=== PATIENT | female | born 1940 | race Caucasian/White ===

== ENCOUNTER → 2016-05-09 | Outpatient (CLI) | payer BC ==
[~2016-05-09] MED LIST: ALBU18002 INH; ATOR10TA88 PO; ATV5 PO; CALC0.2510 PO; CLIMARA; ESCI10TA17 PO; EXCEDRIN ES PO; GABA600T PO; GADAVIST IV PRN; GLCSUNK PO; GLUCOSAMINE SULFATE PO; GUAI1TAB68 PO; IMD/2 PO; IPRASOL4 INH; LSN25 PO; LXP/10 PO; METAMUCIL TABLETS PO; MGNO400 PO; MORP30TA PO; MORP30TA23 PO; MRPSR30 PO; MULT-506 PO; NRN600 PO; OMEG10007 PO; OSCAL; OXGN; PRED10TA PO; PRLSR20 PO; PSYLCAP5 PO; SPRIN/30 INH; TRMCR515 TOP; UMEC1AER INH; [UNRECOGNIZED DRUG - CODE] PO
--- NOTE | 2016-05-09 17:02 | DIAGNOSTIC IMAGING REPORT ---
LUMBAR SPINE MRI WITH AND WITHOUT CONTRAST HISTORY: CHRONIC BILATERAL LOWER BACK, bilateral SCIATICA TECHNIQUE: Multiplanar multisequence MRI of the lumbar spine was performed both before and after the intravenous administration of contrast. COMPARISON: Lumbar spine MRI 03/23/2013. FINDINGS: For the purpose of the report the L5-S1 disc space will be located on axial image 27 of 30. Moderate S-shaped scoliosis of the thoracolumbar spine present convex curvature to the right within the lumbar spine. No fracture or subluxation. Moderate disc space narrowing at L3-L4 with severe disc space narrowing L4-L5 and L5-S1 with small endplate osteophytes. This is not significantly changed. The conus terminates at the L2 level. The right kidney appears absent. Paraspinal soft tissues are unremarkable. Mild endplate edema within the lower lumbar spine is likely due to the long-standing degenerative change. There is left greater than right facet degenerative changes within the lumbar spine likely result of the scoliosis. 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 L1-L2: Small broad-based posterior disc bulge without significant central canal or neural foraminal narrowing. L2-L3: Broad-based posterior disc bulge and mild facet hypertrophy resulting in mild central canal and mild bilateral neural foraminal narrowing. L3-L4: Broad-based posterior disc bulge with ligamentum and facet hypertrophy resulting in mild to moderate central canal and mild left-sided neural foraminal narrowing. L4-L5: Broad-based posterior disc bulge asymmetric to the left with facet hypertrophy resulting in moderate central canal and moderate left-sided neural foraminal narrowing. L5-S1: No significant central canal narrowing. There is mild right-sided neural foraminal narrowing. IMPRESSION: 1. Overall, similar appearance to the multilevel lumbar spondylosis as described above compared to the 2012 MRI. This is most pronounced at the L4-5 level. 2. No acute fracture or subluxation. Electronically signed by: Paulo Null M.D. 05/09/2016 5:00 PM Dictated Date/Time: 05/09/2016 4:50 PM
== END | disposition home or self-care (01) ==
LOC: C.MRI 15:27
PROVIDERS: ATTEND Internal Medicine
DX: M54.42 Lumbago with sciatica, left side (principal); M54.41 Lumbago with sciatica, right side; G89.29 Other chronic pain; M47.816 Spondylosis without myelopathy or radiculopathy, lumbar region

== ENCOUNTER 2016-05-12 20:30 | Inpatient (IN) | payer BC, OTHER ==
[~2016-05-12] VITALS: Ht 160 cm; Wt 50.4 kg
[~2016-05-12 20:30] MED LIST changes: -ALBU18002 INH; -ATOR10TA88 PO; -ATV5 PO; -CALC0.2510 PO; -ESCI10TA17 PO; -GABA600T PO; -GADAVIST IV PRN; -GLCSUNK PO; -GLUCOSAMINE SULFATE PO; -GUAI1TAB68 PO; -IPRASOL4 INH; -LSN25 PO; -LXP/10 PO; -MGNO400 PO; -MORP30TA23 PO; -MRPSR30 PO; -MULT-506 PO; -NRN600 PO; -OMEG10007 PO; -OXGN; -PRED10TA PO; -PRLSR20 PO; -PSYLCAP5 PO; -SPRIN/30 INH; -TRMCR515 TOP; -UMEC1AER INH
[2016-05-12] MEDS ORDERED: MORP30TA23 PO (21:01)
[2016-05-12] MEDS ORDERED: ALBU18002 INH (21:01)
[2016-05-12] MEDS ORDERED: TRMCR515 TOP (21:01)
[2016-05-12 21:24] LABS: BASO % 0.8 %; BASO ABS # 0.06 K/uL (0-0.2); COMPLETE YES; HEMATOCRIT 45.8 % (37-47); IG% 0.1 %; LYMPH ABS # 2.13 K/uL (1.2-3.4); MEAN CELL VOLUME 86.6 fL (80-100); MEAN CORPUSCULAR HEMOGLOBIN 31.4 pg (25-34); MEAN CORPUSCULAR HGB CONC 36.2 g/dl (32-36); MEAN PLATELET VOLUME 9.7 fL (7.4-10.4); MONO % 7.9 %; NEUT % 61.2 %; PLATELET COUNT 426 K/uL (130-400); RED BLOOD COUNT 5.29 M/uL (4.2-5.4); WHITE BLOOD COUNT 7.09 K/uL (4.8-10.8)
[2016-05-12 21:35] LABS: PARTIAL THROMBOPLASTIN RATIO 1.7; PROTHROMBIN TIME (PATIENT) 10.8 SECONDS (9.0-12.0)
[2016-05-12 21:41] LABS: ALT/SGPT 25 U/L (12-78); BLOOD UREA NITROGEN 10 mg/dl (7-18); CALCIUM 9.7 mg/dl (8.5-10.1); CARBON DIOXIDE 24 mmol/L (21-32); CHLORIDE 100 mmol/L (98-107); CREATININE 0.91 mg/dl (0.60-1.20); GLUCOSE 148 mg/dl (70-99); POTASSIUM 3.4 mmol/L (3.5-5.1); SODIUM 137 mmol/L (136-145)
[2016-05-12 21:45] LABS: ALB/GLOB RATIO 0.9 (0.9-2); ALKALINE PHOSPHATASE 91 U/L (45-117); AST/SGOT 47 U/L (15-37); CKMB/CK RATIO 1.7 (0-3.0)
--- NOTE | 2016-05-12 21:55 | DIAGNOSTIC IMAGING REPORT ---
CHEST ONE VIEW PORTABLE CLINICAL HISTORY: Shortness of breath COMPARISON STUDY: 10/13/2010 FINDINGS: There are postsurgical changes within the right hemithorax. There is mild elevation of the right hilum. There is slight elevation of the left lung interstitium. This could represent asymmetric edema, or a left lung interstitial inflammatory process. Clinical and radiographic follow-up is recommended. There is no significant pleural fluid.[ IMPRESSION: 1. Postsurgical changes on the right 2. Mild elevation the left lung interstitium. This could reflect mild asymmetric edema, or left lung interstitial inflammatory process. Clinical and radiographic follow-up is recommended Electronically signed by: Reji Lazo M.D. 05/12/2016 9:53 PM Dictated Date/Time: 05/12/2016 9:51 PM
[2016-05-12] MEDS ORDERED: METHYLPREDNISOLONE 125 MG VIAL IV STA (21:56)
[2016-05-12] MEDS ORDERED: SODIUM CHLORIDE 0.9% 1000ML 1,000 ML IV STA (21:56)
[2016-05-12] MEDS ORDERED: ALBUT/IPRATROP 3MG/0.5MG NEB 3 ML VIAL INH ONE (22:00)
[2016-05-12] MEDS ORDERED: LEVAQUIN 750MG / 150ML D5W IV STA (22:01)
[2016-05-12] MEDS ORDERED: PIPERACILLIN/TAZOBACTAM 4.5 GM/100ML D5W IV STA (22:01)
[2016-05-12 22:32] LABS: C-REACTIVE PROTEIN 2.08 mg/dl (0-0.29); MAGNESIUM 1.9 mg/dl (1.8-2.4); PHOSPHORUS 1.7 mg/dl (2.5-4.9); THYROID STIMULATING HORMONE 0.148 uIu/ml (0.300-4.500)
[2016-05-12] MEDS ORDERED: TRIAMCINOLONE ACET 0.5% CR 15 GM TUBE EXT PRN (22:45)
[2016-05-12] MEDS ORDERED: POTASSIUM PHOS 3 MMOL/1 ML INFUSION IV STA (22:50)
[2016-05-12] MEDS ORDERED: POTASSIUM PHOSPHATE INJ 24 MMOL in SODIUM CHLORIDE 0.9% 500ML 500 ML IV STA (23:00)
[2016-05-12] MEDS ORDERED: ONDANSETRON INJ 2 MG/ML 2 ML VIAL IV PRN (23:00)
[2016-05-12] MEDS ORDERED: ACETAMINOPHEN 325 MG TAB PO PRN (23:00)
[2016-05-12] MEDS ORDERED: ALBUTEROL 0.083% NEBU SOLN 3 ML VIAL INH PRN (23:00)
[2016-05-12 23:26] LABS: VEN BLD GAS O2 SATURATION < 60.0 %; VEN BLOOD GAS BASE EXCESS 1.7 mmol/L; VENOUS BLOOD GAS PCO2 46 mmHg (38.0-50.0); VENOUS BLOOD GAS PO2 23 mmHg
[2016-05-12 23:37] LABS: URINE APPEARANCE CLEAR (CLEAR); URINE BILIRUBIN NEG (NEG); URINE COLOR YELLOW; URINE NITRITE NEG (NEG); URINE PH 7.5 (4.5-7.5); URINE SPECIFIC GRAVITY 1.004 (1.000-1.030); UROBILINOGEN NEG (NEG); ZZUR CULT IF INDIC CLEAN CATCH NO
[2016-05-12 23:41] LABS: MANUAL MICROSCOPIC REQUIRED? NO; REVIEW REQ? NO
[2016-05-12] MEDS ORDERED: PIPERACILL/TAZOBAC CONSULT ACTIVE PRN (23:45)
[2016-05-12 23:50] VITALS: BP 131/73; PULSE 119; TEMP 37.1; O2SAT 93; Ht 160 cm; Wt 50.4 kg
[2016-05-13] MEDS: MoRPHine SULFATE IR 15 MG TAB (IMMEDIATE RELEASE) PO PRN ×3 (00:11→22:28)
[2016-05-13] MEDS: LORAZEPAM 0.5 MG TAB PO PRN ×2 (00:11→20:29)
[2016-05-13] MEDS: ATORVASTATIN 10 MG TAB PO SCH (00:23)
[2016-05-13] MEDS ORDERED: MoRPHine SULFATE CR 15 MG TAB (MS CONTIN) ONE (00:41)
[2016-05-13] MEDS ORDERED: LEVOFLOXACIN CONSULT ACTIVE PRN (00:45)
[2016-05-13] MEDS: MoRPHine SULFATE CR 15 MG TAB (MS CONTIN) PO SCH ×3 (00:45→16:11)
[2016-05-13] MEDS ORDERED: PIPERACILL/TAZOBAC IV 3.375 GM in DEXTROSE 5% 100ML 100 ML IV SCH (04:00)
[2016-05-13] MEDS: HEPARIN SOD 5000 UNIT/0.5 ML CARP SQ SCH ×3 (05:16→22:03)
[2016-05-13] MEDS ORDERED: MoRPHine SULFATE CR 15 MG TAB (MS CONTIN) PO SCH (06:00)
[2016-05-13] MEDS ORDERED: METHYLPREDNISOLONE IV 40 MG in SYRINGE 0 ML IV SCH (06:00)
[2016-05-13 07:22] LABS: HEMATOCRIT 39.5 % (37-47); MEAN CELL VOLUME 88.6 fL (80-100); MEAN CORPUSCULAR HEMOGLOBIN 30.7 pg (25-34); MEAN CORPUSCULAR HGB CONC 34.7 g/dl (32-36); MEAN PLATELET VOLUME 9.9 fL (7.4-10.4); PLATELET COUNT 413 K/uL (130-400); RED BLOOD COUNT 4.46 M/uL (4.2-5.4); WHITE BLOOD COUNT 7.83 K/uL (4.8-10.8)
[2016-05-13 07:44] LABS: CALCIUM 9.1 mg/dl (8.5-10.1); CREATININE 1.1 mg/dl (0.60-1.20); POTASSIUM 3.8 mmol/L (3.5-5.1)
[2016-05-13 07:50] LABS: PHOSPHORUS 4.3 mg/dl (2.5-4.9)
[2016-05-13 08:00] VITALS: O2SAT 96
[2016-05-13 08:01] VITALS: BP 108/52; PULSE 65; TEMP 36.6; O2SAT 96
[2016-05-13] MEDS: PSYLLIUM 58.6% PWD PACK S\\F PO SCH ×2 (08:07→20:22)
[2016-05-13] MEDS: TIOTROPIUM BROMIDE 5 PUFF/90 MCG INH INH SCH (08:07)
[2016-05-13] MEDS: PANTOprazole SOD 40 MG TAB PO SCH (08:08)
[2016-05-13] MEDS: MULTIVITAMIN TAB PO SCH (08:08)
[2016-05-13] MEDS: GABAPENTIN 600 MG TAB PO SCH ×2 (08:08→20:23)
[2016-05-13] MEDS ORDERED: ESCITALOPRAM OXALATE 10 MG TAB PO SCH (09:00)
[2016-05-13] MEDS ORDERED: GLUCOSAMINE SULFATE PO SCH (09:00)
--- NOTE | 2016-05-13 15:04 | DIAGNOSTIC IMAGING REPORT ---
TWO VIEW CHEST CLINICAL HISTORY: Follow-up abnormal chest x-ray. FINDINGS: PA and lateral chest radiographs are compared to study dated 05/12/2016 and correlated with chest CT dated 09/01/2009. The PA view is degraded by patient rotation. The heart is mildly enlarged and there is atherosclerotic calcification of the thoracic aorta. The pulmonary vasculature is noncongested. Advanced emphysema and chronic interstitial thickening is similar to previous. No airspace consolidation or pleural effusion is identified. There is no pneumothorax. The skeletal structures are osteopenic. Degenerative change and scoliosis is noted throughout the thoracic spine. IMPRESSION: Cardiomegaly and advanced emphysema. No acute cardiopulmonary abnormality is identified. Electronically signed by: Lenny Villa M.D. 05/13/2016 3:02 PM Dictated Date/Time: 05/13/2016 2:59 PM
--- NOTE | 2016-05-13 15:20 | Progress Note ---
Medicine Progress Note Date & Time of Visit: May 13, 2016 at 15:10. Subjective Patient seen and examined. Feels that her breathing has significantly improved. Occasional dry cough. Objective Last 8 Hrs Date Time Temp Pulse Resp B/P Pulse Ox O2 Delivery O2 Flow Rate FiO2 05/13/16 08:01 36.6 65 16 108/52 96 3.0 05/13/16 08:00 96 Nasal Cannula 3.0 Physical Exam: General-awake; alert; NAD Eyes-EOMI; no scleral icterus Neck-no stridor; trachea midline Lungs-somewhat coarse breath sounds throughout Heart-RRR; no m/r/g Abdomen-soft; NTND; nBS Extremities-no c/c/e; no deformity Neuro-no gross focal deficits Laboratory Results: Last 24 Hours Test 05/12/16 21:10 05/12/16 22:23 05/12/16 22:29 05/12/16 22:41 White Blood Count 7.09 K/uL Red Blood Count 5.29 M/uL Hemoglobin 16.6 g/dL Hematocrit 45.8 % Mean Corpuscular Volume 86.6 fL Mean Corpuscular Hemoglobin 31.4 pg Mean Corpuscular Hemoglobin Concent 36.2 g/dl Platelet Count 426 K/uL Mean Platelet Volume 9.7 fL Neutrophils (%) (Auto) 61.2 % Lymphocytes (%) (Auto) 30.0 % Monocytes (%) (Auto) 7.9 % Eosinophils (%) (Auto) 0.0 % Basophils (%) (Auto) 0.8 % Neutrophils # (Auto) 4.33 K/uL Lymphocytes # (Auto) 2.13 K/uL Monocytes # (Auto) 0.56 K/uL Eosinophils # (Auto) 0.00 K/uL Basophils # (Auto) 0.06 K/uL RDW Standard Deviation 42.7 fL RDW Coefficient of Variation 13.5 % Immature Granulocyte % (Auto) 0.1 % Immature Granulocyte # (Auto) 0.01 K/uL Erythrocyte Sedimentation Rate 29 mm/hr Prothrombin Time 10.8 SECONDS Prothromb Time International Ratio 1.0 Activated Partial Thromboplast Time 44.0 SECONDS Partial Thromboplastin Ratio 1.7 Sodium Level 137 mmol/L Potassium Level 3.4 mmol/L Chloride Level 100 mmol/L Carbon Dioxide Level 24 mmol/L Anion Gap 13.0 mmol/L Blood Urea Nitrogen 10 mg/dl Creatinine 0.91 mg/dl Est Creatinine Clear Calc Drug Dose 41.8 ml/min Estimated GFR () 71.0 Estimated GFR (Non- 61.3 BUN/Creatinine Ratio 11.0 Random Glucose 148 mg/dl Calcium Level 9.7 mg/dl Phosphorus Level 1.7 mg/dl Magnesium Level 1.9 mg/dl Total Bilirubin 0.6 mg/dl Aspartate Amino Transf (AST/SGOT) 47 U/L Alanine Aminotransferase (ALT/SGPT) 25 U/L Alkaline Phosphatase 91 U/L Total Creatine Kinase 465 U/L Creatine Kinase MB 8.1 ng/ml Creatine Kinase MB Ratio 1.7 Troponin I < 0.015 ng/ml C-Reactive Protein 2.08 mg/dl Total Protein 7.8 gm/dl Albumin 3.7 gm/dl Globulin 4.1 gm/dl Albumin/Globulin Ratio 0.9 Lipase 216 U/L Procalcitonin < 0.05 ng/mL Thyroid Stimulating Hormone (TSH) 0.148 uIu/ml Bedside Lactic Acid Venous 1.62 mmol/L XY-Atl-Z-Type Natriuretic Peptide 858 pg/ml Influenza Type A Antigen Neg for Influ A Influenza Type B Antigen Neg for Influ B Test 05/12/16 23:00 05/12/16 23:08 05/13/16 06:47 05/13/16 08:15 Urine Color YELLOW Urine Appearance CLEAR Urine pH 7.5 Urine Specific [place] 1.004 Urine Protein NEG Urine Glucose (UA) NEG Urine Ketones TRACE Urine Occult Blood TRACE Urine Nitrite NEG Urine Bilirubin NEG Urine Urobilinogen NEG Urine Leukocyte Esterase NEG Urine WBC (Auto) 0 /hpf Urine RBC (Auto) 0-4 /hpf Urine Hyaline Casts (Auto) 0 /lpf Urine Epithelial Cells (Auto) 5-10 /lpf Urine Bacteria (Auto) NEG Venous Blood pH 7.39 Venous Blood Partial Pressure CO2 46 mmHg Venous Blood Partial Pressure O2 23 mmHg Venous Blood HCO3 27 mmol/L Venous Blood Oxygen Saturation < 60.0 % Venous Blood Base Excess 1.7 mmol/L White Blood Count 7.83 K/uL Red Blood Count 4.46 M/uL Hemoglobin 13.7 g/dL Hematocrit 39.5 % Mean Corpuscular Volume 88.6 fL Mean Corpuscular Hemoglobin 30.7 pg Mean Corpuscular Hemoglobin Concent 34.7 g/dl RDW Standard Deviation 45.0 fL RDW Coefficient of Variation 13.8 % Platelet Count 413 K/uL Mean Platelet Volume 9.9 fL Sodium Level 139 mmol/L Potassium Level 3.8 mmol/L Chloride Level 100 mmol/L Carbon Dioxide Level 26 mmol/L Anion Gap 13.0 mmol/L Blood Urea Nitrogen 12 mg/dl Creatinine 1.10 mg/dl Est Creatinine Clear Calc Drug Dose 34.6 ml/min Estimated GFR () 56.5 Estimated GFR (Non- 48.7 BUN/Creatinine Ratio 11.0 Random Glucose 210 mg/dl Calcium Level 9.1 mg/dl Phosphorus Level 4.3 mg/dl Magnesium Level 2.0 mg/dl Free Thyroxine 1.21 ng/dl Free Triiodothyronine 1.65 pg/ml Date/Time Source Procedure Growth Status 05/12/16 23:08 Blood Blood Culture Pending Received 05/12/16 22:10 Blood Blood Culture Pending Received 05/12/16 23:08 Sputum Expectorated Sputum Gram Stain - Final Resulted 05/12/16 23:08 Sputum Expectorated Sputum Sputum Culture Pending Resulted Assessment & Plan Patient is a 76 y/o female who presented with worsening SOB. COPD exacerbation - continue nebulizers - transition methylprednisolone to prednisone - continue levofloxacin - discontinue Zosyn - CXR negative for pneumonia - continue tiotropium - wean supplemental oxygen as able Chronic back pain - continue outpatient morphine regimen DVT prophylaxis with heparin sq PT/OT/social media content manager for dispo recommendations Current Inpatient Medications: Current Inpatient Medications Medications (Trade) Dose Ordered Sig/Lan Route Start Time Stop Time Status Last Admin Dose Admin Atorvastatin Calcium (Lipitor Tab) 10 mg DAILY PO 05/13/16 09:00 06/12/16 08:59 05/13/16 00:23 10 MG Gabapentin (Neurontin Tab) 600 mg BID PO 05/13/16 09:00 06/12/16 08:59 05/13/16 08:08 600 MG Lorazepam (Ativan Tab) 0.5 mg UD PRN PO 05/12/16 22:45 06/11/16 22:44 05/13/16 00:11 0.5 MG Morphine Sulfate (MoRPHine SULFATE IR TAB) 30 mg Q4H PRN PO 05/12/16 22:45 05/26/16 22:44 05/13/16 13:41 30 MG Multivitamins (Multivitamin Tab) 1 tab DAILY PO 05/13/16 09:00 06/12/16 08:59 05/13/16 08:08 1 TAB Tiotropium [place] (Spiriva Handihaler Inhaler) 1 puff DAILY INH 05/13/16 09:00 06/12/16 08:59 05/13/16 08:07 1 PUFF Triamcinolone Acetonide (Kenalog 0.5% Crm) 1 appln BID PRN EXT 05/12/16 22:45 06/11/16 22:44 Miscellaneous Information (Order Awaiting Action) 1 ea QS N/A 05/13/16 08:00 06/12/16 07:59 Pantoprazole Sodium (Protonix Tab) 40 mg QAM PO 05/13/16 09:00 06/12/16 08:59 05/13/16 08:08 40 MG Psyllium Hydrophilic Mucilloid 1 pkt 1 pkt BID PO 05/13/16 09:00 06/12/16 08:59 Levofloxacin/Prmx (Levaquin / D5W/ Premixed D5W) 150 ml @ 100 mls/hr Q48H IV 05/15/16 00:00 05/21/16 00:00 Albuterol Sulfate (Ventolin 0.083% 2.5MG/3ML Neb) 2.5 mg Q6R PRN INH 05/12/16 23:00 06/11/16 22:59 Heparin Sodium (Porcine) (Heparin Sq 5000 Unit/0.5ml) 5,000 unit Q8H SQ 05/13/16 06:00 06/12/16 05:59 05/13/16 13:40 5,000 UNIT Acetaminophen (Tylenol Tab) 650 mg Q4H PRN PO 05/12/16 23:00 06/11/16 22:59 Ondansetron HCl (Zofran Inj) 4 mg Q6H PRN IV 05/12/16 23:00 06/11/16 22:59 Levofloxacin (Consult) 1 ea UD PRN N/A 05/13/16 00:45 06/12/16 00:44 Morphine Sulfate (Oramorph Sr Tab) 30 mg Q8H PO 05/13/16 00:00 05/27/16 00:00 05/13/16 08:07 30 MG Escitalopram Oxalate (Lexapro Tab) 10 mg PM PO 05/13/16 21:00 06/12/16 20:59 Prednisone (PredniSONE TAB) 40 mg DAILY PO 05/14/16 09:00 06/13/16 08:59
[2016-05-13 15:41] VITALS: BP 144/75; PULSE 73; TEMP 36.7; O2SAT 95
[2016-05-13 16:00] VITALS: O2SAT 96
[2016-05-13] MEDS: ESCITALOPRAM OXALATE 10 MG TAB PO SCH (20:23)
[2016-05-13] MEDS: ZOLPIDEM TARTRATE 5 MG TAB PO PRN (22:03)
[2016-05-13 23:15] VITALS: BP 155/76; PULSE 82; TEMP 37; O2SAT 95
--- NOTE | 2016-05-13 23:18 | HISTORY & PHYSICAL EXAMINATION ---
DATE OF ADMISSION: 05/12/2016 PRIMARY CARE PHYSICIAN: Ron Ortega MD CHIEF COMPLAINT: Shortness of breath with nausea, vomiting, and diarrhea since yesterday. HISTORY OF PRESENT COMPLAINT: She is a 76-year-old female with significant past medical history including malignant neoplasm of right upper Lung, status post surgery and chemoradiation years ago, COPD, depression, esophageal reflux, chronic pain, and hypersplenism. She apparently has been complaining of nausea, vomiting and diarrhea since yesterday. She has had diarrhea 5 times since yesterday and vomited about 3 or 4 times, and she also complains to have cough with productive of scanty phlegm associated with shortness of breath. Condition got worse that she was taken to the Emergency Room for further evaluation. She does have chest pain, which is not anything separate other than the usual pain she gets and she did have chill, but no documented temperature. No problem with urine or bowel habit. She does not have any headache, any numbness or tingling in the extremities and she does not have any acute joint pain and denies to have any rash and/or any lumps in the body. In the Emergency Room, she was evaluated with chest x-ray and apparent blood test, and the x-ray came out to be positive for probable left lower lobe infiltration and she did have low electrolytes, but white count was normal; but given the history of COPD and lung cancer, she was admitted to telemetry unit for continuation of care. PAST MEDICAL HISTORY: Significant for chronic kidney disease, stage III; history of malignant neoplasm of lung, status post surgery and chemoradiation years ago; COPD, on not any home oxygen; esophageal reflux; myalgia; myositis; hypersplenism; chronic back pain; osteoporosis; and depression as well. PAST SURGICAL HISTORY: Significant for total hysterectomy, right upper lobe lobectomy in 2003, cholecystectomy, splenectomy, and laparoscopy in 2009. FAMILY HISTORY: Significant that father had lung cancer and mother did have bowel obstruction. SOCIAL HISTORY: She is a . She lives alone. She still continues to smoke cigars occasionally. She does not drink and she has been reasonably ambulant, though she requires more help from her daughter recently. ALLERGIES: CODEINE AND PROCAINE. MEDICATIONS: She has been getting atorvastatin 10 mg daily, Lexapro 10 mg daily, fish oil 1 capsule twice daily, Neurontin 600 mg b.i.d., Ativan 0.5 mg as directed, morphine sulfate IR 30 mg 1-2 tablets q. 4 hourly p.r.n., multivitamin 1 tablet daily, Spiriva HandiHaler 1 puff daily, triamcinolone cream as directed, albuterol ProAir 2 puffs q. 4 hourly p.r.n., glucosamine 1 tablet b.i.d., MS Contin 30 mg q. 8 hourly, Prilosec 20 mg daily, and Metamucil as directed. REVIEW OF SYSTEMS: With pertinent negative and positive as in history of present illness. Other systemic review unremarkable. PHYSICAL EXAMINATION: GENERAL: On examination in the Emergency Room, she was having minimal shortness of breath at rest. VITAL SIGNS: Temperature 37.1, pulse was 87, blood pressure 124/76, saturation 93% on 3 liters nasal cannula, and her saturation was noted to be 89% room air on arrival. HEENT: Unremarkable. NECK: Supple. No JVD and no bruit. CHEST: Bilateral wheezing with crackles left base. HEART: S1 and S2 regular. No murmur. ABDOMEN: Soft, benign, and nontender. No organomegaly. Bowel sounds present. EXTREMITIES: Negative for any edema. MUSCULOSKELETAL: Examination of the musculoskeletal system did not show any acute arthritis involving any joint. CENTRAL NERVOUS SYSTEM: She is alert, awake, and oriented x3. She is generally weak, but no focal sensory or motor deficit appreciated. LABORATORY DATA: Labs noted today. White count was 7.09, H\T\H 16.6/45.8, and platelets were 426. ESR 29. Sodium 137, potassium 3.4, chloride 100, carbon dioxide 24, BUN 10, creatinine 0.91, random glucose 148, and phosphorus was low at 1.7. Liver function test fairly unremarkable. AST 47, total CK was 465, MB 8.1, troponin less than 0.015. C-reactive protein 2.08. TSH was 0.148. PTT was elevated to 44.0 with ratio of 1.7. EKG was in sinus rhythm at a rate of 86 per minute, nonspecific ST-T wave changes, normal axis. Chest x-ray reported as post surgical changes in the right apical area and mild elevation of the left lung interstitium, could represent mild asymmetric edema and left lung interstitial inflammatory process. Followup was recommended. IMPRESSION AND PLAN: 1. Left lower lobe pneumonitis/pneumonia. Sputum and blood culture has been sent and the patient was started with intravenous Levaquin and Zosyn. She will be admitted to telemetry floor. 2. Chronic obstructive pulmonary disease exacerbation secondary to pneumonia. She was given Solu-Medrol to continue with that, given nebulized bronchodilator and continue with her other bronchodilators as at home. We will need 2 step/nocturnal Pulse Oximetry before discharging the patient. 3. History of right apical lung cancer, status post surgery and chemo radiation in 2003. No acute issue with that except some electrolyte imbalance. 4. Nausea, vomiting, and diarrhea. May have gastritis or gastroenteritis. We will check stool for Clostridium difficile and also stool culture. 5. Hypertension. Blood pressure seems stable at this time. 6. Chronic pain, mostly back and also lung pain. She has been on morphine, MS Contin and MSIR. We will continue with those. 7. Gastrointestinal prophylaxis with proton pump inhibitor. 8. Deep venous thrombosis prophylaxis with subcutaneous heparin. 9. Code status: Discussed with the patient that she will be level 3 resuscitation without mechanical ventilation. In my clinical judgment, the beneficiary meets criteria as per CMS for 2-midnight stay in the hospital. MTDD
[2016-05-14] VITALS (7 sets, daily range): BP systolic 127–170; BP diastolic 66–84; PULSE 63–72; TEMP 36.5–36.9; O2SAT 91–96
[2016-05-14] MEDS ORDERED: ALBUTEROL INH PRN (01:00)
[2016-05-14] MEDS: HEPARIN SOD 5000 UNIT/0.5 ML CARP SQ SCH ×3 (06:00→22:02)
--- NOTE | 2016-05-14 06:57 | EMERGENCY ROOM VISIT NOTE ---
History First contact with patient: 21:43 Chief Complaint: SHORTNESS OF BREATH Stated Complaint: CHRONIC PAIN, COPD EXACERBATION, PNEUMONIA, Nursing Triage Summary: Pt arrived via [facility] from home. Per pt, she developed nausea, vomiting and diarrhea yesterday. Pt reports a friend had GI illness and respiratory illness recently. Today the pt reports she had worsening SOB all day. Hx of COPD and CHF. History of Present Illness The patient is a 76 year old female who presents to the Emergency Department via EMS for evaluation of her shortness of breath and worsening cough. She does report a history of COPD. 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 She is had no complications from this since. She developed nausea, vomiting, and diarrhea yesterday in addition to the cough and shortness of breath. She had been using her typical medications as prescribed without relief of symptoms. She feels somewhat lightheaded after being up and ambulating. She reports some pain across her chest, but reports that this is been secondary to having the lobectomy performed. She is on chronic pain medication for this. She denies any new pain. She rates her discomfort an 8/10. She denies any fevers, chills, aspiration, headaches, dizziness, or abdominal pain. She denies any blood in her vomit or stool. Review of Systems A complete 10-point Review of Systems was discussed with the patient, with pertinent positives and negatives listed in the History of Present Illness. All remaining Review of Systems questions can be considered negative unless otherwise specified. Past Medical/Surgical History Medical Problems: (1) Adenocarcinoma of lung (2) Chronic pain (3) Chronic pain syndrome (4) COPD exacerbation (5) Disorder of electrolytes (6) Gastroesophageal reflux disease Social History Smoking Status: Current Some Day Smoker Smokeless Tobacco Use: No Alcohol Use: none Drug Use: none Marital Status: single Current/Historical Medications Scheduled Atorvastatin (Lipitor), 10 MG PO DAILY Escitalopram (Lexapro), 10 MG PO DAILY Fish Oil ([place]-3), 1 CAP PO BID Gabapentin (Neurontin *), 600 MG PO BID Glucosamine Sulfate (Glucosamine Unknown Dose), 1 TABS PO BID Morphine Sulfate (Ms Contin), 30 MG PO Q8 Morphine Sulfate Ir (Morphine Sulfate Ir), 1-2 TAB PO Q4HR PRN Multivitamin (Multivitamin), 1 TAB PO DAILY Omeprazole (Prilosec), 20 MG PO DAILY Tiotropium [place] (Spiriva Handihaler), 1 CAP INH DAILY [Metamucil Tablets], 1 PO BID Scheduled PRN Albuterol Sulfate (Proair Respiclick), 2 PUFF INH Q4 PRN for SOB/Wheezing Lorazepam (Ativan *), 0.5 MG PO UD PRN for Anxiety/Insomnia Triamcinolone Acet (Triamcinolone Acetonide), 1 APPLN TOP BID PRN for SKIN IRRITATION Allergies Coded Allergies: Codeine (Verified Allergy, Unknown, 05/12/16) Procaine (Verified Allergy, Unknown, SWELLING, 05/12/16) Physical Exam Vital Signs Date Time Temp Pulse Resp B/P Pulse Ox O2 Delivery O2 Flow Rate FiO2 05/12/16 22:30 84 21 97 Nebulizer 7.0 05/12/16 22:28 158/93 05/12/16 22:00 85 17 92 Nasal Cannula 2.0 05/12/16 21:58 140/75 05/12/16 21:30 86 13 92 05/12/16 21:14 87 14 124/76 93 Nasal Cannula 3.0 05/12/16 20:39 87 05/12/16 20:36 77 Room Air 05/12/16 20:35 92 Nasal Cannula 3.0 05/12/16 20:32 91 Nasal Cannula 2.0 05/12/16 20:30 89 Room Air 05/12/16 20:30 37.1 97 22 172/106 89 Room Air 05/12/16 20:30 89 Room Air Pain Rating (0-10): 8 Physical Exam VITAL SIGNS - Vital signs and nursing notes were reviewed. GENERAL - 76-year-old female appearing her stated age who is in moderate distress. Unable to complete full sentences secondary to respiratory distress. HEAD - NC/AT. EYES - PERRL with EOMI bilaterally. Sclera anicteric. Palpebral conjunctiva pink and moist with no injection noted. EARS - No deformities of external structures noted on gross examination bilaterally. No pain elicited with palpation of the tragus bilaterally. External auditory canals without discharge or otorrhea. Tympanic membranes pearly roe without retraction or bulging. NOSE - Midline and without cyanosis. No epistaxis or purulent drainage noted. Septum midline without deviation or septal hematoma noted. MOUTH/OROPHARYNX - Without perioral cyanosis. Buccal mucosa pink and moist and without leukoplakia. Tongue midline with equal elevation of palate bilaterally. No tonsillar hypertrophy, erythema, or exudates noted. NECK - Neck with FROM. Supple to palpation. LUNGS - Chest wall symmetric. Moderate intercostal retractions appreciated. Normal vesicular breath sounds CTA B/L. Diffuse inspiratory wheezes appreciated throughout. No rales or rhonchi noted. CARDIAC - RRR with S1/S2. No murmur, rubs, or gallops appreciated. No reproducible tenderness to palpation appreciated over the anterior chest wall. ABDOMEN - Abdominal contour flat and without pulsations or visible masses. BS normoactive all four quadrants. No tenderness, palpable masses, hepatosplenomegaly, or ascites noted. EXTREMITIES - No clubbing or peripheral cyanosis. No pretibial edema present. NEUROLOGIC - Cranial nerves II through XII grossly intact. Sensory intact to light touch throughout. PSYCH - A&Ox3 and cooperates fully with examiner. Pt is very pleasant and interacts well with examiner. Medical Decision & Procedures ER Provider Diagnostic Interpretation: Radiological imaging and reports were reviewed by myself. Radiologist's Interpretation as follows: CHEST ONE VIEW PORTABLE CLINICAL HISTORY: Shortness of breath COMPARISON STUDY: 10/13/2010 FINDINGS: There are postsurgical changes within the right hemithorax. There is mild elevation of the right hilum. There is slight elevation of the left lung interstitium. This could represent asymmetric edema, or a left lung interstitial inflammatory process. Clinical and radiographic follow-up is recommended. There is no significant pleural fluid.[ IMPRESSION: 1. Postsurgical changes on the right 2. Mild elevation the left lung interstitium. This could reflect mild asymmetric edema, or left lung interstitial inflammatory process. Clinical and radiographic follow-up is recommended Laboratory Results Test 05/12/16 21:10 05/12/16 22:23 05/12/16 22:29 05/12/16 22:41 Immature Granulocyte % (Auto) 0.1 % White Blood Count 7.09 K/uL (4.8-10.8) Red Blood Count 5.29 M/uL (4.2-5.4) Hemoglobin 16.6 g/dL (12.0-16.0) Hematocrit 45.8 % (37-47) Mean Corpuscular Volume 86.6 fL (80-100) Mean Corpuscular Hemoglobin 31.4 pg (25-34) Mean Corpuscular Hemoglobin Concent 36.2 g/dl (32-36) Platelet Count 426 K/uL (130-400) Mean Platelet Volume 9.7 fL (7.4-10.4) Neutrophils (%) (Auto) 61.2 % Lymphocytes (%) (Auto) 30.0 % Monocytes (%) (Auto) 7.9 % Eosinophils (%) (Auto) 0.0 % Basophils (%) (Auto) 0.8 % Neutrophils # (Auto) 4.33 K/uL (1.4-6.5) Lymphocytes # (Auto) 2.13 K/uL (1.2-3.4) Monocytes # (Auto) 0.56 K/uL (0.11-0.59) Eosinophils # (Auto) 0.00 K/uL (0-0.5) Basophils # (Auto) 0.06 K/uL (0-0.2) Immature Granulocyte # (Auto) 0.01 K/uL (0.00-0.02) Erythrocyte Sedimentation Rate 29 mm/hr (0-21) Prothrombin Time 10.8 SECONDS (9.0-12.0) Prothromb Time International Ratio 1.0 (0.9-1.1) Activated Partial Thromboplast Time 44.0 SECONDS (21.0-31.0) Partial Thromboplastin Ratio 1.7 Total Bilirubin 0.6 mg/dl (0.2-1) Aspartate Amino Transf (AST/SGOT) 47 U/L (15-37) Alanine Aminotransferase (ALT/SGPT) 25 U/L (12-78) Alkaline Phosphatase 91 U/L (45-117) Total Creatine Kinase 465 U/L (26-192) Creatine Kinase MB 8.1 ng/ml (0.5-3.6) Creatine Kinase MB Ratio 1.7 (0-3.0) Troponin I < 0.015 ng/ml (0-0.045) C-Reactive Protein 2.08 mg/dl (0-0.29) Total Protein 7.8 gm/dl (6.4-8.2) Albumin 3.7 gm/dl (3.4-5.0) Globulin 4.1 gm/dl (2.5-4.0) Albumin/Globulin Ratio 0.9 (0.9-2) Lipase 216 U/L (73-393) Procalcitonin < 0.05 ng/mL (0-0.5) Thyroid Stimulating Hormone (TSH) 0.148 uIu/ml (0.300-4.500) Bedside Lactic Acid Venous 1.62 mmol/L (0.90-1.70) ZC-Qbx-O-Type Natriuretic Peptide 858 pg/ml (0-1800) Influenza Type A Antigen Neg for Influ A (NEG) Influenza Type B Antigen Neg for Influ B (NEG) Medications Administered Medications (Trade) Dose Ordered Sig/Lan Route Start Time Stop Time Status Last Admin Dose Admin Sodium Chloride (Nss 1000ml) 1,000 ml @ 100 mls/hr Q10H STAT IV 05/12/16 21:56 05/12/16 23:45 DC 05/12/16 23:00 100 MLS/HR Methylprednisolone Sodium Succinate (Solu-Medrol IV) 125 mg NOW STAT IV 05/12/16 21:56 05/12/16 22:00 DC 05/12/16 22:59 125 MG Albuterol/ Ipratropium (Duoneb) 12 ml ONE ONCE INH 05/12/16 22:00 05/12/16 22:01 DC 05/12/16 22:15 12 ML Piperacillin Sod/ Tazobactam Sod (Zosyn Iv) 4.5 gm NOW STAT IV 05/12/16 22:01 05/12/16 22:03 DC 05/12/16 22:59 4.5 GM Levofloxacin (Levaquin / D5W) 750 mg NOW STAT IV 05/12/16 22:01 05/12/16 22:03 DC 05/13/16 00:14 750 MG Lorazepam (Ativan Tab) 0.5 mg UD PRN PO 05/12/16 22:45 06/11/16 22:44 05/13/16 20:29 0.5 MG Morphine Sulfate (MoRPHine SULFATE IR TAB) 30 mg Q4H PRN PO 05/12/16 22:45 05/26/16 22:44 05/13/16 22:28 30 MG Triamcinolone Acetonide (Kenalog 0.5% Crm) 1 appln BID PRN EXT 05/12/16 22:45 06/11/16 22:44 05/13/16 22:28 1 APPLN Procedure Patient was placed on the monitoring manager and monitored throughout the entire extent of their stay. In addition, the patient's pulse oximetry was monitored throughout the entire stay. Any abnormalities or aberrancies were addressed appropriately. ECG Indication: SOB/dyspnea Rate (beats per minute): 86 Rhythm: normal sinus Findings: no acute ischemic change, no ectopy Change: no significant change (from 10/10/2010.) ED Course Patient was seen and evaluated by myself. Labs were drawn, saline lock in place. Patient was hydrated with a 1000 mL normal saline bolus rate of 100 mL per hour. She was treated with 125 Solu-Medrol and an hour-long DuoNeb. Chest x-ray was reviewed and demonstrates what appears to be in LEFT lower lobe infiltrate. Patient was treated with IV Zosyn and IV Levaquin. Laboratory results demonstrate no acute leukocytosis, significant anemia, or bandemia. The patient has no significant electrolyte abnormalities. Troponin was negative. Pro calcitonin was not elevated. Influenza was negative. The patient was admitted to the [facility] service for further evaluation and management. Patient admitted in fair condition. Medical Decision Given the patient's presentation and exam findings, I did elect to perform the above-mentioned workup. The patient presents today with acute COPD exacerbation and LEFT lower lobe infiltrate. She has no fever. She has no significant electrolyte abnormalities. Cardiac enzymes are negative. Troponin is negative. She responded well to DuoNeb and IV steroids. Patient was moderately hypoxic. Given this, the patient will be admitted for further evaluation and pulmonary management. The patient was admitted in fair condition to the [facility] program. In the evaluation and treatment of this patient, the following differential diagnoses were considered: NH, ASC, Dysrhythmia, Angina, Mediastinitis, GERD, Esophagitis, PE, Pneumonia, Bronchitis, Costochondritis, Rib Fracture, Zoster. Impression Primary Impression: Pneumonia Additional Impressions: COPD exacerbation Hypoxia Departure Information Dispostion Admitted as an inpatient Condition FAIR Referrals Ron Ortega MD (PCP) Forms HOME CARE DOCUMENTATION FORM, IMPORTANT VISIT INFORMATION Patient Instructions [facility] Problem Qualifiers Primary Impression: Pneumonia Pneumonia type: due to unspecified organism Laterality: left Lung location : lower lobe of lung Qualified Codes: J18.9 - Pneumonia, unspecified organism
[2016-05-14 07:00] LABS: HEMATOCRIT 42.2 % (37-47); MEAN CELL VOLUME 88.1 fL (80-100); MEAN CORPUSCULAR HEMOGLOBIN 30.3 pg (25-34); MEAN CORPUSCULAR HGB CONC 34.4 g/dl (32-36); MEAN PLATELET VOLUME 9.8 fL (7.4-10.4); PLATELET COUNT 453 K/uL (130-400); RED BLOOD COUNT 4.79 M/uL (4.2-5.4); WHITE BLOOD COUNT 14.62 K/uL (4.8-10.8)
[2016-05-14 07:32] LABS: BUN/CREATININE RATIO 11.9 (10-20); CALCIUM 9.4 mg/dl (8.5-10.1); CREATININE 1.1 mg/dl (0.60-1.20); POTASSIUM 3.4 mmol/L (3.5-5.1)
[2016-05-14] MEDS: GABAPENTIN 600 MG TAB PO SCH ×2 (07:51→19:14)
[2016-05-14] MEDS: PSYLLIUM 58.6% PWD PACK S\\F PO SCH ×2 (07:52→19:14)
[2016-05-14] MEDS: PANTOprazole SOD 40 MG TAB PO SCH (07:52)
[2016-05-14] MEDS: ATORVASTATIN 10 MG TAB PO SCH (07:52)
[2016-05-14] MEDS: MULTIVITAMIN TAB PO SCH (07:52)
[2016-05-14] MEDS: MoRPHine SULFATE CR 15 MG TAB (MS CONTIN) PO SCH ×4 (07:52→23:36)
[2016-05-14] MEDS: TIOTROPIUM BROMIDE 5 PUFF/90 MCG INH INH SCH (07:52)
[2016-05-14] MEDS ORDERED: POTASSIUM CHLORIDE 20 MEQ TABCR PO ONE (08:30)
[2016-05-14] MEDS: LORAZEPAM 0.5 MG TAB PO PRN ×2 (11:03→17:40)
[2016-05-14] MEDS: MoRPHine SULFATE IR 15 MG TAB (IMMEDIATE RELEASE) PO PRN (11:03)
--- NOTE | 2016-05-14 12:42 | Progress Note ---
Medicine Progress Note Date & Time of Visit: May 14, 2016 at 12:36. Subjective Patient seen and examined. Able to ambulate from bed to bathroom. Still requiring supplemental oxygen. Cough productive of phlegm. Objective Last 8 Hrs Date Time Temp Pulse Resp B/P Pulse Ox O2 Delivery O2 Flow Rate FiO2 05/14/16 10:27 70 91 05/14/16 08:00 94 Nasal Cannula 3.0 05/14/16 07:49 36.6 72 16 145/66 94 3.0 Physical Exam: General-awake; alert; NAD Eyes-EOMI; no scleral icterus Neck-no stridor; trachea midline Lungs-coarse breath sounds throughout; expiratory rubs Heart-RRR; no m/r/g Abdomen-soft; NTND; nBS Extremities-no c/c/e; no deformity Neuro-no gross focal deficits Laboratory Results: Last 24 Hours Test 05/14/16 06:28 White Blood Count 14.62 K/uL Red Blood Count 4.79 M/uL Hemoglobin 14.5 g/dL Hematocrit 42.2 % Mean Corpuscular Volume 88.1 fL Mean Corpuscular Hemoglobin 30.3 pg Mean Corpuscular Hemoglobin Concent 34.4 g/dl RDW Standard Deviation 45.0 fL RDW Coefficient of Variation 14.0 % Platelet Count 453 K/uL Mean Platelet Volume 9.8 fL Sodium Level 142 mmol/L Potassium Level 3.4 mmol/L Chloride Level 104 mmol/L Carbon Dioxide Level 30 mmol/L Anion Gap 8.0 mmol/L Blood Urea Nitrogen 13 mg/dl Creatinine 1.10 mg/dl Est Creatinine Clear Calc Drug Dose 34.6 ml/min Estimated GFR () 56.5 Estimated GFR (Non- 48.7 BUN/Creatinine Ratio 11.9 Random Glucose 94 mg/dl Calcium Level 9.4 mg/dl Assessment & Plan Patient is a 76 y/o female who presented with worsening SOB. COPD exacerbation - continue nebulizers - transitioned methylprednisolone to prednisone (40mg started 05/14/16) and plan for a taper - continue levofloxacin (start 05/13/16) - discontinued Zosyn - CXR negative for pneumonia - continue tiotropium - wean supplemental oxygen as able Chronic back pain - continue outpatient morphine regimen and gabapentin DVT prophylaxis with heparin sq PT/OT/social work administrator for dispo recommendations. Patient expressed interest in rehab. new client banking services clerk to discuss options with patient. Patient does not feel comfortable with discharge home on oxygen. Current Inpatient Medications: Current Inpatient Medications Medications (Trade) Dose Ordered Sig/Lan Route Start Time Stop Time Status Last Admin Dose Admin Atorvastatin [place] (Lipitor Tab) 10 mg DAILY PO 05/13/16 09:00 06/12/16 08:59 05/14/16 07:52 10 MG Gabapentin (Neurontin Tab) 600 mg BID PO 05/13/16 09:00 06/12/16 08:59 05/14/16 07:51 600 MG Lorazepam (Ativan Tab) 0.5 mg UD PRN PO 05/12/16 22:45 06/11/16 22:44 05/14/16 11:03 0.5 MG Morphine Sulfate (MoRPHine SULFATE IR TAB) 30 mg Q4H PRN PO 05/12/16 22:45 05/26/16 22:44 05/14/16 11:03 30 MG Multivitamins (Multivitamin Tab) 1 tab DAILY PO 05/13/16 09:00 06/12/16 08:59 05/14/16 07:52 1 TAB Tiotropium [place] (Spiriva Handihaler Inhaler) 1 puff DAILY INH 05/13/16 09:00 06/12/16 08:59 05/14/16 07:52 1 PUFF Triamcinolone Acetonide (Kenalog 0.5% Crm) 1 appln BID PRN EXT 05/12/16 22:45 06/11/16 22:44 05/13/16 22:28 1 APPLN Pantoprazole Sodium (Protonix Tab) 40 mg QAM PO 05/13/16 09:00 06/12/16 08:59 05/14/16 07:52 40 MG Psyllium Hydrophilic Mucilloid (Metamucil Powder) 1 pkt BID PO 05/13/16 09:00 06/12/16 08:59 Albuterol Sulfate (Ventolin 0.083% 2.5MG/3ML Neb) 2.5 mg Q6R PRN INH 05/12/16 23:00 06/11/16 22:59 05/14/16 00:54 2.5 MG Heparin Sodium (Porcine) (Heparin Sq 5000 Unit/0.5ml) 5,000 unit Q8H SQ 05/13/16 06:00 06/12/16 05:59 05/14/16 06:00 5,000 UNIT Acetaminophen (Tylenol Tab) 650 mg Q4H PRN PO 05/12/16 23:00 06/11/16 22:59 Ondansetron HCl (Zofran Inj) 4 mg Q6H PRN IV 05/12/16 23:00 06/11/16 22:59 Levofloxacin (Consult) 1 ea UD PRN N/A 05/13/16 00:45 06/12/16 00:44 Morphine Sulfate (Oramorph Sr Tab) 30 mg Q8H PO 05/13/16 00:00 05/27/16 00:00 05/14/16 07:52 30 MG Escitalopram Oxalate (Lexapro Tab) 10 mg PM PO 05/13/16 21:00 06/12/16 20:59 05/13/16 20:23 10 MG Prednisone (PredniSONE TAB) 40 mg DAILY PO 05/14/16 09:00 06/13/16 08:59 05/14/16 07:52 40 MG Zolpidem Tartrate (Ambien Tab) 5 mg HS PRN PO 05/13/16 17:45 06/12/16 17:44 05/13/16 22:03 5 MG Albuterol (Proair Hfa) 2 puffs Q4H PRN INH 05/14/16 01:00 06/13/16 00:59 Levofloxacin (Levaquin Tab) 750 mg Q2D@2200 PO 05/14/16 22:00 05/17/16 23:00
[2016-05-14] MEDS: ESCITALOPRAM OXALATE 10 MG TAB PO SCH (19:15)
[2016-05-14] MEDS: ZOLPIDEM TARTRATE 5 MG TAB PO PRN (19:15)
[2016-05-14] MEDS: LEVOFLOXACIN 750 MG TAB PO SCH (22:00)
[2016-05-15] VITALS (8 sets, daily range): BP systolic 121–175; BP diastolic 69–84; PULSE 55–77; TEMP 36.3–36.9; O2SAT 94–96
[2016-05-15] MEDS ORDERED: LEVOFLOXACIN / D5W 750 MG in PREMIXED IN D5W 150 ML IV SCH
[2016-05-15] MEDS ORDERED: NURSING VERBAL MED ORDER ONE (00:45)
[2016-05-15] MEDS: LORAZEPAM 0.5 MG TAB PO PRN ×3 (00:46→17:42)
[2016-05-15] MEDS ORDERED: LORAZEPAM 0.5 MG TAB PO ONE (01:00)
[2016-05-15 05:55] LABS: HEMATOCRIT 43.3 % (37-47); MEAN CELL VOLUME 88.4 fL (80-100); MEAN CORPUSCULAR HGB CONC 35.1 g/dl (32-36); MEAN PLATELET VOLUME 9.8 fL (7.4-10.4); PLATELET COUNT 451 K/uL (130-400); WHITE BLOOD COUNT 9.25 K/uL (4.8-10.8)
[2016-05-15] MEDS: HEPARIN SOD 5000 UNIT/0.5 ML CARP SQ SCH ×3 (06:18→21:03)
[2016-05-15 06:30] LABS: CALCIUM 9.9 mg/dl (8.5-10.1); CREATININE 1.1 mg/dl (0.60-1.20); POTASSIUM 4.1 mmol/L (3.5-5.1)
[2016-05-15] MEDS: ATORVASTATIN 10 MG TAB PO SCH (08:06)
[2016-05-15] MEDS: MoRPHine SULFATE CR 15 MG TAB (MS CONTIN) PO SCH ×3 (08:06→23:54)
[2016-05-15] MEDS: MULTIVITAMIN TAB PO SCH (08:06)
[2016-05-15] MEDS: GABAPENTIN 600 MG TAB PO SCH ×2 (08:06→21:01)
[2016-05-15] MEDS: TIOTROPIUM BROMIDE 5 PUFF/90 MCG INH INH SCH (08:06)
[2016-05-15] MEDS: PANTOprazole SOD 40 MG TAB PO SCH (08:06)
[2016-05-15] MEDS: PSYLLIUM 58.6% PWD PACK S\\F PO SCH ×2 (09:07→20:58)
[2016-05-15] MEDS: MoRPHine SULFATE IR 15 MG TAB (IMMEDIATE RELEASE) PO PRN ×2 (11:18→22:20)
--- NOTE | 2016-05-15 15:45 | Progress Note ---
Medicine Progress Note Date & Time of Visit: May 15, 2016 at 15:23. Subjective Pt was seen and examined Sitting in bed comfortable watching TV Pt said that she is still having SOB on exertion She said that she is still coughing denies any fever, palpitation, dizziness and chest pain. Objective Last 8 Hrs Date Time Temp Pulse Resp B/P Pulse Ox O2 Delivery O2 Flow Rate FiO2 05/15/16 14:17 72 95 05/15/16 08:00 96 Nasal Cannula 3.0 Physical Exam: General- No acute distress Head- atraumatic Eyes- PERRL, EOMI ENT- oropharynx clear Neck- supple, no JVD Lungs- +wheezing Heart- regular rhythm; no murmur Abdomen- normal bowel sounds, soft Extremities- no calf tenderness Neuro- alert, oriented, PERRL, EOMI; no facial palsy Skin- warm & dry Laboratory Results: Last 24 Hours Test 05/15/16 05:31 White Blood Count 9.25 K/uL Red Blood Count 4.90 M/uL Hemoglobin 15.2 g/dL Hematocrit 43.3 % Mean Corpuscular Volume 88.4 fL Mean Corpuscular Hemoglobin 31.0 pg Mean Corpuscular Hemoglobin Concent 35.1 g/dl RDW Standard Deviation 45.0 fL RDW Coefficient of Variation 13.9 % Platelet Count 451 K/uL Mean Platelet Volume 9.8 fL Sodium Level 138 mmol/L Potassium Level 4.1 mmol/L Chloride Level 101 mmol/L Carbon Dioxide Level 29 mmol/L Anion Gap 8.0 mmol/L Blood Urea Nitrogen 17 mg/dl Creatinine 1.10 mg/dl Est Creatinine Clear Calc Drug Dose 34.6 ml/min Estimated GFR () 56.5 Estimated GFR (Non- 48.7 BUN/Creatinine Ratio 15.0 Random Glucose 85 mg/dl Calcium Level 9.9 mg/dl Assessment & Plan COPD exacerbation - Continue prednisone PO with taper dose - continue levofloxacin (start 05/13/16) - Zosyn was discontinued - CXR negative for pneumonia - continue tiotropium - Continue oxygen supplement - Will get 2 step exercise once medically stable - Continue breathing treatment - Guaifenesin for the cough Chronic back pain - continue outpatient morphine regimen and gabapentin DVT prophylaxis with heparin sq Disposition PT/OTeval Will discharge to rehab possible tomorrow Current Inpatient Medications: Current Inpatient Medications Medications (Trade) Dose Ordered Sig/Lan Route Start Time Stop Time Status Last Admin Dose Admin Atorvastatin Calcium (Lipitor Tab) 10 mg DAILY PO 05/13/16 09:00 06/12/16 08:59 05/15/16 08:06 10 MG Gabapentin (Neurontin Tab) 600 mg BID PO 05/13/16 09:00 06/12/16 08:59 05/15/16 08:06 600 MG Morphine Sulfate (MoRPHine SULFATE IR TAB) 30 mg Q4H PRN PO 05/12/16 22:45 05/26/16 22:44 05/15/16 11:18 30 MG Multivitamins (Multivitamin Tab) 1 tab DAILY PO 05/13/16 09:00 06/12/16 08:59 05/15/16 08:06 1 TAB Tiotropium [place] (Spiriva Handihaler Inhaler) 1 puff DAILY INH 05/13/16 09:00 06/12/16 08:59 05/15/16 08:06 1 PUFF Triamcinolone Acetonide (Kenalog 0.5% Crm) 1 appln BID PRN EXT 05/12/16 22:45 06/11/16 22:44 05/13/16 22:28 1 APPLN Pantoprazole Sodium (Protonix Tab) 40 mg QAM PO 05/13/16 09:00 06/12/16 08:59 05/15/16 08:06 40 MG Psyllium Hydrophilic Mucilloid (Metamucil Powder) 1 pkt BID PO 05/13/16 09:00 06/12/16 08:59 05/15/16 09:07 1 PKT Albuterol Sulfate (Ventolin 0.083% 2.5MG/3ML Neb) 2.5 mg Q6R PRN INH 05/12/16 23:00 06/11/16 22:59 05/14/16 00:54 2.5 MG Heparin Sodium (Porcine) (Heparin Sq 5000 Unit/0.5ml) 5,000 unit Q8H SQ 05/13/16 06:00 06/12/16 05:59 05/15/16 13:58 5,000 UNIT Acetaminophen (Tylenol Tab) 650 mg Q4H PRN PO 05/12/16 23:00 06/11/16 22:59 Ondansetron HCl (Zofran Inj) 4 mg Q6H PRN IV 05/12/16 23:00 06/11/16 22:59 Levofloxacin (Consult) 1 ea UD PRN N/A 05/13/16 00:45 06/12/16 00:44 Morphine Sulfate (Oramorph Sr Tab) 30 mg Q8H PO 05/13/16 00:00 05/27/16 00:00 05/15/16 08:06 30 MG Escitalopram Oxalate (Lexapro Tab) 10 mg PM PO 05/13/16 21:00 06/12/16 20:59 05/14/16 19:15 10 MG Prednisone (PredniSONE TAB) 40 mg DAILY PO 05/14/16 09:00 06/13/16 08:59 05/15/16 08:07 40 MG Zolpidem Tartrate (Ambien Tab) 5 mg HS PRN PO 05/13/16 17:45 06/12/16 17:44 05/14/16 19:15 5 MG Albuterol (Proair Hfa) 2 puffs Q4H PRN INH 05/14/16 01:00 06/13/16 00:59 Levofloxacin (Levaquin Tab) 750 mg Q2D@2200 PO 05/14/16 22:00 05/17/16 23:00 05/14/16 22:00 750 MG Lorazepam (Ativan Tab) 0.5 mg BID PRN PO 05/14/16 23:45 06/13/16 23:44 05/15/16 11:18 0.5 MG
[2016-05-15] MEDS: ALBUT/IPRATROP 3MG/0.5MG NEB 3 ML VIAL INH SCH (19:20)
[2016-05-15] MEDS: ESCITALOPRAM OXALATE 10 MG TAB PO SCH (21:02)
[2016-05-15] MEDS: GUAIFENESIN 200 MG TAB PO SCH (21:02)
[2016-05-15] MEDS: ZOLPIDEM TARTRATE 5 MG TAB PO PRN (21:02)
[2016-05-16] VITALS (8 sets, daily range): BP systolic 109–157; BP diastolic 65–82; PULSE 52–79; TEMP 36.5–36.9; O2SAT 91–97
[2016-05-16] MEDS: ALBUT/IPRATROP 3MG/0.5MG NEB 3 ML VIAL INH SCH ×4 (00:11→19:52)
[2016-05-16] MEDS: MoRPHine SULFATE IR 15 MG TAB (IMMEDIATE RELEASE) PO PRN ×3 (03:40→20:12)
[2016-05-16] MEDS: GUAIFENESIN 200 MG TAB PO SCH ×3 (05:34→21:20)
[2016-05-16] MEDS: HEPARIN SOD 5000 UNIT/0.5 ML CARP SQ SCH ×3 (05:36→21:46)
[2016-05-16] MEDS: LORAZEPAM 0.5 MG TAB PO PRN ×2 (05:43→15:57)
[2016-05-16] MEDS: ATORVASTATIN 10 MG TAB PO SCH (08:50)
[2016-05-16] MEDS: MULTIVITAMIN TAB PO SCH (08:50)
[2016-05-16] MEDS: GABAPENTIN 600 MG TAB PO SCH ×2 (08:50→21:20)
[2016-05-16] MEDS: TIOTROPIUM BROMIDE 5 PUFF/90 MCG INH INH SCH (08:51)
[2016-05-16] MEDS: PANTOprazole SOD 40 MG TAB PO SCH (08:51)
--- NOTE | 2016-05-16 08:53 | Clinical Documentation Query ---
CLINICAL DOCUMENTATION QUERY 76-y/o female who presents with COPD exacerbation. ED assessment revealed some who was in moderate distress, unable to complete full sentences, moderate intercostal retractions and with inspiratory wheezing. Room air hypoxia was noted 77-89%. In your clinical opinion is this patient being managed for: ( ) Acute hypoxic respiratory failure in setting of COPD exacerbation ( ) Other explanation of clinical findings (Please Explain) ( ) Unable to determine (Please Define) ( ) Need to Discuss ( ) Not Agree The medical record reflects the following clinical findings, treatment, and risk factors. Clinical Indicators: As above. Treatment: Duonebs, O2, IV Solumedrol, IV Zosyn, IV Levofloxacin, Ativan, Risk Factors: Age, COPD, Lung Ca Hx. Please clarify and document your clinical opinion in the progress notes and discharge summary. Terms such as "probable", "suspected", "likely", "questionable", "possible", or "still to be ruled out" are acceptable. IF IN AGREEMENT, YOU MUST DOCUMENT ABOVE DIAGNOSTIC STATEMENT IN DAILY PROGRESS NOTES AND DISCHARGE SUMMARY. This document is not part of the patient's record. Thank You, Milo De Luna, RN [phone]
[2016-05-16] MEDS: PSYLLIUM 58.6% PWD PACK S\\F PO SCH ×2 (09:00→21:35)
[2016-05-16] MEDS: MoRPHine SULFATE CR 15 MG TAB (MS CONTIN) PO SCH ×3 (09:02→23:41)
--- NOTE | 2016-05-16 15:48 | Progress Note ---
Medicine Progress Note Date & Time of Visit: May 16, 2016 at 15:44. Subjective pt was seen and examined Sitting in bed watching TV with no distress Pt said that she feels that she has some breathing problem today she said that she still feels congested denies any chest pain, palpitation, dizziness Objective Last 8 Hrs Date Time Temp Pulse Resp B/P Pulse Ox O2 Delivery O2 Flow Rate FiO2 05/16/16 15:40 36.9 52 20 109/65 97 Nasal Cannula 3.0 05/16/16 14:13 74 16 95 Nasal Cannula 3.0 05/16/16 08:14 36.5 79 20 113/71 95 Nasal Cannula 3.0 05/16/16 08:05 Nasal Cannula 3.0 Physical Exam: General- No acute distress Head- atraumatic Eyes- PERRL, EOMI ENT- oropharynx clear Neck- supple, no JVD Lungs- +wheezing Heart- regular rhythm; no murmur Abdomen- normal bowel sounds, soft Extremities- no calf tenderness Neuro- alert, oriented, PERRL, EOMI; no facial palsy Skin- warm & dry Assessment & Plan COPD exacerbation - will increase steroid to BID since wheezing seems worsening today - continue levofloxacin (start 05/13/16) - Zosyn was discontinued - CXR negative for pneumonia - continue tiotropium - Continue oxygen supplement - Will get 2 step exercise once medically stable - Continue breathing treatment - Guaifenesin for the cough - Continue oxygen supplement Chronic back pain - continue outpatient morphine regimen and gabapentin DVT prophylaxis with heparin sq Disposition PT/OTeval Will discharge to rehab once medically stable Current Inpatient Medications: Current Inpatient Medications Medications (Trade) Dose Ordered Sig/Lan Route Start Time Stop Time Status Last Admin Dose Admin Atorvastatin Calcium (Lipitor Tab) 10 mg DAILY PO 05/13/16 09:00 06/12/16 08:59 05/16/16 08:50 10 MG Gabapentin (Neurontin Tab) 600 mg BID PO 05/13/16 09:00 06/12/16 08:59 05/16/16 08:50 600 MG Morphine Sulfate (MoRPHine SULFATE IR TAB) 30 mg Q4H PRN PO 05/12/16 22:45 05/26/16 22:44 05/16/16 11:20 30 MG Multivitamins (Multivitamin Tab) 1 tab DAILY PO 05/13/16 09:00 06/12/16 08:59 05/16/16 08:50 1 TAB Tiotropium [place] (Spiriva Handihaler Inhaler) 1 puff DAILY INH 05/13/16 09:00 06/12/16 08:59 05/16/16 08:51 1 PUFF Triamcinolone Acetonide (Kenalog 0.5% Crm) 1 appln BID PRN EXT 05/12/16 22:45 06/11/16 22:44 05/13/16 22:28 1 APPLN Pantoprazole Sodium (Protonix Tab) 40 mg QAM PO 05/13/16 09:00 06/12/16 08:59 05/16/16 08:51 40 MG Psyllium Hydrophilic Mucilloid (Metamucil Powder) 1 pkt BID PO 05/13/16 09:00 06/12/16 08:59 05/15/16 09:07 1 PKT Albuterol Sulfate (Ventolin 0.083% 2.5MG/3ML Neb) 2.5 mg Q6R PRN INH 05/12/16 23:00 06/11/16 22:59 05/14/16 00:54 2.5 MG Heparin Sodium (Porcine) (Heparin Sq 5000 Unit/0.5ml) 5,000 unit Q8H SQ 05/13/16 06:00 06/12/16 05:59 05/16/16 14:18 5,000 UNIT Acetaminophen (Tylenol Tab) 650 mg Q4H PRN PO 05/12/16 23:00 06/11/16 22:59 Ondansetron HCl (Zofran Inj) 4 mg Q6H PRN IV 05/12/16 23:00 06/11/16 22:59 Levofloxacin (Consult) 1 ea UD PRN N/A 05/13/16 00:45 05/19/16 23:59 Morphine Sulfate (Oramorph Sr Tab) 30 mg Q8H PO 05/13/16 00:00 05/27/16 00:00 05/16/16 09:02 30 MG Escitalopram Oxalate (Lexapro Tab) 10 mg PM PO 05/13/16 21:00 06/12/16 20:59 05/15/16 21:02 10 MG Prednisone (PredniSONE TAB) 40 mg DAILY PO 05/14/16 09:00 06/13/16 08:59 1/18/17 08:51 40 MG Zolpidem Tartrate (Ambien Tab) 5 mg HS PRN PO 05/13/16 17:45 06/12/16 17:44 05/15/16 21:02 5 MG Albuterol (Proair Hfa) 2 puffs Q4H PRN INH 05/14/16 01:00 06/13/16 00:59 Levofloxacin (Levaquin Tab) 750 mg Q2D@2200 PO 05/14/16 22:00 05/19/16 23:59 05/14/16 22:00 750 MG Lorazepam (Ativan Tab) 0.5 mg BID PRN PO 05/14/16 23:45 06/13/16 23:44 05/16/16 05:43 0.5 MG Albuterol/ Ipratropium (Duoneb) 3 ml Q6R INH 05/15/16 21:00 06/14/16 20:59 05/16/16 14:12 3 ML Guaifenesin (Organidin Nr Tab) 200 mg Q8 PO 05/15/16 22:00 06/14/16 21:59 05/16/16 14:19 200 MG
[2016-05-16] MEDS: ESCITALOPRAM OXALATE 10 MG TAB PO SCH (21:21)
[2016-05-16] MEDS: LEVOFLOXACIN 750 MG TAB PO SCH (21:36)
[2016-05-16] MEDS: ZOLPIDEM TARTRATE 5 MG TAB PO PRN (21:59)
[2016-05-17] VITALS (9 sets, daily range): BP systolic 129–142; BP diastolic 73–74; PULSE 52–84; TEMP 36.4–37; O2SAT 92–96
[2016-05-17] MEDS: ALBUT/IPRATROP 3MG/0.5MG NEB 3 ML VIAL INH SCH ×4 (01:16→19:35)
[2016-05-17] MEDS: LORAZEPAM 0.5 MG TAB PO PRN ×3 (04:24→21:18)
[2016-05-17] MEDS: GUAIFENESIN 200 MG TAB PO SCH ×3 (06:20→21:20)
[2016-05-17] MEDS: HEPARIN SOD 5000 UNIT/0.5 ML CARP SQ SCH ×3 (06:21→21:23)
[2016-05-17] MEDS: MoRPHine SULFATE IR 15 MG TAB (IMMEDIATE RELEASE) PO PRN ×3 (06:27→21:19)
[2016-05-17] MEDS: PSYLLIUM 58.6% PWD PACK S\\F PO SCH ×2 (09:05→21:00)
[2016-05-17] MEDS: GABAPENTIN 600 MG TAB PO SCH ×2 (09:06→21:20)
[2016-05-17] MEDS: TIOTROPIUM BROMIDE 5 PUFF/90 MCG INH INH SCH (09:06)
[2016-05-17] MEDS: ATORVASTATIN 10 MG TAB PO SCH (09:06)
[2016-05-17] MEDS: MULTIVITAMIN TAB PO SCH (09:06)
[2016-05-17] MEDS: PANTOprazole SOD 40 MG TAB PO SCH (09:07)
[2016-05-17] MEDS: MoRPHine SULFATE CR 15 MG TAB (MS CONTIN) PO SCH ×3 (09:17→23:44)
--- NOTE | 2016-05-17 16:50 | Progress Note ---
Medicine Progress Note Date & Time of Visit: May 17, 2016 at 16:42. Subjective Pt was seen and examined Lying in bed watching TV with no distress Pt said that she feels tired and weak today she said that her breathing is slightly better compare to yesterday she is very anxious and doesn't feel comfortable to be discharge on oxygen today she said that the ativan helps her to breath better She denies any chest pain, palpitation, dizziness Objective Last 8 Hrs Date Time Temp Pulse Resp B/P Pulse Ox O2 Delivery O2 Flow Rate FiO2 05/17/16 14:44 37.0 84 18 130/74 96 05/17/16 14:36 82 18 94 Nasal Cannula 3.0 Physical Exam: General- No acute distress Head- atraumatic Eyes- PERRL, EOMI ENT- oropharynx clear Neck- supple, no JVD Lungs- + mild wheezing Heart- regular rhythm; no murmur Abdomen- normal bowel sounds, soft Extremities- no calf tenderness Neuro- alert, oriented, PERRL, EOMI; no facial palsy Skin- warm & dry Assessment & Plan COPD exacerbation - Continue steroid 40mg BID - continue levofloxacin (start 05/13/16) - Zosyn was discontinued - CXR negative for pneumonia - continue tiotropium - Continue oxygen supplement - Will get 2 step exercise once medically stable - Continue breathing treatment - Guaifenesin for the cough - Continue oxygen supplement Chronic back pain - continue outpatient morphine regimen and gabapentin DVT prophylaxis with heparin sq Disposition PT/OTeval Will discharge to in am after the 2 step exercise Current Inpatient Medications: Current Inpatient Medications Medications (Trade) Dose Ordered Sig/Lan Route Start Time Stop Time Status Last Admin Dose Admin Atorvastatin Calcium (Lipitor Tab) 10 mg DAILY PO 05/13/16 09:00 06/12/16 08:59 05/17/16 09:06 10 MG Gabapentin (Neurontin Tab) 600 mg BID PO 05/13/16 09:00 06/12/16 08:59 05/17/16 09:06 600 MG Morphine Sulfate (MoRPHine SULFATE IR TAB) 30 mg Q4H PRN PO 05/12/16 22:45 05/26/16 22:44 05/17/16 13:59 30 MG Multivitamins (Multivitamin Tab) 1 tab DAILY PO 05/13/16 09:00 06/12/16 08:59 05/17/16 09:06 1 TAB Tiotropium [place] (Spiriva Handihaler Inhaler) 1 puff DAILY INH 05/13/16 09:00 06/12/16 08:59 05/17/16 09:06 1 PUFF Triamcinolone Acetonide (Kenalog 0.5% Crm) 1 appln BID PRN EXT 05/12/16 22:45 06/11/16 22:44 05/13/16 22:28 1 APPLN Pantoprazole Sodium (Protonix Tab) 40 mg QAM PO 05/13/16 09:00 06/12/16 08:59 05/17/16 09:07 40 MG Psyllium Hydrophilic Mucilloid (Metamucil Powder) 1 pkt BID PO 05/13/16 09:00 06/12/16 08:59 05/17/16 09:05 1 PKT Albuterol Sulfate (Ventolin 0.083% 2.5MG/3ML Neb) 2.5 mg Q6R PRN INH 05/12/16 23:00 06/11/16 22:59 05/14/16 00:54 2.5 MG Heparin Sodium (Porcine) (Heparin Sq 5000 Unit/0.5ml) 5,000 unit Q8H SQ 05/13/16 06:00 06/12/16 05:59 05/17/16 13:53 5,000 UNIT Acetaminophen (Tylenol Tab) 650 mg Q4H PRN PO 05/12/16 23:00 06/11/16 22:59 Ondansetron HCl (Zofran Inj) 4 mg Q6H PRN IV 05/12/16 23:00 06/11/16 22:59 Levofloxacin (Consult) 1 ea UD PRN N/A 05/13/16 00:45 05/19/16 23:59 Morphine Sulfate (Oramorph Sr Tab) 30 mg Q8H PO 05/13/16 00:00 05/27/16 00:00 05/17/16 16:15 30 MG Escitalopram Oxalate (Lexapro Tab) 10 mg PM PO 05/13/16 21:00 06/12/16 20:59 05/16/16 21:21 10 MG Zolpidem Tartrate (Ambien Tab) 5 mg HS PRN PO 05/13/16 17:45 06/12/16 17:44 05/16/16 21:59 5 MG Albuterol (Proair Hfa) 2 puffs Q4H PRN INH 05/14/16 01:00 06/13/16 00:59 Levofloxacin (Levaquin Tab) 750 mg Q2D@2200 PO 05/14/16 22:00 05/19/16 23:59 05/16/16 21:36 750 MG Lorazepam (Ativan Tab) 0.5 mg BID PRN PO 05/14/16 23:45 06/13/16 23:44 05/17/16 14:47 0.5 MG Albuterol/ Ipratropium (Duoneb) 3 ml Q6R INH 05/15/16 21:00 06/14/16 20:59 05/17/16 14:36 3 ML Guaifenesin (Organidin Nr Tab) 200 mg Q8 PO 05/15/16 22:00 06/14/16 21:59 05/17/16 13:50 200 MG Prednisone (PredniSONE TAB) 40 mg BID PO 05/16/16 21:00 06/15/16 20:59 05/17/16 09:05 40 MG
[2016-05-17] MEDS: ZOLPIDEM TARTRATE 5 MG TAB PO PRN (21:16)
[2016-05-17] MEDS: ESCITALOPRAM OXALATE 10 MG TAB PO SCH (21:21)
[2016-05-18] MEDS: ALBUT/IPRATROP 3MG/0.5MG NEB 3 ML VIAL INH SCH ×3 (01:07→14:13)
[2016-05-18 05:36] VITALS: PULSE 80; O2SAT 95
[2016-05-18] MEDS: MoRPHine SULFATE IR 15 MG TAB (IMMEDIATE RELEASE) PO PRN ×2 (06:12→13:35)
[2016-05-18] MEDS: GUAIFENESIN 200 MG TAB PO SCH ×2 (06:12→13:36)
[2016-05-18] MEDS: HEPARIN SOD 5000 UNIT/0.5 ML CARP SQ SCH ×2 (06:14→15:19)
[2016-05-18 07:09] VITALS: BP 113/67; PULSE 80; TEMP 36.6; O2SAT 94
[2016-05-18 08:26] LABS: CREATININE 1.2 mg/dl (0.60-1.20)
[2016-05-18] MEDS ORDERED: LORAZEPAM 0.5 MG TAB PO PRN (09:00)
[2016-05-18] MEDS: PSYLLIUM 58.6% PWD PACK S\\F PO SCH (09:00)
[2016-05-18] MEDS: MoRPHine SULFATE CR 15 MG TAB (MS CONTIN) PO SCH ×2 (09:18→15:45)
[2016-05-18] MEDS: MULTIVITAMIN TAB PO SCH (09:18)
[2016-05-18] MEDS: PANTOprazole SOD 40 MG TAB PO SCH (09:18)
[2016-05-18] MEDS: ATORVASTATIN 10 MG TAB PO SCH (09:19)
[2016-05-18] MEDS: GABAPENTIN 600 MG TAB PO SCH (09:19)
[2016-05-18 09:43] VITALS: O2SAT 92
[2016-05-18] MEDS: TIOTROPIUM BROMIDE 5 PUFF/90 MCG INH INH SCH (13:35)
[2016-05-18 13:41] VITALS: BP 113/67; PULSE 80; TEMP 36.6; O2SAT 92
[2016-05-18 14:13] VITALS: PULSE 83; O2SAT 90
--- NOTE | 2016-05-18 15:33 | Progress Note ---
Medicine Progress Note Date & Time of Visit: May 18, 2016 at 15:24. Subjective Pt was seen and examined Lying in bed comfortable with no distress Pt said that her breathing feels a little bit better she said that the ativan makes her breath better she denies any chest pain, palpitation and dizziness Pt is very anxious. Objective Last 8 Hrs Date Time Temp Pulse Resp B/P Pulse Ox O2 Delivery O2 Flow Rate FiO2 05/18/16 14:13 83 18 90 Room Air 05/18/16 13:41 36.6 80 16 92 Nasal Cannula 05/18/16 09:43 92 Nasal Cannula 3.0 Physical Exam: General- No acute distress Head- atraumatic Eyes- PERRL, EOMI ENT- oropharynx clear Neck- supple, no JVD Lungs- + mild wheezing Heart- regular rhythm; no murmur Abdomen- normal bowel sounds, soft Extremities- no calf tenderness Neuro- alert, oriented, PERRL, EOMI; no facial palsy Skin- warm & dry Laboratory Results: Last 24 Hours Test 05/18/16 06:40 Creatinine 1.20 mg/dl Est Creatinine Clear Calc Drug Dose 31.7 ml/min Estimated GFR () 50.8 Estimated GFR (Non- 43.9 Date/Time Source Procedure Growth Status 05/18/16 05:35 Stool Shiga Toxin Test Pending Received 05/18/16 05:35 Stool Stool Culture Pending Received 05/18/16 05:35 Stool C.difficile Toxin B Gene (PCR) - Final No C. difficile toxin B gene detected Complete Assessment & Plan COPD exacerbation - Continue steroid taper - Received levaquin - Zosyn was discontinued - CXR negative for pneumonia - continue tiotropium - Continue oxygen supplement - Continue breathing treatment - Guaifenesin for the cough - Continue oxygen supplement - 2-step pulse oximetry done did not show any significant desaturations. Anxiety Continue lexapro Chronic back pain - continue outpatient morphine regimen and gabapentin DVT prophylaxis with heparin sq Disposition PT/OTeval Will discharge to in am after the 2 step exercise Current Inpatient Medications: Current Inpatient Medications Medications (Trade) Dose Ordered Sig/Lan Route Start Time Stop Time Status Last Admin Dose Admin Atorvastatin Calcium (Lipitor Tab) 10 mg DAILY PO 05/13/16 09:00 06/12/16 08:59 05/18/16 09:19 10 MG Gabapentin (Neurontin Tab) 600 mg BID PO 05/13/16 09:00 06/12/16 08:59 05/18/16 09:19 600 MG Morphine Sulfate (MoRPHine SULFATE IR TAB) 30 mg Q4H PRN PO 05/12/16 22:45 05/26/16 22:44 05/18/16 13:35 30 MG Multivitamins (Multivitamin Tab) 1 tab DAILY PO 05/13/16 09:00 06/12/16 08:59 05/18/16 09:18 1 TAB Tiotropium [place] (Spiriva Handihaler Inhaler) 1 puff DAILY INH 05/13/16 09:00 06/12/16 08:59 05/18/16 13:35 1 PUFF Triamcinolone Acetonide (Kenalog 0.5% Crm) 1 appln BID PRN EXT 05/12/16 22:45 06/11/16 22:44 05/13/16 22:28 1 APPLN Pantoprazole Sodium (Protonix Tab) 40 mg QAM PO 05/13/16 09:00 06/12/16 08:59 05/18/16 09:18 40 MG Psyllium Hydrophilic Mucilloid (Metamucil Powder) 1 pkt BID PO 05/13/16 09:00 06/12/16 08:59 05/17/16 09:05 1 PKT Albuterol Sulfate (Ventolin 0.083% 2.5MG/3ML Neb) 2.5 mg Q6R PRN INH 05/12/16 23:00 06/11/16 22:59 05/14/16 00:54 2.5 MG Heparin Sodium (Porcine) (Heparin Sq 5000 Unit/0.5ml) 5,000 unit Q8H SQ 05/13/16 06:00 06/12/16 05:59 05/18/16 06:14 5,000 UNIT Acetaminophen (Tylenol Tab) 650 mg Q4H PRN PO 05/12/16 23:00 06/11/16 22:59 Ondansetron HCl (Zofran Inj) 4 mg Q6H PRN IV 05/12/16 23:00 06/11/16 22:59 Levofloxacin (Consult) 1 ea UD PRN N/A 05/13/16 00:45 05/19/16 23:59 Morphine Sulfate (Oramorph Sr Tab) 30 mg Q8H PO 05/13/16 00:00 05/27/16 00:00 05/18/16 09:18 30 MG Escitalopram Oxalate (Lexapro Tab) 10 mg PM PO 05/13/16 21:00 06/12/16 20:59 05/17/16 21:21 10 MG Zolpidem Tartrate (Ambien Tab) 5 mg HS PRN PO 05/13/16 17:45 06/12/16 17:44 05/17/16 21:16 5 MG Albuterol (Proair Hfa) 2 puffs Q4H PRN INH 05/14/16 01:00 06/13/16 00:59 Levofloxacin (Levaquin Tab) 750 mg Q2D@2200 PO 05/14/16 22:00 05/19/16 23:59 05/16/16 21:36 750 MG Albuterol/ Ipratropium (Duoneb) 3 ml Q6R INH 05/15/16 21:00 06/14/16 20:59 05/18/16 14:13 3 ML Guaifenesin (Organidin Nr Tab) 200 mg Q8 PO 05/15/16 22:00 06/14/16 21:59 05/18/16 13:36 200 MG Prednisone (PredniSONE TAB) 40 mg BID PO 05/16/16 21:00 06/15/16 20:59 05/18/16 09:19 40 MG Lorazepam (Ativan Tab) 0.5 mg TID PRN PO 05/18/16 09:00 06/17/16 08:59 05/18/16 13:35 0.5 MG
[2016-05-18] MEDS ORDERED: GUAI1TAB68 PO (15:56)
[2016-05-18] MEDS ORDERED: IPRASOL4 INH (15:56)
[2016-05-18] MEDS ORDERED: PRED10TA PO (15:56)
[2016-05-18] MEDS ORDERED: ATV5 PO (16:06)
[2016-05-18] MEDS ORDERED: MORP30TA23 PO (16:06)
--- NOTE | 2016-05-18 16:13 | Discharge Instructions ---
Discharge Instructions Admission Reason for Admission: Chronic Pain, Copd Exacerbation, Pneumonia, Discharge Discharge Diagnosis / Problem: COPD exarcerbation, Pneumonia, Chronic pain, Anxiety Discharge Goals Goal(s): Decrease discomfort, Improve function, Improve disease control Activity Recommendations Activity Limitations: resume your previous activity (as tolerated) . Instructions / Follow-Up Instructions / Follow-Up Please schedule follow up appointment with your primary care physician once discharge from rehab continue PT/OT Complete prednisone taper course continue oxygen supplement prn. Current Hospital Diet Patient's current hospital diet: Regular Diet Discharge Diet Recommended Diet: AHA Diet (Heart Healthy) Pending Studies Studies pending at discharge: no Medical Emergencies . Who to Call and When: Medical Emergencies: If at any time you feel your situation is an emergency, please call 911 immediately. . Non-Emergent Contact Non-Emergency issues call your: Primary Care Provider Call Non-Emergent contact if: you have any medication questions . . "Provider Documentation" section prepared by Hollis Jain. VTE Core Measure Inpt VTE Proph given/why not?: Unfractionated heparin SQ [place] Drug Monitoring Program Search Results: patient reviewed within database (last script for ativan was on 04/25 and last morphine script on 04/20/17)
--- NOTE | 2016-05-25 13:54 | Discharge Summary ---
Discharge Summary Admission Date: May 12, 2016 at 22:55 Discharge Date: May 18, 2016 Discharge Disposition: Personal care Principal Diagnosis: COPD exacerbation Secondary Diagnoses/Problems: COPD exarcerbation, Pneumonia, Chronic pain, Anxiety Procedures: TWO VIEW CHEST CLINICAL HISTORY: Follow-up abnormal chest x-ray. FINDINGS: PA and lateral chest radiographs are compared to study dated 05/12/2016 and correlated with chest CT dated 09/01/2009. The PA view is degraded by patient rotation. The heart is mildly enlarged and there is atherosclerotic calcification of the thoracic aorta. The pulmonary vasculature is noncongested. Advanced emphysema and chronic interstitial thickening is similar to previous. No airspace consolidation or pleural effusion is identified. There is no pneumothorax. The skeletal structures are osteopenic. Degenerative change and scoliosis is noted throughout the thoracic spine. IMPRESSION: Cardiomegaly and advanced emphysema. No acute cardiopulmonary abnormality is identified. Medication Reconciliation New Medications: Guaifenesin (Organ-I Nr) 200 Mg Tab 200 MG PO Q8 for 7 Days, #21 TAB Ipratropium-Albuterol (Duoneb) 3 Ml Nebu 3 ML INH Q6R for 30 Days Lorazepam (Lorazepam) 0.5 Mg Tab 0.5 MG PO BID PRN for Anxiety/Insomnia for 5 Days, #10 TAB Prednisone Tab (Prednisone) 10 Mg Tab 10 MG PO UD for 10 Days, TAB take 4 tabs for 3 days, then 3 tabs for 3 days,then 2 tabs for 2 days, then 1 tab for 2 days, then stop Continued Medications: Albuterol Sulfate (Proair Respiclick) 108 Mcg/Act Aer 2 PUFF INH Q4 PRN for SOB/Wheezing Atorvastatin (Lipitor) 10 Mg Tab 10 MG PO DAILY, TAB Escitalopram (Lexapro) 10 Mg Tab 10 MG PO DAILY, 0 Refills Fish Oil ([place]-3) 1 Ea Cap 1 CAP PO BID, 0 Refills Gabapentin (Neurontin *) 600 Mg Cap 600 MG PO BID, 0 Refills Glucosamine Sulfate (Glucosamine Unknown Dose) Tab 1 TABS PO BID Lorazepam (Ativan *) 0.5 Mg Tab 0.5 MG PO UD PRN for Anxiety/Insomnia, #D 0 Refills Morphine Sulfate (Ms Contin) 30 Mg Tabcr 30 MG PO Q8 for 5 Days, #15 TAB (This prescription has been renewed) Morphine Sulfate Ir (Morphine Sulfate Ir) 30 Mg Tab 1 - 2 TAB PO Q4HR PRN breakthrough pain Multivitamin (Multivitamin) Tab 1 TAB PO DAILY, 0 Refills Omeprazole (Prilosec) 20 Mg Capcr 20 MG PO DAILY, 0 Refills Tiotropium [place] (Spiriva Handihaler) 30 Puff/540 Mcg Aerp 1 CAP INH DAILY, INHALER Triamcinolone Acet (Triamcinolone Acetonide) 45 Appln/15 Gm Cr 1 APPLN TOP BID PRN for SKIN IRRITATION for 30 Days, #15 GM 1 Refill [Metamucil Tablets] () 1 PO BID Admission Information HPI (per Admitting provider): CHIEF COMPLAINT: Shortness of breath with nausea, vomiting, and diarrhea since yesterday. HISTORY OF PRESENT COMPLAINT: She is a 76-year-old female with significant past medical history including malignant neoplasm of right upper Lung, status post surgery and chemoradiation years ago, COPD, depression, esophageal reflux, chronic pain, and hypersplenism. She apparently has been complaining of nausea, vomiting and diarrhea since yesterday. She has had diarrhea 5 times since yesterday and vomited about 3 or 4 times, and she also complains to have cough with productive of scanty phlegm associated with shortness of breath. Condition got worse that she was taken to the Emergency Room for further evaluation. She does have chest pain, which is not anything separate other than the usual pain she gets and she did have chill, but no documented temperature. No problem with urine or bowel habit. She does not have any headache, any numbness or tingling in the extremities and she does not have any acute joint pain and denies to have any rash and/or any lumps in the body. In the Emergency Room, she was evaluated with chest x-ray and apparent blood test, and the x-ray came out to be positive for probable left lower lobe infiltration and she did have low electrolytes, but white count was normal; but given the history of COPD and lung cancer, she was admitted to telemetry unit for continuation of care. Physical Exam (per Admitting): PHYSICAL EXAMINATION: GENERAL: On examination in the Emergency Room, she was having minimal shortness of breath at rest. VITAL SIGNS: Temperature 37.1, pulse was 87, blood pressure 124/76, saturation 93% on 3 liters nasal cannula, and her saturation was noted to be 89% room air on arrival. HEENT: Unremarkable. NECK: Supple. No JVD and no bruit. CHEST: Bilateral wheezing with crackles left base. HEART: S1 and S2 regular. No murmur. ABDOMEN: Soft, benign, and nontender. No organomegaly. Bowel sounds present. EXTREMITIES: Negative for any edema. MUSCULOSKELETAL: Examination of the musculoskeletal system did not show any acute arthritis involving any joint. CENTRAL NERVOUS SYSTEM: She is alert, awake, and oriented x3. She is generally weak, but no focal sensory or motor deficit appreciated. Hospital Course COPD exacerbation - Continue steroid taper - Received levaquin - Zosyn was discontinued - CXR negative for pneumonia - continue tiotropium - Continue oxygen supplement - Continue breathing treatment - Guaifenesin for the cough - Continue oxygen supplement - 2-step pulse oximetry done did not show any significant desaturations. Anxiety Continue lexapro Chronic back pain - continue outpatient morphine regimen and gabapentin DVT prophylaxis with heparin sq Disposition PT/OTeval Will discharge to in am after the 2 step exercise Total time spent on discharge = 35 minutes This includes examination of the patient, discharge planning, medication reconciliation, and communication with other providers. Discharge Instructions Discharge Instructions Admission Reason for Admission: Chronic Pain, Copd Exacerbation, Pneumonia, Discharge Discharge Diagnosis / Problem: COPD exarcerbation, Pneumonia, Chronic pain, Anxiety Discharge Goals Goal(s): Decrease discomfort, Improve function, Improve disease control Activity Recommendations Activity Limitations: resume your previous activity (as tolerated) . Instructions / Follow-Up Instructions / Follow-Up Please schedule follow up appointment with your primary care physician once discharge from rehab continue PT/OT Complete prednisone taper course continue oxygen supplement prn. Current Hospital Diet Patient's current hospital diet: Regular Diet Discharge Diet Recommended Diet: AHA Diet (Heart Healthy) Pending Studies Studies pending at discharge: no Medical Emergencies . Who to Call and When: Medical Emergencies: If at any time you feel your situation is an emergency, please call 911 immediately. . Non-Emergent Contact Non-Emergency issues call your: Primary Care Provider Call Non-Emergent contact if: you have any medication questions . . "Provider Documentation" section prepared by Hollis Jain. VTE Core Measure Inpt VTE Proph given/why not?: Unfractionated heparin SQ [place] Drug Monitoring Program Search Results: patient reviewed within database (last script for ativan was on 04/25 and last morphine script on 04/20/17) Additional Copies To Thiago Clemons Timothy F., MD
[2016-06-04] MEDS ORDERED: GLCSUNK PO (10:51)
[2016-06-04] MEDS ORDERED: MULT-506 PO (10:51)
[2016-06-04] MEDS ORDERED: OMEG10007 PO (10:51)
[2016-06-04] MEDS ORDERED: ESCI10TA17 PO (10:51)
[2016-06-04] MEDS ORDERED: ATV5 PO (10:51)
[2016-06-04] MEDS ORDERED: NRN600 PO (10:51)
[2016-06-19] MEDS ORDERED: IPRASOL4 INH (18:23)
[2016-06-21] MEDS ORDERED: ESCI10TA17 PO (10:20)
[2016-06-21] MEDS ORDERED: MORP30TA23 PO (10:20)
[2016-06-21] MEDS ORDERED: MGNO400 PO (10:20)
[2016-06-21] MEDS ORDERED: LSN25 PO (10:20)
[2016-12-28] MEDS ORDERED: OXGN (14:54)
[2016-12-28] MEDS ORDERED: LXP/10 PO (14:54)
[2016-12-28] MEDS ORDERED: MRPSR30 PO (14:54)
[2016-12-28] MEDS ORDERED: MORP30TA PO (14:54)
[2017-01-25] MEDS ORDERED: GLUCOSAMINE SULFATE PO (14:20)
[2017-01-25] MEDS ORDERED: GABA600T PO (14:20)
== END 2016-05-18 16:53 | DRG 190 ==
LOC: ENRESERVTM → ENRESERVDT → EDBD 20:30 → C.EDB 20:32 → C.MS2W 22:55
PROVIDERS: ADMIT Internal Medicine; ATTEND Internal Medicine
DX: J44.1 Chronic obstructive pulmonary disease with (acute) exacerbation (principal); J18.9 Pneumonia, unspecified organism; G89.29 Other chronic pain; M54.9 Dorsalgia, unspecified; N18.3 Chronic kidney disease, stage 3 (moderate); K21.9 Gastro-esophageal reflux disease without esophagitis; I12.9 Hypertensive chronic kidney disease with stage 1 through stage 4 chronic kidney disease, or unspecified chronic kidney disease; M81.0 Age-related osteoporosis without current pathological fracture; R11.2 Nausea with vomiting, unspecified; R19.7 Diarrhea, unspecified; F41.9 Anxiety disorder, unspecified; F32.9 Major depressive disorder, single episode, unspecified; M71.9 Bursopathy, unspecified; M60.9 Myositis, unspecified; D73.1 Hypersplenism; F17.210 Nicotine dependence, cigarettes, uncomplicated; R09.02 Hypoxemia; Z92.21 Personal history of antineoplastic chemotherapy; Z85.118 Personal history of other malignant neoplasm of bronchus and lung; Z92.3 Personal history of irradiation; Z79.899 Other long term (current) drug therapy; Z79.891 Long term (current) use of opiate analgesic; M54.42 Lumbago with sciatica, left side; M54.41 Lumbago with sciatica, right side; M47.816 Spondylosis without myelopathy or radiculopathy, lumbar region

== ENCOUNTER 2016-06-04 11:14 | Emergency (ER) | payer BC, OTHER ==
[~2016-06-04] VITALS: Ht 157.5 cm; Wt 52.7 kg
[~2016-06-04 11:14] MED LIST changes: +ALBU18002 INH; +ATV5 PO; -CLIMARA; +ESCI10TA17 PO; -EXCEDRIN ES PO; +GLCSUNK PO; +GUAI1TAB68 PO; -IMD/2 PO; +IPRASOL4 INH; +MORP30TA23 PO; +MULT-506 PO; +NRN600 PO; +OMEG10007 PO; -OSCAL; +TRMCR515 TOP; -[UNRECOGNIZED DRUG - CODE] PO
[2016-06-04 11:22] VITALS: Ht 157.5 cm; Wt 52.7 kg
[2016-06-04] MEDS ORDERED: PSYLCAP5 PO (11:38)
[2016-06-04] MEDS ORDERED: UMEC1AER INH (11:38)
[2016-06-04] MEDS ORDERED: XYLOCAINE 1%/SOD BICARB 20 ML VIAL INFIL ONE (12:15)
[2016-06-04] MEDS ORDERED: DIPHTHERIA/TETANUS/PERTUSSIS 0.5 ML SYR/VIAL IM. ONE (12:15)
[2016-06-04 12:41] LABS: BASO % 0.7 %; BASO ABS # 0.07 K/uL (0-0.2); COMPLETE YES; EOS % 4.5 %; HEMATOCRIT 37.6 % (37-47); IG% 0.3 %; LYMPH % 23.2 %; LYMPH ABS # 2.45 K/uL (1.2-3.4); MEAN CELL VOLUME 90.6 fL (80-100); MEAN CORPUSCULAR HEMOGLOBIN 30.8 pg (25-34); MEAN PLATELET VOLUME 10.2 fL (7.4-10.4); MONO % 8.6 %; NEUT % 62.7 %; PLATELET COUNT 334 K/uL (130-400); RED BLOOD COUNT 4.15 M/uL (4.2-5.4); WHITE BLOOD COUNT 10.56 K/uL (4.8-10.8)
[2016-06-04 12:45] LABS: PARTIAL THROMBOPLASTIN RATIO 1.4; PROTHROMBIN TIME (PATIENT) 10.2 SECONDS (9.0-12.0)
[2016-06-04 13:01] LABS: BLOOD UREA NITROGEN 18 mg/dl (7-18); BUN/CREATININE RATIO 14.6 (10-20); CARBON DIOXIDE 24 mmol/L (21-32); CHLORIDE 104 mmol/L (98-107); GLUCOSE 110 mg/dl (70-99); POTASSIUM 4.4 mmol/L (3.5-5.1); SODIUM 137 mmol/L (136-145)
--- NOTE | 2016-06-04 13:06 | DIAGNOSTIC IMAGING REPORT ---
CT SCAN OF THE BRAIN WITHOUT IV CONTRAST CLINICAL HISTORY: Head injury. Fall. COMPARISON STUDY: CT of the brain dated 10/09/2010. TECHNIQUE: Unenhanced axial CT scan of the brain is performed from the vertex to the skull base. CT DOSE: 614.27 mGy.cm FINDINGS: Brain parenchyma: There are age-related involutional changes noting mild subcortical and periventricular microangiopathic change. There is no hemorrhage, mass effect, or evidence of acute territorial ischemia by CT criteria. [place]-white matter is preserved. No extra-axial fluid collection is seen. Ventricles, sulci, cisterns: Prominent secondary to involutional change. Intracranial vasculature: There is atherosclerotic calcification of the cavernous carotid arteries. Calvarium: The skeletal structures are osteopenic. There is no depressed calvarial fracture. Soft tissues: There is posterior scalp contusion/laceration. Sinuses and mastoids: The visualized paranasal sinuses are clear. The mastoid air cells are well pneumatized. Orbits: The bony orbits are grossly intact. IMPRESSION: 1. There is no hemorrhage, mass effect, or evidence of acute territorial ischemia by CT criteria. 2. Posterior scalp injury. There is no depressed calvarial fracture. Electronically signed by: Lenny Villa M.D. 06/04/2016 1:04 PM Dictated Date/Time: 06/04/2016 1:02 PM
[2016-06-04] MEDS ORDERED: SODIUM CHLORIDE 0.9% 250ML 250 ML IV STA (13:18)
[2016-06-04 14:06] VITALS: TEMP 36.5
[2016-06-04 15:14] VITALS: BP 102/74; PULSE 81; O2SAT 94
--- NOTE | 2016-06-04 19:05 | EMERGENCY ROOM VISIT NOTE ---
History Report prepared by Dora: Ashli Solano Under the Supervision of: Dr. Everton Sue M.D. First contact with patient: 11:58 Chief Complaint: HEAD INJURY (MINOR) Stated Complaint: HEAD INJURY FROM FALL-SENT BY DR ORTEGA History of Present Illness The patient is a 76 year old female who presents to the Emergency Room with complaints of a head injury that occurred this morning around 6AM s/p a mechanical fall. The patient was sitting on a potty chair this morning and when she got up her robe was caught on something, causing her to fall. She was not lightheaded or weak when she fell. She hit her head against the jacuzzi and notes that she had a significant amount of bleeding from her scalp. Denies loss of consciousness or any other injuries from the fall. Currently, she notes that she has some pain to the area where she hit her head, but she denies headache. She notes that she feels a little off upon arrival. The patient was due for her tetanus shot in 2004. She is not on any blood thinners. Denies lightheadedness, neck pain, chest pain, shortness of breath, nausea, vomiting, unilateral numbness/weakness, urinary symptoms, or other complaints. She states that her blood pressure normally runs low at about 100/80. Source of History: patient Onset: this morning around 6AM Position: head Timing: constant Associated Symptoms: No LOC, No SOB, No chest pain, No headache, No nausea, No neck pain, No urinary symptoms, No vomiting Note: Other symptoms: feels a little off Review of Systems See HPI for pertinent positives & negatives. A total of 10 systems reviewed and were otherwise negative. Past Medical & Surgical Medical Problems: (1) Adenocarcinoma of lung (2) Chronic pain (3) Chronic pain syndrome (4) COPD exacerbation (5) Disorder of electrolytes (6) Gastroesophageal reflux disease Family History Cancer Lung disease Social History Smoking Status: Current Some Day Smoker Alcohol Use: none Drug Use: none Marital Status: single Current/Historical Medications Scheduled Atorvastatin (Lipitor), 10 MG PO DAILY Escitalopram (Lexapro), 10 MG PO DAILY Fish Oil ([place]-3), 1 CAP PO BID Gabapentin (Neurontin *), 600 MG PO BID Glucosamine Sulfate (Glucosamine Unknown Dose), 1 TABS PO BID Ipratropium-Albuterol (Duoneb), 3 ML INH Q6R Morphine Sulfate (Ms Contin), 30 MG PO Q8 Multivitamin (Multivitamin), 1 TAB PO DAILY Omeprazole (Prilosec), 20 MG PO DAILY Psyllium W/ Calcium (Metamucil Plus Calcium), 1 CAP PO DAILY Tiotropium [place] (Spiriva Handihaler), 1 CAP INH DAILY Umeclidinium-Vilanterol (Anoro Ellipta 62.5-25 Mcg/INH), 1 PUFF INH DAILY Scheduled PRN Lorazepam (Ativan *), 0.5 MG PO UD PRN for Anxiety/Insomnia Allergies Coded Allergies: Codeine (Verified Allergy, Unknown, 06/04/16) Penicillins (Unverified Allergy, Unknown, hives, 06/04/16) Procaine (Verified Allergy, Unknown, SWELLING, 06/04/16) Physical Exam Vital Signs Date Time Temp Pulse Resp B/P Pulse Ox O2 Delivery O2 Flow Rate FiO2 06/04/16 15:14 81 16 102/74 94 Room Air 06/04/16 14:06 36.5 74 16 136/62 92 Room Air 06/04/16 12:46 77 06/04/16 12:22 78 18 99/55 96 Room Air 06/04/16 11:22 36.9 74 18 89/60 97 Room Air Physical Exam Constitutional: Vital signs reviewed. Repeat blood pressure is 99/55. HEAD: 13.5 cm scalp laceration on the occiput. Eyes: Pupils are equal round reactive to light. Conjunctiva are noninjected. ENT: Pharynx is clear without erythema or exudate. Mucous membranes are moist. Neck supple without meningeal signs. No midline tenderness to the C-spine. Respiratory: Clear to auscultation bilaterally. Breath sounds are equal bilaterally. Cardiovascular: Regular rate and rhythm. No rubs or gallops. GI: Soft, nondistended and nontender. Bowel sounds are present. Musculoskeletal: No peripheral edema. No lower extremity tenderness. No signs of trauma to the extremities. Integumentary: No cyanosis. Neurological: The patient is awake and alert. Cranial nerves II-XII are intact. Motor is 5 out of 5 all extremities. Sensation is intact to light touch all extremities. Normal speech. No pronator drift. Psychiatric: Normal affect. Medical Decision & Procedures ER Provider Diagnostic Interpretation: CT results as stated below per my review and radiologist interpretation. CT SCAN OF THE BRAIN WITHOUT IV CONTRAST CLINICAL HISTORY: Head injury. Fall. COMPARISON STUDY: CT of the brain dated 10/09/2010. TECHNIQUE: Unenhanced axial CT scan of the brain is performed from the vertex to the skull base. CT DOSE: 614.27 mGy.cm FINDINGS: Brain parenchyma: There are age-related involutional changes noting mild subcortical and periventricular microangiopathic change. There is no hemorrhage, mass effect, or evidence of acute territorial ischemia by CT criteria. [place]-white matter is preserved. No extra-axial fluid collection is seen. Ventricles, sulci, cisterns: Prominent secondary to involutional change. Intracranial vasculature: There is atherosclerotic calcification of the cavernous carotid arteries. Calvarium: The skeletal structures are osteopenic. There is no depressed calvarial fracture. Soft tissues: There is posterior scalp contusion/laceration. Sinuses and mastoids: The visualized paranasal sinuses are clear. The mastoid air cells are well pneumatized. Orbits: The bony orbits are grossly intact. IMPRESSION: 1. There is no hemorrhage, mass effect, or evidence of acute territorial ischemia by CT criteria. 2. Posterior scalp injury. There is no depressed calvarial fracture. Electronically signed by: Lenny Villa M.D. 06/04/2016 1:04 PM Dictated Date/Time: 06/04/2016 1:02 PM Laboratory Results 06/04/16 12:20 Red Blood Count 4.15, Mean Corpuscular Volume 90.6, Mean Corpuscular Hemoglobin 30.8, Mean Corpuscular Hemoglobin Concent 34.0, Mean Platelet Volume 10.2, Neutrophils (%) (Auto) 62.7, Lymphocytes (%) (Auto) 23.2, Monocytes (%) (Auto) 8.6, Eosinophils (%) (Auto) 4.5, Basophils (%) (Auto) 0.7, Neutrophils # (Auto) 6.63, Lymphocytes # (Auto) 2.45, Monocytes # (Auto) 0.91, Eosinophils # (Auto) 0.47, Basophils # (Auto) 0.07 06/04/16 12:20 Test 06/04/16 12:20 White Blood Count 10.56 K/uL (4.8-10.8) Red Blood Count 4.15 M/uL (4.2-5.4) Hemoglobin 12.8 g/dL (12.0-16.0) Hematocrit 37.6 % (37-47) Mean Corpuscular Volume 90.6 fL (80-100) Mean Corpuscular Hemoglobin 30.8 pg (25-34) Mean Corpuscular Hemoglobin Concent 34.0 g/dl (32-36) Platelet Count 334 K/uL (130-400) Mean Platelet Volume 10.2 fL (7.4-10.4) Neutrophils (%) (Auto) 62.7 % Lymphocytes (%) (Auto) 23.2 % Monocytes (%) (Auto) 8.6 % Eosinophils (%) (Auto) 4.5 % Basophils (%) (Auto) 0.7 % Neutrophils # (Auto) 6.63 K/uL (1.4-6.5) Lymphocytes # (Auto) 2.45 K/uL (1.2-3.4) Monocytes # (Auto) 0.91 K/uL (0.11-0.59) Eosinophils # (Auto) 0.47 K/uL (0-0.5) Basophils # (Auto) 0.07 K/uL (0-0.2) RDW Standard Deviation 47.6 fL (36.4-46.3) RDW Coefficient of Variation 14.4 % (11.5-14.5) Immature Granulocyte % (Auto) 0.3 % Immature Granulocyte # (Auto) 0.03 K/uL (0.00-0.02) Prothrombin Time 10.2 SECONDS (9.0-12.0) Prothromb Time International Ratio 1.0 (0.9-1.1) Activated Partial Thromboplast Time 35.9 SECONDS (21.0-31.0) Partial Thromboplastin Ratio 1.4 Anion Gap 9.0 mmol/L (3-11) Est Creatinine Clear Calc Drug Dose 31.6 ml/min Estimated GFR () 50.8 Estimated GFR (Non- 43.9 BUN/Creatinine Ratio 14.6 (10-20) Calcium Level 9.0 mg/dl (8.5-10.1) Troponin I < 0.015 ng/ml (0-0.045) Laboratory results as reviewed by me. Medications Administered Medications (Trade) Dose Ordered Sig/Lan Route Start Time Stop Time Status Last Admin Dose Admin Diphtheria/ Pertussis/Tetanus Vacc 0.5 ml 0.5 ml ONCE ONCE IM. 06/04/16 12:15 06/04/16 12:16 DC 06/04/16 12:36 0.5 ML Sodium Chloride (Nss 250ml) 250 ml @ 999 mls/hr Q16M STAT IV 06/04/16 13:18 06/04/16 13:33 DC 06/04/16 13:29 999 MLS/HR ECG Indication: other (hypotension) Rate (beats per minute): 77 Findings: no ectopy Comparison ECG Date: 05/12/16 Change: no significant change ED Course 1201: The patient was evaluated in room B6. A complete history and physical exam was performed. 1215: Ordered Adacel Inj 0.5 ml IM, Lidocaine HCl 20 ml INFIL. 1221: I discussed the risks, benefits, and potential complications of the DTap vaccination with the patient and her daughter. The patient agreed to the vaccination. 1318: Ordered NSS 250 ml @ 999 mls/hr IV. 1336: I reassessed the patient and talked to her and her daughter about test results. Her laceration was being sewn up by a physician design assistant. 1417: I reassessed the patient. Her blood pressure was 136/62 and her pulse ox was 94. She says that she felt numbness throughout during the laceration repair. She will be given food and we will see how she feels. 1505: I reassessed the patient. She had lunch and feels much better. I reviewed discharge instructions with her. She will be discharged home. Medical Decision This is a 76-year-old female who presents with a mechanical fall and head injury. She was initially hypotensive on presentation. Differential diagnosis includes contusion, concussion, skull fracture, intracranial hemorrhage, anemia , hypovolemia. I did perform a limited focused review of portions of the patient's old chart on the electronic medical record. She was admitted May 12 for a COPD exacerbation. She was also diagnosed with pneumonia, chronic pain, and anxiety. I did evaluate the patient as noted above. The patient is presenting status post mechanical fall with a head injury and scalp laceration. She states that she feels somewhat off but cannot really describe exactly how. She has no specific complaints other than pain to her head where she has laceration. Her blood pressure was initially low on presentation but she states that she normally runs somewhat low and she does not feel weak or lightheaded. Recheck of her blood pressure showed improvement without any intervention. She did state that she lost a significant amount of blood from her scalp when she fell. IV access was established. The patient was placed on a continuous time study engineer. I did order and personally review the patient's 12-lead EKG as described above. I did order and review the patient's blood work as noted in the electronic medical record. She is not anemic. Her white blood cell count isn't significantly elevated. Troponin is negative. I did order a CT of the head. I did review the images myself as well as the radiology report as described above. There is no evidence of intracranial hemorrhage. No skull fracture. The patient's laceration was repaired by CHINTAN Kunz. I did reassess the patient. She was given lunch and after eating it she stated that she felt much better. Her blood pressure is 136/62. She has no complaints at this time. She was given head injury precautions and discharged in good condition. Impression Primary Impression: Acute head injury Additional Impressions: Scalp laceration Fall Transient hypotension Scribe Attestation The scribe's documentation has been prepared under my direct and personally reviewed by me in its entirety. I confirm that the note above accurately reflects all work, treatment, procedures, and medical decision making performed by me. Departure Information Dispostion Home / Self-Care Referrals Ron Ortega MD (PCP) Forms HOME CARE DOCUMENTATION FORM, IMPORTANT VISIT INFORMATION Patient Instructions ED Head Injury Closed, ED Laceration Scalp Stitch Or Stap, My [facility] Additional Instructions You have been examined and treated today on an emergency basis only. This is not a substitute for, or an effort to provide, complete comprehensive medical care. It is impossible to recognize and treat all injuries or illnesses in a single emergency department visit. It is therefore important that you follow up closely with your physician. Call as soon as possible for an appointment. Return for worsening symptoms or if you develop fever, numbness or weakness on one side of your body, difficulties with your speech or walking, or any other concerning symptoms. Your lottie need to be removed in 10 days. Problem Qualifiers Primary Impression: Acute head injury Encounter type: initial encounter Qualified Codes: S09.90XA - Unspecified injury of head, initial encounter Additional Impressions: Scalp laceration Encounter type: initial encounter Qualified Codes: S01.01XA - Laceration without foreign body of scalp, initial encounter Fall Encounter type: initial encounter Qualified Codes: W19.XXXA - Unspecified fall, initial encounter
[2016-06-04] MEDS ORDERED: PRLSR20 PO (19:08)
--- NOTE | 2016-06-04 20:19 | EMERGENCY ROOM VISIT NOTE ---
ED Visit Note Emergency Department Procedure Note I was asked to see Ms. Concepción Jacob by Dr. Everton Sue, emergency medicine, for repair of her scalp laceration following a fall. Please see Dr. Sue's notes and orders for full information about her ED visit. Wound Repair: Complexity: Intermediate. Reason: Large multilayer closure. Description: 13.5 cm full-thickness scalp laceration with a flap. Verbal consent was obtained after the risks and benefits were explained. The skin was prepped with betadine and a sterile field set. Wound edges of the wound was anesthetized with 16.8 ml buffered 1% lidocaine. The wound was explored for foreign bodies and none found. Copious irrigation was performed using sterile saline. With direct pressure the bleeding subsided. Debridement was not performed. Patient's subcuticular layer was closed with 5-0 Vicryl with 4 simple interrupted sutures. Patient's cutaneous layer was closed with 14 lottie. Hemostasis and excellent approximation was achieved. Antibacterial ointment and a sterile dressing applied. No complications and the patient tolerated the procedure well.
[2016-06-04] MEDS ORDERED: ATOR10TA88 PO (21:01)
[2016-06-04] MEDS ORDERED: SPRIN/30 INH (21:01)
[2016-06-19] MEDS ORDERED: IPRASOL4 INH (18:23)
[2016-06-21] MEDS ORDERED: MORP30TA23 PO (10:20)
[2016-06-21] MEDS ORDERED: MGNO400 PO (10:20)
[2016-06-21] MEDS ORDERED: ESCI10TA17 PO (10:20)
[2016-06-21] MEDS ORDERED: LSN25 PO (10:20)
[2016-12-28] MEDS ORDERED: OXGN (14:54)
[2016-12-28] MEDS ORDERED: MRPSR30 PO (14:54)
[2016-12-28] MEDS ORDERED: MORP30TA PO (14:54)
[2016-12-28] MEDS ORDERED: LXP/10 PO (14:54)
[2017-01-25] MEDS ORDERED: GABA600T PO (14:20)
[2017-01-25] MEDS ORDERED: GLUCOSAMINE SULFATE PO (14:20)
== END 2016-06-04 15:23 | disposition home or self-care (01) ==
LOC: C.EDB 11:16
DX: S01.01XA Laceration without foreign body of scalp, initial encounter (principal); W18.12XA Fall from or off toilet with subsequent striking against object, initial encounter; Z23 Encounter for immunization; Z85.118 Personal history of other malignant neoplasm of bronchus and lung; G89.29 Other chronic pain; J44.9 Chronic obstructive pulmonary disease, unspecified; K21.9 Gastro-esophageal reflux disease without esophagitis; F17.210 Nicotine dependence, cigarettes, uncomplicated; Z79.899 Other long term (current) drug therapy

== ENCOUNTER 2016-06-17 19:39 | Inpatient (IN) | payer BC, OTHER ==
[~2016-06-17] VITALS: Ht 157.5 cm; Wt 47.4 kg
[~2016-06-17 19:39] MED LIST changes: -ALBU18002 INH; +ATOR10TA88 PO; -GUAI1TAB68 PO; -METAMUCIL TABLETS PO; -MORP30TA PO; +PRLSR20 PO; +PSYLCAP5 PO; +SPRIN/30 INH; -TRMCR515 TOP; +UMEC1AER INH
--- NOTE | 2016-06-17 20:45 | DIAGNOSTIC IMAGING REPORT ---
HEAD CT NONCONTRAST CT DOSE: 1842.80 mGy.cm HISTORY: Trauma altered mental status fall TECHNIQUE: Multiaxial CT images of the head were performed without the use of intravenous contrast. Comparison: 06/04/2016 Findings: The paranasal sinuses and mastoid air cells are clear. The calvarium and skull base are intact. The ventricles and sulci are within normal limits. There is no mass, hematoma, midline shift, or acute infarct. No change in the prior study Impression: Age-related change. No acute process. Electronically signed by: Jian Lo M.D. 06/17/2016 8:44 PM Dictated Date/Time: 06/17/2016 8:43 PM
--- NOTE | 2016-06-17 20:48 | DIAGNOSTIC IMAGING REPORT ---
CHEST ONE VIEW PORTABLE CLINICAL HISTORY: CHEST PAIN dyspnea COMPARISON STUDY: 05/13/2016 FINDINGS: Mild emphysematous change. Mild bibasilar chronic interstitial change. No focal infiltrate. IMPRESSION: Mild cardia megaly. Emphysematous change. No acute process. Electronically signed by: Jian Lo M.D. 06/17/2016 8:47 PM Dictated Date/Time: 06/17/2016 8:46 PM
[2016-06-17 20:56] LABS: BASO % 0.3 %; BASO ABS # 0.05 K/uL (0-0.2); COMPLETE YES; EOS % 0.3 %; HEMATOCRIT 50.6 % (37-47); IG% 1.4 %; LYMPH % 30.2 %; LYMPH ABS # 4.42 K/uL (1.2-3.4); MEAN CELL VOLUME 84.6 fL (80-100); MEAN CORPUSCULAR HEMOGLOBIN 30.9 pg (25-34); MEAN CORPUSCULAR HGB CONC 36.6 g/dl (32-36); MEAN PLATELET VOLUME 9.5 fL (7.4-10.4); MONO % 4.2 %; NEUT % 63.6 %; PLATELET COUNT 774 K/uL (130-400); RED BLOOD COUNT 5.98 M/uL (4.2-5.4); WHITE BLOOD COUNT 14.64 K/uL (4.8-10.8)
[2016-06-17] MEDS ORDERED: CALC0.2510 PO (21:03)
[2016-06-17 21:05] LABS: PARTIAL THROMBOPLASTIN RATIO 1.6; PROTHROMBIN TIME (PATIENT) 10.4 SECONDS (9.0-12.0)
[2016-06-17 21:13] LABS: BUN/CREATININE RATIO 13.8 (10-20); CALCIUM 10.8 mg/dl (8.5-10.1); CREATININE 1.2 mg/dl (0.60-1.20); POTASSIUM 3.7 mmol/L (3.5-5.1)
[2016-06-17 21:17] LABS: CKMB/CK RATIO 2.7 (0-3.0)
[2016-06-17 21:26] LABS: URINE APPEARANCE CLEAR (CLEAR); URINE BILIRUBIN NEG (NEG); URINE COLOR YELLOW; URINE EPITHELIAL CELL AUTO 0-5 /lpf (0-5); URINE NITRITE NEG (NEG); URINE PH 6.5 (4.5-7.5); URINE SPECIFIC GRAVITY 1.013 (1.000-1.030); UROBILINOGEN NEG (NEG)
[2016-06-17 21:27] LABS: MANUAL MICROSCOPIC REQUIRED? NO; REVIEW REQ? NO
[2016-06-17] MEDS ORDERED: LORAZEPAM 2 MG/ML 1 ML VIAL IV STA (21:45)
[2016-06-17 21:47] LABS: ACETAMINOPHEN < 2 ug/ml (10-30)
--- NOTE | 2016-06-17 21:49 | EMERGENCY ROOM VISIT NOTE ---
History Report prepared by Dora: Alba Moffett Under the Supervision of: Dr. Dontae Romero M.D. First contact with patient: 20:02 Chief Complaint: ALTERED MENTAL STATUS Stated Complaint: CONFUSED/LETHARGIC History of Present Illness The patient is a 76 year old female who presents to the Emergency Room with complaints of persistent altered mental status that occurred prior to arrival. Per the patient's daughter, the patient fell 13 days ago and was evaluated in the emergency department for the incident. She notes that the patient had a normal CT scan and 15 lottie placed in her head. The patient's daughter states that five weeks ago the patient was evaluated in the hospital for bronchitis and notes that she was then placed in a penitentiary for a short amount of time. She states that the patient now has nursing staff daily. 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 She states that the patient is in remission now. The patient's daughter notes that the patient is currently on Neurontin and was started on prednisone for hives that developed on . She denies the patient having any other changes in medications. The patient states that she took her medications today. The patient's family notes that the patient has complained of nausea and a headache, and notes that the patient vomited yesterday. The patient's daughter notes a decrease in the patient's appetite and fluid intake. She denies any recent illness other than the bronchitis. The patient's daughter denies the patient being on any blood thinners. She notes that the patient has had urinary incontinence. Source of History: patient, family, friend Onset: prior to arrival Position: other (global) Quality: other (altered mental status) Timing: other (persistent) Associated Symptoms: + headache, + nausea, + vomiting Note: Associated Symptoms: urinary incontinence, decrease in appetite, decrease in fluid intake. Review of Systems See HPI for pertinent positives & negatives. A total of 10 systems reviewed and were otherwise negative. Past Medical & Surgical Medical Problems: (1) Adenocarcinoma of lung (2) Chronic pain (3) Chronic pain syndrome (4) COPD exacerbation (5) Disorder of electrolytes (6) Gastroesophageal reflux disease Old medical records were reviewed. Nurse's notes were reviewed and I agree with. Family History Cancer Lung disease Social History Smoking Status: Unknown if Ever Smoked Alcohol Use: none Drug Use: none Marital Status: single Current/Historical Medications Scheduled Atorvastatin (Lipitor), 10 MG PO DAILY Calcitriol (Rocaltrol Cap), 0.25 MCG PO 3XWK Escitalopram (Lexapro), 10 MG PO DAILY Fish Oil ([place]-3), 1 CAP PO BID Gabapentin (Neurontin *), 600 MG PO BID Glucosamine Sulfate (Glucosamine Unknown Dose), 1 TABS PO BID Ipratropium-Albuterol (Duoneb), 3 ML INH Q6R Morphine Sulfate (Ms Contin), 30 MG PO Q8 Multivitamin (Multivitamin), 1 TAB PO DAILY Omeprazole (Prilosec), 20 MG PO DAILY Umeclidinium-Vilanterol (Anoro Ellipta 62.5-25 Mcg/INH), 1 PUFF INH DAILY Scheduled PRN Lorazepam (Ativan *), 0.5 MG PO UD PRN for Anxiety/Insomnia Allergies Coded Allergies: Codeine (Verified Allergy, Unknown, 06/17/16) Penicillins (Unverified Allergy, Unknown, hives, 06/17/16) Procaine (Verified Allergy, Unknown, SWELLING, 06/17/16) Physical Exam Vital Signs Date Time Temp Pulse Resp B/P Pulse Ox O2 Delivery O2 Flow Rate FiO2 06/17/16 21:11 105 16 106/92 100 06/17/16 20:01 99 06/17/16 20:00 37.3 108 20 151/99 95 Room Air Physical Exam General: Sleepy but arousable older female, in no acute distress, breathing comfortably on room air. Normal speech. Answers questions, but inappropriately. No aphasia, making purposeful movements. HEENT: Normal cephalic atraumatic. Pupils are equal round and reactive to light. Extraocular movements are intact. Oropharynx is pink with moist mucous membranes. No swelling of the mouth lips or tongue. Neck: Supple with a midline trachea. No meningeal signs or stiffness, no JVD or bruits. No Stridor. Chest: Clear to auscultation bilaterally. No wheezes or rhonchi. No increased work of breathing. Heart: regular rate and rhythm. Abdomen: Soft nontender, nondistended without rebound guarding or rigidity. Extremities: No cyanosis clubbing or edema. No calf tenderness or assymetry Spine/Back. Non tender to palpation. No CVA tenderness Skin: Good turgor without rashes. Neurologic exam: Cranial nerves two through 12 are intact. Motor and sensation are intact and symmetrical throughout. Medical Decision & Procedures ER Provider Diagnostic Interpretation: X ray results as stated below per my interpretation and radiologist interpretation. Other radiology results as stated below per my review and radiologist interpretation: HEAD CT NONCONTRAST CT DOSE: 1842.80 mGy.cm HISTORY: Trauma altered mental status fall TECHNIQUE: Multiaxial CT images of the head were performed without the use of intravenous contrast. Comparison: 06/04/2016 Findings: The paranasal sinuses and mastoid air cells are clear. The calvarium and skull base are intact. The ventricles and sulci are within normal limits. There is no mass, hematoma, midline shift, or acute infarct. No change in the prior study Impression: Age-related change. No acute process. Electronically signed by: Jian Lo M.D. 06/17/2016 8:44 PM Dictated Date/Time: 06/17/2016 8:43 PM CHEST ONE VIEW PORTABLE CLINICAL HISTORY: CHEST PAIN dyspnea COMPARISON STUDY: 05/13/2016 FINDINGS: Mild emphysematous change. Mild bibasilar chronic interstitial change. No focal infiltrate. IMPRESSION: Mild cardia megaly. Emphysematous change. No acute process. Electronically signed by: Jian Lo M.D. 06/17/2016 8:47 PM Dictated Date/Time: 06/17/2016 8:46 PM Laboratory Results 06/17/16 20:41 Red Blood Count 5.98, Mean Corpuscular Volume 84.6, Mean Corpuscular Hemoglobin 30.9, Mean Corpuscular Hemoglobin Concent 36.6, Mean Platelet Volume 9.5, Neutrophils (%) (Auto) 63.6, Lymphocytes (%) (Auto) 30.2, Monocytes (%) (Auto) 4.2, Eosinophils (%) (Auto) 0.3, Basophils (%) (Auto) 0.3, Neutrophils # (Auto) 9.31, Lymphocytes # (Auto) 4.42, Monocytes # (Auto) 0.61, Eosinophils # (Auto) 0.04, Basophils # (Auto) 0.05 06/17/16 20:41 Test 06/17/16 20:41 06/17/16 20:58 06/17/16 21:05 2/19/17 22:35 White Blood Count 14.64 K/uL (4.8-10.8) Red Blood Count 5.98 M/uL (4.2-5.4) Hemoglobin 18.5 g/dL (12.0-16.0) Hematocrit 50.6 % (37-47) Mean Corpuscular Volume 84.6 fL (80-100) Mean Corpuscular Hemoglobin 30.9 pg (25-34) Mean Corpuscular Hemoglobin Concent 36.6 g/dl (32-36) Platelet Count 774 K/uL (130-400) Mean Platelet Volume 9.5 fL (7.4-10.4) Neutrophils (%) (Auto) 63.6 % Lymphocytes (%) (Auto) 30.2 % Monocytes (%) (Auto) 4.2 % Eosinophils (%) (Auto) 0.3 % Basophils (%) (Auto) 0.3 % Neutrophils # (Auto) 9.31 K/uL (1.4-6.5) Lymphocytes # (Auto) 4.42 K/uL (1.2-3.4) Monocytes # (Auto) 0.61 K/uL (0.11-0.59) Eosinophils # (Auto) 0.04 K/uL (0-0.5) Basophils # (Auto) 0.05 K/uL (0-0.2) RDW Standard Deviation 43.7 fL (36.4-46.3) RDW Coefficient of Variation 14.4 % (11.5-14.5) Immature Granulocyte % (Auto) 1.4 % Immature Granulocyte # (Auto) 0.21 K/uL (0.00-0.02) Anion Gap 14.0 mmol/L (3-11) Est Creatinine Clear Calc Drug Dose 30.3 ml/min Estimated GFR () 50.8 Estimated GFR (Non- 43.9 BUN/Creatinine Ratio 13.8 (10-20) Calcium Level 10.8 mg/dl (8.5-10.1) Total Bilirubin 0.4 mg/dl (0.2-1) Direct Bilirubin 0.1 mg/dl (0-0.2) Aspartate Amino Transf (AST/SGOT) 28 U/L (15-37) Alanine Aminotransferase (ALT/SGPT) 32 U/L (12-78) Alkaline Phosphatase 123 U/L (45-117) Total Creatine Kinase 37 U/L (26-192) Creatine Kinase MB 1.0 ng/ml (0.5-3.6) Creatine Kinase MB Ratio 2.7 (0-3.0) Total Protein 9.7 gm/dl (6.4-8.2) Albumin 4.2 gm/dl (3.4-5.0) Lipase 288 U/L (73-393) Salicylates Level 3.0 mg/dl (2.8-20) Acetaminophen Level < 2 ug/ml (10-30) Ethyl Alcohol mg/dL 199.0 mg/dl (0-3) Bedside Troponin I 0.020 ng/ml (0-0.045) Urine Color YELLOW Urine Appearance CLEAR (CLEAR) Urine pH 6.5 (4.5-7.5) Urine Specific [place] 1.013 (1.000-1.030) Urine Protein 2+ (NEG) Urine Glucose (UA) NEG (NEG) Urine Ketones NEG (NEG) Urine Occult Blood NEG (NEG) Urine Nitrite NEG (NEG) Urine Bilirubin NEG (NEG) Urine Urobilinogen NEG (NEG) Urine Leukocyte Esterase NEG (NEG) Urine WBC (Auto) 0 /hpf (0-5) Urine RBC (Auto) 0-4 /hpf (0-4) Urine Hyaline Casts (Auto) 1-5 /lpf (0-5) Urine Epithelial Cells (Auto) 0-5 /lpf (0-5) Urine Bacteria (Auto) NEG (NEG) Urine Opiates Screen POS (NEG) Urine Methadone, Qualitative NEG (NEG) Urine Barbiturates NEG (NEG) Urine Phencyclidine (PCP) Level NEG (NEG) Ur Amphetamine/Methamphetamine NEG (NEG) MDMA (Ecstasy) Screen NEG (NEG) Urine Benzodiazepines Screen NEG (NEG) Urine Cocaine Metabolite NEG (NEG) Urine Marijuana (THC) NEG (NEG) Laboratory studies as stated above per my review. Medications Administered Medications (Trade) Dose Ordered Sig/Lan Route Start Time Stop Time Status Last Admin Dose Admin Lorazepam (Ativan Inj) 0.5 mg NOW STAT IV 06/17/16 21:45 06/17/16 21:46 DC 06/17/16 22:01 0.5 MG ECG Indication: altered mental status Rate (beats per minute): 101 Rhythm: sinus tachycardia Findings: no acute ischemic change, other (Right axis deviation, Poor R wave progression, ) Comparison ECG Date: 05/12/16 Change: EKG Change: When compared to EKG done on 05/12/16, rate has increased, but no other acute change. ED Course 2002: Past medical records reviewed. The patient was evaluated in room B12B, and a complete history and physical examination were performed. 2101: I reevaluated the patient and she is becoming agitated 2114: I reevaluated the patient and she is going to be placed in leather restraints. 2139: I discussed the treatment plan with the patient's family and they verbalized complete understanding and agreement. The patient will be evaluated for further treatment. 2144: Ordered Ativan Inj 0.5 mg IV. 2145: I discussed the patient's case with Jyoti Jackson. He is going to evaluate the patient for further treatment. 2223: I reevaluated the patient and she is resting. Medical Decision Differentials include, but are not limited to; intracranial hemorrhage, toxicologic process, overdose, pulmonary process, electrolyte or metabolic abnormality, trauma. This patient comes in as described above. She was placed in room B12. The nurses came and got me to see her as there was concern about intracranial hemorrhage or process. She did have a fall about 2 weeks ago and has had a headache and apparent vomiting. Upon my evaluation, she is sleepy but arousable making purposeful movements but not responding appropriately to questions. Her neurologic exam is otherwise nonfocal. She was sent over for a stat CAT scan of her head. IV access was established and blood work was obtained. The CAT scan was unremarkable. When moving her in the CAT scan, the nurses smelled alcohol on her breath. I did a blood alcohol as well as toxicologic studies. Blood alcohol came back negative in the elevated at 199. This can certainly explain a lot if not all of her symptoms. She also has multiple other medications to there could be other medications involved. She does have a mildly elevated white count but no fever. Her vital signs of been otherwise stable. She's been stable from respiratory standpoint. She has nothing to suggest an acute coronary syndrome or arrhythmia. Aspirin Tylenol levels do not suggest an aspirin or Tylenol overdose. Her urine drug she was positive for opiates which she takes therapeutically and it is possible that there is a synergistic effect with the alcohol. She was sleeping but then started getting more more agitated trying to get out of bed. We had to use soft restraints for her protection. The family was in agreement with this also gave her a small dose of Ativan 0.5 mg IV. I have consulted Dr. Villalpando as I do think she needs to be admitted for observation to ensure she did not take any other medications and ensure there is no other process going on as the alcohol wears off as well. He agrees and will see her in the emergency department. Consults Time Called: 2131 Consulting Physician: Jyoti Jackson Returned Call: 2145 I discussed the patient's case with Jyoti Jackson. He is going to evaluate the patient for further treatment. Impression Primary Impression: Altered mental status Additional Impressions: Alcohol intoxication Overdose Critical Care Due to the patient's altered mental status concern for intracranial process and need for frequent reassessment and evaluation and IV medication, I have personally spent greater than 30 minutes of critical care time in the direct management of this patient. This includes bedside care, interpretation of diagnostic studies, and testing, discussion with consultants, patient, and family members, and other required patient management activities. This 30 minutes is in excess of all separately billable procedures. Scribe Attestation The scribe's documentation has been prepared under my direction and personally reviewed by me in its entirety. I confirm that the note above accurately reflects all work, treatment, procedures, and medical decision making performed by me. Departure Information Dispostion Being Evaluated By Hospitalist Referrals Ron Ortega MD (PCP) Problem Qualifiers
[2016-06-17 22:21] LABS: BENZODIAZEPINE, URINE NEG (NEG); COCAINE,URINE NEG (NEG); PHENCYCLIDINE, URINE NEG (NEG)
[2016-06-17] MEDS ORDERED: MULTI-VITAMIN INFUSION INJ 10 ML, THIAMINE HCL INJ 100 MG, FoLIC ACID INJ 1 MG in SODIU... IV STA (22:31)
[2016-06-17 22:53] LABS: PARTIAL THROMBOPLASTIN RATIO 1.7; PROTHROMBIN TIME (PATIENT) 10.7 SECONDS (9.0-12.0)
[2016-06-17 22:56] LABS: MAGNESIUM 2.3 mg/dl (1.8-2.4); PHOSPHORUS 3.4 mg/dl (2.5-4.9); THYROID STIMULATING HORMONE 0.395 uIu/ml (0.300-4.500)
[2016-06-17] MEDS ORDERED: ACETAMINOPHEN 325 MG TAB PO PRN (23:30)
[2016-06-17] MEDS ORDERED: LORAZEPAM 2 MG/ML 1 ML VIAL IV PRN (23:30)
[2016-06-17] MEDS ORDERED: NITROGLYCERIN 0.4 MG SL PER TAB CHARGE SL PRN (23:30)
[2016-06-18] MEDS ORDERED: OPTIRAY 320 IV PRN (00:15)
[2016-06-18] MEDS ORDERED: LORAZEPAM 2 MG/ML 1 ML VIAL IV PRN (00:15)
[2016-06-18 01:09] VITALS: BP 182/110; PULSE 90; TEMP 36.7; Ht 157.5 cm; Wt 47.4 kg
[2016-06-18] MEDS ORDERED: LISINOPRIL 2.5 MG TAB PO ONE (02:09)
[2016-06-18] MEDS ORDERED: NSS + 20MEQ KCL 1000ML 1,000 ML IV SCH ×2 (02:45→08:00)
[2016-06-18 03:55] VITALS: BP 170/97; PULSE 94; TEMP 36.8; O2SAT 91
--- NOTE | 2016-06-18 04:42 | HISTORY & PHYSICAL EXAMINATION ---
DATE OF ADMISSION: 06/17/2016 PRIMARY CARE PHYSICIAN: Dr. Ortega. History obtained from records, patient's daughter, Limited history obtained from px secondary to disorientation. CHIEF COMPLAINT: "Let me go," as per patient; altered mental status as per daughter. HISTORY OF PRESENT ILLNESS: Medical history significant for a nonsmall cell lung cancer on the left sp surgery, chemoradiation in 2003, left adrenal adenoma status post adrenalectomy, COPD, past tobacco abuse as per records, chronic pain on narcotics, tubulovillous adenoma status post laparoscopic resection. depression as per daughter. Recent confinement last April 2016 for COPD exacerbation, anxiety. Patient discharged home. Patient seen at the Emergency Room about 2 weeks ago for mechanical fall. Patient had scalp laceration repaired. Patient subsequently sent home. Seen at PCP's office on followup a few days ago. Started on prednisone course for possible dermatitis. Of note transient hypoxemia at the office, 86 to 92. Discussion about possible reactive depression. Outpx Psychiatry referral contemplated. Patient complained to daughter of the "worst headache" the last few days. No nausea, no vomiting. Home BP not known. Px refused to go to the ER. Last night the patient was found by daughter at home to be disoriented and minimally responsive. Patient walked into her own closet instead of the bathroom. EMS called. Patient brought to the Emergency Room. Had to be given Ativan for agitation. At the Emergency Room, when px answered "yes, yes" to queries about about chest pain, shortness of breath and abdominal pain sx. MEDICAL HISTORY: As above. SURGERIES: Splenectomy for spleen injury, appendectomy, cholecystectomy, nephrectomy, adrenalectomy. HOME MEDICATIONS: Include prednisone course, atorvastatin, calcitriol, fish oil, gabapentin, ipratropium, lorazepam, glucosamine, morphine sulfate. ALLERGIES: CODEINE, PENICILLIN AND PROCAINE. FAMILY HISTORY: There is a family history of hypertension. PERSONAL AND SOCIAL HISTORY: Past tobacco abuse. Patient's daughter unaware of chronic intake of alcohol. Last drink was at Thanksgiving, although tonight they were surprised to find a bottle of gin in patient's closet . 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 Living independently. Daughter has been living with patient the last few weeks since her illness. REVIEW OF SYSTEMS: Cannot be obtained reliably obtained. PHYSICAL EXAMINATION: VS BP 177.100, NC 92 RR 24 T 37 O2 97RA GENERAL: Agitated, strapped to the stretcher, disoriented. Alcoholic fetor. SKIN : normal color HEENT: [place] palpebral conjunctivae. Dry mucosa. NECK: No JVD. supple CHEST: Decreased effort. HEART: Tachycardic. ABDOMEN: Soft, minimal distention. EXTREMITIES: No edema. no tenderness NEUROLOGIC: agitated. disoriented LABORATORY DATA: Hemoglobin was 18, hematocrit 50, white blood cells 14, platelets 774. Sodium 134, potassium 3.7, chloride 94, CO2 of 26, BUN 70, creatinine 1, glucose was noted to be 80, alkaline phosphatase 123. Lipase normal. An alcohol level was noted to be 199. D-dimer was abnormal. Troponin was normal. UDS opiate positive. UA, hyaline casts. CT head, no acute process. Chest x-ray showed mild cardiomegaly. EKG sinus tachycardia, RAD, left atrial enlargement, negative ischemia. ASSESSMENT: 1. Encephalopathy multifactorial : home neuropsychotropics, narcotics for chronic pain meds alcoholic intake ? covert/surreptitious alcohol abuse recent steroid rx for dermatitis. ro occult infection 2. Worst headache, possibly from hypertensive urgency recent head injury. rule out subarachnoid hemorrhage 3. Chest pain, sob non-specific px complaint from disoriented px ? 2 to HTN urgency, px not on any maintenance home meds rule out pulmonary embolism 4. abd pain nonspecific complaint from disoriented px no overt peritonitis 5. COPD, past tobacco abuse breathing seems to be stable 6. hx NSCLC sp post surgery, chemoradiation. 7. Left adrenal surgery. 8. Hypertensi 6. Chronic pain, on narcotics. 9. depression, suboptimal as per daughter PLAN: PCU. Hold neuropsychotropics and home narcotic meds for now until mentation at baseline. Ativan p.r.n. agitation DT precautions. low dose ACEI CT chest, PE study. CT head angio rule out subarachnoid hemorrhage. CT abdomen and pelvis for abdominal pain. N.p.o. sips until CT results known PT/OT eval. Px daughter requesting for Psych consult for px depression. ( as per request) DVT prophylaxis, SCDs for now until intracranial hemorrhage ruled out. Full code as per daughter, Miss Corinna Jacob. Contact number [phone]. [facility]
[2016-06-18] MEDS: ONDANSETRON INJ 2 MG/ML 2 ML VIAL IV PRN ×2 (04:56→14:58)
[2016-06-18 06:56] LABS: BASO % 0.2 %; BASO ABS # 0.04 K/uL (0-0.2); COMPLETE YES; EOS % 0.1 %; IG% 0.9 %; LYMPH % 22.3 %; MEAN CORPUSCULAR HEMOGLOBIN 30.3 pg (25-34); MEAN CORPUSCULAR HGB CONC 36.1 g/dl (32-36); MEAN PLATELET VOLUME 9.5 fL (7.4-10.4); MONO % 7.3 %; NEUT % 69.2 %; PLATELET COUNT 710 K/uL (130-400); RED BLOOD COUNT 5.24 M/uL (4.2-5.4); WHITE BLOOD COUNT 17.07 K/uL (4.8-10.8)
[2016-06-18 07:03] VITALS: BP 153/87; PULSE 92; TEMP 36.9; O2SAT 93
[2016-06-18 07:35] LABS: BLOOD UREA NITROGEN 21 mg/dl (7-18); BUN/CREATININE RATIO 18.7 (10-20); CALCIUM 9.4 mg/dl (8.5-10.1); CARBON DIOXIDE 22 mmol/L (21-32); CHLORIDE 101 mmol/L (98-107); GLUCOSE 73 mg/dl (70-99); POTASSIUM 3.9 mmol/L (3.5-5.1); SODIUM 136 mmol/L (136-145)
[2016-06-18] MEDS: THIAMINE HCL 100 MG TAB PO SCH (08:20)
[2016-06-18] MEDS: MULTIVITAMIN TAB PO SCH (08:20)
[2016-06-18] MEDS: PANTOprazole SOD 40 MG TAB PO SCH (08:20)
[2016-06-18] MEDS ORDERED: MULTIVITAMIN TAB PO SCH (09:00)
[2016-06-18] MEDS ORDERED: PNEUMOCOCCAL ADMINISTRATION CHARGE ONE (09:00)
[2016-06-18] MEDS ORDERED: PNEUMOCOCCAL POLYSACCHARIDES 25 MCG/0.5 ML VIAL/SYR IM. ONE (09:00)
[2016-06-18] MEDS ORDERED: INFLUENZA ADMINISTRATION CHARGE ONE (09:00)
[2016-06-18] MEDS ORDERED: ESCITALOPRAM OXALATE 10 MG TAB PO SCH (09:00)
[2016-06-18] MEDS ORDERED: INFLUENZA VIRUS QUAD VACCINE 0.5 ML SYR IM. ONE (09:00)
[2016-06-18] MEDS: LORAZEPAM 0.5 MG TAB PO PRN (12:09)
[2016-06-18] MEDS: TRAMADOL HCL 50 MG TAB PO PRN (14:56)
[2016-06-18] MEDS: MoRPHine SULFATE IR 15 MG TAB (IMMEDIATE RELEASE) PO PRN (15:10)
[2016-06-18 15:42] VITALS: BP 185/97; PULSE 95; TEMP 37.2; O2SAT 94
--- NOTE | 2016-06-18 16:17 | Psychiatric Consultation ---
Consultation Identifying Data 76-year-old white female who lives alone in [place], has a history of depression treated by her PCP, and presented after her daughter found her disoriented and minimally responsive in the context of alcohol intoxication. She's been admitted to the hospitalist service, and psychiatry was consulted for depression. Chief Complaint "My friend in September, she was really sick". History of Present Illness The patient presented to the emergency room last night with altered mental status after her daughter found her disoriented. Initially there was a concern for an intracranial hemorrhage, as she had been seen in the emergency room recently after a fall. She was not spontaneous appropriately to questions in the emergency room. While staff were assisting her to get a CAT scan, they noted her breath smelled of alcohol. Toxicology screen was then checked, and blood alcohol was 199, and positive for opiates, and she is apparently prescribed narcotic pain medication. Her vital signs were stable, but she had a mildly elevated white blood cell count. She became agitated in the emergency room, and had to be placed in leather restraints. She also received lorazepam IV. She was unable to participate in her admission assessment, and much of the information was gathered from her daughter, who stated that the patient had been more depressed recently, and she had discussed a referral to psychiatry with the patient's PCP, Dr. Ortega. Records also indicated that she had been admitted in April 2016 for a COPD exacerbation, and then seen in the emergency room earlier this month after a fall, where she had to have a scalp laceration repaired. Her daughter was not aware of chronic alcohol intake, and thought her last drink had been at Thanksgiving. She was surprised to find the bottle of gin and the patient's closet. Her daughter has been staying with her for several weeks due to her respiratory illness. On admission, she was continued on morphine sulfate IR, lorazepam 0.5 mg twice a day when necessary anxiety, and escitalopram 10 mg daily. On my assessment, the patient states that her daughter has been staying with her because she's had bronchitis and has been ill. She states that she has been depressed since September, when a good friend of hers . Despite reporting worsening mood, she states that her PCP decreased her Lexapro a few weeks ago from 20 mg to 10 mg daily because "he thought I was doing good." She admits that she has not been talking to other people about how poorly she is feeling. She states that yesterday, her daughter went to anglican, while the patient stayed home alone. She got out a bottle of gin that was left over from the holidays and drank about a quarter of the bottle. She initially says she did this because "I just felt like drinking," and later said she did it because "I wanted to sleep." She denies that she was trying to harm herself, and states that she didn't realize that she was drinking excessively. She says this same type of thing happened once before, several years ago. She states she typically does not drink, except on special occasions. She denies overdosing on any other substances yesterday, but thinks she took her regularly scheduled medications. She is prescribed Ativan from her PCP, which she states she takes about once a week to help with sleep. She reports decreased appetite, depression for at least 8 months, hopelessness, impaired focus, and decreased interest. She denies suicidal thoughts, problems with energy, crying spells, and sleep disturbance. She states she used to enjoy horseback riding and swimming but now can engage in these activities due to her physical condition. She does enjoy going to her anglican. She denies symptoms of cachorro, anxiety, and psychosis. She is asking for Ativan, stating that she feels nauseated, and that she thinks the Ativan might help with that. Past Psychiatric History Current OP Treatment: no current treatment (PCP prescribes psychotropic medications) Prior OP Treatment: therapist (saw Dr. Moses in the past) Denies a history of hospitalizations or suicide attempts. Thinks that her PCP has been treating her for depression for about 2 years. Allergies Allergies: Coded Allergies: Codeine (Verified Allergy, Unknown, 06/17/16) Penicillins (Unverified Allergy, Unknown, hives, 06/17/16) Procaine (Verified Allergy, Unknown, SWELLING, 06/17/16) Home Medications Scheduled Atorvastatin (Lipitor), 10 MG PO DAILY Calcitriol (Rocaltrol Cap), 0.25 MCG PO 3XWK Escitalopram (Lexapro), 10 MG PO DAILY Fish Oil ([place]-3), 1 CAP PO BID Gabapentin (Neurontin *), 600 MG PO BID Glucosamine Sulfate (Glucosamine Unknown Dose), 1 TABS PO BID Ipratropium-Albuterol (Duoneb), 3 ML INH Q6R Morphine Sulfate (Ms Contin), 30 MG PO Q8 Multivitamin (Multivitamin), 1 TAB PO DAILY Omeprazole (Prilosec), 20 MG PO DAILY Umeclidinium-Vilanterol (Anoro Ellipta 62.5-25 Mcg/INH), 1 PUFF INH DAILY Scheduled PRN Lorazepam (Ativan *), 0.5 MG PO UD PRN for Anxiety/Insomnia Family History Cancer Lung disease Mother with depression, anxiety, and alcoholism. No family history of suicide. Alcohol Use Drink one quarter bottle of gin yesterday. Denies that she drinks alcohol more than one drink on a special occasion, and thinks her last drink prior to yesterday was years ago. Denies history of heavy drinking, other than one episode several years ago where she says she accidentally drank too much. Denies other substance use. 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 Relationship History: Children: 1 daughter who lives in [place] Spiritual Affiliation: attends [employer] Legal History: none Abuse History: none Review of Systems Patient reports nausea. 10 systems reviewed, others negative except as stated above. Examination Vital Signs Vital Signs Past 12 Hours Date Time Temp Pulse Resp B/P Pulse Ox O2 Delivery O2 Flow Rate FiO2 06/18/16 15:42 37.2 95 18 185/97 94 Room Air 06/18/16 12:00 Room Air 06/18/16 08:00 Room Air 06/18/16 07:03 36.9 92 18 153/87 93 Room Air Laboratory Results Last 24 Hours Test 06/17/16 20:41 06/17/16 20:58 06/17/16 21:05 06/17/16 22:35 White Blood Count 14.64 K/uL Red Blood Count 5.98 M/uL Hemoglobin 18.5 g/dL Hematocrit 50.6 % Mean Corpuscular Volume 84.6 fL Mean Corpuscular Hemoglobin 30.9 pg Mean Corpuscular Hemoglobin Concent 36.6 g/dl Platelet Count 774 K/uL Mean Platelet Volume 9.5 fL Neutrophils (%) (Auto) 63.6 % Lymphocytes (%) (Auto) 30.2 % Monocytes (%) (Auto) 4.2 % Eosinophils (%) (Auto) 0.3 % Basophils (%) (Auto) 0.3 % Neutrophils # (Auto) 9.31 K/uL Lymphocytes # (Auto) 4.42 K/uL Monocytes # (Auto) 0.61 K/uL Eosinophils # (Auto) 0.04 K/uL Basophils # (Auto) 0.05 K/uL RDW Standard Deviation 43.7 fL RDW Coefficient of Variation 14.4 % Immature Granulocyte % (Auto) 1.4 % Immature Granulocyte # (Auto) 0.21 K/uL Prothrombin Time 10.4 SECONDS 10.7 SECONDS Prothromb Time International Ratio 1.0 1.0 Activated Partial Thromboplast Time 41.5 SECONDS 43.8 SECONDS Partial Thromboplastin Ratio 1.6 1.7 D-Dimer 680 ug/L FEU Sodium Level 134 mmol/L Potassium Level 3.7 mmol/L Chloride Level 94 mmol/L Carbon Dioxide Level 26 mmol/L Anion Gap 14.0 mmol/L Blood Urea Nitrogen 17 mg/dl Creatinine 1.20 mg/dl Est Creatinine Clear Calc Drug Dose 30.3 ml/min Estimated GFR () 50.8 Estimated GFR (Non- 43.9 BUN/Creatinine Ratio 13.8 Random Glucose 80 mg/dl Calcium Level 10.8 mg/dl Phosphorus Level 3.4 mg/dl Magnesium Level 2.3 mg/dl Total Bilirubin 0.4 mg/dl Direct Bilirubin 0.1 mg/dl Aspartate Amino Transf (AST/SGOT) 28 U/L Alanine Aminotransferase (ALT/SGPT) 32 U/L Alkaline Phosphatase 123 U/L Total Creatine Kinase 37 U/L Creatine Kinase MB 1.0 ng/ml Creatine Kinase MB Ratio 2.7 Total Protein 9.7 gm/dl Albumin 4.2 gm/dl Lipase 288 U/L Thyroid Stimulating Hormone (TSH) 0.395 uIu/ml Salicylates Level 3.0 mg/dl Acetaminophen Level < 2 ug/ml Ethyl Alcohol mg/dL 199.0 mg/dl Bedside Troponin I 0.020 ng/ml Urine Color YELLOW Urine Appearance CLEAR Urine pH 6.5 Urine Specific [place] 1.013 Urine Protein 2+ Urine Glucose (UA) NEG Urine Ketones NEG Urine Occult Blood NEG Urine Nitrite NEG Urine Bilirubin NEG Urine Urobilinogen NEG Urine Leukocyte Esterase NEG Urine WBC (Auto) 0 /hpf Urine RBC (Auto) 0-4 /hpf Urine Hyaline Casts (Auto) 1-5 /lpf Urine Epithelial Cells (Auto) 0-5 /lpf Urine Bacteria (Auto) NEG Urine Opiates Screen POS Urine Methadone, Qualitative NEG Urine Barbiturates NEG Urine Phencyclidine (PCP) Level NEG Ur Amphetamine/Methamphetamine NEG MDMA (Ecstasy) Screen NEG Urine Benzodiazepines Screen NEG Urine Cocaine Metabolite NEG Urine Marijuana (THC) NEG Lactic Acid Level 4.6 mmol/L Ammonia 11.0 umol/L Parathyroid Hormone (Intact) 60.9 pg/mL Test 06/18/16 06:39 White Blood Count 17.07 K/uL Red Blood Count 5.24 M/uL Hemoglobin 15.9 g/dL Hematocrit 44.0 % Mean Corpuscular Volume 84.0 fL Mean Corpuscular Hemoglobin 30.3 pg Mean Corpuscular Hemoglobin Concent 36.1 g/dl Platelet Count 710 K/uL Mean Platelet Volume 9.5 fL Neutrophils (%) (Auto) 69.2 % Lymphocytes (%) (Auto) 22.3 % Monocytes (%) (Auto) 7.3 % Eosinophils (%) (Auto) 0.1 % Basophils (%) (Auto) 0.2 % Neutrophils # (Auto) 11.80 K/uL Lymphocytes # (Auto) 3.80 K/uL Monocytes # (Auto) 1.25 K/uL Eosinophils # (Auto) 0.02 K/uL Basophils # (Auto) 0.04 K/uL RDW Standard Deviation 44.0 fL RDW Coefficient of Variation 14.4 % Immature Granulocyte % (Auto) 0.9 % Immature Granulocyte # (Auto) 0.16 K/uL Sodium Level 136 mmol/L Potassium Level 3.9 mmol/L Chloride Level 101 mmol/L Carbon Dioxide Level 22 mmol/L Anion Gap 13.0 mmol/L Blood Urea Nitrogen 21 mg/dl Creatinine 1.10 mg/dl Est Creatinine Clear Calc Drug Dose 34.4 ml/min Estimated GFR () 56.5 Estimated GFR (Non- 48.7 BUN/Creatinine Ratio 18.7 Random Glucose 73 mg/dl Lactic Acid Level 1.5 mmol/L Calcium Level 9.4 mg/dl Troponin I < 0.015 ng/ml Chemistry Specimen Hemolysis Mental Examination During interview pt is: alert and oriented, cooperative Appearance: disheveled Eye contact is: fair Motor behavior is: no abnormal motor movements Speech: normal in rate, rhythm & volume Affect: depressed, constricted Mood is: depressed Thought process: goal directed Thought content: reality based without delusions Suicidal thought are: denied Homicidal thoughts are: denied Hallucinations: denies auditory, denies visual Cognition: memory grossly intact (except for events when intoxicated), attention grossly intact, language grossly intact Intelligence estimated to be: average Insight: impaired Judgement: impaired Impression / Recommendations Impression 76-year-old white female who lives alone in [facility], has a history of depression treated by her PCP, and presents with altered mental status after drinking a large amount of gin with a blood alcohol level of 199. She reports a previous good response to escitalopram 20 mg daily, but states her dose was decreased a few weeks ago after she told her PCP she was doing well , while she is now saying she has been increasingly depressed for the past 8 months. She would benefit from follow-up with a psychiatrist and therapist, and would like to return to see Dr. Moses if possible. Recommendations (1) Depression - Increase escitalopram to 15 mg daily. - Get records from PCP, Dr. Ortega, to try to determine why SSRI was decreased. Coordinate care and send this consultation report. - Recommend follow-up with a geriatric psychiatrist and therapist. She prefers to see Dr. Moses at [facility] if possible. - Recommend discontinuing lorazepam due to risk of cognitive impairment, advanced age, development of tolerance or misuse, risk of overdose, and concurrent use of morphine. - She denies significant anxiety component, but could offer hydroxyzine 25 mg when necessary for anxiety if needed. (2) Alcohol intoxication - Patient reporting nausea, and asking for lorazepam. Encouraged her to use antinausea medications instead.
[2016-06-18] MEDS ORDERED: NURSING VERBAL MED ORDER ONE (18:00)
[2016-06-18 19:14] VITALS: BP 154/87; PULSE 96; TEMP 36.7; O2SAT 93
--- NOTE | 2016-06-18 20:06 | Progress Note ---
Medicine Progress Note Date & Time of Visit: Jun 18, 2016 at 19:41. Subjective Pt was seen and examined Lying in bed comfortable with daughter at bedside She seems back to her baseline pt has been asking me to resume her narcotic and her ativan for her She said that the narcotic is for her pain and the ativan helps with her anxiety she said that she has been feeling more depressed lately she denies any suicidal thought, palpitation, dizziness and sob Objective Last 8 Hrs Date Time Temp Pulse Resp B/P Pulse Ox O2 Delivery O2 Flow Rate FiO2 06/18/16 19:14 36.7 96 18 154/87 93 Room Air 06/18/16 15:59 Room Air 06/18/16 15:42 37.2 95 18 185/97 94 Room Air 06/18/16 12:00 Room Air Physical Exam: General- No acute distress Head- atraumatic Eyes- PERRL, EOMI ENT- oropharynx clear Neck- supple, no JVD Lungs- clear to auscultation and percussion Heart- regular rhythm; no murmur Abdomen- normal bowel sounds, soft Extremities- no calf tenderness Neuro- alert, oriented x 3; PERRL, EOMI Skin- warm & dry Laboratory Results: Last 24 Hours Test 06/17/16 20:41 06/17/16 20:58 06/17/16 21:05 06/17/16 22:35 White Blood Count 14.64 K/uL Red Blood Count 5.98 M/uL Hemoglobin 18.5 g/dL Hematocrit 50.6 % Mean Corpuscular Volume 84.6 fL Mean Corpuscular Hemoglobin 30.9 pg Mean Corpuscular Hemoglobin Concent 36.6 g/dl Platelet Count 774 K/uL Mean Platelet Volume 9.5 fL Neutrophils (%) (Auto) 63.6 % Lymphocytes (%) (Auto) 30.2 % Monocytes (%) (Auto) 4.2 % Eosinophils (%) (Auto) 0.3 % Basophils (%) (Auto) 0.3 % Neutrophils # (Auto) 9.31 K/uL Lymphocytes # (Auto) 4.42 K/uL Monocytes # (Auto) 0.61 K/uL Eosinophils # (Auto) 0.04 K/uL Basophils # (Auto) 0.05 K/uL RDW Standard Deviation 43.7 fL RDW Coefficient of Variation 14.4 % Immature Granulocyte % (Auto) 1.4 % Immature Granulocyte # (Auto) 0.21 K/uL Prothrombin Time 10.4 SECONDS 10.7 SECONDS Prothromb Time International Ratio 1.0 1.0 Activated Partial Thromboplast Time 41.5 SECONDS 43.8 SECONDS Partial Thromboplastin Ratio 1.6 1.7 D-Dimer 680 ug/L FEU Sodium Level 134 mmol/L Potassium Level 3.7 mmol/L Chloride Level 94 mmol/L Carbon Dioxide Level 26 mmol/L Anion Gap 14.0 mmol/L Blood Urea Nitrogen 17 mg/dl Creatinine 1.20 mg/dl Est Creatinine Clear Calc Drug Dose 30.3 ml/min Estimated GFR () 50.8 Estimated GFR (Non- 43.9 BUN/Creatinine Ratio 13.8 Random Glucose 80 mg/dl Calcium Level 10.8 mg/dl Phosphorus Level 3.4 mg/dl Magnesium Level 2.3 mg/dl Total Bilirubin 0.4 mg/dl Direct Bilirubin 0.1 mg/dl Aspartate Amino Transf (AST/SGOT) 28 U/L Alanine Aminotransferase (ALT/SGPT) 32 U/L Alkaline Phosphatase 123 U/L Total Creatine Kinase 37 U/L Creatine Kinase MB 1.0 ng/ml Creatine Kinase MB Ratio 2.7 Total Protein 9.7 gm/dl Albumin 4.2 gm/dl Lipase 288 U/L Thyroid Stimulating Hormone (TSH) 0.395 uIu/ml Salicylates Level 3.0 mg/dl Acetaminophen Level < 2 ug/ml Ethyl Alcohol mg/dL 199.0 mg/dl Bedside Troponin I 0.020 ng/ml Urine Color YELLOW Urine Appearance CLEAR Urine pH 6.5 Urine Specific [place] 1.013 Urine Protein 2+ Urine Glucose (UA) NEG Urine Ketones NEG Urine Occult Blood NEG Urine Nitrite NEG Urine Bilirubin NEG Urine Urobilinogen NEG Urine Leukocyte Esterase NEG Urine WBC (Auto) 0 /hpf Urine RBC (Auto) 0-4 /hpf Urine Hyaline Casts (Auto) 1-5 /lpf Urine Epithelial Cells (Auto) 0-5 /lpf Urine Bacteria (Auto) NEG Urine Opiates Screen POS Urine Methadone, Qualitative NEG Urine Barbiturates NEG Urine Phencyclidine (PCP) Level NEG Ur Amphetamine/Methamphetamine NEG MDMA (Ecstasy) Screen NEG Urine Benzodiazepines Screen NEG Urine Cocaine Metabolite NEG Urine Marijuana (THC) NEG Lactic Acid Level 4.6 mmol/L Ammonia 11.0 umol/L Parathyroid Hormone (Intact) 60.9 pg/mL Test 06/18/16 06:39 White Blood Count 17.07 K/uL Red Blood Count 5.24 M/uL Hemoglobin 15.9 g/dL Hematocrit 44.0 % Mean Corpuscular Volume 84.0 fL Mean Corpuscular Hemoglobin 30.3 pg Mean Corpuscular Hemoglobin Concent 36.1 g/dl Platelet Count 710 K/uL Mean Platelet Volume 9.5 fL Neutrophils (%) (Auto) 69.2 % Lymphocytes (%) (Auto) 22.3 % Monocytes (%) (Auto) 7.3 % Eosinophils (%) (Auto) 0.1 % Basophils (%) (Auto) 0.2 % Neutrophils # (Auto) 11.80 K/uL Lymphocytes # (Auto) 3.80 K/uL Monocytes # (Auto) 1.25 K/uL Eosinophils # (Auto) 0.02 K/uL Basophils # (Auto) 0.04 K/uL RDW Standard Deviation 44.0 fL RDW Coefficient of Variation 14.4 % Immature Granulocyte % (Auto) 0.9 % Immature Granulocyte # (Auto) 0.16 K/uL Sodium Level 136 mmol/L Potassium Level 3.9 mmol/L Chloride Level 101 mmol/L Carbon Dioxide Level 22 mmol/L Anion Gap 13.0 mmol/L Blood Urea Nitrogen 21 mg/dl Creatinine 1.10 mg/dl Est Creatinine Clear Calc Drug Dose 34.4 ml/min Estimated GFR () 56.5 Estimated GFR (Non- 48.7 BUN/Creatinine Ratio 18.7 Random Glucose 73 mg/dl Lactic Acid Level 1.5 mmol/L Calcium Level 9.4 mg/dl Troponin I < 0.015 ng/ml Chemistry Specimen Hemolysis Date/Time Source Procedure Growth Status 06/17/16 22:42 Blood Blood Culture Pending Received 06/17/16 22:35 Blood Blood Culture Pending Received 06/17/16 21:05 Urine,Catheterized Urine Culture - Preliminary NO GROWTH - LESS THAN 1,000 COLONIES/... Resulted Assessment & Plan Encephalopathy possible related to alcohol intoxication vs meds such as narcotic and benzo CT head was negative back to her baseline continue monitor Alcohol intoxication Will watch closely for sign of withdraw continue thiamine and folic acid Worst headache possibly from hypertensive urgency vs recent head injury need to rule out subarachnoid hemorrhage CT head with contrast pending Chest pain associated with SOB on admission Saturated comfortable on RA EKG showed no significant ST changes elevated Ddimer Doubt about PE because pt is comfortable on RA CTA chest ordered to r/o Pe Resolved Abd pain associated with Nausea Diet resumed resolved will cancel CT abdomen COPD stable continue respiratory treatment Hx NSCLC sp post surgery stable Chronic pain syndrome On high dose of narcotic, consider to decrease the morphine Depression lexapro increase to 15mg psych consulted Anxiety On ativan prn She came for alcohol intoxication discussed with pt that she cannot drink alcohol while taking ativan consider to wean her off from the benzo due to the risk of fall and overdose Will defer to PCP or psychiatrist to wean her off DVT px waiting for CT head to r/o any bleeding before starting on heparin subq on scds CODE Status Full code Consultants: psych Current Inpatient Medications: Current Inpatient Medications Medications (Trade) Dose Ordered Sig/Lan Route Start Time Stop Time Status Last Admin Dose Admin Acetaminophen (Tylenol Tab) 650 mg Q4H PRN PO 06/17/16 23:30 07/17/16 23:29 Nitroglycerin (Nitrostat Tab) 0.4 mg UD PRN SL 06/17/16 23:30 07/17/16 23:29 Ondansetron HCl (Zofran Inj) 4 mg Q6H PRN IV 06/17/16 23:30 07/17/16 23:29 06/18/16 14:58 4 MG Tramadol HCl (Ultram Tab) 25 mg Q6H PRN PO 06/17/16 23:30 07/17/16 23:29 06/18/16 14:56 25 MG Pantoprazole Sodium (Protonix Tab) 40 mg QAM PO 06/18/16 09:00 07/18/16 08:59 06/18/16 08:20 40 MG Miscellaneous Information (Order Awaiting Action) 1 ea QS N/A 06/18/16 08:00 07/18/16 07:59 Thiamine HCl (Vitamin B-1 Tab) 100 mg QAM PO 06/18/16 09:00 07/18/16 08:59 06/18/16 08:20 100 MG Multivitamins (Multivitamin Tab) 1 tab QAM PO 06/18/16 09:00 07/18/16 08:59 06/18/16 08:20 1 TAB Folic Acid (Folvite Tab) 1 mg QAM PO 06/18/16 09:00 07/18/16 08:59 06/18/16 08:19 1 MG Ioversol (Optiray 320) 100 ml UD PRN IV 06/18/16 00:15 06/22/16 00:14 Lorazepam (Ativan Inj) 0.5 mg Q1H PRN IV 06/18/16 00:15 07/18/16 00:14 Lisinopril (Zestril Tab) 2.5 mg QAM PO 06/19/16 09:00 07/19/16 08:59 Lorazepam (Ativan Tab) 0.5 mg BID PRN PO 06/18/16 12:15 07/18/16 12:14 06/18/16 12:09 0.5 MG Morphine Sulfate (MoRPHine SULFATE IR TAB) 30 mg Q8 PRN PO 06/18/16 15:00 07/02/16 14:59 06/18/16 15:10 30 MG Escitalopram Oxalate (Lexapro Tab) 15 mg DAILY PO 06/19/16 09:00 07/19/16 08:59
[2016-06-18] MEDS ORDERED: ALBUTEROL HFA INHALER 8.5 GM INH SCH (20:30)
--- NOTE | 2016-06-18 20:48 | DIAGNOSTIC IMAGING REPORT ---
CHEST CTA for PULMONARY ARTERIES CT DOSE: 1031.05 mGy.cm HISTORY: Chest pain dyspnea TECHNIQUE: Multiaxial CT images of the chest were performed following the intravenous administration of contrast to evaluate the pulmonary arteries. Maximal intensity projection images were also obtained. COMPARISON STUDY: 09/01/2009 FINDINGS: Thoracic aorta shows generalized abscess chronic change and ectasia. Small amount of intraluminal thrombus is identified in the proximal descending thoracic aorta. Pulmonary vasculature appears to enhance appropriately. No major filling defect is appreciated. Mild bibasilar interstitial change. 12 minimal parenchymal scarring right lateral costophrenic angle. Millimeter pleural-based nodule medial aspect right upper lobe IMPRESSION: 1. Study is negative for pulmonary embolus. 2. Nonspecific bibasilar interstitial prominence. 3. 12 mm pleural-based nodule medial aspect right upper lobe in a right para Mediastinal location. Close follow-up is suggested. 4. Moderate to significant degenerative change thoracic spine Please refer to below summary of Fleischner criteria recommendations for follow-up of incidental CT nodules (Tianna Raya, Guidelines for management of small pulmonary nodules detected on CT scans: A statement from the Fleischner Society, Radiology 237: [phone].) Low Risk Patient: Minimal or no smoking or other known risk factors for malignancy <=4 mm: No follow-up needed. >4-6 mm: Initial follow-up CT at 12 months; if unchanged, no further follow-up. >6-8 mm: Initial follow-up CT at 6-12 months then at 18-24 months if no change. >8 mm: Follow-up CT at \R\3, 9, 24 months, or PET and/or biopsy. High Risk Patient: History of smoking or other known risk factors <=4 mm: Follow-up at 12 months; if unchanged, no further follow-up. >4-6 mm: Initial follow-up CT at 6-12 months then at 18-24 months if no change. >6-8 mm: Initial follow-up CT at 3-6 months then at 9-12 and 24 months if no change. >8 mm: Same as low risk patient. Note: Nodule size measured as average of length and width. Ground glass or partly solid nodules may require longer follow-up to exclude indolent adenocarcinoma. Electronically signed by: Jian Lo M.D. 06/18/2016 8:46 PM Dictated Date/Time: 06/18/2016 8:41 PM
--- NOTE | 2016-06-18 20:49 | DIAGNOSTIC IMAGING REPORT ---
HEAD CTA HISTORY: WORST HEADACHE TECHNIQUE: Multiaxial CT images of the head were performed both before and after the intravenous administration of contrast to evaluate the major cerebral vessels. Maximum intensity projection images were also obtained. COMPARISON: None. FINDINGS: There is no mass, hematoma, midline shift, or acute infarct. Visualized intracranial internal carotid arteries, distal vertebral arteries, and basilar artery are widely patent. There is no significant stenosis, occlusion, or aneurysm seen within the bilateral ACAs, MCAs, or atomic physics teacher. IMPRESSION: No significant stenosis, occlusion, or aneurysm within the [place]. Electronically signed by: Jian Lo M.D. 06/18/2016 8:48 PM Dictated Date/Time: 06/18/2016 8:47 PM
[2016-06-18 23:50] VITALS: BP 148/73; PULSE 80; TEMP 37; O2SAT 96
[2016-06-19] VITALS (7 sets, daily range): BP systolic 147–169; BP diastolic 80–95; PULSE 66–76; TEMP 36.7–37.1; O2SAT 92–94
[2016-06-19] MEDS: LORAZEPAM 0.5 MG TAB PO PRN (01:23)
[2016-06-19] MEDS ORDERED: NSS + 20MEQ KCL 1000ML 1,000 ML IV ONE (02:45)
[2016-06-19 06:01] LABS: HEMATOCRIT 43.7 % (37-47); MEAN CELL VOLUME 85.2 fL (80-100); MEAN CORPUSCULAR HEMOGLOBIN 30.6 pg (25-34); MEAN CORPUSCULAR HGB CONC 35.9 g/dl (32-36); MEAN PLATELET VOLUME 9.6 fL (7.4-10.4); PLATELET COUNT 647 K/uL (130-400); RED BLOOD COUNT 5.13 M/uL (4.2-5.4); WHITE BLOOD COUNT 12.17 K/uL (4.8-10.8)
[2016-06-19 06:47] LABS: BUN/CREATININE RATIO 16.4 (10-20); CALCIUM 9.5 mg/dl (8.5-10.1); CREATININE 1.2 mg/dl (0.60-1.20); POTASSIUM 3.2 mmol/L (3.5-5.1)
[2016-06-19] MEDS: MULTIVITAMIN TAB PO SCH (08:12)
[2016-06-19] MEDS: LISINOPRIL 2.5 MG TAB PO SCH (08:13)
[2016-06-19] MEDS: ESCITALOPRAM OXALATE 10 MG TAB PO SCH (08:13)
[2016-06-19] MEDS: PANTOprazole SOD 40 MG TAB PO SCH (08:14)
[2016-06-19] MEDS: THIAMINE HCL 100 MG TAB PO SCH (08:14)
[2016-06-19] MEDS ORDERED: hydrOXYzine HCL 25 MG TAB PO PRN (09:00)
[2016-06-19] MEDS: MoRPHine SULFATE IR 15 MG TAB (IMMEDIATE RELEASE) PO PRN ×2 (13:18→21:05)
[2016-06-19] MEDS ORDERED: IPRASOL4 INH (18:23)
--- NOTE | 2016-06-19 18:29 | Progress Note ---
Medicine Progress Note Date & Time of Visit: Jun 19, 2016 at 18:02. Subjective Patient seen and examined. Daughter and caregiver present at bedside. Patient states that drinking that bottle of gin was "stupid". She is interested in following with a therapist to help with the of a close friend last summer and help her deal with her health problems. Objective Last 8 Hrs Date Time Temp Pulse Resp B/P Pulse Ox O2 Delivery O2 Flow Rate FiO2 06/19/16 16:00 Room Air 06/19/16 15:04 37.0 70 20 168/81 94 Room Air 06/19/16 12:00 Room Air 06/19/16 11:39 36.8 76 18 160/92 94 Room Air Physical Exam: General-awake; alert; NAD Eyes-EOMI; no scleral icterus Neck-no stridor; trachea midline Lungs-CTA bilaterally; no wheezes/crackles Heart-RRR; no m/r/g Abdomen-soft; NTND; nBS Extremities-no c/c/e; no deformity Neuro-no gross focal deficits Skin-erythema around buttocks Laboratory Results: Last 24 Hours Test 06/19/16 05:25 White Blood Count 12.17 K/uL Red Blood Count 5.13 M/uL Hemoglobin 15.7 g/dL Hematocrit 43.7 % Mean Corpuscular Volume 85.2 fL Mean Corpuscular Hemoglobin 30.6 pg Mean Corpuscular Hemoglobin Concent 35.9 g/dl RDW Standard Deviation 44.3 fL RDW Coefficient of Variation 14.3 % Platelet Count 647 K/uL Mean Platelet Volume 9.6 fL Sodium Level 138 mmol/L Potassium Level 3.2 mmol/L Chloride Level 103 mmol/L Carbon Dioxide Level 23 mmol/L Anion Gap 12.0 mmol/L Blood Urea Nitrogen 20 mg/dl Creatinine 1.20 mg/dl Est Creatinine Clear Calc Drug Dose 29.4 ml/min Estimated GFR () 50.8 Estimated GFR (Non- 43.9 BUN/Creatinine Ratio 16.4 Random Glucose 96 mg/dl Calcium Level 9.5 mg/dl Assessment & Plan Encephalopathy - likely related to alcohol intoxication, in the setting of narcotic and benzodiazepine use - CT head was negative - resolved HTN - bp elevated - lisinopril started Alcohol intoxication - on admission - continue thiamine, folic acid and MVI Headache - had a recent head injury, requiring stitches to a scalp laceration - CT head and CTA head negative - improved Chest pain - troponin normal and EKG without ischemic changes - elevated d-dimer on admission - CT chest negative for PE - resolved Abdominal pain - resolved Chronic pain syndrome - continue outpatient morphine regimen Depression - psych consulted - Lexapro increased to 15mg - discontinue lorazepam COPD - uses Anora Ellipta and duo-neb as outpatient Lung nodule - noted on CT chest on admission - follow up CT in 3 months PT/OT recommending rehab. Pending acceptance. Consultants: Psychiatry Procedures: CT head Age-related change. No acute process. CTA head No significant stenosis, occlusion, or aneurysm within the [place]. CT chest 1. Study is negative for pulmonary embolus. 2. Nonspecific bibasilar interstitial prominence. 3. 12 mm pleural-based nodule medial aspect right upper lobe in a right para mediastinal location. Close follow-up is suggested. 4. Moderate to significant degenerative change thoracic spine Current Inpatient Medications: Current Inpatient Medications Medications (Trade) Dose Ordered Sig/Lan Route Start Time Stop Time Status Last Admin Dose Admin Acetaminophen (Tylenol Tab) 650 mg Q4H PRN PO 06/17/16 23:30 07/17/16 23:29 Nitroglycerin (Nitrostat Tab) 0.4 mg UD PRN SL 06/17/16 23:30 07/17/16 23:29 Ondansetron HCl (Zofran Inj) 4 mg Q6H PRN IV 06/17/16 23:30 07/17/16 23:29 06/18/16 14:58 4 MG Tramadol HCl (Ultram Tab) 25 mg Q6H PRN PO 06/17/16 23:30 07/17/16 23:29 06/18/16 14:56 25 MG Pantoprazole Sodium (Protonix Tab) 40 mg QAM PO 06/18/16 09:00 07/18/16 08:59 06/19/16 08:14 40 MG Miscellaneous Information (Order Awaiting Action) 1 ea QS N/A 06/18/16 08:00 07/18/16 07:59 Thiamine HCl (Vitamin B-1 Tab) 100 mg QAM PO 06/18/16 09:00 07/18/16 08:59 06/19/16 08:14 100 MG Multivitamins (Multivitamin Tab) 1 tab QAM PO 06/18/16 09:00 07/18/16 08:59 06/19/16 08:12 1 TAB Folic Acid (Folvite Tab) 1 mg QAM PO 06/18/16 09:00 07/18/16 08:59 06/19/16 08:11 1 MG Ioversol (Optiray 320) 100 ml UD PRN IV 06/18/16 00:15 06/22/16 00:14 Lisinopril (Zestril Tab) 2.5 mg QAM PO 06/19/16 09:00 07/19/16 08:59 06/19/16 08:13 2.5 MG Morphine Sulfate (MoRPHine SULFATE IR TAB) 30 mg Q8 PRN PO 06/18/16 15:00 07/02/16 14:59 06/19/16 13:18 30 MG Escitalopram Oxalate 15 mg 15 mg DAILY PO 06/19/16 09:00 07/19/16 08:59 06/19/16 08:13 15 MG Potassium Chloride/Sodium Chloride (Nss + 20meq KCl 1000ml) 1,000 ml @ 60 mls/hr [id number] ONCE IV 06/19/16 02:45 06/19/16 19:24 06/19/16 04:22 60 MLS/HR Hydroxyzine HCl (Vistaril Tab) 25 mg Q6 PRN PO 06/19/16 09:00 07/19/16 08:59 06/19/16 12:21 25 MG
[2016-06-20] VITALS (7 sets, daily range): BP systolic 108–132; BP diastolic 67–81; PULSE 20–81; TEMP 36.6–37; O2SAT 90–93
[2016-06-20 07:34] LABS: HEMATOCRIT 43.8 % (37-47); MEAN CELL VOLUME 86.9 fL (80-100); MEAN CORPUSCULAR HEMOGLOBIN 30.4 pg (25-34); MEAN CORPUSCULAR HGB CONC 34.9 g/dl (32-36); MEAN PLATELET VOLUME 9.8 fL (7.4-10.4); PLATELET COUNT 618 K/uL (130-400); RED BLOOD COUNT 5.04 M/uL (4.2-5.4); WHITE BLOOD COUNT 13.58 K/uL (4.8-10.8)
[2016-06-20 08:12] LABS: BUN/CREATININE RATIO 12.2 (10-20); CALCIUM 9.9 mg/dl (8.5-10.1); CREATININE 1.3 mg/dl (0.60-1.20); MAGNESIUM 1.7 mg/dl (1.8-2.4); POTASSIUM 3.8 mmol/L (3.5-5.1)
[2016-06-20] MEDS: ESCITALOPRAM OXALATE 10 MG TAB PO SCH (08:51)
[2016-06-20] MEDS: THIAMINE HCL 100 MG TAB PO SCH (08:52)
[2016-06-20] MEDS: PANTOprazole SOD 40 MG TAB PO SCH (08:52)
[2016-06-20] MEDS: MULTIVITAMIN TAB PO SCH (08:52)
[2016-06-20] MEDS: LISINOPRIL 2.5 MG TAB PO SCH (08:53)
[2016-06-20] MEDS ORDERED: MULTIVITAMIN TAB PO SCH (09:00)
[2016-06-20] MEDS: MoRPHine SULFATE IR 15 MG TAB (IMMEDIATE RELEASE) PO PRN ×2 (09:00→18:13)
[2016-06-20 13:18] LABS: COD UR NEGATIVE NG/ML (CUTOFF=50); HYDROCOD UR NEGATIVE NG/ML (CUTOFF=50); HYDROMOR UR 93 NG/ML (CUTOFF=50); MORPHINE UR 3040 NG/ML (CUTOFF=50); NORHYDROCODONE CONF UR NEGATIVE NG/ML (CUTOFF=50); OXYMORPH UR NEGATIVE NG/ML (CUTOFF=50)
--- NOTE | 2016-06-20 16:51 | Progress Note ---
Medicine Progress Note Date & Time of Visit: Jun 20, 2016 at 16:49. Subjective Patient seen and examined. Feeling well today without complaints. Objective Last 8 Hrs Date Time Temp Pulse Resp B/P Pulse Ox O2 Delivery O2 Flow Rate FiO2 06/20/16 14:58 37.0 69 18 108/67 91 Room Air 06/20/16 12:21 36.6 66 20 128/77 90 Room Air 06/20/16 12:00 Room Air Physical Exam: General-awake; alert; NAD Eyes-EOMI; no scleral icterus Neck-no stridor; trachea midline Lungs-CTA bilaterally; no wheezes/crackles Heart-RRR; no m/r/g Abdomen-soft; NTND; nBS Extremities-no c/c/e; no deformity Neuro-no gross focal deficits Laboratory Results: Last 24 Hours Test 06/20/16 06:42 White Blood Count 13.58 K/uL Red Blood Count 5.04 M/uL Hemoglobin 15.3 g/dL Hematocrit 43.8 % Mean Corpuscular Volume 86.9 fL Mean Corpuscular Hemoglobin 30.4 pg Mean Corpuscular Hemoglobin Concent 34.9 g/dl RDW Standard Deviation 45.8 fL RDW Coefficient of Variation 14.4 % Platelet Count 618 K/uL Mean Platelet Volume 9.8 fL Sodium Level 141 mmol/L Potassium Level 3.8 mmol/L Chloride Level 104 mmol/L Carbon Dioxide Level 27 mmol/L Anion Gap 10.0 mmol/L Blood Urea Nitrogen 16 mg/dl Creatinine 1.30 mg/dl Est Creatinine Clear Calc Drug Dose 27.8 ml/min Estimated GFR () 46.2 Estimated GFR (Non- 39.8 BUN/Creatinine Ratio 12.2 Random Glucose 87 mg/dl Calcium Level 9.9 mg/dl Magnesium Level 1.7 mg/dl Assessment & Plan Encephalopathy - likely related to alcohol intoxication, in the setting of narcotic and benzodiazepine use - CT head was negative - resolved HTN - bp improved - lisinopril started Alcohol intoxication - on admission - continue thiamine, folic acid and MVI Headache - had a recent head injury, requiring stitches to a scalp laceration - CT head and CTA head negative - improved Chest pain - troponin normal and EKG without ischemic changes - elevated d-dimer on admission - CT chest negative for PE - resolved Abdominal pain - resolved Chronic pain syndrome - continue outpatient morphine regimen Depression - psych consulted - Lexapro increased to 15mg - discontinued lorazepam COPD - uses Anora Ellipta and duo-neb as outpatient Lung nodule - noted on CT chest on admission - follow up CT in 3 months PT/OT recommending rehab. Pending acceptance to [facility]. Consultants: Psychiatry Procedures: CT head Age-related change. No acute process. CTA head No significant stenosis, occlusion, or aneurysm within the [place] of [place]. CT chest 1. Study is negative for pulmonary embolus. 2. Nonspecific bibasilar interstitial prominence. 3. 12 mm pleural-based nodule medial aspect right upper lobe in a right para mediastinal location. Close follow-up is suggested. 4. Moderate to significant degenerative change thoracic spine Current Inpatient Medications: Current Inpatient Medications Medications (Trade) Dose Ordered Sig/Lan Route Start Time Stop Time Status Last Admin Dose Admin Acetaminophen (Tylenol Tab) 650 mg Q4H PRN PO 06/17/16 23:30 07/17/16 23:29 Nitroglycerin (Nitrostat Tab) 0.4 mg UD PRN SL 06/17/16 23:30 07/17/16 23:29 Ondansetron HCl (Zofran Inj) 4 mg Q6H PRN IV 06/17/16 23:30 07/17/16 23:29 06/18/16 14:58 4 MG Tramadol HCl (Ultram Tab) 25 mg Q6H PRN PO 06/17/16 23:30 07/17/16 23:29 06/18/16 14:56 25 MG Pantoprazole Sodium (Protonix Tab) 40 mg QAM PO 06/18/16 09:00 07/18/16 08:59 06/20/16 08:52 40 MG Miscellaneous Information (Order Awaiting Action) 1 ea QS N/A 06/18/16 08:00 07/18/16 07:59 Thiamine HCl (Vitamin B-1 Tab) 100 mg QAM PO 06/18/16 09:00 07/18/16 08:59 06/20/16 08:52 100 MG Multivitamins (Multivitamin Tab) 1 tab QAM PO 06/18/16 09:00 07/18/16 08:59 06/20/16 08:52 1 TAB Folic Acid (Folvite Tab) 1 mg QAM PO 06/18/16 09:00 07/18/16 08:59 06/20/16 08:52 1 MG Ioversol (Optiray 320) 100 ml UD PRN IV 06/18/16 00:15 06/22/16 00:14 Lisinopril (Zestril Tab) 2.5 mg QAM PO 06/19/16 09:00 07/19/16 08:59 06/20/16 08:53 2.5 MG Morphine Sulfate (MoRPHine SULFATE IR TAB) 30 mg Q8 PRN PO 06/18/16 15:00 07/02/16 14:59 06/20/16 09:00 30 MG Escitalopram Oxalate (Lexapro Tab) 15 mg DAILY PO 06/19/16 09:00 07/19/16 08:59 06/20/16 08:51 15 MG Hydroxyzine HCl (Vistaril Tab) 25 mg Q6 PRN PO 06/19/16 09:00 07/19/16 08:59 06/19/16 12:21 25 MG
[2016-06-20] MEDS: TRAMADOL HCL 50 MG TAB PO PRN (21:34)
[2016-06-21] MEDS: MoRPHine SULFATE IR 15 MG TAB (IMMEDIATE RELEASE) PO PRN (02:23)
[2016-06-21 04:00] VITALS: BP 118/76; PULSE 59; TEMP 36.8; O2SAT 92
[2016-06-21 05:58] LABS: HEMATOCRIT 43.2 % (37-47); MEAN CELL VOLUME 87.6 fL (80-100); MEAN CORPUSCULAR HGB CONC 34.3 g/dl (32-36); MEAN PLATELET VOLUME 9.8 fL (7.4-10.4); PLATELET COUNT 559 K/uL (130-400); RED BLOOD COUNT 4.93 M/uL (4.2-5.4); WHITE BLOOD COUNT 14.99 K/uL (4.8-10.8)
[2016-06-21 06:35] LABS: BUN/CREATININE RATIO 18.2 (10-20); CALCIUM 9.3 mg/dl (8.5-10.1); CREATININE 1.2 mg/dl (0.60-1.20); MAGNESIUM 1.6 mg/dl (1.8-2.4); POTASSIUM 4.5 mmol/L (3.5-5.1)
[2016-06-21 08:00] VITALS: BP 95/58; PULSE 77; TEMP 36.7; O2SAT 90
[2016-06-21] MEDS: PANTOprazole SOD 40 MG TAB PO SCH (08:27)
[2016-06-21] MEDS: THIAMINE HCL 100 MG TAB PO SCH (08:28)
[2016-06-21] MEDS: MULTIVITAMIN TAB PO SCH (08:28)
[2016-06-21] MEDS: ESCITALOPRAM OXALATE 10 MG TAB PO SCH (08:29)
[2016-06-21] MEDS: LISINOPRIL 2.5 MG TAB PO SCH (08:30)
[2016-06-21] MEDS ORDERED: MAGNESIUM OXIDE 400 MG TAB PO SCH (09:00)
[2016-06-21] MEDS ORDERED: LSN25 PO (10:20)
[2016-06-21] MEDS ORDERED: ESCI10TA17 PO (10:20)
[2016-06-21] MEDS ORDERED: MGNO400 PO (10:20)
[2016-06-21] MEDS ORDERED: MORP30TA23 PO (10:20)
--- NOTE | 2016-06-21 10:26 | Discharge Instructions ---
Discharge Instructions Admission Reason for Admission: Chest Pain, Encephalopathy Discharge Discharge Diagnosis / Problem: Alcohol intoxication Discharge Goals Goal(s): Increase independence Activity Recommendations Activity Limitations: resume your previous activity . Instructions / Follow-Up Instructions / Follow-Up Please keep your scheduled mental health appointment with Dr. Moses on June 29 at 3pm. Please follow up with Family Medicine Dr. Ortega within one week of discharge from the [facility]. Current Hospital Diet Patient's current hospital diet: AHA Diet (Heart Healthy) Discharge Diet Recommended Diet: AHA Diet (Heart Healthy) Pending Studies Studies pending at discharge: no Medical Emergencies . Who to Call and When: Medical Emergencies: If at any time you feel your situation is an emergency, please call 911 immediately. . Non-Emergent Contact Non-Emergency issues call your: Primary Care Provider . . "Provider Documentation" section prepared by Britta Nieves. VTE Core Measure Inpt VTE Proph given/why not?: [place]CD[place] Drug Monitoring Program Search Results: patient reviewed within database Drug Monitoring Findings: Patient has frequent fillings of morphine. She is also prescribed lorazepam and Ambien. Patient does have prescriptions from multiple providers. Would recommend patient signing pain contract if not already done.
[2016-06-21 10:36] VITALS: BP 95/58; PULSE 77; TEMP 36.7; O2SAT 90
[2016-06-21 12:35] VITALS: BP 110/64; PULSE 83; TEMP 36.8; O2SAT 91
--- NOTE | 2016-06-21 17:32 | Discharge Summary ---
Discharge Summary Date of Service Jun 21, 2016. Discharge Summary Admission Date: Jun 17, 2016 at 22:57 Discharge Date: Jun 21, 2016 Discharge Disposition: Rehab Principal Diagnosis: Alcohol intoxication Procedures: CT head Age-related change. No acute process. CTA head No significant stenosis, occlusion, or aneurysm within the [place]. CT chest 1. Study is negative for pulmonary embolus. 2. Nonspecific bibasilar interstitial prominence. 3. 12 mm pleural-based nodule medial aspect right upper lobe in a right para mediastinal location. Close follow-up is suggested. 4. Moderate to significant degenerative change thoracic spine Consultations: Psychiatry Medication Reconciliation New Medications: Lisinopril (Lisinopril) 2.5 Mg Tab 2.5 MG PO QAM for 30 Days, #30 TAB Magnesium Oxide (Magnesium-Oxide) 400 Mg Tab 400 MG PO QAM for 30 Days, #30 TAB Changed Medications: Escitalopram (Lexapro) 10 Mg Tab 15 MG PO DAILY for 30 Days, #45 TAB 0 Refills (Changed from: 10 MG) Morphine Sulfate (Ms Contin) 30 Mg Tabcr 30 MG PO Q8 PRN for Pain for 7 Days, #21 TAB (Changed from: 15; 5) Continued Medications: Atorvastatin (Lipitor) 10 Mg Tab 10 MG PO DAILY, TAB Calcitriol (Rocaltrol Cap) 0.25 Mcg Cap 0.25 MCG PO 3XWK, CAP TAKE SATURDAY, SATURDAY, SATURDAY Fish Oil ([place]-3) 1 Ea Cap 2 CAP PO DAILY, 0 Refills Gabapentin (Neurontin *) 600 Mg Cap 600 MG PO BID, 0 Refills Glucosamine Sulfate (Glucosamine Unknown Dose) Tab 2 TABS PO DAILY Ipratropium-Albuterol (Duoneb) 3 Ml Nebu 3 ML INH Q6R PRN for SOB/Wheezing for 30 Days Multivitamin (Multivitamin) Tab 1 TAB PO DAILY, 0 Refills Omeprazole (Prilosec) 20 Mg Capcr 20 MG PO DAILY, 0 Refills Umeclidinium-Vilanterol (Anoro Ellipta 62.5-25 Mcg/INH) 1 Aer Aer 1 PUFF INH DAILY Discontinued Medications: Lorazepam (Ativan *) 0.5 Mg Tab 0.5 MG PO QPM PRN for Anxiety/Insomnia, #D 0 Refills Admission Information HPI (per Admitting provider): Medical history significant for a nonsmall cell lung cancer on the left sp surgery, chemoradiation in 2003, left adrenal adenoma status post adrenalectomy, COPD, past tobacco abuse as per records, chronic pain on narcotics, tubulovillous adenoma status post laparoscopic resection. depression as per daughter. Recent confinement last April 2016 for COPD exacerbation, anxiety. Patient discharged home. Patient seen at the Emergency Room about 2 weeks ago for mechanical fall. Patient had scalp laceration repaired. Patient subsequently sent home. Seen at PCP's office on followup a few days ago. Started on prednisone course for possible dermatitis. Of note transient hypoxemia at the office, 86 to 92. Discussion about possible reactive depression. Outpx Psychiatry referral contemplated. Patient complained to daughter of the "worst headache" the last few days. No nausea, no vomiting. Home BP not known. Px refused to go to the ER. Last night the patient was found by daughter at home to be disoriented and minimally responsive. Patient walked into her own closet instead of the bathroom. EMS called. Patient brought to the Emergency Room. Had to be given Ativan for agitation. At the Emergency Room, when px answered "yes, yes" to queries about about chest pain, shortness of breath and abdominal pain sx. Physical Exam (per Admitting): VS BP 177.100, AL 92 RR 24 T 37 O2 97RA GENERAL: Agitated, strapped to the stretcher, disoriented. Alcoholic fetor. SKIN : normal color HEENT: [place] palpebral conjunctivae. Dry mucosa. NECK: No JVD. supple CHEST: Decreased effort. HEART: Tachycardic. ABDOMEN: Soft, minimal distention. EXTREMITIES: No edema. no tenderness NEUROLOGIC: agitated. disoriented Hospital Course Patient was admitted with encephalopathy, likely related to alcohol intoxication , in the setting of narcotic and benzodiazepine use. CT head was negative. Encephalopathy resolved. Patient received thiamine, folic acid and MVI during hospitalization and was continued on MVI on discharge. Patient had a headache on admission. CT head and CTA head were negative. Headache resolved. Patient did c/o chest pain on admission. Troponin was normal and EKG did not show any ischemic changes. D-dimer was elevated. CT chest was negative for PE but did show incidental lung nodule. A repeat CT chest in 3 months is recommended. Patient had no further chest pain during hospitalization. Patient was continued on her outpatient morphine for chronic pain syndrome. [place] drug prescription monitoring database was queried and patient does have frequent fills of morphine and does receive prescriptions from several providers. Would recommend that patient sign pain contract with PCP if not already done. Psychiatry was consulted for depression. Lexapro was increased to 15mg. Lorazepam was discontinued. Patient's blood pressure was elevated on admission. Low dose lisinopril was started and patient's blood pressure improved. Patient was continued on the remainder of her medications with the exceptions noted above. PT/OT evaluations recommended rehab upon discharge. Patient deemed stable for discharge to rehab. PE on discharge: General- awake; alert; NAD Eyes- EOMI; no scleral icterus Neck- no stridor; trachea midline Lungs- CTA bilaterally; no wheezes/crackles Heart- RRR Abdomen- soft; NTND; nBS Back- no gross abnormalities Extremities- no c/c/e; no deformity Neuro- no gross focal deficits Skin- no appreciable rash . Total time spent on discharge = This includes examination of the patient, discharge planning, medication reconciliation, and communication with other providers. Discharge Instructions Discharge Instructions Admission Reason for Admission: Chest Pain, Encephalopathy Discharge Discharge Diagnosis / Problem: Alcohol intoxication Discharge Goals Goal(s): Increase independence Activity Recommendations Activity Limitations: resume your previous activity . Instructions / Follow-Up Instructions / Follow-Up Please keep your scheduled mental health appointment with Dr. Moses on June 29 at 3pm. Please follow up with Family Medicine Dr. Ortega within one week of discharge from the [facility]. Current Hospital Diet Patient's current hospital diet: AHA Diet (Heart Healthy) Discharge Diet Recommended Diet: AHA Diet (Heart Healthy) Pending Studies Studies pending at discharge: no Medical Emergencies . Who to Call and When: Medical Emergencies: If at any time you feel your situation is an emergency, please call 911 immediately. . Non-Emergent Contact Non-Emergency issues call your: Primary Care Provider . . "Provider Documentation" section prepared by Britta Nieves. VTE Core Measure Inpt VTE Proph given/why not?: [place] Drug [place] Search Results: patient reviewed within database Drug Monitoring Findings: Patient has frequent fillings of morphine. She is also prescribed lorazepam and Ambien. Patient does have prescriptions from multiple providers. Would recommend patient signing pain contract if not already done. Additional Copies To Ron Ortega MD
[2016-12-28] MEDS ORDERED: OXGN (14:54)
[2016-12-28] MEDS ORDERED: LXP/10 PO (14:54)
[2016-12-28] MEDS ORDERED: MORP30TA PO (14:54)
[2016-12-28] MEDS ORDERED: MRPSR30 PO (14:54)
[2017-01-25] MEDS ORDERED: GABA600T PO (14:20)
[2017-01-25] MEDS ORDERED: GLUCOSAMINE SULFATE PO (14:20)
== END 2016-06-21 13:55 | DRG 897 ==
LOC: ENRESERVDT → ENRESERVTM → EDBD 19:39 → C.EDB 19:40 → C.MED 22:57
PROVIDERS: ADMIT Internal Medicine; ATTEND Internal Medicine
DX: F10.129 Alcohol abuse with intoxication, unspecified (principal); E89.6 Postprocedural adrenocortical (-medullary) hypofunction; J44.9 Chronic obstructive pulmonary disease, unspecified; F41.9 Anxiety disorder, unspecified; F32.9 Major depressive disorder, single episode, unspecified; Z87.891 Personal history of nicotine dependence; G89.4 Chronic pain syndrome; Z85.118 Personal history of other malignant neoplasm of bronchus and lung; Z79.899 Other long term (current) drug therapy; Z79.52 Long term (current) use of systemic steroids; Z88.5 Allergy status to narcotic agent; Z88.0 Allergy status to penicillin; Z88.4 Allergy status to anesthetic agent; Z90.81 Acquired absence of spleen; Z90.49 Acquired absence of other specified parts of digestive tract; Z78.1 Physical restraint status; Z82.49 Family history of ischemic heart disease and other diseases of the circulatory system; Z80.9 Family history of malignant neoplasm, unspecified; Z83.6 Family history of other diseases of the respiratory system; Z81.1 Family history of alcohol abuse and dependence; Z81.8 Family history of other mental and behavioral disorders; R91.1 Solitary pulmonary nodule; I10 Essential (primary) hypertension; Y90.6 Blood alcohol level of 120-199 mg/100 ml

== ENCOUNTER 2016-06-27 15:05 | Emergency (ER) | payer BC, OTHER ==
[~2016-06-27] VITALS: Ht 154.9 cm; Wt 53.5 kg
[~2016-06-27 15:05] MED LIST changes: -ATV5 PO; +CALC0.2510 PO; +LSN25 PO; +MGNO400 PO; -PSYLCAP5 PO; -SPRIN/30 INH
[2016-06-27 15:09] VITALS: TEMP 37.3; Ht 154.9 cm; Wt 53.5 kg
--- NOTE | 2016-06-27 17:17 | EMERGENCY ROOM VISIT NOTE ---
History Report prepared by Dora: Adeel Leon Under the Supervision of: Dr. Layo العراقي D.O. First contact with patient: 16:26 Chief Complaint: REFERRED BY DOCTOR Stated Complaint: REFERRED BY DOCTOR History of Present Illness The patient is a 76 year old female who was referred to the Emergency Room for worsening pulmonary function test results. The patient had a pulmonary function test with [facility] earlier today. Her saturation dropped as low as 84% during the test. The patient states that she usually falls in the 88-89 range. Her primary care doctor, Dr. Ortega, referred her to the ED. The patient otherwise feels normal. She denies any chest pain. She has the pulmonary function tests due to a history of COPD and adenocarcinoma. The patient notes that she was falling asleep during the pulmonary function test, which is unusual. Source of History: patient, transfer records Onset: today Position: other (respiratory) Symptom Intensity: 84% Quality: other (low oxygen saturation) Timing: worsening Associated Symptoms: No chest pain Review of Systems See HPI for pertinent positives & negatives. A total of 10 systems reviewed and were otherwise negative. Past Medical & Surgical Medical Problems: (1) Adenocarcinoma of lung (2) Chest pain (3) Chronic pain (4) Chronic pain syndrome (5) COPD exacerbation (6) Depression (7) Disorder of electrolytes (8) Encephalopathy (9) Gastroesophageal reflux disease Family History Cancer Lung disease Social History Smoking Status: Current Some Day Smoker Alcohol Use: none Drug Use: none Marital Status: single Current/Historical Medications Scheduled Atorvastatin (Lipitor), 10 MG PO DAILY Calcitriol (Rocaltrol Cap), 0.25 MCG PO 3XWK Escitalopram (Lexapro), 15 MG PO DAILY Fish Oil ([place]-3), 2 CAP PO DAILY Gabapentin (Neurontin *), 600 MG PO BID Glucosamine Sulfate (Glucosamine Unknown Dose), 2 TABS PO DAILY Lisinopril (Lisinopril), 2.5 MG PO QAM Magnesium Oxide (Magnesium-Oxide), 400 MG PO QAM Multivitamin (Multivitamin), 1 TAB PO DAILY Omeprazole (Prilosec), 20 MG PO DAILY Umeclidinium-Vilanterol (Anoro Ellipta 62.5-25 Mcg/INH), 1 PUFF INH DAILY Scheduled PRN Ipratropium-Albuterol (Duoneb), 3 ML INH Q6R PRN for SOB/Wheezing Morphine Sulfate (Ms Contin), 30 MG PO Q8 PRN for Pain Allergies Coded Allergies: Codeine (Verified Allergy, Unknown, 06/17/16) Penicillins (Unverified Allergy, Unknown, hives, 06/17/16) Procaine (Verified Allergy, Unknown, SWELLING, 06/17/16) Physical Exam Vital Signs Date Time Temp Pulse Resp B/P Pulse Ox O2 Delivery O2 Flow Rate FiO2 06/27/16 16:33 88 Room Air 06/27/16 16:26 68 12 108/58 96 Nasal Cannula 3.0 06/27/16 15:15 Nasal Cannula 2.0 06/27/16 15:09 37.3 73 16 80/46 90 Room Air Physical Exam CONSTITUTIONAL/VITAL SIGNS: Reviewed / noted above. GENERAL: Non-toxic in appearance. INTEGUMENTARY: Warm, dry, and [place]. HEAD: Normocephalic. EYES: without scleral icterus or trauma. ENT/OROPHARYNX: clear and moist. LYMPHADENOPATHY/NECK: Is supple without lymphadenopathy or meningismus. RESPIRATORY: Lungs clear and equal. CARDIOVASCULAR: Regular rate and rhythm. GI/ABDOMEN: Soft and nontender. No organomegaly or pulsatile mass. No rebound or guarding. Normal bowel sounds. EXTREMITIES: Warm and well perfused. BACK: No CVA tenderness. NEUROLOGICAL: Intact without focal deficits. PSYCHIATRIC: normal affect. MUSCULOSKELETAL: Normally developed with good muscle tone. Medical Decision & Procedures ED Course 163: Previous medical records were reviewed. The patient was evaluated in room A9b. A complete history and physical examination was performed. 1649: Spoke with Dr. Ortega. He referred the patient to the ED because she was falling asleep during the pulmonary tests. 1654: Reassessed the patient. She is okay with going home. Medical Decision Differential includes acute coronary syndrome, myocardial infarction, CVA, TIA, anemia, infection, pneumonia, UTI, pyelonephritis, poor nutrition, dehydration, electrolyte disturbance,hypoglycemia. This is a 76-year-old female who presents to the ED with a chief complaint of drowsiness during a pulmonary exam today. The patient had the pulmonary exam and was falling asleep during parts of the exam. The patient was sent here for evaluation. The patient is now awake, alert and oriented. She has no complaints. Her daughter is with her and states that she is acting normally at this time. Her physical exam was unremarkable. She denies any complaints. She is felt to be stable for discharge and outpatient follow-up. I did speak with Dr. Ortega about the patient. The patient is on a number of medications that can cause her drowsiness. He is going to see her tomorrow for reevaluation. Consults Time Called: 1644 Consulting Physician: Dr. Ortega. Returned Call: 1649 1650: Spoke with Dr. Ortega. He referred the patient to the ED because she was falling asleep during the pulmonary tests. Impression Primary Impression: Drowsiness Scribe Attestation The scribe's documentation has been prepared under my direction and personally reviewed by me in its entirety. I confirm that the note above accurately reflects all work, treatment, procedures, and medical decision making performed by me. Departure Information Dispostion Home / Self-Care Referrals No Doctor, Assigned (PCP) Patient Instructions My [facility] Additional Instructions Follow-up with your doctor tomorrow for recheck. Return for any concerns.
[2016-06-27 17:51] VITALS: BP 135/79; PULSE 78; O2SAT 92
[2016-12-28] MEDS ORDERED: MRPSR30 PO (14:54)
[2016-12-28] MEDS ORDERED: LXP/10 PO (14:54)
[2016-12-28] MEDS ORDERED: OXGN (14:54)
[2016-12-28] MEDS ORDERED: MORP30TA PO (14:54)
[2017-01-25] MEDS ORDERED: GLUCOSAMINE SULFATE PO (14:20)
[2017-01-25] MEDS ORDERED: GABA600T PO (14:20)
== END 2016-06-27 17:52 | disposition home or self-care (01) ==
LOC: C.EDB 15:08 → C.EDA 17:52
DX: R40.0 Somnolence (principal); J44.9 Chronic obstructive pulmonary disease, unspecified; C34.90 Malignant neoplasm of unspecified part of unspecified bronchus or lung; K21.9 Gastro-esophageal reflux disease without esophagitis; F32.9 Major depressive disorder, single episode, unspecified; F17.200 Nicotine dependence, unspecified, uncomplicated; Z79.899 Other long term (current) drug therapy

== ENCOUNTER → 2016-09-19 | Outpatient (CLI) | payer BC ==
[~2016-09-19] MED LIST changes: +ATOR10TA82 PO; -ATOR10TA88 PO; +GABA600T PO; +GLUCOSAMINE SULFATE PO; +LXP/10 PO; +MORP30TA PO; +MRPSR30 PO; +OXGN
--- NOTE | 2016-09-19 14:08 | DIAGNOSTIC IMAGING REPORT ---
CHEST CT WITHOUT CONTRAST CT DOSE: 191.46 mGy.cm HISTORY: Pulmonary nodule X TECHNIQUE: Multiaxial CT images of the chest were performed without contrast. COMPARISON: 06/18/2016 FINDINGS: Mild emphysematous change. No focal infiltrative change. Slight interstitial change in a similar pattern to prior. No consolidative infiltrates. Nodular density at the anterior pericardial region medial aspect right upper lobe has diminished from 12 to 8 mm. This diminishes the possibility of a developing lesion. This presumably is atelectatic in nature. IMPRESSION: Improved exam. Nodular density medial right upper lobe has diminished from 12 to 8 mm highly suggestive of a benign etiology. A 1 year follow-up is felt to be sufficient. Electronically signed by: Jian Lo M.D. 09/19/2016 2:07 PM Dictated Date/Time: 09/19/2016 2:01 PM
== END | disposition home or self-care (01) ==
LOC: C.CTS 13:44
PROVIDERS: ATTEND Internal Medicine
DX: R91.1 Solitary pulmonary nodule (principal)

== ENCOUNTER → 2017-01-16 | Day surgery (SDC) | payer BC ==
[2016-12-28 14:56] VITALS: Ht 158.8 cm; Wt 51.8 kg
[~2017-01-16] VITALS: Ht 158.8 cm; Wt 51.8 kg
[~2017-01-16] MED LIST changes: +500ML BSS 0.3ML EPI 1:1000PF IRRIG ONE; +ACETAMINOPHEN 325 MG TAB PO PRN; +AMVISC PLUS 0.8ML SYRINGE INT OCU ONE; -ATOR10TA82 PO; +ATOR10TA88 PO; +ATROPINE SULFATE 0.1 MG/ML 5ML SYR IV PRN; +BSS FLUSH ONE; -CALC0.2510 PO; +ENDOCOAT 0.85ML SYRINGE INT OCU ONE; -ESCI10TA17 PO; +EpHEDrine SULFATE INJ 50 MG/ML AMP IV PRN; +EpINEphrine INJ 1MG/ML AMP 1 MG/ML AMP ONE; -IPRASOL4 INH; +LACTATED RINGER'S 1000ML 500 ML IV SCH; +LIDOCAINE 4% OP SOLN DROP CHARGE ONE; +LIDOCAINE 4% OP SOLN DROP CHARGE OPR SCH; +LIDOCAINE HCL 1% MPF 2 ML VIAL ONE; -LSN25 PO; -MGNO400 PO; +MIDAZOLAM HCL 1 MG/ML 2ML VIAL ONE; +MIX: 4ML BSS 1ML EPI 1:1000 PF TOP ONE; -MORP30TA23 PO; +MOXIFLOXACIN OPH SOLN PER DROP CHARGE ONE; +POVIDONE-IODINE OP SOLN 30 ML BTL ONE; +PROPARACAINE 0.5% OP SOLN PER DROP CHARGE OPR SCH; +TOBRAMYCIN/DEXAMETHASONE OPH OINT PER APPLN CHARGE ONE
--- NOTE | 2017-01-16 10:34 | History & Physical Bridge - [place] ---
H&P Re-Evaluation Bridge Note: I have examined the patient, reviewed the History & Physical and in the interval since the performance of the History & Physical I have noted the following changes of clinical significance: No changes noted
[2017-01-16] MEDS: CYCLOPENTOLATE HCL 1% OP SOLN PER DROP CHARGE OPR SCH ×6 (10:52→11:11)
[2017-01-16] MEDS: PHENYLEPHRINE HCL 10% OP SOLN PER DROP CHARGE OPR SCH ×3 (10:55→11:00)
[2017-01-16] MEDS: TROPICAMIDE 1% OP SOLN PER DROP CHARGE OPR SCH ×5 (10:55→11:10)
[2017-01-16] MEDS: MOXIFLOXACIN OPH SOLN PER DROP CHARGE OPR SCH ×6 (10:56→11:11)
[2017-01-16] MEDS: PHENYLEPHRINE HCL 2.5% OP SOLN PER DROP CHARGE OPR SCH ×3 (11:05→11:10)
--- NOTE | 2017-01-16 11:48 | [facility] Post Operative Brief Note ---
Immediate Operative Summary Operative Date Jan 16, 2017. Pre-Operative Diagnosis Cataract Right Eye Post-Operative Diagnosis Same as pre-op Procedure(s) Performed Right Cataract Phacoemulsification With Intraocular Lens Implant Surgeon Dr. White Metallurgical Engineering Technician Surgeon(s) None Estimated Blood Loss 0ml Findings right cataract Specimens None Complication(s) None Disposition
--- NOTE | 2017-01-16 11:49 | [facility] Operative Report ---
Operative Report Date of Service Jan 16, 2017. Operative Report Phaco with monofocal IOL DATE OF OPERATION: 01/16/17 PREOPERATIVE DIAGNOSIS: Senile nuclear cataract, right eye POSTOPERATIVE DIAGNOSIS: Senile nuclear cataract, right eye PROCEDURE PERFORMED: Phacoemulsification with intraocular lens implantation, right eye SURGEON: Dr. Mark White ANESTHESIA: Topical with 1% intracameral lidocaine and monitored anesthesia care COMPLICATIONS: None DESCRIPTION OF PROCEDURE: After positively identifying the patient both verbally and by wristband in the preoperative area, the right eye was marked as the operative eye. The patient was then brought back to the operating room by the anesthesia and nursing staff where they were given a drop of Lidocaine and betadine into the operative eye. They were then sterilely prepped and draped in the standard fashion typical for ophthalmic surgery. Steri-strips were placed along the upper eyelids to keep the lashes back, and a lid speculum was placed into the operative eye. At this point, a documented time out was performed with members of the ophthalmology, nursing, and anesthesia staffs all agreeing upon the correct patient, correct location for surgery, correct procedure, and correct type and power of intraocular lens to be implanted. The microscope was then swung into position. First, a paracentesis wound was made using a sideport blade. Then, in sequence, 1% preservative-free lidocaine followed by Endocoat viscoelastic was injected into the anterior chamber. Next , the main incision was made with a keratome blade in triplanar fashion. A sharp cystotome was introduced into the eye and used to create a tear in the anterior capsule, which was directed into a continuous curvilinear capsulorrhexis using Utrata forceps. Hydrodissection was then performed with BSS on a flat-tip cannula. Next, the phacoemulsification handpiece was introduced into the eye and used to remove the nucleus in a vfusal-yfh-axjtpow fashion. This was done without complication and then the irrigation-aspiration handpiece was introduced into the eye and used to remove all remaining cortical and epinuclear material. Amvisc was then injected into the anterior chamber as well as into the capsular bag and using the lens injector system, an MX60 22.5 D lens, serial number [id number], and expiration date 08/2019 was injected into the capsular bag and rotated into the correct position. Next, the irrigation- aspiration handpiece was used to remove all remaining Amvisc. BSS was used to hydrate the main wound, and then BSS was injected into the paracentesis site to reach physiologic pressure and then the main wound was checked and found to be watertight. The patient was given drops of Vigamox and Tobradex ointment into the operative eye, and then the surrounding area was cleaned and dried. A clear plastic shield was placed over the eye and the patient was then sat up and taken from the operating room by the anesthesia staff having tolerated the procedure well and suffering no complications. DISPOSITION: The patient was returned to the recovery room in stable condition. I attest to the content of the Intraoperative Record and any orders documented therein. Any exceptions are noted below.
[2017-01-16 11:50] VITALS: TEMP 36.7
--- NOTE | 2017-01-16 11:50 | Discharge Instructions-SurgCtr ---
Discharge Instructions Date of Service Jan 16, 2017. Visit Reason for Visit: Cataract Right Eye Discharge Discharge Diagnosis / Problem: right cataract Discharge Goals Goal(s): Decrease discomfort, Improve function Activity Recommendations Activity Limitations: as noted below Anesthesia . Post Anesthesia Instructions: If you have had General Anesthesia or IV Sedation: * Do not drive today. * Resume driving when surgeon permits. * Do not make important decisions or sign legal documents today. * Call surgeon for: 1. Temperature elevations greater than 101 degrees F. 2. Uncontrollable pain. 3. Excessive bleeding. 4. Persistent nausea and vomiting. 5. Medication intolerance (nausea, vomiting or rash). * For nausea and vomiting use only clear liquids such as: tea, soda, bouillon until nausea subsides, then gradually increase diet as tolerated. * If you have any concerns or questions, call your surgeon's office. If physician is unavailable and it is an emergency, call 911 or go to the nearest emergency room. . Instructions / Follow-Up Instructions / Follow-Up ACTIVITY RECOMMENDATIONS: * Light activities. * You may walk outside, read, watch television. * You may notice redness on the white part of the eye and some blurry vision - this is normal. MEDICATIONS: Resume previous medications unless instructed otherwise by your surgeon. Start all eye drops at 2 pm today: * Eye drops (today): Prednisone - one drop in operative eye every 2 hours while awake Ciprofloxacin - one drop in operative eye every 2 hours while awake Ilevro - one drop in operative eye daily SPECIAL CARE INSTRUCTIONS: * Tape plastic shield over eye to sleep at night. Call your doctor at with any concerns or problems. FOLLOW UP VISIT: Follow-up with Dr White at [place] office as scheduled. Diet Recommendations Home Diet: no limitations Procedures Procedures Performed: Right Cataract Phacoemulsification With Intraocular Lens Implant Pending Studies Studies pending at discharge: no Medical Emergencies . Who to Call and When: Medical Emergencies: If at any time you feel your situation is an emergency, please call 911 immediately. . Non-Emergent Contact Non-Emergency issues call your: Surgeon . . "Provider Documentation" section prepared by Mark White. .
[2017-01-16 12:09] VITALS: BP 135/78; PULSE 68; O2SAT 94
--- NOTE | 2017-01-16 12:14 | Anesthesia Progress Nt - [facility] ---
Anesthesia Post Op Note Date & Time Jan 16, 2017 at 12:14 Vital Signs Pain Intensity: 0 Vital Signs Past 12 Hours Date Time Temp Pulse Resp B/P (MAP) Pulse Ox O2 Delivery O2 Flow Rate FiO2 01/16/17 12:09 68 18 135/78 (97) 94 Room Air 01/16/17 11:50 36.7 68 18 109/69 (82) 91 Room Air 01/16/17 11:03 36.7 74 20 99/66 (77) 93 Room Air Notes Mental Status: alert / awake / arousable, participated in evaluation Pt Amnestic to Procedure: Yes Nausea / Vomiting: adequately controlled Pain: adequately controlled Airway Patency, RR, SpO2: stable & adequate BP & HR: stable & adequate Hydration State: stable & adequate Anesthetic Complications: no major complications apparent
== END | disposition home or self-care (01) ==
LOC: X.SURG 10:24
PROVIDERS: ATTEND Ophthalmology
DX: H25.11 Age-related nuclear cataract, right eye (principal); N18.3 Chronic kidney disease, stage 3 (moderate); J44.9 Chronic obstructive pulmonary disease, unspecified; E78.00 Pure hypercholesterolemia, unspecified; M81.0 Age-related osteoporosis without current pathological fracture; Z87.891 Personal history of nicotine dependence; I12.9 Hypertensive chronic kidney disease with stage 1 through stage 4 chronic kidney disease, or unspecified chronic kidney disease

== ENCOUNTER → 2017-01-30 | Day surgery (SDC) | payer BC ==
[2017-01-25 14:21] VITALS: Ht 158.8 cm; Wt 51.8 kg
[~2017-01-30] VITALS: Ht 158.8 cm; Wt 51.8 kg
[~2017-01-30] MED LIST changes: +FENTANYL CITRATE INJ 50 MCG/1 ML 2 ML VIAL IV PRN; +FLUMAZENIL 0.1 MG/1 ML 10 ML VIAL IV PRN; -GLCSUNK PO; +LABETALOL HCL IV 5 MG/ML 20ML IV PRN; +LIDOCAINE 4% OP SOLN DROP CHARGE OPL SCH; -LIDOCAINE 4% OP SOLN DROP CHARGE OPR SCH; +MEPERIDINE HCL 25 MG/ML CARP IV PRN; +NALOXONE HCL 0.4 MG/1 ML VIAL/CARP IV PRN; -NRN600 PO; +ONDANSETRON INJ 2 MG/ML 2 ML VIAL IV PRN; +PHENYLEPHRINE 100MCG/ML 5ML SYR IV PRN; +PROPARACAINE 0.5% OP SOLN PER DROP CHARGE OPL SCH; -PROPARACAINE 0.5% OP SOLN PER DROP CHARGE OPR SCH
[2017-01-30] MEDS: PHENYLEPHRINE HCL 2.5% OP SOLN PER DROP CHARGE OPL SCH ×3 (07:40→07:50)
[2017-01-30] MEDS: TROPICAMIDE 1% OP SOLN PER DROP CHARGE OPL SCH ×3 (07:41→07:51)
[2017-01-30] MEDS: CYCLOPENTOLATE HCL 1% OP SOLN PER DROP CHARGE OPL SCH ×3 (07:42→07:52)
[2017-01-30] MEDS: MOXIFLOXACIN OPH SOLN PER DROP CHARGE OPL SCH ×3 (07:43→07:53)
--- NOTE | 2017-01-30 08:45 | [facility] Post Operative Brief Note ---
Immediate Operative Summary Operative Date Jan 30, 2017. Pre-Operative Diagnosis Left Eye Cataract Post-Operative Diagnosis same Procedure(s) Performed Left Cataract Phacoemulsification With Intraocular Lens Implant Surgeon Dr. Luh White Gym Teacher Surgeon(s) 0 Estimated Blood Loss 0 Findings left cataract Specimens none Complication(s) None Disposition
--- NOTE | 2017-01-30 08:46 | [facility] Operative Report ---
Operative Report Date of Service Jan 30, 2017. Operative Report DATE OF OPERATION: 01/30/17 PREOPERATIVE DIAGNOSIS: Senile nuclear cataract, left eye POSTOPERATIVE DIAGNOSIS: Senile nuclear cataract, left eye PROCEDURE PERFORMED: Phacoemulsification with intraocular lens implantation, left eye SURGEON: Dr. Mark White ANESTHESIA: Topical with 1% intracameral lidocaine and monitored anesthesia care COMPLICATIONS: None DESCRIPTION OF PROCEDURE: After positively identifying the patient both verbally and by wristband in the preoperative area, the left eye was marked as the operative eye. The patient was then brought back to the operating room by the anesthesia and nursing staff where they were given a drop of Lidocaine and betadine into the operative eye. They were then sterilely prepped and draped in the standard fashion typical for ophthalmic surgery. Steri-strips were placed along the upper eyelids to keep the lashes back, and a lid speculum was placed into the operative eye. At this point, a documented time out was performed with members of the ophthalmology, nursing, and anesthesia staffs all agreeing upon the correct patient, correct location for surgery, correct procedure, and correct type and power of intraocular lens to be implanted. The microscope was then swung into position. First, a paracentesis wound was made using a sideport blade. Then, in sequence, 1% preservative-free lidocaine followed by Endocoat viscoelastic was injected into the anterior chamber. Next , the main incision was made with a keratome blade in triplanar fashion. A Malyugin ring was inserted due to poor pupil dilation. A sharp cystotome was introduced into the eye and used to create a tear in the anterior capsule, which was directed into a continuous curvilinear capsulorrhexis using Utrata forceps. Hydrodissection was then performed with BSS on a flat-tip cannula. Next, the phacoemulsification handpiece was introduced into the eye and used to remove the nucleus in a lddeeg-gun-kotmhyz fashion. This was done without complication and then the irrigation-aspiration handpiece was introduced into the eye and used to remove all remaining cortical and epinuclear material. Amvisc was then injected into the anterior chamber as well as into the capsular bag and using the lens injector system, an MX60 18.5 D lens, serial number [id number], and expiration date 08/2019 was injected into the capsular bag and rotated into the correct position. The Malyugin ring was removed. Next, the irrigation-aspiration handpiece was used to remove all remaining Amvisc. BSS was used to hydrate the main wound, and then BSS was injected into the paracentesis site to reach physiologic pressure and then the main wound was checked and found to be watertight. The patient was given drops of Vigamox and Tobradex ointment into the operative eye, and then the surrounding area was cleaned and dried. A clear plastic shield was placed over the eye and the patient was then sat up and taken from the operating room by the anesthesia staff having tolerated the procedure well and suffering no complications. DISPOSITION: The patient was returned to the recovery room in stable condition. I attest to the content of the Intraoperative Record and any orders documented therein. Any exceptions are noted below.
[2017-01-30 08:47] VITALS: TEMP 36.6
--- NOTE | 2017-01-30 08:47 | Discharge Instructions-SurgCtr ---
Discharge Instructions Date of Service Jan 30, 2017. Visit Reason for Visit: Left Cataract Discharge Discharge Diagnosis / Problem: left cataract Discharge Goals Goal(s): Decrease discomfort, Improve function Activity Recommendations Activity Limitations: as noted below Anesthesia . Post Anesthesia Instructions: If you have had General Anesthesia or IV Sedation: * Do not drive today. * Resume driving when surgeon permits. * Do not make important decisions or sign legal documents today. * Call surgeon for: 1. Temperature elevations greater than 101 degrees F. 2. Uncontrollable pain. 3. Excessive bleeding. 4. Persistent nausea and vomiting. 5. Medication intolerance (nausea, vomiting or rash). * For nausea and vomiting use only clear liquids such as: tea, soda, bouillon until nausea subsides, then gradually increase diet as tolerated. * If you have any concerns or questions, call your surgeon's office. If physician is unavailable and it is an emergency, call 911 or go to the nearest emergency room. . Instructions / Follow-Up Instructions / Follow-Up ACTIVITY RECOMMENDATIONS: * Light activities. * You may walk outside, read, watch television. * You may notice redness on the white part of the eye and some blurry vision - this is normal. MEDICATIONS: Resume previous medications unless instructed otherwise by your surgeon. Start all eye drops at 11 am today: * Eye drops (today): Prednisone - one drop in operative eye every 2 hours while awake Ciprofloxacin - one drop in operative eye every 2 hours while awake Ilevro - one drop in operative eye daily SPECIAL CARE INSTRUCTIONS: * Tape plastic shield over eye to sleep at night. Call your doctor at with any concerns or problems. FOLLOW UP VISIT: Follow-up with Dr White at [facility] as scheduled. Diet Recommendations Home Diet: no limitations Procedures Procedures Performed: Left Cataract Phacoemulsification With Intraocular Lens Implant Pending Studies Studies pending at discharge: no Medical Emergencies . Who to Call and When: Medical Emergencies: If at any time you feel your situation is an emergency, please call 911 immediately. . Non-Emergent Contact Non-Emergency issues call your: Surgeon . . "Provider Documentation" section prepared by Mark White. .
--- NOTE | 2017-01-30 09:04 | Anesthesia Progress Nt - [facility] ---
Anesthesia Post Op Note Date & Time Jan 30, 2017 at 09:04 Vital Signs Pain Intensity: 0 Vital Signs Past 12 Hours Date Time Temp Pulse Resp B/P (MAP) Pulse Ox O2 Delivery O2 Flow Rate FiO2 01/30/17 08:47 36.6 71 16 104/66 (79) 93 Room Air 01/30/17 07:30 36.8 84 24 95/52 (66) 90 Room Air Notes Mental Status: alert / awake / arousable, participated in evaluation Pt Amnestic to Procedure: Yes Nausea / Vomiting: adequately controlled Pain: adequately controlled Airway Patency, RR, SpO2: stable & adequate BP & HR: stable & adequate Hydration State: stable & adequate Anesthetic Complications: no major complications apparent
[2017-01-30 09:09] VITALS: BP 104/66; PULSE 74; O2SAT 92
== END | disposition home or self-care (01) ==
LOC: X.SURG 07:17
PROVIDERS: ATTEND Ophthalmology
DX: H25.12 Age-related nuclear cataract, left eye (principal); N18.3 Chronic kidney disease, stage 3 (moderate); J44.9 Chronic obstructive pulmonary disease, unspecified; E78.00 Pure hypercholesterolemia, unspecified; M81.0 Age-related osteoporosis without current pathological fracture; Z90.49 Acquired absence of other specified parts of digestive tract; Z90.710 Acquired absence of both cervix and uterus; Z87.891 Personal history of nicotine dependence

== ENCOUNTER → 2017-08-05 | Outpatient (CLI) | payer BC ==
[~2017-08-05] MED LIST changes: -500ML BSS 0.3ML EPI 1:1000PF IRRIG ONE; -ACETAMINOPHEN 325 MG TAB PO PRN; -AMVISC PLUS 0.8ML SYRINGE INT OCU ONE; +ATOR10TA82 PO; -ATOR10TA88 PO; -ATROPINE SULFATE 0.1 MG/ML 5ML SYR IV PRN; -BSS FLUSH ONE; -ENDOCOAT 0.85ML SYRINGE INT OCU ONE; -EpHEDrine SULFATE INJ 50 MG/ML AMP IV PRN; -EpINEphrine INJ 1MG/ML AMP 1 MG/ML AMP ONE; -FENTANYL CITRATE INJ 50 MCG/1 ML 2 ML VIAL IV PRN; -FLUMAZENIL 0.1 MG/1 ML 10 ML VIAL IV PRN; +FLUT0.15; -LABETALOL HCL IV 5 MG/ML 20ML IV PRN; -LACTATED RINGER'S 1000ML 500 ML IV SCH; -LIDOCAINE 4% OP SOLN DROP CHARGE ONE; -LIDOCAINE 4% OP SOLN DROP CHARGE OPL SCH; -LIDOCAINE HCL 1% MPF 2 ML VIAL ONE; +LVQ750 PO; -MEPERIDINE HCL 25 MG/ML CARP IV PRN; -MIDAZOLAM HCL 1 MG/ML 2ML VIAL ONE; -MIX: 4ML BSS 1ML EPI 1:1000 PF TOP ONE; -MOXIFLOXACIN OPH SOLN PER DROP CHARGE ONE; -NALOXONE HCL 0.4 MG/1 ML VIAL/CARP IV PRN; -ONDANSETRON INJ 2 MG/ML 2 ML VIAL IV PRN; -PHENYLEPHRINE 100MCG/ML 5ML SYR IV PRN; -POVIDONE-IODINE OP SOLN 30 ML BTL ONE; +PRED10TA PO; -PROPARACAINE 0.5% OP SOLN PER DROP CHARGE OPL SCH; -TOBRAMYCIN/DEXAMETHASONE OPH OINT PER APPLN CHARGE ONE
--- NOTE | 2017-08-05 14:31 | DIAGNOSTIC IMAGING REPORT ---
CAROTID ARTERY ULTRASOUND CLINICAL HISTORY: GAIT INSTABILITY, TIA. STENOSIS COMPARISON STUDY: None. TECHNIQUE: Real-time, grayscale, and color Doppler sonography of the carotid and vertebral arteries was performed. Images were viewed in the transverse and longitudinal planes. FINDINGS: There is mild atherosclerotic plaque. Velocity measurements are listed below. COMMON CAROTID PEAK SYSTOLIC VELOCITY (CM/S): RIGHT 68 LEFT 82 ICA PEAK SYSTOLIC VELOCITY (CM/S): RIGHT 51 LEFT 51 Systolic ratios between the internal to common carotid arteries are normal. Antegrade flow is seen in the vertebral arteries. The external carotid arteries are patent. Blood pressure in the right arm measured 79/46. Blood pressure in the left arm measured 89/47. IMPRESSION: 1. No evidence for a hemodynamically significant stenosis. 2. Hypotension, as described above. This was discussed with the ordering physician's office and the patient is being assessed by nursing. Electronically signed by: Yehuda Miller M.D. 08/05/2017 2:30 PM Dictated Date/Time: 08/05/2017 2:26 PM
--- NOTE | 2017-08-05 15:17 | DIAGNOSTIC IMAGING REPORT ---
BRAIN WITHOUT CONTRAST CLINICAL HISTORY: 77 years-old Female presenting with GAIT INSTABILITY, TIA STENOSIS, facial sensation disturbance. TECHNIQUE: Multisequence, multiplanar MR imaging of the brain was performed without the use of intravenous contrast. IV contrast: None. COMPARISON: 02/03/[address] head from 06/17/2016. FINDINGS: Proportional ventricular and sulcal prominence, likely age-related parenchymal volume loss. Periventricular and subcortical white matter T2/FLAIR hyperintensity, nonspecific but likely indicative of chronic small vessel ischemic change. 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 No mass effect or midline shift. No restricted diffusion to suggest acute ischemia. No hemorrhage. No extra-axial fluid collection. T2 skull base flow voids preserved. Bone marrow signal intensity within the calvarium within normal limits. IMPRESSION: 1. 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 No acute intracranial abnormality. Electronically signed by: Oliver Ang M.D. 08/05/2017 3:16 PM Dictated Date/Time: 08/05/2017 3:12 PM
== END | disposition home or self-care (01) ==
LOC: C.ULTR 13:22
PROVIDERS: ATTEND Internal Medicine
DX: R26.81 Unsteadiness on feet (principal); H93.8X2 Other specified disorders of left ear

== ENCOUNTER 2017-08-06 15:30 | Inpatient (IN) | payer BC, OTHER ==
[~2017-08-06] VITALS: Ht 160 cm; Wt 52.5 kg
[~2017-08-06 15:30] MED LIST changes: -FLUT0.15; -LVQ750 PO; -PRED10TA PO
[2017-08-06] MEDS ORDERED: SODIUM CHLORIDE 0.9% 1000ML 250 ML IV STA (16:13)
[2017-08-06] MEDS ORDERED: OPTIRAY 320 IV PRN (16:30)
--- NOTE | 2017-08-06 16:45 | DIAGNOSTIC IMAGING REPORT ---
SINGLE VIEW CHEST CLINICAL HISTORY: Dyspnea. FINDINGS: An AP, portable, upright chest radiograph is compared to study dated 06/17/2016 and correlated with chest CT dated 09/19/2016. The examination is degraded by portable technique and patient rotation. The heart is mildly enlarged and there is atherosclerotic calcification of the thoracic aorta. The pulmonary vasculature is noncongested. Advanced emphysema and chronic interstitial thickening are similar to previous. There is patchy airspace consolidation at the left lung base with an associated left pleural effusion. The right lung is grossly clear. There is no pneumothorax. The skeletal structures are osteopenic. Degenerative change and scoliosis is noted throughout the thoracic spine. IMPRESSION: 1. There is patchy airspace consolidation at the left lung base with associated pleural effusion. The appearance is typical for pneumonia/aspiration pneumonitis. Clinical correlation will be required and radiographic follow-up to resolution is recommended. 2. The right lung appears clear. 3. Cardiomegaly and advanced emphysema. Electronically signed by: Lenny Villa M.D. 08/06/2017 4:44 PM Dictated Date/Time: 08/06/2017 4:43 PM
[2017-08-06 17:09] LABS: BASO % 0.8 %; EOS % 1.9 %; EOS ABS # 0.24 K/uL (0-0.5); HEMATOCRIT 38.7 % (37-47); HEMOGLOBIN 13.4 g/dL (12.0-16.0); IG# 0.05 K/uL (0.00-0.02); LYMPH % 23.4 %; LYMPH ABS # 2.95 K/uL (1.2-3.4); MEAN CELL VOLUME 88.2 fL (80-100); MEAN CORPUSCULAR HEMOGLOBIN 30.5 pg (25-34); MEAN CORPUSCULAR HGB CONC 34.6 g/dl (32-36); MEAN PLATELET VOLUME 9.1 fL (7.4-10.4); MONO % 8.2 %; MONO ABS # 1.03 K/uL (0.11-0.59); NEUT % 65.3 %; NEUT ABS # 8.23 K/uL (1.4-6.5); PLATELET COUNT 399 K/uL (130-400); RED CELL DISTRIBUTION WIDTH CV 13.5 % (11.5-14.5); RED CELL DISTRIBUTION WIDTH SD 43.8 fL (36.4-46.3)
[2017-08-06 17:20] LABS: PTT PATIENT 34.3 SECONDS (21.0-31.0)
[2017-08-06 17:31] LABS: ALBUMIN 3.2 gm/dl (3.4-5.0); ALT/SGPT 16 U/L (12-78); BLOOD UREA NITROGEN 20 mg/dl (7-18); CALCIUM 9.1 mg/dl (8.5-10.1); CARBON DIOXIDE 26 mmol/L (21-32); CREATININE 1.13 mg/dl (0.60-1.20); GLUCOSE 100 mg/dl (70-99); POTASSIUM 4.2 mmol/L (3.5-5.1); SODIUM 129 mmol/L (136-145)
[2017-08-06 17:35] LABS: ALKALINE PHOSPHATASE 81 U/L (45-117); AST/SGOT 15 U/L (15-37); TOTAL PROTEIN 6.6 gm/dl (6.4-8.2)
--- NOTE | 2017-08-06 18:13 | DIAGNOSTIC IMAGING REPORT ---
CT ANGIOGRAM OF THE CHEST CLINICAL HISTORY: Atypical chest pain. Hemoptysis. COMPARISON STUDY: Chest x-ray dated 08/06/2017. Chest CT scans dated 09/19/2016 and 09/01/2009. TECHNIQUE: Following the IV administration of 83 cc of Optiray 320, CT angiogram of the chest was performed from the upper abdomen to the thoracic inlet utilizing the pulmonary embolus protocol. Images are reviewed in the axial, sagittal, and coronal planes. 3-D MIPS images are created and assessed. IV contrast was administered without complication. A dose lowering technique was utilized adhering to the principles of ALARA. CT DOSE: 184.46 mGy.cm FINDINGS: Thyroid: Imaged portions of the thyroid gland are normal in size and attenuation. Thoracic aorta: There is atherosclerotic calcification of the thoracic aorta, which is normal in caliber and demonstrates standard 3-vessel arch anatomy. No dissection is seen. Pulmonary vasculature: The pulmonary trunk is dilated, measuring 3.1 cm in transverse diameter. This suggests pulmonary artery hypertension. There are no filling defects identified in main, lobar, or segmental pulmonary branches to suggest pulmonary embolus. Heart: The heart is enlarged and there is trace pericardial effusion. There are coronary artery calcifications. Lungs and pleural spaces: Advanced emphysema is identified. There is dense airspace consolidation at the left lung base with a small left pleural effusion. Milder patchy consolidative change is identified in the lingula. The right lung appears clear. The trachea is clear. Fluid/secretions fill the left lower lobe bronchi. Mediastinum: There is no mediastinal lymphadenopathy. Zeynep: Mildly enlarged left hilar nodes measure up to 1.4 cm in short axis. Axillae: There is no axillary lymphadenopathy. Upper abdomen: Cholecystectomy clips are noted. Central intrahepatic biliary ductal dilatation is noted. A small hiatal hernia is observed. Lobular soft tissue nodule below the left hemidiaphragm likely resent splenules. Skeletal structures: The skeletal structures are osteopenic. Degenerative change and scoliosis are noted in the thoracic spine. No lytic or blastic bony lesions are seen. IMPRESSION: 1. There is no evidence of pulmonary embolus in the main, lobar, or segmental pulmonary arteries. 2. Cardiomegaly and advanced emphysema with evidence of pulmonary artery hypertension. 3. There is dense airspace consolidation at the left lung base with a small left pleural effusion. Patchy airspace consolidation is seen in the lingula. The appearance is typical for pneumonia/aspiration pneumonitis. Clinical correlation will be required and radiographic follow-up to resolution is recommended. 4. Fluid/debris fills the left lower lobe airways. Correlate for evidence of aspiration. 5. The right lung appears clear. 6. Mildly enlarged left hilar lymph nodes are likely on a reactive basis. Electronically signed by: Lenny Villa M.D. 08/06/2017 6:12 PM Dictated Date/Time: 08/06/2017 6:01 PM
[2017-08-06] MEDS ORDERED: LEVAQUIN 750MG / 150ML D5W IV STA (18:22)
--- NOTE | 2017-08-06 18:47 | EMERGENCY ROOM VISIT NOTE ---
History Report prepared by Dora: Prabhakar Collins Under the Supervision of: Dr. Lenny Dunn M.D. First contact with patient: 16:04 Chief Complaint: OTHER COMPLAINT Stated Complaint: SPITTING UP BLOOD History of Present Illness The patient is a 77 year old female who presents to the Emergency Room with complaints of intermittently coughing up blood that started this morning. The patient states that a month ago she lost track of time and did not remember a couple of hours that had gone by. She also states that at the time she had difficulty with standing up. The patient states that due to this issue, she had an MRI scheduled for yesterday. The patient states that yesterday she did not drink as much water as usual since she had an MRI. She reports that during the day she felt lightheaded with standing up and short of breath. 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 She also had a carotid ultrasound that showed no significant stenosis. The patient states that during her visit she had low blood pressure that was around 79/10. She reports that she usually has low blood pressure in the 90s systolically, but reports this was lower than usual. The patient states that she drank water after her appointment last night and her lightheadedness and shortness of breath were alleviated. She reports that she believes her symptoms were caused by dehydration. The patient states that this morning she developed an intermittent productive cough with bloody sputum. She reports that these episodes have occurred two times with her last episode at 1300. The patient states she does cough up clear sputum every so often, but denies bringing up blood in the past. She reports she has also been experiencing fatigue lately. The patient states she called her doctor who told her to come to the ER. She denies fever, vomiting, diarrhea, chest pain, syncope, taking blood thinners, urinary symptoms, and a history of blood clots in legs or lungs. 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 She reports that she typically wears oxygen only at night. Source of History: patient Onset: this morning Position: other (global) Quality: other (cough with blood sputum) Timing: intermittent Associated Symptoms: + SOB (resolved), + fatigue, No LOC, No fevers, No chest pain, No vomiting, No diarrhea, No urinary symptoms Note: Associated symptoms: resolved lightheadedness. Review of Systems See HPI for pertinent positives & negatives. A total of 10 systems reviewed and were otherwise negative. Past Medical & Surgical Medical Problems: (1) Adenocarcinoma of lung (2) Chest pain (3) Chronic pain (4) Chronic pain syndrome (5) Chronic prescription opiate use (6) CKD (chronic kidney disease), stage III (7) COPD exacerbation (8) Depression (9) Disorder of electrolytes (10) Encephalopathy (11) Esophageal reflux (12) Gastroesophageal reflux disease (13) Lumbar spinal stenosis (14) Osteoporosis (15) Pulmonary hypertension Surgical Problems: (1) H/O splenectomy Family History Cancer Lung disease Social History Smoking Status: Current Some Day Smoker Alcohol Use: none Drug Use: none Marital Status: single Current/Historical Medications Scheduled Atorvastatin (Lipitor), 10 MG PO QAM Escitalopram Oxalate (Lexapro), 10 MG PO QAM Fish Oil ([place]-3), 2 CAP PO DAILY Fluticasone Propionate (Nasal) (Flonase Allergy Relief), 2 SPRAYS NA DAILY Gabapentin (Neurontin), 600 MG PO BID Home O2 Therapy (Oxygen), 2 LITERS NA HS Morphine Sulfate (Morphine Sulfate ER), 1 TAB PO Q12 Multivitamin (Multivitamin), 1 TAB PO DAILY Omeprazole (Prilosec), 20 MG PO DAILY Umeclidinium-Vilanterol (Anoro Ellipta 62.5-25 Mcg/INH), 1 PUFF INH DAILY [Glucosamine Sulfate], 2 TABS PO DAILY Scheduled PRN Morphine Sulfate Ir (Morphine Sulfate Ir), 30 MG PO Q6H PRN for Pain Allergies Coded Allergies: Penicillins (Unverified Allergy, Unknown, hives, 08/06/17) Procaine (Verified Allergy, Unknown, SWELLING, 08/06/17) Codeine (Unverified Adverse Reaction, Unknown, GI UPSET, 08/06/17) Physical Exam Vital Signs Date Time Temp Pulse Resp B/P (MAP) Pulse Ox O2 Delivery O2 Flow Rate FiO2 08/06/17 20:00 73 18 106/60 94 Nasal Cannula 2.0 08/06/17 18:00 94 Nasal Cannula 2.0 08/06/17 17:58 75 24 146/75 82 Room Air 08/06/17 17:25 73 08/06/17 16:43 92 3.0 08/06/17 16:43 92 Nasal Cannula 3.0 08/06/17 15:54 85 19 95/56 91 Nasal Cannula 2.0 08/06/17 15:35 37.2 97 16 104/61 85 Room Air Physical Exam GENERAL: Patient is in no acute distress. HEENT: No acute trauma, normocephalic atraumatic, mucous membranes moist, no nasal congestion, no scleral icterus. NECK: No stridor, no adenopathy, no meningismus, trachea is midline. LUNGS: Decreased breath sounds. Breath sounds are equal. No wheezing, rhonchi, or respiratory distress. HEART: Without murmurs gallops or rubs, regular rate and rhythm. ABDOMEN: Soft, nontender, bowel sounds positive, no hernias, no peritonitis. EXTREMITIES: No cyanosis or edema, full range of motion of all the joints without pain or difficulty, no signs for acute trauma. NEUROLOGIC: Oriented x 3, no acute motor or sensory deficits, no focal weakness. SKIN: No rash, no jaundice, no diaphoresis. Medical Decision & Procedures ER Provider Diagnostic Interpretation: Radiology results as stated below per my review and radiologist interpretation: SINGLE VIEW CHEST CLINICAL HISTORY: Dyspnea. FINDINGS: An AP, portable, upright chest radiograph is compared to study dated 06/17/2016 and correlated with chest CT dated 09/19/2016. The examination is degraded by portable technique and patient rotation. The heart is mildly enlarged and there is atherosclerotic calcification of the thoracic aorta. The pulmonary vasculature is noncongested. Advanced emphysema and chronic interstitial thickening are similar to previous. There is patchy airspace consolidation at the left lung base with an associated left pleural effusion. The right lung is grossly clear. There is no pneumothorax. The skeletal structures are osteopenic. Degenerative change and scoliosis is noted throughout the thoracic spine. IMPRESSION: 1. There is patchy airspace consolidation at the left lung base with associated pleural effusion. The appearance is typical for pneumonia/aspiration pneumonitis. Clinical correlation will be required and radiographic follow-up to resolution is recommended. 2. The right lung appears clear. 3. Cardiomegaly and advanced emphysema. Electronically signed by: Lenny Villa M.D. 08/06/2017 4:44 PM Dictated Date/Time: 08/06/2017 4:[address] ANGIOGRAM OF THE CHEST CLINICAL HISTORY: Atypical chest pain. Hemoptysis. COMPARISON STUDY: Chest x-ray dated 08/06/2017. Chest CT scans dated 09/19/2016 and 09/01/2009. TECHNIQUE: Following the IV administration of 83 cc of Optiray 320, CT angiogram of the chest was performed from the upper abdomen to the thoracic inlet utilizing the pulmonary embolus protocol. Images are reviewed in the axial, sagittal, and coronal planes. 3-D MIPS images are created and assessed. IV contrast was administered without complication. A dose lowering technique was utilized adhering to the principles of ALARA. CT DOSE: 184.46 mGy.cm FINDINGS: Thyroid: Imaged portions of the thyroid gland are normal in size and attenuation. Thoracic aorta: There is atherosclerotic calcification of the thoracic aorta, which is normal in caliber and demonstrates standard 3-vessel arch anatomy. No dissection is seen. Pulmonary vasculature: The pulmonary trunk is dilated, measuring 3.1 cm in transverse diameter. This suggests pulmonary artery hypertension. There are no filling defects identified in main, lobar, or segmental pulmonary branches to suggest pulmonary embolus. Heart: The heart is enlarged and there is trace pericardial effusion. There are coronary artery calcifications. Lungs and pleural spaces: Advanced emphysema is identified. There is dense airspace consolidation at the left lung base with a small left pleural effusion. Milder patchy consolidative change is identified in the lingula. The right lung appears clear. The trachea is clear. Fluid/secretions fill the left lower lobe bronchi. Mediastinum: There is no mediastinal lymphadenopathy. Zeynep: Mildly enlarged left hilar nodes measure up to 1.4 cm in short axis. Axillae: There is no axillary lymphadenopathy. Upper abdomen: Cholecystectomy clips are noted. Central intrahepatic biliary ductal dilatation is noted. A small hiatal hernia is observed. Lobular soft tissue nodule below the left hemidiaphragm likely resent splenules. Skeletal structures: The skeletal structures are osteopenic. Degenerative change and scoliosis are noted in the thoracic spine. No lytic or blastic bony lesions are seen. IMPRESSION: 1. There is no evidence of pulmonary embolus in the main, lobar, or segmental pulmonary arteries. 2. Cardiomegaly and advanced emphysema with evidence of pulmonary artery hypertension. 3. There is dense airspace consolidation at the left lung base with a small left pleural effusion. Patchy airspace consolidation is seen in the lingula. The appearance is typical for pneumonia/aspiration pneumonitis. Clinical correlation will be required and radiographic follow-up to resolution is recommended. 4. Fluid/debris fills the left lower lobe airways. Correlate for evidence of aspiration. 5. The right lung appears clear. 6. Mildly enlarged left hilar lymph nodes are likely on a reactive basis. Electronically signed by: Lenny Villa M.D. 08/06/2017 6:12 PM Dictated Date/Time: 08/06/2017 6:01 PM Laboratory Results 08/06/17 16:55 Red Blood Count 4.39, Mean Corpuscular Volume 88.2, Mean Corpuscular Hemoglobin 30.5, Mean Corpuscular Hemoglobin Concent 34.6, Mean Platelet Volume 9.1, Neutrophils (%) (Auto) 65.3, Lymphocytes (%) (Auto) 23.4, Monocytes (%) (Auto) 8.2, Eosinophils (%) (Auto) 1.9, Basophils (%) (Auto) 0.8, Neutrophils # (Auto) 8.23, Lymphocytes # (Auto) 2.95, Monocytes # (Auto) 1.03, Eosinophils # (Auto) 0.24, Basophils # (Auto) 0.10 08/06/17 16:55 Test 08/06/17 00:00 08/06/17 16:55 08/06/17 18:00 White Blood Count 12.60 K/uL (4.8-10.8) Red Blood Count 4.39 M/uL (4.2-5.4) Hemoglobin 13.4 g/dL (12.0-16.0) Hematocrit 38.7 % (37-47) Mean Corpuscular Volume 88.2 fL (80-100) Mean Corpuscular Hemoglobin 30.5 pg (25-34) Mean Corpuscular Hemoglobin Concent 34.6 g/dl (32-36) Platelet Count 399 K/uL (130-400) Mean Platelet Volume 9.1 fL (7.4-10.4) Neutrophils (%) (Auto) 65.3 % Lymphocytes (%) (Auto) 23.4 % Monocytes (%) (Auto) 8.2 % Eosinophils (%) (Auto) 1.9 % Basophils (%) (Auto) 0.8 % Neutrophils # (Auto) 8.23 K/uL (1.4-6.5) Lymphocytes # (Auto) 2.95 K/uL (1.2-3.4) Monocytes # (Auto) 1.03 K/uL (0.11-0.59) Eosinophils # (Auto) 0.24 K/uL (0-0.5) Basophils # (Auto) 0.10 K/uL (0-0.2) RDW Standard Deviation 43.8 fL (36.4-46.3) RDW Coefficient of Variation 13.5 % (11.5-14.5) Immature Granulocyte % (Auto) 0.4 % Immature Granulocyte # (Auto) 0.05 K/uL (0.00-0.02) Prothrombin Time 10.1 SECONDS (9.0-12.0) Prothromb Time International Ratio 1.0 (0.9-1.1) Activated Partial Thromboplast Time 34.3 SECONDS (21.0-31.0) Partial Thromboplastin Ratio 1.3 Anion Gap 6.0 mmol/L (3-11) Est Creatinine Clear Calc Drug Dose 34.5 ml/min Estimated GFR () 54.3 Estimated GFR (Non- 46.8 BUN/Creatinine Ratio 17.3 (10-20) Calcium Level 9.1 mg/dl (8.5-10.1) Total Bilirubin 0.7 mg/dl (0.2-1) Aspartate Amino Transf (AST/SGOT) 15 U/L (15-37) Alanine Aminotransferase (ALT/SGPT) 16 U/L (12-78) Alkaline Phosphatase 81 U/L (45-117) Troponin I < 0.015 ng/ml (0-0.045) Total Protein 6.6 gm/dl (6.4-8.2) Albumin 3.2 gm/dl (3.4-5.0) Globulin 3.4 gm/dl (2.5-4.0) Albumin/Globulin Ratio 1.0 (0.9-2) Urine Color YELLOW Urine Appearance CLEAR (CLEAR) Urine pH 5.5 (4.5-7.5) Urine Specific [place] 1.015 (1.000-1.030) Urine Protein NEG (NEG) Urine Glucose (UA) NEG (NEG) Urine Ketones NEG (NEG) Urine Occult Blood NEG (NEG) Urine Nitrite NEG (NEG) Urine Bilirubin NEG (NEG) Urine Urobilinogen NEG (NEG) Urine Leukocyte Esterase NEG (NEG) Laboratory results reviewed by me. Medications Administered Medications (Trade) Dose Ordered Sig/Lan Route Start Time Stop Time Status Last Admin Dose Admin Sodium Chloride 250 ml @ 999 mls/hr Q16M STAT IV 08/06/17 16:13 08/06/17 16:28 DC 08/06/17 18:03 999 MLS/HR Levofloxacin (Levaquin / D5W) 750 mg NOW STAT IV 08/06/17 18:22 08/06/17 18:24 DC 08/06/17 20:02 750 MG Sodium Chloride 1,000 ml @ 100 mls/hr Q10H IV 08/06/17 20:00 08/07/17 05:59 08/06/17 21:44 100 MLS/HR ECG Per My Interpretation Indication: SOB/dyspnea Rate (beats per minute): 74 Rhythm: normal sinus Findings: other (No ST elevation, No PVCs) ED Course 1605: The patient was evaluated in room C05. A complete history and physical exam was performed. 1613: Ordered Sodium Chloride 250 ml @ 999 mls/hr IV. 1821: I reevaluated the patient and updated her on her results. I discussed the treatment plan with the patient. She will be further evaluated. 182: Ordered Levofloxacin 750 mg IV. 1824: I discussed the patient's case with Jyoti Timmons PA-C Hospitalist. She understands the patient's condition and agrees to accept the patient. The patient will be further evaluated. Medical Decision The patient is a 77 year old female who presents to the Emergency Room with complaints of intermittently coughing up blood that started this morning. Differential diagnoses considered include pulmonary embolism, bronchitis, malignancy, pneumonia, anemia, renal failure, and electrolyte imbalance. There is a mild leukocytosis, this could be consistent with infection. No concerning anemia. Renal panel testing shows a somewhat low sodium, no kidney failure, no hepatitis. EKG shows a sinus rhythm, no acute ischemia. Cardiac enzyme testing 1 is not consistent with acute cardiac injury. Chest film shows what seems to be a left base pneumonia. Chest CT does not show PE, a pneumonia was seen in the left lower lung. Blood cultures are pending. Urinalysis does not show evidence for infection. The patient was hypoxic upon arrival, she was placed on nasal cannula O2. This improved her O2 saturation. She received IV saline, she was given IV Levaquin as antibiotic coverage. Given the hypoxia, the hemoptysis and the pneumonia, a hospital stay is warranted. I spoke to the patient and case management. The on-call hospitalist was consulted. Medication Reconcilliation Current Medication List: was personally reviewed by me Blood Pressure Screening Patient's blood pressure: Low blood pressure Consults Time Called: 1818 Consulting Physician: Jyoti Timmons PA-C Hospitalist Returned Call: 1823 I discussed the patient's case with Jyoti Timmons PA-C Hospitalist. She understands the patient's condition and agrees to accept the patient. The patient will be further evaluated. Impression Primary Impression: Hypoxia Additional Impressions: PNA (pneumonia) Hemoptysis Scribe Attestation The scribe's documentation has been prepared under my direction and personally reviewed by me in its entirety. I confirm that the note above accurately reflects all work, treatment, procedures, and medical decision making performed by me. Departure Information Dispostion Being Evaluated By Hospitalist Referrals Ron Ortega MD (PCP) Patient Instructions My [facility] Problem Qualifiers
[2017-08-06] MEDS ORDERED: ACETAMINOPHEN 325 MG TAB PO PRN (20:00)
[2017-08-06] MEDS ORDERED: SODIUM CHLORIDE 0.9% 1000ML 1,000 ML IV SCH (20:00)
[2017-08-06] MEDS ORDERED: POLYETHYLENE (MIRALAX) 17 GM PACK PO PRN (20:00)
[2017-08-06] MEDS ORDERED: ONDANSETRON INJ 2 MG/ML 2 ML VIAL IV PRN (20:00)
[2017-08-06] MEDS ORDERED: LEVOFLOXACIN CONSULT ACTIVE PRN (21:14)
[2017-08-06 21:23] VITALS: BP 97/61; PULSE 92; TEMP 36.9; O2SAT 90
[2017-08-06] MEDS ORDERED: FLUT0.15 (21:23)
[2017-08-06 21:29] VITALS: BP 97/61; PULSE 92; TEMP 36.9; O2SAT 97; Ht 160 cm; Wt 52.5 kg
--- NOTE | 2017-08-06 21:47 | History and Physical ---
History & Physical Date & Time of Service: Aug 06, 2017 at 21:27 Chief Complaint: PNA Primary Care Physician: Ron Ortega MD History of Present Illness 77 yo F presents to the ER with reports of coughing up blood streaked sputum this morning, along with some chills and severe fatigue over the past 2 weeks that have caused her to feel significantly run down. She reports having friends over who were sick recently. She reports some chills without fevers and some constipation. She also reports allergic symptoms to include running nose, itchy watery eyes and itchy throat for the past couple of weeks, and for which she is taking Flonase. She denies any intolerance of food, nausea, vomiting, or diarrhea. She has had some minor headaches lately and hasn't been coughing much at all actually. she only reports coughing up the blood tinged sputum this morning x 3. She denies feeling short of breath, and she is on oxygen typically at night. Past Medical/Surgical History Medical Problems: (1) Adenocarcinoma of lung Status: Chronic (2) Chronic pain syndrome Status: Chronic (3) Chronic prescription opiate use Status: Chronic (4) CKD (chronic kidney disease), stage III Status: Chronic (5) Esophageal reflux Status: Chronic (6) Gastroesophageal reflux disease Status: Chronic (7) Lumbar spinal stenosis Status: Chronic (8) Osteoporosis Status: Chronic (9) Pulmonary hypertension Status: Chronic Surgical Problems: (1) H/O splenectomy Status: Chronic Family History Cancer Lung disease Social History Smoking Status: Current Some Day Smoker Smokeless Tobacco Use: No Alcohol Use: none Drug Use: none Marital Status: single Housing status: lives alone Occupational Status: retired Immunizations History of Influenza Vaccine: Yes Influenza Vaccine Date: Mar 11, 2017 History of Tetanus Vaccine?: Yes Tetanus Immunization Date: Jun 04, 2016 History of Pneumococcal: Yes Pneumococcal Date: Mar 23, 2013 History of Hepatitis B Vaccine: Yes Allergies Coded Allergies: Penicillins (Unverified Allergy, Unknown, hives, 08/06/17) Procaine (Verified Allergy, Unknown, SWELLING, 08/06/17) Codeine (Unverified Adverse Reaction, Unknown, GI UPSET, 08/06/17) Home Medications Scheduled Atorvastatin (Lipitor), 10 MG PO QAM Escitalopram Oxalate (Lexapro), 10 MG PO QAM Fish Oil ([place]-3), 2 CAP PO DAILY Fluticasone Propionate (Nasal) (Flonase Allergy Relief), 2 SPRAYS NA DAILY Gabapentin (Neurontin), 600 MG PO BID Home O2 Therapy (Oxygen), 2 LITERS NA HS Morphine Sulfate (Morphine Sulfate ER), 1 TAB PO Q12 Multivitamin (Multivitamin), 1 TAB PO DAILY Omeprazole (Prilosec), 20 MG PO DAILY Umeclidinium-Vilanterol (Anoro Ellipta 62.5-25 Mcg/INH), 1 PUFF INH DAILY [Glucosamine Sulfate], 2 TABS PO DAILY Scheduled PRN Morphine Sulfate Ir (Morphine Sulfate Ir), 30 MG PO Q6H PRN for Pain Review of Systems AT least ten systems were reviewed and negative except as indicated in HPI above. Physical Exam Vital Signs Date Time Temp Pulse Resp B/P (MAP) Pulse Ox O2 Delivery O2 Flow Rate FiO2 08/06/17 21:23 36.9 92 18 97/61 (73) 90 Nasal Cannula 2.0 08/06/17 20:00 73 18 106/60 94 Nasal Cannula 2.0 08/06/17 18:00 94 Nasal Cannula 2.0 08/06/17 17:58 75 24 146/75 82 Room Air 08/06/17 17:25 73 08/06/17 16:43 92 3.0 08/06/17 16:43 92 Nasal Cannula 3.0 08/06/17 15:54 85 19 95/56 91 Nasal Cannula 2.0 08/06/17 15:35 37.2 97 16 104/61 85 Room Air General Appearance: no apparent distress, + thin Head: normocephalic, atraumatic Eyes: normal inspection, PERRL, EOMI, sclerae normal ENT: normal ENT inspection, hearing grossly normal, pharynx normal Neck: supple, no adenopathy, thyroid normal, trachea midline Respiratory/Chest: lungs clear, normal breath sounds, no respiratory distress, no accessory muscle use Cardiovascular: regular rate, rhythm, no edema, no gallop, no murmur, normal peripheral pulses Abdomen/GI: normal bowel sounds, non tender, soft, no organomegaly Back: normal inspection Extremities/Musculoskelatal: normal inspection, no pedal edema, normal range of motion Neurologic/Psych: no motor/sensory deficits, alert, normal mood/affect, oriented x 3 Skin: normal color, warm/dry Diagnostics Laboratory Results 08/06/17 16:55 Red Blood Count 4.39, Mean Corpuscular Volume 88.2, Mean Corpuscular Hemoglobin 30.5, Mean Corpuscular Hemoglobin Concent 34.6, Mean Platelet Volume 9.1, Neutrophils (%) (Auto) 65.3, Lymphocytes (%) (Auto) 23.4, Monocytes (%) (Auto) 8.2, Eosinophils (%) (Auto) 1.9, Basophils (%) (Auto) 0.8, Neutrophils # (Auto) 8.23, Lymphocytes # (Auto) 2.95, Monocytes # (Auto) 1.03, Eosinophils # (Auto) 0.24, Basophils # (Auto) 0.10 08/06/17 16:55 Test 08/06/17 16:55 08/06/17 18:00 White Blood Count 12.60 K/uL (4.8-10.8) Red Blood Count 4.39 M/uL (4.2-5.4) Hemoglobin 13.4 g/dL (12.0-16.0) Hematocrit 38.7 % (37-47) Mean Corpuscular Volume 88.2 fL (80-100) Mean Corpuscular Hemoglobin 30.5 pg (25-34) Mean Corpuscular Hemoglobin Concent 34.6 g/dl (32-36) Platelet Count 399 K/uL (130-400) Mean Platelet Volume 9.1 fL (7.4-10.4) Neutrophils (%) (Auto) 65.3 % Lymphocytes (%) (Auto) 23.4 % Monocytes (%) (Auto) 8.2 % Eosinophils (%) (Auto) 1.9 % Basophils (%) (Auto) 0.8 % Neutrophils # (Auto) 8.23 K/uL (1.4-6.5) Lymphocytes # (Auto) 2.95 K/uL (1.2-3.4) Monocytes # (Auto) 1.03 K/uL (0.11-0.59) Eosinophils # (Auto) 0.24 K/uL (0-0.5) Basophils # (Auto) 0.10 K/uL (0-0.2) RDW Standard Deviation 43.8 fL (36.4-46.3) RDW Coefficient of Variation 13.5 % (11.5-14.5) Immature Granulocyte % (Auto) 0.4 % Immature Granulocyte # (Auto) 0.05 K/uL (0.00-0.02) Prothrombin Time 10.1 SECONDS (9.0-12.0) Prothromb Time International Ratio 1.0 (0.9-1.1) Activated Partial Thromboplast Time 34.3 SECONDS (21.0-31.0) Partial Thromboplastin Ratio 1.3 Anion Gap 6.0 mmol/L (3-11) Est Creatinine Clear Calc Drug Dose 34.5 ml/min Estimated GFR () 54.3 Estimated GFR (Non- 46.8 BUN/Creatinine Ratio 17.3 (10-20) Calcium Level 9.1 mg/dl (8.5-10.1) Total Bilirubin 0.7 mg/dl (0.2-1) Aspartate Amino Transf (AST/SGOT) 15 U/L (15-37) Alanine Aminotransferase (ALT/SGPT) 16 U/L (12-78) Alkaline Phosphatase 81 U/L (45-117) Troponin I < 0.015 ng/ml (0-0.045) Total Protein 6.6 gm/dl (6.4-8.2) Albumin 3.2 gm/dl (3.4-5.0) Globulin 3.4 gm/dl (2.5-4.0) Albumin/Globulin Ratio 1.0 (0.9-2) Urine Color YELLOW Urine Appearance CLEAR (CLEAR) Urine pH 5.5 (4.5-7.5) Urine Specific [place] 1.015 (1.000-1.030) Urine Protein NEG (NEG) Urine Glucose (UA) NEG (NEG) Urine Ketones NEG (NEG) Urine Occult Blood NEG (NEG) Urine Nitrite NEG (NEG) Urine Bilirubin NEG (NEG) Urine Urobilinogen NEG (NEG) Urine Leukocyte Esterase NEG (NEG) Date/Time Source Procedure Growth Status 08/06/17 20:00 Blood Blood Culture Pending Received Results Past 24 Hours Test 08/06/17 16:55 08/06/17 18:00 Range/Units White Blood Count 12.60 4.8-10.8 K/uL Red Blood Count 4.39 4.2-5.4 M/uL Hemoglobin 13.4 12.0-16.0 g/dL Hematocrit 38.7 37-47 % Mean Corpuscular Volume 88.2 80-100 fL Mean Corpuscular Hemoglobin 30.5 25-34 pg Mean Corpuscular Hemoglobin Concent 34.6 32-36 g/dl Platelet Count 399 130-400 K/uL Mean Platelet Volume 9.1 7.4-10.4 fL Neutrophils (%) (Auto) 65.3 % Lymphocytes (%) (Auto) 23.4 % Monocytes (%) (Auto) 8.2 % Eosinophils (%) (Auto) 1.9 % Basophils (%) (Auto) 0.8 % Neutrophils # (Auto) 8.23 1.4-6.5 K/uL Lymphocytes # (Auto) 2.95 1.2-3.4 K/uL Monocytes # (Auto) 1.03 0.11-0.59 K/uL Eosinophils # (Auto) 0.24 0-0.5 K/uL Basophils # (Auto) 0.10 0-0.2 K/uL RDW Standard Deviation 43.8 36.4-46.3 fL RDW Coefficient of Variation 13.5 11.5-14.5 % Immature Granulocyte % (Auto) 0.4 % Immature Granulocyte # (Auto) 0.05 0.00-0.02 K/uL Prothrombin Time 10.1 9.0-12.0 SECONDS Prothromb Time International Ratio 1.0 0.9-1.1 Activated Partial Thromboplast Time 34.3 21.0-31.0 SECONDS Partial Thromboplastin Ratio 1.3 Sodium Level 129 136-145 mmol/L Potassium Level 4.2 3.5-5.1 mmol/L Chloride Level 98 98-107 mmol/L Carbon Dioxide Level 26 21-32 mmol/L Anion Gap 6.0 3-11 mmol/L Blood Urea Nitrogen 20 7-18 mg/dl Creatinine 1.13 0.60-1.20 mg/dl Est Creatinine Clear Calc Drug Dose 34.5 ml/min Estimated GFR () 54.3 Estimated GFR (Non- 46.8 BUN/Creatinine Ratio 17.3 10-20 Random Glucose 100 70-99 mg/dl Calcium Level 9.1 8.5-10.1 mg/dl Total Bilirubin 0.7 0.2-1 mg/dl Aspartate Amino Transf (AST/SGOT) 15 15-37 U/L Alanine Aminotransferase (ALT/SGPT) 16 12-78 U/L Alkaline Phosphatase 81 45-117 U/L Troponin I < 0.015 0-0.045 ng/ml Total Protein 6.6 6.4-8.2 gm/dl Albumin 3.2 3.4-5.0 gm/dl Globulin 3.4 2.5-4.0 gm/dl Albumin/Globulin Ratio 1.0 0.9-2 Urine Color YELLOW Urine Appearance CLEAR CLEAR Urine pH 5.5 4.5-7.5 Urine Specific [place] 1.015 1.000-1.030 Urine Protein NEG NEG Urine Glucose (UA) NEG NEG Urine Ketones NEG NEG Urine Occult Blood NEG NEG Urine Nitrite NEG NEG Urine Bilirubin NEG NEG Urine Urobilinogen NEG NEG Urine Leukocyte Esterase NEG NEG Microbiology Results 08/06/17 Blood Culture, Received Pending 08/06/17 Blood Culture, Received Pending Diagnostic Radiology SINGLE VIEW CHEST CLINICAL HISTORY: Dyspnea. FINDINGS: An AP, portable, upright chest radiograph is compared to study dated 06/17/2016 and correlated with chest CT dated 09/19/2016. The examination is degraded by portable technique and patient rotation. The heart is mildly enlarged and there is atherosclerotic calcification of the thoracic aorta. The pulmonary vasculature is noncongested. Advanced emphysema and chronic interstitial thickening are similar to previous. There is patchy airspace consolidation at the left lung base with an associated left pleural effusion. The right lung is grossly clear. There is no pneumothorax. The skeletal structures are osteopenic. Degenerative change and scoliosis is noted throughout the thoracic spine. IMPRESSION: 1. There is patchy airspace consolidation at the left lung base with associated pleural effusion. The appearance is typical for pneumonia/aspiration pneumonitis. Clinical correlation will be required and radiographic follow-up to resolution is recommended. 2. The right lung appears clear. 3. Cardiomegaly and advanced emphysema. CT ANGIOGRAM OF THE CHEST CLINICAL HISTORY: Atypical chest pain. Hemoptysis. COMPARISON STUDY: Chest x-ray dated 08/06/2017. Chest CT scans dated 09/19/2016 and 09/01/2009. TECHNIQUE: Following the IV administration of 83 cc of Optiray 320, CT angiogram of the chest was performed from the upper abdomen to the thoracic inlet utilizing the pulmonary embolus protocol. Images are reviewed in the axial, sagittal, and coronal planes. 3-D MIPS images are created and assessed. IV contrast was administered without complication. A dose lowering technique was utilized adhering to the principles of ALARA. CT DOSE: 184.46 mGy.cm FINDINGS: Thyroid: Imaged portions of the thyroid gland are normal in size and attenuation. Thoracic aorta: There is atherosclerotic calcification of the thoracic aorta, which is normal in caliber and demonstrates standard 3-vessel arch anatomy. No dissection is seen. Pulmonary vasculature: The pulmonary trunk is dilated, measuring 3.1 cm in transverse diameter. This suggests pulmonary artery hypertension. There are no filling defects identified in main, lobar, or segmental pulmonary branches to suggest pulmonary embolus. Heart: The heart is enlarged and there is trace pericardial effusion. There are coronary artery calcifications. Lungs and pleural spaces: Advanced emphysema is identified. There is dense airspace consolidation at the left lung base with a small left pleural effusion. Milder patchy consolidative change is identified in the lingula. The right lung appears clear. The trachea is clear. Fluid/secretions fill the left lower lobe bronchi. Mediastinum: There is no mediastinal lymphadenopathy. Zeynep: Mildly enlarged left hilar nodes measure up to 1.4 cm in short axis. Axillae: There is no axillary lymphadenopathy. Upper abdomen: Cholecystectomy clips are noted. Central intrahepatic biliary ductal dilatation is noted. A small hiatal hernia is observed. Lobular soft tissue nodule below the left hemidiaphragm likely resent splenules. Skeletal structures: The skeletal structures are osteopenic. Degenerative change and scoliosis are noted in the thoracic spine. No lytic or blastic bony lesions are seen. IMPRESSION: 1. There is no evidence of pulmonary embolus in the main, lobar, or segmental pulmonary arteries. 2. Cardiomegaly and advanced emphysema with evidence of pulmonary artery hypertension. 3. There is dense airspace consolidation at the left lung base with a small left pleural effusion. Patchy airspace consolidation is seen in the lingula. The appearance is typical for pneumonia/aspiration pneumonitis. Clinical correlation will be required and radiographic follow-up to resolution is recommended. 4. Fluid/debris fills the left lower lobe airways. Correlate for evidence of aspiration. 5. The right lung appears clear. 6. Mildly enlarged left hilar lymph nodes are likely on a reactive basis. EKG SR 74 Impression Assessment and Plan 77 yo F with chills and blood tinged sputum admitted for pneumonia 1. CAP-patient reports recent dehydration coughing up blood-tinged sputum and some significant fatigue for 2 weeks as well as some chills. She reports after her outpatient MRI and studies yesterday she drank some water and felt rehydrated, however, the blood-tinged sputum this morning concerned her. She did deny any shortness of breath although she is on 2 L nasal cannula which she only uses at night typically. She is in no respiratory distress at this point. She denies any history of wheezing recently and is not currently wheezing on exam. Continue Levaquin for pneumonia treatment. Blood and sputum cultures are pending. 2. Leukocytosis-likely secondary to pneumonia above 3. Hyponatremia likely secondary to possible dehydration as described yesterday. Giving 1 L of normal saline overnight and will recheck PRP in the morning. 4. CKD stage III-at baseline, renally dose meds, avoid nephrotoxic substances. 5. COPD-stable, no wheezing on exam. Continue albuterol as needed and Anoro Ellipto inhaler 6. Depression-continue Lexapro per home regimen 7. Chronic pain-continue high-dose morphine per home regimen, continue gabapentin per home regimen DVT prophylaxis-heparin Full code as discussed with patient and her daughter on a admission [facility] Status VTE Prophylaxis Will order VTE Prophylaxis: Yes
[2017-08-06] MEDS: MoRPHine SULFATE CR 15 MG TAB (MS CONTIN) PO SCH (22:15)
[2017-08-06] MEDS: HEPARIN SOD 5000 UNIT/0.5 ML CARP SQ SCH (22:17)
[2017-08-06] MEDS: GABAPENTIN 600 MG TAB PO SCH (23:00)
[2017-08-06] MEDS ORDERED: TRAZODONE HCL 50 MG TAB PO ONE (23:00)
[2017-08-06 23:06] VITALS: BP 104/63; PULSE 77; TEMP 36.8; O2SAT 93
[2017-08-06 23:35] LABS: INFLUENZA A PCR Neg for Influ A (NEG); INFLUENZA B PCR Neg for Influ B (NEG)
[2017-08-07] MEDS: MoRPHine SULFATE IR 15 MG TAB (IMMEDIATE RELEASE) PO PRN ×3 (02:21→20:52)
[2017-08-07] MEDS: HEPARIN SOD 5000 UNIT/0.5 ML CARP SQ SCH ×3 (06:20→20:53)
[2017-08-07 06:53] LABS: HEMATOCRIT 38.3 % (37-47); HEMOGLOBIN 12.9 g/dL (12.0-16.0); MEAN CELL VOLUME 89.3 fL (80-100); MEAN CORPUSCULAR HEMOGLOBIN 30.1 pg (25-34); MEAN CORPUSCULAR HGB CONC 33.7 g/dl (32-36); MEAN PLATELET VOLUME 9.6 fL (7.4-10.4); PLATELET COUNT 399 K/uL (130-400); RED CELL DISTRIBUTION WIDTH CV 13.6 % (11.5-14.5); RED CELL DISTRIBUTION WIDTH SD 44.6 fL (36.4-46.3); WHITE BLOOD COUNT 11.28 K/uL (4.8-10.8)
[2017-08-07 07:21] VITALS: BP 96/59; PULSE 62; TEMP 36.6; O2SAT 92
[2017-08-07 07:25] LABS: CALCIUM 9.4 mg/dl (8.5-10.1); CREATININE 1.02 mg/dl (0.60-1.20); POTASSIUM 4.5 mmol/L (3.5-5.1)
[2017-08-07] MEDS: FLUTICASONE PROPIONATE NA SPR 16 GM BTL SCH (08:28)
[2017-08-07] MEDS: OMEGA-3 (PURIFIED FISH OIL) 1 GM CAP PO SCH (08:28)
[2017-08-07] MEDS: PANTOprazole SOD 40 MG TAB PO SCH (08:28)
[2017-08-07] MEDS: ATORVASTATIN 10 MG TAB PO SCH (08:28)
[2017-08-07] MEDS: MULTIVITAMIN TAB PO SCH (08:28)
[2017-08-07] MEDS: MoRPHine SULFATE CR 15 MG TAB (MS CONTIN) PO SCH ×2 (08:31→20:41)
[2017-08-07] MEDS: ESCITALOPRAM OXALATE 10 MG TAB PO SCH (08:50)
[2017-08-07] MEDS: GABAPENTIN 600 MG TAB PO SCH ×2 (08:50→20:42)
[2017-08-07 14:33] VITALS: BP 96/53; PULSE 79
[2017-08-07 15:20] VITALS: PULSE 75; TEMP 36.8; O2SAT 89
[2017-08-07] MEDS ORDERED: ZOLPIDEM TARTRATE 5 MG TAB PO ONE (20:15)
--- NOTE | 2017-08-07 22:14 | Progress Note ---
Medicine Progress Note Date & Time of Visit: Aug 07, 2017 at 16:30 . Subjective Persistent cough and dyspnea. Still experiencing hemoptysis. No fever. No anginal symptoms. Experiencing back pain with coughing. No nausea, vomiting, diarrhea. . Objective Last 8 Hrs Date Time Temp Pulse Resp B/P (MAP) Pulse Ox O2 Delivery O2 Flow Rate FiO2 08/07/17 16:20 Nasal Cannula 2.0 08/07/17 15:20 36.8 75 20 89 Nasal Cannula 2.0 08/07/17 14:33 79 96/53 (67) Physical Exam: General-lying in bed, no acute distress Lungs-diffuse moderate wheezing; no respiratory distress Cardiovascular- RRR; no gallop appreciated; no JVD; no pretibial edema Abdomen- + bowel sounds, soft, nontender Extremities- no cyanosis; no calf tenderness Neuro- alert, oriented Skin- warm & dry . Laboratory Results: Last 24 Hours Test 08/07/17 06:18 White Blood Count 11.28 K/uL Red Blood Count 4.29 M/uL Hemoglobin 12.9 g/dL Hematocrit 38.3 % Mean Corpuscular Volume 89.3 fL Mean Corpuscular Hemoglobin 30.1 pg Mean Corpuscular Hemoglobin Concent 33.7 g/dl RDW Standard Deviation 44.6 fL RDW Coefficient of Variation 13.6 % Platelet Count 399 K/uL Mean Platelet Volume 9.6 fL Sodium Level 134 mmol/L Potassium Level 4.5 mmol/L Chloride Level 104 mmol/L Carbon Dioxide Level 27 mmol/L Anion Gap 3.0 mmol/L Blood Urea Nitrogen 18 mg/dl Creatinine 1.02 mg/dl Est Creatinine Clear Calc Drug Dose 38.2 ml/min Estimated GFR () 61.4 Estimated GFR (Non- 53.0 BUN/Creatinine Ratio 17.4 Random Glucose 89 mg/dl Calcium Level 9.4 mg/dl Date/Time Source Procedure Growth Status 08/07/17 09:57 Sputum Expectorated Sputum Gram Stain Pending Received 08/07/17 09:57 Sputum Expectorated Sputum Sputum Culture Pending Received Assessment & Plan PNEUMONIA Chest x-ray and CT demonstrated emphysema and infiltrates in the lingula and left lower lobe. CT also demonstrated debris in the left lower lobe airways. Radiographic findings suggest aspiration pneumonia. Blood cultures negative so far. Sputum culture pending. Currently receiving levofloxacin; change antibiotics to include anaerobic coverage if condition does not improve. HEMOPTYSIS Most likely secondary to pneumonia. History of adenocarcinoma of the lung. Check sputum cytology. COPD / PULMONARY HYPERTENSION Severe COPD, on home O2 2 L/min at night. Exacerbation secondary to pneumonia. Add prednisone 40 mg daily. Bronchodilators as needed. Titrate supplemental oxygen. CHRONIC BACK PAIN Continue usual analgesics. VTE PROPHYLAXIS SQ enoxaparin. Ambulate. DISPOSITION Anticipated discharge to home. Patient interested in pulmonary rehab. Internal Medicine follow-up with Dr. Ortega. . Current Inpatient Medications: Current Inpatient Medications Medications (Trade) Dose Ordered Sig/Lan Route Start Time Stop Time Status Last Admin Dose Admin Ioversol (Optiray 320) 100 ml UD PRN IV 08/06/17 16:30 08/10/17 16:29 Acetaminophen (Tylenol Tab) 650 mg Q4H PRN PO 08/06/17 20:00 09/05/17 19:59 Polyethylene (Miralax Powder Packet) 17 gm DAILY PRN PO 08/06/17 20:00 09/05/17 19:59 Ondansetron HCl (Zofran Inj) 4 mg Q6H PRN IV 08/06/17 20:00 09/05/17 19:59 Heparin Sodium (Porcine) (Heparin Sq 5000 Unit/0.5ml) 5,000 unit Q8 SQ 08/06/17 22:00 09/05/17 21:59 08/07/17 20:53 5,000 UNIT Levofloxacin (Consult) 1 ea UD PRN N/A 08/06/17 21:14 09/05/17 21:13 Levofloxacin 750 mg/Prmx 150 ml @ 100 mls/hr Q48H IV 08/08/17 20:00 08/16/17 19:59 Atorvastatin Calcium (Lipitor Tab) 10 mg QAM PO 08/07/17 08:00 09/06/17 07:59 08/07/17 08:28 10 MG Escitalopram Oxalate (Lexapro Tab) 10 mg QAM PO 08/07/17 08:00 09/06/17 07:59 08/07/17 08:50 10 MG Fish Oil ([place]-3 (Purified Fish Oil) Cap) 1 gm DAILY PO 08/07/17 08:00 09/06/17 07:59 08/07/17 08:28 1 GM Fluticasone Propionate (Flonase Nasal [place]) 2 sprays DAILY NA 08/07/17 08:00 09/06/17 07:59 08/07/17 08:28 2 SPRAYS Gabapentin (Neurontin Tab) 600 mg BID PO 08/06/17 21:30 09/05/17 21:29 08/07/17 20:42 600 MG Multivitamins (Multivitamin Tab) 1 tab DAILY PO 08/07/17 08:00 09/06/17 07:59 08/07/17 08:28 1 TAB Miscellaneous Information (Order Awaiting Action) 1 ea QS N/A 08/07/17 00:00 09/06/17 00:00 Morphine Sulfate (Oramorph Sr Tab) 30 mg Q12H PO 08/06/17 21:30 08/20/17 21:29 08/07/17 20:41 30 MG Morphine Sulfate (MoRPHine SULFATE IR TAB) 30 mg Q6H PRN PO 08/06/17 21:30 08/20/17 21:29 08/07/17 20:52 30 MG Pantoprazole Sodium (Protonix Tab) 40 mg QAM PO 08/07/17 08:00 09/06/17 07:59 08/07/17 08:28 40 MG
[2017-08-07 23:35] VITALS: BP 142/71; PULSE 83; TEMP 37; O2SAT 90
[2017-08-08] MEDS: HEPARIN SOD 5000 UNIT/0.5 ML CARP SQ SCH (06:46)
[2017-08-08] MEDS: MoRPHine SULFATE IR 15 MG TAB (IMMEDIATE RELEASE) PO PRN ×2 (06:50→16:56)
[2017-08-08 06:51] VITALS: BP 105/63; PULSE 80; TEMP 36.8; O2SAT 91
[2017-08-08 08:00] VITALS: O2SAT 92
[2017-08-08] MEDS: ESCITALOPRAM OXALATE 10 MG TAB PO SCH (08:13)
[2017-08-08] MEDS: MULTIVITAMIN TAB PO SCH (08:13)
[2017-08-08] MEDS: FLUTICASONE/SALMETEROL 250/50 (ADVAIR) 14 PUFF/1 INHALER INH SCH ×2 (08:13→20:32)
[2017-08-08] MEDS: FLUTICASONE PROPIONATE NA SPR 16 GM BTL SCH (08:14)
[2017-08-08] MEDS: PANTOprazole SOD 40 MG TAB PO SCH (08:14)
[2017-08-08] MEDS: ATORVASTATIN 10 MG TAB PO SCH (08:14)
[2017-08-08] MEDS: GABAPENTIN 600 MG TAB PO SCH ×2 (08:14→20:32)
[2017-08-08] MEDS: OMEGA-3 (PURIFIED FISH OIL) 1 GM CAP PO SCH (08:14)
[2017-08-08] MEDS: MoRPHine SULFATE CR 15 MG TAB (MS CONTIN) PO SCH ×2 (09:37→20:31)
[2017-08-08] MEDS: LEVALBUTEROL 0.63MG/3 ML NEB INH SCH ×2 (15:10→18:56)
[2017-08-08 15:11] VITALS: PULSE 88; O2SAT 98
[2017-08-08 15:20] VITALS: BP 93/48; PULSE 84; TEMP 36.6; O2SAT 91
[2017-08-08 19:00] VITALS: PULSE 74; O2SAT 91
--- NOTE | 2017-08-08 19:30 | CONSULTATION REPORT ---
DATE OF CONSULTATION: 08/08/2017 REASON FOR CONSULTATION: COPD and pneumonia. HISTORY OF PRESENT ILLNESS: The patient is a 77-year-old female who is hospitalized at [facility] for exacerbation of her COPD as well as a left lower lobe pneumonia. The patient was admitted through the Emergency Room on 08/06/2017. The patient had according to the ER note for 2 weeks prior had been having difficulty with hemoptysis and in the morning of the ER admission, increased dyspnea, chills, increased fatigue, runny nose, watery eyes, headache. This has been going on for 2 weeks prior to admission, she did not have any fever with this. She had no increased shortness of breath with this. She has no nausea or vomiting or diarrhea. She is a known COPD patient who is [facility]. She is on oxygen at 2 L per minute at nighttime and she is also on Anoro inhaler. When she arrived in the ER, she was slightly hypoxic at 85%. She was placed on 2 L of oxygen and maintains saturation in the 90% range. She did have a chest x-ray done in the ER, which showed a left lower lobe and left basilar infiltrate. She had a CT angiogram done that showed a dense consolidation in the left lower lobe as well. She was given Levaquin in the ER, she was also given saline bowel and decision was made to admit the patient. Regarding her past pulmonary history, the patient was diagnosed with COPD several years ago. She states that she did have pulmonary function testing done within the past year, but she is not sure exactly when it was done. 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 She states that she did follow with oncology and did complete a course of chemotherapy and radiation. She does not remember the medication for this. She has been on oxygen at nighttime for several years at this point. She was previously on Breo for her inhaler and then recently was switched to Anoro and she had done well with this. Apparently, there is some question of whether or not the patient aspirated. When this happened, the patient does remember coughing and choking but does not remember the time when it happened compared to when she developed the illness. PAST MEDICAL HISTORY: Adenocarcinoma of the lung, COPD, chronic pain syndrome, depression, gastroesophageal reflux disease, a history of encephalopathy, hyperlipidemia, insomnia, peripheral neuropathy, scoliosis, hypertension, chronic kidney disease stage III, osteoporosis and pulmonary hypertension. PAST SURGICAL HISTORY: Includes appendectomy, laparoscopic cholecystectomy, hysterectomy, right upper lobectomy, tonsillectomy adrenal gland excision, splenectomy. SOCIAL HISTORY: No alcohol use. The patient does have a longstanding tobacco history, having smoked approximately 50 years at a pack a day. She reports that she no longer smokes continuously; however, she will have a cigarette socially on occasion. FAMILY HISTORY: Includes glaucoma and lung cancer. HOME MEDICATIONS: Include atorvastatin 10 mg daily, Lexapro 10 mg daily, fish oil 2 caps daily, Flonase 2 sprays each nostril daily, gabapentin 600 mg twice daily, oxygen 2 L by nasal cannula at bedtime, morphine sulfate extended release 1 tab q 12 hours, multivitamin daily, omeprazole 20 mg daily, Anoro 1 puff daily, glucosamine 2 tabs daily, morphine sulfate IR 30 mg q. 6 hours as needed for pain. ALLERGIES: PENICILLINS, PROCAINE, AND CODEINE. REVIEW OF SYSTEMS: As above, otherwise unremarkable. PHYSICAL EXAMINATION: GENERAL: The patient is a 77-year-old female lying in bed. She does have oxygen on. She is interactive and cooperative. She is alert and oriented. No significant respiratory distress. She is able to complete sentences without difficulty. VITAL SIGNS: Temp 36.6, pulse 84, respirations 22, blood pressure 93/48, pulse ox 92% on 2 L. HEENT: Pupils equal, round, and react to light and accommodation. Extraocular movements intact. [place] moist gingival and buccal mucosa. NECK: Supple. No mass, no adenopathy, no bruit. CHEST: The patient does have some mild diffuse wheezing throughout. No rale or rhonchi noted. Some of the wheezing does clear with cough. CARDIOVASCULAR: Regular rate and rhythm. There are no murmurs, gallops, or rubs appreciated. ABDOMEN: Bowel sounds are present. Abdomen soft, nontender. No guarding, rigidity, or organomegaly. EXTREMITIES: No erythema, no edema, no cyanosis or clubbing. NEUROLOGIC: Cranial nerves II through XII grossly intact. No focal deficit noted. LABORATORY DATA: Shows a white count of 11,000, H and H 12.9 and 38.3, platelet count 399, BUN 18, creatinine 1.02. Influenza A and B negative. Preliminary sputum culture showing moderate normal rani. Pathology on sputum is pending. IMAGING: The chest x-ray and CTA as discussed above. IMPRESSION: 1. This is a 77-year-old female with COPD who presents with a left lower lobe pneumonia. There is some question of aspiration. According to the patient, she did have a video swallow done or some type of swallowing evaluation, which was negative for aspiration. We do not have any report of that at this time. At this point, she is improving with her current choice of antibiotic, which is levofloxacin, so will continue for now. If she does not continue to show improvement then consider switching to something of better coverage. She is on prednisone 40 mg daily. She seems to be doing well with this and will continue this. I think she would benefit from a flutter valve to help loosen the secretions. I would give consideration to a vibration vest but with her scoliosis as well as her chronic back pain I do think that would be beneficial for her at this time. I think it would cause her more discomfort than provide relief. This was discussed with her as a possibility of something we can try later on. She is agreeable to this. She is currently getting nebulization in the form of albuterol 4 times a day routinely. I would continue this and leave it as it is. 2. Regards to the aspiration, I would like to see the swallow study. 3. The patient with chronic obstructive pulmonary disease. At this point, she has followed with pulmonary at [facility]. There was some talk of redoing pulmonary rehabilitation. I will see if we can do. The patient reports that she has done pulmonary rehabilitation once before. I am not sure if they will cover her to have pulmonary rehab again, but we will look into. I would like to get her most recent pulmonary function test as well. 4. Hypoxia secondary to the pneumonia. She does have nocturnal hypoxia and is on oxygen at 2 L at nighttime. Hemoptysis, I think is secondary to her infection. At this point, we will continue to monitor. The patient will look into pulmonary rehabilitation. We will see if we get previous records as well. I would like to add in a flutter valve to see if we can loosen secretions. We may want to consider adding something like Mucinex or even dornase in the future if symptoms do not seem to be responding. Patient was seen examined and above plan agreed upon. [facility]
[2017-08-08] MEDS ORDERED: LEVOFLOXACIN 750MG / D5W IV SCH (20:00)
--- NOTE | 2017-08-08 20:09 | Progress Note ---
Medicine Progress Note Date & Time of Visit: Aug 08, 2017 at 12:00 . Subjective No fever. Persistent cough, sometimes with hemoptysis Tires easily. Dyspneic with minimal exertion. No chest pain. Nausea, vomiting, diarrhea. Chronic back pain. . Objective Last 8 Hrs Date Time Temp Pulse Resp B/P (MAP) Pulse Ox O2 Delivery O2 Flow Rate FiO2 08/08/17 19:00 74 18 91 Nasal Cannula 2.0 08/08/17 16:30 Nasal Cannula 2.0 08/08/17 15:20 36.6 84 22 93/48 (63) 91 Nasal Cannula 2.0 08/08/17 15:11 88 18 98 Nasal Cannula 2.0 Physical Exam: General- no acute distress Lungs- diffuse moderate wheezing; no respiratory distress Cardiovascular- RRR; no gallop appreciated; no JVD; no pretibial edema Abdomen- + bowel sounds, soft, nontender Extremities- no cyanosis; no calf tenderness Neuro- alert, oriented Skin- warm & dry . Assessment & Plan PNEUMONIA Chest x-ray and CT demonstrated emphysema and infiltrates in the lingula and left lower lobe. CT also demonstrated debris in the left lower lobe airways. Radiographic findings suggest aspiration pneumonia. Blood cultures negative so far. Sputum culture pending. Currently receiving levofloxacin; change antibiotics to include anaerobic coverage if condition does not improve. SUSPECTED ASPIRATION CT findings concerning for pulmonary aspiration. Bedside swallowing evaluation done by ROPING TENDER- no apparent signs of aspiration during their assessment. Continue ROPING TENDER recommendations with safe swallowing strategies, regular diet, thin liquids. Given CT findings, will request videofluoroscopy. HEMOPTYSIS Most likely secondary to pneumonia. History of adenocarcinoma of the lung. Check sputum cytology. COPD / PULMONARY HYPERTENSION Severe COPD, on home O2 2 L/min at night. Exacerbation secondary to pneumonia. Continue prednisone 40 mg daily. Bronchodilators as needed. Titrate supplemental oxygen. Outpatient pulmonary rehab anticipated. CHRONIC BACK PAIN Continue usual analgesics. VTE PROPHYLAXIS SQ enoxaparin. Ambulate. DISPOSITION Anticipated discharge to home. Patient interested in pulmonary rehab. Internal Medicine follow-up with Dr. Ortega. . Current Inpatient Medications: Current Inpatient Medications Medications (Trade) Dose Ordered Sig/Lan Route Start Time Stop Time Status Last Admin Dose Admin Ioversol (Optiray 320) 100 ml UD PRN IV 08/06/17 16:30 08/10/17 16:29 Acetaminophen (Tylenol Tab) 650 mg Q4H PRN PO 08/06/17 20:00 09/05/17 19:59 Polyethylene (Miralax Powder Packet) 17 gm DAILY PRN PO 08/06/17 20:00 09/05/17 19:59 Ondansetron HCl (Zofran Inj) 4 mg Q6H PRN IV 08/06/17 20:00 09/05/17 19:59 Levofloxacin (Consult) 1 ea UD PRN N/A 08/06/17 21:14 09/05/17 21:13 Levofloxacin 750 mg/Prmx 150 ml @ 100 mls/hr Q48H IV 08/08/17 20:00 08/16/17 19:59 Atorvastatin Calcium (Lipitor Tab) 10 mg QAM PO 08/07/17 08:00 09/06/17 07:59 08/08/17 08:14 10 MG Escitalopram Oxalate (Lexapro Tab) 10 mg QAM PO 08/07/17 08:00 09/06/17 07:59 08/08/17 08:13 10 MG Fish Oil ([place]-3 (Purified Fish Oil) Cap) 1 gm DAILY PO 08/07/17 08:00 09/06/17 07:59 08/08/17 08:14 1 GM Fluticasone Propionate (Flonase Nasal [place]) 2 sprays DAILY NA 08/07/17 08:00 09/06/17 07:59 08/08/17 08:14 2 SPRAYS Gabapentin (Neurontin Tab) 600 mg BID PO 08/06/17 21:30 09/05/17 21:29 08/08/17 08:14 600 MG Multivitamins (Multivitamin Tab) 1 tab DAILY PO 08/07/17 08:00 09/06/17 07:59 08/08/17 08:13 1 TAB Miscellaneous Information (Order Awaiting Action) 1 ea QS N/A 08/07/17 00:00 09/06/17 00:00 Morphine Sulfate (Oramorph Sr Tab) 30 mg Q12H PO 08/06/17 21:30 08/20/17 21:29 08/08/17 09:37 30 MG Morphine Sulfate (MoRPHine SULFATE IR TAB) 30 mg Q6H PRN PO 08/06/17 21:30 08/20/17 21:29 08/08/17 16:56 30 MG Pantoprazole Sodium (Protonix Tab) 40 mg QAM PO 08/07/17 08:00 09/06/17 07:59 08/08/17 08:14 40 MG Prednisone (PredniSONE TAB) 40 mg DAILY PO 08/08/17 08:00 09/07/17 07:59 08/08/17 08:13 40 MG Salmeterol Xinafoate/ Fluticasone (Advair Diskus 250/50 Inh) 1 puff BID INH 08/08/17 08:00 09/07/17 07:59 08/08/17 08:13 1 PUFF Levalbuterol (Xopenex 0.63 Mg/ 3 Ml Neb) 0.63 mg QIDR INH 08/08/17 16:00 09/07/17 15:59 08/08/17 18:56 0.63 MG
[2017-08-08] MEDS ORDERED: ZOLPIDEM TARTRATE 5 MG TAB PO ONE (22:00)
[2017-08-08 23:16] VITALS: BP 133/71; PULSE 92; TEMP 36.9; O2SAT 94
[2017-08-09] VITALS (7 sets, daily range): BP systolic 112–153; BP diastolic 64–78; PULSE 66–82; TEMP 36.6–37.1; O2SAT 90–96
[2017-08-09] MEDS: LEVALBUTEROL 0.63MG/3 ML NEB INH SCH ×4 (07:09→19:59)
[2017-08-09] MEDS: FLUTICASONE/SALMETEROL 250/50 (ADVAIR) 14 PUFF/1 INHALER INH SCH ×2 (08:44→22:33)
[2017-08-09] MEDS: MULTIVITAMIN TAB PO SCH (08:44)
[2017-08-09] MEDS: FLUTICASONE PROPIONATE NA SPR 16 GM BTL SCH (08:44)
[2017-08-09] MEDS: OMEGA-3 (PURIFIED FISH OIL) 1 GM CAP PO SCH (08:44)
[2017-08-09] MEDS: ESCITALOPRAM OXALATE 10 MG TAB PO SCH (08:45)
[2017-08-09] MEDS: PANTOprazole SOD 40 MG TAB PO SCH (08:45)
[2017-08-09] MEDS: GABAPENTIN 600 MG TAB PO SCH ×2 (08:45→21:44)
[2017-08-09] MEDS: ATORVASTATIN 10 MG TAB PO SCH (08:45)
[2017-08-09] MEDS: MoRPHine SULFATE CR 15 MG TAB (MS CONTIN) PO SCH ×2 (08:48→21:43)
[2017-08-09] MEDS: MoRPHine SULFATE IR 15 MG TAB (IMMEDIATE RELEASE) PO PRN (16:14)
--- NOTE | 2017-08-09 18:19 | PULMONARY PROGRESS NOTE ---
DATE: 08/09/2017 Patient was actually seen with Dr. Everton Vyas today. PROBLEM LIST: Includes left lower lobe pneumonia with possible aspiration, severe COPD, hypoxia secondary to pneumonia. SUBJECTIVE: Patient is very sleepy today. Patient is on high-dose pain medications and this is not unusual for her. She was arousable and answered questions appropriately. She did not have any difficulty with her breathing. She feels her breathing is much, much better today. Still has a little bit of cough and congestion. No significant wheezing, no chest heaviness or tightness. No chest discomfort. She denies any other concerns or problems. No GI difficulty. No nausea or vomiting, no swelling in her extremities. OBJECTIVE: GENERAL: Patient is a 77-year-old female in no acute distress, lying in bed. She was sleeping, but aroused easily. She was able to complete sentences without becoming dyspneic. VITAL SIGNS: Temperature 36.6, pulse 74, respirations 16, blood pressure is 149/78, pulse ox 94% on 2 liters. NECK: Supple. No mass, adenopathy or bruit. CHEST: Actually improved breath sounds bilaterally, still a few coarse wheezes in the left base, otherwise clear. No rale or rhonchi noted. CARDIOVASCULAR: Regular rate and rhythm. No murmurs, gallops or rubs. ABDOMEN: Bowel sounds present. Abdomen soft, nontender. No guarding, rigidity or organomegaly. EXTREMITIES: No erythema, no edema. No new lab data. No new radiologic data. IMPRESSION: A 77-year-old female with known oxygen-dependent chronic obstructive pulmonary disease at night, came in with left lower lobe pneumonia and hypoxia, felt secondary to possible aspiration. Patient is showing significant improvement on Levaquin. At this point, I would recommend to continue this, continue aggressive pulmonary toilet. At this point, continue prednisone 40 mg daily with a slow taper as she tolerates. Case was discussed with Dr. Everton Vyas. Patient was seen in evaluation agree with above plan MTDD
--- NOTE | 2017-08-09 20:52 | Progress Note ---
Medicine Progress Note Date & Time of Visit: Aug 09, 2017 at 07:45 . Subjective Somnolent this morning. Patient indicates that she did not get much sleep last night. No fever. Cough improved. Less short of breath. No chest pain. No nausea, vomiting, diarrhea. . Objective Last 8 Hrs Date Time Temp Pulse Resp B/P (MAP) Pulse Ox O2 Delivery O2 Flow Rate FiO2 08/09/17 16:57 78 18 96 Room Air 08/09/17 16:30 Nasal Cannula 2.0 08/09/17 15:13 36.7 79 20 112/64 (80) 92 Nasal Cannula 2.0 Physical Exam: General- no acute distress Lungs- diffuse mild-moderate wheezing; no respiratory distress Cardiovascular- RRR; no gallop appreciated; no JVD; no pretibial edema Abdomen- + bowel sounds, soft, nontender Extremities- no cyanosis; no calf tenderness Neuro- somnolent Skin- warm & dry . Assessment & Plan PNEUMONIA Chest x-ray and CT demonstrated emphysema and infiltrates in the lingula and left lower lobe. CT also demonstrated debris in the left lower lobe airways. Radiographic findings suggest aspiration pneumonia. Blood cultures negative so far. Sputum culture pending. Currently receiving levofloxacin; change antibiotics to include anaerobic coverage if condition does not improve. SUSPECTED ASPIRATION CT findings concerning for pulmonary aspiration. Bedside swallowing evaluation done by COLLEGE COUNSELOR- no apparent signs of aspiration during their assessment. Continue COLLEGE COUNSELOR recommendations with safe swallowing strategies, regular diet, thin liquids. Given CT findings, will request videofluoroscopy. HEMOPTYSIS Most likely secondary to pneumonia. History of adenocarcinoma of the lung. Check sputum cytology. COPD / PULMONARY HYPERTENSION Severe COPD, on home O2 2 L/min at night. Exacerbation secondary to pneumonia. Continue prednisone 40 mg daily. Bronchodilators as needed. Titrate supplemental oxygen. Outpatient pulmonary rehab anticipated. CHRONIC BACK PAIN Continue usual analgesics. VTE PROPHYLAXIS SQ enoxaparin. Ambulate. DISPOSITION Anticipated discharge to home. Patient interested in pulmonary rehab. Internal Medicine follow-up with Dr. Ortega. . Current Inpatient Medications: Current Inpatient Medications Medications (Trade) Dose Ordered Sig/Lan Route Start Time Stop Time Status Last Admin Dose Admin Ioversol (Optiray 320) 100 ml UD PRN IV 08/06/17 16:30 08/10/17 16:29 Acetaminophen (Tylenol Tab) 650 mg Q4H PRN PO 08/06/17 20:00 5/10/18 19:59 Polyethylene (Miralax Powder Packet) 17 gm DAILY PRN PO 08/06/17 20:00 09/05/17 19:59 Ondansetron HCl (Zofran Inj) 4 mg Q6H PRN IV 08/06/17 20:00 09/05/17 19:59 Levofloxacin (Consult) 1 ea UD PRN N/A 08/06/17 21:14 09/05/17 21:13 Atorvastatin Calcium (Lipitor Tab) 10 mg QAM PO 08/07/17 08:00 09/06/17 07:59 08/09/17 08:45 10 MG Escitalopram Oxalate (Lexapro Tab) 10 mg QAM PO 08/07/17 08:00 09/06/17 07:59 08/09/17 08:45 10 MG Fish Oil ([place]-3 (Purified Fish Oil) Cap) 1 gm DAILY PO 08/07/17 08:00 09/06/17 07:59 08/09/17 08:44 1 GM Fluticasone Propionate (Flonase Nasal [place]) 2 sprays DAILY NA 08/07/17 08:00 09/06/17 07:59 08/09/17 08:44 2 SPRAYS Gabapentin (Neurontin Tab) 600 mg BID PO 08/06/17 21:30 09/05/17 21:29 08/09/17 08:45 600 MG Multivitamins (Multivitamin Tab) 1 tab DAILY PO 08/07/17 08:00 09/06/17 07:59 08/09/17 08:44 1 TAB Miscellaneous Information (Order Awaiting Action) 1 ea QS N/A 08/07/17 00:00 09/06/17 00:00 Morphine Sulfate (Oramorph Sr Tab) 30 mg Q12H PO 08/06/17 21:30 08/20/17 21:29 08/09/17 08:48 30 MG Morphine Sulfate (MoRPHine SULFATE IR TAB) 30 mg Q6H PRN PO 08/06/17 21:30 08/20/17 21:29 08/09/17 16:14 30 MG Pantoprazole Sodium (Protonix Tab) 40 mg QAM PO 08/07/17 08:00 09/06/17 07:59 08/09/17 08:45 40 MG Prednisone (PredniSONE TAB) 40 mg DAILY PO 08/08/17 08:00 09/07/17 07:59 08/09/17 08:44 40 MG Salmeterol Xinafoate/ Fluticasone (Advair Diskus 250/50 Inh) 1 puff BID INH 08/08/17 08:00 09/07/17 07:59 08/09/17 08:44 1 PUFF Levalbuterol (Xopenex 0.63 Mg/ 3 Ml Neb) 0.63 mg QIDR INH 08/08/17 16:00 09/07/17 15:59 08/09/17 16:00 0.63 MG Levofloxacin (Levaquin Tab) 750 mg Q2D@1999 PO 08/10/17 20:00 08/12/17 23:59
[2017-08-10] VITALS (9 sets, daily range): BP systolic 103–142; BP diastolic 62–74; PULSE 63–95; TEMP 36.5–36.8; O2SAT 91–97
[2017-08-10 06:51] LABS: CALCIUM 9.9 mg/dl (8.5-10.1); CREATININE 0.99 mg/dl (0.60-1.20)
[2017-08-10] MEDS: LEVALBUTEROL 0.63MG/3 ML NEB INH SCH ×4 (06:51→19:25)
[2017-08-10] MEDS: MoRPHine SULFATE CR 15 MG TAB (MS CONTIN) PO SCH ×2 (08:45→20:48)
[2017-08-10] MEDS: PANTOprazole SOD 40 MG TAB PO SCH (08:46)
[2017-08-10] MEDS: ATORVASTATIN 10 MG TAB PO SCH (08:46)
[2017-08-10] MEDS: MULTIVITAMIN TAB PO SCH (08:46)
[2017-08-10] MEDS: GABAPENTIN 600 MG TAB PO SCH ×2 (08:46→19:47)
[2017-08-10] MEDS: OMEGA-3 (PURIFIED FISH OIL) 1 GM CAP PO SCH (08:47)
[2017-08-10] MEDS: ESCITALOPRAM OXALATE 10 MG TAB PO SCH (08:47)
[2017-08-10] MEDS: FLUTICASONE/SALMETEROL 250/50 (ADVAIR) 14 PUFF/1 INHALER INH SCH ×2 (08:48→19:45)
[2017-08-10] MEDS: FLUTICASONE PROPIONATE NA SPR 16 GM BTL SCH (08:48)
--- NOTE | 2017-08-10 13:00 | Pulmonology Progress Note ---
Pulmonary Progress Note Date of Service Aug 10, 2017. Attending Dr. Vyas Subjective Patient notes slow improvement overall pulmonary status but continues to note some hemoptysis, productive sputum and dyspnea Objective Patient was sitting up in bed showing no signs of respiratory insufficiency and able to have full conversation without tachypnea/accessory muscle use: Vital signs: Stable on room air Respiratory: Bronchial/rhonchi noted in the left lower lobe Cardiac: S1-S2 with distant heart sounds unable to auscultate for murmurs rubs or gallops Abdomen: Positive bowel sounds soft nontender Otoscopic scope examination: Bilateral nasal erythema some mild dried blood and posterior oral pharyngeal cobblestoning Medications: Level flux since 750 mg, Xopenex nebulized, prednisone 40 mg daily , Advair disc 1 puff b.i.d. 250/50, Flonase nasal spray, pantoprazole 40 mg ABG 08/10/2017: 7.45/42/78 on 2 liters nasal cannula Assessment & Plan 77-year-old female admitted for acute on chronic respiratory insufficiency and left lower lobe infiltrate/aspiration: 1. Respiratory insufficiency: Patient is currently responding well to therapy but after re-examining her CT I do believe there is a notable obstruction in the left lower lobe. Do this I would like to move forward with bronchoscopic evaluation on Saturday08/12/2017. 2. Aspiration pneumonia: Patient most likely has aspiration pneumonia but is currently responding to Levaquin 750 mg clinically. This time I suggest we continue to monitor this patient but she notes clinical deterioration we should introduce clindamycin into her regimen. Once again suggest we perform bronchoscopic evaluation Saturday08/12/2017. Data Medications: Current Inpatient Medications Medications (Trade) Dose Ordered Sig/Lan Route Start Time Stop Time Status Last Admin Dose Admin Ioversol (Optiray 320) 100 ml UD PRN IV 08/06/17 16:30 08/10/17 16:29 Acetaminophen (Tylenol Tab) 650 mg Q4H PRN PO 08/06/17 20:00 09/05/17 19:59 Polyethylene (Miralax Powder Packet) 17 gm DAILY PRN PO 08/06/17 20:00 09/05/17 19:59 Ondansetron HCl (Zofran Inj) 4 mg Q6H PRN IV 08/06/17 20:00 09/05/17 19:59 Levofloxacin (Consult) 1 ea UD PRN N/A 08/06/17 21:14 09/05/17 21:13 Atorvastatin Calcium (Lipitor Tab) 10 mg QAM PO 08/07/17 08:00 09/06/17 07:59 08/10/17 08:46 10 MG Escitalopram Oxalate (Lexapro Tab) 10 mg QAM PO 08/07/17 08:00 09/06/17 07:59 08/10/17 08:47 10 MG Fish Oil ([place]-3 (Purified Fish Oil) Cap) 1 gm DAILY PO 08/07/17 08:00 09/06/17 07:59 08/10/17 08:47 1 GM Fluticasone Propionate (Flonase Nasal [place]) 2 sprays DAILY NA 08/07/17 08:00 09/06/17 07:59 08/10/17 08:48 2 SPRAYS Gabapentin (Neurontin Tab) 600 mg BID PO 08/06/17 21:30 09/05/17 21:29 08/10/17 08:46 600 MG Multivitamins (Multivitamin Tab) 1 tab DAILY PO 08/07/17 08:00 09/06/17 07:59 08/10/17 08:46 1 TAB Miscellaneous Information (Order Awaiting Action) 1 ea QS N/A 08/07/17 00:00 09/06/17 00:00 Morphine Sulfate (Oramorph Sr Tab) 30 mg Q12H PO 08/06/17 21:30 08/20/17 21:29 08/10/17 08:45 30 MG Pantoprazole Sodium (Protonix Tab) 40 mg QAM PO 08/07/17 08:00 09/06/17 07:59 08/10/17 08:46 40 MG Prednisone (PredniSONE TAB) 40 mg DAILY PO 08/08/17 08:00 09/07/17 07:59 08/10/17 08:46 40 MG Salmeterol Xinafoate/ Fluticasone (Advair Diskus 250/50 Inh) 1 puff BID INH 08/08/17 08:00 09/07/17 07:59 08/10/17 08:48 1 PUFF Levalbuterol (Xopenex 0.63 Mg/ 3 Ml Neb) 0.63 mg QIDR INH 08/08/17 16:00 09/07/17 15:59 4/14/18 11:29 0.63 MG Levofloxacin (Levaquin Tab) 750 mg Q2D@2000 PO 08/10/17 20:00 08/12/17 23:59 Morphine Sulfate (MoRPHine SULFATE IR TAB) 15 mg Q6H PRN PO 08/10/17 04:45 08/24/17 04:44 Vital Signs: Date Time Temp Pulse Resp B/P (MAP) Pulse Ox O2 Delivery O2 Flow Rate FiO2 08/10/17 11:29 76 18 97 Nasal Cannula 2.0 08/10/17 08:00 94 Room Air 08/10/17 06:56 36.5 63 18 142/74 (96) 94 2.0 08/10/17 06:54 78 18 95 Room Air 08/09/17 23:59 Nasal Cannula 2.0 08/09/17 23:13 37.1 75 20 153/64 (93) 91 Room Air 08/09/17 16:57 78 18 96 Room Air 08/09/17 16:30 Nasal Cannula 2.0 08/09/17 15:13 36.7 79 20 112/64 (80) 92 Nasal Cannula 2.0 Laboratory Results: Last 24 Hours Test 08/10/17 06:10 Arterial Blood pH 7.45 Arterial Blood Partial Pressure CO2 42 mmHg Arterial Blood Partial Pressure O2 78 mm/Hg Arterial Blood HCO3 28 mmol/L Arterial Blood Oxygen Saturation 95.3 % Arterial Blood Base Excess 3.6 mEq/L Arterial Blood Gas Delivery 2L Jonatan Test POS Sodium Level 132 mmol/L Potassium Level 4.0 mmol/L Chloride Level 101 mmol/L Carbon Dioxide Level 27 mmol/L Anion Gap 4.0 mmol/L Blood Urea Nitrogen 20 mg/dl Creatinine 0.99 mg/dl Est Creatinine Clear Calc Drug Dose 39.4 ml/min Estimated GFR () 63.7 Estimated GFR (Non- 55.0 BUN/Creatinine Ratio 20.1 Random Glucose 90 mg/dl Calcium Level 9.9 mg/dl
--- NOTE | 2017-08-10 18:42 | Progress Note ---
Medicine Progress Note Date & Time of Visit: Aug 10, 2017 at 14:50 . Subjective CC: Follow-up visit for pneumonia and other problems. HPI: Feels better. Cough and dyspnea improved, but still having some hemoptysis. No fever or chills. Starting to ambulate more. ROS: General- as noted above in HPI Resp- as noted above in HPI Cardiac- no chest pain, no edema GI- no nausea, no vomiting, no diarrhea, no constipation - no dysuria, no difficulty voiding . Objective Last 8 Hrs Date Time Temp Pulse Resp B/P (MAP) Pulse Ox O2 Delivery O2 Flow Rate FiO2 08/10/17 16:00 97 Room Air 08/10/17 14:54 36.5 75 18 103/62 (76) 97 Room Air 08/10/17 14:43 76 18 95 Room Air 08/10/17 11:29 76 18 97 Nasal Cannula 2.0 Physical Exam: General- no acute distress Lungs- diffuse mild wheezing; no respiratory distress Cardiovascular- RRR; no gallop appreciated; no JVD; no pretibial edema Abdomen- + bowel sounds, soft, nontender Extremities- no cyanosis; no calf tenderness Neuro-alert, oriented Skin- warm & dry . Laboratory Results: Last 24 Hours Test 08/10/17 06:10 Arterial Blood pH 7.45 Arterial Blood Partial Pressure CO2 42 mmHg Arterial Blood Partial Pressure O2 78 mm/Hg Arterial Blood HCO3 28 mmol/L Arterial Blood Oxygen Saturation 95.3 % Arterial Blood Base Excess 3.6 mEq/L Arterial Blood Gas Delivery 2L Jonatan Test POS Sodium Level 132 mmol/L Potassium Level 4.0 mmol/L Chloride Level 101 mmol/L Carbon Dioxide Level 27 mmol/L Anion Gap 4.0 mmol/L Blood Urea Nitrogen 20 mg/dl Creatinine 0.99 mg/dl Est Creatinine Clear Calc Drug Dose 39.4 ml/min Estimated GFR () 63.7 Estimated GFR (Non- 55.0 BUN/Creatinine Ratio 20.1 Random Glucose 90 mg/dl Calcium Level 9.9 mg/dl Assessment & Plan PNEUMONIA Chest x-ray and CT demonstrated emphysema and infiltrates in the lingula and left lower lobe. CT also demonstrated debris in the left lower lobe airways. Radiographic findings suggest aspiration pneumonia. Blood cultures negative so far. Sputum culture grew normal rani. Currently receiving levofloxacin with improvement. SUSPECTED ASPIRATION CT findings concerning for pulmonary aspiration. Bedside swallowing evaluation done by WELDING MACHINE OPERATOR THERMIT- no apparent signs of aspiration during their assessment. Continue WELDING MACHINE OPERATOR THERMIT recommendations with safe swallowing strategies, regular diet, thin liquids. Given CT findings, will request videofluoroscopy. HEMOPTYSIS Most likely secondary to pneumonia. History of adenocarcinoma of the lung. Sputum cytology. Bronchoscopy recommended to rule out endobronchial lesion. COPD / PULMONARY HYPERTENSION Severe COPD, on home O2 2 L/min at night. Exacerbation secondary to pneumonia. Continue prednisone 40 mg daily. Bronchodilators as needed. Titrate supplemental oxygen. Outpatient pulmonary rehab anticipated. CHRONIC BACK PAIN Episodes of severe lethargy. Usual dose of MS Contin 30 mg every 12 hours continued. Immediate release morphine PRN dose decreased to 15 mg every 6 hours as needed. VTE PROPHYLAXIS SQ enoxaparin initially ordered, but stopped due to hemoptysis. SCD's. Ambulate. DISPOSITION Anticipated discharge to home. Patient interested in pulmonary rehab. Internal Medicine follow-up with Dr. Ortega. . Current Inpatient Medications: Current Inpatient Medications Medications (Trade) Dose Ordered Sig/Lan Route Start Time Stop Time Status Last Admin Dose Admin Acetaminophen (Tylenol Tab) 650 mg Q4H PRN PO 08/06/17 20:00 09/05/17 19:59 Polyethylene (Miralax Powder Packet) 17 gm DAILY PRN PO 08/06/17 20:00 09/05/17 19:59 Ondansetron HCl (Zofran Inj) 4 mg Q6H PRN IV 08/06/17 20:00 09/05/17 19:59 Levofloxacin (Consult) 1 ea UD PRN N/A 08/06/17 21:14 09/05/17 21:13 Atorvastatin Calcium (Lipitor Tab) 10 mg QAM PO 08/07/17 08:00 09/06/17 07:59 08/10/17 08:46 10 MG Escitalopram Oxalate (Lexapro Tab) 10 mg QAM PO 08/07/17 08:00 09/06/17 07:59 08/10/17 08:47 10 MG Fish Oil ([place]-3 (Purified Fish Oil) Cap) 1 gm DAILY PO 08/07/17 08:00 09/06/17 07:59 08/10/17 08:47 1 GM Fluticasone Propionate (Flonase Nasal [place]) 2 sprays DAILY NA 08/07/17 08:00 09/06/17 07:59 08/10/17 08:48 2 SPRAYS Gabapentin (Neurontin Tab) 600 mg BID PO 08/06/17 21:30 09/05/17 21:29 08/10/17 08:46 600 MG Multivitamins (Multivitamin Tab) 1 tab DAILY PO 08/07/17 08:00 09/06/17 07:59 08/10/17 08:46 1 TAB Miscellaneous Information (Order Awaiting Action) 1 ea QS N/A 08/07/17 00:00 09/06/17 00:00 Morphine Sulfate (Oramorph Sr Tab) 30 mg Q12H PO 08/06/17 21:30 08/20/17 21:29 08/10/17 08:45 30 MG Pantoprazole Sodium (Protonix Tab) 40 mg QAM PO 08/07/17 08:00 09/06/17 07:59 08/10/17 08:46 40 MG Prednisone (PredniSONE TAB) 40 mg DAILY PO 08/08/17 08:00 09/07/17 07:59 08/10/17 08:46 40 MG Salmeterol Xinafoate/ Fluticasone (Advair Diskus 250/50 Inh) 1 puff BID INH 08/08/17 08:00 09/07/17 07:59 08/10/17 08:48 1 PUFF Levalbuterol (Xopenex 0.63 Mg/ 3 Ml Neb) 0.63 mg QIDR INH 08/08/17 16:00 09/07/17 15:59 08/10/17 14:43 0.63 MG Levofloxacin (Levaquin Tab) 750 mg Q2D@2000 PO 08/10/17 20:00 08/12/17 23:59 Morphine Sulfate (MoRPHine SULFATE IR TAB) 15 mg Q6H PRN PO 08/10/17 04:45 08/24/17 04:44
[2017-08-10] MEDS: LEVOFLOXACIN 750 MG TAB PO SCH (19:47)
[2017-08-11] VITALS (8 sets, daily range): BP systolic 145–168; BP diastolic 75–82; PULSE 72–102; TEMP 36.7–36.9; O2SAT 92–98
[2017-08-11] MEDS: MoRPHine SULFATE IR 15 MG TAB (IMMEDIATE RELEASE) PO PRN ×3 (00:56→17:11)
[2017-08-11] MEDS: LEVALBUTEROL 0.63MG/3 ML NEB INH SCH ×4 (07:29→18:57)
[2017-08-11 07:38] LABS: CALCIUM 9.6 mg/dl (8.5-10.1); CREATININE 1.05 mg/dl (0.60-1.20); POTASSIUM 3.9 mmol/L (3.5-5.1)
[2017-08-11] MEDS: FLUTICASONE/SALMETEROL 250/50 (ADVAIR) 14 PUFF/1 INHALER INH SCH ×2 (08:26→21:01)
[2017-08-11] MEDS: OMEGA-3 (PURIFIED FISH OIL) 1 GM CAP PO SCH (08:27)
[2017-08-11] MEDS: PANTOprazole SOD 40 MG TAB PO SCH (08:27)
[2017-08-11] MEDS: FLUTICASONE PROPIONATE NA SPR 16 GM BTL SCH (08:27)
[2017-08-11] MEDS: GABAPENTIN 600 MG TAB PO SCH ×2 (08:27→21:02)
[2017-08-11] MEDS: MULTIVITAMIN TAB PO SCH (08:27)
[2017-08-11] MEDS: ATORVASTATIN 10 MG TAB PO SCH (08:27)
[2017-08-11] MEDS: ESCITALOPRAM OXALATE 10 MG TAB PO SCH (08:28)
[2017-08-11] MEDS: MoRPHine SULFATE CR 15 MG TAB (MS CONTIN) PO SCH ×2 (09:37→21:13)
--- NOTE | 2017-08-11 12:17 | Pulmonology Progress Note ---
Pulmonary Progress Note Date of Service Aug 11, 2017. Attending Dr. Vyas Subjective Patient is doing well today with increased overall pulmonary function but did have some hemoptysis over the last 24 hours Objective Patient is sitting up able to walk around the floor no signs of severe respiratory insufficiency but did have episode of hemoptysis Vital signs: Stable on room air Respiratory: Bronchial/rhonchi noted in the left lower lobe Cardiac: S1-S2 with distant heart sounds unable to auscultate for murmurs rubs or gallops Abdomen: Positive bowel sounds soft nontender Otoscopic scope examination: Bilateral nasal erythema some mild dried blood and posterior oral pharyngeal cobblestoning Medications: 1. Levofloxacin 750 mg day 6 2. Xopenex q.i.d. nebulized 3. Prednisone 40 mg p.o. daily 4. Advair 250/51 puff b.i.d. 5. Flonase 2 puffs daily each nostril 6. Protonix 40 mg daily Assessment & Plan 77-year-old female admitted for acute on chronic respiratory insufficiency and left lower lobe infiltrate/aspiration: 1. Respiratory Insufficiency: Patient is currently responding well to therapy and most likely close to her baseline. Continue current medication regimen and slowly taper down on prednisone over the next 7-10 days. Will initiate after bronchoscopic intervention. 2. Aspiration/Hemoptysis: Patient undergo bronchoscopic evaluation on 2017 for possible aspiration/hemoptysis and CT of the thorax. Data Medications: Current Inpatient Medications Medications (Trade) Dose Ordered Sig/Lan Route Start Time Stop Time Status Last Admin Dose Admin Acetaminophen (Tylenol Tab) 650 mg Q4H PRN PO 08/06/17 20:00 09/05/17 19:59 Polyethylene (Miralax Powder Packet) 17 gm DAILY PRN PO 08/06/17 20:00 09/05/17 19:59 Ondansetron HCl (Zofran Inj) 4 mg Q6H PRN IV 08/06/17 20:00 09/05/17 19:59 Levofloxacin (Consult) 1 ea UD PRN N/A 08/06/17 21:14 09/05/17 21:13 Atorvastatin Calcium (Lipitor Tab) 10 mg QAM PO 08/07/17 08:00 09/06/17 07:59 08/11/17 08:27 10 MG Escitalopram Oxalate (Lexapro Tab) 10 mg QAM PO 08/07/17 08:00 09/06/17 07:59 08/11/17 08:28 10 MG Fish Oil ([place]-3 (Purified Fish Oil) Cap) 1 gm DAILY PO 08/07/17 08:00 09/06/17 07:59 08/11/17 08:27 1 GM Fluticasone Propionate (Flonase Nasal [place]) 2 sprays DAILY NA 08/07/17 08:00 09/06/17 07:59 08/11/17 08:27 2 SPRAYS Gabapentin (Neurontin Tab) 600 mg BID PO 08/06/17 21:30 09/05/17 21:29 08/11/17 08:27 600 MG Multivitamins (Multivitamin Tab) 1 tab DAILY PO 08/07/17 08:00 09/06/17 07:59 08/11/17 08:27 1 TAB Miscellaneous Information (Order Awaiting Action) 1 ea QS N/A 08/07/17 00:00 09/06/17 00:00 Morphine Sulfate (Oramorph Sr Tab) 30 mg Q12H PO 08/06/17 21:30 08/20/17 21:29 08/11/17 09:37 30 MG Pantoprazole Sodium (Protonix Tab) 40 mg QAM PO 08/07/17 08:00 09/06/17 07:59 08/11/17 08:27 40 MG Prednisone (PredniSONE TAB) 40 mg DAILY PO 08/08/17 08:00 09/07/17 07:59 08/11/17 08:27 40 MG Salmeterol Xinafoate/ Fluticasone (Advair Diskus 250/50 Inh) 1 puff BID INH 08/08/17 08:00 09/07/17 07:59 08/11/17 08:26 1 PUFF Levalbuterol (Xopenex 0.63 Mg/ 3 Ml Neb) 0.63 mg QIDR INH 08/08/17 16:00 09/07/17 15:59 08/11/17 11:39 0.63 MG Levofloxacin (Levaquin Tab) 750 mg Q2D@2000 PO 08/10/17 20:00 08/12/17 23:59 08/10/17 19:47 750 MG Morphine Sulfate (MoRPHine SULFATE IR TAB) 15 mg Q6H PRN PO 08/10/17 04:45 08/24/17 04:44 08/11/17 08:28 15 MG Vital Signs: Date Time Temp Pulse Resp B/P (MAP) Pulse Ox O2 Delivery O2 Flow Rate FiO2 08/11/17 11:39 84 18 98 Room Air 08/11/17 08:00 95 Room Air 08/11/17 07:29 92 18 95 Room Air 08/11/17 07:21 36.7 72 18 149/82 (104) 94 08/11/17 00:15 Room Air 08/10/17 23:21 36.8 93 20 130/70 (90) 91 2.0 08/10/17 19:25 95 18 95 Room Air 08/10/17 16:00 97 Room Air 08/10/17 14:54 36.5 75 18 103/62 (76) 97 Room Air 08/10/17 14:43 76 18 95 Room Air Laboratory Results: Last 24 Hours Test 08/11/17 06:29 Sodium Level 132 mmol/L Potassium Level 3.9 mmol/L Chloride Level 101 mmol/L Carbon Dioxide Level 27 mmol/L Anion Gap 4.0 mmol/L Blood Urea Nitrogen 17 mg/dl Creatinine 1.05 mg/dl Est Creatinine Clear Calc Drug Dose 37.1 ml/min Estimated GFR () 59.3 Estimated GFR (Non- 51.2 BUN/Creatinine Ratio 15.9 Random Glucose 89 mg/dl Calcium Level 9.6 mg/dl
[2017-08-11] MEDS ORDERED: OXYMETAZOLINE HCL 0.05% NA SPR 15 ML BTL ONE (12:37)
[2017-08-11] MEDS ORDERED: MoRPHine SULFATE IR 15 MG TAB (IMMEDIATE RELEASE) PO ONE (18:22)
--- NOTE | 2017-08-11 19:12 | Progress Note ---
Medicine Progress Note Date & Time of Visit: Aug 11, 2017 at 11:35 . Subjective CC: Follow-up visit for pneumonia and other problems. HPI: Feels better. No fever or chills. Cough and dyspnea improved. Still having hemoptysis. Also experiencing epistaxis. Ambulating. ROS: General- as noted above in HPI Resp- as noted above in HPI Cardiac- no chest pain, no edema GI- no nausea, no vomiting, no diarrhea, no constipation - no dysuria Musculoskeletal- chronic pain fairly well controlled . Objective Last 8 Hrs Date Time Temp Pulse Resp B/P (MAP) Pulse Ox O2 Delivery O2 Flow Rate FiO2 08/11/17 16:00 95 Room Air 08/11/17 14:35 88 18 96 Room Air 08/11/17 14:27 36.8 102 20 145/75 (98) 92 Room Air 08/11/17 11:39 84 18 98 Room Air Physical Exam: General- no acute distress Lungs- diffuse mild wheezing; no respiratory distress Cardiovascular- RRR; no gallop appreciated; no JVD; no pretibial edema Abdomen- + bowel sounds, soft, nontender Extremities- no cyanosis; no calf tenderness Neuro-alert, oriented Skin- warm & dry . Laboratory Results: Last 24 Hours Test 08/11/17 06:29 Sodium Level 132 mmol/L Potassium Level 3.9 mmol/L Chloride Level 101 mmol/L Carbon Dioxide Level 27 mmol/L Anion Gap 4.0 mmol/L Blood Urea Nitrogen 17 mg/dl Creatinine 1.05 mg/dl Est Creatinine Clear Calc Drug Dose 37.1 ml/min Estimated GFR () 59.3 Estimated GFR (Non- 51.2 BUN/Creatinine Ratio 15.9 Random Glucose 89 mg/dl Calcium Level 9.6 mg/dl Assessment & Plan PNEUMONIA Chest x-ray and CT demonstrated emphysema and infiltrates in the lingula and left lower lobe. CT also demonstrated debris in the left lower lobe airways. Radiographic findings suggest aspiration pneumonia. Blood cultures negative so far. Sputum culture grew normal rani. Currently receiving levofloxacin with improvement. Bronchoscopy anticipated to rule out endobronchial lesion. SUSPECTED ASPIRATION CT findings concerning for pulmonary aspiration. Bedside swallowing evaluation done by LATHE TENDER- no apparent signs of aspiration during their assessment. Continue LATHE TENDER recommendations with safe swallowing strategies, regular diet, thin liquids. Given CT findings, will request videofluoroscopy. HEMOPTYSIS Most likely secondary to pneumonia. History of adenocarcinoma of the lung. Sputum cytology 08/08 negative for malignancy. Bronchoscopy recommended to rule out endobronchial lesion. COPD / PULMONARY HYPERTENSION Severe COPD, on home O2 2 L/min at night. Exacerbation secondary to pneumonia. Continue prednisone 40 mg daily. Bronchodilators as needed. Titrate supplemental oxygen. Outpatient pulmonary rehab anticipated. CHRONIC BACK PAIN Episodes of severe lethargy. Usual dose of MS Contin 30 mg every 12 hours continued. Immediate release morphine PRN dose decreased to 15 mg every 6 hours PRN due to lethargy. VTE PROPHYLAXIS SQ enoxaparin initially ordered, but stopped due to hemoptysis. SCD's. Ambulate. DISPOSITION Anticipated discharge to home. Patient interested in pulmonary rehab. Internal Medicine follow-up with Dr. Ortega. . Current Inpatient Medications: Current Inpatient Medications Medications (Trade) Dose Ordered Sig/Lan Route Start Time Stop Time Status Last Admin Dose Admin Acetaminophen (Tylenol Tab) 650 mg Q4H PRN PO 08/06/17 20:00 09/05/17 19:59 Polyethylene (Miralax Powder Packet) 17 gm DAILY PRN PO 08/06/17 20:00 09/05/17 19:59 Ondansetron HCl (Zofran Inj) 4 mg Q6H PRN IV 08/06/17 20:00 09/05/17 19:59 Levofloxacin (Consult) 1 ea UD PRN N/A 08/06/17 21:14 09/05/17 21:13 Atorvastatin Calcium (Lipitor Tab) 10 mg QAM PO 08/07/17 08:00 09/06/17 07:59 08/11/17 08:27 10 MG Escitalopram Oxalate (Lexapro Tab) 10 mg QAM PO 08/07/17 08:00 09/06/17 07:59 08/11/17 08:28 10 MG Fish Oil ([place]-3 (Purified Fish Oil) Cap) 1 gm DAILY PO 08/07/17 08:00 09/06/17 07:59 08/11/17 08:27 1 GM Fluticasone Propionate (Flonase Nasal [place]) 2 sprays DAILY NA 08/07/17 08:00 09/06/17 07:59 08/11/17 08:27 2 SPRAYS Gabapentin (Neurontin Tab) 600 mg BID PO 08/06/17 21:30 09/05/17 21:29 08/11/17 08:27 600 MG Multivitamins (Multivitamin Tab) 1 tab DAILY PO 08/07/17 08:00 09/06/17 07:59 08/11/17 08:27 1 TAB Miscellaneous Information (Order Awaiting Action) 1 ea QS N/A 08/07/17 00:00 09/06/17 00:00 Morphine Sulfate (Oramorph Sr Tab) 30 mg Q12H PO 08/06/17 21:30 08/20/17 21:29 08/11/17 09:37 30 MG Pantoprazole Sodium (Protonix Tab) 40 mg QAM PO 08/07/17 08:00 09/06/17 07:59 08/11/17 08:27 40 MG Prednisone (PredniSONE TAB) 40 mg DAILY PO 08/08/17 08:00 09/07/17 07:59 08/11/17 08:27 40 MG Salmeterol Xinafoate/ Fluticasone (Advair Diskus 250/50 Inh) 1 puff BID INH 08/08/17 08:00 09/07/17 07:59 08/11/17 08:26 1 PUFF Levalbuterol (Xopenex 0.63 Mg/ 3 Ml Neb) 0.63 mg QIDR INH 08/08/17 16:00 09/07/17 15:59 08/11/17 14:35 0.63 MG Levofloxacin (Levaquin Tab) 750 mg Q2D@2000 PO 08/10/17 20:00 08/12/17 23:59 08/10/17 19:47 750 MG Morphine Sulfate (MoRPHine SULFATE IR TAB) 15 mg Q6H PRN PO 08/10/17 04:45 08/24/17 04:44 08/11/17 17:11 15 MG Oxymetazoline HCl (Afrin 0.05% Nasal [place]) 2 sprays BID NA 08/11/17 20:00 08/16/17 08:01
[2017-08-11] MEDS: OXYMETAZOLINE HCL 0.05% NA SPR 15 ML BTL SCH (20:00)
[2017-08-12] VITALS (13 sets, daily range): BP systolic 98–134; BP diastolic 58–74; PULSE 64–80; TEMP 36.6–36.9; O2SAT 91–97
[2017-08-12] MEDS: MoRPHine SULFATE IR 15 MG TAB (IMMEDIATE RELEASE) PO PRN ×2 (00:40→19:55)
[2017-08-12 07:15] LABS: CREATININE 1.29 mg/dl (0.60-1.20)
[2017-08-12] MEDS: LEVALBUTEROL 0.63MG/3 ML NEB INH SCH ×5 (07:36→19:15)
[2017-08-12] MEDS: FLUTICASONE PROPIONATE NA SPR 16 GM BTL SCH (08:00)
[2017-08-12] MEDS: OXYMETAZOLINE HCL 0.05% NA SPR 15 ML BTL SCH ×2 (08:00→19:51)
[2017-08-12] MEDS: MoRPHine SULFATE CR 15 MG TAB (MS CONTIN) PO SCH ×2 (08:42→21:31)
[2017-08-12] MEDS: FLUTICASONE/SALMETEROL 250/50 (ADVAIR) 14 PUFF/1 INHALER INH SCH ×2 (08:42→19:51)
[2017-08-12] MEDS: PANTOprazole SOD 40 MG TAB PO SCH (08:43)
[2017-08-12] MEDS: ATORVASTATIN 10 MG TAB PO SCH (08:45)
[2017-08-12] MEDS: GABAPENTIN 600 MG TAB PO SCH ×2 (08:45→19:50)
[2017-08-12] MEDS: OMEGA-3 (PURIFIED FISH OIL) 1 GM CAP PO SCH (08:45)
[2017-08-12] MEDS: MULTIVITAMIN TAB PO SCH (08:45)
[2017-08-12] MEDS: ESCITALOPRAM OXALATE 10 MG TAB PO SCH (08:45)
[2017-08-12] MEDS ORDERED: RANITIDINE HCL 50 MG/100 ML D5W IV STA (09:47)
--- NOTE | 2017-08-12 09:49 | History & Physical Bridge Note ---
H&P Re-Evaluation Bridge Note: I have examined the patient, reviewed the History & Physical and in the interval since the performance of the History & Physical I have noted the following changes of clinical significance: No changes noted Possible allergy to lidocaine but per history most likely Hurricaine spray. Will pre-medicate with Benadryl and ranitidine prior to bronchoscopy:
--- NOTE | 2017-08-12 09:50 | Pre Sedation Assessment ---
Pre Sedation Assessment General Date of Sedation: Aug 12, 2017. Vital Signs Past 12 Hours Date Time Temp Pulse Resp B/P (MAP) Pulse Ox O2 Delivery O2 Flow Rate FiO2 08/12/17 08:00 96 Room Air 08/12/17 07:36 64 18 96 Room Air 08/12/17 07:14 36.9 66 18 127/71 (89) 95 2.0 08/12/17 00:15 Room Air 2.0 Nasal Cannula 08/11/17 23:31 36.9 78 18 168/80 (109) 94 2.0 Review Cardiovascular: regular rate, rhythm, no edema, no gallop, no JVD, no murmur, normal peripheral pulses Lungs: + rhonchi Pre-Sedation Airway Assessment Smoking Status: Current Some Day Smoker Hx of Sleep Apnea: No Hx of difficult intubation: No Short Thick Neck: No Thyro-mental Distance: > 3 Finger Breadths Oral Cavity: WNL Mallampati Classification: Class II ASA Classification: Class III NPO Status Date of Last Intake of Fluids: Aug 11, 2017 Time of Last Intake of Fluids: 2329 Date of Last Intake of Solids: Aug 11, 2017 Time of Last Intake of Solids: 2354 Procedure Planning Contraindications for Sedation: None Current Medications Reviewed: Yes Notes The planned sedation has been discussed with the patient. Informed Consent was obtained. I have identified the patient, determined the appropriateness of sedation and have assessed the patient immediately prior to the procedure. All medicine(s) and interventions are by my order.
[2017-08-12] MEDS ORDERED: RANITIDINE IV 50 MG in DEXTROSE 5% 100ML 100 ML IV ONE (10:00)
[2017-08-12] MEDS ORDERED: DiphenhydrAMINE INJ 25 MG in SYRINGE 0 ML IV ONE (10:00)
[2017-08-12] MEDS ORDERED: DiphenhydrAMINE HCL 50 MG/ML VIAL IV ONE (10:00)
[2017-08-12] MEDS ORDERED: FENTANYL CITRATE INJ 50 MCG/1 ML 2 ML VIAL IV ONE (11:33)
[2017-08-12] MEDS ORDERED: MIDAZOLAM HCL 5 MG/ML 1 ML VIAL IV ONE (11:33)
[2017-08-12] MEDS ORDERED: LIDOCAINE HCL 2% LOCAL 50ML VIAL INSTIL ONE (11:33)
--- NOTE | 2017-08-12 11:33 | Bronchoscopy Procedure Note ---
Bronchoscopy Procedure Note Procedure: Bronchoscopy, conscious sedation, bronchial lavage Consent: Obtained through the patient placed into the chart Pre-procedural diagnosis: Hemoptysis Post-procedural diagnosis: Epistaxis, bronchial ring torsion of the right bronchus intermedius Start time: 1104 End time: 1124 Total time: 20 minutes Analgesia: 2% liquid lidocaine: Via bronchoscopy Sedation: Versed IV: 3mg Fentanyl IV: 50g Benadryl IV: 25 mg RANITIDINE IV: 50 MG Procedure: The Olympus video bronchoscope was used for this procedure and passed down through the right naris Right naris/posterior naris/posterior oropharynx: Anatomically within normal limits, erythema with a small area of bleeding form the inferior nasal turbinate Glottis: Anatomically within normal limits Vocal cords: Proper abduction and abduction, anatomically within normal limits Subglottis/trachea/Jenn: Anatomically within normal limits Right bronchial tree: Right mainstem bronchus: Anatomically within normal limits Right upper lobe: Anatomically within normal limits Bronchus intermedius: Notable clockwise rotation and bronchial ring distortion at the level of the right middle lobe Right middle lobe: Anatomically within normal limits Right lower lobe: Severe clockwise rotation with the medial aspect hidden underneath the bronchial ring abnormality Left bronchial tree: Left mainstem bronchus: Anatomically within normal limits Left upper lobe: Anatomically within normal limits Lingula: Anatomically within normal limits Left lower lobe: Anatomically within normal limits Findings: No significant findings noted Bronchial alveolar lavage: Right lower lobe EBL: None Complications: None Follow-up: [facility]SU
--- NOTE | 2017-08-12 11:34 | Post Sedation Assessment ---
Post Sedation Assessment General Date of Sedation Aug 12, 2017. Vital Signs: Vital Signs Past 12 Hours Date Time Temp Pulse Resp B/P (MAP) Pulse Ox O2 Delivery O2 Flow Rate FiO2 08/12/17 10:53 70 21 134/74 96 Oxymask 6 08/12/17 10:42 36.7 71 20 134/74 (94) 95 Nasal Cannula 2.0 08/12/17 08:00 96 Room Air 08/12/17 07:36 64 18 96 Room Air 08/12/17 07:14 36.9 66 18 127/71 (89) 95 2.0 08/12/17 00:15 Room Air 2.0 Nasal Cannula Post Procedure Recovery Score Activity: (2) Moves 4 extremities * Respiration: (2) Deep breath/cough Circulation: (2) +/-20% PreAnes Value Consciousness: (1) Arouseable (by name) Oxygen Saturation: (1) O2 needed for >90% Post Anesthesia Score: 8 Discharge Sedation Level of Care: Fast Track Phase II Post Sedation Plan On clinical assessment, the patient appears to have tolerated the sedation without complications. Patient is recovering as anticipated. Patient will continue to be monitored by nursing and may be discharged when sedation discharge criteria are met per below protocol. Upon Completions of procedure and additional 15 minutes continue every 5 minute vital signs and the P.A.R. score; then discharge to a Phase I or Fast Track to Phase II per the following guidelines: * Discharge Patient to appropriate Phase II area if PAR is 8 or greater or return to pre- procedure baseline. The post - procedure orders will be as directed. * If PAR score is less than 8 or not return to pre-procedure baseline then patient will follow Phase I monitoring till PAR is reached for Phase II. The Phase I may be done in procedure room or may call to secure a Phase I area. * If naloxone or flumazenil are used for reversal, hold in Phase I for an additional 60 -120 minutes before discharge to Phase II. Please call the Sedation Physician to re-evaluate and complete post-note for discharge to Phase II area. Do NOT discharge from procedure sedation or Phase 1 until post- sedation evaluation note is complete by procedure /sedation MD Sedation Discharge Instructions to be given to the patient at discharge to home.
[2017-08-12] MEDS: LEVOFLOXACIN 750 MG TAB PO SCH (19:50)
--- NOTE | 2017-08-12 20:00 | Progress Note ---
Medicine Progress Note Date & Time of Visit: Aug 12, 2017 at 15:30 . Subjective CC: Follow-up visit for pneumonia and other problems. HPI: Underwent bronchoscopy today. Still sedated after the procedure. Cough, SOB improved. No fever. ROS: General- as noted above in HPI Resp- as noted above in HPI Cardiac- no chest pain, no edema GI- no nausea, no vomiting, no diarrhea - no dysuria Musculoskeletal- chronic back pain . Objective Last 8 Hrs Date Time Temp Pulse Resp B/P (MAP) Pulse Ox O2 Delivery O2 Flow Rate FiO2 08/12/17 19:18 72 16 97 Mask 4.0 08/12/17 16:10 Nasal Cannula 4.0 08/12/17 15:03 36.7 77 20 115/67 (83) 95 Nasal Cannula 5.0 08/12/17 14:15 36.9 70 20 106/58 (74) 95 Nasal Cannula 4.0 08/12/17 13:15 36.9 70 20 102/69 (80) 96 Nasal Cannula 4.0 08/12/17 12:51 96 Nasal Cannula 4.0 08/12/17 12:45 36.8 78 20 98/67 (77) 93 Nasal Cannula 4.0 08/12/17 12:15 36.6 77 18 107/66 (80) 94 5.0 08/12/17 12:00 70 16 91 Mask 4.0 08/12/17 12:00 Oxymask Physical Exam: General- no acute distress Lungs- diffuse mild wheezing; no respiratory distress Cardiovascular- RRR; no gallop appreciated; no JVD; no pretibial edema Abdomen- + bowel sounds, soft, nontender Extremities- no cyanosis; no calf tenderness Neuro- somewhat sedated Skin- warm & dry . Laboratory Results: Last 24 Hours Test 08/12/17 06:16 Creatinine 1.29 mg/dl Est Creatinine Clear Calc Drug Dose 30.2 ml/min Estimated GFR () 46.3 Estimated GFR (Non- 39.9 Date/Time Source Procedure Growth Status 08/12/17 11:17 Bronchial Washings Right Lower Lobe Fungal Smear Pending Received 08/12/17 11:17 Bronchial Washings Right Lower Lobe Fungal Culture Pending Received 08/12/17 11:17 Bronchial Washings Right Lower Lobe Acid Fast Stain Pending Received 4/16/18 11:17 Bronchial Washings Right Lower Lobe Mycobacterial Culture Pending Received 08/12/17 11:17 Bronchial Washings Right Lower Lobe Gram Stain Pending Received 08/12/17 11:17 Bronchial Washings Right Lower Lobe Bronchoalveolar Lavage Culture Pending Received Assessment & Plan PNEUMONIA Chest x-ray and CT demonstrated emphysema and infiltrates in the lingula and left lower lobe. CT also demonstrated debris in the left lower lobe airways. Radiographic findings suggest aspiration pneumonia. Blood cultures negative so far. Sputum culture grew normal rani. Currently receiving levofloxacin with improvement. Bronchoscopy did not show any endobronchial lesions. SUSPECTED ASPIRATION CT findings concerning for pulmonary aspiration. Bedside swallowing evaluation done by CRITICAL POWER INSTALL TECHNICIAN- no apparent signs of aspiration during their assessment. Continue CRITICAL POWER INSTALL TECHNICIAN recommendations with safe swallowing strategies, regular diet, thin liquids. Given CT findings, will request videofluoroscopy. HEMOPTYSIS Most likely secondary to pneumonia. History of adenocarcinoma of the lung. Sputum cytology 08/08 negative for malignancy. Bronchoscopy did not show any endobronchial lesions. COPD / PULMONARY HYPERTENSION Severe COPD, on home O2 2 L/min at night. Exacerbation secondary to pneumonia. Continue prednisone 40 mg daily. Bronchodilators as needed. Titrate supplemental oxygen. Outpatient pulmonary rehab anticipated. CHRONIC BACK PAIN Episodes of severe lethargy. Usual dose of MS Contin 30 mg every 12 hours continued. Immediate release morphine PRN dose decreased to 15 mg every 6 hours PRN due to lethargy. VTE PROPHYLAXIS SQ enoxaparin initially ordered, but stopped due to hemoptysis. SCD's. Ambulate. DISPOSITION Anticipated discharge to home. Patient interested in pulmonary rehab. Pulmonary Medicine follow-up with Kartik Rosas PA-C. Internal Medicine follow-up with Dr. Ortega. . Current Inpatient Medications: Current Inpatient Medications Medications (Trade) Dose Ordered Sig/Lan Route Start Time Stop Time Status Last Admin Dose Admin Acetaminophen (Tylenol Tab) 650 mg Q4H PRN PO 08/06/17 20:00 09/05/17 19:59 Polyethylene (Miralax Powder Packet) 17 gm DAILY PRN PO 08/06/17 20:00 09/05/17 19:59 Ondansetron HCl (Zofran Inj) 4 mg Q6H PRN IV 08/06/17 20:00 09/05/17 19:59 Levofloxacin (Consult) 1 ea UD PRN N/A 08/06/17 21:14 09/05/17 21:13 Atorvastatin Calcium (Lipitor Tab) 10 mg QAM PO 08/07/17 08:00 09/06/17 07:59 08/12/17 08:45 10 MG Escitalopram Oxalate (Lexapro Tab) 10 mg QAM PO 08/07/17 08:00 09/06/17 07:59 08/12/17 08:45 10 MG Fish Oil ([place]-3 (Purified Fish Oil) Cap) 1 gm DAILY PO 08/07/17 08:00 09/06/17 07:59 08/12/17 08:45 1 GM Fluticasone Propionate (Flonase Nasal [place]) 2 sprays DAILY NA 08/07/17 08:00 09/06/17 07:59 08/11/17 08:27 2 SPRAYS Gabapentin (Neurontin Tab) 600 mg BID PO 08/06/17 21:30 09/05/17 21:29 08/12/17 19:50 600 MG Multivitamins (Multivitamin Tab) 1 tab DAILY PO 08/07/17 08:00 09/06/17 07:59 08/12/17 08:45 1 TAB Miscellaneous Information (Order Awaiting Action) 1 ea QS N/A 08/07/17 00:00 09/06/17 00:00 Morphine Sulfate (Oramorph Sr Tab) 30 mg Q12H PO 08/06/17 21:30 08/20/17 21:29 08/12/17 08:42 30 MG Pantoprazole Sodium (Protonix Tab) 40 mg QAM PO 08/07/17 08:00 09/06/17 07:59 08/12/17 08:43 40 MG Prednisone (PredniSONE TAB) 40 mg DAILY PO 08/08/17 08:00 09/07/17 07:59 08/12/17 08:43 40 MG Salmeterol Xinafoate/ Fluticasone (Advair Diskus 250/50 Inh) 1 puff BID INH 08/08/17 08:00 09/07/17 07:59 08/12/17 19:51 1 PUFF Levalbuterol (Xopenex 0.63 Mg/ 3 Ml Neb) 0.63 mg QIDR INH 08/08/17 16:00 09/07/17 15:59 08/12/17 19:15 0.63 MG Levofloxacin (Levaquin Tab) 750 mg Q2D@2000 PO 08/10/17 20:00 08/12/17 23:59 08/12/17 19:50 750 MG Morphine Sulfate (MoRPHine SULFATE IR TAB) 15 mg Q6H PRN PO 08/10/17 04:45 08/24/17 04:44 08/12/17 19:55 15 MG Oxymetazoline HCl (Afrin 0.05% Nasal Simpson) 2 sprays BID NA 08/11/17 20:00 08/16/17 08:01 08/12/17 19:51 2 SPRAYS
[2017-08-13 07:02] VITALS: PULSE 75; O2SAT 95
[2017-08-13] MEDS: LEVALBUTEROL 0.63MG/3 ML NEB INH SCH ×2 (07:02→11:44)
[2017-08-13 07:10] VITALS: BP 144/77; PULSE 68; TEMP 36.4; O2SAT 98
[2017-08-13 07:16] LABS: CALCIUM 9.6 mg/dl (8.5-10.1); CREATININE 1.27 mg/dl (0.60-1.20)
[2017-08-13] MEDS: MULTIVITAMIN TAB PO SCH (08:30)
[2017-08-13] MEDS: PANTOprazole SOD 40 MG TAB PO SCH (08:30)
[2017-08-13] MEDS: OMEGA-3 (PURIFIED FISH OIL) 1 GM CAP PO SCH (08:30)
[2017-08-13] MEDS: ESCITALOPRAM OXALATE 10 MG TAB PO SCH (08:30)
[2017-08-13] MEDS: MoRPHine SULFATE CR 15 MG TAB (MS CONTIN) PO SCH (08:30)
[2017-08-13] MEDS: ATORVASTATIN 10 MG TAB PO SCH (08:30)
[2017-08-13] MEDS: GABAPENTIN 600 MG TAB PO SCH (08:30)
[2017-08-13] MEDS: FLUTICASONE/SALMETEROL 250/50 (ADVAIR) 14 PUFF/1 INHALER INH SCH (08:31)
[2017-08-13] MEDS: OXYMETAZOLINE HCL 0.05% NA SPR 15 ML BTL SCH (08:31)
[2017-08-13] MEDS: FLUTICASONE PROPIONATE NA SPR 16 GM BTL SCH (08:31)
[2017-08-13 11:22] VITALS: PULSE 71; O2SAT 93
--- NOTE | 2017-08-13 12:04 | DIAGNOSTIC IMAGING REPORT ---
VIDEO SWALLOW HISTORY: Dysphagia assess for aspiration, please schedule per order TECHNIQUE: Video fluoroscopic evaluation of swallowing was performed in the AP and lateral projections by the speech pathology staff. The patient is fed nectar-thick and thin liquid barium, a barium coated wafer, and barium pudding. FLUOROSCOPY TIME: 3.1 minutes. COMPARISON STUDY: None. FINDINGS: There is normal hyoid excursion and epiglottic deflection. There is no significant aspiration. There is a trace amount of penetration. IMPRESSION: 1. 1. Trace amount of penetration. No evidence for aspiration. 2. Please see the speech pathologist report for detailed findings and recommendations. The above report was generated using voice recognition software. It may contain grammatical, syntax or spelling errors. Electronically signed by: Jian Lo M.D. 08/13/2017 12:02 PM Dictated Date/Time: 08/13/2017 11:59 AM
--- NOTE | 2017-08-13 12:35 | Progress Note ---
Medicine Progress Note Date & Time of Visit: Aug 13, 2017 at 12:35 . Subjective Doing well. No fever. Minimal cough. Dyspnea at baseline. Ambulating, but needs supplemental O2 at 2 L/min with ambulation. . Objective Last 8 Hrs Date Time Temp Pulse Resp B/P (MAP) Pulse Ox O2 Delivery O2 Flow Rate FiO2 08/13/17 11:22 71 16 93 Nasal Cannula 2.0 08/13/17 08:00 Nasal Cannula 4.0 08/13/17 07:10 36.4 68 16 144/77 (99) 98 4.0 08/13/17 07:02 75 16 95 Nasal Cannula 4.0 Physical Exam: General- no acute distress Lungs- diffuse mild wheezing; no respiratory distress Cardiovascular- RRR; no gallop appreciated; no JVD; no pretibial edema Abdomen- + bowel sounds, soft, nontender Extremities- no cyanosis; no calf tenderness Neuro-alert, oriented Skin- warm & dry . Laboratory Results: Last 24 Hours Test 08/13/17 06:19 Sodium Level 133 mmol/L Potassium Level 4.0 mmol/L Chloride Level 98 mmol/L Carbon Dioxide Level 28 mmol/L Anion Gap 7.0 mmol/L Blood Urea Nitrogen 20 mg/dl Creatinine 1.27 mg/dl Est Creatinine Clear Calc Drug Dose 30.7 ml/min Estimated GFR () 47.1 Estimated GFR (Non- 40.7 BUN/Creatinine Ratio 15.5 Random Glucose 85 mg/dl Calcium Level 9.6 mg/dl Assessment & Plan PNEUMONIA Chest x-ray and CT demonstrated emphysema and infiltrates in the lingula and left lower lobe. CT also demonstrated debris in the left lower lobe airways. Radiographic findings suggest aspiration pneumonia. Blood cultures negative. Sputum culture grew normal rani. Received levofloxacin with improvement. Bronchoscopy did not show any endobronchial lesions. SUSPECTED ASPIRATION CT findings concerning for pulmonary aspiration. Bedside swallowing evaluation done by CONDEMNATION ENGINEER- no apparent signs of aspiration during their assessment. Continue CONDEMNATION ENGINEER recommendations with safe swallowing strategies, regular diet, thin liquids. Given CT findings, will request videofluoroscopy. HEMOPTYSIS Most likely secondary to pneumonia. History of adenocarcinoma of the lung. Sputum cytology 08/08 negative for malignancy. Bronchoscopy did not show any endobronchial lesions. COPD / PULMONARY HYPERTENSION Severe COPD, on home O2 2 L/min at night. Exacerbation secondary to pneumonia. Received steroids and bronchodilators as needed. Taper prednisone. Continue supplemental oxygen. Outpatient pulmonary rehab anticipated. CHRONIC BACK PAIN Discharge and usual analgesics. VTE PROPHYLAXIS SQ enoxaparin initially ordered, but stopped due to hemoptysis. SCD's. Ambulate. DISPOSITION Discharge to home. Patient interested in pulmonary rehab. Pulmonary Medicine follow-up with ANGELINE Schaefer. Internal Medicine follow-up with Dr. Ortega. . Current Inpatient Medications: Current Inpatient Medications Medications (Trade) Dose Ordered Sig/Lan Route Start Time Stop Time Status Last Admin Dose Admin Acetaminophen (Tylenol Tab) 650 mg Q4H PRN PO 08/06/17 20:00 09/05/17 19:59 Polyethylene (Miralax Powder Packet) 17 gm DAILY PRN PO 08/06/17 20:00 09/05/17 19:59 08/13/17 10:52 17 GM Ondansetron HCl (Zofran Inj) 4 mg Q6H PRN IV 08/06/17 20:00 09/05/17 19:59 Atorvastatin Calcium (Lipitor Tab) 10 mg QAM PO 08/07/17 08:00 09/06/17 07:59 08/13/17 08:30 10 MG Escitalopram Oxalate (Lexapro Tab) 10 mg QAM PO 08/07/17 08:00 09/06/17 07:59 08/13/17 08:30 10 MG Fish Oil ([place]-3 (Purified Fish Oil) Cap) 1 gm DAILY PO 08/07/17 08:00 09/06/17 07:59 08/13/17 08:30 1 GM Fluticasone Propionate (Flonase Nasal [place]) 2 sprays DAILY NA 08/07/17 08:00 09/06/17 07:59 08/13/17 08:31 2 SPRAYS Gabapentin (Neurontin Tab) 600 mg BID PO 08/06/17 21:30 09/05/17 21:29 08/13/17 08:30 600 MG Multivitamins (Multivitamin Tab) 1 tab DAILY PO 08/07/17 08:00 09/06/17 07:59 08/13/17 08:30 1 TAB Miscellaneous Information (Order Awaiting Action) 1 ea QS N/A 08/07/17 00:00 09/06/17 00:00 Morphine Sulfate (Oramorph Sr Tab) 30 mg Q12H PO 08/06/17 21:30 08/20/17 21:29 08/13/17 08:30 30 MG Pantoprazole Sodium (Protonix Tab) 40 mg QAM PO 08/07/17 08:00 09/06/17 07:59 08/13/17 08:30 40 MG Prednisone (PredniSONE TAB) 40 mg DAILY PO 08/08/17 08:00 09/07/17 07:59 08/13/17 08:31 40 MG Salmeterol Xinafoate/ Fluticasone (Advair Diskus 250/50 Inh) 1 puff BID INH 08/08/17 08:00 09/07/17 07:59 08/13/17 08:31 1 PUFF Levalbuterol (Xopenex 0.63 Mg/ 3 Ml Neb) 0.63 mg QIDR INH 08/08/17 16:00 09/07/17 15:59 08/13/17 11:44 0.63 MG Morphine Sulfate (MoRPHine SULFATE IR TAB) 15 mg Q6H PRN PO 08/10/17 04:45 08/24/17 04:44 08/12/17 19:55 15 MG Oxymetazoline HCl (Afrin 0.05% Nasal [place]) 2 sprays BID NA 08/11/17 20:00 08/16/17 08:01 08/13/17 08:31 2 SPRAYS
[2017-08-13] MEDS ORDERED: LVQ750 PO (12:40)
[2017-08-13] MEDS ORDERED: PRED10TA PO (12:40)
--- NOTE | 2017-08-13 13:04 | Discharge Instructions ---
Discharge Instructions Date of Service Aug 13, 2017. Admission Reason for Admission: pneumonia . Discharge Discharge Diagnosis / Problem: pneumonia Discharge Goals Goal(s): Improve disease control Activity Recommendations Activity Limitations: as noted below Exercise/Sports Limitations: gradually increase as tolerated . Instructions / Follow-Up Instructions / Follow-Up APPOINTMENTS: INTERNAL MEDICINE 08/20/2017 1:00 PM Ron Ortega MD PULMONARY MEDICINE ANGELINE Schaefer 09/12/17 1:15 PM [facility] OTHER INSTRUCTIONS: Take 2 more doses of levofloxacin Levaquin for pneumonia - on Saturday and Saturday. Taper prednisone as directed: 4 pills (40 mg) on Saturday and 3 pills (30 mg) on 2 pills (20 mg) on 1 pills (10 mg) on Use Afrin 12-hour spray as needed for nosebleeds. May use it twice a day for 2 or 3 days at a time, but don't use it everyday. Seek medical attention if you have: * temperature above 101 * chest pain or trouble breathing * abdominal pain, nausea, vomiting * diarrhea, dark stools or bloody stools * any unanswered questions or concerns Call 911 if symptoms are severe. Call if you have any questions or problems. My cell # is [phone]. You can also reach a Jyoti hospitalist on duty at [facility] 24 hours a day by calling [phone]. Please take good care of yourself. Mando Cherry . Current Hospital Diet Patient's current hospital diet: Regular Diet Discharge Diet Recommended Diet: AHA Diet (Heart Healthy) Procedures Procedures Performed: bronchoscopy Pending Studies Studies pending at discharge: yes List of pending studies: results from bronchoscopy Medical Emergencies . Who to Call and When: Medical Emergencies: If at any time you feel your situation is an emergency, please call 911 immediately. . Non-Emergent Contact Non-Emergency issues call your: Primary Care Provider, Hospital Doctor, Burglar Alarm Installer . . "Provider Documentation" section prepared by Mando Cherry. . [place] Drug Monitoring Program Search Results: patient reviewed within database, no issues identified
[2017-08-13 13:05] VITALS: BP 144/77; PULSE 71; TEMP 36.4; O2SAT 93
[2017-08-13] MEDS: MoRPHine SULFATE IR 15 MG TAB (IMMEDIATE RELEASE) PO PRN (13:23)
--- NOTE | 2017-08-13 18:13 | Discharge Summary ---
Discharge Summary Date of Service Aug 13, 2017. Discharge Summary Admission Date: Aug 06, 2017 at 20:02 Discharge Date: Aug 13, 2017 Discharge Disposition: Home with services Principal Diagnosis: pneumonia exacerbation COPD . Secondary Diagnoses/Problems: Chronic and Resolved Medical Problems: (1) Adenocarcinoma of lung, history of Status: Chronic (2) Chronic pain syndrome Status: Chronic (3) Chronic prescription opiate use Status: Chronic (4) CKD (chronic kidney disease), stage III Status: Chronic (5) Esophageal reflux Status: Chronic (7) Lumbar spinal stenosis Status: Chronic (8) Osteoporosis Status: Chronic (9) Pulmonary hypertension Status: Chronic Surgical Problems: (1) H/O splenectomy Status: Chronic . Procedures: CT chest IV meds bronchoscopy 08/12/[address] Vyas video fluoroscopic swallowing study . Consultations: Pulmonary Medicine . Pending Studies/Follow-Up: final culture reports from bronchoscopy 08/12/17 . Medication Reconciliation New Medications: Levofloxacin (Levofloxacin) 750 Mg Tab 750 MG PO Q2D, #2 TAB Take 1 pill on 08/14, 1 pill on 08/16, then stop. Prednisone Tab (Prednisone) 10 Mg Tab 0 PO UD, #20 TAB Taper [id number], then stop. Continued Medications: Atorvastatin (Lipitor) 10 Mg Tab 10 MG PO QAM Escitalopram Oxalate (Lexapro) 10 Mg Tab 10 MG PO QAM Fish Oil ([place]-3) 1 Ea Cap 2 CAP PO DAILY Fluticasone Propionate (Nasal) (Flonase Allergy Relief) 50 Mcg/Act Spr 2 SPRAYS NA DAILY Gabapentin (Neurontin) 600 Mg Tab 600 MG PO BID, TAB Home O2 Therapy (Oxygen) Gas 2 LITERS NA HS Morphine Sulfate (Morphine Sulfate ER) 30 Mg Tabcr 1 TAB PO Q12 Morphine Sulfate Ir (Morphine Sulfate Ir) 30 Mg Tab 30 MG PO Q6H PRN for Pain Multivitamin (Multivitamin) Tab 1 TAB PO DAILY Omeprazole (Prilosec) 20 Mg Capcr 20 MG PO DAILY Umeclidinium-Vilanterol (Anoro Ellipta 62.5-25 Mcg/INH) 1 Aer Aer 1 PUFF INH DAILY [Glucosamine Sulfate] () 2 TABS PO DAILY Admission Information HPI (per Admitting provider): 77 yo F presents to the ER with reports of coughing up blood streaked sputum this morning, along with some chills and severe fatigue over the past 2 weeks that have caused her to feel significantly run down. She reports having friends over who were sick recently. She reports some chills without fevers and some constipation. She also reports allergic symptoms to include running nose, itchy watery eyes and itchy throat for the past couple of weeks, and for which she is taking Flonase. She denies any intolerance of food, nausea, vomiting, or diarrhea. She has had some minor headaches lately and hasn't been coughing much at all actually. she only reports coughing up the blood tinged sputum this morning x 3. She denies feeling short of breath, and she is on oxygen typically at night. . Physical Exam (per Admitting): General Appearance: no apparent distress, + thin Head: normocephalic, atraumatic Eyes: normal inspection, PERRL, EOMI, sclerae normal ENT: normal ENT inspection, hearing grossly normal, pharynx normal Neck: supple, no adenopathy, thyroid normal, trachea midline Respiratory/Chest: lungs clear, normal breath sounds, no respiratory distress, no accessory muscle use Cardiovascular: regular rate, rhythm, no edema, no gallop, no murmur, normal peripheral pulses Abdomen/GI: normal bowel sounds, non tender, soft, no organomegaly Back: normal inspection Extremities/Musculoskelatal: normal inspection, no pedal edema, normal range of motion Neurologic/Psych: no motor/sensory deficits, alert, normal mood/affect, oriented x 3 Skin: normal color, warm/dry Hospital Course PNEUMONIA Presented to ED with chills, malaise, cough. Chest x-ray and CT demonstrated emphysema and infiltrates in the lingula and left lower lobe. CT also demonstrated possible debris in the left lower lobe airways. Radiographic findings suggest aspiration pneumonia. Blood cultures negative. Sputum culture grew normal rani. Received levofloxacin with improvement. Bronchoscopy did not show any endobronchial lesions. SUSPECTED ASPIRATION CT findings concerning for pulmonary aspiration. Bedside swallowing evaluation done by SALT WASHER- no apparent signs of aspiration during their assessment. Continue SALT WASHER recommendations with safe swallowing strategies, regular diet, thin liquids. No apparent aspiration per video fluoroscopic swallowing study. HEMOPTYSIS Most likely secondary to pneumonia. History of adenocarcinoma of the lung. Sputum cytology 08/08 negative for malignancy. Bronchoscopy did not show any endobronchial lesions. COPD / PULMONARY HYPERTENSION Severe COPD, on home O2 2 L/min at night. Exacerbation secondary to pneumonia. Received steroids and bronchodilators as needed. Taper prednisone. Continue supplemental oxygen 2 LPM. Outpatient pulmonary rehab anticipated. CHRONIC BACK PAIN Discharge on usual analgesics. VTE PROPHYLAXIS SQ enoxaparin initially ordered, but stopped due to hemoptysis. SCD's. Ambulating.. DISPOSITION Discharged to home. Patient interested in pulmonary rehab. Pulmonary Medicine follow-up with ANGELINE Schaefer. Internal Medicine follow-up with Dr. Ortega. . Total time spent on discharge = 40 min. This includes examination of the patient, discharge planning, medication reconciliation, and communication with other providers. . Discharge Instructions Date of Service Aug 13, 2017. Admission Reason for Admission: pneumonia . Discharge Discharge Diagnosis / Problem: pneumonia Discharge Goals Goal(s): Improve disease control Activity Recommendations Activity Limitations: as noted below Exercise/Sports Limitations: gradually increase as tolerated . Instructions / Follow-Up Instructions / Follow-Up APPOINTMENTS: INTERNAL MEDICINE 08/20/2017 1:00 PM Ron Ortega MD PULMONARY MEDICINE ANGELINE Schaefer 09/12/17 1:15 PM Pulmonary Medicine [facility] OTHER INSTRUCTIONS: Take 2 more doses of levofloxacin Levaquin for pneumonia - on Saturday and Saturday. Taper prednisone as directed: 4 pills (40 mg) on Saturday and 3 pills (30 mg) on 2 pills (20 mg) on 1 pills (10 mg) on Use Afrin 12-hour spray as needed for nosebleeds. May use it twice a day for 2 or 3 days at a time, but don't use it everyday. Seek medical attention if you have: * temperature above 101 * chest pain or trouble breathing * abdominal pain, nausea, vomiting * diarrhea, dark stools or bloody stools * any unanswered questions or concerns Call 911 if symptoms are severe. Call if you have any questions or problems. My cell # is [phone]. You can also reach a [facility] hospitalist on duty at [facility] 24 hours a day by calling [phone]. Please take good care of yourself. Mando Cherry . Current Hospital Diet Patient's current hospital diet: Regular Diet Discharge Diet Recommended Diet: AHA Diet (Heart Healthy) Procedures Procedures Performed: bronchoscopy Pending Studies Studies pending at discharge: yes List of pending studies: results from bronchoscopy Medical Emergencies . Who to Call and When: Medical Emergencies: If at any time you feel your situation is an emergency, please call 911 immediately. . Non-Emergent Contact Non-Emergency issues call your: Primary Care Provider, Hospital Doctor, Tool Maker Apprentice . . "Provider Documentation" section prepared by Mando Cherry. . [place] Drug Monitoring Program Search Results: patient reviewed within database, no issues identified Additional Copies To Ron Ortega MD; Miryam Almanzar
--- NOTE | 2017-08-14 16:43 | EDITING REQUIRED CODING QUERY ---
CODING QUERY To promote full compliance with coding requirements relating to patient care, provider participation is requested in all cases of delicatessen store manager uncertainty. Please assist us with the question(s) below: Coding Question(s): Patient admitted with COPD exacerbation and Pneumonia. Please check below the type of pneumonia you were treating. Thank you! FIORELLA Gonzalez [facility] Physician's Response(s): Pneumonia, unspecified __x Aspiration Pneumonia (probable) Other Pneumonia/ please document: Cannot Clinically Correlate Principal Diagnosis: "_that condition established after study, to be chiefly responsible for occasioning the admission of the patient to the hospital for care." Co-Existing Principal Diagnosis: "_when two or more diagnoses equally meet the criteria for principal diagnosis as determined by the circumstances of admission, diagnostic work up, and/or therapy provided, and the Alphabetic Index, Tabular List, or another coding guideline does not provide sequencing direction, any one of the diagnoses may be sequenced first." "When the physician has documented what appears to be a current diagnosis in the body of the record, but has not included the diagnosis in the final diagnostic statement, the physician should be asked whether the diagnosis should be added." (Source Coding Clinic 2 QTR90. p3-4)
== END 2017-08-13 14:35 | disposition home health service (06) | DRG 166 ==
LOC: C.EDB 15:31 → C.MS4W 20:02 → ENRESERV 20:11
PROVIDERS: ADMIT Hospitalist; ATTEND Hospitalist
PROC: 0B9F8ZZ Drainage of Right Lower Lung Lobe, Via Natural or Artificial Opening Endoscopic (ICD-10-PCS; principal; 2017-08-12 11:00)
DX: J44.1 Chronic obstructive pulmonary disease with (acute) exacerbation (principal); J69.0 Pneumonitis due to inhalation of food and vomit; Z85.118 Personal history of other malignant neoplasm of bronchus and lung; N18.3 Chronic kidney disease, stage 3 (moderate); K21.9 Gastro-esophageal reflux disease without esophagitis; M81.0 Age-related osteoporosis without current pathological fracture; I27.20 Pulmonary hypertension, unspecified; J98.09 Other diseases of bronchus, not elsewhere classified; Z88.0 Allergy status to penicillin; Z88.8 Allergy status to other drugs, medicaments and biological substances; R09.02 Hypoxemia; M48.061 Spinal stenosis, lumbar region without neurogenic claudication; F17.200 Nicotine dependence, unspecified, uncomplicated; Z92.3 Personal history of irradiation; G62.9 Polyneuropathy, unspecified; M54.9 Dorsalgia, unspecified; Z99.81 Dependence on supplemental oxygen

== ENCOUNTER → 2017-11-27 | Outpatient (CLI) | payer BC ==
[~2017-11-27] MED LIST changes: +FLUT0.15; +GLUC10007 PO; -GLUCOSAMINE SULFATE PO
--- NOTE | 2017-11-27 14:48 | DIAGNOSTIC IMAGING REPORT ---
CHEST 2 VIEWS ROUTINE HISTORY: Follow-up left lung opacity. COMPARISON: Chest 08/06/2017. Chest CT 08/06/2017. FINDINGS: Emphysema. No pneumothorax. No pleural effusions. The heart is normal in size. Levoscoliosis of the thoracolumbar spine. Left lower lobe airspace opacity has essentially resolved. No new focal lung consolidations to suggest pneumonia. No evidence for pulmonary edema. IMPRESSION: 1. Interval resolution of the left lower lobe airspace opacity. 2. Emphysema. Electronically signed by: Paulo Null M.D. 11/27/2017 2:46 PM Dictated Date/Time: 11/27/2017 2:44 PM
== END | disposition home or self-care (01) ==
LOC: C.RAD1850 14:35
PROVIDERS: ATTEND Physician Assistant
DX: R91.1 Solitary pulmonary nodule (principal); J43.9 Emphysema, unspecified

== ENCOUNTER 2019-11-20 15:27 | Inpatient (IN) ==
[2019-11-20] MEDS ORDERED: fentaNYL citrate 100 MCG/2 ML VIAL IV PRN (15:49)
[2019-11-20] MEDS ORDERED: SODIUM CHLORIDE 0.9% 1000ML 1,000 ML IV ONE (15:49)
[2019-11-20 16:20] LABS: Basophils # (auto) 0.03 K/uL (0-0.2); Basophils % (auto) 0.2 %; Hematocrit (blood only) 44.1 % (37-47); Hemoglobin 15.3 g/dL (12.0-16.0); Immature Granulocytes # (auto) 0.04 K/uL (0.00-0.02); Immature Granulocytes % (auto) 0.2 %; Lymphocytes # (auto) 1.27 K/uL (1.2-3.4); Mean Corpuscular Hgb Conc 34.7 g/dL (32-36); Mean Corpuscular Volume 89.5 fL (80-100); Monocytes # (auto) 0.79 K/uL (0.11-0.59); Monocytes % (auto) 4.4 %; Neutrophils # (auto) 15.92 K/uL (1.4-6.5); Neutrophils % (auto) 88.2 %; Platelet Count 513 K/uL (130-400); RDW Coefficient of Variation 14.8 % (11.5-14.5); RDW Standard Deviation 48.9 fL (36.4-46.3); Red Blood Count 4.93 M/uL (4.2-5.4); White Blood Count 18.05 K/uL (4.8-10.8)
--- NOTE | 2019-11-20 16:22 | Emergency Department Note ---
Impression & Plan SBO (small bowel obstruction), Abdominal pain, acute, epigastric, Vomiting ED Provider Note NAME: VILMA PALMER AGE: 79 SEX: F : 1940 ARRIVES VIA: Ambulance INFORMANT: Patient, ED PROVIDER(S): Paulie Connell DO CHIEF COMPLAINT: Abdominal pain HPI: The patient is a 79-year-old female who presented to the emergency department for an evaluation of abdominal pain. The patient states that she started to notice abdominal pain yesterday which became worsened this morning. She states that her abdominal pain is slowly worsening throughout the day and is become much worse prior to arrival. She also had an episode of emesis and states that her abdominal pain felt much better after the emesis. She denies having any fevers. She has had no recent traveling. The patient states that she has worsening pain with any movement. She is noticed some dark stool. She also noticed dark emesis. The patient was not seen by her primary care physician. She has not had similar symptoms in the past although she is had multiple surgeries on her abdomen she has no reported history of bowel obstruction. The patient was given Zofran prior to arrival by the prehospital personnel. Patient states her pain is epigastric in nature. It does not radiate. ROS: See above HPI for pertinent positives & negatives. A total of 10 systems reviewed and were otherwise negative. PAST MEDICAL HISTORY: See Below PAST SURGICAL HISTORY: See Below FAMILY HISTORY: See Below SOCIAL HISTORY: See Below HOME MEDICATIONS: See Below ALLERGIES: See Below VITALS: See Below PHYSICAL EXAMINATION: GENERAL: The patient is frail and somewhat anxious appearing. She appears very uncomfortable. EYES: The conjunctivae are clear. The pupils are round and reactive. EARS, NOSE, MOUTH AND THROAT: The nose is without any evidence of any deformity. Mucous membranes are dry. NECK: The neck is nontender and supple. RESPIRATORY: Shallow and diminished breath sounds are noted bilaterally. There is no tachypnea or conversational dyspnea. CARDIOVASCULAR: Tachycardic rate with regular rhythm was noted. There was no definite murmur. GASTROINTESTINAL: The abdomen is moderately distended and diffusely tender. Rectal exam revealed brown stool which was heme-negative. MUSCULOSKELETAL/EXTREMITIES: There is no evidence of gross deformity full range of motion is noted in the hips and shoulders. SKIN: There is no obvious evidence of any rash. Skin is warm dry. NEUROLOGIC: Patient is awake alert and oriented x 3. MEDICAL DECISION MAKING: The patient is a 79-year-old female who presented to the emergency department for an evaluation of nausea vomiting. The patient has multiple abdominal surgeries in the past. Her history and physical exam appear to be consistent with bowel obstruction. CT confirmed a high-grade small bowel obstruction with a transition point in the right lower quadrant. The patient was treated with IV fluids and IV antibiotics. She was also treated with IV antiemetics. She was placed on supplemental oxygen. Multiple attempts were made to place an NG tube. I discussed the patient's condition with the on-call general surgeon. I also discussed her case with the on-call [facility] hospitalist. They have agreed to evaluate the patient for further management disposition. I discussed the patient's laboratory and radiographic studies with her and her daughter. Triage Nursing notes reviewed. Prior medical records reviewed Vital Signs: reviewed and remarkable for tachycardia and hypertension. Differential diagnosis: Appendicitis, testicular torsion, infections, diverticulitis, UTI, obstruction, mesenteric ischemia, aortic pathology, inflammatory bowel disease, renal colic, PUD, pancreatitis, biliary pathology, hernia, volvulus, constipation, as well as other pathologies. ER treatment provided: See below Diagnostics interpreted by me: ECG: EKG was obtained in the emergency department. My interpretation is sinus tachycardia at 109 bpm. There is no ectopy. LVH was noted by voltage criteria. Poor R wave progression was noted. This was compared to a tracing from May 28, 2019. Increased rate was noted otherwise no specific changes were noted. Cardiac Monitoring: An order was placed for continuous cardiac monitoring. The monitor shows a rate of 115 with sinus tachycardia rhythm. Laboratory studies: As stated above and show below. Imaging studies: See below Consultation(s): 181: I discussed this case with Dr. Miranda who is on-call for general surgery. 182: I discussed this case with Dr. Kauffman. He is agreed to evaluate the patient in the emergency department for further management and disposition. 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) "s/p resection, chemo and radiation 10 yrs ago" Bronchitis Chronic pain syndrome (Chronic 10/13/10) Chronic prescription opiate use (Chronic) CKD (chronic kidney disease), stage III (Chronic) COPD (chronic obstructive pulmonary disease) (Chronic) Depression (Chronic) Gastroesophageal reflux disease (Chronic 10/13/10) Hyperlipidemia Lumbar spinal stenosis (Chronic) Osteoporosis (Chronic) Pulmonary hypertension (Chronic) Stroke Surgical History H/O splenectomy (Chronic) History of adrenal surgery History of bladder surgery History of hysterectomy History of lung surgery History of tonsillectomy and adenoidectomy Hx of appendectomy (Chronic) S/P cholecystectomy (Chronic) Family History Mother Glaucoma Father Cancer Lung cancer Other Allergies No family history of adverse response to anesthesia No family history of bleeding disorder Social History Smoking Status: Current every day smoker Second Hand Exposure: Yes; Hx Alcohol Use: No Hx Substance Use: No Preferred Language: Mozambican current occupational status: retired Feels Safe at Home: Yes Allergies Allergies Allergy/AdvReac Type Severity Reaction Status Date / Time Penicillins Allergy Unknown hives Unverified 10/27/19 09:19 procaine Allergy Unknown SWELLING Verified 10/27/19 09:19 codeine AdvReac Unknown GI UPSET Unverified 10/27/19 09:19 Home Meds Home Medications Medication Instructions Recorded Confirmed atorvastatin [Lipitor] 10 mg PO QAM #0 05/12/16 11/20/19 escitalopram oxalate [Lexapro] 20 mg PO QAM #0 12/28/16 11/20/19 gabapentin [Neurontin] 600 mg PO BID #0 tab 01/25/17 11/20/19 glucosamine sulfate 2 tabs PO QAM #0 tab 10/01/17 11/20/19 coenzyme Q10 [Co Q-10] 0 mg PO QAM #0 12/24/17 11/20/19 aspirin [Aspirin Low Dose] 81 mg PO QAM 07/11/18 11/20/19 morphine 30 mg PO BID 07/11/18 11/20/19 naloxone [Narcan] 0 mg INTRANASAL DIRECTED 07/11/18 11/20/19 oxymetazoline 2 spray INTRANASAL Q12H PRN 07/11/18 11/20/19 morphine 15 mg PO Q12 PRN 05/28/19 11/20/19 [id number]-[id number]-[id number] 1 inh INHALATION DAILY 11/20/19 11/20/19 [Trelegy Ellipta] omeprazole 20 mg PO QAM 11/20/19 11/20/19 Results & Data (ED) Vital Signs Vital Signs - 24 hr 11/20/19 15:45 11/20/19 15:53 11/20/19 16:30 Temperature 37.5 C Temperature Source Oral Pulse Rate 113 H 108 H Pulse Rate from SpO2 Sensor 108 H Respiratory Rate 20 23 Blood Pressure 205/126 H Blood Pressure Mean 152 Pulse Oximetry 87 L 99 98 Oxygen Delivery Method Room Air Nasal Cannula Oxygen Flow Rate 3 3 Sepsis Recent Fever Within 48 Hours No Sepsis New/Unexplained Change in Mental Status N/A Sepsis Action Taken by Nursing No Action Required 11/20/19 17:30 11/20/19 17:55 11/20/19 18:30 Temperature Temperature Source Pulse Rate 111 H 112 H Pulse Rate from SpO2 Sensor Respiratory Rate 22 20 Blood Pressure 199/115 H 199/111 H Blood Pressure Mean 146 152 Pulse Oximetry 100 Oxygen Delivery Method Oxymask Oxygen Flow Rate 5 Sepsis Recent Fever Within 48 Hours Sepsis New/Unexplained Change in Mental Status Sepsis Action Taken by [facility] Medications Current Medication List: was personally reviewed by me Laboratory Data Attestation: I reviewed the patient's lab results. Result diagrams: 11/20/19 16:04 11/20/19 16:04 Lab Results 11/20/19 11/20/19 11/20/19 Range/Units 16:04 16:04 16:17 WBC 18.05 H (4.8-10.8) K/uL RBC 4.93 (4.2-5.4) M/uL Hgb 15.3 (12.0-16.0) g/dL POC Hgb 16.3 H (12.0-16.0) g/dl Hct 44.1 (37-47) % POC Hct 48 H (37-47) % MCV 89.5 (80-100) fL MCH 31.0 (25-34) pg MCHC 34.7 (32-36) g/dL RDW Std Deviation 48.9 H (36.4-46.3) fL RDW Coeff of Lora 14.8 H (11.5-14.5) % Plt Count 513 H (130-400) K/uL MPV 10.0 (7.4-10.4) fL Immature Gran % (Auto) 0.2 % Neut % (Auto) 88.2 % Lymph % (Auto) 7.0 % Gilmer % (Auto) 4.4 % Eos % (Auto) 0.0 % Baso % (Auto) 0.2 % Neut # (Auto) 15.92 H (1.4-6.5) K/uL Lymph # (Auto) 1.27 (1.2-3.4) K/uL Gilmer # (Auto) 0.79 H (0.11-0.59) K/uL Eos # (Auto) 0.00 (0-0.5) K/uL Baso # (Auto) 0.03 (0-0.2) K/uL Immature Gran # (Auto) 0.04 H (0.00-0.02) K/uL POC Sodium 136 (135-144) mmol/L Sodium 136 (136-145) mmol/L POC Potassium 4.1 (3.3-5.0) mmol/L Potassium 4.1 (3.5-5.1) mmol/L POC Chloride 91 L (101-112) mmol/L Chloride 94 L (98-107) mmol/L Carbon Dioxide 33 H (21-32) mmol/L POC Total CO2 32 H (24-31) mmol/L Anion Gap 9.0 (3-11) POC Anion Gap 17.0 (16-25) mmol/L POC BUN 19 H (7-18) mg/dl BUN 17 (7-18) mg/dl Creatinine 1.27 H (0.6-1.2) mg/dl POC Creatinine 1.1 (0.6-1.3) mg/dl Est Cr Clr Drug Dosing 25.4 ml/min Est GFR ( Amer) 46.5 Est GFR (Non-Af Amer) 40.1 BUN/Creatinine Ratio 13.5 (10-20) Glucose 161 H (70-99) mg/dl POC Glucose (other) 169 H (70-99) mg/dl Calcium 10.0 (8.5-10.1) mg/dl POC Ioniz Calcium Bren 1.19 (1.12-1.32) mmol/l Total Bilirubin 0.7 (0.2-1) mg/dl AST 10 L (15-37) U/L ALT 12 (12-78) U/L Alkaline Phosphatase 118 H (45-117) U/L Troponin I < 0.015 (0-0.045) ng/ml Total Protein 7.7 (6.4-8.2) gm/dl Albumin 3.4 (3.4-5.0) gm/dl Globulin 4.3 H (2.5-4.0) gm/dl Albumin/Globulin Ratio 0.8 L (0.9-2) Lipase 109 (73-393) U/L Administered Medications Fentanyl Citrate (Fentanyl Citrate) 50 mcg IV Q15M PRN PRN Reason: Pain Stop: 12/04/19 15:48 Last Admin: 11/20/19 16:23 Dose: 50 mcg Documented by: [id number] Ioversol (Optiray 320 100ml) 93 ml IV ONCE PRN PRN Reason: Interaction Checking Stop: 11/24/19 16:37 Last Admin: 11/20/19 16:38 Dose: 93 ml Documented by: [id number] Discontinued Medications Sodium Chloride (Nss 1000ml) 1,000 mls @ 999 mls/hr IV .Q1H1M ONE Stop: 11/20/19 16:49 Last Infusion: 11/20/19 18:03 Dose: 0 mls/hr Documented by: [id number] Admin: 11/20/19 16:23 Dose: 999 mls/hr Documented by: [id number] Ceftriaxone Sodium (Rocephin) 1,000 mg in 50 mls @ 100 mls/hr IV NOW STA Stop: 11/20/19 17:18 Last Infusion: 11/20/19 18:03 Dose: 0 mls/hr Documented by: [id number] Admin: 11/20/19 17:31 Dose: 100 mls/hr Documented by: [id number] Metronidazole (Flagyl) 500 mg in 100 mls @ 100 mls/hr IV NOW STA Stop: 11/20/19 17:49 Last Admin: 11/20/19 18:03 Dose: 100 mls/hr Documented by: [id number] Imaging Data Radiologist's Impression: XR chest 1V portable HISTORY: 79 years-old Female pain acute atypical chest pain COMPARISON: CT abdomen and pelvis of same day, chest radiograph 05/28/2019 TECHNIQUE: Portable AP view of the chest FINDINGS: Patient is slightly rotated. Cardiomegaly. Calcified plaque of the thoracic aortic arch. Emphysema with chronic interstitial coarsening. There is no pneumothorax, pleural effusion, overt pulmonary edema or airspace consolidation typical for pneumonia. Mild retrocardiac opacities suggest atelectasis. Degenerative changes of the shoulders and spine. Thoracolumbar sigmoidal scoliosis. Cholecystectomy. IMPRESSION: 1. Cardiomegaly without acute process. 2. Emphysema. ACT 112: Negative or not required by law. The above report was generated using voice recognition software. It may contain grammatical, syntax or spelling errors. Electronically signed by: Jeffery Og M.D. 11/20/2019 4:59 PM Dictated: 11/20/191655 Transcribed: 11/20/191655 CT SCAN OF THE ABDOMEN AND PELVIS WITH IV CONTRAST CLINICAL HISTORY: Vomiting. COMPARISON STUDY: Abdominal CT dated 12/24/2017. TECHNIQUE: Following the IV administration of 93 cc of Optiray 320, CT scan of the abdomen and pelvis is performed from the lung bases to the proximal femora. Images are reviewed in the axial, sagittal, and coronal planes. IV contrast was administered without complication. A dose lowering technique was utilized adhering to the principles of ALARA. CT DOSE: 230.51 mGy.cm FINDINGS: Lung bases: The heart is normal in size and without pericardial effusion. Advanced emphysematous change is noted at the lung bases. There is bibasilar scarring/atelectasis. No airspace consolidation or pleural effusion is identified. Liver: The contrast-enhanced liver is normal in size, contour, and attenuation. There is moderate intrahepatic biliary ductal dilatation. The hepatic veins and portal veins are patent. Gallbladder: Surgically absent noting clips in the gallbladder fossa. Spleen: The spleen is not identified and presumed surgically absent. Pancreas: Atrophic and grossly unremarkable. Adrenal glands: Unremarkable. Kidneys: The right kidney is not identified and presumed surgically absent. The contrast-enhanced left kidney demonstrates cortical atrophy and is without hydronephrosis. The left kidney enhances homogeneously. Abdominal vasculature: The abdominal aorta is normal in course and caliber noting advanced atherosclerotic calcification. Stomach and bowel: There is a small hiatal hernia. The stomach is distended and fluid-filled. The small bowel loops are distended and fluid-filled measuring up to 3.3 cm in diameter. There are numerous air-fluid levels. A transition point is suggested in the right lower quadrant on image #205, and the appearance is consistent with a small bowel obstruction. The distal small bowel and colon are decompressed. There is no pneumatosis intestinalis or portal venous gas. The appendix is not identified and reported surgically absent. Peritoneum: There is a small volume of abdominopelvic ascites. No intraperitoneal free air is seen. Lymphadenopathy: None. Pelvic viscera: Question asymmetric bladder wall thickening at the left base of the bladder seen on image #320. The uterus is surgically absent. No adnexal lesion is seen. Skeletal structures: The skeletal structures are osteopenic. There is advanced lumbosacral spondylosis and scoliosis. Advanced arthritic change is seen in the hips. There are bilateral hip joint effusions. No lytic or blastic lesions are seen. Soft tissues: The patient is cachectic. IMPRESSION: 1. Findings are consistent with a high-grade small bowel obstruction. A transition point is suggested in the right lower quadrant and this is likely on the basis of adhesions. 2. There is no intraperitoneal free air. No focally thick walled bowel loops are identified, and there is no pneumatosis intestinalis or portal venous gas. 3. Small volume of abdominopelvic ascites. 4. Advanced emphysema. 5. Question asymmetric left-sided bladder wall thickening at the base of the bladder. This is pathology indeterminant, and follow-up with urology is recommended. 6. The right kidney and spleen are presumed surgically absent. 7. Additional findings as above. ACT 112: Positive. There are findings on this exam that require communication between the performing entity and the patient following Patient Test Result Information Act ([place] Act 112) guidelines. Electronically signed by: Lenny Villa M.D. 11/20/2019 4:57 PM Dictated: 11/20/191646 Transcribed: 11/20/191646 Blood Pressure Blood Pressure Findings: Elevated blood pressure Blood Pressure Disposition: further management by hospitalist Discharge Plan Visit Data Chief Complaint: GI Assessment ED Provider: Paulie Connell Discharge Problem: SBO (small bowel obstruction), Abdominal pain, acute, epigastric, Vomiting Patient Disposition: Being Evaluated by Hospitalist Condition: Good Forms Stand Alone Forms: My [facility] Prescriptions Prescriptions: No Action atorvastatin [Lipitor] 10 mg Tablet 10 mg PO QAM Qty: 0 RF: 0 escitalopram oxalate [Lexapro] 20 mg Tablet 20 mg PO QAM Qty: 0 RF: 0 gabapentin [Neurontin] 600 mg Tablet 600 mg PO BID Qty: 0 RF: 0 glucosamine sulfate 1,000 mg Capsule 2 tabs PO QAM Qty: 0 RF: 0 coenzyme Q10 [Co Q-10] 10 mg Capsule 0 mg PO QAM Qty: 0 RF: 0 aspirin [Aspirin Low Dose] 81 mg Tablet,Delayed Release (Dr/Ec) 81 mg PO QAM RF: 0 morphine 30 mg tablet 30 mg PO BID RF: 0 oxymetazoline 0.05 % Antler,Non-Aerosol 2 spray INTRANASAL Q12H PRN (Reason: Sinus Symptoms) RF: 0 Narcan 4 mg/actuation Antler,Non-Aerosol 0 mg INTRANASAL DIRECTED RF: 0 morphine 15 mg tablet 15 mg PO Q12 PRN (Reason: Pain) RF: 0 Trelegy Ellipta 100-62.5-25 mcg blister with device 1 inh INHALATION DAILY RF: 0 omeprazole 20 mg capsule,delayed release(DR/EC) 20 mg PO QAM RF: 0 Referrals Referrals: Ron Ortega MD [Primary Care Provider] -
[2019-11-20 16:37] LABS: Alanine Aminotransferase 12 U/L (12-78); Albumin Level 3.4 gm/dl (3.4-5.0); Aspartate Aminotransferase 10 U/L (15-37); BUN Creatinine Ratio 13.5 (10-20); Blood Urea Nitrogen 17 mg/dl (7-18); Carbon Dioxide 33 mmol/L (21-32); Chloride 94 mmol/L (98-107); Creatinine Clr Calc Pharmacy 25.4 ml/min; Est GFR (African American) 46.5; Est GFR (Non-African American) 40.1; Glucose 161 mg/dl (70-99); Lipase 109 U/L (73-393); Potassium 4.1 mmol/L (3.5-5.1); Sodium 136 mmol/L (136-145)
--- NOTE | 2019-11-20 16:37 | Electrocardiogram Report ---
Test Reason : Blood Pressure : / mmHG Vent. Rate : 109 BPM Atrial Rate : 109 BPM P-R Int : 188 ms QRS Dur : 082 ms QT Int : 340 ms P-R-T Axes : 079 186 082 degrees QTc Int : 457 ms Poor data quality, interpretation may be adversely affected Sinus tachycardia Biatrial enlargement Right superior axis deviation Anterior infarct (cited on or before 20-NOV-2019) Abnormal ECG When compared with ECG of 28-MAY-2019 13:28, Questionable change in QRS axis Confirmed by Paulie Sidhu ([id number]) on 11/20/2019 4:37:14 PM Referred By: Confirmed By:Paulie Sidhu
[2019-11-20] MEDS ORDERED: IOVERSOL 100ml IV PRN (16:38)
[2019-11-20 16:45] LABS: Albumin Globulin Ratio 0.8 (0.9-2); Alkaline Phosphatase 118 U/L (45-117); Bilirubin,Total 0.7 mg/dl (0.2-1); Globulin 4.3 gm/dl (2.5-4.0); Total Protein 7.7 gm/dl (6.4-8.2); Troponin I < 0.015 ng/ml (0-0.045)
[2019-11-20] MEDS ORDERED: cefTRIAXone SODIUM 1,000 MG/50 ML BAG IV STA (16:49)
[2019-11-20] MEDS ORDERED: metroNIDAZOLE 500 MG/100 ML BAG IV STA (16:50)
[2019-11-20 16:51] LABS: iSTAT Creatinine 1.1 mg/dl (0.6-1.3); iSTAT Hemoglobin 16.3 g/dl (12.0-16.0); iSTAT Ionized Calcium 1.19 mmol/l (1.12-1.32); iSTAT Potassium 4.1 mmol/L (3.3-5.0)
--- NOTE | 2019-11-20 16:58 | CT Scan Report ---
CT SCAN OF THE ABDOMEN AND PELVIS WITH IV CONTRAST CLINICAL HISTORY: Vomiting. COMPARISON STUDY: Abdominal CT dated 12/24/2017. TECHNIQUE: Following the IV administration of 93 cc of Optiray 320, CT scan of the abdomen and pelvi s is performed from the lung bases to the proximal femora. Images are reviewed in the axial, sagittal , and coronal planes. IV contrast was administered without complication. A dose lowering technique wa s utilized adhering to the principles of ALARA. CT DOSE: 230.51 mGy.cm FINDINGS: Lung bases: The heart is normal in size and without pericardial effusion. Advanced emphysematous alfonso ge is noted at the lung bases. There is bibasilar scarring/atelectasis. No airspace consolidation or pleural effusion is identified. Liver: The contrast-enhanced liver is normal in size, contour, and attenuation. There is moderate int rahepatic biliary ductal dilatation. The hepatic veins and portal veins are patent. Gallbladder: Surgically absent noting clips in the gallbladder fossa. Spleen: The spleen is not identified and presumed surgically absent. Pancreas: Atrophic and grossly unremarkable. Adrenal glands: Unremarkable. Kidneys: The right kidney is not identified and presumed surgically absent. The contrast-enhanced lef t kidney demonstrates cortical atrophy and is without hydronephrosis. The left kidney enhances homoge neously. Abdominal vasculature: The abdominal aorta is normal in course and caliber noting advanced atheroscle rotic calcification. Stomach and bowel: There is a small hiatal hernia. The stomach is distended and fluid-filled. The sma ll bowel loops are distended and fluid-filled measuring up to 3.3 cm in diameter. There are numerous air-fluid levels. A transition point is suggested in the right lower quadrant on image #205, and the appearance is consistent with a small bowel obstruction. The distal small bowel and colon are decompr essed. There is no pneumatosis intestinalis or portal venous gas. The appendix is not identified and reported surgically absent. Peritoneum: There is a small volume of abdominopelvic ascites. No intraperitoneal free air is seen. Lymphadenopathy: None. Pelvic viscera: Question asymmetric bladder wall thickening at the left base of the bladder seen on i mage #320. The uterus is surgically absent. No adnexal lesion is seen. Skeletal structures: The skeletal structures are osteopenic. There is advanced lumbosacral spondylosi s and scoliosis. Advanced arthritic change is seen in the hips. There are bilateral hip joint effusio ns. No lytic or blastic lesions are seen. Soft tissues: The patient is cachectic. IMPRESSION: 1. Findings are consistent with a high-grade small bowel obstruction. A transition point is suggested in the right lower quadrant and this is likely on the basis of adhesions. 2. There is no intraperitoneal free air. No focally thick walled bowel loops are identified, and ther e is no pneumatosis intestinalis or portal venous gas. 3. Small volume of abdominopelvic ascites. 4. Advanced emphysema. 5. Question asymmetric left-sided bladder wall thickening at the base of the bladder. This is patholo gy indeterminant, and follow-up with urology is recommended. 6. The right kidney and spleen are presumed surgically absent. 7. Additional findings as above. ACT 112: Positive. There are findings on this exam that require communication between the performing entity and the patient following Patient Test Result Information Act ([place] Act 112) guidelines. Electronically signed by: Lenny Villa M.D. 11/20/2019 4:57 PM
--- NOTE | 2019-11-20 17:00 | XRay Report ---
XR chest 1V portable HISTORY: 79 years-old Female pain acute atypical chest pain COMPARISON: CT abdomen and pelvis of same day, chest radiograph 05/28/2019 TECHNIQUE: Portable AP view of the chest FINDINGS: Patient is slightly rotated. Cardiomegaly. Calcified plaque of the thoracic aortic arch. Emphysema wi th chronic interstitial coarsening. There is no pneumothorax, pleural effusion, overt pulmonary edema or airspace consolidation typical for pneumonia. Mild retrocardiac opacities suggest atelectasis. De generative changes of the shoulders and spine. Thoracolumbar sigmoidal scoliosis. Cholecystectomy. IMPRESSION: 1. Cardiomegaly without acute process. 2. Emphysema. ACT 112: Negative or not required by law. The above report was generated using voice recognition software. It may contain grammatical, syntax o r spelling errors. Electronically signed by: Jeffery Og M.D. 11/20/2019 4:59 PM
--- NOTE | 2019-11-20 18:47 | History & Physical Report ---
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 Now her abdomen discomfort improved but she remains tachycardic and hypertensive -CT abdomen: are consistent with a high-grade small bowel obstruction. A transition point is suggested in the right lower quadrant and this is likely on the basis of adhesions. -Emergency room provider contacted general surgery consult -Emergency provider have not been able to place NG tube successfully at this time but will re-attempt -mercado ordered to help with decompression bladder to see if this helps with bowel obstruction. CT abdomen also noting "Question asymmetric left-sided bladder wall thickening at the base of the bladder. This is pathology indeterminant, and follow-up with urology is recommended." Hypertensive Urgency Tachycardia -Heart rate above 110 bpm and sytolic blood pressure 200 -likely from abdominal discomfort -admit to PCU telemetry -morphine IV 5 mg every 6 hours if severe pain -order labetalol 10 mg IV x 1 -metoprolol 5 mg IV q6 hours prn if heart rate above 110 bpm -Enalaprilat q12 hours IV Leukocytosis -unclear whether there is infection or from dehydration -place on D5 1/2 normal saline at 60 cc/hr for now -send blood culture, ESR, CRP -empirically given IV ceftriaxone and IV metronidazole, continue ceftriaxone daily and IV metronidazole q8 hours for now empirically Chronic respiratory failure with hypoxia -on home oxygen -recommend to titrate oxygen supplementation to 92% O2 saturation in context of COPD and emphysema unless patient is in respiratory distress History of Lung cancer -in remission as per patient and her daughter Thrombocytosis, 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 -hold the aspirin for now because of SBO solitary kidney, 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 Code Status: DNR/DNI as discussed with patient and witnessed by her daughter Corinna [phone] History of Present Illness This is a patient with Chronic Back Pain from Spinal stenosis of lumbar region, Chronic narcotic/opioid pain medication use. she reports bowel movement earlier today prior to admission but then had abdominal pain but then had vomiting. 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 A transition point is suggested in the right lower quadrant and this is likely on the basis of adhesions. Emergency room provider contacted general surgery consult. Emergency provider have not been able to place NG tube successfully at this time but will re-attempt. patient denies fevers but has elevated WBC of 18,000. empirically given IV ceftriaxone and IV metronidazole by ED doctor. No acute shortness of breath, she is on chronic oxygen because of COPD/emphysema no chest pain, no palpitations, no dizziness. no problems with urination, no headache Primary Care Provider: Ron Ortega MD Allergies Allergy/AdvReac Type Severity Reaction Status Date / Time Penicillins Allergy Unknown hives Unverified 10/27/19 09:19 procaine Allergy Unknown SWELLING Verified 10/27/19 09:19 codeine AdvReac Unknown GI UPSET Unverified 10/27/19 09:19 Home Medications Home Medications Medication Instructions Recorded Confirmed Type atorvastatin [Lipitor] 10 mg PO QAM #0 05/12/16 11/20/19 History escitalopram oxalate [Lexapro] 20 mg PO QAM #0 12/28/16 11/20/19 History gabapentin [Neurontin] 600 mg PO BID #0 tab 01/25/17 11/20/19 History glucosamine sulfate 2 tabs PO QAM #0 tab 10/01/17 11/20/19 History coenzyme Q10 [Co Q-10] 0 mg PO QAM #0 12/24/17 11/20/19 History aspirin [Aspirin Low Dose] 81 mg PO QAM 07/11/18 11/20/19 History morphine 30 mg PO BID 07/11/18 11/20/19 History naloxone [Narcan] 0 mg INTRANASAL DIRECTED 07/11/18 11/20/19 History oxymetazoline 2 spray INTRANASAL Q12H PRN 07/11/18 11/20/19 History morphine 15 mg PO Q12 PRN 05/28/19 11/20/19 History bvnyzfgzmpe-otpnjbbox-bgtqmgom 1 inh INHALATION DAILY 11/20/19 11/20/19 History [Trelegy Ellipta] omeprazole 20 mg PO QAM 11/20/19 11/20/19 History Past Med/Surg History Medical History 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) "s/p resection, chemo and radiation 10 yrs ago" Bronchitis Chronic pain syndrome (Chronic 10/13/10) Chronic prescription opiate use (Chronic) CKD (chronic kidney disease), stage III (Chronic) COPD (chronic obstructive pulmonary disease) (Chronic) Depression (Chronic) Gastroesophageal reflux disease (Chronic 10/13/10) Hyperlipidemia Lumbar spinal stenosis (Chronic) Osteoporosis (Chronic) Pulmonary hypertension (Chronic) Stroke Surgical History H/O splenectomy (Chronic) History of adrenal surgery History of bladder surgery History of hysterectomy History of lung surgery History of tonsillectomy and adenoidectomy Hx of appendectomy (Chronic) S/P cholecystectomy (Chronic) Family History Mother Glaucoma Father Cancer Lung cancer Other Allergies No family history of adverse response to anesthesia No family history of bleeding disorder Social History Smoking Status: Current every day smoker Second Hand Exposure: Yes; Hx Alcohol Use: No Hx Substance Use: No Preferred Language: Kosovan current occupational status: retired Feels Safe at Home: Yes Review of Systems Review of Systems: All systems reviewed & are unremarkable except as noted in Subjective Physical Exam Constitutional: + thin Eyes: PERRL, conjunctivae normal, anicteric sclerae EOM intact bilaterally ENMT: external ear and nose normal, oropharynx normal Neck: trachea midline, no thyromegaly normal visual inspection Respiratory: normal respiratory effort, lungs clear to auscultation Cardiovascular: Rate/Rhythm: + tachycardic Gastrointestinal (Abdomen): Percussion/Palpation: abdomen soft Musculoskeletal: Head/Neck/Chest: normocephalic and head atraumatic Neurologic: PERRL, EOMI, accommodation nl, no face palsy, no dysarthria moves all extremities Psychiatric: A+Ox3, euthymic affect Results & Data Results & Data ([facility]) Vital Signs (Past 12 Hours) Vital Signs Temp Pulse Resp BP Pulse Ox 11/20/19 18:30 112 H 20 199/111 H 11/20/19 17:55 100 11/20/19 17:30 111 H 22 199/115 H 11/20/19 16:30 108 H 23 98 11/20/19 15:53 99 11/20/19 15:45 37.5 C 113 H 20 205/126 H 87 L
[2019-11-20] MEDS ORDERED: METOPROLOL TARTRATE 1 MG/ML VIAL IV PRN (18:48)
[2019-11-20] MEDS ORDERED: ACETAMINOPHEN 65 ML IV PRN (18:49)
[2019-11-20] MEDS ORDERED: ALBUT/IPRATROP 3MG/0.5MG NEB 3 ML VIAL NEB PRN (18:51)
[2019-11-20] MEDS ORDERED: DiphenhydrAMINE HCL 50 MG/ML VIAL IV PRN (19:00)
[2019-11-20] MEDS ORDERED: LABETALOL HCL IV 5 MG/ML 20ML IV STA (19:14)
[2019-11-20 19:44] LABS: C Reactive Protein 1.05 mg/dl (0-0.29); Magnesium 2.1 mg/dl (1.8-2.4); Phosphorus 4.4 mg/dl (2.5-4.9); Thyroid Stimulating Hormone 0.442 uIu/ml (0.300-4.500)
--- NOTE | 2019-11-20 20:09 | XRay Report ---
KUB CLINICAL HISTORY: Enteric tube placement. FINDINGS: 2 AP, portable, supine radiographs of the lower chest and upper abdomen are correlated with abdominal CT performed the same day 11/20/2019. An enteric tube has been placed. The tip projects bel ow the diaphragm over the mid stomach. There is evidence of persistent bowel obstruction. Cholecystec agnieszka clips are noted in the right upper quadrant. There is atherosclerotic calcification of the thora cic aorta. Emphysematous change and bibasilar scarring/atelectasis are similar to previous. Degenerat anusha change and scoliosis is noted in the spine. IMPRESSION: An enteric tube has been placed as above. Electronically signed by: Lenny Villa M.D. 11/20/2019 8:08 PM
--- NOTE | 2019-11-20 20:23 | Surgery Consultation ---
Date of Consultation November 20, 2019 Assessment & Plan (1) SBO (small bowel obstruction): -as pt. has numerous medical comorbidities will try conservative measures: -decompression with NGT -NPO status -IVF for hydration -will continue to follow while in hospital as above. pt seen. feeling better now/pain controlled since NGT placed. abd: soft. distended. minimal tenderness. multiple scars. admit. rehydration. keep NGT/NPO. no emergent surgical indication currently. will follow closely. recheck KUB in morning. NGT output very dark... rec PPI BID History of Present Illness History of Present Illness 79 year old female presented to the ED this evening as she developed abdominal pain that started earlier today. She has associated N/V. No fevers, shakes, chills. She notes a hx. of multiple abdominal surgeries. In the ED, WBC was elevated at 18K. A Ct scan of the abdomen showed concern for SBO. While in the ED, she had a NGT placed, and since placed has had output of approx. 1 liter. She notes relief of her symptoms since NGT placement and was in no distress at the time of my interview. Allergies Allergy/AdvReac Type Severity Reaction Status Date / Time Penicillins Allergy Unknown hives Unverified 10/27/19 09:19 procaine Allergy Unknown SWELLING Verified 10/27/19 09:19 codeine AdvReac Unknown GI UPSET Unverified 10/27/19 09:19 Home Medications Home Medications Medication Instructions Recorded Confirmed Type atorvastatin [Lipitor] 10 mg PO QAM #0 05/12/16 11/20/19 History escitalopram oxalate [Lexapro] 20 mg PO QAM #0 12/28/16 11/20/19 History gabapentin [Neurontin] 600 mg PO BID #0 tab 01/25/17 11/20/19 History glucosamine sulfate 2 tabs PO QAM #0 tab 10/01/17 11/20/19 History coenzyme Q10 [Co Q-10] 0 mg PO QAM #0 12/24/17 11/20/19 History aspirin [Aspirin Low Dose] 81 mg PO QAM 07/11/18 11/20/19 History morphine 30 mg PO BID 07/11/18 11/20/19 History naloxone [Narcan] 0 mg INTRANASAL DIRECTED 07/11/18 11/20/19 History oxymetazoline 2 spray INTRANASAL Q12H PRN 07/11/18 11/20/19 History morphine 15 mg PO Q12 PRN 05/28/19 11/20/19 History ddhecmnqyxy-vrsixubqz-ycoapezp 1 inh INHALATION DAILY 11/20/19 11/20/19 History [Trelegy Ellipta] omeprazole 20 mg PO QAM 11/20/19 11/20/19 History Patient History Medical History 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) "s/p resection, chemo and radiation 10 yrs ago" Bronchitis Chronic pain syndrome (Chronic 10/13/10) Chronic prescription opiate use (Chronic) CKD (chronic kidney disease), stage III (Chronic) COPD (chronic obstructive pulmonary disease) (Chronic) Depression (Chronic) Gastroesophageal reflux disease (Chronic 10/13/10) Hyperlipidemia Lumbar spinal stenosis (Chronic) Osteoporosis (Chronic) Pulmonary hypertension (Chronic) Stroke Surgical History H/O splenectomy (Chronic) History of adrenal surgery History of bladder surgery History of hysterectomy History of lung surgery History of tonsillectomy and adenoidectomy Hx of appendectomy (Chronic) S/P cholecystectomy (Chronic) Family History Mother Glaucoma Father Cancer Lung cancer Other Allergies No family history of adverse response to anesthesia No family history of bleeding disorder Social History Smoking Status: Current every day smoker Second Hand Exposure: Yes; Hx Alcohol Use: No Hx Substance Use: No Preferred Language: [place] current occupational status: retired Feels Safe at Home: Yes Review of Systems Constitutional: no fever and no chills Eyes: no diplopia Ear, Nose, Mouth, Throat: no ear pain Respiratory: no cough and no dyspnea Cardiovascular: no chest pain Gastrointestinal: + abdominal pain and + nausea Genitourinary: no dysuria Musculoskeletal: no back pain Integumentary: no rash Neurologic: no localized weakness Physical Exam Constitutional: + thin; no acute distress Eyes: no conjunctival abnormality ENMT: Ears: no hearing impairment Neck: trachea midline Respiratory: normal respiratory effort; no respiratory distress and no labored breathing BS slightly decreased at bases Cardiovascular: Rate/Rhythm: regular rate and regular rhythm Gastrointestinal (Abdomen): BS are hypoactive; abdomen soft with slight distention, no rebound tenderness or guarding; minimal to no pain with palpation Musculoskeletal: no calf pain Skin: no rashes, warm and dry Neurologic: moves all extremities Psychiatric: A+Ox3, euthymic affect Results & Data Vital Signs (Past 12 Hours) Vital Signs Temp Pulse Resp BP Pulse Ox 11/20/19 19:46 90 21 189/94 H 94 11/20/19 19:36 114 H 20 173/117 H 99 11/20/19 19:30 108 H 22 204/134 H 98 11/20/19 19:00 109 H 18 216/123 H 11/20/19 18:30 112 H 20 199/111 H 11/20/19 17:55 100 11/20/19 17:30 111 H 22 199/115 H 11/20/19 16:30 108 H 23 98 11/20/19 15:53 99 11/20/19 15:45 37.5 C 113 H 20 205/126 H 87 L PG Care Time/CCT Total # of Minutes Spent Total Time Spent with Patient: Total time spent is greater than 50% in coordination of care (as documented) at patient's floor/unit and/or counseling patient: Coding Level of Care Code 70299 Inpt Consult Level 4 Diagnoses SBO (small bowel obstruction) K56.609
[2019-11-20] MEDS: D5W AND 1/2NSS 1,000 ML IV SCH (22:20)
[2019-11-20] MEDS: ENALAPRILAT 1.25 MG in DEXTROSE 5% 25 ML IV SCH (22:21)
[2019-11-20] MEDS: PANTOprazole 40 MG in SYRINGE 0 ML IV SCH (22:21)
[2019-11-21] MEDS: metroNIDAZOLE 500 MG/100 ML BAG IV SCH ×3 (03:18→17:18)
[2019-11-21] MEDS ORDERED: ACETAMINOPHEN 1,000 MG/100 ML VIAL IV PRN (04:37)
[2019-11-21 06:08] LABS: Basophils # (auto) 0.02 K/uL (0-0.2); Basophils % (auto) 0.1 %; Hematocrit (blood only) 40.9 % (37-47); Hemoglobin 15.5 g/dL (12.0-16.0); Immature Granulocytes # (auto) 0.04 K/uL (0.00-0.02); Immature Granulocytes % (auto) 0.2 %; Lymphocytes # (auto) 1.55 K/uL (1.2-3.4); Lymphocytes % (auto) 9.6 %; Mean Corpuscular Hemoglobin 33.6 pg (25-34); Mean Corpuscular Hgb Conc 37.9 g/dL (32-36); Mean Corpuscular Volume 88.7 fL (80-100); Mean Platelet Volume 10.3 fL (7.4-10.4); Monocytes # (auto) 0.82 K/uL (0.11-0.59); Monocytes % (auto) 5.1 %; Neutrophils # (auto) 13.68 K/uL (1.4-6.5); Platelet Count 523 K/uL (130-400); RDW Coefficient of Variation 14.8 % (11.5-14.5); RDW Standard Deviation 47.9 fL (36.4-46.3); Red Blood Count 4.61 M/uL (4.2-5.4); White Blood Count 16.11 K/uL (4.8-10.8)
[2019-11-21 06:52] LABS: Albumin Level 3.1 gm/dl (3.4-5.0); BUN Creatinine Ratio 13.6 (10-20); Calcium 9.6 mg/dl (8.5-10.1); Creatinine Clr Calc Pharmacy 29.8 ml/min; Est GFR (African American) 62.1; Est GFR (Non-African American) 53.5; Magnesium 1.8 mg/dl (1.8-2.4); Potassium 3.2 mmol/L (3.5-5.1)
[2019-11-21 07:01] LABS: Albumin Globulin Ratio 0.8 (0.9-2); Bilirubin,Total 0.9 mg/dl (0.2-1); Globulin 3.8 gm/dl (2.5-4.0); Phosphorus 2.5 mg/dl (2.5-4.9); Total Protein 6.9 gm/dl (6.4-8.2)
--- NOTE | 2019-11-21 07:44 | XRay Report ---
KUB HISTORY: Small bowel obstruction. sbo COMPARISON: KUB and CT 11/20/2019 FINDINGS: Distal tip enteric tube projects over the expected location of the mid gastric lumen. Persi stent dilated loops of small bowel measure up to 3.4 cm compatible with ongoing small bowel obstructi on. This appears generally stable from comparison. Cholecystectomy. Contrast noted within the urinary bladder lumen. Vascular calcifications. Sigmoidal thoracolumbar scoliosis. Degenerative changes of t he spine, pelvis and hips. No renal calculi. No ureteral calculi. No pneumoperitoneum or pneumatosis. No fracture. IMPRESSION: 1. Distal tip of enteric tube projects within the mid gastric lumen. 2. Persistent small bowel obstruction. No pneumoperitoneum. 3. Cholecystectomy. ACT 112: Negative or not required by law. The above report was generated using voice recognition software. It may contain grammatical, syntax o r spelling errors. Electronically signed by: Jeffery Og M.D. 11/21/2019 7:43 AM
[2019-11-21] MEDS: MAGNESIUM SULFATE / D5W 1 GM/100 ML BAG IV SCH ×2 (07:55→10:10)
[2019-11-21] MEDS: POTASSIUM CHLORIDE / WTR 10 MEQ/100 ML PLCT IV SCH ×4 (08:19→21:26)
[2019-11-21] MEDS: PANTOprazole 40 MG in SYRINGE 0 ML IV SCH ×2 (08:20→20:57)
[2019-11-21] MEDS: FLUTICASONE/VILANTEROL 100/25MCG 14 PUFFS/INHALER INH SCH (08:20)
--- NOTE | 2019-11-21 08:24 | Hospitalist Progress Note ---
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 Now her abdomen discomfort improved but she remains tachycardic and hypertensive -CT abdomen: are consistent with a high-grade small bowel obstruction. A transition point is suggested in the right lower quadrant and this is likely on the basis of adhesions. -Emergency room provider contacted general surgery consult -Emergency provider have not been able to place NG tube successfully at this time but will re-attempt CT abdomen also noting "Question asymmetric left-sided bladder wall thickening at the base of the bladder. This is pathology indeterminant, and follow-up with urology is recommended." initially ordered mercado but patient is voiding. asked nurse to send the UA/urine culture next time she voids Hypertensive Urgency Tachycardia -Heart rate above 110 bpm and sytolic blood pressure 200, likely from abdominal discomfort, order labetalol 10 mg IV x 1 when in ER -admitted to PCU telemetry -morphine IV 5 mg every 6 hours if severe pain -metoprolol 5 mg IV q6 hours prn if heart rate above 110 bpm -Enalaprilat q12 hours IV, monitor the renal function Leukocytosis -unclear whether there is infection or from dehydration -place on D5 1/2 normal saline at 60 cc/hr for now -send blood culture, ESR, CRP -empirically given IV ceftriaxone and IV metronidazole in the ED, continue ceftriaxone daily and IV metronidazole q8 hours for now empirically Chronic respiratory failure with hypoxia -on home oxygen -recommend to titrate oxygen supplementation to 92% O2 saturation in context of COPD and emphysema unless patient is in respiratory distress History of Lung cancer in the past -in remission as per patient and her daughter Thrombocytosis, 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 -hold the aspirin for now because of SBO solitary kidney, 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 she appears comfortable and I did not wish to awaken her. her heart rates are about 99 bpm and in sinus as confirmed by telemetry. She is on nasal cannula oxygen and lung sound clear. the NG tube suctioning dark bilious fluid. her blood pressure checked recently was 168/90 which is improved from admission. Review of Systems Review of Systems: Unobtainable due to cognitive status (patient sleeping) Physical Exam Constitutional: + thin ENMT: external ear and nose normal, oropharynx normal (has NG tube suctioning dark bilious fluid) Neck: trachea midline, no thyromegaly normal visual inspection Respiratory: normal respiratory effort, lungs clear to auscultation (nasal cannula oxygen) Cardiovascular: Rate/Rhythm: regular rate and regular rhythm Gastrointestinal (Abdomen): Percussion/Palpation: abdomen soft Musculoskeletal: Head/Neck/Chest: normocephalic and head atraumatic Psychiatric: patient sleeping Results & Data Results & Data ([facility]) Vital Signs (Past 12 Hours) Vital Signs Temp Pulse Pulse Resp BP BP Pulse Ox 11/21/19 07:09 36.9 C 98 H 20 168/90 H 94 11/21/19 04:31 36.8 C 100 H 18 171/96 H 94 11/21/19 00:00 101 H 11/20/19 23:45 37.1 C 103 H 23 185/103 H 92 11/20/19 21:00 92 H 11/20/19 20:31 37.1 C 92 H 203/81 H 96
--- NOTE | 2019-11-21 09:23 | Surgery Progress Note ---
Date of Service November 21, 2019 Assessment & Plan (1) SBO (small bowel obstruction): SBO persistent on xray this AM which I reviewed/interpreted clinically stable continue NGT/IVF/NPO if no improvement in next 1-2 days will obtain SBFT. surgery would be last resort Subjective pt resting comfortably. denies pain. no bowel fx yet. Physical Exam Physical Exam: alert but sleepy abd: soft. less distended than last evening. non-tender. Results & Data Vital Signs (Past 12 Hours) Vital Signs Temp Pulse Pulse Resp BP BP Pulse Ox 11/21/19 07:09 36.9 C 98 H 20 168/90 H 94 11/21/19 04:31 36.8 C 100 H 18 171/96 H 94 11/21/19 00:00 101 H 11/20/19 23:45 37.1 C 103 H 23 185/103 H 92 PG Care Time/CCT Total # of Minutes Spent Total Time Spent with Patient: Total time spent is greater than 50% in coordination of care (as documented) at patient's floor/unit and/or counseling patient: Coding Level of Care Code 57746 Subseq Hosp Care Lvl 3 Diagnoses SBO (small bowel obstruction) K56.609
[2019-11-21] MEDS: ENALAPRILAT 1.25 MG in DEXTROSE 5% 25 ML IV SCH ×2 (10:15→22:35)
[2019-11-21] MEDS ORDERED: POTASSIUM PHOS 3 MMOL/1 ML INFUSION IV STA (15:47)
[2019-11-21] MEDS ORDERED: POTASSIUM PHOSPHATE 21 MMOL in SODIUM CHLORIDE 0.9% 500 ML IV ONE (16:15)
[2019-11-21 16:20] LABS: Albumin Level 3.1 gm/dl (3.4-5.0); BUN Creatinine Ratio 11.7 (10-20); Calcium 9.5 mg/dl (8.5-10.1); Creatinine Clr Calc Pharmacy 33.5 ml/min; Est GFR (African American) 71.4; Est GFR (Non-African American) 61.6; Magnesium 2.4 mg/dl (1.8-2.4); Potassium 3.1 mmol/L (3.5-5.1)
[2019-11-21 16:29] LABS: Albumin Globulin Ratio 0.8 (0.9-2); Bilirubin,Total 0.9 mg/dl (0.2-1); Globulin 3.8 gm/dl (2.5-4.0); Phosphorus 1.8 mg/dl (2.5-4.9); Total Protein 6.9 gm/dl (6.4-8.2)
[2019-11-21 16:49] LABS: Appearance Urine Cloudy (Clear); Bacteria Urine Automated Negative (Negative); Bilirubin Urine Negative (Negative); Blood Urine Negative (Negative); Color Urine Yellow; Glucose Urine UA Trace (Negative); Ketones Urine Negative (Negative); Leukocyte Esterase Urine Negative (Negative); Nitrite Urine Negative (Negative); Protein Urine Negative (Negative); RBC Urine Automated 0-4 /hpf (0-4); Specific Gravity Urine 1.013 (1.000-1.030); Urobilinogen Urine Negative (Negative); pH Urine 8.5 (4.5-7.5)
[2019-11-21] MEDS: ONDANSETRON INJ 2 MG/ML 2 ML VIAL IV PRN (17:18)
[2019-11-21] MEDS ORDERED: cefTRIAXone SODIUM 1,000 MG in DEXTROSE 5% 50 ML IV SCH (18:00)
[2019-11-21] MEDS: LABETALOL HCL IV 5 MG/ML 20ML IV PRN (20:23)
[2019-11-21] MEDS: MoRPHine SULFATE 2 MG/ML CARP IV PRN (20:56)
[2019-11-21] MEDS: LORazepam 0.25 MG/0.5 ML VIAL IV PRN (21:23)
[2019-11-21] MEDS: D5W AND 1/2NSS 1,000 ML IV SCH (21:28)
[2019-11-22] MEDS: LABETALOL HCL IV 5 MG/ML 20ML IV PRN ×3 (00:03→20:18)
[2019-11-22] MEDS: MoRPHine SULFATE 2 MG/ML CARP IV PRN ×3 (02:24→20:17)
--- NOTE | 2019-11-22 06:02 | Surgery Progress Note ---
Date of Service November 22, 2019 Assessment & Plan (1) SBO (small bowel obstruction): clinically improving. will check KUB. if KUB improved can consider NGT clamping trial. Subjective pt seen. per nursing she pulled her ngt out multiple times... 300 cc's overnight.... pt feeling better. less pain. +flatus. no bm yet. Physical Exam Physical Exam: alert. nad abd: much less distended. soft. nt. Results & Data Vital Signs (Past 12 Hours) Vital Signs Temp Pulse Pulse Resp BP Pulse Ox 11/22/19 03:59 36.9 C 85 18 158/82 H 94 11/22/19 00:00 80 11/21/19 23:00 36.8 C 92 H 16 187/95 H 87 L 11/21/19 19:37 37.0 C 93 H 16 174/83 H 93 PG Care Time/CCT Total # of Minutes Spent Total Time Spent with Patient: Total time spent is greater than 50% in coordination of care (as documented) at patient's floor/unit and/or counseling patient: Coding Level of Care Code 45583 Subseq Hosp Care Lvl 3 Diagnoses SBO (small bowel obstruction) K56.609
--- NOTE | 2019-11-22 08:27 | XRay Report ---
KUB HISTORY: Small bowel obstruction sbo COMPARISON: KUB 11/21/2019 FINDINGS: Distal tip of enteric tube projects over the left midabdomen expected location of the mid g astric body. There is decreased small bowel dilation now measuring up to 2.4 cm, previously 3.4 cm. S urgical clips project over the central abdomen. Arterial calcifications. Cholecystectomy. No renal c alculi. No ureteral calculi. No pneumoperitoneum or pneumatosis. Scoliosis of the lumbar spine with m ultilevel degenerative changes. Osteoarthritis of the hips. No fracture. IMPRESSION: 1. Distal tip of enteric tube projects over the expected location of the mid gastric lumen. 2. Decreased small bowel distention suggests resolving small bowel obstruction. ACT 112: Negative or not required by law. The above report was generated using voice recognition software. It may contain grammatical, syntax o r spelling errors. Electronically signed by: Jeffery Og M.D. 11/22/2019 8:26 AM
[2019-11-22] MEDS: D5W AND 1/2NSS 1,000 ML IV SCH (08:45)
[2019-11-22] MEDS: FLUTICASONE/VILANTEROL 100/25MCG 14 PUFFS/INHALER INH SCH (08:46)
[2019-11-22] MEDS: PANTOprazole 40 MG in SYRINGE 0 ML IV SCH ×2 (08:46→20:18)
[2019-11-22 10:26] LABS: Basophils # (auto) 0.02 K/uL (0-0.2); Basophils % (auto) 0.1 %; Eosinophils # (auto) 0.02 K/uL (0-0.5); Eosinophils % (auto) 0.1 %; Hematocrit (blood only) 41.3 % (37-47); Hemoglobin 14.2 g/dL (12.0-16.0); Immature Granulocytes # (auto) 0.04 K/uL (0.00-0.02); Immature Granulocytes % (auto) 0.3 %; Lymphocytes # (auto) 1.98 K/uL (1.2-3.4); Lymphocytes % (auto) 14.5 %; Mean Corpuscular Hemoglobin 30.3 pg (25-34); Mean Corpuscular Hgb Conc 34.4 g/dL (32-36); Mean Corpuscular Volume 88.1 fL (80-100); Monocytes # (auto) 1.21 K/uL (0.11-0.59); Monocytes % (auto) 8.9 %; Neutrophils # (auto) 10.36 K/uL (1.4-6.5); Neutrophils % (auto) 76.1 %; Platelet Count 520 K/uL (130-400); RDW Coefficient of Variation 14.5 % (11.5-14.5); RDW Standard Deviation 46.6 fL (36.4-46.3); Red Blood Count 4.69 M/uL (4.2-5.4); White Blood Count 13.63 K/uL (4.8-10.8)
[2019-11-22] MEDS: ENALAPRILAT 1.25 MG in DEXTROSE 5% 25 ML IV SCH ×2 (10:36→22:22)
[2019-11-22 10:47] LABS: BUN Creatinine Ratio 8.8 (10-20); Calcium 9.9 mg/dl (8.5-10.1); Creatinine Clr Calc Pharmacy 27.5 ml/min; Est GFR (African American) 62.1; Est GFR (Non-African American) 53.5; Potassium 2.9 mmol/L (3.5-5.1)
[2019-11-22 10:59] LABS: Phosphorus 2.5 mg/dl (2.5-4.9)
[2019-11-22] MEDS ORDERED: POTASSIUM PHOS 3 MMOL/1 ML INFUSION IV STA (11:10)
--- NOTE | 2019-11-22 11:28 | Hospitalist Progress Note ---
Date of Service November 22, 2019 Assessment & Plan (1) SBO (small bowel obstruction): Chronic Back Pain from Spinal stenosis of lumbar region, Chronic narcotic/opioid pain medication use Bladder abnormality -patient has program host use of morphine and takes morphine at least 30 mg once a day every day for years -she reports bowel movement earlier today prior to admission but then had abdominal pain but then had vomiting. Now her abdomen discomfort improved but she remains tachycardic and hypertensive -CT abdomen: are consistent with a high-grade small bowel obstruction. A transition point is suggested in the right lower quadrant and this is likely on the basis of adhesions. -Emergency room provider contacted general surgery consult and was able to place NG tube CT abdomen also noting "Question asymmetric left-sided bladder wall thickening at the base of the bladder. This is pathology indeterminant, and follow-up with urology is recommended." initially ordered mercado but patient is voiding, UA with no bacteria on 11/21/2019 -KUB on 11/22/2019: Distal tip of enteric tube projects over the left midabdomen expected location of the mid gastric body. There is decreased small bowel dilation now measuring up to 2.4 cm, previously 3.4 cm patient reports she is passing gas, no bowel movements yet, there is now less output from the NG tube. continue NG tube for now Hypertensive Urgency Tachycardia -Heart rate above 110 bpm and systolic blood pressure 200 on presentation, likely from abdominal discomfort, ordered labetalol 10 mg IV x 1 when in ER -admitted to PCU telemetry -morphine IV 5 mg every 6 hours if severe pain -labetalol mg 10 mg IV q8 hours prn if heart rate above 110 bpm -Enalaprilat q12 hours IV, monitor the renal function Leukocytosis -admission WBC 18,000 unclear whether there is infection or from dehydration -continue place on D5 1/2 normal saline at 60 cc/hr for now -UA from 11/21/2019 with no bacteria, WBC downtrend to 13,000 by 11/22/2019 and admission blood cultures so far no growth to date, stopped the empiric ceftriaxone and flagyl Hypokalemia, Hypophosphatemia from GI losses from NG tube suction -continue to replace potassium, phosphorous and and magnesium Chronic respiratory failure with hypoxia -on home oxygen -recommend to titrate oxygen supplementation to 92% O2 saturation in context of COPD and emphysema unless patient is in respiratory distress History of Lung cancer in the past -in remission as per patient and her daughter Thrombocytosis, 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 continue NG tube for now she reports some shoulder pain. but no acute back pain. no abdomen pain. no chest pain. breathing comfortably on nasal cannula. her daughter at bedside, and I asked her to bring in patient's outpatient medications for medication re concilliation serum potassium again low as 2.9 Review of Systems Review of Systems: All systems reviewed & are unremarkable except as noted in Subjective Physical Exam Constitutional: + thin Eyes: PERRL, conjunctivae normal, anicteric sclerae EOM intact bilaterally ENMT: external ear and nose normal, oropharynx normal (has NG tube suctioning dark bilious fluid) Neck: trachea midline, no thyromegaly normal visual inspection Respiratory: normal respiratory effort, lungs clear to auscultation (nasal cannula oxygen) Cardiovascular: Rate/Rhythm: regular rate and regular rhythm Gastrointestinal (Abdomen): Percussion/Palpation: abdomen soft Musculoskeletal: Head/Neck/Chest: normocephalic and head atraumatic Neurologic: PERRL, EOMI, accommodation nl, no face palsy, no dysarthria moves all extremities Psychiatric: A+Ox3, euthymic affect Results & Data Results & Data ([facility]) Vital Signs (Past 12 Hours) Vital Signs Temp Pulse Pulse Resp BP Pulse Ox 11/22/19 07:57 37.2 C 86 18 164/77 H 97 11/22/19 07:32 84 11/22/19 03:59 36.9 C 85 18 158/82 H 94 11/22/19 00:00 80
[2019-11-22] MEDS ORDERED: POTASSIUM PHOSPHATE 24 MMOL in SODIUM CHLORIDE 0.9% 500 ML IV ONE (11:30)
[2019-11-22] MEDS ORDERED: MAGNESIUM SULFATE / D5W 1 GM/100 ML BAG IV ONE (11:30)
[2019-11-22] MEDS: POTASSIUM CHLORIDE / WTR 10 MEQ/100 ML PLCT IV SCH ×3 (12:05→14:15)
[2019-11-22 17:40] LABS: BUN Creatinine Ratio 9.1 (10-20); Calcium 9.5 mg/dl (8.5-10.1); Creatinine Clr Calc Pharmacy 28.4 ml/min; Est GFR (African American) 64.4; Est GFR (Non-African American) 55.5; Potassium 3.3 mmol/L (3.5-5.1)
[2019-11-22] MEDS: ONDANSETRON INJ 2 MG/ML 2 ML VIAL IV PRN (20:30)
[2019-11-22] MEDS: LORazepam 0.25 MG/0.5 ML VIAL IV PRN (22:22)
[2019-11-23] MEDS: D5W AND 1/2NSS 1,000 ML IV SCH ×2 (00:11→15:56)
[2019-11-23] MEDS: MoRPHine SULFATE 2 MG/ML CARP IV PRN ×2 (03:12→08:46)
[2019-11-23 07:56] LABS: Albumin Globulin Ratio 0.8 (0.9-2); Albumin Level 3.2 gm/dl (3.4-5.0); BUN Creatinine Ratio 8.3 (10-20); Bilirubin,Total 0.7 mg/dl (0.2-1); Calcium 9.4 mg/dl (8.5-10.1); Creatinine Clr Calc Pharmacy 26.6 ml/min; Est GFR (African American) 62.1; Est GFR (Non-African American) 53.5; Globulin 3.9 gm/dl (2.5-4.0); Phosphorus 2.5 mg/dl (2.5-4.9); Potassium 2.8 mmol/L (3.5-5.1); Total Protein 7.1 gm/dl (6.4-8.2)
[2019-11-23] MEDS ORDERED: POTASSIUM PHOS 3 MMOL/1 ML INFUSION IV STA (08:10)
--- NOTE | 2019-11-23 08:16 | Hospitalist Progress Note ---
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 reviewed home medications as brought in by daughter. expressed concern that for when patient is discharged from hospital that she should cut back her home usage of 30 mg morphine tablets from twice a day to half the total daily dose to minimize risk of future bowel obstruction -she reports bowel movement earlier today prior to admission but then had abdominal pain but then had vomiting. Now her abdomen discomfort improved but she remains tachycardic and hypertensive -CT abdomen: are consistent with a high-grade small bowel obstruction. A transition point is suggested in the right lower quadrant and this is likely on the basis of adhesions. -Emergency room provider contacted general surgery consult and was able to place NG tube CT abdomen also noting "Question asymmetric left-sided bladder wall thickening at the base of the bladder. This is pathology indeterminant, and follow-up with urology is recommended." initially ordered mercado but patient is voiding, UA with no bacteria on 11/21/2019, discussed with patient and her family about outpatient urology follow up in regards to admission CT findings of left sided bladder wall thickening, mercado in place -KUB on 11/22/2019: Distal tip of enteric tube projects over the left midabdomen expected location of the mid gastric body. There is decreased small bowel dilation now measuring up to 2.4 cm, previously 3.4 cm patient reports she is passing gas, no bowel movements yet, there is now less output from the NG tube. -11/23/2019: patient pulled her NG tube overnight but reported bowel movement overnight. Plan to repeat KUB on 11/23/2019 before discussing if can advance diet to clear liquids Hypertensive Urgency Tachycardia -Heart rate above 110 bpm and systolic blood pressure 200 on presentation, likely from abdominal discomfort, ordered labetalol 10 mg IV x 1 when in ER -admitted to PCU telemetry -morphine IV 5 mg every 6 hours if severe pain -labetalol mg 10 mg IV q8 hours prn if heart rate above 110 bpm -Enalaprilat q12 hours IV, monitor the renal function Leukocytosis -admission WBC 18,000 unclear whether there is infection or from dehydration -continue place on D5 1/2 normal saline at 60 cc/hr -UA from 11/21/2019 with no bacteria, WBC downtrend to 13,000 by 11/22/2019 and admission blood cultures so far no growth to date, stopped the empiric ceftriaxone and flagyl -follow CBC on 11/23/2019 Hypokalemia, Hypophosphatemia from GI losses from NG tube suction -continue to replace potassium, phosphorous, repeat labs in afternoon of 11/23/2019 Chronic respiratory failure with hypoxia -on home oxygen -recommend to titrate oxygen supplementation to 92% O2 saturation in context of COPD and emphysema unless patient is in respiratory distress History of Lung cancer in the past -in remission as per patient and her daughter Thrombocytosis, 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 Plan to repeat KUB on 11/23/2019 before discussing if can advance diet to clear liquids no acute pain today. breathing on nasal cannula. no acute shortness of breath. no vomiting. no dizziness. no headache Review of Systems Review of Systems: All systems reviewed & are unremarkable except as noted in Subjective Physical Exam Constitutional: + thin Eyes: PERRL, conjunctivae normal, anicteric sclerae EOM intact bilaterally ENMT: external ear and nose normal, oropharynx normal (has NG tube suctioning dark bilious fluid) Neck: trachea midline, no thyromegaly normal visual inspection Respiratory: normal respiratory effort, lungs clear to auscultation (nasal cannula oxygen) Cardiovascular: Rate/Rhythm: regular rate and regular rhythm Gastrointestinal (Abdomen): Percussion/Palpation: abdomen soft Musculoskeletal: Head/Neck/Chest: normocephalic and head atraumatic Neurologic: PERRL, EOMI, accommodation nl, no face palsy, no dysarthria moves all extremities Psychiatric: A+Ox3, euthymic affect Genitourinary: mercado Results & Data Results & Data ([facility]) Vital Signs (Past 12 Hours) Vital Signs Temp Pulse Resp BP Pulse Ox 11/23/19 07:53 37.0 C 86 20 160/81 H 99 07/27/20 04:31 36.5 C 85 18 170/93 H 96 11/22/19 22:20 36.9 C 70 16 194/95 H 97
[2019-11-23] MEDS ORDERED: POTASSIUM CHLORIDE 20 MEQ/15 ML UDC PO ONE (08:30)
[2019-11-23] MEDS ORDERED: POTASSIUM PHOSPHATE 24 MMOL in SODIUM CHLORIDE 0.9% 500 ML IV ONE (08:30)
--- NOTE | 2019-11-23 08:33 | XRay Report ---
KUB CLINICAL HISTORY: follow sbo, patient reported bowel movement yesterday. COMPARISON STUDY: KUB November 22, 2019. FINDINGS: Nasogastric tube has been removed. A few prominent loops of gas-filled small bowel are note d. Appearance is similar to prior exam. There are scattered colonic and rectal gas. Scoliosis of the thoracolumbar spine is incidentally noted as well as osteoarthritis of both hips. There are upper abd ominal surgical clips. IMPRESSION: No significant change in a few prominent loops of gas-filled small bowel. Significant im provement since exam of November 21, 2019. The findings suggest an improving small bowel obstruction. ACT 112: Negative or not required by law. Electronically signed by: Yehuda Miller M.D. 11/23/2019 8:32 AM
[2019-11-23] MEDS: POTASSIUM CHLORIDE / WTR 10 MEQ/100 ML PLCT IV SCH ×3 (08:38→10:27)
[2019-11-23] MEDS: PANTOprazole 40 MG in SYRINGE 0 ML IV SCH ×2 (08:38→20:16)
[2019-11-23] MEDS: FLUTICASONE/VILANTEROL 100/25MCG 14 PUFFS/INHALER INH SCH (08:39)
--- NOTE | 2019-11-23 08:41 | Surgery Progress Note ---
Date of Service November 23, 2019 Assessment & Plan (1) SBO (small bowel obstruction): Patient here with small bowel obstruction Patient self d/c'd NGT overnight She is passing flatus and had a BM yesterday Reports improvement in her abdominal pain, denies nausea KUB this AM revealed improving SBO Can trial starting clear liquids today Will will continue to follow as above. +bowel fx. NGT self removed. fabio clears. can advance to full liquids Subjective Patient states she is feeling well. Did pull her NGT out overnight. Had a BM yesterday, states she is passing gas. Says her pain is much improved. Denies N/V. Physical Exam Physical Exam: awake Gastrointestinal (Abdomen): Inspection/Auscultation: abdomen not distended Percussion/Palpation: abdomen soft; abdomen nontender Results & Data Vital Signs (Past 12 Hours) Vital Signs Temp Pulse Pulse Resp BP Pulse Ox 11/23/19 08:00 81 11/23/19 07:53 37.0 C 86 20 160/81 H 99 11/23/19 04:31 36.5 C 85 18 170/93 H 96 11/22/19 22:20 36.9 C 70 16 194/95 H 97 PG Care Time/CCT Total # of Minutes Spent Total Time Spent with Patient: Total time spent is greater than 50% in coordination of care (as documented) at patient's floor/unit and/or counseling patient: Coding Level of Care Code 31367 Subseq Hosp Care Lvl 2 Diagnoses SBO (small bowel obstruction) K56.609
[2019-11-23] MEDS: ENALAPRILAT 1.25 MG in DEXTROSE 5% 25 ML IV SCH (09:56)
[2019-11-23 14:06] LABS: Basophils # (auto) 0.01 K/uL (0-0.2); Basophils % (auto) 0.1 %; Eosinophils # (auto) 0.05 K/uL (0-0.5); Eosinophils % (auto) 0.5 %; Hematocrit (blood only) 40.6 % (37-47); Hemoglobin 13.8 g/dL (12.0-16.0); Immature Granulocytes # (auto) 0.01 K/uL (0.00-0.02); Immature Granulocytes % (auto) 0.1 %; Lymphocytes # (auto) 1.72 K/uL (1.2-3.4); Lymphocytes % (auto) 17.5 %; Mean Corpuscular Hemoglobin 30.1 pg (25-34); Mean Corpuscular Volume 88.5 fL (80-100); Mean Platelet Volume 9.8 fL (7.4-10.4); Monocytes # (auto) 1.13 K/uL (0.11-0.59); Monocytes % (auto) 11.5 %; Neutrophils # (auto) 6.93 K/uL (1.4-6.5); Neutrophils % (auto) 70.3 %; Platelet Count 500 K/uL (130-400); RDW Coefficient of Variation 14.2 % (11.5-14.5); RDW Standard Deviation 45.9 fL (36.4-46.3); Red Blood Count 4.59 M/uL (4.2-5.4); White Blood Count 9.85 K/uL (4.8-10.8)
[2019-11-23 14:35] LABS: BUN Creatinine Ratio 7.6 (10-20); Calcium 8.9 mg/dl (8.5-10.1); Creatinine Clr Calc Pharmacy 26.8 ml/min; Est GFR (African American) 62.8; Est GFR (Non-African American) 54.2; Phosphorus 3.4 mg/dl (2.5-4.9); Potassium 3.6 mmol/L (3.5-5.1)
[2019-11-23] MEDS: LABETALOL HCL IV 5 MG/ML 20ML IV PRN (15:03)
[2019-11-23] MEDS ORDERED: SENNOSIDES 8.8 MG/5 ML UDC PO STA (16:42)
[2019-11-23] MEDS: AMLODIPINE BESYLATE 5 MG TAB PO SCH (17:49)
[2019-11-23] MEDS: SENNOSIDES 8.8 MG/5 ML UDC PO SCH (20:17)
[2019-11-24] MEDS: LORazepam 0.25 MG/0.5 ML VIAL IV PRN ×2 (00:12→22:01)
[2019-11-24 06:18] LABS: Basophils # (auto) 0.01 K/uL (0-0.2); Basophils % (auto) 0.1 %; Eosinophils # (auto) 0.24 K/uL (0-0.5); Eosinophils % (auto) 2.2 %; Hematocrit (blood only) 44.2 % (37-47); Hemoglobin 15.5 g/dL (12.0-16.0); Immature Granulocytes # (auto) 0.03 K/uL (0.00-0.02); Immature Granulocytes % (auto) 0.3 %; Lymphocytes # (auto) 2.68 K/uL (1.2-3.4); Lymphocytes % (auto) 24.7 %; Mean Corpuscular Hemoglobin 30.8 pg (25-34); Mean Corpuscular Hgb Conc 35.1 g/dL (32-36); Mean Corpuscular Volume 87.7 fL (80-100); Mean Platelet Volume 9.7 fL (7.4-10.4); Monocytes # (auto) 1.15 K/uL (0.11-0.59); Monocytes % (auto) 10.6 %; Neutrophils # (auto) 6.72 K/uL (1.4-6.5); Neutrophils % (auto) 62.1 %; Platelet Count 546 K/uL (130-400); RDW Coefficient of Variation 13.9 % (11.5-14.5); RDW Standard Deviation 44.9 fL (36.4-46.3); Red Blood Count 5.04 M/uL (4.2-5.4); White Blood Count 10.83 K/uL (4.8-10.8)
[2019-11-24 06:55] LABS: Calcium 9.6 mg/dl (8.5-10.1); Creatinine Clr Calc Pharmacy 35.7 ml/min; Est GFR (African American) 85.1; Est GFR (Non-African American) 73.4
[2019-11-24] MEDS ORDERED: POTASSIUM CHLORIDE 20 MEQ/15 ML UDC PO STA (07:19)
[2019-11-24] MEDS: POTASSIUM CHLORIDE / WTR 10 MEQ/100 ML PLCT IV SCH ×2 (08:16→09:17)
--- NOTE | 2019-11-24 08:17 | Hospitalist Progress Note ---
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 reviewed home medications as brought in by daughter. expressed concern that for when patient is discharged from hospital that she should cut back her home usage of 30 mg morphine tablets from twice a day to half the total daily dose to minimize risk of future bowel obstruction -she reports bowel movement earlier today prior to admission but then had abdominal pain but then had vomiting. Now her abdomen discomfort improved but she remains tachycardic and hypertensive -CT abdomen: are consistent with a high-grade small bowel obstruction. A transition point is suggested in the right lower quadrant and this is likely on the basis of adhesions. -Emergency room provider contacted general surgery consult and was able to place NG tube CT abdomen also noting "Question asymmetric left-sided bladder wall thickening at the base of the bladder. This is pathology indeterminant, and follow-up with urology is recommended." initially ordered mercado but patient is voiding, UA with no bacteria on 11/21/2019, discussed with patient and her family about outpatient urology follow up in regards to admission CT findings of left sided bladder wall thickening, mecrado in place -KUB on 11/22/2019: Distal tip of enteric tube projects over the left midabdomen expected location of the mid gastric body. There is decreased small bowel dilation now measuring up to 2.4 cm, previously 3.4 cm patient reports she is passing gas, no bowel movements yet, there is now less output from the NG tube. -11/23/2019: patient pulled her NG tube overnight but reported bowel movement overnight. repeat KUB on 11/23/2019 showing evidence of SBO but clinically is improved and advanced to clear liquid diet. mercado removed -11/24/2019: Patient eating the full liquid diet. She reports still with bowel movements which she made on the bed previously. no abdomen pain. no vomiting. no severe back pain or shoulder pain despite being off long acting oral morphine on this admission. no chest pain. no palpitations. currently remains on telemetry but no clinical signs opioid withdrawal. can consider advance to solid food later if continues to have clinical improvements with bowel movements Hypertensive Urgency Tachycardia -Heart rate above 110 bpm and systolic blood pressure 200 on presentation, likely from abdominal discomfort, ordered labetalol 10 mg IV x 1 when in ER -admitted to PCU telemetry, initially was on IV beta dipti and IV Enalaprilat q12 hours -transition from IV blood pressure medication to oral lisinopril 2.5 mg daily by mouth and amlodipine 10 mg daily by mouth starting on 11/23/2019 -continue amlodipine 10 mg daily, increase lisinopril total daily dosing to 5 mg daily Leukocytosis -admission WBC 18,000 unclear whether there is infection or from dehydration -continue place on D5 1/2 normal saline at 60 cc/hr -UA from 11/21/2019 with no bacteria, WBC downtrend to 13,000 by 11/22/2019 and admission blood cultures so far no growth to date, stopped the empiric ceftriaxone and flagyl -WBC on on 11/23/2019 and 11/24/2019 around 10,000 but no feves Hypokalemia, Hypophosphatemia from GI losses from NG tube suction -had been given electrolyte supplements of potassium / phosphorous on this admission primarily to replace electrolyte losses from previous NG tube -serum potassium still low as 3 as of 11/24/2019 and potassium supplements given Chronic respiratory failure with hypoxia -on home oxygen -recommend to titrate oxygen supplementation to 92% O2 saturation when possible in context of COPD and emphysema unless patient is in respiratory distress History of Lung cancer in the past -in remission as per patient and her daughter Thrombocytosis, 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 She reports still with bowel movements which she made on the bed previously. no abdomen pain. no vomiting. no severe back pain or shoulder pain despite being off long acting oral morphine on this admission. no chest pain. no palpitations. currently remains on telemetry but no clinical signs opioid withdrawal. Review of Systems Review of Systems: All systems reviewed & are unremarkable except as noted in Subjective Physical Exam Constitutional: + thin Eyes: PERRL, conjunctivae normal, anicteric sclerae EOM intact bilaterally ENMT: external ear and nose normal, oropharynx normal (has NG tube suctioning dark bilious fluid) Neck: trachea midline, no thyromegaly normal visual inspection Respiratory: normal respiratory effort, lungs clear to auscultation (nasal cannula oxygen) Cardiovascular: Rate/Rhythm: regular rate and regular rhythm Gastrointestinal (Abdomen): Percussion/Palpation: abdomen soft Musculoskeletal: Head/Neck/Chest: normocephalic and head atraumatic Neurologic: PERRL, EOMI, accommodation nl, no face palsy, no dysarthria moves all extremities Psychiatric: A+Ox3, euthymic affect Results & Data Results & Data ([facility] [place]) Vital Signs (Past 12 Hours) Vital Signs Temp Pulse Pulse Resp BP Pulse Ox 11/24/19 07:59 91 H 11/24/19 07:51 36.5 C 96 H 17 174/109 H 100 11/24/19 03:32 37.1 C 84 20 159/97 H 99 11/23/19 23:33 36.8 C 78 18 146/84 H 97
[2019-11-24] MEDS: PANTOprazole 40 MG in SYRINGE 0 ML IV SCH ×2 (08:21→20:18)
[2019-11-24] MEDS: AMLODIPINE BESYLATE 5 MG TAB PO SCH (08:21)
[2019-11-24] MEDS: FLUTICASONE/VILANTEROL 100/25MCG 14 PUFFS/INHALER INH SCH (08:22)
[2019-11-24] MEDS: SENNOSIDES 8.8 MG/5 ML UDC PO SCH ×2 (08:22→20:18)
--- NOTE | 2019-11-24 09:15 | Surgery Progress Note ---
Date of Service November 24, 2019 Assessment & Plan (1) SBO (small bowel obstruction): Patient here with SBO NGT out yesterday and she started on liquid diet, tolerated well She is having + bowel movements Okay from our standpoint to start a regular diet, hopefully this will help solidify her BM's We will sign off, may call with any questions/concerns as above. clinically doing ok now with bowel fx and tolerating full liquids. abd: soft. nd/nt. please call us if needed. Subjective Patient is doing well. Denies abdominal pain, n/v. Per nursing and patient she is having multiple bowel movements. Physical Exam Physical Exam: awake Results & Data Vital Signs (Past 12 Hours) Vital Signs Temp Pulse Pulse Resp BP Pulse Ox 11/24/19 07:59 91 H 11/24/19 07:51 36.5 C 96 H 17 174/109 H 100 11/24/19 03:32 37.1 C 84 20 159/97 H 99 11/23/19 23:33 36.8 C 78 18 146/84 H 97 PG Care Time/CCT Total # of Minutes Spent Total Time Spent with Patient: Total time spent is greater than 50% in coordination of care (as documented) at patient's floor/unit and/or counseling patient: Coding Level of Care Code 54999 Subseq Hosp Care Lvl 2 Diagnoses SBO (small bowel obstruction) K56.609
[2019-11-24 14:55] LABS: Calcium 9.9 mg/dl (8.5-10.1); Creatinine Clr Calc Pharmacy 24.1 ml/min; Est GFR (Non-African American) 45.7; Phosphorus 1.6 mg/dl (2.5-4.9); Potassium 4.1 mmol/L (3.5-5.1)
[2019-11-24] MEDS ORDERED: SODIUM PHOSPHATE 3 MMOL/1 ML INFUSION IV STA (15:22)
[2019-11-24] MEDS ORDERED: ACETAMINOPHEN 325 MG TAB PO PRN (15:23)
[2019-11-24] MEDS ORDERED: SODIUM PHOSPHATE 24 MMOL in SODIUM CHLORIDE 0.9% 500 ML IV ONE (15:45)
[2019-11-24] MEDS: POT PHOSPHATE MONOBASIC W/ SOD TAB PO SCH ×2 (17:53→20:18)
[2019-11-25 07:37] LABS: Basophils # (auto) 0.01 K/uL (0-0.2); Basophils % (auto) 0.1 %; Eosinophils # (auto) 0.26 K/uL (0-0.5); Hematocrit (blood only) 43.7 % (37-47); Hemoglobin 15.2 g/dL (12.0-16.0); Immature Granulocytes # (auto) 0.04 K/uL (0.00-0.02); Immature Granulocytes % (auto) 0.3 %; Lymphocytes # (auto) 2.66 K/uL (1.2-3.4); Lymphocytes % (auto) 20.7 %; Mean Corpuscular Hemoglobin 30.3 pg (25-34); Mean Corpuscular Hgb Conc 34.8 g/dL (32-36); Mean Corpuscular Volume 87.1 fL (80-100); Mean Platelet Volume 10.5 fL (7.4-10.4); Monocytes # (auto) 1.17 K/uL (0.11-0.59); Monocytes % (auto) 9.1 %; Neutrophils % (auto) 67.8 %; Platelet Count 543 K/uL (130-400); RDW Standard Deviation 44.7 fL (36.4-46.3); Red Blood Count 5.02 M/uL (4.2-5.4); White Blood Count 12.84 K/uL (4.8-10.8)
[2019-11-25] MEDS: PANTOprazole 40 MG in SYRINGE 0 ML IV SCH (08:15)
[2019-11-25] MEDS: lisinopriL 5 MG TAB PO SCH (08:15)
[2019-11-25] MEDS: AMLODIPINE BESYLATE 5 MG TAB PO SCH (08:15)
[2019-11-25] MEDS: POT PHOSPHATE MONOBASIC W/ SOD TAB PO SCH ×4 (08:15→20:53)
[2019-11-25 08:16] LABS: Albumin Globulin Ratio 0.9 (0.9-2); Albumin Level 3.3 gm/dl (3.4-5.0); Bilirubin,Total 0.7 mg/dl (0.2-1); Calcium 9.7 mg/dl (8.5-10.1); Est GFR (African American) 61.3; Est GFR (Non-African American) 52.9; Globulin 3.6 gm/dl (2.5-4.0); Magnesium 1.2 mg/dl (1.8-2.4); Phosphorus 2.8 mg/dl (2.5-4.9); Potassium 3.3 mmol/L (3.5-5.1); Total Protein 6.9 gm/dl (6.4-8.2)
[2019-11-25] MEDS: SENNOSIDES 8.8 MG/5 ML UDC PO SCH ×2 (08:16→20:52)
[2019-11-25] MEDS: FLUTICASONE/VILANTEROL 100/25MCG 14 PUFFS/INHALER INH SCH (08:16)
[2019-11-25] MEDS ORDERED: POTASSIUM CHLORIDE 20 MEQ TABCR PO ONE (09:00)
[2019-11-25] MEDS: MAGNESIUM SULFATE / D5W 1 GM/100 ML BAG IV SCH ×2 (09:49→11:38)
--- NOTE | 2019-11-25 19:02 | Hospitalist Progress Note ---
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 reviewed home medications as brought in by daughter. expressed concern that for when patient is discharged from hospital that she should cut back her home usage of 30 mg morphine tablets from twice a day to half the total daily dose to minimize risk of future bowel obstruction -she reports bowel movement earlier today prior to admission but then had abdominal pain but then had vomiting. Now her abdomen discomfort improved but she remains tachycardic and hypertensive -CT abdomen: are consistent with a high-grade small bowel obstruction. A transition point is suggested in the right lower quadrant and this is likely on the basis of adhesions. -Emergency room provider contacted general surgery consult and was able to place NG tube CT abdomen also noting "Question asymmetric left-sided bladder wall thickening at the base of the bladder. This is pathology indeterminant, and follow-up with urology is recommended." initially ordered mercado but patient is voiding, UA with no bacteria on 11/21/2019, discussed with patient and her family about outpatient urology follow up in regards to admission CT findings of left sided bladder wall thickening, mercado in place -KUB on 11/22/2019: Distal tip of enteric tube projects over the left midabdomen expected location of the mid gastric body. There is decreased small bowel dilation now measuring up to 2.4 cm, previously 3.4 cm patient reports she is passing gas, no bowel movements yet, there is now less output from the NG tube. -11/23/2019: patient pulled her NG tube overnight but reported bowel movement overnight. repeat KUB on 11/23/2019 showing evidence of SBO but clinically is improved and advanced to clear liquid diet. mercado removed -11/24/2019: Patient eating the full liquid diet. She reports still with bowel movements which she made on the bed previously. no abdomen pain. no vomiting. no severe back pain or shoulder pain despite being off long acting oral morphine on this admission. no chest pain. no palpitations. currently remains on telemetry but no clinical signs opioid withdrawal. can consider advance to solid food later if continues to have clinical improvements with bowel movements 11/25/19 Tolerated diet and had a BM yesterday and today Resolved Hypertensive Urgency Tachycardia -Heart rate above 110 bpm and systolic blood pressure 200 on presentation, likely from abdominal discomfort, ordered labetalol 10 mg IV x 1 when in ER -admitted to PCU telemetry, initially was on IV beta dipti and IV Enalaprilat q12 hours -transition from IV blood pressure medication to oral lisinopril 2.5 mg daily by mouth and amlodipine 10 mg daily by mouth starting on 11/23/2019 -continue amlodipine 10 mg daily, increase lisinopril total daily dosing to 5 mg daily Leukocytosis -admission WBC 18,000 unclear whether there is infection or from dehydration -continue place on D5 1/2 normal saline at 60 cc/hr -UA from 11/21/2019 with no bacteria, WBC downtrend to 13,000 by 11/22/2019 and admission blood cultures so far no growth to date, stopped the empiric ceftriaxone and flagyl -WBC 12K today Electrolytes imbalance Potassium 3.3 and Mg 1.2 today Mg and K replaced continue monitor electrolytes Chronic respiratory failure with hypoxia -on home oxygen -recommend to titrate oxygen supplementation to 92% O2 saturation when possible in context of COPD and emphysema unless patient is in respiratory distress History of Lung cancer in the past -in remission as per patient and her daughter Thrombocytosis, 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 -resume home dose aspirin 81 mg daily solitary kidney, 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 Code Status: DNR/DNI Disposition Discharge home tomorrow Admission and Anticipated Discharge Date Admission Date: November 20, 2019 Subjective Pt was seen and examined Sitting in chair with no distress Pt said that she feels fine She said that she had a BM today Tolerated her diet Pt is very anxious to go but Daughter would like her to stay for the night Denies any chest pain, palpitation, dizziness and SOB Physical Exam Physical Exam: General- No acute distress Head- atraumatic Eyes- PERRL, EOMI, ENT- oropharynx clear Neck- supple, no JVD Lungs- clear to auscultation Heart- regular rhythm; no murmur Abdomen- normal bowel sounds, soft, nontender Extremities- no calf tenderness Neuro- alert, oriented x 3; PERRL, EOMI; no facial palsy; no dysarthria Skin- warm & dry Results & Data Results & Data ([facility]) Vital Signs (Past 12 Hours) Vital Signs Temp Pulse Pulse Resp BP Pulse Ox 11/25/19 16:00 81 11/25/19 15:48 36.6 C 87 20 120/80 99 11/25/19 11:39 36.4 C L 99 H 18 108/73 97 11/25/19 08:10 111 H 11/25/19 07:43 36.4 C L 99 H 18 131/88 100
[2019-11-25] MEDS: PANTOprazole 40 MG TAB PO SCH (20:54)
[2019-11-26] MEDS: LORazepam 0.25 MG/0.5 ML VIAL IV PRN (01:22)
[2019-11-26 07:21] LABS: Hematocrit (blood only) 39.6 % (37-47); Hemoglobin 13.9 g/dL (12.0-16.0); Mean Corpuscular Hemoglobin 30.6 pg (25-34); Mean Corpuscular Hgb Conc 35.1 g/dL (32-36); Mean Corpuscular Volume 87.2 fL (80-100); Platelet Count 499 K/uL (130-400); RDW Standard Deviation 44.5 fL (36.4-46.3); Red Blood Count 4.54 M/uL (4.2-5.4); White Blood Count 11.77 K/uL (4.8-10.8)
[2019-11-26 07:55] LABS: BUN Creatinine Ratio 12.7 (10-20); Calcium 9.3 mg/dl (8.5-10.1); Creatinine Clr Calc Pharmacy 26.1 ml/min; Est GFR (African American) 60.6; Est GFR (Non-African American) 52.3; Magnesium 1.6 mg/dl (1.8-2.4); Potassium 3.7 mmol/L (3.5-5.1)
[2019-11-26] MEDS: AMLODIPINE BESYLATE 5 MG TAB PO SCH (08:49)
[2019-11-26] MEDS: PANTOprazole 40 MG TAB PO SCH (08:49)
[2019-11-26] MEDS: POT PHOSPHATE MONOBASIC W/ SOD TAB PO SCH ×2 (08:49→13:22)
[2019-11-26] MEDS: lisinopriL 5 MG TAB PO SCH (08:49)
[2019-11-26] MEDS: FLUTICASONE/VILANTEROL 100/25MCG 14 PUFFS/INHALER INH SCH (08:49)
[2019-11-26] MEDS: SENNOSIDES 8.8 MG/5 ML UDC PO SCH (08:49)
[2019-11-26] MEDS ORDERED: MAGNESIUM SULFATE / D5W 1 GM/100 ML BAG IV ONE (10:30)
[2019-11-26 10:57] VITALS: BP 133/85; PULSE 92; TEMP 97.7; O2SAT 100
--- NOTE | 2019-11-26 13:10 | Hospitalist Progress Note ---
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 reviewed home medications as brought in by daughter. expressed concern that for when patient is discharged from hospital that she should cut back her home usage of 30 mg morphine tablets from twice a day to half the total daily dose to minimize risk of future bowel obstruction -she reports bowel movement earlier today prior to admission but then had abdominal pain but then had vomiting. Now her abdomen discomfort improved but she remains tachycardic and hypertensive -CT abdomen: are consistent with a high-grade small bowel obstruction. A transition point is suggested in the right lower quadrant and this is likely on the basis of adhesions. -Emergency room provider contacted general surgery consult and was able to place NG tube CT abdomen also noting "Question asymmetric left-sided bladder wall thickening at the base of the bladder. This is pathology indeterminant, and follow-up with urology is recommended." initially ordered mercado but patient is voiding, UA with no bacteria on 11/21/2019, discussed with patient and her family about outpatient urology follow up in regards to admission CT findings of left sided bladder wall thickening, mercado in place -KUB on 11/22/2019: Distal tip of enteric tube projects over the left midabdomen expected location of the mid gastric body. There is decreased small bowel dilation now measuring up to 2.4 cm, previously 3.4 cm patient reports she is passing gas, no bowel movements yet, there is now less output from the NG tube. -11/23/2019: patient pulled her NG tube overnight but reported bowel movement overnight. repeat KUB on 11/23/2019 showing evidence of SBO but clinically is improved and advanced to clear liquid diet. mercado removed -11/24/2019: Patient eating the full liquid diet. She reports still with bowel movements which she made on the bed previously. no abdomen pain. no vomiting. no severe back pain or shoulder pain despite being off long acting oral morphine on this admission. no chest pain. no palpitations. currently remains on telemetry but no clinical signs opioid withdrawal. can consider advance to solid food later if continues to have clinical improvements with bowel movements 11/25/19 Tolerated diet and had a BM yesterday and today Resolved Gram positive Bacilli Blood cx collected on 11/19 was positive on 11/25 IV abx discontinue by the previous hospitalist team since there was no sign of infection WBC has been stable and afebrile called lab to verify if positive blood cx is due to contamination Waiting for final cx result tomorrow to see if contaminates Pt does not want to stay in the hospital and insisted to be discharged Discussed with daughter at bedside who agreed with her mother (pt ) decision to discharge today Daughter does not want to start on abx yet until we can confirm positive blood cx not due to contamination Discussed with patient and family if the positive blood cx is from a true infection that can lead to sepsis and Repeat blood cx today and pt will follow with her PCP on Saturday Advised pt if develops any fever, weakness, tired to come back to the ER Hypertensive Urgency Tachycardia -Heart rate above 110 bpm and systolic blood pressure 200 on presentation, likely from abdominal discomfort, ordered labetalol 10 mg IV x 1 when in ER -admitted to PCU telemetry, initially was on IV beta dipti and IV Enalaprilat q12 hours -transition from IV blood pressure medication to oral lisinopril 2.5 mg daily by mouth and amlodipine 10 mg daily by mouth starting on 11/23/2019 -continue amlodipine 10 mg daily, and lisinopril to 5 mg daily started during the hospital course Continue monitor BP Leukocytosis -admission WBC 18,000 unclear whether there is infection or from dehydration -continue place on D5 1/2 normal saline at 60 cc/hr -UA from 11/21/2019 with no bacteria, WBC downtrend to 13,000 by 11/22/2019 and admission blood cultures had no growth until 11/25, Empiric ceftriaxone and flagyl were discontinued by previous hospitalist since cx was negative Blood cx on 11/19 grew gram positive bacilli WBC trending down to 11K Electrolytes imbalance Potassium 3.7 and Mg 1.6 today Mg replaced continue monitor electrolytes Chronic respiratory failure with hypoxia -on home oxygen -recommend to titrate oxygen supplementation to 92% O2 saturation when possible in context of COPD and emphysema unless patient is in respiratory distress History of Lung cancer in the past -in remission as per patient and her daughter Thrombocytosis, 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 -resume home dose aspirin 81 mg daily solitary kidney, 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 Code Status: DNR/DNI Disposition refused to stay in the hospital today Discharge home today Admission and Anticipated Discharge Date Admission Date: November 20, 2019 Subjective Pt was seen and examined Sitting in chair with no distress with daughter at bedside Pt said that she feels fine She is very anxious to go home today Discussed with patient and daughter about blood cx result Pt does not want to stay to wait for the final blood cx result Denies any chest pain, palpitation, dizziness and SOB Physical Exam Physical Exam: General- No acute distress Head- atraumatic Eyes- PERRL, EOMI, ENT- oropharynx clear Neck- supple, no JVD Lungs- clear to auscultation Heart- regular rhythm; no murmur Abdomen- normal bowel sounds, soft, nontender Extremities- no calf tenderness Neuro- alert, oriented x 3; PERRL, EOMI; no facial palsy; no dysarthria Skin- warm & dry Results & Data Results & Data ([facility]) Vital Signs (Past 12 Hours) Vital Signs Temp Pulse Pulse Resp BP BP Pulse Ox 11/26/19 10:54 36.5 C 92 H 18 133/85 100 11/26/19 08:20 93 H 11/26/19 07:05 36.7 C 78 18 159/88 H 99 11/26/19 04:37 36.8 C 84 16 162/63 H 97
--- NOTE | 2019-11-27 09:36 | Discharge Summary ---
Date of Service November 26, 2019 Admission HPI Per Admitting Provider This is a patient with Chronic Back Pain from Spinal stenosis of lumbar region, Chronic narcotic/opioid pain medication use. she reports bowel movement earlier today prior to admission but then had abdominal pain but then had vomiting. patient has usp use of morphine and takes morphine at least 30 mg once a day every day for years.Now her abdomen discomfort improved but she remains tachycardic and hypertensive CT abdomen: are consistent with a high-grade small bowel obstruction. A transition point is suggested in the right lower quadrant and this is likely on the basis of adhesions. Emergency room provider contacted general surgery consult. Emergency provider have not been able to place NG tube successfully at this time but will re-attempt. patient denies fevers but has elevated WBC of 18,000. empirically given IV ceftriaxone and IV metronidazole by ED doctor. No acute shortness of breath, she is on chronic oxygen because of COPD/emphysema no chest pain, no palpitations, no dizziness. no problems with urination, no headache Admission Exam Per Admitting Provider Constitutional: + thin Eyes: PERRL, conjunctivae normal, anicteric sclerae EOM intact bilaterally ENMT: external ear and nose normal, oropharynx normal Neck: trachea midline, no thyromegaly normal visual inspection Respiratory: normal respiratory effort, lungs clear to auscultation Cardiovascular: + tachycardic Gastrointestinal: Percussion/Palpation: abdomen soft Musculoskeletal: Head/Neck/Chest: normocephalic and head atraumatic Neurologic: PERRL, EOMI, accommodation nl, no face palsy, no dysarthria moves all extremities Psychiatric: A+Ox3, euthymic affect Principal Diagnosis SBO (small bowel obstruction) Chronic Back Pain from Spinal stenosis of lumbar region, Chronic narcotic/opioid pain medication use Hypertensive Urgency and Tachycardia, on admission Leukocytosis Chronic respiratory failure with hypoxia Thrombocytosis, chronic hypokalemia hypophosphatemia Bladder abnormality Discharge Exam General- No acute distress Head- atraumatic Eyes- PERRL, EOMI, ENT- oropharynx clear Neck- supple, no JVD Lungs- clear to auscultation Heart- regular rhythm; no murmur Abdomen- normal bowel sounds, soft, nontender Extremities- no calf tenderness Neuro- alert, oriented x 3; PERRL, EOMI; no facial palsy; no dysarthria Skin- warm & dry Discharge Data Allergies Allergy/AdvReac Type Severity Reaction Status Date / Time Penicillins Allergy Unknown hives Unverified 10/27/19 09:19 procaine Allergy Unknown SWELLING Verified 10/27/19 09:19 codeine AdvReac Unknown GI UPSET Unverified 10/27/19 09:19 Consultations 11/20/19 18:12 Consult General Surgery Stat 11/20/19 18:27 ED Decision to Admit Stat 11/20/19 18:55 Consult Case Management - Discharge Planning Routine Ordered Studies 11/20/19 15:49 CT abd pelvis IV con only Stat CT SCAN OF THE ABDOMEN AND PELVIS WITH IV CONTRAST CLINICAL HISTORY: Vomiting. COMPARISON STUDY: Abdominal CT dated 12/24/2017. TECHNIQUE: Following the IV administration of 93 cc of Optiray 320, CT scan of the abdomen and pelvis is performed from the lung bases to the proximal femora. Images are reviewed in the axial, sagittal, and coronal planes. IV contrast was administered without complication. A dose lowering technique was utilized adhering to the principles of ALARA. CT DOSE: 230.51 mGy.cm FINDINGS: Lung bases: The heart is normal in size and without pericardial effusion. Advanced emphysematous change is noted at the lung bases. There is bibasilar scarring/atelectasis. No airspace consolidation or pleural effusion is identified. Liver: The contrast-enhanced liver is normal in size, contour, and attenuation. There is moderate intrahepatic biliary ductal dilatation. The hepatic veins and portal veins are patent. Gallbladder: Surgically absent noting clips in the gallbladder fossa. Spleen: The spleen is not identified and presumed surgically absent. Pancreas: Atrophic and grossly unremarkable. Adrenal glands: Unremarkable. Kidneys: The right kidney is not identified and presumed surgically absent. The contrast-enhanced left kidney demonstrates cortical atrophy and is without hydronephrosis. The left kidney enhances homogeneously. Abdominal vasculature: The abdominal aorta is normal in course and caliber noting advanced atherosclerotic calcification. Stomach and bowel: There is a small hiatal hernia. The stomach is distended and fluid-filled. The small bowel loops are distended and fluid-filled measuring up to 3.3 cm in diameter. There are numerous air-fluid levels. A transition point is suggested in the right lower quadrant on image #205, and the appearance is consistent with a small bowel obstruction. The distal small bowel and colon are decompressed. There is no pneumatosis intestinalis or portal venous gas. The appendix is not identified and reported surgically absent. Peritoneum: There is a small volume of abdominopelvic ascites. No intraperitoneal free air is seen. Lymphadenopathy: None. Pelvic viscera: Question asymmetric bladder wall thickening at the left base of the bladder seen on image #320. The uterus is surgically absent. No adnexal lesion is seen. Skeletal structures: The skeletal structures are osteopenic. There is advanced lumbosacral spondylosis and scoliosis. Advanced arthritic change is seen in the hips. There are bilateral hip joint effusions. No lytic or blastic lesions are seen. Soft tissues: The patient is cachectic. IMPRESSION: 1. Findings are consistent with a high-grade small bowel obstruction. A transition point is suggested in the right lower quadrant and this is likely on the basis of adhesions. 2. There is no intraperitoneal free air. No focally thick walled bowel loops are identified, and there is no pneumatosis intestinalis or portal venous gas. 3. Small volume of abdominopelvic ascites. 4. Advanced emphysema. 5. Question asymmetric left-sided bladder wall thickening at the base of the bladder. This is pathology indeterminant, and follow-up with urology is recommended. 6. The right kidney and spleen are presumed surgically absent. 7. Additional findings as above. ACT 112: Positive. There are findings on this exam that require communication between the performing entity and the patient following Patient Test Result Information Act ([place] Act 112) guidelines. Electronically signed by: Lenny Villa M.D. 11/20/2019 4:57 PM Dictated: 11/20/191646 Transcribed: 11/20/191646 XR chest 1V portable HISTORY: 79 years-old Female pain acute atypical chest pain COMPARISON: CT abdomen and pelvis of same day, chest radiograph 05/28/2019 TECHNIQUE: Portable AP view of the chest FINDINGS: Patient is slightly rotated. Cardiomegaly. Calcified plaque of the thoracic aortic arch. Emphysema with chronic interstitial coarsening. There is no pneumothorax, pleural effusion, overt pulmonary edema or airspace consolidation typical for pneumonia. Mild retrocardiac opacities suggest atelectasis. Degenerative changes of the shoulders and spine. Thoracolumbar sigmoidal scoliosis. Cholecystectomy. IMPRESSION: 1. Cardiomegaly without acute process. 2. Emphysema. ACT 112: Negative or not required by law. The above report was generated using voice recognition software. It may contain grammatical, syntax or spelling errors. Electronically signed by: Jeffery Og M.D. 11/20/2019 4:59 PM Dictated: 11/20/191655 Transcribed: 11/20/191655 KUB CLINICAL HISTORY: Enteric tube placement. FINDINGS: 2 AP, portable, supine radiographs of the lower chest and upper abdomen are correlated with abdominal CT performed the same day 11/20/2019. An enteric tube has been placed. The tip projects below the diaphragm over the mid stomach. There is evidence of persistent bowel obstruction. Cholecystectomy clips are noted in the right upper quadrant. There is atherosclerotic calcification of the thoracic aorta. Emphysematous change and bibasilar scarring/atelectasis are similar to previous. Degenerative change and scoliosis is noted in the spine. IMPRESSION: An enteric tube has been placed as above. Electronically signed by: Lenny Villa M.D. 11/20/2019 8:08 PM Dictated: 11/20/192005 Transcribed: 11/20/192005 KUB HISTORY: Small bowel obstruction. sbo COMPARISON: KUB and CT 11/20/2019 FINDINGS: Distal tip enteric tube projects over the expected location of the mid gastric lumen. Persistent dilated loops of small bowel measure up to 3.4 cm compatible with ongoing small bowel obstruction. This appears generally stable from comparison. Cholecystectomy. Contrast noted within the urinary bladder lumen. Vascular calcifications. Sigmoidal thoracolumbar scoliosis. Degenerative changes of the spine, pelvis and hips. No renal calculi. No ureteral calculi. No pneumoperitoneum or pneumatosis. No fracture. IMPRESSION: 1. Distal tip of enteric tube projects within the mid gastric lumen. 2. Persistent small bowel obstruction. No pneumoperitoneum. 3. Cholecystectomy. ACT 112: Negative or not required by law. The above report was generated using voice recognition software. It may contain grammatical, syntax or spelling errors. Electronically signed by: Jeffery Og M.D. 11/21/2019 7:43 AM Dictated: 11/21/19740 Transcribed: 11/21/19740 KUB HISTORY: Small bowel obstruction sbo COMPARISON: KUB 11/21/2019 FINDINGS: Distal tip of enteric tube projects over the left midabdomen expected location of the mid gastric body. There is decreased small bowel dilation now measuring up to 2.4 cm, previously 3.4 cm. Surgical clips project over the central abdomen. Arterial calcifications. Cholecystectomy. No renal calculi. No ureteral calculi. No pneumoperitoneum or pneumatosis. Scoliosis of the lumbar spine with multilevel degenerative changes. Osteoarthritis of the hips. No fracture. IMPRESSION: 1. Distal tip of enteric tube projects over the expected location of the mid gastric lumen. 2. Decreased small bowel distention suggests resolving small bowel obstruction. ACT 112: Negative or not required by law. The above report was generated using voice recognition software. It may contain grammatical, syntax or spelling errors. Electronically signed by: Jeffery Og M.D. 11/22/2019 8:26 AM Dictated: 11/22/19823 Transcribed: 11/22/19823 KUB CLINICAL HISTORY: follow sbo, patient reported bowel movement yesterday. COMPARISON STUDY: KUB November 22, 2019. FINDINGS: Nasogastric tube has been removed. A few prominent loops of gas-filled small bowel are noted. Appearance is similar to prior exam. There are scattered colonic and rectal gas. Scoliosis of the thoracolumbar spine is incidentally noted as well as osteoarthritis of both hips. There are upper abdominal surgical clips. IMPRESSION: No significant change in a few prominent loops of gas-filled small bowel. Significant improvement since exam of November 21, 2019. The findings suggest an improving small bowel obstruction. ACT 112: Negative or not required by law. Electronically signed by: Yehuda Miller M.D. 11/23/2019 8:32 AM Dictated: 11/23/19829 Transcribed: 11/23/19829 Hospital Course (1) SBO (small bowel obstruction): Chronic Back Pain from Spinal stenosis of lumbar region, Chronic narcotic/opioid pain medication use Bladder abnormality -patient has usp use of morphine and takes morphine at least 30 mg once a day every day for years. reviewed home medications as brought in by daughter. expressed concern that for when patient is discharged from hospital that she should cut back her home usage of 30 mg morphine tablets from twice a day to half the total daily dose to minimize risk of future bowel obstruction -she reports bowel movement earlier today prior to admission but then had abdominal pain but then had vomiting. Now her abdomen discomfort improved but she remains tachycardic and hypertensive -CT abdomen: are consistent with a high-grade small bowel obstruction. A transition point is suggested in the right lower quadrant and this is likely on the basis of adhesions. -Emergency room provider contacted general surgery consult and was able to place NG tube CT abdomen also noting "Question asymmetric left-sided bladder wall thickening at the base of the bladder. This is pathology indeterminant, and follow-up with urology is recommended." initially ordered mercado but patient is voiding, UA with no bacteria on 11/21/2019, discussed with patient and her family about outpatient urology follow up in regards to admission CT findings of left sided bladder wall thickening, mercado in place -KUB on 11/22/2019: Distal tip of enteric tube projects over the left midabdomen expected location of the mid gastric body. There is decreased small bowel dilation now measuring up to 2.4 cm, previously 3.4 cm patient reports she is passing gas, no bowel movements yet, there is now less output from the NG tube. -11/23/2019: patient pulled her NG tube overnight but reported bowel movement overnight. repeat KUB on 11/23/2019 showing evidence of SBO but clinically is improved and advanced to clear liquid diet. mercado removed -11/24/2019: Patient eating the full liquid diet. She reports still with bowel movements which she made on the bed previously. no abdomen pain. no vomiting. no severe back pain or shoulder pain despite being off long acting oral morphine on this admission. no chest pain. no palpitations. currently remains on telemetry but no clinical signs opioid withdrawal. can consider advance to solid food later if continues to have clinical improvements with bowel movements 11/25/19 Tolerated diet and had a BM yesterday and today Resolved Gram positive Bacilli Blood cx collected on 11/19 was positive on 11/25 IV abx discontinue by the previous hospitalist team since there was no sign of infection WBC has been stable and afebrile called lab to verify if positive blood cx is due to contamination Waiting for final cx result tomorrow to see if contaminates Pt does not want to stay in the hospital and insisted to be discharged Discussed with daughter at bedside who agreed with her mother (pt ) decision to discharge today Daughter does not want to start on abx yet until we can confirm positive blood cx not due to contamination Discussed with patient and family if the positive blood cx is from a true infection that can lead to sepsis and Repeat blood cx today and pt will follow with her PCP on Saturday Advised pt if develops any fever, weakness, tired to come back to the ER Hypertensive Urgency Tachycardia -Heart rate above 110 bpm and systolic blood pressure 200 on presentation, likely from abdominal discomfort, ordered labetalol 10 mg IV x 1 when in ER -admitted to PCU telemetry, initially was on IV beta dipti and IV Enalaprilat q12 hours -transition from IV blood pressure medication to oral lisinopril 2.5 mg daily by mouth and amlodipine 10 mg daily by mouth starting on 11/23/2019 -continue amlodipine 10 mg daily, and lisinopril to 5 mg daily started during the hospital course Continue monitor BP Leukocytosis -admission WBC 18,000 unclear whether there is infection or from dehydration -continue place on D5 1/2 normal saline at 60 cc/hr -UA from 11/21/2019 with no bacteria, WBC downtrend to 13,000 by 11/22/2019 and admission blood cultures had no growth until 11/25, Empiric ceftriaxone and flagyl were discontinued by previous hospitalist since cx was negative Blood cx on 11/19 grew gram positive bacilli WBC trending down to 11K Electrolytes imbalance Potassium 3.7 and Mg 1.6 today Mg replaced continue monitor electrolytes Chronic respiratory failure with hypoxia -on home oxygen -recommend to titrate oxygen supplementation to 92% O2 saturation when possible in context of COPD and emphysema unless patient is in respiratory distress History of Lung cancer in the past -in remission as per patient and her daughter Thrombocytosis, 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 -resume home dose aspirin 81 mg daily solitary kidney, 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 Code Status: DNR/DNI Disposition refused to stay in the hospital today Discharge home today Total Time Total Time Spent Total Time Spent (In Minutes): 35 minutes Total Time Includes: Examination of the Patient, Discharge Planning, Medication Reconciliation, Communication With Other Providers and Other Discharge Plan Discharge Items Patient Disposition: Home - Home Health Services Reason For Visit: SBO, HYPERTENSIVE URGENCY, TACHYCARDIA, LEUKOCYTOS Discharge Diagnosis: SBO (small bowel obstruction) Chronic Back Pain from Spinal stenosis of lumbar region, Chronic narcotic/opioid pain medication use Hypertensive Urgency and Tachycardia, on admission Leukocytosis Chronic respiratory failure with hypoxia Thrombocytosis, chronic hypokalemia hypophosphatemia Bladder abnormality Condition on Discharge: Good Activity: Resume your previous activity Non-emergency contact: Primary Care Provider Call non-emergency contact if: you have any medication questions and your temperature is above 101 Follow-up/Referrals: Ron Ortega MD [Primary Care Provider] - 11/30/19 11:00 am ( 11/30/2019 11:00 AM Provider Steffanie Peralta MD Department General Internal Medicine [facility] ) Diet: Heart Healthy Addtl Attending Provider Instructions: limit the home morphine medication to prevent bowel obstruction in the future CT abdomen also noting "Question asymmetric left-sided bladder wall thickening at the base of the bladder. This is pathology indeterminant, and follow-up with urology is recommended." initially ordered mercado but patient is voiding, UA with no bacteria on 11/21/2019, discussed with patient and her family about outpatient urology follow up in regards to admission CT findings of left sided bladder wall thickening (can get referral from primary care doctor versus [facility] Address: [address] [place] [address], [place], [place] [id number] for clinic appointment) scheduled appointments on [facility] chart 11/23/2019 1:00 PM Provider Vicky Barreto MD Department Endocrinology, [place] (patient will need to re-schedule this appointment as she was in hospital) 11/30/2019 11:00 AM Provider Ron Ortega MD Department General Internal Medicine [facility] Continue physical and occupational therapy Fall precaution Check BMP and Magnesium in 1 week to monitor electrolytes Monitor your blood pressure and bring your blood pressure log at your next appointment with your physician Blood culture positive for gram positive bacilli. Not sure if it is due to contamination. Since you don't want to stay in the hospital to follow up final blood culture result. Please follow up with your physician for repeat blood culture result that was collected on 11/25. If you develop any fever, or become lethargy or weak, please come back to the ER Pending Studies at Discharge: Yes (Blood culture) Stand-Alone Forms: My [employer], Smoking Cessation Medications and DC Order Prescriptions: New amlodipine [Norvasc] 5 mg Tablet 10 mg PO QAM Qty: 30 RF: 0 lisinopril [Zestril] 5 mg Tablet 5 mg PO QAM Qty: 30 RF: 0 Phospha 250 Neutral 250 mg Tablet 1 tab PO QID Qty: 30 RF: 0 sennosides [Senokot] 8.6 mg tablet 8.6 mg PO DAILY Qty: 30 RF: 0 magnesium oxide 400 mg magnesium capsule 400 mg PO DAILY Qty: 30 RF: 0 Continued atorvastatin [Lipitor] 10 mg Tablet 10 mg PO QAM Qty: 0 RF: 0 escitalopram oxalate [Lexapro] 20 mg Tablet 20 mg PO QAM Qty: 0 RF: 0 gabapentin [Neurontin] 600 mg Tablet 600 mg PO BID Qty: 0 RF: 0 glucosamine sulfate 1,000 mg Capsule 2 tabs PO QAM Qty: 0 RF: 0 coenzyme Q10 [Co Q-10] 10 mg Capsule 0 mg PO QAM Qty: 0 RF: 0 aspirin [Aspirin Low Dose] 81 mg Tablet,Delayed Release (Dr/Ec) 81 mg PO QAM RF: 0 oxymetazoline 0.05 % [place],Non-Aerosol 2 spray INTRANASAL Q12H PRN (Reason: Sinus Symptoms) RF: 0 Narcan 4 mg/actuation [place],Non-Aerosol 0 mg INTRANASAL DIRECTED RF: 0 morphine 15 mg tablet 15 mg PO Q12 PRN (Reason: Pain) RF: 0 Trelegy Ellipta 100-62.5-25 mcg blister with device 1 inh INHALATION DAILY RF: 0 omeprazole 20 mg capsule,delayed release(DR/EC) 20 mg PO QAM RF: 0 Discontinued morphine 30 mg tablet 30 mg PO BID RF: 0 Discharge Orders: Discharge Order (Routine); Ordered 11/26/19 Ordered By: Hollis Jain Admission Data Admit Date/Time: 11/20/19 18:55 Attending Provider: Hollis Jain Admit Provider: Krzysztof Kauffman Primary Care Provider: Ron Ortega Other Providers: Nikolas Miranda ; Krzysztof Kauffman ; [facility] Other Interventions: Discharge Summary Assessment (RN) Last Done: 11/26/19 15:16 DC Date/Time DO NOT enter until pt leaves facility: 11/26/19 16:45
== END 2019-11-26 16:45 | disposition home health service (06) | DRG 388 ==
LOC: ED 15:27 → SUATTDRO 18:55 → 2S 18:55

== ENCOUNTER 2021-10-19 15:46 | Inpatient (IN) ==
[2021-10-19] MEDS ORDERED: LACTATED RINGER'S 500 ML IV ONE (16:02)
[2021-10-19] MEDS ORDERED: LORazepam 0.25 MG in SYRINGE 0.125 ML IV STA (16:03)
--- NOTE | 2021-10-19 16:07 | Emergency Department Note ---
Impression & Plan Spasms of the hands or feet, Chronic respiratory failure with hypoxia, on home O2 therapy ED Provider Note Provider: Avery Marte MD DATE OF SERVICE: 10/19/2021 CHIEF COMPLAINT: Contractures/spasms HISTORY OF PRESENT ILLNESS: Patient is a 81-year-old female history of COPD on chronic 2 L of oxygen, CKD, pulmonary hypertension, lumbar spinal stenosis presenting here today via ambulance from her home. Caregiver came this afternoon and the patient woke the report around 2:00 or so. Patient is nonambulatory is not been ambulatory for least a year due to her back issues. Resides in bed. Since awaking at the time the patient's had significant lower extremity contractures as well as contracture of her left hand. Denies issues the right arm. Caregiver reports she was complaining of some dizziness and facial numbness earlier but the patient denies this. She states may be a bit of tingling in her lower extremities. Reports chronic back pain. Denies abdominal pain or chest pain. States her breathing is at baseline. No trauma or falls reported again. Patient states she is occasionally had a little spasm in the past but not like this. Has not had any recent medication changes. Was on Lasix over a month ago but none since then. Does not have significant leg swelling reported. REVIEW OF SYSTEMS: A total of 10 review of systems was obtained and negative except as stated above in the HPI. PAST MEDICAL HISTORY: As noted above MEDICATIONS: No medications with patient and caregiver in room SOCIAL HISTORY: Resides at home with care attendants PHYSICAL EXAM: GENERAL: alert and oriented in no acute distress on stretcher on nasal cannula oxygen Head: normocephalic and atraumatic EYES: No injection, discharge or icterus. PERRL, EOMI. NECK: Trachea midline. Supple. ENT: Mucous membranes pink and moist. LUNGS: Airway patent. No retractions. Breath sounds clear with good air entry bilaterally. HEART: Regular rate and rhythm. No chest wall tenderness ABDOMEN: Soft and non-tender, without guarding or rebound. BACK: No bilateral flank tenderness. SKIN: Acyanotic, warm, dry, without rashes EXTREMITIES: Without swelling or tenderness however remedies are flexed and contracted with inversion of the feet but no evidence of significant swelling or erythema. Able to extend them but some pain with this. Feels gross touch in bilateral lower extremities. Some slight clawhand spasm of the left hand but not of the other left extremity. No significant issue with the right upper extremity noted. NEUROLOGICAL:No aphasia. No facial droop or slurred speech. Tongue midline. EK Beats per minute normal sinus rhythm. No PVC noted. Significant base line artifact appreciated. There is no acute ST segment elevation with a QTC of 438. Poor R wave progression. CONTINUOUS CARDIAC MONITORING: was ordered and showed a heart rate of 70s-80s bpm in NSR Patient's laboratory studies and imaging reviewed. Differential includes Infection, dehydration, metabolic abnormality, hypo/hyperglycemia, electrolyte disturbance, anemia, hypoxia, cardiac sources, intracerebral event, toxicologic, neurologic, as well as other pathologies. IMPRESSION/MEDICAL DECISION MAKING: No swelling noted. No fever or illness otherwise reported states her breathing is stable. Noted significant pulmonary history. History of lumbar stenosis but no history of recent falls. Patient temperature noted be 37.7 unsure if this is related to the heat or possibly represents infectious source. Patient without significant focal deficit low suspicion for CVA at this time given her symptoms. Primarily contractures given small amount of Ativan. CK and electrolytes were checked. Given a small amount of IV fluid here. Given her history of lumbar stenosis and her recent imaging a CT lumbar spine was obtained to look for obvious deformity but this would explain the left upper extremity complaints. Blood work here with borderline leukocytosis although downtrending from previous. No significant anemia. Chest x-ray with emphysema but no other acute process per radiology. CT of the head without acute finding. CT lumbar spine without significant acute pathology. COVID-negative. Chemistries with mild hyperkalemia but not severe no other significant electrolyte on theto explain the cramping. Patient was very fatigued after receiving Ativan which did not seem to improve the contractures much. Discussed with caregiver at bedside who is interfacing with the patient's daughter via phone. Recommend further care here at the hospital given the significant sudden onset of contractures as well as she is somewhat drowsy after the small dose of Ativan here. Still awaiting urine sample to exclude infectious etiology but does not appear septic. DIAGNOSIS: Contractures/spasms, lumbar stenosis DISPOSITION: Hospitalist will evaluate Past Med/Surg History Medical History (Updated 10/19/21 @ 22:41 by Avery Marte M.D.) Adenocarcinoma of lung (10/13/10) "s/p resection, chemo and radiation 10 yrs ago" Bronchitis Chronic pain syndrome (10/13/10) Chronic prescription opiate use CKD (chronic kidney disease), stage III COPD (chronic obstructive pulmonary disease) Depression Gastroesophageal reflux disease (10/13/10) Hyperlipidemia Lumbar spinal stenosis Osteoporosis Pulmonary hypertension Stroke Surgical History H/O splenectomy History of adrenal surgery History of bladder surgery History of hysterectomy History of lung surgery History of tonsillectomy and adenoidectomy Hx of appendectomy S/P cholecystectomy Family History (Updated 10/19/21 @ 20:16 by Alejandrina Scanlon PA-C) Mother Glaucoma Father Cancer Lung cancer Other Allergies No family history of bleeding disorder Social History (Updated 10/19/21 @ 20:16 by Alejandrina Scanlon PA-C) Smoking Status: Current every day smoker Tobacco Type: Cigarettes Second Hand Exposure: Yes; Hx Alcohol Use: No Hx Substance Use: No Preferred Language: Kinyarwanda Communication Ability: Impaired Communication Ability Comment: Confused Visual Impairment: No Limitations Hearing Ability: Normal Beliefs That Will Affect Care: None Current Living Situation: Other Current Living Situation Comment: caregiver lives with Pt current occupational status: retired Feels Safe at Home: Yes Assistive Devices: Walker Allergies Allergies Allergy/AdvReac Type Severity Reaction Status Date / Time levofloxacin [From Levaquin] Allergy Severe airway Verified 10/19/21 20:02 edema Penicillins Allergy Unknown hives Unverified 10/27/19 09:19 procaine Allergy Unknown SWELLING Verified 10/27/19 09:19 codeine AdvReac Unknown GI UPSET Unverified 10/27/19 09:19 lidocaine AdvReac Unknown Verified 10/19/21 20:03 Home Meds Home Medications Medication Instructions Recorded Confirmed atorvastatin 10 mg tablet (Lipitor) 10 mg PO QAM #0 05/12/16 10/19/21 escitalopram oxalate 20 mg tablet 20 mg PO QAM #0 12/28/16 10/19/21 (Lexapro) aspirin 81 mg tablet,delayed 81 mg PO QAM 07/11/18 10/19/21 release (Laurel Low Dose Aspirin) morphine 15 mg immediate release 15 mg PO Q12 PRN 05/28/19 10/19/21 tablet fluticasone fur. 100 mcg-umeclid 1 inh INHALATION DAILY 11/20/19 10/19/21 62.5 mcg-vilant 25 mcg inhalat.powder (Trelegy Ellipta) oxybutynin chloride 5 mg 5 mg PO DAILY 10/05/20 10/19/21 tablet,extended release 24 hr vitamins A,C,W-rzkl-dvtfbj 7,160 1 tab PO DAILY 10/05/20 10/19/21 unit-113 mg-100 unit tablet (PreserVision AREDS) coenzyme Q10 100 mg capsule 100 mg PO DAILY 10/19/21 10/19/21 glucosamine sulf dipot 1 cap PO DAILY 10/19/21 10/19/21 chlr,msm,chond 550 mg-C 30 mg-cori 1 mg capsule (Glucosamine Chondroitin) hydroxyzine HCl 25 mg tablet 25 mg PO DAILY PRN 10/19/21 10/19/21 Results & Data (ED) Vital Signs Vital Signs - 24 hr 10/19/21 15:51 10/19/21 16:03 10/19/21 17:39 Temperature 37.7 C H Temperature Source Oral Pulse Rate 82 Pulse Rate [Apical] 75 Pulse Rhythm Regular Pulse Strength Normal Respiratory Rate 19 18 Respiratory Effort / Characteristics Non-Labored Respiratory Depth Normal Respiratory Pattern Regular Blood Pressure 115/59 L Blood Pressure [Right Arm] 122/58 L Blood Pressure Mean 77 Blood Pressure Mean [Right Arm] 79 Blood Pressure Position Lying Blood Pressure Position [Right Arm] Pulse Oximetry 99 98 Oxygen Delivery Method Nasal Cannula Room Air Nasal Cannula Oxygen Flow Rate 2 2 Sepsis Recent Fever Within 48 Hours No Sepsis New/Unexplained Change in Mental Status N/A Sepsis Action Taken by Nursing No Action Required 10/19/21 19:00 10/19/21 20:30 10/19/21 22:28 Temperature Temperature Source Pulse Rate Pulse Rate [Apical] 84 81 82 Pulse Rhythm Pulse Strength Respiratory Rate 18 18 22 Respiratory Effort / Characteristics Respiratory Depth Respiratory Pattern Blood Pressure Blood Pressure [Right Arm] 146/73 H 116/61 143/66 H Blood Pressure Mean Blood Pressure Mean [Right Arm] 97 79 91 Blood Pressure Position Blood Pressure Position [Right Arm] Lying Left Lateral Pulse Oximetry 95 100 98 Oxygen Delivery Method Nasal Cannula Nasal Cannula Nasal Cannula Oxygen Flow Rate 2 2 2 Sepsis Recent Fever Within 48 Hours Sepsis New/Unexplained Change in Mental Status Sepsis Action Taken by Nursing Laboratory Data Result diagrams: 10/19/21 16:05 10/19/21 16:05 Lab Results 10/19/21 10/19/21 10/19/21 Range/Units 16:05 16:05 16:05 WBC 10.90 H (4.8-10.8) K/uL RBC 4.77 (4.2-5.4) M/uL Hgb 14.3 (12.0-16.0) g/dL Hct 46.5 (37-47) % MCV 97.5 (80-100) fL MCH 30.0 (25-34) pg MCHC 30.8 L (32-36) g/dL RDW Std Deviation 61.0 H (36.4-46.3) fL RDW Coeff of Lora 16.9 H (11.5-14.5) % Plt Count 438 H (130-400) K/uL MPV 10.3 (7.4-10.4) fL Immature Gran % (Auto) 0.1 % Neut % (Auto) 80.0 % Lymph % (Auto) 13.3 % [place] % (Auto) 6.0 % Eos % (Auto) 0.4 % Baso % (Auto) 0.2 % Neut # (Auto) 8.73 H (1.4-6.5) K/uL Lymph # (Auto) 1.45 (1.2-3.4) K/uL [place] # (Auto) 0.65 H (0.11-0.59) K/uL Eos # (Auto) 0.04 (0-0.5) K/uL Baso # (Auto) 0.02 (0-0.2) K/uL Immature Gran # (Auto) 0.01 (0.00-0.02) K/uL ABG pH (7.35-7.45) ABG pCO2 (35-46) mmHg ABG pO2 (80-95) mmHg ABG HCO3 (19-24) mmol/L ABG O2 Saturation (90-95) % ABG Base Excess (-9-1.8) mEq/L Jonatan Test (Pos) Oxygen Given Sodium 142 (136-145) mmol/L Potassium 5.4 H (3.5-5.1) mmol/L Chloride 99 (98-107) mmol/L Carbon Dioxide 44 H* (21-32) mmol/L Anion Gap -1 L (3-11) BUN 25 H (6-23) mg/dl Creatinine 0.76 (0.6-1.2) mg/dl Est Cr Clr Drug Dosing 32.6 ml/min Est GFR ( Amer) 85.3 ml/min Est GFR (Non-Af Amer) 73.6 ml/min BUN/Creatinine Ratio 32.9 H (10-20) Glucose 77 (70-99(Fasting)) mg/dl Calcium 10.7 H (8.5-10.1) mg/dl Phosphorus (2.5-4.9) mg/dl Magnesium 2.2 (1.7-2.4) mg/dl Total Bilirubin 0.9 (0.2-1.0) mg/dl AST 20 (13-39) U/L ALT 15 (7-52) U/L Alkaline Phosphatase 74 (34-104) U/L Total Creatine Kinase 115 (26-192) U/L Troponin I High Sens 13.0 (0-14) pg/ml Total Protein 6.8 (6.0-8.3) gm/dl Albumin 4.0 (3.4-5.0) gm/dl Globulin 2.8 (2.5-4.0) gm/dl Albumin/Globulin Ratio 1.4 (0.9-2) TSH 1.090 (0.300-4.500) uIu/ml SARS-CoV-2, RNA, NAAT (NEGATIVE) 10/19/21 10/19/21 10/19/21 Range/Units 16:22 18:30 Unknown WBC (4.8-10.8) K/uL RBC (4.2-5.4) M/uL Hgb (12.0-16.0) g/dL Hct (37-47) % MCV (80-100) fL MCH (25-34) pg MCHC (32-36) g/dL RDW Std Deviation (36.4-46.3) fL RDW Coeff of Lora (11.5-14.5) % Plt Count (130-400) K/uL MPV (7.4-10.4) fL Immature Gran % (Auto) % Neut % (Auto) % Lymph % (Auto) % [place] % (Auto) % Eos % (Auto) % Baso % (Auto) % Neut # (Auto) (1.4-6.5) K/uL Lymph # (Auto) (1.2-3.4) K/uL [place] # (Auto) (0.11-0.59) K/uL Eos # (Auto) (0-0.5) K/uL Baso # (Auto) (0-0.2) K/uL Immature Gran # (Auto) (0.00-0.02) K/uL ABG pH 7.41 (7.35-7.45) ABG pCO2 74 H (35-46) mmHg ABG pO2 72 L (80-95) mmHg ABG HCO3 47 H (19-24) mmol/L ABG O2 Saturation 97.5 H (90-95) % ABG Base Excess 18.1 H (-9-1.8) mEq/L Jonatan Test POS (Pos) Oxygen Given 2L O2 Sodium (136-145) mmol/L Potassium (3.5-5.1) mmol/L Chloride (98-107) mmol/L Carbon Dioxide (21-32) mmol/L Anion Gap (3-11) BUN (6-23) mg/dl Creatinine (0.6-1.2) mg/dl Est Cr Clr Drug Dosing ml/min Est GFR ( Amer) ml/min Est GFR (Non-Af Amer) ml/min BUN/Creatinine Ratio (10-20) Glucose (70-99(Fasting)) mg/dl Calcium (8.5-10.1) mg/dl Phosphorus 3.6 (2.5-4.9) mg/dl Magnesium (1.7-2.4) mg/dl Total Bilirubin (0.2-1.0) mg/dl AST (13-39) U/L ALT (7-52) U/L Alkaline Phosphatase (34-104) U/L Total Creatine Kinase (26-192) U/L Troponin I High Sens (0-14) pg/ml Total Protein (6.0-8.3) gm/dl Albumin (3.4-5.0) gm/dl Globulin (2.5-4.0) gm/dl Albumin/Globulin Ratio (0.9-2) TSH (0.300-4.500) uIu/ml SARS-CoV-2, RNA, NAAT NEGATIVE (NEGATIVE) Administered Medications Discontinued Medications Lactated Ringer's (Lr) 500 mls @ 999 mls/hr IV .Q31M ONE Stop: 10/19/21 16:32 Last Infusion: 10/19/21 17:38 Dose: 0 mls/hr Documented by: [id number] Admin: 10/19/21 16:19 Dose: 999 mls/hr Documented by: [id number] Lorazepam 0.25 mg/ Syringe 0.25 mls @ 2 mls/min IV NOW STA Stop: 10/19/21 16:04 Last Admin: 10/19/21 16:19 Dose: 2 mls/min Documented by: [id number] Lorazepam (Lorazepam 2 Mg/1 Ml Vial) Confirm Administered Dose 1 mg .ROUTE .STK- MED ONE Stop: 10/19/21 16:17 Last Admin: 10/19/21 16:31 Dose: Not Given Documented by: [id number] Imaging Data Radiologist's Impression: Chest X-Ray 10/19/21 16:02 XR chest 1V portable HISTORY: 81 years-old Female weakness/contractures acute weakness COMPARISON: Chest radiograph 11/20/2019 TECHNIQUE: Portable AP view of the chest FINDINGS: The cardiomediastinal and hilar silhouettes are within normal limits. Atherosclerosis of the thoracic aorta. The lungs are hyperinflated. Emphysema with chronic interstitial coarsening. There is no pneumothorax, pleural effusion , airspace consolidation or overt pulmonary edema. Surgical clips of the upper abdomen. Degenerative changes of the shoulders and spine with sigmoidal thoracolumbar scoliosis. IMPRESSION: Emphysema without acute process. ACT 112: Negative or not required by law. The above report was generated using voice recognition software. It may contain grammatical, syntax or spelling errors. Electronically signed by: Dajuan Og M.D. 10/19/2021 4:[address] 10/19/21 16:03 CT head/brain wo con CLINICAL HISTORY: 81 years-old Female with contractures, transient dizziness. Acute dizziness TECHNIQUE: Multiple axial CT images of the head were obtained without contrast. A dose lowering technique was utilized adhering to the principles of ALARA. COMPARISON: Head CT 07/11/2018 FINDINGS: No acute intracranial hemorrhage, midline shift, intracranial mass, hydrocephalus, territorial ischemia or abnormal extra-axial collection. Age- related involutional changes. White matter hypodensities are suggestive of chronic microvascular ischemic disease. Cerebral vascular calcifications. Study is limited secondary to positioning. The calvarium is intact. Prior bilateral lens replacement. The paranasal sinuses, mastoid air cells, and middle ear cavities are clear. IMPRESSION: No acute intracranial abnormality. ACT 112: Negative or not required by law. The above report was generated using voice recognition software. It may contain grammatical, syntax or spelling errors. Electronically signed by: Dajuan Og M.D. 10/19/2021 4:[address] 10/19/21 16:03 CT lumbar spine wo con HISTORY: 81 years-old Female back pain, LE contractures acute low back pain with dizziness COMPARISON: CT abdomen and pelvis 11/20/2019 TECHNIQUE: Multiple axial CT images of the lumbar spine were obtained without the use of IV contrast. A dose lowering technique was used consistent with the principals of ALARA. FINDINGS: Study is limited secondary to the patient's positioning. Lumbar dextroscoliosis. Moderate to severe multilevel intervertebral disc space narrowing. Demineralized appearance of the bones. Heterogeneous appearance of the bone marrow is unchanged from the prior study. The imaged sacrum and iliac bones appear intact. Evaluation of the central canal and neuroforamina is limited by CT technique. Emphysema. Left nephrolithiasis. Subcentimeter hypodense lesion of the left kidney may represent a proteinaceous versus hemorrhagic cyst. Fecal retention. Generalized body wall edema. Cholecystectomy with biliary ductal dilation. IMPRESSION: 1. Limited exam secondary to positioning. 2. Scoliosis without acute fracture or subluxation identified. 3. Degenerative changes as above. 4. Left nephrolithiasis. ACT 112: Negative or not required by law. The above report was generated using voice recognition software. It may contain grammatical, syntax or spelling errors. Electronically signed by: Dajuan Og M.D. 10/19/2021 5:18 PM Discharge Plan Visit Data Chief Complaint: Leg Injury/Pain ED Provider: Avery Marte Discharge Problem: Spasms of the hands or feet, Chronic respiratory failure with hypoxia, on home O2 therapy Patient Disposition: Being Evaluated by Hospitalist Forms Stand Alone Forms: My JDCPhosphate Prescriptions Prescriptions: No Action atorvastatin [Lipitor] 10 mg Tablet 10 mg PO QAM Qty: 0 RF: 0 escitalopram oxalate [Lexapro] 20 mg Tablet 20 mg PO QAM Qty: 0 RF: 0 aspirin [Laurel Low Dose Aspirin] 81 mg Tablet,Delayed Release (Dr/Ec) 81 mg PO QAM RF: 0 morphine 15 mg tablet 15 mg PO Q12 PRN (Reason: Pain, Severe) RF: 0 Trelegy Ellipta 100-62.5-25 mcg blister with device 1 inh INHALATION DAILY RF: 0 oxybutynin chloride 5 mg tablet extended release 24hr 5 mg PO DAILY RF: 0 PreserVision AREDS 7,160 unit- 113 mg-100 unit Tablet 1 tab PO DAILY RF: 0 hydroxyzine HCl 25 mg tablet 25 mg PO DAILY PRN (Reason: Anxiety/sleep) RF: 0 coenzyme Q10 100 mg Capsule 100 mg PO DAILY RF: 0 Glucosamine Chondroitin 550-30-1 mg Capsule 1 cap PO DAILY RF: 0 Referrals Referrals: Ron Ortega MD [Primary Care Provider] -
[2021-10-19] MEDS ORDERED: LORazepam 2 MG/1 ML VIAL ONE (16:16)
--- NOTE | 2021-10-19 16:31 | XRay Report ---
XR chest 1V portable HISTORY: 81 years-old Female weakness/contractures acute weakness COMPARISON: Chest radiograph 11/20/2019 TECHNIQUE: Portable AP view of the chest FINDINGS: The cardiomediastinal and hilar silhouettes are within normal limits. Atherosclerosis of the thoracic aorta. The lungs are hyperinflated. Emphysema with chronic interstitial coarsening. There is no pneu mothorax, pleural effusion, airspace consolidation or overt pulmonary edema. Surgical clips of the up per abdomen. Degenerative changes of the shoulders and spine with sigmoidal thoracolumbar scoliosis. IMPRESSION: Emphysema without acute process. ACT 112: Negative or not required by law. The above report was generated using voice recognition software. It may contain grammatical, syntax o r spelling errors. Electronically signed by: Dajuan Og M.D. 10/19/2021 4:29 PM
[2021-10-19 16:36] LABS: Basophils # (auto) 0.02 K/uL (0-0.2); Basophils % (auto) 0.2 %; Eosinophils # (auto) 0.04 K/uL (0-0.5); Eosinophils % (auto) 0.4 %; Hematocrit (blood only) 46.5 % (37-47); Hemoglobin 14.3 g/dL (12.0-16.0); Immature Granulocytes # (auto) 0.01 K/uL (0.00-0.02); Immature Granulocytes % (auto) 0.1 %; Lymphocytes # (auto) 1.45 K/uL (1.2-3.4); Lymphocytes % (auto) 13.3 %; Mean Corpuscular Hgb Conc 30.8 g/dL (32-36); Mean Corpuscular Volume 97.5 fL (80-100); Mean Platelet Volume 10.3 fL (7.4-10.4); Monocytes # (auto) 0.65 K/uL (0.11-0.59); Neutrophils # (auto) 8.73 K/uL (1.4-6.5); Platelet Count 438 K/uL (130-400); RDW Coefficient of Variation 16.9 % (11.5-14.5); Red Blood Count 4.77 M/uL (4.2-5.4)
--- NOTE | 2021-10-19 16:50 | CT Scan Report ---
CT head/brain wo con CLINICAL HISTORY: 81 years-old Female with contractures, transient dizziness. Acute dizziness TECHNIQUE: Multiple axial CT images of the head were obtained without contrast. A dose lowering tech nique was utilized adhering to the principles of ALARA. COMPARISON: Head CT 07/11/2018 FINDINGS: No acute intracranial hemorrhage, midline shift, intracranial mass, hydrocephalus, territorial ischem ia or abnormal extra-axial collection. Age-related involutional changes. White matter hypodensities a re suggestive of chronic microvascular ischemic disease. Cerebral vascular calcifications. Study is l imited secondary to positioning. The calvarium is intact. Prior bilateral lens replacement. The paranasal sinuses, mastoid air cells, and middle ear cavities are clear. IMPRESSION: No acute intracranial abnormality. ACT 112: Negative or not required by law. The above report was generated using voice recognition software. It may contain grammatical, syntax o r spelling errors. Electronically signed by: Dajuan Og M.D. 10/19/2021 4:49 PM
--- NOTE | 2021-10-19 17:20 | CT Scan Report ---
CT lumbar spine wo con HISTORY: 81 years-old Female back pain, LE contractures acute low back pain with dizziness COMPARISON: CT abdomen and pelvis 11/20/2019 TECHNIQUE: Multiple axial CT images of the lumbar spine were obtained without the use of IV contrast. A dose lowering technique was used consistent with the principals of [place]. FINDINGS: Study is limited secondary to the patient's positioning. Lumbar dextroscoliosis. Moderate to severe m ultilevel intervertebral disc space narrowing. Demineralized appearance of the bones. Heterogeneous a ppearance of the bone marrow is unchanged from the prior study. The imaged sacrum and iliac bones jordan ear intact. Evaluation of the central canal and neuroforamina is limited by CT technique. Emphysema. Left nephrolithiasis. Subcentimeter hypodense lesion of the left kidney may represent a pr oteinaceous versus hemorrhagic cyst. Fecal retention. Generalized body wall edema. Cholecystectomy wi th biliary ductal dilation. IMPRESSION: 1. Limited exam secondary to positioning. 2. Scoliosis without acute fracture or subluxation identified. 3. Degenerative changes as above. 4. Left nephrolithiasis. ACT 112: Negative or not required by law. The above report was generated using voice recognition software. It may contain grammatical, syntax o r spelling errors. Electronically signed by: Dajuan Og M.D. 10/19/2021 5:18 PM
[2021-10-19 17:39] LABS: Albumin Globulin Ratio 1.4 (0.9-2); BUN Creatinine Ratio 32.9 (10-20); Bilirubin,Total 0.9 mg/dl (0.2-1.0); Calcium 10.7 mg/dl (8.5-10.1); Creatinine Clr Calc Pharmacy 32.6 ml/min; Est GFR (African American) 85.3 ml/min; Est GFR (Non-African American) 73.6 ml/min; Globulin 2.8 gm/dl (2.5-4.0); Magnesium 2.2 mg/dl (1.7-2.4); Potassium 5.4 mmol/L (3.5-5.1); Total Protein 6.8 gm/dl (6.0-8.3)
--- NOTE | 2021-10-19 18:08 | History & Physical Report ---
Date of Service October 19, 2021 History of Present Illness Primary Care Provider: Ron Ortega MD Allergies Allergy/AdvReac Type Severity Reaction Status Date / Time Penicillins Allergy Unknown hives Unverified 10/27/19 09:19 procaine Allergy Unknown SWELLING Verified 10/27/19 09:19 codeine AdvReac Unknown GI UPSET Unverified 10/27/19 09:19 Home Medications Medication Instructions Recorded Confirmed Type atorvastatin 10 mg tablet (Lipitor) 10 mg PO QAM #0 05/12/16 10/05/20 History escitalopram oxalate 20 mg tablet 20 mg PO QAM #0 12/28/16 10/05/20 History (Lexapro) aspirin 81 mg tablet,delayed 81 mg PO QAM 07/11/18 10/05/20 History release (Laurel Low Dose Aspirin) morphine 15 mg immediate release 15 mg PO Q12 PRN 05/28/19 10/05/20 History tablet fluticasone fur. 100 mcg-umeclid 1 inh INHALATION DAILY 11/20/19 10/05/20 History 62.5 mcg-vilant 25 mcg inhalat.powder (Trelegy Ellipta) gabapentin 100 mg capsule 100 mg PO BID 10/05/20 10/05/20 History oxybutynin chloride 5 mg 5 mg PO DAILY 10/05/20 10/05/20 History tablet,extended release 24 hr vitamins A,C,Q-xkmt-fntpio 7,160 1 tab PO DAILY 10/05/20 10/05/20 History unit-113 mg-100 unit tablet (PreserVision AREDS) Past Med/Surg History Medical History (Updated 10/20/20 @ 00:05 by Jena Butt) Adenocarcinoma of lung (10/13/10) "s/p resection, chemo and radiation 10 yrs ago" Bronchitis Chronic pain syndrome (10/13/10) Chronic prescription opiate use CKD (chronic kidney disease), stage III COPD (chronic obstructive pulmonary disease) Depression Gastroesophageal reflux disease (10/13/10) Hyperlipidemia Lumbar spinal stenosis Osteoporosis Pulmonary hypertension Stroke Surgical History H/O splenectomy History of adrenal surgery History of bladder surgery History of hysterectomy History of lung surgery History of tonsillectomy and adenoidectomy Hx of appendectomy S/P cholecystectomy Family History Mother Glaucoma Father Cancer Lung cancer Other Allergies No family history of adverse response to anesthesia No family history of bleeding disorder Social History Smoking Status: Current every day smoker Tobacco Type: Cigarettes Second Hand Exposure: Yes; Hx Alcohol Use: No Hx Substance Use: No Preferred Language: Omani Communication Ability: Effective Visual Impairment: No Limitations Hearing Ability: Normal Beliefs That Will Affect Care: None Current Living Situation: Other Current Living Situation Comment: caregiver lives with Pt current occupational status: retired Feels Safe at Home: Yes Assistive Devices: Walker Results & Data Results & Data ([facility]) Vital Signs (Past 12 Hours) Vital Signs Temp Pulse Pulse Resp BP BP Pulse Ox 10/19/21 17:39 75 18 122/58 L 98 10/19/21 15:51 37.7 C H 82 19 115/59 L 99
[2021-10-19 18:41] LABS: Base Excess ABG 18.1 mEq/L (-9-1.8); HCO3 ABG 47 mmol/L (19-24); Oxygen Saturation ABG 97.5 % (90-95); PCO2 ABG 74 mmHg (35-46); PO2 ABG 72 mmHg (80-95); pH ABG 7.41 (7.35-7.45)
[2021-10-19 18:42] LABS: Allen Test POS (Pos)
--- NOTE | 2021-10-19 19:06 | History & Physical Report ---
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 Acute encephalopathy Hypercarbia, although pH reflects compensated state admit to tele etiology unclear, ? infectious vs medication induced vs hypercarbia does not meet SIRS criteria obtain blood cultures and urine culture given hypercarbia will trial bipap, repeat abg in a.m. gentle IVF hold morphine and hydroxyzine Hyperkalemia Hypercalcemia pt w/o ekg changes repeat lab at 2200 and in am. given gentle IVF known hyperparathyroidism if remains high will initiate tx Chronic resp failure with hypoxia on home O2 COPD w/o exacerbation Tobacco abuse continue trelegy encourage smoking cessation Chronic pain syndrome Scoliosis Lumbar spinal stenosis B/L lower ext contractures on chronic Morphine therapy bid prn will hold morphine for now given encephalopathy also hold hydroxyzine consult PT/OT to assist with ROM Flexeril 5mg bid to assist with muscle relaxation Hyperparathyroidism not on ca supplement or vit d repeat calcium Congenital single kidney monitor renal fxn Hx of splenectomy chronic thrombocytosis plt ct 438 DVT ppx: SQ heparin bid Dispo: tele PCP: Shannon FULL CODE Pt sole caregiver is Thuy Lehman, whom lives with pt, and is requesting updates History of Present Illness Chief Complaint: Worsening confusion and contractures x 1 day. 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 Caregiver is at bedside. Patient unable to give accurate history due to underlying cognition. Caregiver at bedside states she has been caring for patient for over the past 4 years. She does have a daughter who is not in the area and does not engage in patient care. Patient is bedbound due to lumbar spinal stenosis and arthritis. Over the past 2 months caregiver feels she has been more confused off and on; however, today it was much worse. Patient has chronic low back pain and bilateral leg pain. Today patient's legs became contracted and caregiver unable to assist patient and moving them. Because of this they came to ER. She denies any documented fever at home. Patient has been compliant with her Trelegy and oxygen. Caregiver has not noticed any audible wheezing or coughing. She feels her appetite has otherwise been normal and denies any diarrhea. ROS otherwise limited from patient. Only medication change is 2 months ago she was taking lasix because of swelling in feet, but is now off lasix. She also is taking hydroxyzine 25mg about once a day. In ED patient remained hemodynamically stable. She did have mild elevation in temperature at 37.7. Her WBC was 10.90. Her platelet count was 438. An ABG was performed which showed a pH of 7.41 and elevated CO2 at 74, potassium elevated at 5.4, anion gap -1, BUN 25, calcium 10.7. She received IV fluid and IV lorazepam in the ED. Caregiver bedside feels lorazepam did help relax her a little bit. Allergies Allergy/AdvReac Type Severity Reaction Status Date / Time levofloxacin [From Levaquin] Allergy Severe airway Verified 10/19/21 20:02 edema Penicillins Allergy Unknown hives Unverified 10/27/19 09:19 procaine Allergy Unknown SWELLING Verified 10/27/19 09:19 codeine AdvReac Unknown GI UPSET Unverified 10/27/19 09:19 lidocaine AdvReac Unknown Verified 10/19/21 20:03 Home Medications Medication Instructions Recorded Confirmed Type atorvastatin 10 mg tablet (Lipitor) 10 mg PO QAM #0 05/12/16 10/19/21 History escitalopram oxalate 20 mg tablet 20 mg PO QAM #0 12/28/16 10/19/21 History (Lexapro) aspirin 81 mg tablet,delayed 81 mg PO QAM 07/11/18 10/19/21 History release ([facility] Low Dose Aspirin) morphine 15 mg immediate release 15 mg PO Q12 PRN 05/28/19 10/19/21 History tablet fluticasone fur. 100 mcg-umeclid 1 inh INHALATION DAILY 11/20/19 10/19/21 History 62.5 mcg-vilant 25 mcg inhalat.powder (Trelegy Ellipta) oxybutynin chloride 5 mg 5 mg PO DAILY 10/05/20 10/19/21 History tablet,extended release 24 hr vitamins A,C,W-aylc-tnauoj 7,160 1 tab PO DAILY 10/05/20 10/19/21 History unit-113 mg-100 unit tablet (PreserVision AREDS) coenzyme Q10 100 mg capsule 100 mg PO DAILY 10/19/21 10/19/21 History glucosamine sulf dipot 1 cap PO DAILY 10/19/21 10/19/21 History chlr,msm,chond 550 mg-C 30 mg-cori 1 mg capsule (Glucosamine Chondroitin) hydroxyzine HCl 25 mg tablet 25 mg PO DAILY PRN 10/19/21 10/19/21 History Past Med/Surg History Medical History (Updated 10/19/21 @ 20:21 by Alejandrina Scanlon PA-C) Adenocarcinoma of lung (10/13/10) "s/p resection, chemo and radiation 10 yrs ago" Bronchitis Chronic pain syndrome (10/13/10) Chronic prescription opiate use CKD (chronic kidney disease), stage III COPD (chronic obstructive pulmonary disease) Depression Gastroesophageal reflux disease (10/13/10) Hyperlipidemia Lumbar spinal stenosis Osteoporosis Pulmonary hypertension Stroke Surgical History H/O splenectomy History of adrenal surgery History of bladder surgery History of hysterectomy History of lung surgery History of tonsillectomy and adenoidectomy Hx of appendectomy S/P cholecystectomy Family History (Updated 10/19/21 @ 20:16 by Alejandrina Scanlon PA-C) Mother Glaucoma Father Cancer Lung cancer Other Allergies No family history of bleeding disorder Social History (Updated 10/19/21 @ 20:16 by Alejandrina L. Zapsky, PA-C) Smoking Status: Current every day smoker Tobacco Type: Cigarettes Second Hand Exposure: Yes; Hx Alcohol Use: No Hx Substance Use: No Preferred Language: Luxembourgish Communication Ability: Impaired Communication Ability Comment: Confused Visual Impairment: No Limitations Hearing Ability: Normal Beliefs That Will Affect Care: None Current Living Situation: Other Current Living Situation Comment: caregiver lives with Pt current occupational status: retired Feels Safe at Home: Yes Assistive Devices: Walker Review of Systems Review of Systems: Unobtainable due to cognitive status Physical Exam Physical Exam: Please refer to Dr. Darnell addendum for physical exam findings. Results & Data Results & Data ([facility]) Vital Signs (Past 12 Hours) Vital Signs Temp Pulse Pulse Resp BP BP Pulse Ox 10/19/21 17:39 75 18 122/58 L 98 10/19/21 15:51 37.7 C H 82 19 115/59 L 99 Diagnostic Findings Chest X-Ray 10/19/21 16:02 XR chest 1V portable HISTORY: 81 years-old Female weakness/contractures acute weakness COMPARISON: Chest radiograph 11/20/2019 TECHNIQUE: Portable AP view of the chest FINDINGS: The cardiomediastinal and hilar silhouettes are within normal limits. Atherosclerosis of the thoracic aorta. The lungs are hyperinflated. Emphysema with chronic interstitial coarsening. There is no pneumothorax, pleural effusion, airspace consolidation or overt pulmonary edema. Surgical clips of the upper abdomen. Degenerative changes of the shoulders and spine with sigmoidal thoracolumbar scoliosis. IMPRESSION: Emphysema without acute process. ACT 112: Negative or not required by law. The above report was generated using voice recognition software. It may contain grammatical, syntax or spelling errors. Electronically signed by: Dajuan Og M.D. 10/19/2021 4:[address] 10/19/21 16:03 CT head/brain wo con CLINICAL HISTORY: 81 years-old Female with contractures, transient dizziness. Acute dizziness TECHNIQUE: Multiple axial CT images of the head were obtained without contrast. A dose lowering technique was utilized adhering to the principles of ALARA. COMPARISON: Head CT 07/11/2018 FINDINGS: No acute intracranial hemorrhage, midline shift, intracranial mass, hydrocephalus, territorial ischemia or abnormal extra-axial collection. Age- related involutional changes. White matter hypodensities are suggestive of chronic microvascular ischemic disease. Cerebral vascular calcifications. Study is limited secondary to positioning. The calvarium is intact. Prior bilateral lens replacement. The paranasal sinuses, mastoid air cells, and middle ear cavities are clear. IMPRESSION: No acute intracranial abnormality. ACT 112: Negative or not required by law. The above report was generated using voice recognition software. It may contain grammatical, syntax or spelling errors. Electronically signed by: Dajuan Og M.D. 10/19/2021 4:[address] 10/19/21 16:03 CT lumbar spine wo con HISTORY: 81 years-old Female back pain, LE contractures acute low back pain with dizziness COMPARISON: CT abdomen and pelvis 11/20/2019 TECHNIQUE: Multiple axial CT images of the lumbar spine were obtained without the use of IV contrast. A dose lowering technique was used consistent with the principals of ALARA. FINDINGS: Study is limited secondary to the patient's positioning. Lumbar dextroscoliosis. Moderate to severe multilevel intervertebral disc space narrowing. Demineralized appearance of the bones. Heterogeneous appearance of the bone marrow is unchanged from the prior study. The imaged sacrum and iliac bones appear intact. Evaluation of the central canal and neuroforamina is limited by CT technique. Emphysema. Left nephrolithiasis. Subcentimeter hypodense lesion of the left kidney may represent a proteinaceous versus hemorrhagic cyst. Fecal retention. Generalized body wall edema. Cholecystectomy with biliary ductal dilation. IMPRESSION: 1. Limited exam secondary to positioning. 2. Scoliosis without acute fracture or subluxation identified. 3. Degenerative changes as above. 4. Left nephrolithiasis. ACT 112: Negative or not required by law. The above report was generated using voice recognition software. It may contain grammatical, syntax or spelling errors. Electronically signed by: Dajuan Og M.D. 10/19/2021 5:18 PM Medications Administered Medication List Discontinued Medications Lactated Ringer's (Lr) 500 mls @ 999 mls/hr IV .Q31M ONE Stop: 10/19/21 16:32 Last Infusion: 10/19/21 17:38 Dose: 0 mls/hr Documented by: [id number] Admin: 10/19/21 16:19 Dose: 999 mls/hr Documented by: [id number] Lorazepam 0.25 mg/ Syringe 0.25 mls @ 2 mls/min IV NOW STA Stop: 10/19/21 16:04 Last Admin: 10/19/21 16:19 Dose: 2 mls/min Documented by: [id number] Lorazepam (Lorazepam 2 Mg/1 Ml Vial) Confirm Administered Dose 1 mg .ROUTE .STK- MED ONE Stop: 10/19/21 16:17 Last Admin: 10/19/21 16:31 Dose: Not Given Documented by: [id number] ECG Rate (beats per minute): 80 Rhythm: normal sinus COVID-19 Results Results COVID-19 Adm Lab Results: RBC 4.77 M/uL (4.2-5.4) 10/19/21 WBC 10.90 K/uL (4.8-10.8) H 10/19/21 Hgb 14.3 g/dL (12.0-16.0) 10/19/21 Hct 46.5 % (37-47) 10/19/21 Plt Count 438 K/uL (130-400) H 10/19/21 Neutrophils (%) (Auto) 80.0 % 10/19/21 Lymphocytes (%) (Auto) 13.3 % 10/19/21 Monocytes # (Auto) 0.65 K/uL (0.11-0.59) H 10/19/21 Eosinophils # (Auto) 0.04 K/uL (0-0.5) 10/19/21 Immature Granulocyte % (Auto) 0.1 % 10/19/21 Neutrophils # (Auto) 8.73 K/uL (1.4-6.5) H 10/19/21 Lymphocytes # (Auto) 1.45 K/uL (1.2-3.4) 10/19/21 Monocytes # (Auto) 0.65 K/uL (0.11-0.59) H 10/19/21 Eosinophils # (Auto) 0.04 K/uL (0-0.5) 10/19/21 Basophils # (Auto) 0.02 K/uL (0-0.2) 10/19/21 Immature Granulocyte # (Auto) 0.01 K/uL (0.00-0.02) 10/19/21 Na 142 mmol/L (136-145) 10/19/21 K 5.4 mmol/L (3.5-5.1) H 10/19/21 Cl 99 mmol/L (98-107) 10/19/21 CO2 44 mmol/L (21-32) H* 10/19/21 Anion Gap -1 (3-11) L 10/19/21 BUN 25 mg/dl (6-23) H 10/19/21 Creatinine 0.76 mg/dl (0.6-1.2) 10/19/21 BUN/Creatinine Ratio 32.9 (10-20) H 10/19/21 Glucose Level 77 mg/dl (70-99(Fasting)) 10/19/21 Ca 10.7 mg/dl (8.5-10.1) H 10/19/21 Phosphorus Level 3.6 mg/dl (2.5-4.9) 10/19/21 Total Bilirubin 0.9 mg/dl (0.2-1.0) 10/19/21 AST/SGOT 20 U/L (13-39) 10/19/21 ALT/SGPT 15 U/L (7-52) 10/19/21 Alkaline Phosphatase 74 U/L (34-104) 10/19/21 Total Protein 6.8 gm/dl (6.0-8.3) 10/19/21 Albumin 4.0 gm/dl (3.4-5.0) 10/19/21 Globulin 2.8 gm/dl (2.5-4.0) 10/19/21 Albumin/Globulin Ratio 1.4 (0.9-2) 10/19/21 Total CK 115 U/L (26-192) 10/19/21 SARS-CoV-2, RNA, NAAT NEGATIVE (NEGATIVE) 10/19/21 ABG pH 7.41 (7.35-7.45) 10/19/21 ABG pCO2 74 mmHg (35-46) H 10/19/21 ABG pO2 72 mmHg (80-95) L 10/19/21 ABG HCO3 47 mmol/L (19-24) H 10/19/21 ABG O2 Saturation 97.5 % (90-95) H 10/19/21 ABG Base Excess 18.1 mEq/L (-9-1.8) H 10/19/21 Chest X-Ray 10/19/21 Code Status & VTE Plan Code Status FULL CODE VTE Prophylaxis Plan VTE Prophylaxis will be ordered: Yes Supervising Physician Co-Signing Physician Notes And is an 81-year-old female with history of chronic respiratory failure with hypoxia, oxygen dependent on 2 L at baseline, COPD, hyperparathyroidism, pulmonary hypertension, history of lung cancer, CVA and other medical problems was brought due to worsening confusion, contractures/spasms of predominantly lower extremities since 1 day duration. Most of the history is obtained from patient's caregiver at bedside. Patient continues to smoke on daily basis. She has chronic intermittent cough, chronic back pain secondary to lumbar spinal stenosis, arthritis. Patient intermittently confused over the past 2 months as per caregiver. Patient was on Lasix previously for leg edema which has been held since last 2 months. No new medication changes. She is on Trelegy, supplemental oxygen at baseline. Patient is bedbound and has ambulatory dysfunction. Patient has been complaining of spasms and difficulty stretching her left lower extremity secondary to pain. Please review HPI for complete details of presentation. Blood work showed WBC 10.9, hemoglobin 14.3, platelet 438, ABG suggestive of hypercarbia, sodium 142, potassium 5.4, bicarbonate 44, glucose 77, phosphorus 3.6, normal LFTs, TSH normal. Urinalysis currently pending. Check ammonia levels. CT head showed no acute intracranial abnormality. Chest x-ray suggestive of emphysema but otherwise no acute process. Lumbar CT showed degenerative changes, scoliosis. EKG poor tracing, no significant change from prior. Physical Exam: Vitals signs as noted above General Appearance: Thin, frail, cachectic, elderly, chronically appearing, no apparent distress Head: normocephalic, Atraumatic Eyes: normal inspection, EOMI Neck: supple, Trachea midline Respiratory/Chest: Normal breath sounds, CTA, No accessory muscle use Cardiovascular: S1, S2, No murmur Abdomen/GI:Soft, Non tender, Bowel sounds present Extremities/Musculoskeletal:normal inspection, no edema Neurologic/Psych:AAOX2, grossly no focal neurological deficits, LLE Contacted but able to partially extend with minimal support, inversion of feet Skin: normal color, warm Acute metabolic encephalopathy Acute on chronic respiratory failure with hypercarbia, hypoxia Hyperkalemia Hypercalcemia Rule out UTI. Urine analysis pending Ambulatory dysfunction Severe protein calorie malnutrition Metabolic alkalosis Currently keep n.p.o. given being placed on BiPAP Aspiration, fall precautions PT OT No wheezing on exam Repeat BMP tonight Plan to start on low potassium diet and monitor potassium, calcium levels closely Gentle IV fluids Avoid calcium, vitamin D supplements Consider MRI brain if no improvement Will repeat ABG in the morning Hold sedative medications Counseled to quit smoking Trial of muscle relaxant CK normal I personally reviewed the record. Patient is interviewed and examined at bedside. Patient's care is coordinated with Alejandrina Scanlon PA-C. Please refer to the documentation above for details of patient's presentation and for discussion of other issues.
[2021-10-20 00:48] LABS: Anion Gap 1 (3-11); Blood Urea Nitrogen 27 mg/dl (6-23); Calcium 10.5 mg/dl (8.5-10.1); Carbon Dioxide 41 mmol/L (21-32); Chloride 98 mmol/L (98-107); Est GFR (African American) 89.5 ml/min; Est GFR (Non-African American) 77.2 ml/min; Glucose 69 mg/dl (70-99(Fasting)); Sodium 140 mmol/L (136-145)
[2021-10-20] MEDS ORDERED: ALUMINUM/MAGNESIUM SUSP 30 ML UDC PO PRN (02:04)
[2021-10-20] MEDS ORDERED: SODIUM CHLORIDE 0.9% 1000ML 1,000 ML IV SCH (02:04)
[2021-10-20] MEDS ORDERED: POLYETHYLENE (MIRALAX) 17 GM PACK PO PRN (02:04)
[2021-10-20] MEDS ORDERED: MAGNESIUM HYDROXIDE SUSP 30 ML UDC PO PRN (02:04)
[2021-10-20] MEDS: CYCLOBENZAPRINE HCL 5 MG TAB PO SCH ×3 (02:52→21:21)
[2021-10-20] MEDS: HEPARIN SOD 5,000 UNIT/0.5 ML VIAL SQ SCH ×3 (02:54→21:20)
[2021-10-20 06:42] LABS: Base Excess ABG 14.7 mEq/L (-9-1.8); HCO3 ABG 41 mmol/L (19-24); Oxygen Saturation ABG 97.9 % (90-95); PCO2 ABG 58 mmHg (35-46); PO2 ABG 74 mmHg (80-95); pH ABG 7.46 (7.35-7.45)
[2021-10-20 06:52] LABS: Allen Test Pos (Pos)
[2021-10-20 06:59] LABS: Basophils # (auto) 0.03 K/uL (0-0.2); Basophils % (auto) 0.3 %; Eosinophils # (auto) 0.04 K/uL (0-0.5); Eosinophils % (auto) 0.4 %; Hematocrit (blood only) 40.4 % (37-47); Immature Granulocytes # (auto) 0.01 K/uL (0.00-0.02); Immature Granulocytes % (auto) 0.1 %; Lymphocytes % (auto) 17.3 %; Mean Corpuscular Hemoglobin 30.3 pg (25-34); Mean Corpuscular Hgb Conc 32.2 g/dL (32-36); Mean Corpuscular Volume 94.2 fL (80-100); Mean Platelet Volume 9.9 fL (7.4-10.4); Monocytes # (auto) 0.51 K/uL (0.11-0.59); Monocytes % (auto) 4.9 %; Platelet Count 412 K/uL (130-400); RDW Coefficient of Variation 16.6 % (11.5-14.5); RDW Standard Deviation 57.2 fL (36.4-46.3); Red Blood Count 4.29 M/uL (4.2-5.4); White Blood Count 10.39 K/uL (4.8-10.8)
[2021-10-20 07:03] LABS: Albumin Globulin Ratio 1.5 (0.9-2); Albumin Level 3.5 gm/dl (3.4-5.0); BUN Creatinine Ratio 46.8 (10-20); Calcium 9.9 mg/dl (8.5-10.1); Creatinine Clr Calc Pharmacy 40.4 ml/min; Est GFR (Non-African American) 84.6 ml/min; Globulin 2.3 gm/dl (2.5-4.0); Potassium 4.5 mmol/L (3.5-5.1); Total Protein 5.8 gm/dl (6.0-8.3)
[2021-10-20] MEDS: BACITRACIN OINT 15 GM TUBE EXT SCH ×2 (10:35→21:21)
[2021-10-20] MEDS: ESCITALOPRAM OXALATE 20 MG TAB PO SCH (10:36)
[2021-10-20] MEDS: ATORVASTATIN 10 MG TAB PO SCH (10:36)
[2021-10-20] MEDS: CEROVITE ADV FORMULA TAB PO SCH (10:36)
[2021-10-20] MEDS: OXYBUTYNIN CHLORIDE XL 5 MG TABCR PO SCH (10:36)
[2021-10-20] MEDS: ASPIRIN 81 MG ECTAB PO SCH (10:36)
[2021-10-20] MEDS: FLUTICASONE FUROATE 100MCG 14 PUFFS/INHALER INH SCH (10:37)
[2021-10-20] MEDS: UMECLIDINIUM/VILANTEROL 62.5/25MCG 7 PUFFS/INHALER INH SCH (10:37)
--- NOTE | 2021-10-20 12:08 | Electrocardiogram Report ---
Test Reason : Blood Pressure : / mmHG Vent. Rate : 080 BPM Atrial Rate : 080 BPM P-R Int : 168 ms QRS Dur : 078 ms QT Int : 380 ms P-R-T Axes : 076 186 079 degrees QTc Int : 438 ms Poor data quality, interpretation may be adversely affected Suspect arm lead reversal, interpretation assumes no reversal Normal sinus rhythm Biatrial enlargement Right superior axis deviation Anterior infarct (cited on or before 20-NOV-2019) Abnormal ECG When compared with ECG of 20-NOV-2019 15:37, No significant change was found Confirmed by Paulie Sidhu ([id number]) on 10/20/2021 12:07:44 PM Referred By: REFERRED SELF Confirmed By:Paulie Sidhu
--- NOTE | 2021-10-20 12:43 | Electrocardiogram Report ---
Test Reason : Blood Pressure : / mmHG Vent. Rate : 091 BPM Atrial Rate : 091 BPM P-R Int : 168 ms QRS Dur : 082 ms QT Int : 366 ms P-R-T Axes : 083 136 076 degrees QTc Int : 450 ms Normal sinus rhythm Biatrial enlargement Anterolateral infarct , age undetermined (cited on or before 20-NOV-2019) Anterior injury pattern Abnormal ECG When compared with ECG of 19-OCT-2021 16:30, (unconfirmed) Questionable change in QRS axis ST elevation now present in Anterior leads Confirmed by Paulie Sidhu ([id number]) on 10/20/2021 12:43:06 PM Referred By: REFERRED SELF Confirmed By:Paulie Sidhu
--- NOTE | 2021-10-20 14:39 | Hospitalist Progress Note ---
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 Acute encephalopathy Hypercarbia, although pH reflects compensated state etiology unclear, ? infectious vs medication induced vs hypercarbia does not meet SIRS criteria obtain blood cultures and urine culture given hypercarbia will trial bipap, repeat abg in a.m. gentle IVF hold morphine and hydroxyzine CO2 level normalized this morning and the patient is back on nasal cannula oxygen Clearance of confusion and she is back to her baseline Discussed with the caregiver likely transfer tomorrow Hyperkalemia Hypercalcemia pt w/o ekg changes repeat lab at 2200 and in am. given gentle IVF known hyperparathyroidism Hyperkalemia and hypercalcemia have been normalized Chronic resp failure with hypoxia on home O2 COPD w/o exacerbation Tobacco abuse continue trelegy Strongly advised to quit smoking which may be the cause for her current deterioration No signs and or symptoms of exacerbation-no need to add any steroid Chronic pain syndrome Scoliosis Lumbar spinal stenosis B/L lower ext contractures on chronic Morphine therapy bid prn will hold morphine for now given encephalopathy also hold hydroxyzine consult PT/OT to assist with ROM-awaiting PT and OT evaluation Flexeril 5mg bid to assist with muscle relaxation Hyperparathyroidism not on ca supplement or vit d repeat calcium Congenital single kidney monitor renal fxn Hx of splenectomy chronic thrombocytosis plt ct 438 DVT ppx: SQ heparin bid Dispo: tele PCP: Shannon FULL CODE Pt sole caregiver is Thuy Lehman, whom lives with pt, and is requesting updates Discussed with the caregiver likely discharge in a day or 2 Admission and Anticipated Discharge Date Admission Date: October 19, 2021 Subjective 10/20/2021 The patient was seen and examined in medical telemetry unit She has been feeling much better and denies any significant symptoms She has been moving all of her extremities and back to her baseline CO2 level has been normalized and she has been saturating normally on 2 L nasal cannula Review of Systems Review of Systems: All systems reviewed and are unremarkable except as noted below Physical Exam Physical Exam: Lying in bed comfortably Constitutional: + ill appearing and + thin Eyes: PERRL, conjunctivae normal, anicteric sclerae ENMT: external ear and nose normal, oropharynx normal Neck: trachea midline, no thyromegaly Respiratory: no respiratory distress Auscultation: + diminished lung sounds (Bilaterally) and + crackles (Occasional crackles at the bases) Gastrointestinal (Abdomen): Inspection/Auscultation: normal bowel sounds; abdomen not distended Percussion/Palpation: abdomen soft; abdomen nontender Musculoskeletal: No acute arthritis in any joint Neurologic: Alert and awake. Generally weak. Moving all extremities Results & Data Results & Data ([facility]) Vital Signs (Past 12 Hours) Vital Signs Temp Pulse Pulse Resp BP Pulse Ox 10/20/21 07:42 89 10/20/21 07:41 36.6 C 87 16 133/74 92 10/20/21 04:24 36.3 C L 90 18 130/66 95 10/20/21 04:22 76 10/20/21 03:00 88 25 H 98 Laboratory Results Short CBC 10/19/21 10/20/21 Range/Units 16:05 06:32 WBC 10.90 H 10.39 (4.8-10.8) K/uL Hgb 14.3 13.0 (12.0-16.0) g/dL Hct 46.5 40.4 (37-47) % Plt Count 438 H 412 H (130-400) K/uL BMP 10/19/21 10/20/21 10/20/21 16:05 00:15 01:33 Sodium 142 140 Potassium 5.4 H TNP 5.2 H Chloride 99 98 Carbon Dioxide 44 H* 41 H* BUN 25 H 27 H Creatinine 0.76 0.73 Glucose 77 69 L Calcium 10.7 H 10.5 H 10/20/21 06:32 Sodium 138 Potassium 4.5 Chloride 98 Carbon Dioxide 35 H BUN 29 H Creatinine 0.62 Glucose 57 L Calcium 9.9 Cardiac Enzymes 10/19/21 Range/Units 16:05 Total Creatine Kinase 115 (26-192) U/L Liver Function 10/19/21 10/20/21 Range/Units 16:05 06:32 Total Bilirubin 0.9 1.0 (0.2-1.0) mg/dl AST 20 20 (13-39) U/L ALT 15 13 (7-52) U/L Alkaline Phosphatase 74 69 (34-104) U/L Albumin 4.0 3.5 (3.4-5.0) gm/dl Medications Administered Current Inpatient Medications Acetaminophen (Acetaminophen 325 Mg Tab) 650 mg PO Q4H PRN PRN Reason: Pain or Fever Stop: 11/19/21 02:03 Al Hydrox/Mg Hydrox/Simethicone (Aluminum/Magnesium Susp 30 Ml Udc) 15 ml PO Q4H PRN PRN Reason: Dyspepsia Stop: 11/19/21 02:03 Aspirin (Aspirin 81 Mg Ectab) 81 mg PO QAM [facility] Stop: 11/19/21 08:59 Last Admin: 10/20/21 10:36 Dose: 81 mg Documented by: Atorvastatin Calcium (Atorvastatin 10 Mg Tab) 10 mg PO QAM [facility] Stop: 11/19/21 08:59 Last Admin: 10/20/21 10:36 Dose: 10 mg Documented by: Bacitracin (Bacitracin Oint 15 Gm Tube) 1 appln EXT BID [facility] Stop: 11/19/21 08:59 Last Admin: 10/20/21 10:35 Dose: 1 appln Documented by: Cyclobenzaprine HCl (Cyclobenzaprine Hcl 5 Mg Tab) 5 mg PO BID [facility] Stop: 11/19/21 02:03 Last Admin: 10/20/21 10:36 Dose: 5 mg Documented by: Escitalopram Oxalate (Escitalopram Oxalate 20 Mg Tab) 20 mg PO QAM [facility] Stop: 11/19/21 08:59 Last Admin: 10/20/21 10:36 Dose: 20 mg Documented by: Fluticasone Furoate (Fluticasone Furoate 100mcg 14 Puffs/Inhaler) 1 puffs INH DAILY [facility] Stop: 11/19/21 08:59 Last Admin: 10/20/21 10:37 Dose: 1 puffs Documented by: Heparin Sodium (Porcine) (Heparin Sod 5,000 Unit/0.5 Ml Vial) 5,000 units SQ Q12 [facility] Stop: 11/19/21 02:03 Last Admin: 10/20/21 10:37 Dose: 5,000 units Documented by: Sodium Chloride (Nss 1000ml) 1,000 mls @ 60 mls/hr IV .[id number] [facility] Stop: 10/20/21 18:43 Last Admin: 10/20/21 02:53 Dose: 60 mls/hr Documented by: Magnesium Hydroxide (Magnesium Hydroxide Susp 30 Ml Udc) 30 ml PO Q12H PRN PRN Reason: Constipation Stop: 11/19/21 02:03 Multivitamins/Minerals (Cerovite Adv Formula Tab) 1 tab PO DAILY [facility] Stop: 11/19/21 08:59 Last Admin: 10/20/21 10:36 Dose: 1 tab Documented by: Ondansetron HCl (Ondansetron Inj 2 Mg/Ml 2 Ml Vial) 4 mg IV Q6H PRN PRN Reason: Nausea Stop: 11/19/21 02:03 Oxybutynin Chloride (Oxybutynin Chloride Xl 5 Mg Tabcr) 5 mg PO DAILY [facility] Stop: 11/19/21 08:59 Last Admin: 10/20/21 10:36 Dose: 5 mg Documented by: Polyethylene Glycol (Polyethylene (Miralax) 17 Gm Pack) 17 gm PO DAILY PRN PRN Reason: Constipation Stop: 11/19/21 02:03 Umeclidinium/Vilanterol (Umeclidinium/Vilanterol 62.5/25mcg 7 Puffs/Inhaler) 1 puffs INH DAILY [facility] Stop: 11/19/21 08:59 Last Admin: 10/20/21 10:37 Dose: 1 puffs Documented by:
[2021-10-21] MEDS ORDERED: hydrOXYzine HCl 10 MG TAB PO STA (00:52)
[2021-10-21 07:27] LABS: Basophils # (auto) 0.02 K/uL (0-0.2); Basophils % (auto) 0.2 %; Eosinophils # (auto) 0.15 K/uL (0-0.5); Eosinophils % (auto) 1.5 %; Hemoglobin 12.3 g/dL (12.0-16.0); Immature Granulocytes # (auto) 0.02 K/uL (0.00-0.02); Immature Granulocytes % (auto) 0.2 %; Lymphocytes % (auto) 21.2 %; Mean Corpuscular Hemoglobin 29.9 pg (25-34); Mean Corpuscular Hgb Conc 32.4 g/dL (32-36); Mean Corpuscular Volume 92.5 fL (80-100); Mean Platelet Volume 10.3 fL (7.4-10.4); Monocytes # (auto) 0.75 K/uL (0.11-0.59); Monocytes % (auto) 7.6 %; Neutrophils # (auto) 6.87 K/uL (1.4-6.5); Neutrophils % (auto) 69.3 %; Platelet Count 437 K/uL (130-400); RDW Coefficient of Variation 16.3 % (11.5-14.5); RDW Standard Deviation 55.5 fL (36.4-46.3); Red Blood Count 4.11 M/uL (4.2-5.4); White Blood Count 9.91 K/uL (4.8-10.8)
[2021-10-21 07:43] LABS: BUN Creatinine Ratio 32.8 (10-20); Calcium 9.3 mg/dl (8.5-10.1); Creatinine Clr Calc Pharmacy 39.5 ml/min; Est GFR (Non-African American) 83.7 ml/min; Potassium 3.8 mmol/L (3.5-5.1)
[2021-10-21] MEDS: OXYBUTYNIN CHLORIDE XL 5 MG TABCR PO SCH (08:25)
[2021-10-21] MEDS: FLUTICASONE FUROATE 100MCG 14 PUFFS/INHALER INH SCH (08:25)
[2021-10-21] MEDS: UMECLIDINIUM/VILANTEROL 62.5/25MCG 7 PUFFS/INHALER INH SCH (08:25)
[2021-10-21] MEDS: ATORVASTATIN 10 MG TAB PO SCH (08:25)
[2021-10-21] MEDS: CYCLOBENZAPRINE HCL 5 MG TAB PO SCH ×2 (08:25→20:38)
[2021-10-21] MEDS: ESCITALOPRAM OXALATE 20 MG TAB PO SCH (08:25)
[2021-10-21] MEDS: ASPIRIN 81 MG ECTAB PO SCH (08:25)
[2021-10-21] MEDS: CEROVITE ADV FORMULA TAB PO SCH (08:25)
[2021-10-21] MEDS: HEPARIN SOD 5,000 UNIT/0.5 ML VIAL SQ SCH ×2 (08:26→20:37)
[2021-10-21] MEDS: BACITRACIN OINT 15 GM TUBE EXT SCH ×2 (08:26→20:38)
--- NOTE | 2021-10-21 13:45 | Hospitalist Progress Note ---
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 Acute encephalopathy Hypercarbia, although pH reflects compensated state etiology unclear, ? infectious vs medication induced vs hypercarbia does not meet SIRS criteria obtain blood cultures and urine culture given hypercarbia will trial bipap, repeat abg in a.m. gentle IVF hold morphine and hydroxyzine CO2 level normalized this morning and the patient is back on nasal cannula oxygen Clearance of confusion and she is back to her baseline Seems to be at her baseline and saturating normally on 2 L nasal cannula oxygen Has had PT and recommendation was to go to rehab for short-term Discussed with the patient and the caregiver-want to pursue rehab for short- term. Hyperkalemia Hypercalcemia pt w/o ekg changes repeat lab at 2200 and in am. given gentle IVF known hyperparathyroidism Hyperkalemia and hypercalcemia have been normalized Labs remain unremarkable Chronic resp failure with hypoxia on home O2 COPD w/o exacerbation Tobacco abuse continue trelegy Strongly advised to quit smoking which may be the cause for her current deterioration No signs and or symptoms of exacerbation-no need to add any steroid Has been saturating normally on 2 L nasal cannula Chronic pain syndrome Scoliosis Lumbar spinal stenosis B/L lower ext contractures on chronic Morphine therapy bid prn will hold morphine for now given encephalopathy also hold hydroxyzine consult PT/OT to assist with ROM-awaiting PT and OT evaluation Flexeril 5mg bid to assist with muscle relaxation Hyperparathyroidism not on ca supplement or vit d repeat calcium Congenital single kidney monitor renal fxn Hx of splenectomy chronic thrombocytosis plt ct 438 DVT ppx: SQ heparin bid Dispo: tele PCP: Shannon FULL CODE Pt sole caregiver is Thuy Lehman, whom lives with pt, and is requesting updates Discussed with the caregiver likely discharge in a day or 2 Will need rehab Admission and Anticipated Discharge Date Admission Date: October 19, 2021 Subjective 10/20/2021 The patient was seen and examined in medical telemetry unit She has been feeling much better and denies any significant symptoms She has been moving all of her extremities and back to her baseline CO2 level has been normalized and she has been saturating normally on 2 L nasal cannula 10/21/2021 The patient was seen and examined in medical telemetry unit She is back to her baseline Denies any significant symptoms and wants to go home PT recommended rehab and that was discussed with the caregiver Review of Systems Review of Systems: All systems reviewed and are unremarkable except as noted below Physical Exam Physical Exam: Lying in bed comfortably Constitutional: + ill appearing and + thin Eyes: PERRL, conjunctivae normal, anicteric sclerae ENMT: external ear and nose normal, oropharynx normal Neck: trachea midline, no thyromegaly Respiratory: no respiratory distress Auscultation: + diminished lung sounds (Bilaterally) and + crackles (Occasional crackles at the bases) Cardiovascular: Rate/Rhythm: regular rate and regular rhythm; not tachycardic Heart Sounds: normal S1 and normal S2; no murmur Extremities: no edema Gastrointestinal (Abdomen): Inspection/Auscultation: normal bowel sounds; abdomen not distended Percussion/Palpation: abdomen soft; abdomen nontender Musculoskeletal: Has contracture deformities involving the lower extremities Neurologic: Alert awake and oriented x3. Generally weak and can move all extremities Lymphatic: no cervical or axillary lymphadenopathy Results & Data Results & Data ([facility]) Vital Signs (Past 12 Hours) Vital Signs Temp Pulse Pulse Resp BP BP Pulse Ox 10/21/21 11:52 36.8 C 89 16 136/70 93 10/21/21 08:26 37.0 C 76 17 169/85 H 93 10/21/21 08:04 72 10/21/21 07:19 97 10/21/21 04:12 73 24 96 10/21/21 03:51 81 10/21/21 03:10 36.4 C L 73 16 164/82 H 97 Laboratory Results Short CBC 10/21/21 Range/Units 06:28 WBC 9.91 (4.8-10.8) K/uL Hgb 12.3 (12.0-16.0) g/dL Hct 38.0 (37-47) % Plt Count 437 H (130-400) K/uL BMP 10/21/21 06:28 Sodium 134 L Potassium 3.8 Chloride 95 L Carbon Dioxide 37 H BUN 21 Creatinine 0.64 Glucose 76 Calcium 9.3 Medications Administered Current Inpatient Medications Acetaminophen (Acetaminophen 325 Mg Tab) 650 mg PO Q4H PRN PRN Reason: Pain or Fever Stop: 11/19/21 02:03 Al Hydrox/Mg Hydrox/Simethicone (Aluminum/Magnesium Susp 30 Ml Udc) 15 ml PO Q4H PRN PRN Reason: Dyspepsia Stop: 11/19/21 02:03 Aspirin (Aspirin 81 Mg Ectab) 81 mg PO QAM [facility] Stop: 11/19/21 08:59 Last Admin: 10/21/21 08:25 Dose: 81 mg Documented by: Atorvastatin Calcium (Atorvastatin 10 Mg Tab) 10 mg PO QAM [facility] Stop: 11/19/21 08:59 Last Admin: 10/21/21 08:25 Dose: 10 mg Documented by: Bacitracin (Bacitracin Oint 15 Gm Tube) 1 appln EXT BID [facility] Stop: 11/19/21 08:59 Last Admin: 10/21/21 08:26 Dose: 1 appln Documented by: Cyclobenzaprine HCl (Cyclobenzaprine Hcl 5 Mg Tab) 5 mg PO BID [facility] Stop: 11/19/21 02:03 Last Admin: 10/21/21 08:25 Dose: 5 mg Documented by: Escitalopram Oxalate (Escitalopram Oxalate 20 Mg Tab) 20 mg PO QAM [facility] Stop: 11/19/21 08:59 Last Admin: 10/21/21 08:25 Dose: 20 mg Documented by: Fluticasone Furoate (Fluticasone Furoate 100mcg 14 Puffs/Inhaler) 1 puffs INH DAILY [facility] Stop: 11/19/21 08:59 Last Admin: 10/21/21 08:25 Dose: 1 puffs Documented by: Heparin Sodium (Porcine) (Heparin Sod 5,000 Unit/0.5 Ml Vial) 5,000 units SQ Q12 [facility] Stop: 11/19/21 02:03 Last Admin: 10/21/21 08:26 Dose: Not Given Documented by: Magnesium Hydroxide (Magnesium Hydroxide Susp 30 Ml Udc) 30 ml PO Q12H PRN PRN Reason: Constipation Stop: 11/19/21 02:03 Multivitamins/Minerals (Cerovite Adv Formula Tab) 1 tab PO DAILY [facility] Stop: 11/19/21 08:59 Last Admin: 10/21/21 08:25 Dose: 1 tab Documented by: Ondansetron HCl (Ondansetron Inj 2 Mg/Ml 2 Ml Vial) 4 mg IV Q6H PRN PRN Reason: Nausea Stop: 11/19/21 02:03 Oxybutynin Chloride (Oxybutynin Chloride Xl 5 Mg Tabcr) 5 mg PO DAILY [facility] Stop: 11/19/21 08:59 Last Admin: 10/21/21 08:25 Dose: 5 mg Documented by: Polyethylene Glycol (Polyethylene (Miralax) 17 Gm Pack) 17 gm PO DAILY PRN PRN Reason: Constipation Stop: 11/19/21 02:03 Umeclidinium/Vilanterol (Umeclidinium/Vilanterol 62.5/25mcg 7 Puffs/Inhaler) 1 puffs INH DAILY [facility] Stop: 11/19/21 08:59 Last Admin: 10/21/21 08:25 Dose: 1 puffs Documented by:
[2021-10-22] MEDS: ONDANSETRON INJ 2 MG/ML 2 ML VIAL IV PRN (01:11)
[2021-10-22] MEDS: amLODIPine BESYLATE 5 MG TAB PO SCH (04:46)
[2021-10-22] MEDS: ESCITALOPRAM OXALATE 20 MG TAB PO SCH (08:30)
[2021-10-22] MEDS: ATORVASTATIN 10 MG TAB PO SCH (08:30)
[2021-10-22] MEDS: CEROVITE ADV FORMULA TAB PO SCH (08:30)
[2021-10-22] MEDS: OXYBUTYNIN CHLORIDE XL 5 MG TABCR PO SCH (08:30)
[2021-10-22] MEDS: ASPIRIN 81 MG ECTAB PO SCH (08:30)
[2021-10-22] MEDS: BACITRACIN OINT 15 GM TUBE EXT SCH ×2 (08:30→21:44)
[2021-10-22] MEDS: FLUTICASONE FUROATE 100MCG 14 PUFFS/INHALER INH SCH (08:31)
[2021-10-22] MEDS: HEPARIN SOD 5,000 UNIT/0.5 ML VIAL SQ SCH ×2 (08:31→21:44)
[2021-10-22] MEDS: UMECLIDINIUM/VILANTEROL 62.5/25MCG 7 PUFFS/INHALER INH SCH (08:33)
[2021-10-22] MEDS: CYCLOBENZAPRINE HCL 5 MG TAB PO SCH ×2 (09:58→21:44)
--- NOTE | 2021-10-22 13:13 | Hospitalist Progress Note ---
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 Acute encephalopathy Hypercarbia, although pH reflects compensated state etiology unclear, ? infectious vs medication induced vs hypercarbia does not meet SIRS criteria obtain blood cultures and urine culture given hypercarbia will trial bipap, repeat abg in a.m. gentle IVF hold morphine and hydroxyzine CO2 level normalized this morning and the patient is back on nasal cannula oxygen Clearance of confusion and she is back to her baseline Seems to be at her baseline and saturating normally on 2 L nasal cannula oxygen Has had PT and recommendation was to go to rehab for short-term Discussed with the patient and the caregiver-want to pursue rehab for short- term. She has been feeling much better wants to go home and advised to stay tonight As she was advised by the therapist to go to rehab and she was agreeable as of yesterday We will discuss with the caregiver when she comes Hyperkalemia Hypercalcemia pt w/o ekg changes repeat lab at 2200 and in am. given gentle IVF known hyperparathyroidism Hyperkalemia and hypercalcemia have been normalized Labs remain unremarkable Chronic resp failure with hypoxia on home O2 COPD w/o exacerbation Tobacco abuse continue trelegy Strongly advised to quit smoking which may be the cause for her current deterioration No signs and or symptoms of exacerbation-no need to add any steroid Has been saturating normally on 2 L nasal cannula Denies any respiratory symptoms Chronic pain syndrome Scoliosis Lumbar spinal stenosis B/L lower ext contractures on chronic Morphine therapy bid prn will hold morphine for now given encephalopathy also hold hydroxyzine consult PT/OT to assist with ROM-awaiting PT and OT evaluation Flexeril 5mg bid to assist with muscle relaxation Hyperparathyroidism not on ca supplement or vit d repeat calcium Congenital single kidney monitor renal fxn Hx of splenectomy chronic thrombocytosis plt ct 438 DVT ppx: SQ heparin bid Dispo: tele PCP: Shannon FULL CODE Pt sole caregiver is Thuy Lehman, whom lives with pt, and is requesting updates Discussed with the caregiver likely discharge in a day or 2 Will need rehab- Admission and Anticipated Discharge Date Admission Date: October 19, 2021 Subjective 10/20/2021 The patient was seen and examined in medical telemetry unit She has been feeling much better and denies any significant symptoms She has been moving all of her extremities and back to her baseline CO2 level has been normalized and she has been saturating normally on 2 L nasal cannula 10/21/2021 The patient was seen and examined in medical telemetry unit She is back to her baseline Denies any significant symptoms and wants to go home PT recommended rehab and that was discussed with the caregiver 10/22/2021 The patient was seen and examined in medical telemetry unit She has been feeling much better and is out of bed one a chair She wants to go home but she was recommended rehab by the therapist She was advised to stay tonight and decide tomorrow for further action Review of Systems Review of Systems: All systems reviewed and are unremarkable except as noted below Physical Exam Physical Exam: Lying in bed comfortably Constitutional: + ill appearing and + thin Eyes: PERRL, conjunctivae normal, anicteric sclerae ENMT: external ear and nose normal, oropharynx normal Neck: trachea midline, no thyromegaly Respiratory: no respiratory distress Auscultation: + diminished lung sounds (Bilaterally) and + crackles (Occasional crackles at the bases) Cardiovascular: Rate/Rhythm: regular rate and regular rhythm; not tachycardic Heart Sounds: normal S1 and normal S2; no murmur Extremities: no edema Gastrointestinal (Abdomen): Inspection/Auscultation: normal bowel sounds; abdomen not distended Percussion/Palpation: abdomen soft; abdomen nontender Musculoskeletal: Has mild contracture deformity involving the lower extremities. Neurologic: moves all extremities; no focal motor deficits (But generally very weak) Lymphatic: no cervical or axillary lymphadenopathy Results & Data Results & Data ([facility]) Vital Signs (Past 12 Hours) Vital Signs Temp Pulse Pulse Resp BP BP Pulse Ox 10/22/21 08:30 88 06/26/22 08:26 36.7 C 96 H 18 137/68 95 10/22/21 03:31 36.9 C 89 20 182/83 H 96 Medications Administered Current Inpatient Medications Acetaminophen (Acetaminophen 325 Mg Tab) 650 mg PO Q4H PRN PRN Reason: Pain or Fever Stop: 11/19/21 02:03 Al Hydrox/Mg Hydrox/Simethicone (Aluminum/Magnesium Susp 30 Ml Udc) 15 ml PO Q4H PRN PRN Reason: Dyspepsia Stop: 11/19/21 02:03 Amlodipine Besylate (Amlodipine Besylate 5 Mg Tab) [facility]: 11/21/21 04:24 Last Admin: 10/22/21 04:46 Dose: 2.5 mg Documented by: Aspirin (Aspirin 81 Mg Ectab) [facility] Stop: 11/19/21 08:59 Last Admin: 10/22/21 08:30 Dose: 81 mg Documented by: Atorvastatin Calcium ([facility]orvastatin 10 Mg Tab) [facility] Stop: 11/19/21 08:59 Last Admin: 10/22/21 08:30 Dose: 10 mg Documented by: Bacitracin (Bacitracin Oint 15 Gm Tube) 1 appln EXT BID [facility] Stop: 11/19/21 08:59 Last Admin: 10/22/21 08:30 Dose: 1 appln Documented by: Cyclobenzaprine HCl (Cyclobenzaprine Hcl 5 Mg Tab) 5 mg PO BID [facility] Stop: 11/19/21 02:03 Last Admin: 10/22/21 09:58 Dose: 5 mg Documented by: Escitalopram Oxalate (Escitalopram Oxalate 20 Mg Tab) 20 mg PO QAM [facility] Stop: 11/19/21 08:59 Last Admin: 10/22/21 08:30 Dose: 20 mg Documented by: Fluticasone Furoate (Fluticasone Furoate 100mcg 14 Puffs/Inhaler) 1 puffs INH DAILY [facility] Stop: 11/19/21 08:59 Last Admin: 10/22/21 08:31 Dose: 1 puffs Documented by: Heparin Sodium (Porcine) (Heparin Sod 5,000 Unit/0.5 Ml Vial) 5,000 units SQ Q12 [facility] Stop: 11/19/21 02:03 Last Admin: 10/22/21 08:31 Dose: 5,000 units Documented by: Magnesium Hydroxide (Magnesium Hydroxide Susp 30 Ml Udc) 30 ml PO Q12H PRN PRN Reason: Constipation Stop: 11/19/21 02:03 Multivitamins/Minerals (Cerovite Adv Formula Tab) 1 tab PO DAILY [facility] Stop: 11/19/21 08:59 Last Admin: 10/22/21 08:30 Dose: 1 tab Documented by: Ondansetron HCl (Ondansetron Inj 2 Mg/Ml 2 Ml Vial) 4 mg IV Q6H PRN PRN Reason: Nausea Stop: 11/19/21 02:03 Last Admin: 10/22/21 01:11 Dose: 4 mg Documented by: Oxybutynin Chloride (Oxybutynin Chloride Xl 5 Mg Tabcr) 5 mg PO DAILY [facility] Stop: 11/19/21 08:59 Last Admin: 10/22/21 08:30 Dose: 5 mg Documented by: Polyethylene Glycol (Polyethylene (Miralax) 17 Gm Pack) 17 gm PO DAILY PRN PRN Reason: Constipation Stop: 11/19/21 02:03 Umeclidinium/Vilanterol (Umeclidinium/Vilanterol 62.5/25mcg 7 Puffs/Inhaler) 1 puffs INH DAILY [facility] Stop: 11/19/21 08:59 Last Admin: 10/22/21 08:33 Dose: 1 puffs Documented by:
[2021-10-23 06:59] LABS: Basophils # (auto) 0.01 K/uL (0-0.2); Basophils % (auto) 0.1 %; Hematocrit (blood only) 42.7 % (37-47); Hemoglobin 14.7 g/dL (12.0-16.0); Immature Granulocytes # (auto) 0.02 K/uL (0.00-0.02); Immature Granulocytes % (auto) 0.2 %; Lymphocytes # (auto) 1.95 K/uL (1.2-3.4); Lymphocytes % (auto) 18.7 %; Mean Corpuscular Hemoglobin 30.9 pg (25-34); Mean Corpuscular Hgb Conc 34.4 g/dL (32-36); Mean Corpuscular Volume 89.9 fL (80-100); Mean Platelet Volume 10.2 fL (7.4-10.4); Monocytes # (auto) 0.99 K/uL (0.11-0.59); Monocytes % (auto) 9.5 %; Neutrophils # (auto) 7.38 K/uL (1.4-6.5); Neutrophils % (auto) 70.5 %; Platelet Count 440 K/uL (130-400); RDW Coefficient of Variation 15.7 % (11.5-14.5); Red Blood Count 4.75 M/uL (4.2-5.4); White Blood Count 10.45 K/uL (4.8-10.8)
[2021-10-23 07:15] LABS: BUN Creatinine Ratio 17.8 (10-20); Calcium 10.6 mg/dl (8.5-10.1); Creatinine Clr Calc Pharmacy 31.9 ml/min; Est GFR (African American) 89.5 ml/min; Est GFR (Non-African American) 77.2 ml/min; Potassium 4.2 mmol/L (3.5-5.1)
[2021-10-23] MEDS: ATORVASTATIN 10 MG TAB PO SCH (08:18)
[2021-10-23] MEDS: amLODIPine BESYLATE 5 MG TAB PO SCH (08:18)
[2021-10-23] MEDS: ASPIRIN 81 MG ECTAB PO SCH (08:18)
[2021-10-23] MEDS: CYCLOBENZAPRINE HCL 5 MG TAB PO SCH ×2 (08:19→21:09)
[2021-10-23] MEDS: FLUTICASONE FUROATE 100MCG 14 PUFFS/INHALER INH SCH (08:19)
[2021-10-23] MEDS: ESCITALOPRAM OXALATE 20 MG TAB PO SCH (08:19)
[2021-10-23] MEDS: BACITRACIN OINT 15 GM TUBE EXT SCH ×2 (08:19→21:09)
[2021-10-23] MEDS: OXYBUTYNIN CHLORIDE XL 5 MG TABCR PO SCH (08:19)
[2021-10-23] MEDS: UMECLIDINIUM/VILANTEROL 62.5/25MCG 7 PUFFS/INHALER INH SCH (08:19)
[2021-10-23] MEDS: CEROVITE ADV FORMULA TAB PO SCH (08:19)
[2021-10-23] MEDS: HEPARIN SOD 5,000 UNIT/0.5 ML VIAL SQ SCH ×2 (08:20→21:10)
--- NOTE | 2021-10-23 14:10 | Hospitalist Progress Note ---
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 Acute encephalopathy Hypercarbia, although pH reflects compensated state etiology unclear, ? infectious vs medication induced vs hypercarbia does not meet SIRS criteria obtain blood cultures and urine culture given hypercarbia will trial bipap, repeat abg in a.m. gentle IVF hold morphine and hydroxyzine CO2 level normalized this morning and the patient is back on nasal cannula oxygen Clearance of confusion and she is back to her baseline Seems to be at her baseline and saturating normally on 2 L nasal cannula oxygen Has had PT and recommendation was to go to rehab for short-term Discussed with the patient and the caregiver-want to pursue rehab for short- term. She has been feeling much better wants to go home and advised to stay tonight As she was advised by the therapist to go to rehab and she was agreeable as of yesterday Remains stable and is back to her baseline Awaiting placement for rehab Hyperkalemia Hypercalcemia pt w/o ekg changes repeat lab at 2200 and in am. given gentle IVF known hyperparathyroidism Hyperkalemia and hypercalcemia have been normalized Labs remain unremarkable Chronic resp failure with hypoxia on home O2 COPD w/o exacerbation Tobacco abuse continue trelegy Strongly advised to quit smoking which may be the cause for her current deterioration No signs and or symptoms of exacerbation-no need to add any steroid Has been saturating normally on 2 L nasal cannula Denies any respiratory symptoms Chronic pain syndrome Scoliosis Lumbar spinal stenosis B/L lower ext contractures on chronic Morphine therapy bid prn will hold morphine for now given encephalopathy also hold hydroxyzine consult PT/OT to assist with ROM-awaiting PT and OT evaluation Flexeril 5mg bid to assist with muscle relaxation Hyperparathyroidism not on ca supplement or vit d repeat calcium-calcium level has been around 9.3-10.6 Congenital single kidney monitor renal fxn Hx of splenectomy chronic thrombocytosis plt ct 438 DVT ppx: SQ heparin bid Dispo: tele PCP: Shannon FULL CODE Pt sole caregiver is Thuy Lehman, whom lives with pt, and is requesting updates Discussed with the caregiver Will need rehab-awaiting placement Admission and Anticipated Discharge Date Admission Date: October 19, 2021 Subjective 10/20/2021 The patient was seen and examined in medical telemetry unit She has been feeling much better and denies any significant symptoms She has been moving all of her extremities and back to her baseline CO2 level has been normalized and she has been saturating normally on 2 L nasal cannula 10/21/2021 The patient was seen and examined in medical telemetry unit She is back to her baseline Denies any significant symptoms and wants to go home PT recommended rehab and that was discussed with the caregiver 10/22/2021 The patient was seen and examined in medical telemetry unit She has been feeling much better and is out of bed one a chair She wants to go home but she was recommended rehab by the therapist She was advised to stay tonight and decide tomorrow for further action 10/23/2021 The patient was seen and examined in medical telemetry unit She has been stable and is back to her baseline Denies any increasing shortness of breath, cough or chest pain Awaiting placement Review of Systems Review of Systems: All systems reviewed and are unremarkable except as noted below Physical Exam Physical Exam: Lying in bed comfortably Constitutional: + ill appearing and + thin Eyes: PERRL, conjunctivae normal, anicteric sclerae ENMT: external ear and nose normal, oropharynx normal Neck: trachea midline, no thyromegaly Respiratory: no respiratory distress Auscultation: + diminished lung sounds (Bilaterally) and + crackles (Occasional crackles at the bases) Cardiovascular: Rate/Rhythm: regular rate and regular rhythm; not tachycardic Heart Sounds: normal S1 and normal S2; no murmur Extremities: no edema Gastrointestinal (Abdomen): Inspection/Auscultation: normal bowel sounds; abdomen not distended Percussion/Palpation: abdomen soft; abdomen nontender Musculoskeletal: No acute arthritis in any joint. Had contracture deformities involving the extremities mostly in the lower Neurologic: moves all extremities; no focal motor deficits (But generally very weak) Lymphatic: no cervical or axillary lymphadenopathy Results & Data Results & Data ([facility]) Vital Signs (Past 12 Hours) Vital Signs Temp Pulse Resp BP Pulse Ox 10/23/21 12:08 36.8 C 100 H 19 138/91 97 10/23/21 08:26 36.8 C 92 H 19 168/88 H 94 10/23/21 04:47 36.9 C 92 H 16 174/82 H 94 Laboratory Results Short CBC 10/23/21 Range/Units 05:52 WBC 10.45 (4.8-10.8) K/uL Hgb 14.7 (12.0-16.0) g/dL Hct 42.7 (37-47) % Plt Count 440 H (130-400) K/uL BMP 10/23/21 05:52 Sodium 131 L Potassium 4.2 Chloride 92 L Carbon Dioxide 37 H BUN 13 Creatinine 0.73 Glucose 91 Calcium 10.6 H Medications Administered Current Inpatient Medications Acetaminophen (Acetaminophen 325 Mg Tab) 650 mg PO Q4H PRN PRN Reason: Pain or Fever Stop: 11/19/21 02:03 Al Hydrox/Mg Hydrox/Simethicone (Aluminum/Magnesium Susp 30 Ml Udc) 15 ml PO Q4H PRN PRN Reason: Dyspepsia Stop: 11/19/21 02:03 Amlodipine Besylate (Amlodipine Besylate 5 Mg Tab) 2.5 mg PO [facility] Stop: 11/21/21 04:24 Last Admin: 10/23/21 08:18 Dose: 2.5 mg Documented by: Aspirin (Aspirin 81 Mg Ectab) [facility]: 11/19/21 08:59 Last Admin: 10/23/21 08:18 Dose: 81 mg Documented by: Atorvastatin Calcium (Atorvastatin 10 Mg Tab) [facility] [place] Stop: 11/19/21 08:59 Last Admin: 10/23/21 08:18 Dose: 10 mg Documented by: Bacitracin (Bacitracin Oint 15 Gm Tube) 1 appln EXT BID [facility] Stop: 11/19/21 08:59 Last Admin: 10/23/21 08:19 Dose: 1 appln Documented by: Cyclobenzaprine HCl (Cyclobenzaprine Hcl 5 Mg Tab) 5 mg PO BID [facility] Stop: 11/19/21 02:03 Last Admin: 10/23/21 08:19 Dose: 5 mg Documented by: Escitalopram Oxalate (Escitalopram Oxalate 20 Mg Tab) 20 mg PO QAM [facility] Stop: 11/19/21 08:59 Last Admin: 10/23/21 08:19 Dose: 20 mg Documented by: Fluticasone Furoate (Fluticasone Furoate 100mcg 14 Puffs/Inhaler) 1 puffs INH DAILY [facility] Stop: 11/19/21 08:59 Last Admin: 10/23/21 08:19 Dose: 1 puffs Documented by: Heparin Sodium (Porcine) (Heparin Sod 5,000 Unit/0.5 Ml Vial) 5,000 units SQ Q12 [facility] Stop: 11/19/21 02:03 Last Admin: 10/23/21 08:20 Dose: Not Given Documented by: Magnesium Hydroxide (Magnesium Hydroxide Susp 30 Ml Udc) 30 ml PO Q12H PRN PRN Reason: Constipation Stop: 11/19/21 02:03 Multivitamins/Minerals (Cerovite Adv Formula Tab) 1 tab PO DAILY [facility] Stop: 11/19/21 08:59 Last Admin: 10/23/21 08:19 Dose: 1 tab Documented by: Ondansetron HCl (Ondansetron Inj 2 Mg/Ml 2 Ml Vial) 4 mg IV Q6H PRN PRN Reason: Nausea Stop: 11/19/21 02:03 Last Admin: 10/22/21 01:11 Dose: 4 mg Documented by: Oxybutynin Chloride (Oxybutynin Chloride Xl 5 Mg Tabcr) 5 mg PO DAILY [facility] Stop: 11/19/21 08:59 Last Admin: 10/23/21 08:19 Dose: 5 mg Documented by: Polyethylene Glycol (Polyethylene (Miralax) 17 Gm Pack) 17 gm PO DAILY PRN PRN Reason: Constipation Stop: 11/19/21 02:03 Umeclidinium/Vilanterol (Umeclidinium/Vilanterol 62.5/25mcg 7 Puffs/Inhaler) 1 puffs INH DAILY [facility] Stop: 11/19/21 08:59 Last Admin: 10/23/21 08:19 Dose: 1 puffs Documented by:
[2021-10-23] MEDS: ONDANSETRON INJ 2 MG/ML 2 ML VIAL IV PRN (17:50)
[2021-10-23] MEDS: ACETAMINOPHEN 325 MG TAB PO PRN (17:50)
[2021-10-24] MEDS: UMECLIDINIUM/VILANTEROL 62.5/25MCG 7 PUFFS/INHALER INH SCH (08:33)
[2021-10-24] MEDS: CYCLOBENZAPRINE HCL 5 MG TAB PO SCH ×2 (08:34→20:35)
[2021-10-24] MEDS: FLUTICASONE FUROATE 100MCG 14 PUFFS/INHALER INH SCH (08:34)
[2021-10-24] MEDS: BACITRACIN OINT 15 GM TUBE EXT SCH ×2 (08:35→20:34)
[2021-10-24] MEDS: CEROVITE ADV FORMULA TAB PO SCH (08:35)
[2021-10-24] MEDS: HEPARIN SOD 5,000 UNIT/0.5 ML VIAL SQ SCH ×2 (08:35→20:35)
[2021-10-24] MEDS: amLODIPine BESYLATE 5 MG TAB PO SCH (08:36)
[2021-10-24] MEDS: ATORVASTATIN 10 MG TAB PO SCH (08:36)
[2021-10-24] MEDS: OXYBUTYNIN CHLORIDE XL 5 MG TABCR PO SCH (08:36)
[2021-10-24] MEDS: ASPIRIN 81 MG ECTAB PO SCH (08:36)
[2021-10-24] MEDS: ESCITALOPRAM OXALATE 20 MG TAB PO SCH (08:36)
--- NOTE | 2021-10-24 16:56 | Hospitalist Progress Note ---
Date of Service October 24, 2021 Assessment & Plan (1) Encephalopathy: (2) Chronic respiratory failure with hypoxia, on home O2 therapy: (3) COPD (chronic obstructive pulmonary disease): (4) Hypercarbia: (5) Chronic pain syndrome: (6) Hyperkalemia: (7) Hypercalcemia: Plan: This is an 81 yr old F who has significant past medical history of chronic hypoxic respiratory failure on home oxygen therapy at 2 LPM secondary to COPD, history of HTN, HLD, hyperparathyroidism, pulmonary hypertension, moderate mitral regurg, congenital single kidney, osteoporosis, history of splenectomy, 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 Acute encephalopathy Hypercarbia, although pH reflects compensated state etiology unclear, ? infectious vs medication induced vs hypercarbia does not meet SIRS criteria obtain blood cultures and urine culture given hypercarbia will trial bipap, repeat abg in a.m. gentle IVF hold morphine and hydroxyzine CO2 level normalized this morning and the patient is back on nasal cannula oxygen Clearance of confusion and she is back to her baseline Seems to be at her baseline and saturating normally on 2 L nasal cannula oxygen Has had PT and recommendation was to go to rehab for short-term Discussed with the patient and the caregiver-want to pursue rehab for short- term. She has been feeling much better wants to go home and advised to stay tonight As she was advised by the therapist to go to rehab and she was agreeable as of yesterday Remains stable and is back to her baseline Awaiting placement for rehab No new symptoms Hyperkalemia Hypercalcemia pt w/o ekg changes repeat lab at 2200 and in am. given gentle IVF known hyperparathyroidism Hyperkalemia and hypercalcemia have been normalized Labs remain unremarkable We will recheck labs tomorrow Chronic resp failure with hypoxia on home O2 COPD w/o exacerbation Tobacco abuse continue trelegy Strongly advised to quit smoking which may be the cause for her current deterioration No signs and or symptoms of exacerbation-no need to add any steroid Has been saturating normally on 2 L nasal cannula Denies any respiratory symptoms Saturating normally on 2 L nasal cannula Chronic pain syndrome Scoliosis Lumbar spinal stenosis B/L lower ext contractures on chronic Morphine therapy bid prn will hold morphine for now given encephalopathy also hold hydroxyzine consult PT/OT to assist with ROM-awaiting PT and OT evaluation Flexeril 5mg bid to assist with muscle relaxation No motor spasm Hyperparathyroidism not on ca supplement or vit d repeat calcium-calcium level has been around 9.3-10.6 Congenital single kidney monitor renal fxn Hx of splenectomy chronic thrombocytosis plt ct 438 DVT ppx: SQ heparin bid Dispo: tele PCP: Shannon FULL CODE Pt sole caregiver is Thuy Lehman, whom lives with pt, and is requesting updates Discussed with the caregiver Will need rehab-awaiting placement Admission and Anticipated Discharge Date Admission Date: October 19, 2021 Subjective 10/20/2021 The patient was seen and examined in medical telemetry unit She has been feeling much better and denies any significant symptoms She has been moving all of her extremities and back to her baseline CO2 level has been normalized and she has been saturating normally on 2 L nasal cannula 10/21/2021 The patient was seen and examined in medical telemetry unit She is back to her baseline Denies any significant symptoms and wants to go home PT recommended rehab and that was discussed with the caregiver 10/22/2021 The patient was seen and examined in medical telemetry unit She has been feeling much better and is out of bed one a chair She wants to go home but she was recommended rehab by the therapist She was advised to stay tonight and decide tomorrow for further action 10/23/2021 The patient was seen and examined in medical telemetry unit She has been stable and is back to her baseline Denies any increasing shortness of breath, cough or chest pain Awaiting placement 10/24/2021 The patient was seen and examined in medical telemetry unit She has been stable and denies any significant symptoms She denies any chest pain, shortness of breath or palpitation She has been waiting to go to rehab Review of Systems Review of Systems: All systems reviewed and are unremarkable except as noted below Physical Exam Physical Exam: Lying in bed comfortably Constitutional: + ill appearing and + thin Eyes: PERRL, conjunctivae normal, anicteric sclerae ENMT: external ear and nose normal, oropharynx normal Neck: trachea midline, no thyromegaly Respiratory: no respiratory distress Auscultation: + diminished lung sounds (Bilaterally) and + crackles (Occasional crackles at the bases) Cardiovascular: Rate/Rhythm: regular rate and regular rhythm; not tachycardic Heart Sounds: normal S1 and normal S2; no murmur Extremities: no edema Gastrointestinal (Abdomen): Inspection/Auscultation: normal bowel sounds; abdomen not distended Percussion/Palpation: abdomen soft; abdomen nontender Musculoskeletal: Has flexural deformities involving the lower extremities. No acute arthritis Neurologic: moves all extremities; no focal motor deficits (But generally very weak) Lymphatic: no cervical or axillary lymphadenopathy Results & Data Results & Data ([facility]) Vital Signs (Past 12 Hours) Vital Signs Temp Pulse Pulse Resp BP Pulse Ox 10/24/21 16:22 36.7 C 101 H 18 146/85 H 96 10/24/21 15:35 100 H 10/24/21 12:37 36.8 C 55 L 18 143/93 H 95 10/24/21 08:36 36.7 C 96 H 18 144/90 H 99 10/24/21 07:30 88 Medications Administered Current Inpatient Medications Acetaminophen (Acetaminophen 325 Mg Tab) 650 mg PO Q4H PRN PRN Reason: Pain or Fever Stop: 11/19/21 02:03 Last Admin: 10/23/21 17:50 Dose: 650 mg Documented by: Al Hydrox/Mg Hydrox/Simethicone (Aluminum/Magnesium Susp 30 Ml Udc) 15 ml PO Q4H PRN PRN Reason: Dyspepsia Stop: 11/19/21 02:03 Amlodipine Besylate (Amlodipine Besylate 5 Mg Tab) 2.5 mg PO [facility] Stop: 11/21/21 04:24 Last Admin: 10/24/21 08:36 Dose: 2.5 mg Documented by: Aspirin (Aspirin 81 Mg Ectab) 81 mg PO [facility] Stop: 11/19/21 08:59 Last Admin: 10/24/21 08:36 Dose: 81 mg Documented by: Atorvastatin Calcium (Atorvastatin 10 Mg Tab) 10 mg PO [facility] Stop: 11/19/21 08:59 Last Admin: 10/24/21 08:36 Dose: 10 mg Documented by: Bacitracin (Bacitracin Oint 15 Gm Tube) 1 appln EXT BID [facility] Stop: 11/19/21 08:59 Last Admin: 10/24/21 08:35 Dose: 1 appln Documented by: Cyclobenzaprine HCl (Cyclobenzaprine Hcl 5 Mg Tab) 5 mg PO BID [facility] Stop: 11/19/21 02:03 Last Admin: 10/24/21 08:34 Dose: 5 mg Documented by: Escitalopram Oxalate (Escitalopram Oxalate 20 Mg Tab) 20 mg PO QAM [facility] Stop: 11/19/21 08:59 Last Admin: 10/24/21 08:36 Dose: 20 mg Documented by: Fluticasone Furoate (Fluticasone Furoate 100mcg 14 Puffs/Inhaler) 1 puffs INH DAILY [facility] Stop: 11/19/21 08:59 Last Admin: 10/24/21 08:34 Dose: 1 puffs Documented by: Heparin Sodium (Porcine) (Heparin Sod 5,000 Unit/0.5 Ml Vial) 5,000 units SQ Q12 [facility] Stop: 11/19/21 02:03 Last Admin: 10/24/21 08:35 Dose: 5,000 units Documented by: Magnesium Hydroxide (Magnesium Hydroxide Susp 30 Ml Udc) 30 ml PO Q12H PRN PRN Reason: Constipation Stop: 11/19/21 02:03 Multivitamins/Minerals (Cerovite Adv Formula Tab) 1 tab PO DAILY [facility] Stop: 11/19/21 08:59 Last Admin: 10/24/21 08:35 Dose: 1 tab Documented by: Ondansetron HCl (Ondansetron Inj 2 Mg/Ml 2 Ml Vial) 4 mg IV Q6H PRN PRN Reason: Nausea Stop: 11/19/21 02:03 Last Admin: 10/23/21 17:50 Dose: 4 mg Documented by: Oxybutynin Chloride (Oxybutynin Chloride Xl 5 Mg Tabcr) 5 mg PO DAILY [facility] Stop: 11/19/21 08:59 Last Admin: 10/24/21 08:36 Dose: 5 mg Documented by: Polyethylene Glycol (Polyethylene (Miralax) 17 Gm Pack) 17 gm PO DAILY PRN PRN Reason: Constipation Stop: 11/19/21 02:03 Umeclidinium/Vilanterol (Umeclidinium/Vilanterol 62.5/25mcg 7 Puffs/Inhaler) 1 puffs INH DAILY [facility] Stop: 11/19/21 08:59 Last Admin: 10/24/21 08:33 Dose: 1 puffs Documented by:
[2021-10-25] MEDS: ONDANSETRON INJ 2 MG/ML 2 ML VIAL IV PRN (03:21)
[2021-10-25 06:23] LABS: Basophils # (auto) 0.02 K/uL (0-0.2); Basophils % (auto) 0.2 %; Eosinophils # (auto) 0.26 K/uL (0-0.5); Eosinophils % (auto) 2.1 %; Hematocrit (blood only) 40.2 % (37-47); Hemoglobin 13.6 g/dL (12.0-16.0); Immature Granulocytes # (auto) 0.03 K/uL (0.00-0.02); Immature Granulocytes % (auto) 0.2 %; Lymphocytes # (auto) 1.86 K/uL (1.2-3.4); Lymphocytes % (auto) 14.7 %; Mean Corpuscular Hemoglobin 30.8 pg (25-34); Mean Corpuscular Hgb Conc 33.8 g/dL (32-36); Mean Corpuscular Volume 91.2 fL (80-100); Mean Platelet Volume 10.1 fL (7.4-10.4); Monocytes # (auto) 0.85 K/uL (0.11-0.59); Monocytes % (auto) 6.7 %; Neutrophils % (auto) 76.1 %; Platelet Count 388 K/uL (130-400); RDW Coefficient of Variation 15.4 % (11.5-14.5); Red Blood Count 4.41 M/uL (4.2-5.4); White Blood Count 12.62 K/uL (4.8-10.8)
[2021-10-25 06:32] LABS: BUN Creatinine Ratio 21.2 (10-20); Calcium 9.5 mg/dl (8.5-10.1); Creatinine Clr Calc Pharmacy 23.1 ml/min; Est GFR (African American) 61.9 ml/min; Est GFR (Non-African American) 53.4 ml/min; Potassium 3.9 mmol/L (3.5-5.1)
[2021-10-25] MEDS: UMECLIDINIUM/VILANTEROL 62.5/25MCG 7 PUFFS/INHALER INH SCH (07:53)
[2021-10-25] MEDS: FLUTICASONE FUROATE 100MCG 14 PUFFS/INHALER INH SCH (07:53)
[2021-10-25] MEDS: BACITRACIN OINT 15 GM TUBE EXT SCH ×2 (07:54→20:48)
[2021-10-25] MEDS: HEPARIN SOD 5,000 UNIT/0.5 ML VIAL SQ SCH ×2 (07:54→20:48)
[2021-10-25] MEDS: ASPIRIN 81 MG ECTAB PO SCH (07:55)
[2021-10-25] MEDS: ATORVASTATIN 10 MG TAB PO SCH (07:55)
[2021-10-25] MEDS: ESCITALOPRAM OXALATE 20 MG TAB PO SCH (07:55)
[2021-10-25] MEDS: CEROVITE ADV FORMULA TAB PO SCH (07:55)
[2021-10-25] MEDS: CYCLOBENZAPRINE HCL 5 MG TAB PO SCH ×2 (07:55→20:47)
[2021-10-25] MEDS: amLODIPine BESYLATE 5 MG TAB PO SCH (07:56)
[2021-10-25] MEDS: OXYBUTYNIN CHLORIDE XL 5 MG TABCR PO SCH (07:56)
[2021-10-25] MEDS: ACETAMINOPHEN 325 MG TAB PO PRN (12:37)
--- NOTE | 2021-10-25 15:12 | Hospitalist Progress Note ---
Date of Service October 25, 2021 Assessment & Plan (1) Encephalopathy: (2) Chronic respiratory failure with hypoxia, on home O2 therapy: (3) COPD (chronic obstructive pulmonary disease): (4) Hypercarbia: (5) Chronic pain syndrome: (6) Hyperkalemia: (7) Hypercalcemia: Plan: This is an 81 yr old F who has significant past medical history of chronic hypoxic respiratory failure on home oxygen therapy at 2 LPM secondary to COPD, history of HTN, HLD, hyperparathyroidism, pulmonary hypertension, moderate mitral regurg, congenital single kidney, osteoporosis, history of splenectomy, 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 Acute encephalopathy Hypercarbia, although pH reflects compensated state etiology unclear, ? infectious vs medication induced vs hypercarbia does not meet SIRS criteria obtain blood cultures and urine culture given hypercarbia will trial bipap, repeat abg in a.m. gentle IVF hold morphine and hydroxyzine CO2 level normalized this morning and the patient is back on nasal cannula oxygen Clearance of confusion and she is back to her baseline Seems to be at her baseline and saturating normally on 2 L nasal cannula oxygen Has had PT and recommendation was to go to rehab for short-term Discussed with the patient and the caregiver-want to pursue rehab for short- term. She has been feeling much better wants to go home and advised to stay tonight As she was advised by the therapist to go to rehab and she was agreeable as of yesterday Remains stable and is back to her baseline Awaiting placement for rehab No new symptoms Hyperkalemia Hypercalcemia pt w/o ekg changes repeat lab at 2200 and in am. given gentle IVF known hyperparathyroidism Hyperkalemia and hypercalcemia have been normalized Labs remain unremarkable We will recheck labs tomorrow Chronic resp failure with hypoxia on home O2 COPD w/o exacerbation Tobacco abuse continue trelegy Strongly advised to quit smoking which may be the cause for her current deterioration No signs and or symptoms of exacerbation-no need to add any steroid Has been saturating normally on 2 L nasal cannula Denies any respiratory symptoms Saturating normally on 2 L nasal cannula Chronic pain syndrome Scoliosis Lumbar spinal stenosis B/L lower ext contractures on chronic Morphine therapy bid prn will hold morphine for now given encephalopathy also hold hydroxyzine consult PT/OT to assist with ROM-awaiting PT and OT evaluation Flexeril 5mg bid to assist with muscle relaxation No motor spasm Hyperparathyroidism not on ca supplement or vit d repeat calcium-calcium level has been around 9.3-10.6 Congenital single kidney monitor renal fxn Hx of splenectomy chronic thrombocytosis plt ct 438 DVT ppx: SQ heparin bid Dispo: tele PCP: Shannon FULL CODE Pt sole caregiver is Thuy Lehman, whom lives with pt, and is requesting updates Discussed with the caregiver Will need rehab-awaiting placement Admission and Anticipated Discharge Date Admission Date: October 19, 2021 Subjective 10/20/2021 The patient was seen and examined in medical telemetry unit She has been feeling much better and denies any significant symptoms She has been moving all of her extremities and back to her baseline CO2 level has been normalized and she has been saturating normally on 2 L nasal cannula 10/21/2021 The patient was seen and examined in medical telemetry unit She is back to her baseline Denies any significant symptoms and wants to go home PT recommended rehab and that was discussed with the caregiver 10/22/2021 The patient was seen and examined in medical telemetry unit She has been feeling much better and is out of bed one a chair She wants to go home but she was recommended rehab by the therapist She was advised to stay tonight and decide tomorrow for further action 10/23/2021 The patient was seen and examined in medical telemetry unit She has been stable and is back to her baseline Denies any increasing shortness of breath, cough or chest pain Awaiting placement 10/24/2021 The patient was seen and examined in medical telemetry unit She has been stable and denies any significant symptoms She denies any chest pain, shortness of breath or palpitation She has been waiting to go to rehab Results & Data Results & Data ([facility]) Vital Signs (Past 12 Hours) Vital Signs Temp Pulse Pulse Resp BP Pulse Ox 10/25/21 14:59 93 H 10/25/21 12:01 36.7 C 63 18 128/76 95 10/25/21 07:20 88 10/25/21 06:53 36.3 C L 61 18 126/57 L 98 10/25/21 04:09 36.5 C 94 H 20 103/68 100 Laboratory Results Short CBC 10/25/21 Range/Units 05:49 WBC 12.62 H (4.8-10.8) K/uL Hgb 13.6 (12.0-16.0) g/dL Hct 40.2 (37-47) % Plt Count 388 (130-400) K/uL BMP 10/25/21 05:49 Sodium 130 L Potassium 3.9 Chloride 95 L Carbon Dioxide 32 BUN 21 Creatinine 0.99 Glucose 95 Calcium 9.5 Medications Administered Current Inpatient Medications Acetaminophen (Acetaminophen 325 Mg Tab) 650 mg PO Q4H PRN PRN Reason: Pain or Fever Stop: 11/19/21 02:03 Last Admin: 10/25/21 12:37 Dose: 650 mg Documented by: Al Hydrox/Mg Hydrox/Simethicone (Aluminum/Magnesium Susp 30 Ml Udc) 15 ml PO Q4H PRN PRN Reason: Dyspepsia Stop: 11/19/21 02:03 Amlodipine Besylate (Amlodipine Besylate 5 Mg Tab) [facility] [place] 11/21/21 04:24 Last Admin: 10/25/21 07:56 Dose: 2.5 mg Documented by: Aspirin (Aspirin 81 Mg Ectab) [facility] [place] Stop: 11/19/21 08:59 Last Admin: 10/25/21 07:55 Dose: 81 mg Documented by: Atorvastatin Calcium (Atorvastatin 10 Mg Tab) 10 mg PO QAM [facility] Stop: 11/19/21 08:59 Last Admin: 10/25/21 07:55 Dose: 10 mg Documented by: Bacitracin (Bacitracin Oint 15 Gm Tube) 1 appln EXT BID [facility] Stop: 11/19/21 08:59 Last Admin: 10/25/21 07:54 Dose: 1 appln Documented by: Cyclobenzaprine HCl (Cyclobenzaprine Hcl 5 Mg Tab) 5 mg PO BID [facility] Stop: 11/19/21 02:03 Last Admin: 10/25/21 07:55 Dose: 5 mg Documented by: Escitalopram Oxalate (Escitalopram Oxalate 20 Mg Tab) 20 mg PO QAM [facility] Stop: 11/19/21 08:59 Last Admin: 10/25/21 07:55 Dose: 20 mg Documented by: Fluticasone Furoate (Fluticasone Furoate 100mcg 14 Puffs/Inhaler) 1 puffs INH DAILY [facility] Stop: 11/19/21 08:59 Last Admin: 10/25/21 07:53 Dose: 1 puffs Documented by: Heparin Sodium (Porcine) (Heparin Sod 5,000 Unit/0.5 Ml Vial) 5,000 units SQ Q12 [facility] Stop: 11/19/21 02:03 Last Admin: 10/25/21 07:54 Dose: 5,000 units Documented by: Magnesium Hydroxide (Magnesium Hydroxide Susp 30 Ml Udc) 30 ml PO Q12H PRN PRN Reason: Constipation Stop: 11/19/21 02:03 Multivitamins/Minerals (Cerovite Adv Formula Tab) 1 tab PO DAILY [facility] Stop: 11/19/21 08:59 Last Admin: 10/25/21 07:55 Dose: 1 tab Documented by: Ondansetron HCl (Ondansetron Inj 2 Mg/Ml 2 Ml Vial) 4 mg IV Q6H PRN PRN Reason: Nausea Stop: 11/19/21 02:03 Last Admin: 10/25/21 03:21 Dose: 4 mg Documented by: Oxybutynin Chloride (Oxybutynin Chloride Xl 5 Mg Tabcr) 5 mg PO DAILY [facility] Stop: 11/19/21 08:59 Last Admin: 10/25/21 07:56 Dose: 5 mg Documented by: Polyethylene Glycol (Polyethylene (Miralax) 17 Gm Pack) 17 gm PO DAILY PRN PRN Reason: Constipation Stop: 11/19/21 02:03 Umeclidinium/Vilanterol (Umeclidinium/Vilanterol 62.5/25mcg 7 Puffs/Inhaler) 1 puffs INH DAILY [facility] Stop: 11/19/21 08:59 Last Admin: 10/25/21 07:53 Dose: 1 puffs Documented by:
[2021-10-25] MEDS ORDERED: ALBUT/IPRATROP 3MG/0.5MG NEB 3 ML VIAL NEB STA (18:24)
[2021-10-25] MEDS ORDERED: ALBUT/IPRATROP 3MG/0.5MG NEB 3 ML VIAL NEB PRN (18:32)
--- NOTE | 2021-10-25 18:55 | XRay Report ---
XR chest 1V portable HISTORY: 81 years-old Female acute SOB acute shortness of breath COMPARISON: Chest radiograph 10/19/2021 TECHNIQUE: Portable AP view of the chest FINDINGS: The cardiomediastinal and hilar silhouettes are within normal limits. Atherosclerosis of the thoracic aorta. The lungs are hyperinflated. Emphysema with chronic interstitial coarsening. There is no pneu mothorax, pleural effusion, airspace consolidation or overt pulmonary edema. Surgical clips of the up per abdomen. Degenerative changes of the shoulders and spine with sigmoidal thoracolumbar scoliosis. IMPRESSION: Emphysema without acute process. ACT 112: Negative or not required by law. The above report was generated using voice recognition software. It may contain grammatical, syntax o r spelling errors. Electronically signed by: Dajuan Og M.D. 10/25/2021 6:54 PM
[2021-10-25] MEDS ORDERED: ALBUT/IPRATROP 3MG/0.5MG NEB 3 ML VIAL NEB SCH (19:00)
[2021-10-25] MEDS ORDERED: ALBUTEROL 0.083% NEBU SOLN 3 ML VIAL NEB STA (19:01)
[2021-10-25] MEDS: MAGNESIUM SULFATE / D5W 1 GM/100 ML BAG IV SCH (23:00)
[2021-10-26] MEDS: MAGNESIUM SULFATE / D5W 1 GM/100 ML BAG IV SCH (01:00)
[2021-10-26] MEDS: CEROVITE ADV FORMULA TAB PO SCH (08:48)
[2021-10-26] MEDS: ATORVASTATIN 10 MG TAB PO SCH (08:49)
[2021-10-26] MEDS: ESCITALOPRAM OXALATE 20 MG TAB PO SCH (08:49)
[2021-10-26] MEDS: ASPIRIN 81 MG ECTAB PO SCH (08:49)
[2021-10-26] MEDS: amLODIPine BESYLATE 5 MG TAB PO SCH (08:49)
[2021-10-26] MEDS: UMECLIDINIUM/VILANTEROL 62.5/25MCG 7 PUFFS/INHALER INH SCH (08:50)
[2021-10-26] MEDS: HEPARIN SOD 5,000 UNIT/0.5 ML VIAL SQ SCH (08:50)
[2021-10-26] MEDS: FLUTICASONE FUROATE 100MCG 14 PUFFS/INHALER INH SCH (08:50)
[2021-10-26] MEDS: BACITRACIN OINT 15 GM TUBE EXT SCH (08:50)
[2021-10-26] MEDS: CYCLOBENZAPRINE HCL 5 MG TAB PO SCH (08:50)
[2021-10-26] MEDS: OXYBUTYNIN CHLORIDE XL 5 MG TABCR PO SCH (08:51)
[2021-10-26] MEDS ORDERED: COVID-19 VACC, TRIS(PFIZER)/PF 30 MCG/0.3 ML VIAL IM ONE (11:21)
[2021-10-26 12:23] VITALS: O2SAT 97
--- NOTE | 2021-10-26 12:51 | Discharge Summary ---
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 Caregiver is at bedside. Patient unable to give accurate history due to underlying cognition. Caregiver at bedside states she has been caring for patient for over the past 4 years. She does have a daughter who is not in the area and does not engage in patient care. Patient is bedbound due to lumbar spinal stenosis and arthritis. Over the past 2 months caregiver feels she has been more confused off and on; however, today it was much worse. Patient has chronic low back pain and bilateral leg pain. Today patient's legs became contracted and caregiver unable to assist patient and moving them. Because of this they came to ER. She denies any documented fever at home. Patient has been compliant with her Trelegy and oxygen. Caregiver has not noticed any audible wheezing or coughing. She feels her appetite has otherwise been normal and denies any diarrhea. ROS otherwise limited from patient. Only medication change is 2 months ago she was taking lasix because of swelling in feet, but is now off lasix. She also is taking hydroxyzine 25mg about once a day. In ED patient remained hemodynamically stable. She did have mild elevation in temperature at 37.7. Her WBC was 10.90. Her platelet count was 438. An ABG was performed which showed a pH of 7.41 and elevated CO2 at 74, potassium elevated at 5.4, anion gap -1, BUN 25, calcium 10.7. She received IV fluid and IV lorazepam in the ED. Caregiver bedside feels lorazepam did help relax her a little bit. Principal Diagnosis acute on chronic respiratory failure with hypercarbia COPD exacerbation cachexia Acute metabolic encephalopathy-resolved Discharge Data Allergies Allergy/AdvReac Type Severity Reaction Status Date / Time levofloxacin [From Levaquin] Allergy Severe airway Verified 10/19/21 20:02 edema Penicillins Allergy Unknown hives Unverified 10/27/19 09:19 procaine Allergy Unknown SWELLING Verified 10/27/19 09:19 codeine AdvReac Unknown GI UPSET Unverified 10/27/19 09:19 lidocaine AdvReac Unknown Verified 10/19/21 20:03 Consultations 10/19/21 18:05 ED Decision to Admit Stat 10/25/21 19:06 Consult Palliative Care Routine Ordered Studies 10/19/21 16:03 CT head/brain wo con Stat CT lumbar spine wo con Stat Hospital Course (1) Encephalopathy: (2) Chronic respiratory failure with hypoxia, on home O2 therapy: (3) COPD (chronic obstructive pulmonary disease): (4) Hypercarbia: (5) Chronic pain syndrome: (6) Hyperkalemia: (7) Hypercalcemia: (8) Acute and chronic respiratory failure: (9) Cachexia: (10) Acute metabolic encephalopathy: This is an 81 yr old F who has significant past medical history of chronic hypoxic respiratory failure on home oxygen therapy at 2 LPM secondary to COPD, history of HTN, HLD, hyperparathyroidism, pulmonary hypertension, moderate mitral regurg, congenital single kidney, osteoporosis, history of splenectomy, 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 Acute encephalopathy Hypercarbia, although pH reflects compensated state etiology unclear, ? infectious vs medication induced vs hypercarbia does not meet SIRS criteria obtain blood cultures and urine culture given hypercarbia will trial bipap, repeat abg in a.m. gentle IVF hold morphine and hydroxyzine CO2 level normalized this morning and the patient is back on nasal cannula oxygen Clearance of confusion and she is back to her baseline Seems to be at her baseline and saturating normally on 2 L nasal cannula oxygen Has had PT and recommendation was to go to rehab for short-term Discussed with the patient and the caregiver-want to pursue rehab for short-term. She has been feeling much better wants to go home and advised to stay tonight As she was advised by the therapist to go to rehab and she was agreeable as of yesterday Remains stable and is back to her baseline Awaiting placement for rehab No new symptoms Hyperkalemia Hypercalcemia pt w/o ekg changes repeat lab at 2200 and in am. given gentle IVF known hyperparathyroidism Hyperkalemia and hypercalcemia have been normalized Labs remain unremarkable We will recheck labs tomorrow Chronic resp failure with hypoxia on home O2 COPD w/o exacerbation Tobacco abuse continue jack Strongly advised to quit smoking which may be the cause for her current deterioration No signs and or symptoms of exacerbation-no need to add any steroid Has been saturating normally on 2 L nasal cannula Denies any respiratory symptoms Saturating normally on 2 L nasal cannula Chronic pain syndrome Scoliosis Lumbar spinal stenosis B/L lower ext contractures on chronic Morphine therapy bid prn will hold morphine for now given encephalopathy also hold hydroxyzine consult PT/OT to assist with ROM-awaiting PT and OT evaluation Flexeril 5mg bid to assist with muscle relaxation No motor spasm Hyperparathyroidism not on ca supplement or vit d repeat calcium-calcium level has been around 9.3-10.6 Congenital single kidney monitor renal fxn Hx of splenectomy chronic thrombocytosis plt ct 438 DVT ppx: SQ heparin bid Dispo: tele PCP: Shannon FULL CODE Pt sole caregiver is Thuy Lehman, whom lives with pt, and is requesting updates Discussed with the caregiver Will need rehab-awaiting placement Discharge Plan Discharge Items Patient Disposition[facility] Reason For Visit: CONTRACTURES, CONFUSION Discharge Diagnosis: acute on chronic respiratory failure with hypercarbia COPD exacerbation cachexia Acute metabolic encephalopathy-resolved Activity: Resume your previous activity Non-emergency contact: Primary Care Provider Call non-emergency contact if: you have any medication questions, your symptoms worsen, your pain is not controlled, your pain is worsening, your pain is unusual for you and your pain is concerning for you Follow-up/Referrals: Ron Ortega MD [Primary Care Provider] - Diet: Regular Addtl Attending Provider Instructions: Please take all medications as instructed on discharge list below. Please note there was a prescription for a nebulizer machine given to you at discharge. The medication that goes into this is called "Duoneb" and this has been sent to your pharmacy. This is a "rescue" inhaler for acute shortness of breath/wheezing and not to be used every day or consistently. It is strongly advised that you establish care with a seafood technology specialist. You may obtain a referral from your primary care provider (PCP). It is recommended that you establish care with a accounting system expert as outpatient. You may obtain a referral from your PCP on follow-up. You received your 4th COVID vaccination on 10/26. Please monitor for any signs /symptoms of vaccine reaction and report these right away to your medical provider. It is recommended that you follow-up with your PCP within one week of hospital discharge to ensure you are still doing well with no new symptoms, and so that referrals can be made above. It was a pleasure taking care of you! Please call if you have any questions or problems. You can reach a [facility] hospitalist on duty at [facility] 24 hours a day by calling [phone]. Take care of yourself. Yulisa Kline, [facility] Hospitalist Pending Studies at Discharge: No Stand-Alone Forms: My [facility] Skilled Items Patient informed of condition?: Yes DNR: No Discharge Level of Care: Skilled Communicable Disease: No Discharge Prognosis: Stable Lines: None Urinary Catheter: No Medications and DC Order Prescriptions: New ipratropium-albuterol 0.5 mg-3 mg(2.5 mg base)/3 mL Solution For Nebulization 3 ml NEB QIDR PRN (Reason: shortness of breath or wheezing) Qty: 90 RF: 0 Continued atorvastatin [Lipitor] 10 mg Tablet 10 mg PO QAM Qty: 0 RF: 0 escitalopram oxalate [Lexapro] 20 mg Tablet 20 mg PO QAM Qty: 0 RF: 0 aspirin [Laurel Low Dose Aspirin] 81 mg Tablet,Delayed Release (Dr/Ec) 81 mg PO QAM RF: 0 morphine 15 mg tablet 15 mg PO Q12 PRN (Reason: Pain, Severe) RF: 0 Trelegy Ellipta 100-62.5-25 mcg blister with device 1 inh INHALATION DAILY RF: 0 PreserVision AREDS 7,160 unit- 113 mg-100 unit Tablet 1 tab PO DAILY RF: 0 hydroxyzine HCl 25 mg tablet 25 mg PO DAILY PRN (Reason: Anxiety/sleep) RF: 0 coenzyme Q10 100 mg Capsule 100 mg PO DAILY RF: 0 Glucosamine Chondroitin 550-30-1 mg Capsule 1 cap PO DAILY RF: 0 oxybutynin chloride 5 mg tablet extended release 24 hr 5 mg PO DAILY RF: 0 Discharge Orders: Discharge Order (Routine); Ordered 10/26/21 Ordered By: Yulisa Kline Admission Data Admit Date/Time: 10/19/21 19:00 Attending Provider: Yulisa Kline Admit Provider: Dominik Darnell Primary Care Provider: Ron Ortega Other Providers: [facility] ; [place],[facility] ; [facility] ; Dominik Darnell ; Nereyda Martinez
[2021-10-26 16:00] VITALS: BP 123/79; PULSE 92; TEMP 98.1
== END 2021-10-26 16:12 | DRG 190 ==
LOC: ED 15:46 → 2N 19:00 → SUATTDRO 19:00 → 2N 23:30 → 2S 10-25 21:10

== ENCOUNTER 2024-06-01 17:34 | Inpatient (IN) ==
[2024-06-01 18:06] LABS: Base Excess VBG 11.3 mEq/L; Basophils # (auto) 0.13 K/uL (0.00-0.20); Basophils % (auto) 0.9 %; Eosinophils # (auto) 0.33 K/uL (0.00-0.50); Eosinophils % (auto) 2.4 %; HCO3 VBG 41 mmol/L; Hematocrit (blood only) 37.5 % (37.0-47.0); Immature Granulocytes # (auto) 0.04 K/uL (0.01-0.20); Immature Granulocytes % (auto) 0.3 %; Lymphocytes # (auto) 2.73 K/uL (1.20-3.40); Lymphocytes % (auto) 19.8 %; Mean Corpuscular Hemoglobin 29.3 pg (25.0-34.0); Mean Corpuscular Volume 91.5 fL (80.0-100.0); Mean Platelet Volume 10.6 fL (9.4-12.4); Monocytes # (auto) 0.96 K/uL (0.11-0.59); Neutrophils % (auto) 69.6 %; Oxygen Saturation VBG < 60.0 %; PCO2 VBG 77 mmHg (38-50); PO2 VBG 27 mmHg; Platelet Count 481 K/uL (130-400); RDW Coefficient of Variation 14.9 % (11.5-14.5); RDW Standard Deviation 49.9 fL (36.4-46.3); White Blood Count 13.79 K/ul (4.8-10.8); pH VBG 7.33 (7.36-7.41)
[2024-06-01] MEDS: ALBUT/IPRATROP 3MG/0.5MG NEB 3 ML VIAL INH STA (18:10)
--- NOTE | 2024-06-01 18:29 | Emergency Department Note ---
Impression & Plan Acute and chronic respiratory failure with hypercapnia, Acute exacerbation of chronic obstructive pulmonary disease ED Provider Note Provider: Avery Marte MD CHIEF COMPLAINT: Shortness of breath HISTORY OF PRESENT ILLNESS: Patient is a 84-year-old female past medical history of chronic epoxy respiratory failure on 4 to 5 L of oxygen at home, COPD, hypertension, pulmonary hypertension, congenital single kidney, CVA, lung cancer s/p resection presenting here with 1 week of illness via ambulance from home. Has had cough mildly productive at times. No falls but normally does not ambulate at baseline. Feeling somewhat weak and little bit drowsy. No sick contacts reported. Does have caregivers at home in addition to daughter. Noted oxygen 97% at home. Has been using home inhaler/trilogy. Occasionally follows with [facility] but she states not recently. No significant chest pain reported. No body aches reported or swelling. No significant sore throat is maybe a touch earlier in the week. Some slight congestion. PAST MEDICAL HISTORY: As noted above MEDICATIONS: Reviewed home medications includes oxygen SOCIAL HISTORY: Lives at home with daughter, former smoker PHYSICAL EXAM: GENERAL: alert and oriented in no acute distress on stretcher Head: normocephalic and atraumatic EYES: No injection, discharge or icterus. EOMI. NECK: Trachea midline. Supple. ENT: Mucous membranes pink and moist. Pharynx without erythema or exudate. LUNGS: Airway patent. No retractions but mildly tachypneic. Breath sounds clear with good air entry bilaterally. HEART: Regular rate and rhythm. No chest wall tenderness ABDOMEN: Soft and non-tender, without guarding or rebound. SKIN: Acyanotic, warm, dry, without rashes EXTREMITIES: Without swelling, tenderness or deformity NEUROLOGICAL: No focal deficits moving all extremities. No aphasia. No facial droop or slurred speech EK bpm normal sinus rhythm. No PVC or PAC. No acute ST segment elevation or depression left anterior fascicular block. QTc 453. CONTINUOUS CARDIAC MONITORING: was ordered and showed a heart rate of 70s to 90s bpm in normal sinus rhythm Patient's laboratory studies and imaging reviewed. Differential includes Reactive airway disease, pneumonia, pneumothorax, COPD, CHF, infections, cardiac ischemia, pulmonary embolism, musculoskeletal, gastrointestinal, as well as other pathologies. IMPRESSION/MEDICAL DECISION MAKING: Patient on some increased oxygen. Given DuoNeb here but not severely wheezy. Maybe a little bit fatigued but keenly alert and answering most of my questions. With cough question possible viral etiology versus pneumonia. Seems less likely to be fluid overload. EKG obtained. Blood work here with slight leukocytosis of 13.7 no anemia. VBG obtained here mildly acidotic pH 733 with a CO2 of 77. Discussed with patient short trial of BiPAP to see if this would help. Did give a DuoNeb here. Given a dose of IV Solu-Medrol. Daughter later arrived to see the patient is been having coughing spells and some illness for approximately 2 weeks. Patient not an extremis. Surprisingly respiratory viral panel negative. Discussion with patient and family did recommend we further observe her overnight and she was in agreement. Discussed with the hospitalist who evaluated the patient here in the ED. Repeat VBG after just over an hour of BiPAP was ordered with improving acidosis and hypercarbia. Will try the patient off BiPAP. DIAGNOSIS: Acute COPD exacerbation, acute on chronic hypoxic/hypercapnic respiratory failure DISPOSITION: Hospitalist will evaluate Patient was agreeable with this plan. Past Med/Surg History Problem List Acute exacerbation of chronic obstructive pulmonary disease (Acute) Acute and chronic respiratory failure with hypercapnia (Acute) Acute metabolic encephalopathy Cachexia Acute and chronic respiratory failure SBO (small bowel obstruction) (Acute) Abdominal pain, acute, epigastric (Acute) Vomiting (Acute) Impacted cerumen of both ears No family history of adverse response to anesthesia Arthritis Left hip pain Discharge planning issues Depression (Chronic) Chronic prescription opiate use (Chronic) Gastroesophageal reflux disease (Chronic 10/13/10) CKD (chronic kidney disease), stage III (Chronic) Pulmonary hypertension (Chronic) 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) "s/p resection, chemo and radiation 10 yrs ago" Lumbar spinal stenosis (Chronic) Osteoporosis (Chronic) Hyponatremia (Acute) H/O splenectomy (Chronic) S/P cholecystectomy (Chronic) Hx of appendectomy (Chronic) Medical History (Updated 06/01/24 @ 19:12 by Avery Marte M.D.) Spasms of the hands or feet Hypercalcemia Hyperkalemia Hypercarbia Chronic respiratory failure with hypoxia, on home O2 therapy Encephalopathy Hyperlipidemia Stroke Bronchitis COPD (chronic obstructive pulmonary disease) Chronic pain syndrome (10/13/10) Surgical History History of tonsillectomy and adenoidectomy History of bladder surgery History of adrenal surgery History of hysterectomy History of lung surgery Family History (Updated 10/19/21 @ 20:16 by Alejandrina Scanlon PA-C) Mother Glaucoma Father Cancer Lung cancer Other Allergies No family history of bleeding disorder Social History (Updated 10/19/21 @ 20:16 by Alejandrina Scanlon PA-C) Smoking Status: Never smoker Tobacco Type: Cigarettes Cigarettes Per Day: 6; Second Hand Exposure: No; Do You Dip or Chew Tobacco: No; Hx Alcohol Use: No Hx Substance Use: No Preferred Language: Chinese Communication Ability: Impaired Communication Ability Comment: Confused Visual Impairment: No Limitations Hearing Ability: Normal Home Housekeeper Required: No Beliefs That Will Affect Care: None Current Living Situation: Other 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 Feels Safe at Home: Yes Assistive Devices: Wheelchair Allergies Allergies Allergy/AdvReac Type Severity Reaction Status Date / Time levofloxacin [From Levaquin] Allergy Severe airway Verified 10/19/21 20:02 edema Penicillins Allergy Unknown hives Unverified 10/27/19 09:19 procaine Allergy Unknown SWELLING Verified 10/27/19 09:19 codeine AdvReac Unknown GI UPSET Unverified 10/27/19 09:19 lidocaine AdvReac Unknown Verified 10/19/21 20:03 Home Meds Home Medications Medication Instructions Recorded Confirmed Bifidobacterium infantis 4 mg 4 mg PO DAILY 06/01/24 06/01/24 capsule (Align (B.infantis)) albuterol sulfate 1.25 mg/3 mL 1.25 mg continuous nebulization 06/01/24 06/01/24 solution for nebulization Q6H PRN Shortness Of Breath Or Wheezing aspirin 81 mg tablet,delayed 81 mg PO DAILY 06/01/24 06/01/24 release atorvastatin 10 mg tablet 10 mg PO DAILY 06/01/24 06/01/24 escitalopram oxalate 20 mg tablet 20 mg PO DAILY 06/01/24 06/01/24 fluticasone fur. 100 mcg-umeclid 1 inh inhalation DAILY 06/01/24 06/01/24 62.5 mcg-vilant 25 mcg inhalat.powder (Trelegy Ellipta) vvvdwiohhnt-selnfdohncb-xgh C-cori 2 tab PO DAILY 06/01/24 06/01/24 250 mg-200 mg-30 mg-2.5 mg tablet (Glucosamine-Chondroitin Complex) mirtazapine 7.5 mg tablet 7.5 mg PO HS 06/01/24 06/01/24 vitamins A,C,Q-dwat-srokkt 4,296 1 cap PO BID 06/01/24 06/01/24 mcg-226 mg-90 mg capsule (PreserVision AREDS) Results & Data (ED) Vital Signs Vital Signs - 24 hr 06/01/24 17:37 06/01/24 17:37 06/01/24 17:57 Temperature 36.5 C Temperature Source Oral Pulse Rate 89 77 Pulse Rate [Left Finger] Pulse Rhythm Regular Respiratory Rate 22 26 H Respiratory Effort / Characteristics Respiratory Depth Respiratory Pattern Blood Pressure 155/74 H Blood Pressure [Left Arm] Blood Pressure Mean 101 Blood Pressure Mean [Left Arm] Blood Pressure Position Sitting Blood Pressure Position [Left Arm] Pulse Oximetry 99 98 Oxygen Delivery Method Nasal Cannula Nasal Cannula Nasal Cannula Oxygen Flow Rate 6 6 6 Fraction of Inspired Oxygen Sepsis Recent Fever Within 48 Hours No Sepsis New/Unexplained Change in Mental Status No Sepsis Action Taken by Nursing No Action Required 06/01/24 18:03 06/01/24 18:53 06/01/24 19:19 Temperature Temperature Source Pulse Rate 86 80 Pulse Rate [Left Finger] 80 Pulse Rhythm Respiratory Rate 26 H 15 Respiratory Effort / Characteristics Non-Labored Spontaneous Respiratory Depth Normal Respiratory Pattern Regular Blood Pressure Blood Pressure [Left Arm] 145/65 H Blood Pressure Mean Blood Pressure Mean [Left Arm] 91 Blood Pressure Position Blood Pressure Position [Left Arm] Sitting Pulse Oximetry 99 97 Oxygen Delivery Method Nasal Cannula Oxygen Flow Rate 6 Fraction of Inspired Oxygen 40 Sepsis Recent Fever Within 48 Hours Sepsis New/Unexplained Change in Mental Status Sepsis Action Taken by Nursing 06/01/24 19:27 06/01/24 20:00 Temperature Temperature Source Pulse Rate Pulse Rate [Left Finger] 90 Pulse Rhythm Respiratory Rate 22 Respiratory Effort / Characteristics Non-Labored Spontaneous Respiratory Depth Normal Respiratory Pattern Regular Blood Pressure Blood Pressure [Left Arm] 139/64 Blood Pressure Mean Blood Pressure Mean [Left Arm] 89 Blood Pressure Position Blood Pressure Position [Left Arm] Pulse Oximetry 98 Oxygen Delivery Method BiPAP Nasal Cannula Oxygen Flow Rate 6 Fraction of Inspired Oxygen Sepsis Recent Fever Within 48 Hours Sepsis New/Unexplained Change in Mental Status Sepsis Action Taken by Nursing Laboratory Data 06/01/24 17:50 06/01/24 17:50 Lab Results 06/01/24 06/01/24 Range/Units 17:50 19:14 WBC 13.79 H (4.8-10.8) K/ul RBC 4.10 L (4.20-5.40) M/uL Hgb 12.0 (12.0-16.0) g/dl Hct 37.5 (37.0-47.0) % MCV 91.5 (80.0-100.0) fL MCH 29.3 (25.0-34.0) pg MCHC 32.0 (32.0-36.0) g/dL RDW Std Deviation 49.9 H (36.4-46.3) fL RDW Coeff of Lora 14.9 H (11.5-14.5) % Plt Count 481 H (130-400) K/uL MPV 10.6 (9.4-12.4) fL Immature Gran % (Auto) 0.3 % Neut % (Auto) 69.6 % Lymph % (Auto) 19.8 % Placer % (Auto) 7.0 % Eos % (Auto) 2.4 % Baso % (Auto) 0.9 % Neut # (Auto) 9.60 H (1.40-6.50) K/uL Lymph # (Auto) 2.73 (1.20-3.40) K/uL Placer # (Auto) 0.96 H (0.11-0.59) K/uL Eos # (Auto) 0.33 (0.00-0.50) K/uL Baso # (Auto) 0.13 (0.00-0.20) K/uL Immature Gran # (Auto) 0.04 (0.01-0.20) K/uL PT Cancelled 10.2 INR Cancelled 0.9 APTT Cancelled 34 H PTT Ratio Cancelled 1.3 VBG pH 7.33 L (7.36-7.41) VBG pCO2 77 H (38-50) mmHg VBG pO2 27 mmHg VBG HCO3 41 mmol/L VBG O2 Saturation < 60.0 % VBG Base Excess 11.3 mEq/L Sodium 140 (136-145) mmol/L Potassium 5.0 (3.5-5.1) mmol/L Chloride 98 (98-107) mmol/L Carbon Dioxide 41 H* (21-32) mmol/L Anion Gap 1 L (3-11) BUN 23 (6-23) mg/dl Creatinine 0.78 (0.6-1.2) mg/dl Est Cr Clr Drug Dosing 58.7 ml/min eGFR 74.85 BUN/Creatinine Ratio 29.5 H (10-20) Glucose 148 H (70-99(Fasting)) mg/dl Calcium 9.8 (8.6-10.3) mg/dl Magnesium 2.1 (1.7-2.4) mg/dl Total Bilirubin 0.4 (0.2-1.0) mg/dl AST 16 (13-39) U/L ALT 10 (7-52) U/L Alkaline Phosphatase 97 (34-104) U/L Troponin I High Sens 5.6 (0-14) pg/ml Total Protein 7.6 (6.0-8.3) gm/dl Albumin 3.9 (3.4-5.0) gm/dl Globulin 3.7 (2.5-4.0) gm/dl Albumin/Globulin Ratio 1.1 (0.9-2) Adenovirus (PCR) Not Detected (NotDetected) B. pertussis DNA (PCR) Not Detected (NotDetected) B.parapertussis DNA PCR Not Detected (NotDetected) C. pneumoniae DNA (PCR) Not Detected (NotDetected) Coronavirus OC43 (PCR) Not Detected (NotDetected) Coronavirus HKU1 (PCR) Not Detected (NotDetected) Coronavirus 229E (PCR) Not Detected (NotDetected) SARS-CoV-2 (PCR) Not Detected (NotDetected) Coronavirus NL63 (PCR) Not Detected (NotDetected) Human Metapneumovir PCR Not Detected (NotDetected) Influenza Type A (PCR) Not Detected (NotDetected) Influenza Type B (PCR) Not Detected (NotDetected) M. pneumoniae (PCR) Not Detected (NotDetected) Parainfluenza 1 (PCR) Not Detected (NotDetected) Parainfluenza 2 (PCR) Not Detected (NotDetected) Parainfluenza 3 (PCR) Not Detected (NotDetected) Parainfluenza 4 (PCR) Not Detected (NotDetected) RSV (PCR) Not Detected (NotDetected) Entero/Rhino (PCR) Not Detected (NotDetected) Administered Medications Discontinued Medications Albuterol (Albut/Ipratrop 3mg/0.5mg Neb 3 Ml Vial) 3 ml INH NOW STA Stop: 06/01/24 17:44 Last Admin: 06/01/24 18:10 Dose: 3 ml Documented By: BEST Methylprednisolone (Methylprednisolone 125 Mg/2 Ml Vial) 60 mg IV NOW STA Stop: 06/01/24 18:29 Last Admin: 06/01/24 18:43 Dose: 60 mg Documented By: BEST Mirtazapine (Mirtazapine Tab 15 Mg Tab) 7.5 mg PO NOW ONE Stop: 06/01/24 20:17 Last Admin: 06/01/24 22:18 Dose: 7.5 mg Documented By: Imaging Data Radiologist's Impression: Chest X-Ray 06/01/24 17:43 EXAM: XR chest 1V portable CLINICAL HISTORY: Dyspnea. TECHNIQUE: An X-ray image of the chest is obtained in AP projection. COMPARISON: dated 10/25/2021. FINDINGS: Pulmonary Parenchyma: Prominent bilateral bronchovascular markings. A mild inhomogenous haziness is noted in the right lower zone Veiling of the left costophrenic angle. No pulmonary nodules are identified. No evidence of pleural effusion or pleural thickening. Heart and Mediastinum: Heart size and shape are normal. No mediastinal widening or masses. No hilar or mediastinal lymphadenopathy. Bony Thorax: Scoliosis of the thoracic spine to the left side. Arthritic changes of the left glenohumeral and acromioclavicular joints. Soft Tissues: Soft tissues overlying the chest wall are unremarkable. IMPRESSION: 1. Prominent bilateral bronchovascular markings. These could probably represent early/mild inflammatory/infectious etiology. 2. A mild inhomogenous haziness is noted in the right lower zone suggesting a possible developing infiltrate, advise clinical correlation and follow-up. 3. Further evaluation with CT is recommended if clinically warranted. Electronically signed by Clarissa Mena 06-01-2024 7:49 PM Discharge Plan Visit Data Chief Complaint: Shortness of Breath/Dyspnea Stated Complaint: SOB ED Provider: Avery Marte Discharge Problem: Acute and chronic respiratory failure with hypercapnia, Acute exacerbation of chronic obstructive pulmonary disease Patient Disposition: Being Evaluated by Hospitalist Discharge Instructions Interventions: ED Discharge Assessment Last Done: 06/01/24 21:32
[2024-06-01 18:39] LABS: Albumin Globulin Ratio 1.1 (0.9-2); Albumin Level 3.9 gm/dl (3.4-5.0); BUN Creatinine Ratio 29.5 (10-20); Bilirubin,Total 0.4 mg/dl (0.2-1.0); Calcium 9.8 mg/dl (8.6-10.3); Creatinine Clr Calc Pharmacy 58.7 ml/min; Globulin 3.7 gm/dl (2.5-4.0); Magnesium 2.1 mg/dl (1.7-2.4); Total Protein 7.6 gm/dl (6.0-8.3); Troponin I High Sensitivity 5.6 pg/ml (0-14)
[2024-06-01] MEDS: methylPREDNISolone 125 MG/2 ML VIAL IV STA (18:43)
[2024-06-01 18:59] LABS: Adenovirus PCR Not Detected (NotDetected); Bordetella parapertussis PCR Not Detected (NotDetected); Bordetella pertussis PCR Not Detected (NotDetected); Chlamydia pneumoniae PCR Not Detected (NotDetected); Coronavirus 229E PCR Not Detected (NotDetected); Coronavirus CoV-2 (COVID19)PCR Not Detected (NotDetected); Coronavirus HKU1 PCR Not Detected (NotDetected); Coronavirus NL63 PCR Not Detected (NotDetected); Coronavirus OC43PCR Not Detected (NotDetected); Human Metapneumovirus PCR Not Detected (NotDetected); Influenza A PCR Not Detected (NotDetected); Influenza B PCR Not Detected (NotDetected); Mycoplasma pneumoniae PCR Not Detected (NotDetected); Parainfluenza Virus 1 PCR Not Detected (NotDetected); Parainfluenza Virus 2 PCR Not Detected (NotDetected); Parainfluenza Virus 3 PCR Not Detected (NotDetected); Parainfluenza Virus 4 PCR Not Detected (NotDetected); Respiratory Syncytial VirusPCR Not Detected (NotDetected); Rhinovirus/Enterovirus PCR Not Detected (NotDetected)
--- NOTE | 2024-06-01 19:50 | XRay Report ---
EXAM: XR chest 1V portable CLINICAL HISTORY: Dyspnea. TECHNIQUE: An X-ray image of the chest is obtained in AP projection. COMPARISON: CR dated 10/25/2021. FINDINGS: Pulmonary Parenchyma: Prominent bilateral bronchovascular markings. A mild inhomogenous haziness is noted in the right lower zone Veiling of the left costophrenic angle. No pulmonary nodules are identified. No evidence of pleural effusion or pleural thickening. Heart and Mediastinum: Heart size and shape are normal. No mediastinal widening or masses. No hilar or mediastinal lymphadenopathy. Bony Thorax: Scoliosis of the thoracic spine to the left side. Arthritic changes of the left glenohumeral and acromioclavicular joints. Soft Tissues: Soft tissues overlying the chest wall are unremarkable. IMPRESSION: 1. Prominent bilateral bronchovascular markings. These could probably represent early/mild inflammatory/infectious etiology. 2. A mild inhomogenous haziness is noted in the right lower zone suggesting a possible developing infiltrate, advise clinical correlation and follow-up. 3. Further evaluation with CT is recommended if clinically warranted. Electronically signed by Clarissa Mena 06-01-2024 7:49 PM
[2024-06-01 19:53] LABS: INR 0.9 (0.9-1.1); Partial Thromboplastin Ratio 1.3; Partial Thromboplastin Time 34 Seconds (21-31); Prothrombin Time 10.2 Seconds (9.0-12.0)
--- NOTE | 2024-06-01 20:30 | History & Physical Report ---
Date of Service June 01, 2024 Assessment & Plan (1) Acute exacerbation of chronic obstructive pulmonary disease: Plan: 84-year-old female with past medical history significant for COPD, chronic respiratory failure with hypoxia on 4 L oxygen at home, pulmonary hypertension, diastolic dysfunction, moderate mitral regurgitation, severe protein calorie malnutrition, GERD, congenital single kidney, osteoporosis, contracture of hand, thrombocytosis, lumbar spinal stenosis, history of lung cancer, history of splenectomy, history of CVA, history of CKD, hypertension, depression, who lives at home and nonambulatory status because of contractures in the legs and lately daughter is living with her who helps with her ambulation comes because of ongoing shortness of breath and cough. Patient had this cough and shortness going on for last 2 months but for last 2 weeks getting progressively worse. She is bringing up thick brownish phlegm. Coughing spells mostly happening in the nighttime. Lately need to bump up the oxygen to 4.5 L. When she has to go to bathroom daughter helps her ambulate with a rollator walker and her oxygen saturation dropping to 80% her heart rate going to 100s and it takes 10 minutes to recover. Because as she is not getting better she was brought to hospital today. Patient is weak and frail. Alert and oriented x 3. Denies any chest pain. Denies headache. Denies abdominal pain. Normal bowel and bladder movements as per daughter. Appetite is okay. She can swallow okay. No nausea. No runny nose or sore throat currently. Afebrile. Hemodynamics okay currently. Acute exacerbation of COPD On 4 to 4.5 L oxygen at home Acute on chronic respiratory failure Oxygen/85% on presentation Presented with shortness of breath and cough with phlegm Was placed on BiPAP in the ER Chest x-ray unremarkable Respiratory BioFire negative We will follow procalcitonin level empiric Doxycycline for now Solu-Medrol 40 mg 3 times daily Nebs [id number] and as needed Continue home inhalers Close monitor History of chronic diastolic CHF Moderate mitral regurgitation Will monitor for volume overload Will follow echo History of hypercalcemia History of hyperparathyroidism Calcium level okay at 9.8 Has appointment with endocrinology History of lumbar spinal stenosis Scoliosis Bilateral lower EXTR contractures Poor ambulatory status PT OT when stable History of splenectomy Chronic thrombocytosis 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 Lung cancer S/p right upper lobectomy History of CVA On aspirin and statin Depression Lexapro and Remeron DVT prophylaxis Lovenox Disposition Med/telemetry CODE STATUS full code only if there is chance of recovery as per discussion with the patient and the daughter History of Present Illness Chief Complaint: Shortness of breath Primary Care Provider: Ron Ortega MD 84-year-old female with past medical history significant for COPD, chronic respiratory failure with hypoxia on 4 L oxygen at home, pulmonary hypertension, diastolic dysfunction, moderate mitral regurgitation, severe protein calorie malnutrition, GERD, congenital single kidney, osteoporosis, contracture of hand, thrombocytosis, lumbar spinal stenosis, history of lung cancer, history of splenectomy, history of CVA, history of CKD, hypertension, depression, who lives at home and nonambulatory status because of contractures in the legs and lately daughter is living with her who helps with her ambulation comes because of on going shortness of breath and cough. Patient had this cough and shortness going on for last 2 months but for last 2 weeks getting progressively worse. She is bringing up thick brownish phlegm. Coughing spells mostly happening in the nighttime. Lately need to bump up the oxygen to 4.5 L. When she has to go to bathroom daughter helps her ambulate with a rollator walker and her oxygen saturation dropping to 80% her heart rate going to 100s and it takes 10 minutes to recover. Because as she is not getting better she was brought to hospital today. Patient is weak and frail. Alert and oriented x 3. Denies any chest pain. Denies headache. Denies abdominal pain. Normal bowel and bladder movements as per daughter. Appetite is okay. She can swallow okay. No nausea. No runny nose or sore throat currently. Afebrile. Hemodynamics okay currently Past medical history. As mentioned above Past surgical history. EGD. EGD with biopsy. EGD with endoscopic ultrasound. Exploratory laparotomy. Injection of lumbosacral spine. Laparoscopic adrenalectomy. Diagnostic laparoscopy. Appendectomy. Removal of right kidney as a child. Small bowel resection. Total splenectomy. Bilateral cataract surgery. Cholecystectomy. Injection of lumbosacral spine. Right upper lobectomy. Small bowel endoscopy with removal of foreign body. Total abdominal hysterectomy with removal of tubes. Social history. Smoked 1 pack a day for 50 years. Not smoked since last 20 years as per daughter. Alcohol rarely. No drug use. Family history. Father had lung cancer. Mother had complications from bowel obstruction. Allergies Allergy/AdvReac Type Severity Reaction Status Date / Time levofloxacin [From Levaquin] Allergy Severe airway Verified 10/19/21 20:02 edema Penicillins Allergy Unknown hives Unverified 10/27/19 09:19 procaine Allergy Unknown SWELLING Verified 10/27/19 09:19 codeine AdvReac Unknown GI UPSET Unverified 10/27/19 09:19 lidocaine AdvReac Unknown Verified 10/19/21 20:03 Home Medications Medication Instructions Recorded Confirmed Type Bifidobacterium infantis 4 mg 4 mg PO DAILY 06/01/24 06/01/24 History capsule (Align (B.infantis)) albuterol sulfate 1.25 mg/3 mL 1.25 mg continuous nebulization 06/01/24 06/01/24 History solution for nebulization Q6H PRN Shortness Of Breath Or Wheezing aspirin 81 mg tablet,delayed 81 mg PO DAILY 06/01/24 06/01/24 History release atorvastatin 10 mg tablet 10 mg PO DAILY 06/01/24 06/01/24 History escitalopram oxalate 20 mg tablet 20 mg PO DAILY 06/01/24 06/01/24 History fluticasone fur. 100 mcg-umeclid 1 inh inhalation DAILY 06/01/24 06/01/24 History 62.5 mcg-vilant 25 mcg inhalat.powder (Trelegy Ellipta) nytfnyghfwq-xbjofduyjsw-mkd C-cori 2 tab PO DAILY 06/01/24 06/01/24 History 250 mg-200 mg-30 mg-2.5 mg tablet (Glucosamine-Chondroitin Complex) mirtazapine 7.5 mg tablet 7.5 mg PO HS 06/01/24 06/01/24 History vitamins A,C,I-vgzt-btkfsv 4,296 1 cap PO BID 06/01/24 06/01/24 History mcg-226 mg-90 mg capsule (PreserVision AREDS) Past Med/Surg History Problem List Acute exacerbation of chronic obstructive pulmonary disease (Acute) Acute and chronic respiratory failure with hypercapnia (Acute) Acute metabolic encephalopathy Cachexia Acute and chronic respiratory failure SBO (small bowel obstruction) (Acute) Abdominal pain, acute, epigastric (Acute) Vomiting (Acute) Impacted cerumen of both ears No family history of adverse response to anesthesia Arthritis Left hip pain Discharge planning issues Depression (Chronic) Chronic prescription opiate use (Chronic) Gastroesophageal reflux disease (Chronic 10/13/10) CKD (chronic kidney disease), stage III (Chronic) Pulmonary hypertension (Chronic) 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) "s/p resection, chemo and radiation 10 yrs ago" Lumbar spinal stenosis (Chronic) Osteoporosis (Chronic) Hyponatremia (Acute) H/O splenectomy (Chronic) S/P cholecystectomy (Chronic) Hx of appendectomy (Chronic) Medical History (Updated 06/01/24 @ 19:12 by Avery Marte M.D.) Spasms of the hands or feet Hypercalcemia Hyperkalemia Hypercarbia Chronic respiratory failure with hypoxia, on home O2 therapy Encephalopathy Hyperlipidemia Stroke Bronchitis COPD (chronic obstructive pulmonary disease) Chronic pain syndrome (10/13/10) Surgical History History of tonsillectomy and adenoidectomy History of bladder surgery History of adrenal surgery History of hysterectomy History of lung surgery Family History (Updated 10/19/21 @ 20:16 by Alejandrina Scanlon PA-C) Mother Glaucoma Father Cancer Lung cancer Other Allergies No family history of bleeding disorder Social History (Updated 10/19/21 @ 20:16 by Alejandrina Scanlon PA-C) Smoking Status: Former smoker Tobacco Type: Cigarettes Cigarettes Per Day: 15; Smoking End Date: 2022; Second Hand Exposure: No; Do You Dip or Chew Tobacco: No; Hx Alcohol Use: Yes Alcohol type: wine Hx Substance Use: Yes Last Used Substance: Days (ago) Substance Use Type Other:: uses marijuana couples times a month with a vape Preferred Language: Brune[place] Communication Ability: Effective Communication Ability Comment: Confused Visual Impairment: No Limitations Hearing Ability: Normal Occupational Physician Required: No Beliefs That Will Affect Care: None Current Living Situation: Family Current Living Situation Comment: Lives with her daughter Corinna current occupational status: retired Other Information That Helps Us Care for You: No Feels Safe at Home: Yes Safety Concerns: Feels Safe At This Time Assistive Devices: Wheelchair Assistive Devices Comment: total care required Review of Systems Review of Systems: All systems reviewed & are unremarkable except as noted in HPI & below Physical Exam Physical Exam: General- Not in acute distress Head- atraumatic Eyes- PERRL. Neck- supple, no JVD. Lungs- diminished b/l breath sounds, no obvious wheezing or crackles Heart- regular rhythm; no murmur, no gallop. Abdomen- normal bowel sounds, soft, nontender, no distension Extremities- no pretibial edema, no erythema seen Neuro- alert, oriented x 3; PERRL, no facial palsy; no dysarthria; moves extremities Skin- stage 1 decubitus ulcer in sacral and lumbar region Results & Data Results & Data Vital Signs (Past 12 Hours) Vital Signs Temp Pulse Pulse Resp BP BP Pulse Ox 06/01/24 19:27 06/01/24 19:19 80 15 97 06/01/24 18:53 80 26 H 145/65 H 99 06/01/24 18:03 86 06/01/24 17:57 77 26 H 98 06/01/24 17:37 36.5 C 89 22 155/74 H 99 06/01/24 17:37 O2 Del Method O2 Flow Rate FiO2 06/01/24 19:27 BiPAP 06/01/24 19:19 40 06/01/24 18:53 Nasal Cannula 6 06/01/24 18:03 06/01/24 17:57 Nasal Cannula 6 06/01/24 17:37 Nasal Cannula 6 06/01/24 17:37 Nasal Cannula 6 Diagnostic Findings Laboratory Results WBC 13.79 K/ul (4.8-10.8) H 06/01/24 17:50 RBC 4.10 M/uL (4.20-5.40) L 06/01/24 17:50 Hgb 12.0 g/dl (12.0-16.0) 06/01/24 17:50 Hct 37.5 % (37.0-47.0) 06/01/24 17:50 MCV 91.5 fL (80.0-100.0) 06/01/24 17:50 MCH 29.3 pg (25.0-34.0) 06/01/24 17:50 MCHC 32.0 g/dL (32.0-36.0) 06/01/24 17:50 RDW Std Deviation 49.9 fL (36.4-46.3) H 06/01/24 17:50 RDW Coeff of Lroa 14.9 % (11.5-14.5) H 06/01/24 17:50 Plt Count 481 K/uL (130-400) H 06/01/24 17:50 MPV 10.6 fL (9.4-12.4) 06/01/24 17:50 Immature Gran % (Auto) 0.3 % 06/01/24 17:50 Neut % (Auto) 69.6 % 06/01/24 17:50 Lymph % (Auto) 19.8 % 06/01/24 17:50 [place] % (Auto) 7.0 % 06/01/24 17:50 Eos % (Auto) 2.4 % 06/01/24 17:50 Baso % (Auto) 0.9 % 06/01/24 17:50 Neut # (Auto) 9.60 K/uL (1.40-6.50) H 06/01/24 17:50 Lymph # (Auto) 2.73 K/uL (1.20-3.40) 06/01/24 17:50 [place] # (Auto) 0.96 K/uL (0.11-0.59) H 06/01/24 17:50 Eos # (Auto) 0.33 K/uL (0.00-0.50) 06/01/24 17:50 Baso # (Auto) 0.13 K/uL (0.00-0.20) 06/01/24 17:50 Immature Gran # (Auto) 0.04 K/uL (0.01-0.20) 06/01/24 17:50 PT 10.2 Seconds (9.0-12.0) 06/01/24 19:14 INR 0.9 (0.9-1.1) 06/01/24 19:14 APTT 34 Seconds (21-31) H 06/01/24 19:14 PTT Ratio 1.3 06/01/24 19:14 VBG pH 7.38 (7.36-7.41) 06/01/24 20:25 VBG pCO2 70 mmHg (38-50) H 06/01/24 20:25 VBG pO2 39 mmHg 06/01/24 20:25 VBG HCO3 41 mmol/L 06/01/24 20:25 VBG O2 Saturation 70.0 % 06/01/24 20:25 VBG Base Excess 13.0 mEq/L 06/01/24 20:25 Sodium 140 mmol/L (136-145) 06/01/24 17:50 Potassium 5.0 mmol/L (3.5-5.1) 06/01/24 17:50 Chloride 98 mmol/L (98-107) 06/01/24 17:50 Carbon Dioxide 41 mmol/L (21-32) H* 06/01/24 17:50 Anion Gap 1 (3-11) L 06/01/24 17:50 BUN 23 mg/dl (6-23) 06/01/24 17:50 Creatinine 0.78 mg/dl (0.6-1.2) 06/01/24 17:50 Est Cr Clr Drug Dosing 58.7 ml/min 06/01/24 17:50 eGFR 74.85 06/01/24 17:50 BUN/Creatinine Ratio 29.5 (10-20) H 06/01/24 17:50 Glucose 148 mg/dl (70-99(Fasting)) H 06/01/24 17:50 Calcium 9.8 mg/dl (8.6-10.3) 06/01/24 17:50 Magnesium 2.1 mg/dl (1.7-2.4) 06/01/24 17:50 Total Bilirubin 0.4 mg/dl (0.2-1.0) 06/01/24 17:50 AST 16 U/L (13-39) 06/01/24 17:50 ALT 10 U/L (7-52) 06/01/24 17:50 Alkaline Phosphatase 97 U/L (34-104) 06/01/24 17:50 Troponin I High Sens 5.6 pg/ml (0-14) 06/01/24 17:50 Total Protein 7.6 gm/dl (6.0-8.3) 06/01/24 17:50 Albumin 3.9 gm/dl (3.4-5.0) 06/01/24 17:50 Globulin 3.7 gm/dl (2.5-4.0) 06/01/24 17:50 Albumin/Globulin Ratio 1.1 (0.9-2) 06/01/24 17:50 Adenovirus (PCR) Not Detected (NotDetected) 06/01/24 17:50 B. pertussis DNA (PCR) Not Detected (NotDetected) 06/01/24 17:50 B.parapertussis DNA PCR Not Detected (NotDetected) 06/01/24 17:50 C. pneumoniae DNA (PCR) Not Detected (NotDetected) 06/01/24 17:50 Coronavirus OC43 (PCR) Not Detected (NotDetected) 06/01/24 17:50 Coronavirus HKU1 (PCR) Not Detected (NotDetected) 06/01/24 17:50 Coronavirus 229E (PCR) Not Detected (NotDetected) 06/01/24 17:50 SARS-CoV-2 (PCR) Not Detected (NotDetected) 06/01/24 17:50 Coronavirus NL63 (PCR) Not Detected (NotDetected) 06/01/24 17:50 Human Metapneumovir PCR Not Detected (NotDetected) 06/01/24 17:50 Influenza Type A (PCR) Not Detected (NotDetected) 06/01/24 17:50 Influenza Type B (PCR) Not Detected (NotDetected) 06/01/24 17:50 M. pneumoniae (PCR) Not Detected (NotDetected) 06/01/24 17:50 Parainfluenza 1 (PCR) Not Detected (NotDetected) 06/01/24 17:50 Parainfluenza 2 (PCR) Not Detected (NotDetected) 06/01/24 17:50 Parainfluenza 3 (PCR) Not Detected (NotDetected) 06/01/24 17:50 Parainfluenza 4 (PCR) Not Detected (NotDetected) 06/01/24 17:50 RSV (PCR) Not Detected (NotDetected) 06/01/24 17:50 Entero/Rhino (PCR) Not Detected (NotDetected) 06/01/24 17:50 Impressions Chest X-Ray 06/01/24 17:43 EXAM: XR chest 1V portable CLINICAL HISTORY: Dyspnea. TECHNIQUE: An X-ray image of the chest is obtained in AP projection. COMPARISON: CR dated 10/25/2021. FINDINGS: Pulmonary Parenchyma: Prominent bilateral bronchovascular markings. A mild inhomogenous haziness is noted in the right lower zone Veiling of the left costophrenic angle. No pulmonary nodules are identified. No evidence of pleural effusion or pleural thickening. Heart and Mediastinum: Heart size and shape are normal. No mediastinal widening or masses. No hilar or mediastinal lymphadenopathy. Bony Thorax: Scoliosis of the thoracic spine to the left side. Arthritic changes of the left glenohumeral and acromioclavicular joints. Soft Tissues: Soft tissues overlying the chest wall are unremarkable. IMPRESSION: 1. Prominent bilateral bronchovascular markings. These could probably represent early/mild inflammatory/infectious etiology. 2. A mild inhomogenous haziness is noted in the right lower zone suggesting a possible developing infiltrate, advise clinical correlation and follow-up. 3. Further evaluation with CT is recommended if clinically warranted. Electronically signed by Clarissa Mena 06-01-2024 7:49 PM ECG Additional Comments: ECG. Normal sinus rhythm rate 82. Pulmonary disease pattern. Left anterior fascicular block. QTc 453. Code Status & VTE Plan VTE Prophylaxis Plan VTE Prophylaxis will be ordered: Yes
[2024-06-01 20:31] LABS: HCO3 VBG 41 mmol/L; PCO2 VBG 70 mmHg (38-50); PO2 VBG 39 mmHg; pH VBG 7.38 (7.36-7.41)
[2024-06-01] MEDS ORDERED: ALBUT/IPRATROP 3MG/0.5MG NEB 3 ML VIAL NEB PRN (22:15)
[2024-06-01] MEDS ORDERED: NITROGLYCERIN SL 0.4 MG/TAB TAB SL PRN (22:15)
[2024-06-01] MEDS ORDERED: ACETAMINOPHEN 325 MG TAB PO PRN (22:15)
[2024-06-01] MEDS ORDERED: POLYETHYLENE (MIRALAX) 17 GM PACK PO PRN (22:15)
[2024-06-01] MEDS: MIRTAZAPINE TAB 15 MG TAB PO ONE (22:18)
[2024-06-01] MEDS: ENOXAPARIN INJ 40 MG/0.4 ML SYR SQ SCH (22:48)
[2024-06-01] MEDS: DOXYCYCLINE HYCLATE 100 MG CAP PO STA (22:49)
[2024-06-01 23:15] LABS: Appearance Urine Cloudy (Clear); Bacteria Urine Automated 4+ (None Seen); Bilirubin Urine Negative (Negative); Blood Urine Negative (Negative); Cast Urine Automated 0-2 /lpf (0-2); Color Urine Yellow; Epithelial Cell Urine Auto 0-2 /hpf (0-2); Glucose Urine UA Negative (Negative); Ketones Urine Trace (Negative); Leukocyte Esterase Urine 2+ (Negative); Nitrite Urine Positive (Negative); Protein Urine Trace (Negative); RBC Urine Automated 0-2 /hpf (0-2); Specific Gravity Urine 1.019 (1.000-1.030); Urobilinogen Urine Negative (Negative); pH Urine 6.5 (4.5-7.5)
--- OUTSIDE RECORDS SUMMARY | 2024-06-02 01:48 | External Medical Summary | Summary of Care ---
Author Name Unknown Organization [facility] Address [address] [place] [address] Phone [phone] Care Team Providers Care Tool Repairer Name Role Phone Ron Ortega MD Primary Care Provider + Reason for Visit * Reason Onset Date Comments Order Request 05/25/2024 Geriatric referr al Encounter Details Date Type Department Care Team ([facility] Contact Info) Description 05/25/2024 Telephone General Internal Medicine [facility] [address] [place] [address] Ron Ortega MD [address] [place] [address] Order Request (Geriatric referral) Allergies Active Allergy Reactions Criticality Noted Date Comments Adhesive Tape 02/15/2017 Codeine Rash Medium 10/16/2010 Levofloxacin Edema airway High 10/15/2017 Lidocaine Other (Please comment) 02/23/2010 unknown Penicillins Rash 10/14/2000 documented as of this encounter (statuses as of 05/28/2024) Medications oxygen GASIndications:Hypoxia Use 2 L/min(Oxygen) as directed continuous. 1 Each 017 Active Coenzyme Q10 (COQ10) 100 MG CAPS Once daily, unsure of dose. Active acetaminophen (TYLENOL) 500 MG Tablet Take 1 Tablet by mouth every 6 hours as needed. 100 Tab 020 Active Probiotic Product (ALIGN) Capsule Take 1 Capsule by mouth in the morning. 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 NURSING, PT/OT. DX: METABOLIC ENCEPHALOPATHY , COPD, HX OF LUNG CANCER, RESPIRATORY FAILURE WITH HYPOXEMIA 1 Each 1 022 Active PreserVision AREDS Oral Tablet Take by mouth 1 Tablet in the morning. 30 Tablet 022 Active Aspirin EC 81 MG Oral Tablet Delayed ReleaseIndications:Old cerebrovascular accident (CVA) without late effect Take by mouth 1 Tablet in the morning. 100 Tablet 3 022 Active Ipratropium-Albuterol 0.5-2.5 (3) MG/3ML Inhalation Solution (Duoneb)Indications:Chr onic respiratory failure with hypoxia, on home oxygen therapy (HCC) Inhale 3 mL by mouth every 6 hours as needed (wheezing). One vial in nebulizer every six hour as needed 120 mL 022 Active Zoster Vac Recomb Adjuvanted 50 MCG/0.5ML Intramuscular Suspension Reconstituted (Shingrix)Indications:N eed for shingles vaccine Inject 0.5 mL into a large muscle now and repeat dose in 60 to 180 days 1 Each 1 023 Active hydrOXYzine HCl 25 MG Oral TabletIndications:Panic attacks TAKE ONE TABLET BY MOUTH EVERY DAY NEED FOR ANXIETY AND FOR SLEEP AT BEDTIME 30 Tablet 2 023 Active Escitalopram Oxalate 20 MG Oral Tablet (Lexapro)Indications:An xiety TAKE ONE TABLET BY MOUTH EVERY MORNING 90 Tablet 024 Active Trelegy Ellipta 100-62.5-25 MCG/ACT Aerosol Powder Breath Activated (Fluticasone-Umeclidini um-Vilanterol) INHALE ONE PUFF BY MOUTH EVERY DAY IN THE MORNING. RINSE MOUTH AFTER USE. STOP ANORO INHALER. 180 Each 1 024 Active Atorvastatin Calcium 10 MG Oral Tablet (Lipitor)Indications:Pu re hypercholesterolemia TAKE ONE TABLET BY MOUTH EVERY MORNING 90 Tablet 1 024 Active Cyclobenzaprine HCl 5 MG Oral Tablet (Flexeril)Indications: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 --appointment needed with PCP for any additional refills 30 Tablet 024 Active Mirtazapine 7.5 MG Oral Tablet (Remeron)Indications:De creased appetite,Weight loss TAKE ONE TABLET BY MOUTH AT BEDTIME 90 Tablet 1 024 Active Albuterol Sulfate 1.25 MG/3ML Inhalation Nebulization SolutionIndications:Chr onic respiratory failure with hypoxia (HCC),COPD, group D, by GOLD 2017 classification (HCC) INHALE 1 VIAL (1.25MG )VIA NEBULIZER EVERY 6 HOURS NEEDED FOR WHEEZING 150 mL 5 025 Active documented as of this encounter (statuses as of 05/28/2024) Active Problems Problem Noted Date Diagnosed Date Contracture of hand 01/30/2023 Severe protein-calorie malnutrition 11/01/2021 Recurrent major depressive disorder, in partial remission 07/13/2020 Tobacco abuse 07/13/2020 History of hypertension 01/05/2020 Hyperparathyroidism 08/12/2019 Congenital single kidney 07/24/2019 Overview (01/30/2021): ICD-10 update of inactive term History of chronic renal failure 07/24/2019 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/24/2019 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/01/2021): Due to splenectomy Moderate mitral regurgitation 03/24/2019 Pure hypercholesterolemia 12/15/2018 COPD, group D, by GOLD 2017 classification 10/06 Overview: Per COPD GOLD Classification Chronic respiratory failure with hypoxia 019 Old cerebrovascular accident (CVA) without late effect 08/23/2017 History of splenectomy 07/24/2017 H/O: lung cancer 12/21/2016 Diastolic dysfunction 06/07/2016 Osteoporosis 10/07/2015 Lumbar spinal stenosis 06/20/2015 MEDICATION USE AGREEMENT 05/07/2014 Pulmonary HTN 04/09/2012 Esophageal reflux 01/10/2010 Overview (01/10/2010): In 2004, diagnosed with fungal esophagitis, treated around chemo documented as of this encounter (statuses as of 05/28/2024) Resolved Problems Problem Noted Date Diagnosed Date Resolved Date Major depressive disorder, r ecurrent, unspecified 08/12/2019 07/13/2020 Weight loss 07/24/2019 09/23/2019 Sacroiliitis 02/05/2018 03/24/2019 Low serum cortisol level 03/04/2016 COPD (chronic obstructive pu lmonary disease) with emphysema 01/15/2015 05/10/2015 Chronic back pain 05/14/2014 07/24/2017 Depression 01/25/2014 08/12/2019 Kidney disease, chronic, sta ge III (GFR 30-59 ml/min) 03/13/2012 07/24/2019 Hypersplenism 05/16/2011 07/24/2017 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 12/21/2016 Overview (05/16/2011): 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 05/03/2010 12/21/2016 UNCERTAIN BEHAVIOR - NEOPLASM ADRENAL 03/05/2010 05/03/2010 HTN, goal below 140/90 02/22/201001/18 Myalgia and myositis 01/10/2010 018 Overview (01/10/2010): In both breasts bilaterally, since surgery 2003 treated with chiropractor and medications Dyslipidemia, goal LDL below 130 01/10/2010 07/07/2013 Overview (01/10/2010): Treated with diet Herpes zoster 01/10/2010 12/21/2016 Overview (01/10/2010): In October ADVANCE DIRECTIVE INFORMATION 12/01/2004 03/02/2024 Overview (12/01/2004): Yes, Copy scanned at patient level in the electronic medical record.(Go to Action, Patient File to view) Patient aware they must notify their healthcare provider of changes. Anemia in neoplastic disease 11/18/2003 12/21/2016 MAL BHUPENDRA LYMPH-INTRATHOR 10/11/200311/28 MAL BHUPENDRA UPPER LOBE LUNG 10/11/200311/28 COPD, moderate 10/08/2018 Overview: Per COPD GOLD Classification documented as of this encounter (statuses as of 05/28/2024) Immunizations Name Administration Dates Next Due COVID-19 mRNA, LNP-s, No Pre serve, 2-Dose Series (Moderna) 05/05/2023 COVID-19 mRNA, LNP-s, No Pre serve, 2-Dose Series (Pfizer) 08/03/2020,07/11/2020,05/05/2020 HIB PRP-T, 4 Dose, PF, IM (H iberix, ActHib) 04/03/2010 Haemophilius B (HIB), unspecified 04/03/2010 Meningococcal B, 2/3-Dose Se chuy (TRUMENBA) 07/11/2018,11/28/2017 Meningococcal Conjugate Vacc ine (Menactra/Menveo) 10/17/2017,09/21/2014 Meningococcal MCV4P Conjugat e Vaccine (Menactra) 10/17/2017,09/21/2014 Meningococcal Polysaccharide Vaccine (Menommune) 04/03/2010 Pneumococcal Conjugate Vacc, 13 Valent (Prevnar) 03/23/2013 Pneumococcal Polysaccharide PPV23 (Pneumovax) 08/28/2007 RSV Vac., Recomb, Adjuvant, PF,0.5 Ml (Arexvy) 06/06/2023 Seasonal Influenza Vac, Quad , Cell Cult, PF, 6 Mos and Up, IM, (Flucelvax Quad) 05/05/2023 Seasonal Influenza Vac., MDV , IM, 0.5 mL (Fluzone) 01/25/2014,01/14/2013,03/13/2012,12/29,01/24/2010 Seasonal Influenza Virus Vac cine, Unspecified Formulation 03/12/2019,01/10/2018,03/11/2017,01/27,01/25/2014,01/14/2013,03/13/20 12,01/18/2011,01/24/2010 Seasonal Influenza, High Dos e, Trivalent, PF, IM (Fluzone HD) 02/10/2016 02/09/2017 Seasonal Influenza, PF, 6 M & above, IM , (FluLaval or Fluzone) 01/10/2018,03/11/2017 Seasonal Influenza, Quadriva lent Hd (Fluzone Hd) 01/17/2021 Seasonal Influenza, Quadriva lent Hd, 65+ Yrs 02/06/2020 Seasonal Influenza, Quadriva lent, No Preserve, IM 05/10/2015 Seasonal Influenza, Trivalen t, Adjuvanted, 65+ YRS, PF, (Fluad) 03/12/2019 TDAP (age 10 and older)(Boostrix) 06/04/2016 Varicella Zoster Vaccine (Adult) 02/06/2010 documented as of this encounter Social History Tobacco Use Types Packs/Day Years Used Date Smoking Tobacco: Former Cigarettes 1 50 Smokeless Tobacco: Never Alcohol Use Standard Drinks/Week Comments Never 0 (1 standard drink = 0.6 oz pur e alcohol) rare 1-2/month PHQ-2 Answer Date Recorded PHQ-2 Score -1 01/18/2020 Utilities Answer Date Recorded Do you have trouble paying y our heating, water, or electric bill? (Adult - for ages 18 years and over) Not on file 10/15/2023 Is your family able to pay t he heat, water, or electric bill? (Household - for ages 0-17 years) Not on file 10/15/2023 Does your family have access to good internet? (Household - for ages 0-17 years) Not on file 10/15/2023 Social Connections Answer Date Recorded How often do you feel lonely or isolated from those around you? (Adult - for ages 18 years and over) Not on file 10/15/2023 Comments No Sex and Gender Information Value Date Recorded Sex Assigned at Female 12/15/2018 2:05 PM EDT Legal Sex Female 7:12 AM EST Gender Identity Female 12/15/2018 2:05 PM EDT Sexual Orientation Choose not to disclose 2018 2:05 PM EDT Occupation Industry Job Start Date Job End Date retired Not on file Not on file Not on file documented as of this encounter Miscellaneous Notes * Telephone Encounter - Ron Ortega MD - 05/28/2024 1:00 PM EST Is there someone specific she wants to see? We don't have geriatrics out here in [place]. I do deal with geriatic patients, but she is free to see who she wants * Telephone Encounter - Angela Erwin LPN - 05/28/2024 12:55 PM EST Unsure of what referral this would be * Telephone Encounter - Yumiko Cottrell OSA - 05/28/2024 9:46 AM EST Patient calling in to check on the status of previous message. Patient Called within forms 5-7 business day turnaround timeframe. Reminded patient of - policy for forms requests. * Telephone Encounter - Radha Sutherland OSA - 05/25/2024 9:51 AM EST An order was requested for this patient. Name of Requesting Provider: thuy Order Requested: geriatric medicine Diagnosis/Reason for Request: patient would like to move to geriatric [facility], needing a referral to doso. What location AND department does the patient wish to have their order completed at? [facility] Fax Number, if applicable: na If the caller is not a current patient, please advise the patient to call their current PCP to havethe order's prior to being seen in our office. The patient was informed that our providers would not order anything (medication, labs, etc.) prior to being seen. documented in this encounter Plan of Treatment Upcoming Encounters Date Type Department Care Team (Late st Contact Info) Description 06/02/2024 4:00 PM EST Telemedicine Endocrinology [address] [phone] Trinidad Horner PA-C [address] [place] [phone] 06/11/2024 3:30 PM EST Office Visit Pulmonary Medicine, [facility] [address] [place] [address] Antonio Srivastava MD [address] [facility] [place] [phone] 08/05/2024 10:40 AM EDT Telemedicine General Internal Medicine [facility] [address] [place] [address] Ron Ortega MD [address] [place] [address] Health Maintenance Due Date Last Done Comments Alpha-1 Antitrypsin 01/26/1958 Zoster Vaccines (2 of 3) 04/03/2010 02/06/2010 Adult Wellness Visit 03/21/2017 03/21/2016 Meningitis B Vaccine (Bexsero/Trumemba) (3 of 4 - Increased Risk Trumenba 3-dose series) 07/12/2019 07/11/2018, 11/28/2017 DXA Scan 11/01/2019 10/31/2017, 08/29, 2010, Additional history exists *BISPHONATE OR OTHER ACCEPTABLE MEDICATION NEEDED FOR OSTEOPOROSIS (REFER TO SMARTSET #1146) 11/05/2019 Depression Monitoring 03/24/2020 03/24/2019 MENINGOCOCCAL (MENACTRA/MENVEO) (3 - Risk 2-dose series) 10/17/2022 10/17/2017, 10/17/2017, 09/21/2014, Additional history exists COVID-19 Vaccine ( season) 2023 05/05/2023, 10/26/2021, 08/03/2020, Additional history exists Influenza Vaccine (FLU shot) (#1) 2023 05/05/2023, 01/17/2021, 02/06/2020, Additional history exists O2 ASSESSMENT COMPLETED IN PAST YEAR FOR COPD 06/07/2024 06/07/2023 DTap/Tdap Vaccines (2 - Td or Tdap) 06/04/2026 06/04/2016 Pneumococcal Vaccine: 50+ Years Completed 03/23/2013, 08/28/2007 VITAMIN D LEVEL ONCE IN A LIFETIME-USE SMARTSET# 60383 Completed 03/10/2024, 01/17/2021, 04/05/2020, Additional history exists HPV (Gardasil) Vaccine Aged Out No lo nger eligible based on patient's age to complete this topic Hepatitis B Vaccine Aged Out No longe r eligible based on patient's age to complete this topic documented as of this encounter Medical Devices Not on filedocumented as of this encounter Advance Directives * Full Code (Latest Code Status on File) Date Activated Date Inactivated Comments 03/31/2010 1:40 PM 04/06/2010 4:12 PM This order r eflects the patients wishes and were consensually agreed upon. Question Answer Comments Discussion of Advance Directives occurred with: Patient * No Code Status Date Activated Date Inactivated Comments 11/18/2003 10:18 AM 11/18/2003 10:18 AM Care Teams Tool Repairer Relationship Specialty Start Date End Date Ron Ortega MD [address] [facility] [place], [place] [address] PCP - General Internal Medicine 08/23/17 documented as of this encounter
--- OUTSIDE RECORDS SUMMARY | 2024-06-02 01:48 | External Medical Summary | Summary of Care ---
Author Name Unknown Organization [facility] Address [address] [place] [address] Phone [phone] Care Team Providers Care Leak Inspector Name Role Phone Ron Long MD Primary Care Provider + Reason for Visit * Reason Comments eRx-Medication Refill Encounter Details Date Type Department Care Team ([facility] st Contact Info) Description 04/17/2024 Refill General Internal Medicine [facility] [address] [place] [address] Ron Long MD [address] [place] [address] Decreased appetite; Weight loss Allergies Active Allergy Reactions Criticality Noted Date Comments Adhesive Tape 02/15/2017 Codeine Rash Medium 10/16/2010 Levofloxacin Edema airway High 10/15/2017 Lidocaine Other (Please comment) 02/23/2010 unknown Penicillins Rash 10/14/2000 documented as of this encounter (statuses as of 04/18/2024) Medications oxygen GASIndications:Hypoxia Use 2 L/min(Oxygen) as directed continuous. 1 Each 2016 Active Coenzyme Q10 (COQ10) 100 MG CAPS Once daily, unsure of dose. Active acetaminophen (TYLENOL) 500 MG Tablet Take 1 Tablet by mouth every 6 hours as needed. 100 Tab 2019 Active Probiotic Product (ALIGN) Capsule Take 1 Capsule by mouth in the morning. 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 NURSING, PT/OT. DX: METABOLIC ENCEPHALOPATH Y, COPD, HX OF LUNG CANCER, RESPIRATORY FAILURE WITH HYPOXEMIA 1 Each 1 2021 Active PreserVision AREDS Oral Tablet Take by mouth 1 Tablet in the morning. 30 Tablet 2021 Active Aspirin EC 81 MG Oral Tablet Delayed ReleaseIndications:Old cerebrovascular accident (CVA) without late effect Take by mouth 1 Tablet in the morning. 100 Tablet 3 2021 Active Ipratropium-Albuterol 0.5-2.5 (3) MG/3ML Inhalation Solution (Duoneb)Indications:Ch ronic respiratory failure with hypoxia, on home oxygen therapy ([facility]) Inhale 3 mL by mouth every 6 hours as needed (wheezing). One vial in nebulizer every six hour as needed 120 mL 2021 Active Zoster Vac Recomb Adjuvanted 50 MCG/0.5ML Intramuscular Suspension Reconstituted (Shingrix)Indications: Need for shingles vaccine Inject 0.5 mL into a large muscle now and repeat dose in 60 to 180 days 1 Each 1 2022 Active hydrOXYzine HCl 25 MG Oral TabletIndications:Artis c attacks TAKE ONE TABLET BY MOUTH EVERY DAY NEED FOR ANXIETY AND FOR SLEEP AT BEDTIME 30 Tablet 2 2022 Active Albuterol Sulfate 1.25 MG/3ML Inhalation Nebulization SolutionIndications:Ch ronic respiratory failure with hypoxia (HCC),COPD, group D, by GOLD 2017 classification ([facility]) INHALE 1.25MG (1 VIAL) VIA NEBULIZER EVERY 6 HOURS NEEDED FOR WHEEZING 150 mL 5 2023 Active Escitalopram Oxalate 20 MG Oral Tablet (Lexapro)Indications:A nxiety TAKE ONE TABLET BY MOUTH EVERY MORNING 90 Tablet 2023 Active Trelegy Ellipta 100-62.5-25 MCG/ACT Aerosol Powder Breath Activated (Fluticasone-Umeclidin ium-Vilanterol) INHALE ONE PUFF BY MOUTH EVERY DAY IN THE MORNING. RINSE MOUTH AFTER USE. STOP ANORO INHALER. 180 Each 1 2023 Active Atorvastatin Calcium 10 MG Oral Tablet (Lipitor)Indications:P ure hypercholesterolemia TAKE ONE TABLET BY MOUTH EVERY MORNING 90 Tablet 1 2023 Active Cyclobenzaprine HCl 5 MG Oral Tablet (Flexeril)Indications: Chronic bilateral low back pain with bilateral sciatica Take 1 Tablet by mouth 2 times a day as needed for Muscle spasms. --appointment needed with PCP for any additional refills 30 Tablet 2023 Active Mirtazapine 7.5 MG Oral Tablet (Remeron)Indications:D ecreased appetite,Weight loss TAKE ONE TABLET BY MOUTH AT BEDTIME 90 Tablet 1 2023 Active Mirtazapine 7.5 MG Oral Tablet (Remeron)Indications:D ecreased appetite,Weight loss TAKE ONE TABLET BY MOUTH AT BEDTIME 90 Tablet 1 04/18 Discontinued documented as of this encounter (statuses as of 04/18/2024) Active Problems Problem Noted Date Diagnosed Date [...] 04/09/2012 Esophageal reflux 01/10/2010 Overview (01/10/2010): In 2003, diagnosed with fungal esophagitis, treated around chemo documented as of this encounter (statuses as of 04/18/2024) Resolved Problems Problem Noted Date Diagnosed Date [...] as of this encounter (statuses as of 04/18/2024) Immunizations Name Administration Dates Next Due COVID-19 [...] encounter Miscellaneous Notes * Telephone Encounter - Srikanth John RPh - 04/18/2024 11:28 AM EST Signed Prescriptions: Disp Refills Mirtazapine 7.5 MG Oral Tablet (Remeron) 90 Tab*1 Sig: TAKE ONE TABLET BY MOUTH AT BEDTIMEAuthorizing Provider: RON LONG User: SRIKANTH JOHN documented in this encounter Plan of Treatment Upcoming Encounters Date Type Department Care Team (Late st Contact Info) Description 08/05/2024 10:40 AM EDT Telemedicine General Internal Medicine [address] [place] [address] Ron Long MD [address] [place] [address] Health Maintenance Due Date Last Done Comments [...] Td or Tdap) 06/04/2026 06/04/2016 Pneumococcal Vaccine: 65+ Years Completed 03/23/2013, 08/28/2007 VITAMIN D LEVEL ONCE IN A LIFETIME-USE SMARTSET# 00403 Completed 03/10/2024, 01/17/2021, 04/05/2020, Additional history exists HPV (Gardasil) Vaccine Aged Out No lo nger eligible based on patient's age to complete this topic Hepatitis B Vaccine Aged Out No longe r eligible based on patient's age to complete this topic documented as of this encounter Medical Devices Not on filedocumented as of this encounter Visit Diagnoses Diagnosis Decreased appetite Anorexia Weight loss Loss of weight documented in this encounter Advance Directives * Full Code (Latest Code Status on File) Date Activated Date Inactivated Comments 03/31/2010 1:40 PM 04/06/2010 4:12 PM This order r eflects the patients wishes and were consensually agreed upon. Question Answer Comments Discussion of Advance Directives occurred with: Patient * No Code Status Date Activated Date Inactivated Comments 11/18/2003 10:18 AM 11/18/2003 10:18 AM Care Teams Leak Inspector Relationship Specialty Start Date End Date Ron Long MD [address] [place] [address] PCP - General Internal Medicine 08/23/17 documented as of this encounter
--- OUTSIDE RECORDS SUMMARY | 2024-06-02 01:48 | External Medical Summary | Summary of Care ---
Author Name Unknown Organization [facility] Address [address] [place] [address] Phone [phone] Care Team Providers Care Automatic Nailing Machine Operator Name Role Phone Ron Long MD Primary Care Provider + Reason for Visit * Reason Comments eRx-Medication Refill Encounter Details Date Type Department Care Team (Late st Contact Info) Description 04/30/2024 Refill General Internal Medicine [facility] [address] [place] [address] Ron Long MD [address] [place] [address] Chronic respiratory failure with hypoxia (HCC); COPD, group D, by GOLD 2017 classification ([facility]) Allergies Active Allergy Reactions Criticality Noted Date Comments Adhesive Tape 02/15/2017 Codeine Rash Medium 10/16/2010 Levofloxacin Edema airway High 10/15/2017 Lidocaine Other (Please comment) 02/23/2010 unknown Penicillins Rash 10/14/2000 documented as of this encounter (statuses as of 05/01/2024) Medications oxygen GASIndications:Hypoxia Use 2 L/min(Oxygen) as [...] 2022 Active hydrOXYzine HCl 25 MG Oral TabletIndications:Artsi c attacks TAKE ONE TABLET BY MOUTH EVERY DAY NEED FOR ANXIETY AND FOR SLEEP AT BEDTIME 30 Tablet 2 2022 Active Escitalopram Oxalate 20 MG Oral Tablet [...] AT BEDTIME 90 Tablet 1 2023 Active Albuterol Sulfate 1.25 MG/3ML Inhalation Nebulization SolutionIndications:Ch ronic respiratory failure with hypoxia (HCC),COPD, group D, by GOLD 2017 classification ([facility]) INHALE 1 VIAL (1.25MG )VIA NEBULIZER EVERY 6 HOURS NEEDED FOR WHEEZING 150 mL 5 2024 Active Albuterol Sulfate 1.25 MG/3ML Inhalation Nebulization SolutionIndications:Ch ronic respiratory failure with hypoxia (HCC),COPD, group D, by GOLD 2017 classification ([facility]) INHALE 1.25MG (1 VIAL) VIA NEBULIZER EVERY 6 HOURS NEEDED FOR WHEEZING 150 mL 5 05/01 Discontinued documented as of this encounter (statuses as of 05/01/2024) Active Problems Problem Noted Date Diagnosed Date [...] as of this encounter (statuses as of 05/01/2024) Resolved Problems Problem Noted Date Diagnosed Date [...] as of this encounter (statuses as of 05/01/2024) Immunizations Name Administration Dates Next Due COVID-19 [...] encounter Miscellaneous Notes * Telephone Encounter - Nohemi Ahuja RP - 05/01/2024 3:43 PM ESTSigned Prescriptions: Disp Refills Albuterol Sulfate 1.25 MG/3ML Inhalation N*150 mL 5 Sig: INHALE 1 VIAL (1.25MG )VIA NEBULIZER EVERY 6 HOURS NEEDED FOR WHEEZINGAuthorizing Provider: RON LONG User: Marily AHUJA Prescriptions: Disp Refills Trelegy Ellipta 100-62.5-25 MCG/ACT Aeroso*180 Ea*1 Refused By: Bear AHUJA for Refusal: Too soon * Telephone Encounter - Nohemi Ahuja [facility] - 05/01/2024 3:40 PM ESTSigned Prescriptions: Disp Refills Albuterol Sulfate 1.25 MG/3ML Inhalation N*150 mL 5 Sig: INHALE 1 VIAL (1.25MG )VIA NEBULIZER EVERY 6 HOURS NEEDED FOR WHEEZINGAuthorizing Provider: RON LONG User: Rosalie AHUJAused Prescriptions: Disp Refills Trelegy Ellipta 100-62.5-25 MCG/ACT Aeroso*180 Ea*1 Refused By: Bear AHUJA for Refusal: Too soon * Telephone Encounter - Bala Mckay, resource economist - 04/30/2024 10:38 AM EST Did you pend patient's preferred pharmacy and medication before forwarding?yes Pharmacy: [facility] [id number] Pending Prescriptions: Disp Refills Albuterol Sulfate 1.25 MG/3ML Inhalation *150 mL 5 Sig: INHALE 1 VIAL (1.25MG )VIA NEBULIZER EVERY 6 HOURS NEEDED FOR WHEEZING Trelegy Ellipta 100-62.5-25 MCG/ACT Aeros*180 Ea*1 Last Visit: 10/31/2022 (in office), 03/03/2024 (telemedicine) Next Visit: 08/05/2024 If no future appointments scheduled, and last appointment is greater than a year ago, please schedule patient for a follow-up appointment Last date the medication was ordered: 07/11/2023, 02/21/2024 Is this request for a controlled substance?No Urine Drug Screen: Results for orders placed or performed in visit on 07/11/18 OPIOIDS/BENZO COMPLIANCE MONITORING TEST Result Value URINE DRUG SCREEN RESULT Amphetamine NEGATIVE Barbiturates NEGATIVE Benzodiazepines NEGATIVE Cannabinoids NEGATIVE Cocaine Metabolite NEGATIVE METHADONE METABOLITE NEGATIVE Morphine / Codeine REFER TO CONFIRMATION RESULT (A) OXYCODONE REFER TO CONFIRMATION RESULT (A) COMMENT THE ABOVE SCREENING RESULTS ARE PRESUMPTIVE AND CAN ONLY BE USED FOR MEDICAL PURPOSES. CONFIRMATORY TESTING IS AVAILABLE UPON REQUEST. Cutoff Concentration URINE VALID INTERP NORMAL CREATININE ALFRED 83 Results for orders placed or performed in visit on 12/13/16 OPIOIDS/BENZO COMPLIANCE MONITORING W/INTERP Result Value COMPLIANCE INTERP (NOTE) URINE DRUG SCREEN RESULT Amphetamine NEGATIVE Barbiturates NEGATIVE Benzodiazepines NEGATIVE Cannabinoids NEGATIVE Cocaine Metabolite NEGATIVE METHADONE METABOLITE NEGATIVE Morphine / Codeine REFER TO CONFIRMATION RESULT (A) OXYCODONE REFER TO CONFIRMATION RESULT (A) COMMENT THE ABOVE SCREENING RESULTS ARE PRESUMPTIVE AND CAN ONLY BE USED FOR MEDICAL PURPOSES. CONFIRMATORY TESTING IS AVAILABLE UPON REQUEST. Cutoff Concentration URINE VALID INTERP NORMAL CREATININE ALFRED 55 NITRITE ALFRED 11 pH ALFRED 5.0 *Note: Due to a large number of results and/or encounters for the requested time period, some results have not been displayed. A complete set of results can be found in Results Review. Patient Phone Numbers Labs: Lab Results Component Value Date/Time CREAT 0.8 03/10/2024 09:01 AM CREAT 0.9 04/05/2020 01:14 PM POTASSIUM 4.6 03/10/2024 09:01 AM POTASSIUM 4.7 04/05/2020 01:14 PM TSH 0.60 10/02/2019 10:10 AM LDL 91 03/10/2024 09:01 AM LDL 63 01/12/2020 12:38 PM LDL NOT APPLICABLE 01/12/2020 12:38 PM LDLCALC 119 11/14/2009 11:24 AM LDLCALC 119 11/14/2009 11:24 AM ALT 11 03/10/2024 09:01 AM ALT 12 04/05/2020 01:14 PM HGBA1C 5.3 11/14/2009 11:24 AM documented in this encounter Plan of Treatment Upcoming Encounters Date Type Department Care Team (Late st Contact Info) Description 08/05/2024 10:40 AM EDT Telemedicine General Internal Medicine [facility] [address] [facility] [place] [address] Ron Long MD 200 [facility] [place] [address] Health Maintenance Due Date Last Done Comments [...] D LEVEL ONCE IN A LIFETIME-USE SMARTSET# [id number] Completed 03/10/2024, 01/17/2021, 04/05/2020, Additional history exists HPV (Gardasil) Vaccine Aged Out No lo nger eligible based on patient's age to complete this topic Hepatitis B Vaccine Aged Out No longe r eligible based on patient's age to complete this topic documented as of this encounter Medical Devices Not on filedocumented as of this encounter Visit Diagnoses Diagnosis Chronic respiratory failure with hypoxia (HCC) Chronic respiratory failure COPD, group D, by GOLD 2017 classification (HCC) documented in this encounter Advance Directives * [...] 10:18 AM 11/18/2003 10:18 AM Care Teams Automatic Nailing Machine Operator Relationship Specialty Start Date End Date Ron Long MD 200 [place] [address] PCP - General Internal Medicine 08/23/17 documented as of this encounter
--- OUTSIDE RECORDS SUMMARY | 2024-06-02 01:48 | External Medical Summary | Summary of Care ---
Author Name Unknown Organization [facility] Address [address] [place] [address] Phone [phone] Care Team Providers Care International Representative Name Role Phone Ron Ortega MD Primary Care Provider + Reason for Visit * Reason Onset Date Comments Order Request 05/25/2024 Geriatric referr al Encounter Details Date Type Department Care Team ([facility] Contact Info) Description 05/25/2024 Telephone General Internal Medicine [facility] [address] [place] [address] Ron Ortega MD [address] [place] [address] Order Request (Geriatric referral) Allergies Active Allergy [...] We don't have geriatrics out here in [place]. I do deal with elderly patients, but she is free to see [...] business day turnaround timeframe. Reminded patient of 5-7 day policy for forms requests. * Telephone Encounter - Radha Sutherland OSA - 05/25/2024 9:51 AM EST An order was requested for this patient. Name of Requesting Provider: thuy Order Requested: geriatric medicine Diagnosis/Reason for Request: patient would like to move to geriatric [facility], needing a referral to doso. What location AND department does the patient wish to have their order completed at? [facility] Fax Number, if applicable: na If the [...] PM EST Telemedicine Endocrinology [address] [place] [phone] Trinidad Horner PA-C [address] [place] [address] 06/11/2024 3:30 PM EST Office Visit Pulmonary Medicine, [facility] [address] [place] [address] Antonio Srivastava MD [address] [place] [address] 08/05/2024 10:40 AM EDT Telemedicine General Internal Medicine [facility] [place] [address] [facility] [place] [address] Ron Ortega MD 200 [facility] [place] [address] Health Maintenance Due Date Last Done Comments [...] D LEVEL ONCE IN A LIFETIME-USE SMARTSET# [id number] Completed 03/10/2024, 01/17/2021, 04/05/2020, Additional history exists [...] 10:18 AM 11/18/2003 10:18 AM Care Teams International Representative Relationship Specialty Start Date End Date Ron Ortega MD 200 [place] [address] PCP - General Internal Medicine 08/23/17 documented as of this encounter
--- OUTSIDE RECORDS SUMMARY | 2024-06-02 01:48 | External Medical Summary | Summary of Care ---
Author Name Unknown Organization [facility] Address [address] [place] [address] Phone [phone] Care Team Providers Care Process Tank Tender Name Role Phone Ron Ortega MD Primary Care Provider + Reason for Visit * Reason Onset Date Comments Order Request 05/25/2024 Geriatric referr al Encounter Details Date Type Department Care Team ([facility] Contact Info) Description 05/25/2024 Telephone General Internal Medicine [facility] [address] [place] [address] Ron Ortega MD [address] [place] [address] Order Request (Geriatric referral) Allergies Active Allergy [...] encounter Miscellaneous Notes * Telephone Encounter - Yumiko Cottrell OSA [...] patient would like to move to geriatric GI, needing a referral to doso. What location AND department does the patient wish to have their order completed at? [facility] Fax Number, if applicable: na If the [...] [address] [place] [phone] Trinidad Horner PA-C [address] [place] [address] [address] 06/11/2024 3:30 PM EST Office Visit Pulmonary Medicine, [facility] [address] [facility] [place] [id number] Antonio Srivastava MD [address] [place] [address] 08/05/2024 10:40 AM EDT Telemedicine General Internal Medicine [facility] [address] [place] [address] Ron Ortega MD 200 [facility] [place] [place] [address] Health Maintenance Due Date Last Done Comments [...] D LEVEL ONCE IN A LIFETIME-USE SMARTSET# [id number] Completed 03/10/2024, 01/17/2021, 04/05/2020, Additional history exists [...] 10:18 AM 11/18/2003 10:18 AM Care Teams Process Tank Tender Relationship Specialty Start Date End Date Ron Ortega MD [address] [place] [address] PCP - General Internal Medicine 08/23/17 documented as of this encounter
--- OUTSIDE RECORDS SUMMARY | 2024-06-02 01:48 | External Medical Summary | Summary of Care ---
Author Name Unknown Organization [facility] Address [address] [place] [address] Phone [phone] Care Team Providers Care Public Stenographer Name Role Phone Ron Ortega MD Primary Care Provider + Reason for Visit * Reason Onset Date Comments Referral 05/28/2024 Encounter Details Date Type Department Care Team ([facility] st Contact Info) Description 05/28/2024 Telephone General Internal Medicine [facility] [address] [place] [address] Ron Ortega MD [address] [place] [address] Referral Allergies Active Allergy Reactions Criticality Noted Date Comments Adhesive Tape 02/15/2017 Codeine Rash Medium 10/16/2010 Levofloxacin Edema airway High 10/15/2017 Lidocaine Other (Please comment) 02/23/2010 unknown Penicillins Rash 10/14/2000 documented as of this encounter (statuses as of 06/01/2024) Medications oxygen GASIndications:Hypoxia Use 2 L/min(Oxygen) as directed continuous. 1 Each 017 Active Coenzyme Q10 (COQ10) 100 MG CAPS Once daily, unsure of dose. Active acetaminophen (TYLENOL) 500 MG Tablet Take 1 Tablet by mouth every 6 hours as needed. 100 Tab 07/31/2 020 Active Probiotic Product (ALIGN) Capsule Take 1 Capsule by mouth in the morning. 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 NURSING, PT/OT. DX: METABOLIC ENCEPHALOPATHY , COPD, HX OF LUNG CANCER, RESPIRATORY FAILURE WITH HYPOXEMIA 1 Each 1 Active PreserVision AREDS Oral Tablet Take by mouth 1 Tablet in the morning. 30 Tablet Active Aspirin EC 81 MG Oral Tablet Delayed ReleaseIndications:Old cerebrovascular accident (CVA) without late effect Take by mouth 1 Tablet in the morning. 100 Tablet 3 Active Ipratropium-Albuterol 0.5-2.5 (3) MG/3ML Inhalation Solution (Duoneb)Indications:Chr onic respiratory failure with hypoxia, on home oxygen therapy (HCC) Inhale 3 mL by mouth every 6 hours as needed (wheezing). One vial in nebulizer every six hour as needed 120 mL Active Zoster Vac Recomb Adjuvanted 50 MCG/0.5ML [...] TABLET BY MOUTH EVERY MORNING 90 Tablet Active Trelegy Ellipta 100-62.5-25 MCG/ACT Aerosol Powder Breath Activated (Fluticasone-Umeclidini um-Vilanterol) INHALE ONE PUFF BY MOUTH EVERY DAY IN THE MORNING. RINSE MOUTH AFTER USE. STOP ANORO INHALER. 180 Each 1 Active Atorvastatin Calcium 10 MG Oral Tablet [...] as of this encounter (statuses as of 06/01/2024) Active Problems Problem Noted Date Diagnosed Date [...] as of this encounter (statuses as of 06/01/2024) Resolved Problems Problem Noted Date Diagnosed Date [...] as of this encounter (statuses as of 06/01/2024) Immunizations Name Administration Dates Next Due COVID-19 [...] encounter Miscellaneous Notes * Telephone Encounter - Sully Jackson OSA - 06/01/2024 8:39 AM EST Spoke to caregiver (adolfo) and scheduled the apt in june soonest avail with PCP * Telephone Encounter - Aliyah Orellana CMA - 05/30/2024 10:58 AM EST Can be with any provider if patient is agreeable * Telephone Encounter - Sully Jackson OSA - 05/29/2024 8:34 AM EST Due to the pt needing a 40min first avail with PCP would not be till june, Should I get her in with another provider? * Telephone Encounter - Ron Ortega MD - 05/28/2024 5:19 PM EST I would suggest a visit to discuss. I have not seen her in some time, hasn't been in office in overa year * Telephone Encounter - Angela Erwin LPN - 05/28/2024 4:50 PM EST Referral or appt here? * Telephone Encounter - Padmini Ac OSA - 05/28/2024 10:57 AM EST Has the patient been seen for this problem? (Y/N)?: yes If No, an appt needs to be scheduled before a referral will be placed (exception: proceed with referral request if referral request is for a yearly routine appointment with speciality) Patient Name: Concepción Jacob Patient Primary care provider: Ron Ortega MD Does this need to be an insurance referral (Y/N)?: yes If Yes, does the insurance referral need to be placed into the [employer] system? Name of preferred specialist: Type of specialist: cardiology [facility] Phone #: Specialist's Fax #: [phone] Reason for visit: coughing, check to see if its not cardiac related Date of visit: waiting for referral documented in this encounter Plan of Treatment Upcoming Encounters Date Type Department Care Team (Late st Contact Info) Description 06/02/2024 4:00 PM EST Telemedicine Endocrinology [address] [place] [address] Trinidad Horner [facility] [address] [place] [address] 06/11/2024 3:30 PM EST Office Visit Pulmonary Medicine, [facility] [address] [facility] [place] [address] Antonio Srivastava MD [address] [place] [address] 07/02/2024 2:20 PM EST Telemedicine General Internal Medicine [facility] [address] [place] [address] Ron Ortega MD 200 [place] [address] Health Maintenance Due Date Last Done Comments [...] D LEVEL ONCE IN A LIFETIME-USE SMARTSET# [id number] Completed 03/10/2024, 01/17/2021, 04/05/2020, Additional history exists [...] 10:18 AM 11/18/2003 10:18 AM Care Teams Public Stenographer Relationship Specialty Start Date End Date Ron Ortega MD 200 [place] [address] PCP - General Internal Medicine 08/23/17 documented as of this encounter
--- OUTSIDE RECORDS SUMMARY | 2024-06-02 01:48 | External Medical Summary | Summary of Care ---
Author Name Unknown Organization [facility] Address [address] [place] [address] Phone [phone] Care Team Providers Care Lens Edge Grinder Machine Name Role Phone Ron Ortega MD Primary Care Provider + Reason for Visit * Reason Onset Date Comments Order Request 05/25/2024 Geriatric referr al Encounter Details Date Type Department Care Team ([facility] Contact Info) Description 05/25/2024 Telephone General Internal Medicine [facility] [address] [place] [address] Ron Ortega MD [address] [place] [address] Order Request (Geriatric referral) Allergies Active Allergy Reactions Criticality Noted Date Comments Adhesive Tape 02/15/2017 Codeine Rash Medium 10/16/2010 Levofloxacin Edema airway High 10/15/2017 Lidocaine Other (Please comment) 02/23/2010 unknown Penicillins Rash 10/14/2000 documented as of this encounter (statuses as of 05/29/2024) Medications oxygen GASIndications:Hypoxia Use 2 L/min(Oxygen) as [...] as of this encounter (statuses as of 05/29/2024) Active Problems Problem Noted Date Diagnosed Date [...] as of this encounter (statuses as of 05/29/2024) Resolved Problems Problem Noted Date Diagnosed Date [...] as of this encounter (statuses as of 05/29/2024) Immunizations Name Administration Dates Next Due COVID-19 [...] We don't have geriatrics out here in [place]. I do deal with geriatic patients, but [...] would like to move to geriatric [facility], needing a referral to doso. What location AND department does the patient wish to have their order completed at? [facility] Fax Number, if applicable: na If the [...] Trinidad Horner PA-C [address] [place] [address] 06/11/2024 3:30 PM EST Office Visit Pulmonary Medicine, [facility] [address] [place] [address] Antonio Srivastava MD [address] [facility] [place] [id number] 08/05/2024 10:40 AM EDT Telemedicine General Internal Medicine [facility] [address] [facility] [place] [address] Ron Ortega MD 200 [facility] [place] [address] Health Maintenance Due Date Last Done Comments [...] D LEVEL ONCE IN A LIFETIME-USE SMARTSET# [id number] Completed 03/10/2024, 01/17/2021, 04/05/2020, Additional history exists [...] 10:18 AM 11/18/2003 10:18 AM Care Teams Lens Edge Grinder Machine Relationship Specialty Start Date End Date Ron Ortega MD 200 [facility] [place], [place] [address] PCP - General Internal Medicine 08/23/17 documented as of this encounter
--- OUTSIDE RECORDS SUMMARY | 2024-06-02 01:48 | External Medical Summary | Summary of Care ---
Author Name Unknown Organization [facility] Address [address] [place] [address] Phone [phone] Care Team Providers Care Warehouse Team Member Name Role Phone Ron Ortega MD Primary Care Provider + Reason for Referral * Evaluate & Treat - Unlimited Visits (Within 30 days (routine)) - Authorized Specialty Diagnoses / Procedures Referred By Contac t Referred To Contact Endocrinology/Metabolism / Endocrinology Diagnoses Hypercalcemia Jumana Mars MD [address] [place] [address] [place] [address] Phone: tel: fax: Referral ID Status Reason Start Date Expiration Date Visits Requested Visits Authorized [id number] Authorized Specialty Services Required 03/30/2024 999 [id number] Question Answer Referral Priority Within 30 days (routine) Where should this appointment be scheduled? [facility] For what condition is the patient being referred? Thyroid Issues For which thyroid condition are you referring? Hyperthyroid Reason for Visit * Reason Onset Date Comments Test Results Lab 03/30/2024 Encounter Details Date Type Department Care Team ([facility] Contact Info) Description 03/30/2024 Telephone General Internal Medicine [address] [place] [address] [facility] [place] [address] Jumana Mars MD [address] [facility] [place] [address] Test Results Lab Allergies Active Allergy Reactions Criticality Noted Date Comments Adhesive Tape 02/15/2017 Codeine Rash Medium 10/16/2010 Levofloxacin Edema airway High 10/15/2017 Lidocaine Other (Please comment) 02/23/2010 unknown Penicillins Rash 10/14/2000 documented as of this encounter (statuses as of 04/07/2024) Medications oxygen GASIndications:Hypoxia Use 2 L/min(Oxygen) as [...] AT BEDTIME 30 Tablet 2 023 Active Albuterol Sulfate 1.25 MG/3ML Inhalation Nebulization SolutionIndications:Chr onic respiratory failure with hypoxia (HCC),COPD, group D, by GOLD 2017 classification (HCC) INHALE 1.25MG (1 VIAL) VIA NEBULIZER EVERY 6 HOURS NEEDED FOR WHEEZING 150 mL 5 024 Active Mirtazapine 7.5 MG Oral Tablet (Remeron)Indications:De creased appetite,Weight loss TAKE ONE TABLET BY MOUTH AT BEDTIME 90 Tablet 1 024 Active Escitalopram Oxalate 20 MG Oral Tablet [...] any additional refills 30 Tablet 024 Active documented as of this encounter (statuses as of 04/07/2024) Active Problems Problem Noted Date Diagnosed Date [...] as of this encounter (statuses as of 04/07/2024) Resolved Problems Problem Noted Date Diagnosed Date [...] as of this encounter (statuses as of 04/07/2024) Immunizations Name Administration Dates Next Due COVID-19 [...] Telephone Encounter - Sully Jackson OSA - 04/07/2024 11:30 AM EST denied scheduling. message said once order is triaged dept will contact pt * Telephone Encounter - Jumana Mars MD - 03/30/2024 4:02 PM EST Noted, pl brielle * Telephone Encounter - Aliyah Orellana CMA - 03/30/2024 2:43 PM EST Spoke to patient's caregiver regarding message below. She is currently taking OTC calcium which they will discontinue. Agreeable for Endo telemed, referral pended. * Telephone Encounter - Aliyah Orellana CMA - 03/30/2024 2:43 PM EST ----- Message from Jumana Mars MD sent at 03/11/2024 5:00 PM EST ----- Normal CMP except calcium elevated 10.9, PTH 71, vitamin-D 62, stable CBC, lipids. -make sure not taking any [id number] calcium supplements - if willing to be evaluated by Endocrinology telemed visit, nurse to pend referral documented in this encounter Plan of Treatment Upcoming Encounters Date Type Department Care Team (Late st Contact Info) Description 08/05/2024 10:40 AM EDT Telemedicine General Internal Medicine [place] [address] [address] [facility] [place] [address] Ron Ortega MD [address] [facility] [place] [address] Scheduled Referrals Name Type Priority Associated Diagnoses Order Schedule ADULT ENDOCRINOLOGY REFERRAL OP Referral Within 30 days (routine) Hypercalcemia Ordered: 03/30/2024 Health Maintenance Due Date Last Done Comments [...] D LEVEL ONCE IN A LIFETIME-USE SMARTSET# [id number] Completed 03/10/2024, 01/17/2021, 04/05/2020, Additional history exists HPV (Gardasil) Vaccine Aged Out No lo nger eligible based on patient's age to complete this topic Hepatitis B Vaccine Aged Out No longe r eligible based on patient's age to complete this topic documented as of this encounter Medical Devices Not on filedocumented as of this encounter Visit Diagnoses Diagnosis Hypercalcemia- Primary documented in this encounter Advance Directives * [...] 10:18 AM 11/18/2003 10:18 AM Care Teams Warehouse Team Member Relationship Specialty Start Date End Date Ron Ortega MD [address] [place] [address] PCP - General Internal Medicine 08/23/17 documented as of this encounter
--- OUTSIDE RECORDS SUMMARY | 2024-06-02 01:48 | External Medical Summary | Summary of Care ---
Author Name Unknown Organization [facility] Address [address] [place] [address] Phone [phone] Care Team Providers Care Auto Bumper Straightener Name Role Phone Ron Ortega MD Primary Care Provider + Reason for Visit * Reason Onset Date Comments Referral 05/28/2024 Encounter Details Date Type Department Care Team ([facility] st Contact Info) Description 05/28/2024 Telephone General Internal Medicine [facility] [address] [place] [address] Ron Ortega MD [address] [place] [address] Referral Allergies Active Allergy Reactions Criticality Noted Date Comments Adhesive Tape 02/15/2017 Codeine Rash Medium 10/16/2010 Levofloxacin Edema airway High 10/15/2017 Lidocaine Other (Please comment) 02/23/2010 unknown Penicillins Rash 10/14/2000 documented as of this encounter (statuses as of 05/30/2024) Medications oxygen GASIndications:Hypoxia Use 2 L/min(Oxygen) as [...] as of this encounter (statuses as of 05/30/2024) Active Problems Problem Noted Date Diagnosed Date [...] as of this encounter (statuses as of 05/30/2024) Resolved Problems Problem Noted Date Diagnosed Date [...] as of this encounter (statuses as of 05/30/2024) Immunizations Name Administration Dates Next Due COVID-19 [...] encounter Miscellaneous Notes * Telephone Encounter - Aliyah Orellana CMA [...] referral need to be placed into the [facility] system? Name of preferred specialist: Type of specialist: cardiology [facility] Phone #: Specialist's Fax #: [phone] Reason for visit: coughing, check to see if its not cardiac related Date of visit: waiting for referral documented in this encounter Plan of Treatment Upcoming Encounters Date Type Department Care Team (Late st Contact Info) Description 06/02/2024 4:00 PM EST Telemedicine Endocrinology [address] [place] [address] Trinidad Horner PA-C [address] [place] [address] 06/11/2024 3:30 PM EST Office Visit Pulmonary Medicine, [facility] [address] [place] [address] Antonio Srivastava MD [address] [facility] [place] [id number] 08/05/2024 10:40 AM EDT Telemedicine General Internal Medicine [facility] [address] [place] [address] Ron Ortega MD 200 [facility] [place] [address] Health Maintenance Due Date Last Done Comments [...] D LEVEL ONCE IN A LIFETIME-USE SMARTSET# [id number] Completed 03/10/2024, 01/17/2021, 04/05/2020, Additional history exists [...] 10:18 AM 11/18/2003 10:18 AM Care Teams Auto Bumper Straightener Relationship Specialty Start Date End Date Ron Ortega MD 200 [facility] [place] [address] PCP - General Internal Medicine 08/23/17 documented as of this encounter
--- OUTSIDE RECORDS SUMMARY | 2024-06-02 01:48 | External Medical Summary | Summary of Care ---
Author Name Unknown Organization [facility] Address [address] [place] [address] Phone [phone] Care Team Providers Care Coal Deliverer Name Role Phone Ron Ortega MD Primary Care Provider + Reason for Visit * Reason Onset Date Comments Referral 05/28/2024 Encounter Details Date Type Department Care Team ([facility] st Contact Info) Description 05/28/2024 Telephone General Internal Medicine [facility] [address] [place] [address] Ron Oretga MD [address] [place] [address] Referral Allergies Active Allergy Reactions Criticality Noted [...] referral need to be placed into the [facility] system? Name of preferred specialist: Type of specialist: cardiology [facility] of specialist[facility] Phone #: Specialist's Fax #: [phone] Reason for visit: coughing, check to see if its not cardiac related Date of visit: waiting for referral documented in this encounter Plan of Treatment Upcoming Encounters Date Type Department Care Team (Late st Contact Info) Description 06/02/2024 4:00 PM EST Telemedicine Endocrinology [address] [place] [address] Trinidad Horner PA-C [address] [place] [address] 06/11/2024 3:30 PM EST Office Visit Pulmonary Medicine, [facility] [address] [place] [address] Antonio Srivastava MD [address] [place] [address] 08/05/2024 10:40 AM EDT Telemedicine General Internal Medicine [facility] 200 [facility] [place] [address] Ron Ortega MD 200 [facility] [place] [address] Health Maintenance Due Date Last Done Comments [...] D LEVEL ONCE IN A LIFETIME-USE SMARTSET# [id number] Completed 03/10/2024, 01/17/2021, 04/05/2020, Additional history exists [...] 10:18 AM 11/18/2003 10:18 AM Care Teams Coal Deliverer Relationship Specialty Start Date End Date Ron Ortega MD 200 [place] [address] PCP - General Internal Medicine 08/23/17 documented as of this encounter
--- OUTSIDE RECORDS SUMMARY | 2024-06-02 01:49 | External Medical Summary | Summary of Care ---
Author Name Unknown Organization [facility] Address [address] [place] [address] Phone [phone] Care Team Providers Care Freelance Designer Name Role Phone Ron Long MD Primary Care Provider + Reason for Visit * Reason Comments eRx-Medication Refill Encounter Details Date Type Department Care Team ([facility] Contact Info) Description 02/24/2024 Refill General Internal Medicine [facility] [address] [place] [address] Tim Sprague PA-C [address] [place] [address] Pure hypercholesterolemia Allergies Active Allergy Reactions Criticality Noted Date Comments Adhesive Tape 02/15/2017 Codeine Rash Medium 10/16/2010 Levofloxacin Edema airway High 10/15/2017 Lidocaine Other (Please comment) 02/23/2010 unknown Penicillins Rash 10/14/2000 documented as of this encounter (statuses as of 02/25/2024) Medications Medication Sig Dispensed Refills Start Date End Date Status oxygen GASIndications:Hypoxia Use 2 L/min(Oxygen) as directed continuous. 1 Each 06/29/19 17 Active Coenzyme Q10 (COQ10) 100 MG CAPS Once daily, unsure of dose. Active acetaminophen (TYLENOL) 500 MG Tablet Take 1 Tablet by mouth every 6 hours as needed. 100 Tab 11/27/19 20 Active Probiotic Product (ALIGN) Capsule Take 1 Capsule by mouth in the morning. 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 NURSING, PT/OT. DX: METABOLIC ENCEPHALOPATHY , COPD, HX OF LUNG CANCER, RESPIRATORY FAILURE WITH HYPOXEMIA 1 Each 1 11/07/19 Active PreserVision AREDS Oral Tablet Take by mouth 1 Tablet in the morning. 30 Tablet 11/07/19 22 Active Aspirin EC 81 MG Oral Tablet Delayed ReleaseIndications:Old cerebrovascular accident (CVA) without late effect Take by mouth 1 Tablet in the morning. 100 Tablet 3 11/07/19 22 Active Ipratropium-Albuterol 0.5-2.5 (3) MG/3ML Inhalation Solution (Duoneb)Indications:Chr onic respiratory failure with hypoxia, on home oxygen therapy (HCC) Inhale 3 mL by mouth every 6 hours as needed (wheezing). 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 TAKE ONE TABLET BY MOUTH TWICE A DAY NEEDED FOR MUSCLE SPASMS 180 Tablet 11/05/19 23 Active hydrOXYzine HCl 25 MG Oral TabletIndications:Panic attacks TAKE ONE TABLET BY MOUTH EVERY DAY NEED FOR ANXIETY AND FOR SLEEP AT BEDTIME 30 Tablet 2 04/08/20 23 Active Albuterol Sulfate 1.25 MG/3ML Inhalation Nebulization SolutionIndications:Chr onic respiratory failure with hypoxia (HCC),COPD, group D, by GOLD 2017 classification (HCC) INHALE 1.25MG (1 VIAL) VIA NEBULIZER EVERY 6 HOURS NEEDED FOR WHEEZING 150 mL 5 07/11/19 24 Active Mirtazapine 7.5 MG Oral Tablet (Remeron)Indications:De creased appetite,Weight loss TAKE ONE TABLET BY MOUTH AT BEDTIME 90 Tablet 1 10/22/19 24 Active Escitalopram Oxalate 20 MG Oral Tablet (Lexapro)Indications:An xiety TAKE ONE TABLET BY MOUTH EVERY MORNING 90 Tablet 01/22/20 24 Active Trelegy Ellipta 100-62.5-25 MCG/ACT Aerosol Powder Breath Activated (Fluticasone-Umeclidini um-Vilanterol) INHALE ONE PUFF BY MOUTH EVERY DAY IN THE MORNING. RINSE MOUTH AFTER USE. STOP ANORO INHALER. 180 Each 1 02/21/20 24 Active Atorvastatin Calcium 10 MG Oral Tablet (Lipitor)Indications:Pu re hypercholesterolemia TAKE ONE TABLET BY MOUTH EVERY MORNING 90 Tablet 1 02/25/20 24 Active Atorvastatin Calcium 10 MG Oral Tablet (Lipitor)Indications:Pu re hypercholesterolemia TAKE ONE TABLET BY MOUTH EVERY MORNING 90 Tablet 1 06/20/19 24 024 Discontinued documented as of this encounter (statuses as of 02/25/2024) Active Problems Problem Noted Date Diagnosed Date Contracture of hand 01/30/2023 Severe protein-calorie malnutrition 11/01/2021 Recurrent major depressive disorder, in partial remission 07/13/2020 Tobacco abuse 07/13/2020 History of hypertension 01/05/2020 Hyperparathyroidism 08/12/2019 Congenital single kidney 07/24/2019 Overview: ICD-10 update of inactive term History of chronic renal failure 07/24/2019 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 05/03/2010 12/21/2016 UNCERTAIN BEHAVIOR - NEOPLASM ADRENAL 03/05/2010 05/03/2010 HTN, goal below 140/90 02/22/201001/18 Myalgia and myositis 01/10/2010 018 Overview: In both breasts bilaterally, since surgery 2003 treated with chiropractor and medications Dyslipidemia, goal LDL below 130 01/10/2010 07/07/2013 Overview: Treated with diet Herpes zoster 01/10/2010 12/21/2016 Overview: In October Anemia in neoplastic disease 11/18/2003 12/21/2016 MAL BHUPENDRA LYMPH-INTRATHOR 10/11/200311/28 MAL BHUPENDRA UPPER LOBE LUNG 10/11/200311/28 COPD, moderate 10/08/2018 Overview: Per COPD GOLD Classification documented as of this encounter (statuses as of 02/25/2024) Immunizations Name Administration Dates Next Due COVID-19 [...] years and over) Not on file 10/15/2023 Sex and Gender Information Value Date Recorded Sex Assigned at Female 12/15/2018 2:05 PM EDT Gender Identity Female 12/15/2018 2:05 PM EDT Sexual Orientation Choose not to disclose 2018 2:05 PM EDT Job Start Date Occupation Industry Not on file Not on file Not on file documented as of this encounter Miscellaneous Notes * Telephone Encounter - Cody Logan, [facility] - 02/25/2024 12:22 PM EDTSigned Prescriptions: Disp Refills Atorvastatin Calcium 10 MG Oral Tablet (Li*90 Tab*1 Sig: TAKE ONE TABLET BY MOUTH EVERY MORNINGAuthorizing Provider: RON LONG User: CODY LOGAN documented in this encounter Plan of Treatment Upcoming Encounters Date Type Department Care Team (Late st Contact Info) Description 08/05/2024 10:40 AM EDT Telemedicine [facility] [address] [facility] [place] [address] Ron Long MD [address] [facility] [place] [address] Health Maintenance Due Date Last Done Comments [...] 10/17/2017, 09/21/2014, Additional history exists COVID-19 Vaccine (2023- season) 2023 05/05/2023, 10/26/2021, 08/03/2020, Additional history exists Influenza Vaccine (FLU shot) (#1) 2023 05/05/2023, 01/17/2021, 02/06/2020, Additional history exists O2 ASSESSMENT COMPLETED IN PAST YEAR FOR COPD 06/07/2024 06/07/2023 DTap/Tdap Vaccines (2 - Td or Tdap) 06/04/2026 06/04/2016 Pneumococcal Vaccine: 65+ Years Completed 03/23/2013, 08/28/2007 VITAMIN D LEVEL ONCE IN A LIFETIME-USE SMARTSET# [id number] Completed 01/17/2021, 04/05/2020, 12/10/2019, Additional history exists HPV (Gardasil) Vaccine Aged Out No lo nger eligible based on patient's age to complete this topic Hepatitis B Vaccine Aged Out No longe r eligible based on patient's age to complete this topic documented as of this encounter Medical Devices Not on filedocumented as of this encounter Visit Diagnoses Diagnosis Pure hypercholesterolemia documented in this encounter Advance Directives * [...] 10:18 AM 11/18/2003 10:18 AM Care Teams Freelance Designer Relationship Specialty Start Date End Date Ron Long MD [address] [place] [address] PCP - General Internal Medicine 08/23/17 documented as of this encounter
--- OUTSIDE RECORDS SUMMARY | 2024-06-02 01:49 | External Medical Summary ---
Author Name Unknown Address Unknown Organization K01:[facility] - [address] [place] [address] Laboratory Report Ordering Provider Test Date Status VINCENT CORREA 03/10/2024 09:01:00 Final Deficient: <20 ng/mL
Ins ufficient: 20-29 ng/mL
Recommended/Optimum:30-50 ng/mL

Vitamin D intoxication is rare. If suspicious of Vitamin D toxicity, evaluation of serum Calcium and PTH is recommended. Observation Date Value Abnormality Reference (Units ) Status 25-OH Vitamin D total 03/10/2024 09:01:00 62 >19 (ng/mL) Final Performing Location [facility] [place] - [address] [place] [address]
--- OUTSIDE RECORDS SUMMARY | 2024-06-02 01:49 | External Medical Summary | Summary of Care ---
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 Jyoti Comments Is Patient homebound? Yes All sections of this form must be filled out completely. Forms with missing or illegible information will be returned for completion. This form should not be modified in any way. Forms that have been modified will be returned. This form may not be submitted by a home health agency. It must be complete and submitted by the ordering provider. One full business day lead time is required and service will be scheduled based on the next service day for the [facility] Home Phlebotomy does not service every geographical location on a daily basis. Contact [facility] Client Services at to find out service days for a specific location. Medical Laboratory SP Patient Name: Concepción Jacob : 1940 Sex: female Address [address] [address] Provider: @REF@? Ron Ortega MD? Diagnosis: (J96.11) Chronic respiratory failure with hypoxia (HCC) (primary encounter diagnosis) (Z85.118) H/O: lung cancer (Z87.891) History of tobacco use (E78.00) Pure hypercholesterolemia (Z86.73) Old cerebrovascular accident (CVA) without late effect (I27.20) Pulmonary HTN (HCC) (I34.0) Moderate mitral regurgitation (I07.1) Moderate tricuspid regurgitation by prior echocardiogram (Z90.81) History of splenectomy (D75.839) Thrombocytosis (D72.829) Leukocytosis, unspecified type (F41.1) VICENTE (generalized anxiety disorder) (G47.09) Other insomnia (M41.25) Other idiopathic scoliosis, thoracolumbar region (Z71.89) Advance directive discussed with patient (E21.3) Hyperparathyroidism (HCC) Tests Requested See orders on file * Evaluate & Treat - Unlimited Visits (Within 30 days (routine)) - Authorized Specialty Diagnoses / Procedures Referred By Jamaal amaro Referred To Contact Pulmonary Diseases / Pulmonary Diagnoses Chronic respiratory failure with hypoxia (HCC) H/O: lung cancer History of tobacco use Jumana Mars MD [address] [facility] [place] [address] Referral ID Status Reason Start Date Expiration Date Visits Requested Visits Authorized [id number] Authorized Specialty Services Required 03/03/2024 [id number] Question Answer Referral Priority Within 30 days (routine) Where should this appointment be scheduled? [facility] Primary Reason for Referral? Asthma/COPD Reason for Visit * Reason Comments Acute form Encounter Details Date Type Department Care Team (Latest Contact Info) Description 03/03/2024 4:20 PM EST Telemedicine General Internal Medicine [facility] [address] [place] [address] Jumana Mars MD [address] [place] [address] Chronic respiratory failure with hypoxia (HCC)*; H/O: lung cancer; History of tobacco use; Pure hypercholesterolemia; Old cerebrovascular accident (CVA) without late effect; Pulmonary HTN (HCC); Moderate mitral regurgitation; Moderate tricuspid regurgitation by prior echocardiogram; History of splenectomy; Thrombocytosis; Leukocytosis, unspecified type; VICENTE (generalized anxiety disorder); Other insomnia; Other idiopathic scoliosis, thoracolumbar region; Advance directive discussed with patient; Hyperparathyroidism (HCC); Other abnormalities of gait and mobility Allergies Active Allergy Reactions Criticality Noted Date Comments Adhesive Tape 02/15/2017 Codeine Rash Medium 10/16/2010 Levofloxacin Edema airway High 10/15/2017 Lidocaine Other (Please comment) 02/23/2010 unknown Penicillins Rash 10/14/2000 documented as of this encounter (statuses as of 03/03/2024) Medications Medication Sig Dispensed Refills Start Date End Date Status oxygen GASIndications:Hypoxia Use 2 L/min(Oxygen) as directed continuous. 1 Each 7 Active Coenzyme Q10 (COQ10) 100 MG CAPS Once daily, unsure of dose. Active acetaminophen (TYLENOL) 500 MG Tablet Take 1 Tablet by mouth every 6 hours as needed. 100 Tab 0 Active Probiotic Product (ALIGN) Capsule Take 1 Capsule by mouth in the morning. 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 NURSING, PT/OT. DX: METABOLIC ENCEPHALOPATHY, COPD, HX OF LUNG CANCER, RESPIRATORY FAILURE WITH HYPOXEMIA 1 Each 1 2 Active PreserVision AREDS Oral Tablet Take by mouth 1 Tablet in the morning. 30 Tablet 2 Active Aspirin EC 81 MG Oral Tablet Delayed ReleaseIndications:Old cerebrovascular accident (CVA) without late effect Take by mouth 1 Tablet in the morning. 100 Tablet 3 2 Active Ipratropium-Albuterol 0.5-2.5 (3) MG/3ML Inhalation Solution (Duoneb)Indications:Chron ic respiratory failure with hypoxia, on home oxygen therapy ([facility]) Inhale 3 mL by mouth every 6 hours as needed (wheezing). One vial in nebulizer every six hour as needed 120 mL 2 Active Zoster Vac Recomb Adjuvanted 50 MCG/0.5ML Intramuscular Suspension Reconstituted (Shingrix)Indications:Nee d for shingles vaccine Inject 0.5 mL into a large muscle now and repeat dose in 60 to 180 days 1 Each 1 3 Active hydrOXYzine HCl 25 MG Oral TabletIndications:Panic attacks TAKE ONE TABLET BY MOUTH EVERY DAY NEED FOR ANXIETY AND FOR SLEEP AT BEDTIME 30 Tablet 2 3 Active Albuterol Sulfate 1.25 MG/3ML Inhalation Nebulization SolutionIndications:Chron ic respiratory failure with hypoxia ([facility]),COPD, group D, by GOLD 2017 classification ([facility]) INHALE 1.25MG (1 VIAL) VIA NEBULIZER EVERY 6 HOURS NEEDED FOR WHEEZING 150 mL 5 4 Active Mirtazapine 7.5 MG Oral Tablet (Remeron)Indications:Decr eased appetite,Weight loss TAKE ONE TABLET BY MOUTH AT BEDTIME 90 Tablet 1 4 Active Escitalopram Oxalate 20 MG Oral Tablet (Lexapro)Indications:Anxi ety TAKE ONE TABLET BY MOUTH EVERY MORNING 90 Tablet 4 Active Trelegy Ellipta 100-62.5-25 MCG/ACT Aerosol Powder Breath Activated (Fluticasone-Umeclidinium -Vilanterol) INHALE ONE PUFF BY MOUTH EVERY DAY IN THE MORNING. RINSE MOUTH AFTER USE. STOP ANORO INHALER. 180 Each 1 4 Active Atorvastatin Calcium 10 MG Oral Tablet (Lipitor)Indications:Pure hypercholesterolemia TAKE ONE TABLET BY MOUTH EVERY MORNING 90 Tablet 1 4 Active Cyclobenzaprine HCl 5 MG Oral Tablet (Flexeril)Indications:Chr onic bilateral low back pain with bilateral sciatica Take 1 Tablet by mouth 2 times a day as needed for Muscle spasms. --appointment needed with PCP for any additional refills 30 Tablet 4 Active documented as of this encounter (statuses as of 03/03/2024) Active Problems Problem Noted Date Diagnosed Date [...] as of this encounter (statuses as of 03/03/2024) Resolved Problems Problem Noted Date Diagnosed Date [...] Herpes zoster 01/10/2010 12/21/2016 Overview: In October ADVANCE DIRECTIVE INFORMATION 12/01/2004 03/02/2024 Overview: Yes, Copy scanned at patient level in the electronic medical record.(Go to Action, Patient File to view) Patient aware they must notify their healthcare provider of changes. Anemia in neoplastic disease 11/18/2003 12/21/2016 MAL BHUPENDRA LYMPH-INTRATHOR 10/11/200311/28 MAL BHUPENDRA UPPER LOBE LUNG 10/11/200311/28 COPD, moderate 10/08/2018 Overview: Per COPD GOLD Classification documented as of this encounter (statuses as of 03/03/2024) Immunizations Name Administration Dates Next Due COVID-19 [...] on file documented as of this encounter Progress Notes * Jumana Mars MD - 03/03/2024 4:40 PM EST SUBJECTIVE: Concepción Jacob is a 84 year old female. No chief complaint on file. Per nurse-Attempted to call [phone] on primary number, it is for daughter, she gave me pts personal cell, she did not answer on the number provided. I was in a hospital or clinic location. After connecting through televideo, patient was verified with two unique identifiers. Patient (or authorized legal patient service representative) was then informed that this was a Telemedicine visit and being conducted confidentially over secure lines. Methods to assure confidentiality were taken. Patient acknowledged consent and understanding of privacy and security of the Telemedicine visit. The patient agreed to participate. HPI: This clinic encounter was completed utilizing remote or virtual means secondary to the COVID-19 outbreak. 20 min appt 84-year-old patient who I am seeing for the 1st time via tele video appointment, appointment was made to have her form completed for long-term care insurance which we do not have yet. Last seen in clinic for acute problem of contracture of the hand in 11/15/2022 by Tim Sprague PA-C Last Pulmonology evaluation 03/28/2022 was reviewed. Patient with h/o non-small cell lung cancer of the right upper lobe status post lobectomy chemo andradiation 2003. Ex-smoker 1 pack a day from age 14 until age 82 quit in 11/15/2021 Severe COPD, chronic hypoxic respiratory failure on oxygen 2 L 19/11, chronic heart failure with moderate mitral and tricuspid valve regurgitation, pulmonary hypertension; severe scoliosis of the thoracolumbar spine, wheelchair dependent, uses ambulance for transport Remote history of CVA, dyslipidemia. History of anxiety/insomnia History of GERD, hyperparathyroidism. 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 The left ventricular cavity size is normal. The LV wall thickness is mildly increased (concentric). The left ventricular wall motion is normal. Calculated LV ejection Fraction = 60% (bi-plane method of discs). The left ventricular diastolic function is moderately abnormal (grade II). The left atrium is moderately enlarged (42-48 ml/m^2). There is mild mitral annular calcification. The mitral valve leaflets thickness is mildly increased. Mild mitral regurgitation is present. The aortic valve has three leaflets. Moderate aortic valve sclerosis is present. Aortic stenosis isabsent. Moderate tricuspid regurgitation is present. The inter-atrial septum bows toward the right atrium consistent with high left atrial pressure. Normal IVC size and collapsability with inspiration indicates a normal right atrial pressure of 3 mmHg. The estimated pulmonary artery systolic pressure is 70mm Hg. Compared to previous study dated 06/06/2016, there appears to be no significant interval change. Estimated pulmonary artery systolic pressure on that study was 70-75 mmHg. Has chronic shortness of breath with minimal exertion, in a wheelchair has 2 caregivers who come in12hr each. Denies chest pain or palpitations. No GI or symptoms, no edema of the leg Has a living will, full code, DNR only if terminal States had flu vaccine at [facility] recently, has not yet had the COVID vaccine and will be getting it soon, daughter to send us the dates so nurses can update Also due for meningococcal vaccine to consider getting it at the pharmacy if did not get in 2022 Immunization History Administered Date(s) Administered COVID-19 mRNA, LNP-s, No Preserve, 2-Dose Series (Moderna) 05/05/2023 COVID-19 mRNA, LNP-s, No Preserve, 2-Dose Series (Pfizer) 05/05/2020, 07/11/2020, 08/03/2020 Denosumab 11/28/2015, 07/26/2016, 02/15/2017 HIB PRP-T, 4 Dose, PF, IM (Hiberix, ActHib) 04/03/2010 Haemophilius B (HIB), unspecified 04/03/2010 Meningococcal B, 2/3-Dose Series (TRUMENBA) 11/28/2017, 07/11/2018 Meningococcal Conjugate Vaccine (Menactra/Menveo) 09/21/2014, 10/17/2017 Meningococcal MCV4P Conjugate Vaccine (Menactra) 09/21/2014, 10/17/2017 Meningococcal Polysaccharide Vaccine (Menommune) 04/03/2010 Pneumococcal Conjugate Vacc, 13 Valent (Prevnar) 03/23/2013 Pneumococcal Polysaccharide PPV23 (Pneumovax) 08/28/2007 RSV Vac., Recomb, Adjuvant, PF,0.5 Ml (Arexvy) 06/06/2023 Seasonal Influenza Vac, Quad, Cell Cult, PF, 6 Mos and Up, IM, (Flucelvax Quad) 05/05/2023 Seasonal Influenza Vac., MDV, IM, 0.5 mL (Fluzone) 01/24/2010, 01/18/2011, 03/13/2012, 01/14/2013, 01/25/2014 Seasonal Influenza Virus Vaccine, Unspecified Formulation 01/24/2010, 01/18/2011, 03/13/2012, 01/14/2013, 01/25/2014, 02/10/2016, 03/11/2017, 01/10/2018, 03/12/2019 Seasonal Influenza, High Dose, Trivalent, PF, IM (Fluzone HD) 02/10/2016 Seasonal Influenza, PF, 6 M & above, IM , (FluLaval or Fluzone) 03/11/2017, 01/10/2018 Seasonal Influenza, Quadrivalent Hd (Fluzone Hd) 01/17/2021 Seasonal Influenza, Quadrivalent Hd, 65+ Yrs 02/06/2020 Seasonal Influenza, Quadrivalent, No Preserve, IM 05/10/2015 Seasonal Influenza, Trivalent, Adjuvanted, 65+ YRS, PF, (Fluad) 03/12/2019 TDAP (age 10 and older)(Boostrix) 06/04/2016 Varicella Zoster Vaccine (Adult) 02/06/2010 Patient Active Problem List Diagnosis Esophageal reflux Pulmonary HTN (HCC) MEDICATION USE AGREEMENT Lumbar spinal stenosis Osteoporosis Diastolic dysfunction H/O: lung cancer History of splenectomy Old cerebrovascular accident (CVA) without late effect Chronic respiratory failure with hypoxia (HCC) COPD, group D, by GOLD 2017 classification ([facility]) Pure hypercholesterolemia Thrombocytosis Moderate mitral regurgitation Congenital single kidney History of chronic renal failure Hyperparathyroidism (HCC) History of hypertension Recurrent major depressive disorder, in partial remission ([facility]) Tobacco abuse Severe protein-calorie malnutrition (HCC) Contracture of hand Current Outpatient Medications Medication Sig Dispense Refill oxygen GAS Use 2 L/min(Oxygen) as directed continuous. 1 Each 0 Coenzyme Q10 (COQ10) 100 MG CAPS Once daily, unsure of dose. acetaminophen (TYLENOL) 500 MG Tablet Take 1 Tablet by mouth every 6 hours as needed. 100 Tab 0 Probiotic Product (ALIGN) Capsule Take 1 Capsule by mouth in the morning. Glucosamine Chondroitin Complx Oral Capsule takes 2 tablets daily 60 Capsule 0 MEDICAL INSTRUCTIONS Use as directed . NURSING, PT/OT. DX: METABOLIC ENCEPHALOPATHY, COPD, HX OF LUNG CANCER, RESPIRATORY FAILURE WITH HYPOXEMIA 1 Each 1 PreserVision AREDS Oral Tablet Take by mouth 1 Tablet in the morning. 30 Tablet 0 Aspirin EC 81 MG Oral Tablet Delayed Release Take by mouth 1 Tablet in the morning. 100 Tablet 3 Ipratropium-Albuterol 0.5-2.5 (3) MG/3ML Inhalation Solution (Duoneb) Inhale 3 mL by mouth every 6 hours as needed (wheezing). One vial in nebulizer every six hour as needed 120 mL 0 Zoster Vac Recomb Adjuvanted 50 MCG/0.5ML Intramuscular Suspension Reconstituted (Shingrix) Inject 0.5 mL into a large muscle now and repeat dose in 60 to 180 days 1 Each 1 hydrOXYzine HCl 25 MG Oral Tablet TAKE ONE TABLET BY MOUTH EVERY DAY NEED FOR ANXIETY AND FOR SLEEP AT BEDTIME 30 Tablet 2 Albuterol Sulfate 1.25 MG/3ML Inhalation Nebulization Solution INHALE 1.25MG (1 VIAL) VIA NEBULIZEREVERY 6 HOURS NEEDED FOR WHEEZING 150 mL 5 Mirtazapine 7.5 MG Oral Tablet (Remeron) TAKE ONE TABLET BY MOUTH AT BEDTIME 90 Tablet 1 Escitalopram Oxalate 20 MG Oral Tablet (Lexapro) TAKE ONE TABLET BY MOUTH EVERY MORNING 90 Tablet 0 Trelegy Ellipta 100-62.5-25 MCG/ACT Aerosol Powder Breath Activated (Kvigwcejady-Jicucaazajxw-Qwclslmcmy) INHALE ONE PUFF BY MOUTH EVERY DAY IN THE MORNING. RINSE MOUTH AFTER USE. STOP ANORO INHALER.180 Each 1 Atorvastatin Calcium 10 MG Oral Tablet (Lipitor) TAKE ONE TABLET BY MOUTH EVERY MORNING 90 Tablet 1 Cyclobenzaprine HCl 5 MG Oral Tablet (Flexeril) Take 1 Tablet by mouth 2 times a day as needed for Muscle spasms. --appointment needed with PCP for any additional refills 30 Tablet 0 No current facility-administered medications for this visit. Review of patient's allergies indicates: Allergen Reactions Levaquin [Levofloxacin] Edema airway Codeine Rash Adhesive Tape Lidocaine Other (Please comment) unknown Penicillins Rash OBJECTIVE: No vitals were obtained for this appointment PHYSICAL EXAM: General: alert, healthy, no distress Head-normocephalic, no erythema O2 in place Eyes-sclera clear. OP- Mm Moist Neck-supple Lungs: able to take deep breaths, faint end exp rhonchi--chr per pt Neuro-alert with fluent speech Ext-no edema ASSESSMENT/PLAN: Chronic respiratory failure with hypoxia (HCC) (Primary) - CBC WITH WBC DIFFERENTIAL; Future; Expected date: 03/03/2024 - COMPREHENSIVE METABOLIC PANEL; Future; Expected date: 03/03/2024 - PULMONARY REFERRAL OP - HOME PHLEBOTOMY REFERRAL OP H/O: lung cancer - CBC WITH WBC DIFFERENTIAL; Future; Expected date: 03/03/2024 - PULMONARY REFERRAL OP - HOME PHLEBOTOMY REFERRAL OP History of tobacco use - CBC WITH WBC DIFFERENTIAL; Future; Expected date: 03/03/2024 - PULMONARY REFERRAL OP Pure hypercholesterolemia - COMPREHENSIVE METABOLIC PANEL; Future; Expected date: 03/03/2024 - LIPID PANEL WITH DIRECT LDL IF TG IS HIGH; Future; Expected date: 03/03/2024 Old cerebrovascular accident (CVA) without late effect - COMPREHENSIVE METABOLIC PANEL; Future; Expected date: 03/03/2024 - LIPID PANEL WITH DIRECT LDL IF TG IS HIGH; Future; Expected date: 03/03/2024 Pulmonary HTN (HCC) - COMPREHENSIVE METABOLIC PANEL; Future; Expected date: 03/03/2024 Moderate mitral regurgitation - COMPREHENSIVE METABOLIC PANEL; Future; Expected date: 03/03/2024 Moderate tricuspid regurgitation by prior echocardiogram - COMPREHENSIVE METABOLIC PANEL; Future; Expected date: 03/03/2024 History of splenectomy - CBC WITH WBC DIFFERENTIAL; Future; Expected date: 03/03/2024 Thrombocytosis - CBC WITH WBC DIFFERENTIAL; Future; Expected date: 03/03/2024 Leukocytosis, unspecified type - CBC WITH WBC DIFFERENTIAL; Future; Expected date: 03/03/2024 VICENTE (generalized anxiety disorder) Other insomnia Other idiopathic scoliosis, thoracolumbar region Advance directive discussed with patient Hyperparathyroidism (HCC) - COMPREHENSIVE METABOLIC PANEL; Future; Expected date: 03/03/2024 - PTH; Future; Expected date: 03/03/2024 - 25-HYDROXY VITAMIN D; Future; Expected date: 03/03/2024 Other abnormalities of gait and mobility - HOME PHLEBOTOMY REFERRAL OP -continue current meds, she is homebound, home phlebotomy referral placed, will review form when available and decide what can be filled out.advised next appointment should be in-person 40 min total time spent with patient, time spent reviewing subspecialty notes, diagnostic studies done, follow-up orders/medication refills,over 1/2 time spent in counseling, coordinating care. Follow Up: Return if symptoms worsen or fail to improve, for Fasting Labs Soon. | For: Fasting LabsSoon | Check-out note: As brielle with PCP, should be in person appt (This note was completed using the dictation program Fluency Direct. As such, there may be misspellings, word substitutions, or other variations that should not change the essence of the clinical content of this encounter note. If there is need for further clarification, please direct questions to the provider listed above.) Patient and / caregiver verbalizes understanding of above instructions and agrees with plan of care. Jumana Mars MD 03/03/2024 documented in this encounter Plan of Treatment Upcoming Encounters Date Type Department Care Team (Late st Contact Info) Description 08/05/2024 10:40 AM EDT Telemedicine General Internal Medicine [facility] [address] [place] [address] [facility] [place] [id number] Ron Ortega MD [address] [facility] [place] [address] Scheduled Orders Name Type Priority Associated Diagnoses Orde r Schedule CBC WITH WBC DIFFERENTIAL Lab Routine Chronic respiratory failure with hypoxia (HCC) H/O: lung cancer History of tobacco use History of splenectomy Thrombocytosis Leukocytosis, unspecified type Expected: 03/03/2024 (Approximate), Expires: 03/03/2025 COMPREHENSIVE METABOLIC PANEL Lab Routine Chronic respiratory failure with hypoxia (HCC) Pure hypercholesterolemia Old cerebrovascular accident (CVA) without late effect Pulmonary HTN (HCC) Moderate mitral regurgitation Moderate tricuspid regurgitation by prior echocardiogram Hyperparathyroidism (HCC) Expected: 03/03/2024 (Approximate), Expires: 03/03/2025 PTH Lab Routine Hyperparathyroidism (HCC) Expected: 03/03/2024 (Approximate), Expires: 03/03/2025 25-HYDROXY VITAMIN D Lab Routine Hyperparathyroidism (HCC) Expected: 03/03/2024 (Approximate), Expires: 03/03/2025 LIPID PANEL WITH DIRECT LDL IF TG IS HIGH Lab Routine Pure hypercholesterolemia Old cerebrovascular accident (CVA) without late effect Expected: 03/03/2024, Expires: 03/03/2025 Scheduled Referrals Name Type Priority Associated Diagnoses Orde r Schedule PULMONARY REFERRAL OP Referral Within 30 days (routine) Chronic respiratory failure with hypoxia (HCC) H/O: lung cancer History of tobacco use Ordered: 03/03/2024 HOME PHLEBOTOMY REFERRAL OP Referral Within 30 days (routine) Chronic respiratory failure with hypoxia (HCC) H/O: lung cancer Other abnormalities of gait and mobility Ordered: 03/03/2024 Health Maintenance Due Date Last Done Comments [...] D LEVEL ONCE IN A LIFETIME-USE SMARTSET# [id number] Completed 01/17/2021, 04/05/2020, 12/10/2019, Additional history exists HPV (Gardasil) Vaccine Aged Out No lo nger eligible based on patient's age to complete this topic Hepatitis B Vaccine Aged Out No longe r eligible based on patient's age to complete this topic documented as of this encounter Medical Devices Not on filedocumented as of this encounter Visit Diagnoses Diagnosis Chronic respiratory failure with hypoxia (HCC)- Primary Chronic respiratory failure H/O: lung cancer Personal history of malignant neoplasm of bronchus and lung History of tobacco use Personal history of tobacco use, presenting hazards to health Pure hypercholesterolemia Old cerebrovascular accident (CVA) without late effect Pulmonary HTN (HCC) Other chronic pulmonary heart diseases Moderate mitral regurgitation Mitral valve disorders Moderate tricuspid regurgitation by prior echocardiogram Diseases of tricuspid valve History of splenectomy Other acquired absence of organ Thrombocytosis Essential thrombocythemia Leukocytosis, unspecified type VICENTE (generalized anxiety disorder) Generalized anxiety disorder Other insomnia Other idiopathic scoliosis, thoracolumbar region Advance directive discussed with patient Other specified counseling Hyperparathyroidism (HCC) Hyperparathyroidism, unspecified Other abnormalities of gait and mobility documented in this encounter Advance Directives * [...] 10:18 AM 11/18/2003 10:18 AM Care Teams Real Estate Legal Secretary Relationship Specialty Start Date End Date Ron Ortega MD [address] [place] [address] PCP - General Internal Medicine 08/23/17 documented as of this encounter"
--- OUTSIDE RECORDS SUMMARY | 2024-06-02 01:49 | External Medical Summary ---
Author Name Unknown Address Unknown Organization K01:[facility] - [address] [place] [address] Laboratory Report Ordering Provider Test Date Status VINCENT CORREA 03/10/2024 09:01:00 Final Observation Date Value Abnormality Reference (Units ) Status Parathyrin.intact [Mass/volume] in Serum or Plasma 03/10/2024 09:01:00 71 Above high normal 15-65 (pg/mL) Final Performing Location [facility] - [address] [place] [address]
--- OUTSIDE RECORDS SUMMARY | 2024-06-02 01:49 | External Medical Summary | Summary of Care ---
Author Name Unknown Organization [facility] Address [address] [place] [address] Phone [phone] Care Team Providers Care Reconnaissance Crewmember Name Role Phone Ron Ortega MD Primary Care Provider + Reason for Visit * Reason Onset Date Comments Forms Request 01/29/2024 Encounter Details Date Type Department Care Team ([facility] Contact Info) Description 01/29/2024 Telephone General Internal Medicine [facility] [address] [place] [address] Ron Ortega MD [address] [place] [address] Forms Request Allergies Active Allergy Reactions Criticality Noted Date Comments Adhesive Tape 02/15/2017 Codeine Rash Medium 10/16/2010 Levofloxacin Edema airway High 10/15/2017 Lidocaine Other (Please comment) 02/23/2010 unknown Penicillins Rash 10/14/2000 documented as of this encounter (statuses as of 03/05/2024) Medications Medication Sig Dispensed Refills Start Date [...] takes 2 tablets daily 60 Capsule 11/07/19 Active MEDICAL INSTRUCTIONS Use as directed . 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 RINSE MOUTH AFTER USE. STOP ANORO INHALER. 60 Each 2 09/18/19 24 2023 Discontinued documented as of this encounter (statuses as of 03/05/2024) Active Problems Problem Noted Date Diagnosed Date [...] HTN 04/09/2012 Esophageal reflux 01/10/2010 Overview: In 2004, diagnosed with fungal esophagitis, treated around chemo documented as of this encounter (statuses as of 03/05/2024) Resolved Problems Problem Noted Date Diagnosed Date [...] as of this encounter (statuses as of 03/05/2024) Immunizations Name Administration Dates Next Due COVID-19 [...] encounter Miscellaneous Notes * Telephone Encounter - Sandra Horn OSA - 03/05/2024 10:31 AM EST Patient had a tele med appointment for these concerns on 03/03/24. No longer need another appointment at this time * Telephone Encounter - Srikanth Heart RN - 02/21/2024 9:29 AM EDT Scheduling: Please see previous messages and schedule patient for sooner appointment per Dr. Ortega's previous message. Ok for mid-level. * Telephone Encounter - Ron Ortega MD - 01/29/2024 2:14 PM EDT Sooner, ok for mid-level * Telephone Encounter - Barbara Woodward OSA - 01/29/2024 2:05 PM EDT Patient is scheduled for July 2024. Are you okay with this or would you like the patient to be seen sooner? * Telephone Encounter - Ron Ortega MD - 01/29/2024 8:19 AM EDT Has not had visit here since 10/2022. Tim has left, last OV with me was 06/2020. Suggest visit for forms, update health status/recheck * Telephone Encounter - Srikanth Heart RN - 01/29/2024 7:21 AM EDT Received form from [employer] for updated physician certification to determine eligibilityfor [facility] policy. Form placed in Dr. Ortega's orange folder for review and completion if agree. documented in this encounter Plan of Treatment Upcoming Encounters Date Type Department Care Team (Late st Contact Info) Description 03/10/2024 7:15 AM EST Laboratory Lab [facility] [address] [place] [address] [facility] Draw [address] [place] [address] 08/05/2024 10:40 AM EDT Telemedicine General Internal Medicine [facility] [place] [address] [facility] [place] [place] [address] Ron Ortega MD 200 [facility] [place] [address] Health Maintenance Due Date Last Done Comments [...] D LEVEL ONCE IN A LIFETIME-USE SMARTSET# [id number] Completed 01/17/2021, 04/05/2020, 12/10/2019, Additional history exists [...] 10:18 AM 11/18/2003 10:18 AM Care Teams Reconnaissance Crewmember Relationship Specialty Start Date End Date Ron Ortega MD 200 [facility] [place], [place] [address] PCP - General Internal Medicine 08/23/17 documented as of this encounter
--- OUTSIDE RECORDS SUMMARY | 2024-06-02 01:49 | External Medical Summary | Summary of Care ---
Author Name Unknown Organization [facility] Address [address] [place] [address] Phone [phone] Care Team Providers Care Optics Test Technician Name Role Phone Ron Ortega MD Primary Care Provider + Encounter Details Date Type Department Care Team ([facility] Contact Info) Description 03/07/2024 Orders Only PATIENT PORTAL DO NOT DELETE THIS DEPT USED BY [facility] [place] [id number] Allergies Active Allergy Reactions Criticality Noted Date Comments Adhesive Tape 02/15/2017 Codeine Rash Medium 10/16/2010 Levofloxacin Edema airway High 10/15/2017 Lidocaine Other (Please comment) 02/23/2010 unknown Penicillins Rash 10/14/2000 documented as of this encounter (statuses as of 03/07/2024) Medications oxygen GASIndications:Hypoxia Use 2 L/min(Oxygen) as [...] (HCC),COPD, group D, by GOLD 2017 classification ([facility]) INHALE 1.25MG (1 VIAL) VIA NEBULIZER EVERY [...] BY MOUTH EVERY MORNING 90 Tablet 1 Active Cyclobenzaprine HCl 5 MG Oral Tablet (Flexeril)Indications: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 --appointment needed with PCP for any additional refills 30 Tablet 024 Active documented as of this encounter (statuses as of 03/07/2024) Active Problems Problem Noted Date Diagnosed Date [...] as of this encounter (statuses as of 03/07/2024) Resolved Problems Problem Noted Date Diagnosed Date [...] as of this encounter (statuses as of 03/07/2024) Immunizations Name Administration Dates Next Due COVID-19 [...] on file documented as of this encounter Plan of Treatment Upcoming Encounters Date Type Department Care Team (Late st Contact Info) Description 03/10/2024 7:15 AM EST Laboratory Lab [facility] [address] [place] [address] [facility] Draw [address] [place] [address] 08/05/2024 10:40 AM EDT Telemedicine General Internal Medicine [facility] [place] 200 [facility] [place] [address] Ron Ortega MD [address] [place], [place] [address] Health Maintenance Due Date Last Done Comments [...] D LEVEL ONCE IN A LIFETIME-USE SMARTSET# [id number] Completed 01/17/2021, 04/05/2020, 12/10/2019, Additional history exists [...] 10:18 AM 11/18/2003 10:18 AM Care Teams Optics Test Technician Relationship Specialty Start Date End Date Ron Ortega MD [address] [place] [address] PCP - General Internal Medicine 08/23/17 documented as of this encounter
--- OUTSIDE RECORDS SUMMARY | 2024-06-02 01:49 | External Medical Summary ---
Author Name Unknown Address Unknown Organization [id number]:[facility] [address] [place] [address] Laboratory Report Ordering Provider Test Date Status VINCENT CORREA 03/10/2024 09:01:00 Final Observation Date Value Abnormality Reference (Units ) Status BUN 03/10/2024 09:01:00 12 6-20 (mg/dL) Final Creatinine 03/10/2024 09:01:00 0.8 0.5-1.0 (mg/dL) Final Glomerular filtration rate/1.73 sq M.predicted [Volume Rate/Area] in Serum, Plasma or Blood by Creatinine-based formula (CKD-EPI) 03/10/2024 09:01:00 73 >=60 (mL/min) Final eGFR is calculated based on the CKD-EPI 2020 equation. Sodium 03/10/2024 09:01:00 145 135-146 (m mol/L) Final Potassium 03/10/2024 09:01:00 4.6 3.5-5.1 (m mol/L) Final Cl 03/10/2024 09:01:00 104 98-107 (mm ol/L) Final CO2 03/10/2024 09:01:00 30 22-32 (mmo l/L) Final Anion gap 03/10/2024 09:01:00 11 7-15 (mmol /L) Final Glucose 03/10/2024 09:01:00 94 70-120 (mg /dL) Final Albumin 03/10/2024 09:01:00 4.3 3.8-5.0 (g /dL) Final AST (Aspartate aminotransferase) 03/10/2024 09:01:00 18 10-35 (U/L) Fin al Alk Phos 03/10/2024 09:01:00 126 35-130 (U/ L) Final Bilirubin, Total 03/10/2024 09:01:00 0.3 <=1 .2 (mg/dL) Final Calcium 03/10/2024 09:01:00 10.9 Above high normal 8. 4-10.2 (mg/dL) Final Protein 03/10/2024 09:01:00 7.5 6.0-8.3 (g /dL) Final ALT (Alanine aminotransferase) 03/10/2024 09:01:00 11 10-35 (U/L) Emigdio frederick Performing Location [facility] [address] [facility] [address]
--- OUTSIDE RECORDS SUMMARY | 2024-06-02 01:49 | External Medical Summary ---
Author Name Unknown Address Unknown Organization [id number]:[facility] [address] [place] [address] Laboratory Report Ordering Provider Test Date Status VINCENT CORREA 03/10/2024 09:01:00 Final Observation Date Value Abnormality Reference (Units ) Status WBC, Total 03/10/2024 09:01:00 12.03 Above high normal 4 .00-10.80 (K/uL) Final RBC 03/10/2024 09:01:00 4.59 3.85-5.15 (M/uL) Final Hemoglobin 03/10/2024 09:01:00 13.4 12.0-15.3 (g/dL) Final HCT 03/10/2024 09:01:00 41.7 36.0-45.2 (%) Final MCV 03/10/2024 09:01:00 90.8 81.5-97.5 (fL) Final MCH 03/10/2024 09:01:00 29.2 27.0-34.0 (pg) Final MCHC 03/10/2024 09:01:00 32.1 32.0-36.0 (g/dL) Final RDW 03/10/2024 09:01:00 15.4 11.5-15.5 (%) Final Platelets 03/10/2024 09:01:00 539 Above high normal 14 0-400 (K/uL) Final MPV 03/10/2024 09:01:00 11.0 6.6-11.1 ( fL) Final Performing Location [facility] [address] [place] [address]
--- OUTSIDE RECORDS SUMMARY | 2024-06-02 01:49 | External Medical Summary | Summary of Care ---
Author Name Unknown Organization [facility] Address [address] [place] [address] Phone [phone] Care Team Providers Care Bobtail Driver Name Role Phone Ron Ortega MD Primary Care Provider + Reason for Visit * Reason Onset Date Comments Letter Requests 03/04/2024 Encounter Details Date Type Department Care Team ([facility] Contact Info) Description 03/04/2024 Telephone General Internal Medicine [facility] [address] [place] [address] Ron Ortega MD [address] [place] [address] Letter Requests Allergies Active Allergy Reactions Criticality Noted Date Comments Adhesive Tape 02/15/2017 Codeine Rash Medium 10/16/2010 Levofloxacin Edema airway High 10/15/2017 Lidocaine Other (Please comment) 02/23/2010 unknown Penicillins Rash 10/14/2000 documented as of this encounter (statuses as of 03/06/2024) Medications oxygen GASIndications:Hypoxia Use 2 L/min(Oxygen) as [...] failure with hypoxia, on home oxygen therapy ([facility]) Inhale 3 mL by mouth [...] (HCC),COPD, group D, by GOLD 2017 classification ([facility]) INHALE 1.25MG (1 VIAL) VIA [...] PCP for any additional refills 30 Tablet Active documented as of this encounter (statuses as of 03/06/2024) Active Problems Problem Noted Date Diagnosed Date [...] as of this encounter (statuses as of 03/06/2024) Resolved Problems Problem Noted Date Diagnosed Date [...] as of this encounter (statuses as of 03/06/2024) Immunizations Name Administration Dates Next Due COVID-19 [...] encounter Miscellaneous Notes * Telephone Encounter - Angelina Orellana, MED ASSIST - 03/06/2024 2:42 PM EST Forms successfully faxed to [phone]. Patient aware. * Telephone Encounter - Jackie Calixto OSA - 03/06/2024 9:18 AM EST Patient calling in to check on the status of previous message. Patient Called within 48 hour timeframe. Reminded patient of 48 hour turn-around time. * Telephone Encounter - Mathieu Dobson OSA - 03/05/2024 3:49 PM EST Patient calling in to check on the status of previous message. Patient Called within 48 hour timeframe. Reminded patient of 48 hour turn-around time. * Telephone Encounter - Tatianna Whitten OSA - 03/05/2024 11:04 AM EST Thuy calling in looking for a response to message from yesterday. She is asking if the office has the form that needs completed? Or if she needs to bring a copy of the form to the office? If Dr. Mars is able to fill out the form for pt? It is due tomorrow and she is concerned that she has not heard back yet. Please advise * Telephone Encounter - Zabrina Spivey OSA - 03/04/2024 9:39 AM EST Thuy called because patient was seen yesterday and she is checking if a form for the re-certification of the patient's insurance was completed and faxed. It is due by this Saturday. Please advise. documented in this encounter Plan of Treatment Upcoming Encounters Date Type Department Care Team (Late st Contact Info) Description 03/10/2024 7:15 AM EST Laboratory Lab Mobile Ph[facility]botomy [facility] [address] [place] [address] [facility] Mobile Home Draw [address] [place] [address] 08/05/2024 10:40 AM EDT Telemedicine General Internal Medicine [facility] [place] 200 [place] [address] Ron Ortega MD 200 [facility] [place] [address] Health Maintenance Due Date Last Done Comments [...] D LEVEL ONCE IN A LIFETIME-USE SMARTSET# [id number] Completed 01/17/2021, 04/05/2020, 12/10/2019, Additional history exists [...] 10:18 AM 11/18/2003 10:18 AM Care Teams Bobtail Driver Relationship Specialty Start Date End Date Ron Ortega MD [address] [place] [address] PCP - General Internal Medicine 08/23/17 documented as of this encounter
--- OUTSIDE RECORDS SUMMARY | 2024-06-02 01:49 | External Medical Summary | Summary of Care ---
Author Name Unknown Organization [facility] Address [address] [place] [address] Phone [phone] Care Team Providers Care Statistical Typist Name Role Phone Ron Ortega MD Primary Care Provider + Reason for Visit * Reason Onset Date Comments Medication Refill 02/26/2024 Encounter Details Date Type Department Care Team (Late st Contact Info) Description 02/26/2024 Refill General Internal Medicine [facility] [address] [place] [address] Ron Ortega MD [address] [place] [address] Chronic bilateral low back pain with bilateral sciatica Allergies Active Allergy Reactions Criticality Noted Date Comments Adhesive Tape 02/15/2017 Codeine Rash Medium 10/16/2010 Levofloxacin Edema airway High 10/15/2017 Lidocaine Other (Please comment) 02/23/2010 unknown Penicillins Rash 10/14/2000 documented as of this encounter (statuses as of 03/23/2024) Medications oxygen GASIndications:Hypoxia Use 2 L/min(Oxygen) as [...] failure with hypoxia, on home oxygen therapy ([facility]) Inhale 3 mL by mouth every 6 [...] (HCC),COPD, group D, by GOLD 2017 classification (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 TAKE ONE TABLET BY MOUTH TWICE A DAY NEEDED FOR MUSCLE SPASMS 180 Tablet 023 2023 Disconti nued(Ref ill) documented as of this encounter (statuses as of 03/23/2024) Active Problems Problem Noted Date Diagnosed Date [...] as of this encounter (statuses as of 03/23/2024) Resolved Problems Problem Noted Date Diagnosed Date [...] as of this encounter (statuses as of 03/23/2024) Immunizations Name Administration Dates Next Due COVID-19 [...] Telephone Encounter - Sully Jackson OSA - 03/23/2024 12:06 PM EST Myg message sent * Telephone Encounter - Jumana Mars MD - 02/26/2024 7:44 PM EDTSigned Prescriptions: Disp Refills Cyclobenzaprine HCl 5 MG Oral Tablet (Flex*30 Tab*0 Sig: Take 1 Tablet by mouth 2 times a day as needed for Muscle spasms. --appointment needed with PCP for any additional refills Authorizing Provider: JUMANA MARS * Telephone Encounter - Jumana Mars MD - 02/26/2024 7:42 PM EDT Last seen by Tim 10/2022, schedule appointment with PCP soon. Limited supply RX done * Telephone Encounter - Blessing Strange, electrical plumbing supervisor - 02/26/2024 12:32 PM EDT Did you pend patient's preferred pharmacy and medication before forwarding?yes Pharmacy: [facility] [id number] Pending Prescriptions: Disp Refills Cyclobenzaprine HCl 5 MG Oral Tablet (Fle*180 Ta*0 Last Visit: 10/31/2022 (in office), 05/02/2022 (telemedicine) Next Visit: 08/05/2024 If no future appointments scheduled, and last appointment is greater than a year ago, please schedule patient for a follow-up appointment Last date the medication was ordered: 11/04/2022 Is this request for a controlled substance?No [...] Labs: Lab Results Component Value Date/Time CREAT 0.9 04/04/2023 09:39 AM CREAT 0.9 04/05/2020 01:14 PM POTASSIUM 4.8 04/04/2023 09:39 AM POTASSIUM 4.7 04/05/2020 01:14 PM TSH 0.60 10/02/2019 10:10 AM LDL 86 04/04/2023 09:39 AM LDL 63 01/12/2020 12:38 PM LDL NOT APPLICABLE 01/12/2020 12:38 PM LDLCALC 119 11/14/2009 11:24 AM LDLCALC 119 11/14/2009 11:24 AM ALT 13 04/04/2023 09:39 AM ALT 12 04/05/2020 01:14 PM HGBA1C 5.3 11/14/2009 11:24 AM documented in this encounter Plan of Treatment Upcoming Encounters Date Type Department Care Team (Late st Contact Info) Description 08/05/2024 10:40 AM EDT Telemedicine General Internal Medicine [facility] [place] 200 [facility] [place] [address] Ron Ortega MD 200 [facility] [place] [address] Health Maintenance Due Date Last Done Comments [...] D LEVEL ONCE IN A LIFETIME-USE SMARTSET# [id number] Completed 03/10/2024, 01/17/2021, 04/05/2020, Additional history exists HPV (Gardasil) Vaccine Aged Out No lo nger eligible based on patient's age to complete this topic Hepatitis B Vaccine Aged Out No longe r eligible based on patient's age to complete this topic documented as of this encounter Medical Devices Not on filedocumented as of this encounter Visit Diagnoses Diagnosis Chronic bilateral low back pain with bilateral sciatica documented in this encounter Advance Directives * [...] 10:18 AM 11/18/2003 10:18 AM Care Teams Statistical Typist Relationship Specialty Start Date End Date Ron Ortega MD [address] [place] [address] PCP - General Internal Medicine 08/23/17 documented as of this encounter
--- OUTSIDE RECORDS SUMMARY | 2024-06-02 01:49 | External Medical Summary ---
Author Name Unknown Address Unknown Organization K01:[facility] - [address] [facility] [address] Laboratory Report Ordering Provider Test Date Status VINECNT CORREA 03/10/2024 09:01:00 Final Observation Date Value Abnormality Reference (Units ) Status Triglyceride 03/10/2024 09:01:00 87 <=174 ( mg/dL) Final Triglyceride Reference Range s (mg/dL):
<150 Acceptable
150-174 Borderline high
175-499 High
>=500 Very high Cholesterol 03/10/2024 09:01:00 170 <200 (mg /dL) Final Total Cholesterol Reference Ranges (mg/dL):
<200 Desirable
200-239 Borderline high
>=240 High HDL 03/10/2024 09:01:00 62 >49 (mg/dL ) Final HDL Cholesterol Reference Ra nges (mg/dL):
>=60 High (Desirable)
<50 Low (Undesirable) For Females
<40 Low (Undesirable) For Males NON-HDL CHOLESTEROL 03/10/2024 09:01:00 108 <=159 (mg/dL) Final Non-HDL Cholesterol Referenc e Range (mg/dL):
<100 Target level for high risk ASCVD patient
<130 Optimal for general population
130-159 Near optimal for general population
160-189 Borderline High
190-219 High
>=220 Very High LDL, (calculated) 03/10/2024 09:01:00 91 <= 129 (mg/dL) Final LDL Cholesterol Reference Ra nges (mg/dL):
<70 Target level for high risk ASCVD patient
<100 Optimal for general population
100-129 Near optimal for general population
130-159 Borderline high
160-189 High
>=190 Very high Performing Location [facility] - [address] [facility] [address]
--- OUTSIDE RECORDS SUMMARY | 2024-06-02 01:50 | External Medical Summary | Summary of Care ---
Author Name Unknown Organization [facility] Address [address] [place] [address] Phone [phone] Care Team Providers Care Car Rental Agent Name Role Phone Ron Long MD Primary Care Provider + Reason for Visit * Reason Comments eRx-Medication Refill Encounter Details Date Type Department Care Team ([facility] Contact Info) Description 01/20/2024 Refill General Internal Medicine [facility] [address] [place] [address] Tim Sprague PA-C [address] [place] [address] Anxiety Allergies Active Allergy Reactions Criticality Noted Date Comments Adhesive Tape 02/15/2017 Codeine Rash Medium 10/16/2010 Levofloxacin Edema airway High 10/15/2017 Lidocaine Other (Please comment) 02/23/2010 unknown Penicillins Rash 10/14/2000 documented as of this encounter (statuses as of 01/22/2024) Medications Medication Sig Dispensed Refills Start Date [...] hypoxia, on home oxygen therapy ([facility]) Inhale 3 mL by mouth [...] BEDTIME 30 Tablet 2 04/08/20 23 Active Atorvastatin Calcium 10 MG Oral Tablet (Lipitor)Indications:Pu re hypercholesterolemia TAKE ONE TABLET BY MOUTH EVERY MORNING 90 Tablet 1 06/20/19 24 Active Albuterol Sulfate 1.25 MG/3ML Inhalation Nebulization SolutionIndications:Chr onic respiratory failure with hypoxia (HCC),COPD, group D, by GOLD 2017 classification ([facility]) INHALE 1.25MG (1 VIAL) VIA NEBULIZER EVERY 6 HOURS NEEDED FOR WHEEZING 150 mL 5 07/11/19 24 Active Trelegy Ellipta 100-62.5-25 MCG/ACT Aerosol Powder Breath Activated (Fluticasone-Umeclidini um-Vilanterol) INHALE ONE PUFF BY MOUTH EVERY DAY IN THE MORNING. RINSE MOUTH AFTER USE. STOP ANORO INHALER. 60 Each 2 09/18/19 24 Active Mirtazapine 7.5 MG Oral Tablet (Remeron)Indications:De creased appetite,Weight loss TAKE ONE TABLET BY MOUTH AT BEDTIME 90 Tablet 1 10/22/19 24 Active Escitalopram Oxalate 20 MG Oral Tablet (Lexapro)Indications:An xiety TAKE ONE TABLET BY MOUTH EVERY MORNING 90 Tablet 01/22/20 24 Active Escitalopram Oxalate 20 MG Oral Tablet (Lexapro)Indications:An xiety TAKE ONE TABLET BY MOUTH EVERY MORNING 90 Tablet 1 06/20/19 24 024 Discontinued documented as of this encounter (statuses as of 01/22/2024) Active Problems Problem Noted Date Diagnosed Date [...] as of this encounter (statuses as of 01/22/2024) Resolved Problems Problem Noted Date Diagnosed Date [...] as of this encounter (statuses as of 01/22/2024) Immunizations Name Administration Dates Next Due COVID-19 [...] Up, IM, (Flucelvax Quad) 05/05/2023 Seasonal Influenza Virus Vac cine, Unspecified Formulation 03/12/2019,01/10/2018,03/11/2017,01/27,01/25/2014,01/14/2013,03/13/20 12,01/18/2011,01/24/2010 Seasonal Influenza, High Dos e, Trivalent, PF, IM (Fluzone HD) 02/10/2016 02/09/2017 Seasonal Influenza, PF, 6 M & above, IM , (FluLaval or Fluzone) 01/10/2018,03/11/2017 Seasonal Influenza, Quadriva lent Hd (Fluzone Hd) 01/17/2021 Seasonal Influenza, Quadriva lent Hd, 65+ Yrs 02/06/2020 Seasonal Influenza, Quadriva lent, No Preserve, IM 05/10/2015 Seasonal Influenza, Trivalen t, (IIV3), with Preserv, (Fluzone) 01/25/2014,01/14/2013,03/13/2012,12/29,01/24/2010 Seasonal Influenza, Trivalen t, Adjuvanted, 65+ YRS, [...] Miscellaneous Notes * Telephone Encounter - Ron Long MD - 01/22/2024 8:53 AM EDT Signed Prescriptions: Disp Refills Escitalopram Oxalate 20 MG Oral Tablet (Le*90 Tab*0 Sig: TAKE ONE TABLET BY MOUTH EVERY MORNING Authorizing Provider: RON LONG * Telephone Encounter - Tina Willett, core shaper top - 01/21/2024 5:13 PM EDT Pending Prescriptions: Disp Refills Escitalopram Oxalate 20 MG Oral Tablet (Le*90 Tab*0 Sig: TAKE ONE TABLET BY MOUTH EVERY MORNING * Telephone Encounter - Tina Willett core shaper top - 01/21/2024 5:12 PM EDT Received message from [facility] regarding patient needing an appointment. Call Placed, Left message on voicemail to call back and schedule appointment. Thank you for your assistance Tina Willett Transportation Sales Consultant II [facility] 01/21/2024,5:12 PM * Telephone Encounter - Pam Houser [facility] - 01/21/2024 11:22 AM EDT Pending Prescriptions: Disp Refills Escitalopram Oxalate 20 MG Oral Tablet (Le*90 Tab*0 Sig: TAKE ONE TABLET BY MOUTH EVERY MORNING * Telephone Encounter - Pam Houser [facility] - 01/21/2024 11:21 AM EDT Please contact patient so that an appointment can be scheduled with her PRIMARY CARE provider before this refill can be authorized. After contacting patient, please forward request to Ron Long MD. Last Visit: 10/31/2022 (in office), 05/02/2022 (telemedicine) Next Visit: Visit date not found Thank you, Pam Houser [facility] Clinical Pharmacist [facility] 01/21/24 11:21 AM [phone] * Telephone Encounter - Pam Houser RPh - 01/21/2024 11:20 AM EDT Did you pend patient's preferred pharmacy and medication before forwarding?yes Pharmacy: [facility] [address] [place] [address] Pending Prescriptions: Disp Refills Escitalopram Oxalate 20 MG Oral Tablet (L*90 Tab*1 Sig: TAKE ONE TABLET BY MOUTH EVERY MORNING Last Visit: 10/31/2022 (in office), 05/02/2022 (telemedicine) Next Visit: Visit date not found If no future appointments scheduled, and last appointment is greater than a year ago, please schedule patient for a follow-up appointment Last date the medication was ordered: 06/20/2023 Is this request for a controlled substance?No [...] documented in this encounter Plan of Treatment Health Maintenance Due Date Last Done Comments [...] D LEVEL ONCE IN A LIFETIME-USE SMARTSET# [id number] Completed 01/17/2021, 04/05/2020, 12/10/2019, Additional history exists HPV (Gardasil) Vaccine Aged Out No lo nger eligible based on patient's age to complete this topic Hepatitis B Vaccine Aged Out No longe r eligible based on patient's age to complete this topic documented as of this encounter Medical Devices Not on filedocumented as of this encounter Visit Diagnoses Diagnosis Anxiety Anxiety state, unspecified documented in this encounter Advance Directives * [...] 10:18 AM 11/18/2003 10:18 AM Care Teams Car Rental Agent Relationship Specialty Start Date End Date Ron Long MD [address] [facility] [place] [address] PCP - General Internal Medicine 08/23/17 documented as of this encounter
--- OUTSIDE RECORDS SUMMARY | 2024-06-02 01:50 | External Medical Summary | Summary of Care ---
Author Name Unknown Organization [facility] Address [address] [place] [address] Phone [phone] Care Team Providers Care Teaching Pastor Name Role Phone Ron Long MD Primary Care Provider + Reason for Visit * Reason Comments eRx-Medication Refill Encounter Details Date Type Department Care Team ([facility] Contact Info) Description 02/21/2024 Refill General Internal Medicine [facility] [address] [place] [address] Ron Long MD [address] [place] [address] Allergies Active Allergy Reactions Criticality Noted Date Comments Adhesive Tape 02/15/2017 Codeine Rash Medium 10/16/2010 Levofloxacin Edema airway High 10/15/2017 Lidocaine Other (Please comment) 02/23/2010 unknown Penicillins Rash 10/14/2000 documented as of this encounter (statuses as of 02/21/2024) Medications Medication Sig Dispensed Refills Start Date [...] FAILURE WITH HYPOXEMIA 1 Each 1 11/07/19 22 Active PreserVision AREDS Oral Tablet Take by [...] (HCC),COPD, group D, by GOLD 2017 classification ([facility]) INHALE 1.25MG (1 VIAL) VIA NEBULIZER EVERY [...] INHALER. 180 Each 1 02/21/20 24 Active Trelegy Ellipta 100-62.5-25 MCG/ACT Aerosol Powder Breath Activated (Fluticasone-Umeclidini um-Vilanterol) INHALE ONE PUFF BY MOUTH EVERY DAY IN THE MORNING. RINSE MOUTH AFTER USE. STOP ANORO INHALER. 60 Each 2 09/18/19 24 024 Discontinued documented as of this encounter (statuses as of 02/21/2024) Active Problems Problem Noted Date Diagnosed Date [...] as of this encounter (statuses as of 02/21/2024) Resolved Problems Problem Noted Date Diagnosed Date [...] as of this encounter (statuses as of 02/21/2024) Immunizations Name Administration Dates Next Due COVID-19 [...] encounter Miscellaneous Notes * Telephone Encounter - Lawson Gonzalez, [facility] - 02/21/2024 10:50 AM EDTSigned Prescriptions: Disp Refills Trelegy Ellipta 100-62.5-25 MCG/ACT Aeroso*180 Ea*1 Sig: INHALE ONE PUFF BY MOUTH EVERY DAY IN THE MORNING. RINSE MOUTH AFTER USE. STOP ANORO INHALER. Authorizing Provider: RON LONG Ordering User: LAWSON GOULD * Telephone Encounter - Nikolas Brian, pension examiner - 02/21/2024 10:45 AM EDT Pt is out of medication. Did you pend patient's preferred pharmacy and medication before forwarding?yes Pharmacy: [facility] [id number] Pending Prescriptions: Disp Refills Trelegy Ellipta 100-62.5-25 MCG/ACT Aeros*60 Each2 Sig: INHALE ONE PUFF BY MOUTH EVERY DAY IN THE MORNING. RINSE MOUTH AFTER USE. STOP ANORO INHALER. Last Visit: 10/31/2022 (in office), 05/02/2022 (telemedicine) Next Visit: 08/05/2024 If no future appointments scheduled, and last appointment is greater than a year ago, please schedule patient for a follow-up appointment Last date the medication was ordered: 09/18/2023 Is this request for a controlled substance?No [...] 10:40 AM EDT Telemedicine General Internal Medicine [facility] [address] [facility] [place] [address] Ron Long MD [address] [facility] [place] [address] Health Maintenance Due Date Last Done Comments [...] D LEVEL ONCE IN A LIFETIME-USE SMARTSET# [id number] Completed 01/17/2021, 04/05/2020, 12/10/2019, Additional history exists [...] 10:18 AM 11/18/2003 10:18 AM Care Teams Teaching Pastor Relationship Specialty Start Date End Date Ron Long MD [address] [place] [address] PCP - General Internal Medicine 08/23/17 documented as of this encounter
--- OUTSIDE RECORDS SUMMARY | 2024-06-02 01:50 | External Medical Summary | Summary of Care ---
Author Name Unknown Organization [facility] Address [address] [place] [address] Phone [phone] Care Team Providers Care Mastic Floor Layer Name Role Phone Ron Ortega MD Primary Care Provider + Encounter Details Date Type Department Care Team (Late st Contact Info) Description 01/14/2024 Orders Only [facility] Department [address] [place] [address] Radha Scott CHRA [facility] Other*[id number] Allergies Active Allergy Reactions Criticality Noted Date Comments Adhesive Tape 02/15/2017 Codeine Rash Medium 10/16/2010 Levofloxacin Edema airway High 10/15/2017 Lidocaine Other (Please comment) 02/23/2010 unknown Penicillins Rash 10/14/2000 documented as of this encounter (statuses as of 01/14/2024) Medications Medication Sig Dispensed Refills Start Date [...] hypoxia, on home oxygen therapy ([facility]) Inhale 3 mL by mouth every 6 hours as needed (wheezing). One vial in nebulizer every six hour as needed 120 mL 2 Active Zoster Vac Recomb Adjuvanted 50 MCG/0.5ML Intramuscular Suspension Reconstituted (Shingrix)Indications:Nee d for shingles vaccine Inject 0.5 mL into a large muscle now and repeat dose in 60 to 180 days 1 Each 1 3 Active Cyclobenzaprine HCl 5 MG Oral Tablet (Flexeril)Indications:Chr onic bilateral low back pain with bilateral sciatica TAKE ONE TABLET BY MOUTH TWICE A DAY NEEDED FOR MUSCLE SPASMS 180 Tablet 3 Active hydrOXYzine HCl 25 MG Oral TabletIndications:Panic attacks TAKE ONE TABLET BY MOUTH EVERY DAY NEED FOR ANXIETY AND FOR SLEEP AT BEDTIME 30 Tablet 2 3 Active Atorvastatin Calcium 10 MG Oral Tablet (Lipitor)Indications:Pure hypercholesterolemia TAKE ONE TABLET BY MOUTH EVERY MORNING 90 Tablet 1 4 Active Escitalopram Oxalate 20 MG Oral Tablet (Lexapro)Indications:Anxi ety TAKE ONE TABLET BY MOUTH EVERY MORNING 90 Tablet 1 4 Active Albuterol Sulfate 1.25 MG/3ML Inhalation Nebulization SolutionIndications:Chron ic respiratory failure with hypoxia (HCC),COPD, group D, by GOLD 2017 classification ([facility]) INHALE 1.25MG (1 VIAL) VIA NEBULIZER EVERY 6 HOURS NEEDED FOR WHEEZING 150 mL 5 4 Active Trelegy Ellipta 100-62.5-25 MCG/ACT Aerosol Powder Breath Activated (Fluticasone-Umeclidinium -Vilanterol) INHALE ONE PUFF BY MOUTH EVERY DAY IN THE MORNING. RINSE MOUTH AFTER USE. STOP ANORO INHALER. 60 Each 2 4 Active Mirtazapine 7.5 MG Oral Tablet (Remeron)Indications:Decr eased appetite,Weight loss TAKE ONE TABLET BY MOUTH AT BEDTIME 90 Tablet 1 4 Active documented as of this encounter (statuses as of 01/14/2024) Active Problems Problem Noted Date Diagnosed Date [...] as of this encounter (statuses as of 01/14/2024) Resolved Problems Problem Noted Date Diagnosed Date [...] 11/18/2003 12/21/2016 MAL BHUPENDRA LYMPH-INTRATHOR 10/11/200311/28 MAL BHUPENRDA UPPER LOBE LUNG 10/11/200311/28 COPD, moderate 10/08/2018 Overview: Per COPD GOLD Classification documented as of this encounter (statuses as of 01/14/2024) Immunizations Name Administration Dates Next Due COVID-19 [...] as of this encounter Plan of Treatment Scheduled Orders Name Type Priority Associated Diagnoses Orde r Schedule MYCODE SUBSEQUENT ADULT Lab Routine [facility] Other*[id number] Every 6 Months for 2 Occurrences starting 01/14/2024 until 02/02/2025 Health Maintenance Due Date Last Done Comments [...] D LEVEL ONCE IN A LIFETIME-USE SMARTSET# [id number] Completed 01/17/2021, 04/05/2020, 12/10/2019, Additional history exists HPV (Gardasil) Vaccine Aged Out No lo nger eligible based on patient's age to complete this topic Hepatitis B Vaccine Aged Out No longe r eligible based on patient's age to complete this topic documented as of this encounter Medical Devices Not on filedocumented as of this encounter Visit Diagnoses Diagnosis [facility] Other*[id number] documented in this encounter Advance Directives * [...] 10:18 AM 11/18/2003 10:18 AM Care Teams Mastic Floor Layer Relationship Specialty Start Date End Date Ron Ortega MD [address] [place] [address] PCP - General Internal Medicine 08/23/17 documented as of this encounter
[2024-06-02] MEDS: methylPREDNISolone 40 MG in SYRINGE 0 ML IV SCH (05:32)
[2024-06-02 05:56] LABS: Basophils # (auto) 0.04 K/uL (0.00-0.20); Basophils % (auto) 0.4 %; Hematocrit (blood only) 36.5 % (37.0-47.0); Hemoglobin 11.6 g/dl (12.0-16.0); Immature Granulocytes # (auto) 0.05 K/uL (0.01-0.20); Immature Granulocytes % (auto) 0.5 %; Lymphocytes # (auto) 1.87 K/uL (1.20-3.40); Lymphocytes % (auto) 18.5 %; Mean Corpuscular Hemoglobin 28.6 pg (25.0-34.0); Mean Corpuscular Hgb Conc 31.8 g/dL (32.0-36.0); Mean Corpuscular Volume 90.1 fL (80.0-100.0); Mean Platelet Volume 10.6 fL (9.4-12.4); Monocytes # (auto) 0.17 K/uL (0.11-0.59); Monocytes % (auto) 1.7 %; Neutrophils # (auto) 7.98 K/uL (1.40-6.50); Neutrophils % (auto) 78.9 %; Platelet Count 486 K/uL (130-400); RDW Coefficient of Variation 14.9 % (11.5-14.5); RDW Standard Deviation 49.5 fL (36.4-46.3); Red Blood Count 4.05 M/uL (4.20-5.40); White Blood Count 10.11 K/ul (4.8-10.8)
[2024-06-02 06:07] LABS: BUN Creatinine Ratio 33.3 (10-20); Calcium 10.8 mg/dl (8.6-10.3); Creatinine Clr Calc Pharmacy 43.3 ml/min; Magnesium 2.3 mg/dl (1.7-2.4); Potassium 5.3 mmol/L (3.5-5.1)
[2024-06-02] MEDS: ALBUT/IPRATROP 3MG/0.5MG NEB 3 ML VIAL NEB SCH (07:14)
[2024-06-02] MEDS: ESCITALOPRAM OXALATE 20 MG TAB PO SCH (08:47)
[2024-06-02] MEDS: AZITHROMYCIN 250 MG TAB PO SCH (08:47)
[2024-06-02] MEDS: ASPIRIN 81 MG ECTAB PO SCH (08:47)
[2024-06-02] MEDS: ATORVASTATIN 10 MG TAB PO SCH (08:48)
[2024-06-02] MEDS: FORMOTEROL 20 MCG/2 ML VIAL NEB SCH (08:59)
[2024-06-02] MEDS: BUDESONIDE 0.5 MG/2 ML VIAL (PULMICORT) NEB SCH (08:59)
[2024-06-02] MEDS ORDERED: BIFIDOBACTERIUM INFANTIS 4 MG PO SCH (09:00)
[2024-06-02] MEDS ORDERED: methylPREDNISolone 125 MG/2 ML VIAL IV SCH (09:00)
[2024-06-02] MEDS ORDERED: FLUTICASONE FUROATE 100MCG 14 PUFFS/INHALER INH SCH (09:00)
[2024-06-02] MEDS ORDERED: UMECLIDINIUM/VILANTEROL 62.5/25MCG 7 PUFFS/INHALER INH SCH (09:00)
[2024-06-02] MEDS ORDERED: DOXYCYCLINE HYCLATE 100 MG CAP PO SCH (09:00)
[2024-06-02] MEDS ORDERED: NON-FORMULARY MEDICATION (Fluticasone-Umeclidin-Vilanter [Trelegy Ellipta] 100-62.5-25 mcg INH SCH (09:00)
[2024-06-02] MEDS ORDERED: [UNRECOGNIZED DRUG - OTHER] PO SCH (09:00)
[2024-06-02] MEDS: cefTRIAXone SODIUM 2,000 MG/50 ML BAG IV SCH (09:12)
--- NOTE | 2024-06-02 09:13 | Electrocardiogram Report ---
Test Reason : Blood Pressure : */* mmHG Vent. 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
[2024-06-02] MEDS: SODIUM CHLORIDE 0.65% NA SOLN 45 ML (OCEAN) SCH (09:49)
--- NOTE | 2024-06-02 13:20 | Hospitalist Progress Note ---
Date of Service June 02, 2024 Assessment & Plan (1) Acute exacerbation of chronic obstructive pulmonary disease: Plan: 84-year-old female with past medical history significant for COPD, chronic respiratory failure with hypoxia on 4 L oxygen at home, pulmonary hypertension, diastolic dysfunction, moderate mitral regurgitation, severe protein calorie malnutrition, GERD, congenital single kidney, osteoporosis, contracture of hand, thrombocytosis, lumbar spinal stenosis, history of lung cancer, history of splenectomy, history of CVA, history of CKD, hypertension, depression, who lives at home and nonambulatory status because of contractures in the legs and lately daughter is living with her who helps with her ambulation comes because of ongoing shortness of breath and cough. Acute exacerbation of COPD Acute on chronic hypercapnic respiratory failure Patient presents with shortness of breath, cough History of COPD on 4 to 4.5 L of oxygen Chest x-ray mild homogeneous haziness in right lower lung. Prominent bilateral bronchovascular markings. Continue [id number] DuoNebs, nebulized budesonide, formoterol nebs. 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 Vital signs stable and she is at baseline oxygen level of 3 L/min Review of Systems Review of Systems: All systems reviewed & are unremarkable except as noted in Subjective Physical Exam Physical Exam: General- Not in acute distress Head- atraumatic Eyes- PERRL. Neck- supple, no JVD. Lungs- Bilateral occasional wheeze Heart- regular rhythm; no murmur, no gallop. Abdomen- normal bowel sounds, soft, nontender, no distension Extremities- no pretibial edema, no erythema seen Neuro- alert, oriented x 3; PERRL, no facial palsy; no dysarthria; moves extremities Skin- stage 1 decubitus ulcer in sacral and lumbar region Results & Data Results & Data Vital Signs (Past 12 Hours) Vital Signs Temp Pulse Pulse Resp BP Pulse Ox O2 Del Method 06/02/24 11:14 36.6 C 100 H 18 129/78 94 Nasal Cannula 06/02/24 09:00 Nasal Cannula 06/02/24 09:00 84 16 97 Nasal Cannula 06/02/24 07:20 36.5 C 80 17 157/75 H 99 Nasal Cannula 06/02/24 07:15 80 15 98 Nasal Cannula 06/02/24 07:06 77 06/02/24 03:23 36.4 C L 77 18 172/91 H 100 Nasal Cannula O2 Flow Rate 06/02/24 11:14 3 06/02/24 09:00 4 06/02/24 09:00 3 06/02/24 07:20 5 06/02/24 07:15 4 06/02/24 07:06 06/02/24 03:23 5
[2024-06-02 20:54] LABS: BUN Creatinine Ratio 24.6 (10-20); Calcium 10.2 mg/dl (8.6-10.3); Creatinine Clr Calc Pharmacy 29.3 ml/min; Potassium 4.9 mmol/L (3.5-5.1)
[2024-06-02] MEDS: MIRTAZAPINE TAB 15 MG TAB PO SCH (21:30)
[2024-06-03] MEDS: ALBUT/IPRATROP 3MG/0.5MG NEB 3 ML VIAL NEB SCH (07:19)
[2024-06-03 07:51] LABS: Basophils # (auto) 0.02 K/uL (0.00-0.20); Basophils % (auto) 0.1 %; Eosinophils # (auto) 0.01 K/uL (0.00-0.50); Eosinophils % (auto) 0.1 %; Hemoglobin 11.2 g/dl (12.0-16.0); Immature Granulocytes % (auto) 0.6 %; Mean Corpuscular Hemoglobin 28.9 pg (25.0-34.0); Mean Corpuscular Hgb Conc 32.9 g/dL (32.0-36.0); Mean Corpuscular Volume 87.6 fL (80.0-100.0); Mean Platelet Volume 10.4 fL (9.4-12.4); Monocytes # (auto) 0.53 K/uL (0.11-0.59); Monocytes % (auto) 3.4 %; Neutrophils # (auto) 12.85 K/uL (1.40-6.50); Neutrophils % (auto) 81.8 %; Platelet Count 494 K/uL (130-400); RDW Coefficient of Variation 14.7 % (11.5-14.5); RDW Standard Deviation 47.3 fL (36.4-46.3); Red Blood Count 3.88 M/uL (4.20-5.40); White Blood Count 15.71 K/ul (4.8-10.8)
[2024-06-03 08:13] LABS: BUN Creatinine Ratio 36.4 (10-20); Calcium 10.5 mg/dl (8.6-10.3); Creatinine Clr Calc Pharmacy 40.3 ml/min; Potassium 5.6 mmol/L (3.5-5.1)
--- NOTE | 2024-06-03 09:30 | Palliative Care Consultation ---
Date of Consultation June 03, 2024 Assessment & Plan (1) Palliative care by specialist: (2) Counseling regarding advanced directives and goals of care: Pt requests DNR/DNI. Goals established for ongoing life prolonging therapy. (3) HANNA (dyspnea on exertion): (4) POLST (Physician Orders for Life-Sustaining Treatment): Pt expressed wish for DNR/DNI, no artificial feeds but continue life prolonging therapy..POLST haroldo be completed prior to DC. home. Plan 45 min GOC discussion held with pt and her dtr Corinna Jacob today. Introduced Palliative Medicine and explained our role in advanced care planning, symptom management and navigation through the progression of life limiting disease. Patient and/or family were receptive to palliative services for goals of care discussions. Reviewed we are different from hospice, a home health nurse visiting service. Patient has exhibits current possession of decisional capacity based on the ability to convey understanding of personal PMHx, current medical condition, treatment options as well as the risks / benefits of those options, and ability to make decisions based on such knowledge. Hospital does not have written documentation of patient wishes concerning her chosen proxy for medical decisions. Per PA [id number], in absence of written documentation of patient wishes, pt's proxy for medical decisions would be her daughter Corinna. Pt does not require a proxy for medical decisions at this time. Corinna shared that pt had completed a LW many years ago and agrees to bring it to hospital on her next visit, likely tomorrow. Pt shared that Corinna is her chosen MDM proxy. We discussed pt's medical history, admission course and deconditioned state. 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 Pt shared that she does "pretty well" at home but does admit to being mostly se dentary because of HANNA, even with minimal exertion. 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 Corinna shared that pt follows with her pot lining supervisor, PCP and cardiology but each trip out of the house iis "a major production" and difficult for both of them. Corinna asked if there is a single PCP that could manage all of her health concerns.. I suggested she start by discussing with the current PCP willingness to manage her COPD. Helped them both to understand COPD as a progressively debilitating disease that will not improve over time but symptoms could be managed through pot lining supervisor or outpt palliative care clinic..Pt is amenable to outpt f/u with paliative care team for symptm management as well as navigation through progression marcia hher disease. Discussed the typical progression of COPD and likely increasing oxygen demand progressing to dependence on more aggressive forms of ventilation assistance including Bipap and eventual ventilator dependence. Pt shared that she would never want to be dependent on machines for life including bipap, she shared that if it comes to that she would like to be home and have her symptoms managed without need to leave house. Discussed hospice benefit: an interdisciplinary program offered by nurses, nurses aides, social workers, chaplains and a medical staff specialist for patients with a terminal condition and a life expectancy of less than 6 months. This is covered by Medicare at 100%/no out of pocket expense to patient and all meds/supplies needed by patient for the reason they are on hospice are paid for/covered by hospice. The goal is assure quality of life of the patient in their home setting (home, long term, inpatient hospice setting) by providing symptoms management, psychosocial and spiritual support. However, they cannot offer 24 hours care and if the family is unable to provide that care, they will have to consider personal care with out of pocket cost vs. long term placement. We discussed the goals of hospice as a patient service and the goals of care; we discussed EOL trajectories and transitions colt the emotional impact of realizing mortality as a concrete reality from prior abstract considerations. Pt was reassured that no matter where they are along this trajectory, they are not alone - their medical team will remain by their side through their journey. Discussed the pros/cons of accepting help when especially weakened and distressed by pain-which would also help provide relief/decrease caregiver burden/strain. Given ppt's verbalized wish to avoid mechanical ventilation,wwe discussed code status and helped them understand that CPR is only done after a person has and involves uncomfortable and invasive procedures that, if successful. have high risk of multiple complications including but not limited to rib fractures, pneumo/hemothorax, COURT, ventilator dependence, anoxic brain injury, and long t erm/permanent cognitive and functional deficits. CPR survival: Only about 10% of patients who have sjb-wp-eiblpugy sudden cardiac arrest survive to hospital discharge, with many survivors having ne urologic impairment. This rate is even lower among patients with serious coexisting conditions, ie chance of survival to hospital discharge for in- hospital CPR in older people is low to moderate (15%) and decreases with age, [id number], performance status and frailty: for pts > 70 yo, more than half of the patients who initially survived resuscitation in the hospital before hospital discharge. The pooled survival to discharge after in-hospital CPR was 18% for patients between 70 and 79 years old, 15% for patients between 80 and 89 years old and 11% for patients of 90 years and older. (Jamari PHELPSY, Gino LJ, Moon F, et al. Trends in short- and long-term survival among mpz-wb-[id number] cardiac arrest patients alive at hospital arrival. Circulation 2014;130:1883- 1890. AND Philippe C, Malik T, Dorina R, et al. Performance of clinical risk scores to predict mortality and neurological outcome in cardiac arrest patients. Resuscitation 2019;136:21-29.) Pt shared belief that she would not get any benefit from resuscitation and requests DNR/DNI status, but does still want other life prolonging therapies. Discussed POLST form aand tthe bbenefit marcia hhaving oone aat home to promote her goals of care outside of the hospital. pt agreeable to completing POLST prior to discharge. History of Present Illness Reason for Consultation: goals of care, consult placed 2/2 meeting palliative triggers Requesting Physician: Dominik Darnell MD Attending Physician: Dominik Darnell MD History of Present Illness Ms Jacob is a 84yo female withPMHx of COPD, chronic hypoxic respiratory failure baseline 4 L oxygen, pulmonary HTN, diastolic dysfunction, moderate MVR, severe protein calorie malnutrition, GERD, CKD, iso congenital single kidney, oste oporosis, contracture of legs/ hand, thrombocytosis, lumbar spinal stenosis, lung cancer, splenectomy, CVA, HTN, depression, who lives at home with her daughter. She is nonambulatory 2/2 contractures of legs. She has HANNA with oxygen saturation dropping to 80% and tachycardia requiring about 10 minutes to recover. Pt presents to ED on 06/01/24 after 2mo of progressive SOB, HANNA and productive cough (thick brownish phlegm). Allergies Allergy/AdvReac Type Severity Reaction Status Date / Time levofloxacin [From Levaquin] Allergy Severe airway Verified 10/19/21 20:02 edema Penicillins Allergy Unknown hives Unverified 10/27/19 09:19 procaine Allergy Unknown SWELLING Verified 10/27/19 09:19 codeine AdvReac Unknown GI UPSET Unverified 10/27/19 09:19 lidocaine AdvReac Unknown Verified 10/19/21 20:03 Home Medications Medication Instructions Recorded Confirmed Type Bifidobacterium infantis 4 mg 4 mg PO DAILY 06/01/24 06/01/24 History capsule (Align (B.infantis)) albuterol sulfate 1.25 mg/3 mL 1.25 mg continuous nebulization 06/01/24 06/01/24 History solution for nebulization Q6H PRN Shortness Of Breath Or Wheezing aspirin 81 mg tablet,delayed 81 mg PO DAILY 06/01/24 06/01/24 History release atorvastatin 10 mg tablet 10 mg PO DAILY 06/01/24 06/01/24 History escitalopram oxalate 20 mg tablet 20 mg PO DAILY 06/01/24 06/01/24 History fluticasone fur. 100 mcg-umeclid 1 inh inhalation DAILY 06/01/24 06/01/24 History 62.5 mcg-vilant 25 mcg inhalat.powder (Trelegy Ellipta) vsomhlavfhv-wddoxlxmuna-kid C-cori 2 tab PO DAILY 06/01/24 06/01/24 History 250 mg-200 mg-30 mg-2.5 mg tablet (Glucosamine-Chondroitin Complex) mirtazapine 7.5 mg tablet 7.5 mg PO HS 06/01/24 06/01/24 History vitamins A,C,X-tnam-fbcvdq 4,296 1 cap PO BID 06/01/24 06/01/24 History mcg-226 mg-90 mg capsule (PreserVision AREDS) Patient History Medical History (Updated 06/03/24 @ 23:27 by ANGELINE Mosley) Spasms of the hands or feet Hypercalcemia Hyperkalemia Hypercarbia Chronic respiratory failure with hypoxia, on home O2 therapy Encephalopathy Hyperlipidemia Stroke Bronchitis COPD (chronic obstructive pulmonary disease) Chronic pain syndrome (10/13/10) Surgical History History of tonsillectomy and adenoidectomy History of bladder surgery History of adrenal surgery History of hysterectomy History of lung surgery Family History (Updated 10/19/21 @ 20:16 by Alejandrina Scanlon PA-C) Mother Glaucoma Father Cancer Lung cancer Other Allergies No family history of bleeding disorder Social History (Updated 10/19/21 @ 20:16 by Alejandrina Scanlon PA-C) Smoking Status: Former smoker Tobacco Type: Cigarettes Cigarettes Per Day: 15; Smoking End Date: 2022; Second Hand Exposure: No; Do You Dip or Chew Tobacco: No; Hx Alcohol Use: Yes Alcohol type: wine Hx Substance Use: Yes Last Used Substance: Days (ago) Substance Use Type Other:: uses marijuana couples times a month with a vape Preferred Language: Belgian Communication Ability: Effective Communication Ability Comment: Confused Visual Impairment: No Limitations Hearing Ability: Normal Wrecker Operator Required: No Beliefs That Will Affect Care: None Current Living Situation: Family Current Living Situation Comment: Lives with her daughter Corinna current occupational status: retired Other Information That Helps Us Care for You: No Feels Safe at Home: Yes Safety Concerns: Feels Safe At This Time Assistive Devices: Hospital Bed, Oxygen - Continuous, Wheelchair and Other Assistive Devices Comment: total care required Review of Systems Review of Systems: P. Denies any chest pain. Denies headache. No runny nose or sore throat currently. Afebrile. Hemodynamics okay currently. Constitutional: + fatigue, + malaise and + weakness; no fever Respiratory: + cough, + chest congestion, + dyspnea o n exertion and + sputum production Gastrointestinal: + constipation; no abdominal pain, no na usea, no vomiting and no change in stools Neurologic: + unsteadiness and + problem reported; n o headache(s) Physical Exam Physical Exam: nsion Extremities- no pretibial edema, no erythema seen Skin- stage 1 decubitus ulcer in sacral and lumbar region Constitutional: well developed, well nourished and comfortable NAD ON 4l nc Eyes: PERRL, conjunctivae normal, anicteric sclerae ENMT: external ear and nose normal, oropharynx normal Neck: trachea midline, no thyromegaly Respiratory: normal respiratory effort Auscultation: + diminished lung sounds and + wheezes Cardiovascular: Rate/Rhythm: + irregularly irregular Extremities: normal capillary refill and + edema Gastrointestinal (Abdomen): normal bowel sounds, soft, nontender, no hepatosplenomegaly Neurologic: alert, oriented x 3; PERRL, no facial palsy; no dysarthria; moves extremities Results & Data Vital Signs (Past 12 Hours) Vital Signs Temp Pulse Pulse Resp BP Pulse Ox O2 Del Method 06/03/24 08:00 36.6 C 77 16 170/50 H 95 Nasal Cannula 06/03/24 07:02 79 06/03/24 03:59 36.9 C 91 H 19 152/77 H 95 Nasal Cannula 06/02/24 23:33 36.7 C 93 H 19 147/76 H 98 Nasal Cannula 06/02/24 21:52 100 H 06/02/24 21:30 Nasal Cannula O2 Flow Rate 06/03/24 08:00 5 06/03/24 07:02 06/03/24 03:59 5 06/02/24 23:33 5 06/02/24 21:52 06/02/24 21:30 5 Laboratory Results Abnormal lab results 06/02/24 06/03/24 Range/Units 20:15 07:25 WBC 15.71 H (4.8-10.8) K/ul RBC 3.88 L (4.20-5.40) M/uL Hgb 11.2 L (12.0-16.0) g/dl Hct 34.0 L (37.0-47.0) % RDW Std Deviation 47.3 H (36.4-46.3) fL RDW Coeff of Lora 14.7 H (11.5-14.5) % Plt Count 494 H (130-400) K/uL Neut # (Auto) 12.85 H (1.40-6.50) K/uL Sodium 134 L (136-145) mmol/L Potassium 5.6 H (3.5-5.1) mmol/L Chloride 94 L 96 L (98-107) mmol/L Carbon Dioxide 35 H 38 H (21-32) mmol/L Anion Gap 2 L (3-11) BUN 30 H 32 H (6-23) mg/dl Creatinine 1.22 H D (0.6-1.2) mg/dl BUN/Creatinine Ratio 24.6 H 36.4 H (10-20) Glucose 155 H 131 H (70-99(Fasting)) mg/dl Calcium 10.5 H (8.6-10.3) mg/dl Diagnostic Findings Chest X-Ray 06/01/24 17:43 EXAM: XR chest 1V portable CLINICAL HISTORY: Dyspnea. TECHNIQUE: An X-ray image of the chest is obtained in AP projection. COMPARISON: CR dated 10/25/2021. FINDINGS: Pulmonary Parenchyma: Prominent bilateral bronchovascular markings. A mild inhomogenous haziness is noted in the right lower zone Veiling of the left costophrenic angle. No pulmonary nodules are identified. No evidence of pleural effusion or pleural thickening. Heart and Mediastinum: Heart size and shape are normal. No mediastinal widening or masses. No hilar or mediastinal lymphadenopathy. Bony Thorax: Scoliosis of the thoracic spine to the left side. Arthritic changes of the left glenohumeral and acromioclavicular joints. Soft Tissues: Soft tissues overlying the chest wall are unremarkable. IMPRESSION: 1. Prominent bilateral bronchovascular markings. These could probably represent early/mild inflammatory/infectious etiology. 2. A mild inhomogenous haziness is noted in the right lower zone suggesting a possible developing infiltrate, advise clinical correlation and follow-up. 3. Further evaluation with CT is recommended if clinically warranted. Electronically signed by Clarissa Mena 06-01-2024 7:49 PM Medications Administered Current Inpatient Medications Acetaminophen (Acetaminophen 325 Mg Tab) 650 mg PO Q4H PRN PRN Reason: Pain or Fever Stop: 07/01/24 22:14 Albuterol (Albut/Ipratrop 3mg/0.5mg Neb 3 Ml Vial) 3 ml NEB Q4H PRN; Protocol PRN Reason: Shortness Of Breath Or Wheezing Stop: 07/01/24 22:14 Albuterol (Albut/Ipratrop 3mg/0.5mg Neb 3 Ml Vial) 3 ml NEB QIDR SANCHEZ; Protocol Stop: 07/03/24 06:59 Last Admin: 06/03/24 07:19 Dose: Not Given Aspirin (Aspirin 81 Mg Ectab) 81 mg PO DAILY [facility] Stop: 07/02/24 08:59 Last Admin: 06/03/24 08:19 Dose: 81 mg Atorvastatin Calcium (Atorvastatin 10 Mg Tab) 10 mg PO DAILY [facility] Stop: 07/02/24 08:59 Last Admin: 06/03/24 08:19 Dose: 10 mg Azithromycin (Azithromycin 250 Mg Tab) 500 mg PO QAM SANCHEZ Stop: 06/05/24 08:59 Last Admin: 06/03/24 08:18 Dose: 500 mg Enoxaparin Sodium (Enoxaparin Inj 40 Mg/0.4 Ml Syr) 40 mg SQ Q24H SANCHEZ Stop: 07/01/24 22:14 Last Admin: 06/02/24 21:30 Dose: 40 mg Escitalopram Oxalate (Escitalopram Oxalate 20 Mg Tab) 20 mg PO DAILY SANCHEZ Stop: 07/02/24 08:59 Last Admin: 06/03/24 08:19 Dose: 20 mg Methylprednisolone 40 mg/ (Syringe) 0.64 mls @ 1.5 mls/min IV Q8H SANCHEZ Stop: 07/02/24 05:59 Last Admin: 06/03/24 06:13 Dose: 1.5 mls/min Ceftriaxone Sodium (Rocephin) 2,000 mg in 50 mls @ 100 mls/hr IV Q24H SANCHEZ Stop: 06/07/24 08:14 Last Infusion: 06/03/24 08:49 Dose: Infused Mirtazapine (Mirtazapine Tab 15 Mg Tab) 7.5 mg PO HS [facility] Stop: 07/02/24 20:59 Last Admin: 06/02/24 21:30 Dose: 7.5 mg Nitroglycerin (Nitroglycerin Sl 0.4 Mg/Tab Tab) 0.4 mg SL Q5M PRN PRN Reason: Chest Pain Stop: 07/01/24 22:14 Polyethylene Glycol (Polyethylene (Miralax) 17 Gm Pack) 17 gm PO DAILY PRN PRN Reason: Constipation Stop: 07/01/24 22:14 Sodium Chloride (Sodium Chloride 0.65% Na Soln 45 Ml ([place])) 1 sprays NA Q2H [facility] Stop: 07/02/24 09:29 Last Admin: 06/03/24 08:17 Dose: 1 sprays PG Care Time/CCT Total # of Minutes Spent Total Time Spent with Patient: Total time spent is greater than 50% in coordination of care (as documented) at patient's floor/unit and/or counseling patient: Advanced Care Planning 46557 Advanced Care Planning 30 [place] [address] IN/OBS CONSULT LVL 4,60M Patient Type New History Expanded Problem Focused Exam Expanded Problem Focused Medical Decision Making Moderate Complexity Diagnoses Palliative care by specialist Z51.5 Counseling regarding advanced directives and goals of care Z71.89 HANNA (dyspnea on exertion) R06.09 POLST (Physician Orders for Life-Sustaining Treatment) Z78.9 Additional Codes Advanced Care Planning - 19545 Advanced Care Planning 30 Min: 58019 Advanced Care Planning 30 Min ([id number])
--- NOTE | 2024-06-03 15:56 | Hospitalist Progress Note ---
Date of Service June 03, 2024 Assessment & Plan (1) Acute exacerbation of chronic obstructive pulmonary disease: Plan: 84-year-old female with past medical history significant for COPD, chronic respiratory failure with hypoxia on 4 L oxygen at home, pulmonary hypertension, diastolic dysfunction, moderate mitral regurgitation, severe protein calorie malnutrition, GERD, congenital single kidney, osteoporosis, contracture of hand, thrombocytosis, lumbar spinal stenosis, history of lung cancer, history of splenectomy, history of CVA, history of CKD, hypertension, depression, who lives at home and nonambulatory status because of contractures in the legs and lately daughter is living with her who helps with her ambulation comes because of ongoing shortness of breath and cough. Acute exacerbation of COPD Acute on chronic hypercapnic respiratory failure H/O COPD on 4 to 4.5 L of oxygen --Chest x-ray mild homogeneous haziness in right lower lung. Prominent bilateral bronchovascular markings. --Biofire: Negative --Continue DuoNebs, budesonide, formoterol nebs -Titrate down IV Solu-Medrol as able --Also on Continue on ceftriaxone and azithromycin Titrate oxygen to keep saturations 88 to 92% Slowly improving Acute kidney injury Cr 1.2>>0.88 Monitor renal function Avoid nephrotoxic agents as able H/O Chronic diastolic CHF Moderate mitral regurgitation --ECHO: Moderate concentric LVH. EF > 70%. Trace mitral regurgitation. Mild tricuspid regurgitation. 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 Lung cancer S/p right upper lobectomy Palliative care consulted to address goals of care History of CVA On aspirin and statin Depression Lexapro and Remeron DVT Px: Lovenox SQ CODE STATUS Full code Disposition To be determined Admission and Anticipated Discharge Date Admission Date: June 01, 2024 Subjective Patient is seen and examined at bedside States feeling a lot better today No significant cough today Denies any dyspnea Also denies any chest pain, dysuria, hematuria Discussed with patient's family at bedside Review of Systems Review of Systems: All systems reviewed & are unremarkable except as noted in Subjective Physical Exam Physical Exam: Physical Exam: Vitals signs as noted above General Appearance:Moderately built and nourished, no apparent distress Head: normocephalic, Atraumatic Eyes: normal inspection, EOMI Neck: supple, Trachea midline Respiratory/Chest: Decreased breath sounds, CTA, No accessory muscle use Cardiovascular: S1, S2, No murmur Abdomen/GI:Soft, Non tender, Bowel sounds present Extremities/Musculoskeletal:normal inspection, no edema,+Chronic contractures Neurologic/Psych:AAOX3, grossly no focal neurological deficits Skin: normal color, warm,+Decubitus Ulcer Results & Data Results & Data Vital Signs (Past 12 Hours) Vital Signs Temp Pulse Pulse Resp BP BP Pulse Ox 06/03/24 15:17 36.8 C 91 H 20 167/75 H 97 06/03/24 14:51 80 06/03/24 11:51 36.8 C 93 H 20 165/64 H 95 06/03/24 08:15 06/03/24 08:00 36.6 C 77 16 170/50 H 95 06/03/24 07:02 79 06/03/24 03:59 36.9 C 91 H 19 152/77 H 95 O2 Del Method O2 Flow Rate 06/03/24 15:17 Nasal Cannula 5 06/03/24 14:51 06/03/24 11:51 Nasal Cannula 5 06/03/24 08:15 Nasal Cannula 5 06/03/24 08:00 Nasal Cannula 5 06/03/24 07:02 06/03/24 03:59 Nasal Cannula 5 Laboratory Results Short CBC 06/03/24 Range/Units 07:25 WBC 15.71 H (4.8-10.8) K/ul Hgb 11.2 L (12.0-16.0) g/dl Hct 34.0 L (37.0-47.0) % Plt Count 494 H (130-400) K/uL BMP 06/02/24 06/03/24 20:15 07:25 Sodium 134 L 136 Potassium 4.9 5.6 H Chloride 94 L 96 L Carbon Dioxide 35 H 38 H BUN 30 H 32 H Creatinine 1.22 H D 0.88 D Glucose 155 H 131 H Calcium 10.2 10.5 H
[2024-06-03] MEDS: methylPREDNISolone 40 MG in SYRINGE 0 ML IV SCH (21:30)
[2024-06-04] MEDS: LABETALOL HCL IV 5 MG/ML 20ML IV STA (00:16)
[2024-06-04 08:12] LABS: BUN Creatinine Ratio 39.6 (10-20); Calcium 10.2 mg/dl (8.6-10.3); Creatinine Clr Calc Pharmacy 38.1 ml/min; Potassium 4.7 mmol/L (3.5-5.1)
[2024-06-04] MEDS: predniSONE 20 MG TAB PO SCH (08:58)
[2024-06-04] MEDS: amLODIPine BESYLATE 5 MG TAB PO SCH (11:22)
[2024-06-04] MEDS: ADVANCED PROBIOTIC 625 MG CAPSULE PO SCH (11:22)
--- NOTE | 2024-06-04 13:00 | Palliative Care Progress Note ---
Date of Service June 04, 2024 Assessment & Plan (1) Palliative care by specialist: (2) Counseling regarding advanced directives and goals of care: (3) POLST (Physician Orders for Life-Sustaining Treatment): (4) HANNA (dyspnea on exertion): Plan Patient has exhibits current possession of decisional capacity based on the ability to convey understanding of personal PMHx, current medical condition, treatment options as well as the risks / benefits of those options, and ability to make decisions based on such knowledge. Hospital does not have written documentation of patient wishes concerning her chosen proxy for medical decisions. Per PA [id number], in absence of written documentation of patient wishes, pt's proxy for medical decisions would be her daughter Corinna. Pt does not require a proxy for medical decisions at this time. Pt had reportedly completed a LW many years ago and agrees to bring it to hospital on her next visit. Pt shared that her dtr Corinna is her chosen MDM proxy. Met with pt at bedside for 35min, discussed LW/AD and POLSt as well as outpt follow up. POLST: reviewed document with pt. She reinforced that she does desire DNR/DNI at this time. She shared that she would prefer to review form with her dtr Corinna prior to completing. Form left with pt at bedside. LW/AD: reinforced value of LW/Ad with pt and briefly reviewed blank form with her. She shared that her daughter is trying to locate previously completed form to present to hospital. Blank form reviewed and left with pt to review further with Corinna on her arrival. Also discussed engaging palliative foundation funded Conscious Dying Coaching with Rev Kassy Renee. I reviewed that Rev Renee offers assistance on non clinical issues, supporting patients as they consider, navigate and become clear on what is most important for their end of life. Rev Renee helps patients align how they are currently living with the vision they see for yourself at the end, then identify and set goals, along with action steps for yourself to fulfill that vision. The focus is on the 5 domains of life: Spiritual, emotional, physical, mental, and practical. Elda would like this engagement with Rev Renee and I have provided pt with Rev Renee's contact information. Patient and family asked that I share her name and phone with Rev Renee to contact, as it is sometimes hard for pt to make the call, fearing rejection. I reviewed that End of life coaching and planning begins with 10 structured sessions we like to call, the best three months. Based on 10 total meetings over a 3-4 month period. Average meeting time 60-90 minutes. 2 meetings per domain. Over a three month period, there is support for the family and patient to identify their vision, current reality and steps to be taken to implement life fulfillment and care wishes in the spiritual, emotional, mental, physical and practical domains of life. This service includes: Best Three Months End-of-Life Care Coaching and Planning with Family, Patient and Co-coordination with Medical/Hospice Care Providers. Pt is agreeable to this service, contact information shared with pt. 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 Admission and Anticipated Discharge Date Admission Date: June 01, 2024 Subjective Assessed pt at bedside, she was awake and alert and reports feeling "normal for me". Denies any pain, SOB or discomfort and shared that she does continue to feel her baseline level of HANNA. NAEON, NAD on 4l NC. No visitors present. Review of Systems Review of Systems: All systems reviewed & are unremarkable except as noted in Subjective Physical Exam Physical Exam: nsion Extremities- no pretibial edema, no erythema seen Skin- stage 1 decubitus ulcer in sacral and lumbar region Constitutional: well developed, well nourished and comfortable NAD ON 4l nc Eyes: PERRL, conjunctivae normal, anicteric sclerae ENMT: external ear and nose normal, oropharynx normal Neck: trachea midline, no thyromegaly Respiratory: normal respiratory effort Auscultation: + diminished lung sounds and + wheezes Cardiovascular: Rate/Rhythm: + irregularly irregular Extremities: normal capillary refill and + edema Gastrointestinal (Abdomen): normal bowel sounds, soft, nontender, no hepatosplenomegaly Neurologic: alert, oriented x 3; PERRL, no facial palsy; no dysarthria; moves extremities Results & Data Vital Signs (Past 12 Hours) Vital Signs Temp Pulse Pulse Resp BP Pulse Ox O2 Del Method 06/04/24 11:33 36.7 C 96 H 18 178/83 H 95 Nasal Cannula 02/06/25 08:01 36.6 C 69 24 181/80 H 95 Room Air 06/04/24 07:51 72 06/04/24 03:29 36.6 C 73 18 149/78 H 95 Nasal Cannula 06/04/24 01:05 Nasal Cannula O2 Flow Rate 06/04/24 11:33 06/04/24 08:01 06/04/24 07:51 06/04/24 03:29 3.5 06/04/24 01:05 3 Laboratory Results Abnormal lab results 06/04/24 Range/Units 07:11 Sodium 134 L (136-145) mmol/L Chloride 93 L (98-107) mmol/L Carbon Dioxide 37 H (21-32) mmol/L BUN 36 H (6-23) mg/dl BUN/Creatinine Ratio 39.6 H (10-20) Glucose 117 H (70-99(Fasting)) mg/dl Medications Administered Current Inpatient Medications Acetaminophen (Acetaminophen 325 Mg Tab) 650 mg PO Q4H PRN PRN Reason: Pain or Fever Stop: 07/01/24 22:14 Albuterol (Albut/Ipratrop 3mg/0.5mg Neb 3 Ml Vial) 3 ml NEB Q4H PRN; Protocol PRN Reason: Shortness Of Breath Or Wheezing Stop: 07/01/24 22:14 Amlodipine Besylate (Amlodipine Besylate 5 Mg Tab) 2.5 mg PO QAM [facility] Stop: 07/04/24 08:59 Last Admin: 06/04/24 11:22 Dose: 2.5 mg Aspirin (Aspirin 81 Mg Ectab) 81 mg PO DAILY [facility] Stop: 07/02/24 08:59 Last Admin: 06/04/24 08:58 Dose: 81 mg Atorvastatin Calcium (Atorvastatin 10 Mg Tab) 10 mg PO DAILY [facility] Stop: 07/02/24 08:59 Last Admin: 06/04/24 08:58 Dose: 10 mg Azithromycin (Azithromycin 250 Mg Tab) 500 mg PO QAM [facility] Stop: 06/05/24 08:59 Last Admin: 06/04/24 08:58 Dose: 500 mg Diclofenac Sodium (Diclofenac Sod 1% Gel 100 Gm Tube) 2 gm EXT BID PRN; Protocol PRN Reason: Pain Stop: 07/04/24 08:59 Enoxaparin Sodium (Enoxaparin Inj 40 Mg/0.4 Ml Syr) 40 mg SQ Q24H [facility] Stop: 07/01/24 22:14 Last Admin: 06/03/24 21:28 Dose: 40 mg Escitalopram Oxalate (Escitalopram Oxalate 20 Mg Tab) 20 mg PO DAILY [facility] Stop: 07/02/24 08:59 Last Admin: 06/04/24 08:58 Dose: 20 mg Ceftriaxone Sodium (Rocephin) 2,000 mg in 50 mls @ 100 mls/hr IV Q24H [facility] Stop: 06/07/24 08:14 Last Admin: 06/04/24 08:11 Dose: 100 mls/hr Labetalol HCl (Labetalol Hcl Iv 5 Mg/Ml 20ml) 10 mg IV Q6H PRN PRN Reason: Hypertension SBP>180orDBP>100 Stop: 07/04/24 08:35 Lactobacillus Acidophilus (Advanced Probiotic 625 Mg Capsule) 1,250 mg PO DAILY [facility] Stop: 07/04/24 10:59 Last Admin: 06/04/24 11:22 Dose: 1,250 mg Melatonin (Melatonin 3 Mg Tab) 3 mg PO HS PRN PRN Reason: Sleep Stop: 07/04/24 10:54 Mirtazapine (Mirtazapine Tab 15 Mg Tab) 7.5 mg PO HS [facility] Stop: 07/02/24 20:59 Last Admin: 06/03/24 21:31 Dose: 7.5 mg Nitroglycerin (Nitroglycerin Sl 0.4 Mg/Tab Tab) 0.4 mg SL Q5M PRN PRN Reason: Chest Pain Stop: 07/01/24 22:14 Polyethylene Glycol (Polyethylene (Miralax) 17 Gm Pack) 17 gm PO DAILY PRN PRN Reason: Constipation Stop: 07/01/24 22:14 Prednisone (Prednisone 20 Mg Tab) 20 mg PO DAILY [facility] Stop: 07/05/24 08:59 Sodium Chloride (Sodium Chloride 0.65% Na Soln 45 Ml ([place])) 1 sprays NA Q2H [facility] Stop: 07/02/24 09:29 Last Admin: 06/04/24 08:59 Dose: 1 sprays PG Care Time/CCT Total # of Minutes Spent Total Time Spent with Patient: Total time spent is greater than 50% in coordination of care (as documented) at patient's floor/unit and/or counseling patient: Advanced Care Planning 23390 Advanced Care Planning 30 Min C[place] [address] SUB INP/OBS CARE 05/23MIN Patient Type Established Medical Decision Making Low Complexity Diagnoses Palliative care by specialist Z51.5 Counseling regarding advanced directives and goals of care Z71.89 POLST (Physician Orders for Life-Sustaining Treatment) Z78.9 HANNA (dyspnea on exertion) R06.09 Additional Codes Advanced Care Planning - 47568 Advanced Care Planning 30 Min: 30151 Advanced Care Planning 30 Min ([id number])
--- NOTE | 2024-06-04 17:13 | Hospitalist Progress Note ---
Date of Service June 04, 2024 Assessment & Plan (1) Acute exacerbation of chronic obstructive pulmonary disease: Plan: 84-year-old female with past medical history significant for COPD, chronic respiratory failure with hypoxia on 4 L oxygen at home, pulmonary hypertension, diastolic dysfunction, moderate mitral regurgitation, severe protein calorie malnutrition, GERD, congenital single kidney, osteoporosis, contracture of hand, thrombocytosis, lumbar spinal stenosis, history of lung cancer, history of splenectomy, history of CVA, history of CKD, hypertension, depression, who lives at home and nonambulatory status because of contractures in the legs and lately daughter is living with her who helps with her ambulation comes because of ongoing shortness of breath and cough. Acute exacerbation of COPD Acute on chronic hypercapnic respiratory failure H/O COPD on 4 to 4.5 L of oxygen --Chest x-ray mild homogeneous haziness in right lower lung. Prominent bilateral bronchovascular markings. --Biofire: Negative --Continue DuoNebs, budesonide, formoterol nebs -Titrate down IV Solu-Medrol to prednisone --Also on Continue on ceftriaxone and azithromycin Titrate oxygen to keep saturations 88 to 92% Slowly improving Leukocytosis likely secondary to steroids Likely discharge in 1 to 2 days Acute kidney injury Cr 1.2>>0.9 Monitor renal function Avoid nephrotoxic agents as able Hypertensive urgency Likely due to steroids Started on amlodipine IV labetalol as needed Monitor blood pressure H/O Chronic diastolic CHF Moderate mitral regurgitation --ECHO: Moderate concentric LVH. EF > 70%. Trace mitral regurgitation. Mild tricuspid regurgitation. 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 Lung cancer S/p right upper lobectomy Palliative care consulted to address goals of care History of CVA On aspirin and statin Depression Lexapro and Remeron DVT Px: Lovenox SQ CODE STATUS Full code Disposition Home when able Admission and Anticipated Discharge Date Admission Date: June 01, 2024 Subjective Patient is seen and examined at bedside Feels anxious and reports poor sleep today Also had loose BM Discussed with patient's family at bedside Feels she is not ready for discharge today Minimal cough Denies any chest pain, dysuria, hematuria Review of Systems 2 Review of Systems: All systems reviewed & are unremarkable except as noted in Subjective Physical Exam Physical Exam: Physical Exam: Vitals signs as noted above General Appearance:Moderately built and nourished, no apparent distress Head: normocephalic, Atraumatic Eyes: normal inspection, EOMI Neck: supple, Trachea midline Respiratory/Chest: Decreased breath sounds, CTA, No accessory muscle use Cardiovascular: S1, S2, No murmur Abdomen/GI:Soft, Non tender, Bowel sounds present Extremities/Musculoskeletal:normal inspection, no edema,+Chronic contractures Neurologic/Psych:AAOX3, grossly no focal neurological deficits Skin: normal color, warm,+Decubitus Ulcer Results & Data Results & Data Vital Signs (Past 12 Hours) Vital Signs Temp Pulse Pulse Resp BP Pulse Ox O2 Del Method 06/04/24 16:17 36.9 C 90 16 178/90 H 96 Nasal Cannula 06/04/24 11:33 36.7 C 96 H 18 178/83 H 95 Nasal Cannula 06/04/24 08:01 36.6 C 69 24 181/80 H 95 Room Air 06/04/24 07:51 72 Laboratory Results [facility] 06/04/24 07:11 Sodium 134 L Potassium 4.7 Chloride 93 L Carbon Dioxide 37 H BUN 36 H Creatinine 0.91 Glucose 117 H Calcium 10.2
[2024-06-04] MEDS: DICLOFENAC SOD 1% GEL 100 GM TUBE EXT PRN (19:43)
[2024-06-04] MEDS: LABETALOL HCL IV 5 MG/ML 20ML IV PRN (23:31)
[2024-06-05] MEDS: MELATONIN 3 MG TAB PO PRN (01:47)
[2024-06-05 03:14] VITALS: RESP 16
[2024-06-05 09:19] LABS: Hematocrit (blood only) 36.6 % (37.0-47.0); Hemoglobin 11.9 g/dl (12.0-16.0); Mean Corpuscular Hemoglobin 28.2 pg (25.0-34.0); Mean Corpuscular Hgb Conc 32.5 g/dL (32.0-36.0); Mean Corpuscular Volume 86.7 fL (80.0-100.0); Mean Platelet Volume 10.5 fL (9.4-12.4); Platelet Count 494 K/uL (130-400); RDW Coefficient of Variation 14.9 % (11.5-14.5); RDW Standard Deviation 46.8 fL (36.4-46.3); Red Blood Count 4.22 M/uL (4.20-5.40); White Blood Count 13.25 K/ul (4.8-10.8)
[2024-06-05] MEDS: predniSONE 20 MG TAB PO SCH (09:52)
[2024-06-05 09:58] LABS: BUN Creatinine Ratio 36.8 (10-20); Calcium 9.8 mg/dl (8.6-10.3); Potassium 3.8 mmol/L (3.5-5.1)
[2024-06-05 11:46] VITALS: TEMP 98.1; O2SAT 93
--- NOTE | 2024-06-05 12:27 | Hospitalist Progress Note ---
Date of Service June 05, 2024 Assessment & Plan (1) Acute exacerbation of chronic obstructive pulmonary disease: Plan: 84-year-old female with past medical history significant for COPD, chronic respiratory failure with hypoxia on 4 L oxygen at home, pulmonary hypertension, diastolic dysfunction, moderate mitral regurgitation, severe protein calorie malnutrition, GERD, congenital single kidney, osteoporosis, contracture of hand, thrombocytosis, lumbar spinal stenosis, history of lung cancer, history of splenectomy, history of CVA, history of CKD, hypertension, depression, who lives at home and nonambulatory status because of contractures in the legs and lately daughter is living with her who helps with her ambulation comes because of ongoing shortness of breath and cough. Acute exacerbation of COPD Acute on chronic hypercapnic respiratory failure H/O COPD on 4 to 4.5 L of oxygen --Chest x-ray mild homogeneous haziness in right lower lung. Prominent bilateral bronchovascular markings. --Biofire: Negative --Continue DuoNebs, budesonide, formoterol nebs -Titrate down IV Solu-Medrol to prednisone --Also on Continue on ceftriaxone and azithromycin Titrate oxygen to keep saturations 88 to 92% Clinically improved Leukocytosis trended down Plan to discharge home today Acute kidney injury Cr 1.2>>0.9 Monitor renal function Avoid nephrotoxic agents as able Hypertensive urgency Likely due to steroids Started on amlodipine IV labetalol as needed Blood pressure better H/O Chronic diastolic CHF Moderate mitral regurgitation --ECHO: Moderate concentric LVH. EF > 70%. Trace mitral regurgitation. Mild tricuspid regurgitation. 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 Lung cancer S/p right upper lobectomy Palliative care consulted to address goals of care History of CVA On aspirin and statin Depression Lexapro and Remeron DVT Px: Lovenox SQ CODE STATUS Full code Disposition Home Admission and Anticipated Discharge Date Admission Date: June 01, 2024 Subjective Patient is seen and examined at bedside States feeling a lot better today Slept well overnight Cough much improved Denies any chest pain, dysuria, hematuria No other new complaints Prefers to be discharged home today Review of Systems Review of Systems: All systems reviewed & are unremarkable except as noted in Subjective Physical Exam Physical Exam: Physical Exam: Vitals signs as noted above General Appearance:Moderately built and nourished, no apparent distress Head: normocephalic, Atraumatic Eyes: normal inspection, EOMI Neck: supple, Trachea midline Respiratory/Chest: Decreased breath sounds, CTA, No accessory muscle use Cardiovascular: S1, S2, No murmur Abdomen/GI:Soft, Non tender, Bowel sounds present Extremities/Musculoskeletal:normal inspection, no edema,+Chronic contractures Neurologic/Psych:AAOX3, grossly no focal neurological deficits Skin: normal color, warm,+Decubitus Ulcer Results & Data Results & Data Vital Signs (Past 12 Hours) Vital Signs Temp Pulse Pulse Resp BP Pulse Ox O2 Del Method 06/05/24 11:45 36.7 C 74 16 132/69 93 Nasal Cannula 06/05/24 07:52 36.9 C 70 16 180/80 H 91 Nasal Cannula 06/05/24 07:26 90 06/05/24 03:11 36.5 C 65 16 169/84 H 95 Nasal Cannula O2 Flow Rate 06/05/24 11:45 2 06/05/24 07:52 2 06/05/24 07:26 06/05/24 03:11 2 Laboratory Results Short CBC 06/05/24 Range/Units 08:39 WBC 13.25 H (4.8-10.8) K/ul Hgb 11.9 L (12.0-16.0) g/dl Hct 36.6 L (37.0-47.0) % Plt Count 494 H (130-400) K/uL BMP 06/05/24 08:39 Sodium 140 Potassium 3.8 Chloride 100 Carbon Dioxide 33 H BUN 35 H Creatinine 0.95 Glucose 87 Calcium 9.8
--- NOTE | 2024-06-05 12:39 | Discharge Summary ---
Date of Service June 05, 2024 Admission HPI Per Admitting Provider 84-year-old female with past medical history significant for COPD, chronic respiratory failure with hypoxia on 4 L oxygen at home, pulmonary hypertension, diastolic dysfunction, moderate mitral regurgitation, severe protein calorie malnutrition, GERD, congenital single kidney, osteoporosis, contracture of hand, thrombocytosis, lumbar spinal stenosis, history of lung cancer, history of splenectomy, history of CVA, history of CKD, hypertension, depression, who lives at home and nonambulatory status because of contractures in the legs and lately daughter is living with her who helps with her ambulation comes because of ongoing shortness of breath and cough. Patient had this cough and shortness going on for last 2 months but for last 2 weeks getting progressively worse. She is bringing up thick brownish phlegm. Coughing spells mostly happening in the nighttime. Lately need to bump up the oxygen to 4.5 L. When she has to go to bathroom daughter helps her ambulate with a rollator walker and her oxygen s aturation dropping to 80% her heart rate going to 100s and it takes 10 minutes to recover. Because as she is not getting better she was brought to hospital today. Patient is weak and frail. Alert and oriented x 3. Denies any chest pain. Denies headache. Denies abdominal pain. Normal bowel and bladder movements as per daughter. Appetite is okay. She can swallow okay. No nausea. No runny nose or sore throat currently. Afebrile. Hemodynamics okay currently Past medical history. As mentioned above Past surgical history. EGD. EGD with biopsy. EGD with endoscopic ultrasound. Exploratory laparotomy. Injection of lumbosacral spine. Laparoscopic adrenalectomy. Diagnostic laparoscopy. Appendectomy. Removal of right kidney as a child. Small bowel resection. Total splenectomy. Bilateral cataract surgery. Cholecystectomy. Injection of lumbosacral spine. Right upper lobectomy. Small bowel endoscopy with removal of foreign body. Total abdominal hysterectomy with removal of tubes. Social history. Smoked 1 pack a day for 50 years. Not smoked since last 20 years as per daughter. Alcohol rarely. No drug use. Family history. Father had lung cancer. Mother had complications from bowel obstruction. Admission Exam Per Admitting Provider General- Not in acute distress Head- atraumatic Eyes- PERRL. Neck- supple, no JVD. Lungs- diminished b/l breath sounds, no obvious wheezing or crackles Heart- regular rhythm; no murmur, no gallop. Abdomen- normal bowel sounds, soft, nontender, no distension Extremities- no pretibial edema, no erythema seen Neuro- alert, oriented x 3; PERRL, no facial palsy; no dysarthria; moves extremities Skin- stage 1 decubitus ulcer in sacral and lumbar region Principal Diagnosis Acute exacerbation of COPD Acute on chronic hypercapnic respiratory failure Acute kidney injury Hypertension Urinary tract infection Discharge Data Allergies Allergy/AdvReac Type Severity Reaction Status Date / Time levofloxacin [From Levaquin] Allergy Severe airway Verified 10/19/21 20:02 edema Penicillins Allergy Unknown hives Unverified 10/27/19 09:19 procaine Allergy Unknown SWELLING Verified 10/27/19 09:19 codeine AdvReac Unknown GI UPSET Unverified 10/27/19 09:19 lidocaine AdvReac Unknown Verified 10/19/21 20:03 Consultations 06/01/24 19:13 ED Decision to Admit Stat 06/03/24 09:14 Consult Palliative Care Routine Ordered Studies Laboratory Results WBC 13.25 K/ul (4.8-10.8) H 06/05/24 08:39 RBC 4.22 M/uL (4.20-5.40) 06/05/24 08:39 Hgb 11.9 g/dl (12.0-16.0) L 06/05/24 08:39 Hct 36.6 % (37.0-47.0) L 06/05/24 08:39 MCV 86.7 fL (80.0-100.0) 06/05/24 08:39 MCH 28.2 pg (25.0-34.0) 06/05/24 08:39 MCHC 32.5 g/dL (32.0-36.0) 06/05/24 08:39 RDW Std Deviation 46.8 fL (36.4-46.3) H 06/05/24 08:39 RDW Coeff of Lora 14.9 % (11.5-14.5) H 06/05/24 08:39 Plt Count 494 K/uL (130-400) H 06/05/24 08:39 MPV 10.5 fL (9.4-12.4) 06/05/24 08:39 Immature Gran % (Auto) 0.6 % 06/03/24 07:25 Neut % (Auto) 81.8 % 06/03/24 07:25 Lymph % (Auto) 14.0 % 06/03/24 07:25 [facility] [place] % (Auto) 3.4 % 06/03/24 07:25 Eos % (Auto) 0.1 % 06/03/24 07:25 Baso % (Auto) 0.1 % 06/03/24 07: Neut # (Auto) 12.85 K/uL (1.40-6.50) H 06/03/24 07:25 Lymph # (Auto) 2.20 K/uL (1.20-3.40) 06/03/24 07:25 [facility] [place] # (Auto) 0.53 K/uL (0.11-0.59) 06/03/24 07:25 Eos # (Auto) 0.01 K/uL (0.00-0.50) 06/03/24 07: Baso # (Auto) 0.02 K/uL (0.00-0.20) 06/03/24 07:25 Immature Gran # (Auto) 0.10 K/uL (0.01-0.20) 06/03/24 07:25 PT 10.2 Seconds (9.0-12.0) 06/01/24 19:14 INR 0.9 (0.9-1.1) 06/01/24 19:14 APTT 34 Seconds (21-31) H 06/01/24 19:14 PTT Ratio 1.3 06/01/24 19:14 VBG pH 7.38 (7.36-7.41) 06/01/24 20:25 VBG pCO2 70 mmHg (38-50) H 06/01/24 20:25 VBG pO2 39 mmHg 06/01/24 20:25 VBG HCO3 41 mmol/L 06/01/24 20:25 VBG O2 Saturation 70.0 % 06/01/24 20:25 VBG Base Excess 13.0 mEq/L 06/01/24 20:25 Sodium 140 mmol/L (136-145) 06/05/24 08:39 Potassium 3.8 mmol/L (3.5-5.1) 06/05/24 08:39 Chloride 100 mmol/L (98-107) 06/05/24 08:39 Carbon Dioxide 33 mmol/L (21-32) H 06/05/24 08:39 Anion Gap 7 (3-11) 06/05/24 08:39 BUN 35 mg/dl (6-23) H 06/05/24 08:39 Creatinine 0.95 mg/dl (0.6-1.2) 06/05/24 08:39 Est Cr Clr Drug Dosing 36.0 ml/min 06/05/24 08:39 eGFR 59.08 06/05/24 08:39 BUN/Creatinine Ratio 36.8 (10-20) H 06/05/24 08:39 Glucose 87 mg/dl (70-99(Fasting)) 06/05/24 08:39 Calcium 9.8 mg/dl (8.6-10.3) 06/05/24 08:39 Magnesium 2.3 mg/dl (1.7-2.4) 06/02/24 05:23 Total Bilirubin 0.4 mg/dl (0.2-1.0) 06/01/24 17:50 AST 16 U/L (13-39) 06/01/24 17:50 ALT 10 U/L (7-52) 06/01/24 17:50 Alkaline Phosphatase 97 U/L (34-104) 06/01/24 17:50 Troponin I High Sens 5.6 pg/ml (0-14) 06/01/24 17:50 Total Protein 7.6 gm/dl (6.0-8.3) 06/01/24 17:50 Albumin 3.9 gm/dl (3.4-5.0) 06/01/24 17:50 Globulin 3.7 gm/dl (2.5-4.0) 06/01/24 17:50 Albumin/Globulin Ratio 1.1 (0.9-2) 06/01/24 17:50 Urine Color Yellow 06/01/24 23:00 Urine Appearance Cloudy (Clear) A 06/01/24 23:00 Urine pH 6.5 (4.5-7.5) 06/01/24 23:00 Ur Specific [place] 1.019 (1.000-1.030) 06/01/24 23:00 Urine Protein Trace (Negative) H 06/01/24 23:00 Urine Glucose (UA) Negative (Negative) 06/01/24 23:00 Urine Ketones Trace (Negative) H 06/01/24 23:00 Urine Blood Negative (Negative) 06/01/24 23:00 Urine Nitrite Positive (Negative) A 06/01/24 23:00 Urine Bilirubin Negative (Negative) 06/01/24 23:00 Urine Urobilinogen Negative (Negative) 06/01/24 23:00 Ur Leukocyte Esterase 2+ (Negative) H 06/01/24 23:00 Urine WBC (Auto) 11-20 /hpf (0-5) H 06/01/24 23:00 Urine RBC (Auto) 0-2 /hpf (0-2) 06/01/24 23:00 U Hyaline Cast (Auto) 0-2 /lpf (0-2) 06/01/24 23:00 U Epithel Cells (Auto) 0-2 /hpf (0-2) 06/01/24 23:00 Urine Bacteria (Auto) 4+ (None Seen) H 06/01/24 23:00 Adenovirus (PCR) Not Detected (NotDetected) 06/01/24 17:50 B. pertussis DNA (PCR) Not Detected (NotDetected) 06/01/24 17:50 B.parapertussis DNA PCR Not Detected (NotDetected) 06/01/24 17:50 C. pneumoniae DNA (PCR) Not Detected (NotDetected) 06/01/24 17:50 Coronavirus OC43 (PCR) Not Detected (NotDetected) 06/01/24 17:50 Coronavirus HKU1 (PCR) Not Detected (NotDetected) 06/01/24 17:50 Coronavirus 229E (PCR) Not Detected (NotDetected) 06/01/24 17:50 SARS-CoV-2 (PCR) Not Detected (NotDetected) 06/01/24 17:50 Coronavirus NL63 (PCR) Not Detected (NotDetected) 06/01/24 17:50 Human Metapneumovir PCR Not Detected (NotDetected) 06/01/24 17:50 Influenza Type A (PCR) Not Detected (NotDetected) 06/01/24 17:50 Influenza Type B (PCR) Not Detected (NotDetected) 06/01/24 17:50 M. pneumoniae (PCR) Not Detected (NotDetected) 06/01/24 17:50 Parainfluenza 1 (PCR) Not Detected (NotDetected) 06/01/24 17:50 Parainfluenza 2 (PCR) Not Detected (NotDetected) 06/01/24 17:50 Parainfluenza 3 (PCR) Not Detected (NotDetected) 06/01/24 17:50 Parainfluenza 4 (PCR) Not Detected (NotDetected) 06/01/24 17:50 RSV (PCR) Not Detected (NotDetected) 06/01/24 17:50 Entero/Rhino (PCR) Not Detected (NotDetected) 06/01/24 17:50 Impressions Chest X-Ray 06/01/24 17:43 EXAM: XR chest 1V portable CLINICAL HISTORY: Dyspnea. TECHNIQUE: An X-ray image of the chest is obtained in AP projection. COMPARISON: CR dated 10/25/2021. FINDINGS: Pulmonary Parenchyma: Prominent bilateral bronchovascular markings. A mild inhomogenous haziness is noted in the right lower zone Veiling of the left costophrenic angle. No pulmonary nodules are identified. No evidence of pleural effusion or pleural thickening. Heart and Mediastinum: Heart size and shape are normal. No mediastinal widening or masses. No hilar or mediastinal lymphadenopathy. Bony Thorax: Scoliosis of the thoracic spine to the left side. Arthritic changes of the left glenohumeral and acromioclavicular joints. Soft Tissues: Soft tissues overlying the chest wall are unremarkable. IMPRESSION: 1. Prominent bilateral bronchovascular markings. These could probably represent early/mild inflammatory/infectious etiology. 2. A mild inhomogenous haziness is noted in the right lower zone suggesting a possible developing infiltrate, advise clinical correlation and follow-up. 3. Further evaluation with CT is recommended if clinically warranted. Electronically signed by Clarissa Mena 06-01-2024 7:49 PM Hospital Course (1) Acute exacerbation of chronic obstructive pulmonary disease: 84-year-old female with past medical history significant for COPD, chronic respiratory failure with hypoxia on 4 L oxygen at home, pulmonary hypertension, diastolic dysfunction, moderate mitral regurgitation, severe protein calorie malnutrition, GERD, congenital single kidney, osteoporosis, contracture of hand, thrombocytosis, lumbar spinal stenosis, history of lung cancer, history of splenectomy, history of CVA, history of CKD, hypertension, depression, who lives at home and nonambulatory status because of contractures in the legs and lately daughter is living with her who helps with her ambulation comes because of ongoing shortness of breath and cough. Acute exacerbation of COPD Acute on chronic hypercapnic respiratory failure H/O COPD on 4 to 4.5 L of oxygen --Chest x-ray mild homogeneous haziness in right lower lung. Prominent bilateral bronchovascular markings. --Biofire: Negative --Continue DuoNebs, budesonide, formoterol nebs -Titrate down IV Solu-Medrol to prednisone --Also on Continue on ceftriaxone and azithromycin Titrate oxygen to keep saturations 88 to 92% Clinically improved Leukocytosis trended down Plan to discharge home today Acute kidney injury Cr 1.2>>0.9 Monitor renal function Avoid nephrotoxic agents as able Urinary tract infection--POA Urine culture growing E. coli Received Rocephin while hospitalized Hypertensive urgency Likely due to steroids Started on amlodipine IV labetalol as needed Blood pressure better H/O Chronic diastolic CHF Moderate mitral regurgitation --ECHO: Moderate concentric LVH. EF > 70%. Trace mitral regurgitation. Mild tricuspid regurgitation. 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 Lung cancer S/p right upper lobectomy Palliative care consulted to address goals of care History of CVA On aspirin and statin Depression Lexapro and Remeron DVT Px: Lovenox SQ CODE STATUS Full code Disposition Home Total Time Total Time Spent Total Time Spent (In Minutes): 54 minutes Discharge Plan Discharge Items Patient Disposition: Home - Self-Care Reason For Visit: COPD EX Discharge Diagnosis: Acute exacerbation of COPD Acute on chronic hypercapnic respiratory failure Acute kidney injury Hypertension Urinary tract infection Activity: Per Instructions section Exercise/Sports: Gradually increase as tolerated Non-emergency contact: Primary Care Provider Call non-emergency contact if: you have any medication questions, your symptoms worsen, your pain is concerning for you and you have a fever Follow-up/Referrals: Ron Ortega MD [Primary Care Provider] - (Date & Time 06/09/2024 11:00 AM Provider: Ron Ortega MD General Internal Medicine [facility] ) Diet: Heart Healthy and Low Potassium (2gm) Addtl Attending Provider Instructions: Follow-up with your primary care physician on 06/09/2024 11:00 AM -- Complete the antibiotic Omnicef, prednisone course as prescribed. Start taking Omnicef--antibiotic from 06/06/2024 Prednisone tapering course Starting prednisone 20 mg daily for 2 days, then take 10 mg daily for 2 days and stop -- Monitor your blood pressure regularly at home. Discuss with your physician for further adjustment of medications as needed Seek immediate medical attention if your symptoms reoccur or worsen Please take all medications as instructed on discharge list below. Please call if you have any questions or problems. You can reach a [facility] hospitalist on duty at [facility] 24 hours a day by calling [phone] Pending Studies at Discharge: No Stand-Alone Forms: My [facility], Smoking Cessation Medications and DC Order Prescriptions: New amlodipine [Norvasc] 5 mg Tablet 2.5 mg PO QAM Qty: 30 0RF Advanced Probiotic 625 mg (10 billion cell) Capsule 1 cap PO DAILY Qty: 7 0RF prednisone 10 mg tablet 10 mg PO DIRECTED Qty: 6 0RF Rx Instructions: Starting prednisone 20 mg daily for 2 days, then take 10 mg daily for 2 days and stop cefdinir 300 mg capsule 300 mg PO BID Qty: 4 0RF Continued atorvastatin 10 mg tablet 10 mg PO DAILY albuterol sulfate 1.25 mg/3 mL solution for nebulization 1.25 mg continuous nebulization Q6H PRN (Reason: Shortness Of Breath Or Wheezing) escitalopram oxalate 20 mg tablet 20 mg PO DAILY mirtazapine 7.5 mg tablet 7.5 mg PO HS Trelegy Ellipta 100-62.5-25 mcg blister with device 1 inh INHALATION DAILY aspirin [Aspir-81] 81 mg Tablet,Delayed Release (Dr/Ec) 81 mg PO DAILY PreserVision AREDS 4,296 mcg-226 mg-90 mg Capsule 1 cap PO BID Align (B.infantis) 4 mg Capsule 4 mg PO DAILY Glucosamine-Chondroitin Complx [id number] mg Tablet 2 tab PO DAILY Discharge Orders: Discharge Order (Routine); Ordered 06/05/24 Ordered By: Dominik Darnell Admission Data Admit Date/Time: 06/01/24 20:23 Attending Provider: Dominik Darnell Admit Provider: Stoney Rivas Primary Care Provider: Ron Ortega Other Providers: Stoney Rivas; Snow Rodriguez
[2024-06-05 13:19] VITALS: BP 139/76; PULSE 108
== END 2024-06-05 17:19 | disposition home or self-care (01) | DRG 190 ==
LOC: ED 17:34 → SUATTDRO 20:23 → 2N 20:23

== ENCOUNTER 2024-07-27 17:21 | Inpatient (IN) ==
[2024-07-27 17:53] LABS: Basophils # (auto) 0.07 K/uL (0.00-0.20); Basophils % (auto) 0.3 %; Eosinophils # (auto) 0.09 K/uL (0.00-0.50); Eosinophils % (auto) 0.4 %; Hematocrit (blood only) 41.6 % (37.0-47.0); Hemoglobin 13.3 g/dl (12.0-16.0); Immature Granulocytes # (auto) 0.12 K/uL (0.01-0.20); Immature Granulocytes % (auto) 0.5 %; Lymphocytes # (auto) 4.25 K/uL (1.20-3.40); Lymphocytes % (auto) 18.7 %; Mean Corpuscular Hemoglobin 29.3 pg (25.0-34.0); Mean Corpuscular Volume 91.6 fL (80.0-100.0); Mean Platelet Volume 10.9 fL (9.4-12.4); Monocytes # (auto) 1.11 K/uL (0.11-0.59); Monocytes % (auto) 4.9 %; Neutrophils # (auto) 17.04 K/uL (1.40-6.50); Neutrophils % (auto) 75.2 %; Platelet Count 421 K/uL (130-400); RDW Coefficient of Variation 14.3 % (11.5-14.5); RDW Standard Deviation 48.4 fL (36.4-46.3); Red Blood Count 4.54 M/uL (4.20-5.40); White Blood Count 22.68 K/ul (4.8-10.8)
--- NOTE | 2024-07-27 18:04 | Emergency Department Note ---
Impression & Plan Respiratory distress, COPD exacerbation, Respiratory acidosis, Hypoxia, Leukocytosis, Elevated troponin ED Provider Note NAME: VILMA PALMER AGE: 84 SEX: F : 1940 ARRIVES VIA: Ambulance INFORMANT: [Patient][daughter] ED PROVIDER(S): [Lenny Dunn MD] CHIEF COMPLAINT: Short of breath HISTORY OF PRESENT ILLNESS: The patient is an 84-year-old female with a history of COPD. She has had a week of increasing difficulty breathing that markedly worsened today. She was on the toilet and was having a difficult time catching her breath. She was wheezing, sweating and was pale. She seemed in distress. On the way here, she was given a DuoNeb with some improvement. As per nursing staff, the patient's O2 saturation was in the 70s, she required a significant amount of O2 to raise the oxygen level above 90%. The patient has not had fever, no increased cough. No sick contacts. She states that she was recently in the hospital for a COPD flare similar to today. Of note, the patient does not want to be intubated at any cost. She will undergo CPR for short time if her heart were to stop but does not want any type of prolonged resuscitation. PMHx/PSHx/Social Hx: See Below PHYSICAL EXAM: GENERAL: Patient is in moderate respiratory distress. Thin and frail. HEENT: No acute trauma, normocephalic atraumatic, mucous membranes moist, no nasal congestion. NECK: No stridor, no adenopathy, no meningismus, trachea is midline. LUNGS: Wheezing bilaterally with diminished breath sounds bilaterally. Accessory muscle use noted. Moderate respiratory distress. Speaks in very short sentences. HEART: Without murmurs gallops or rubs, regular rate and rhythm. Heart tones are quite difficult to hear given the overriding lung sounds. ABDOMEN: Soft, nontender, no peritonitis. EXTREMITIES: No cyanosis, full range of motion of all the joints without pain or difficulty. NEUROLOGIC: Oriented x 3, no acute motor or sensory deficits, no focal weakness. SKIN: No jaundice, no diaphoresis. DIFFERENTIAL DIAGNOSIS: Pneumonia, bronchitis, COPD flare, viral illness, CHF, PE, among others. EMERGENCY DEPARTMENT PROCEDURES: MEDICAL DECISION MAKING: There is a significant leukocytosis at 22,000, this could be consistent with infection or the stress of her presentation. There was a normal hemoglobin. Platelet count slightly elevated at 421. No concerning coagulopathy. VBG did show a respiratory acidosis. No renal failure or significant electrolyte abnormality. No worrisome liver enzyme elevation. BNP was not elevated making CHF and fluid overload less likely. ECG showed a sinus tachycardia, no ST elevation. Cardiac enzyme testing is slightly elevated, this could be consistent with cardiac injury or just mismatch from her hypoxia and dyspnea. Respiratory bio fire was negative. Chest x-ray showed some chronic change and some parenchymal congestion but no focal pneumonia. No pneumothorax. On exam, the patient appeared quite short of breath, she was in respiratory distress. The patient was aggressively managed. She received a 1 hour DuoNeb. I did attempt BiPAP however, the patient ultimately refused this intervention. The patient was given 1 L of IV saline, she received IV Solu-Medrol to help with bronchospasm. She was given IV ceftriaxone as antibiotic coverage. The patient is adamant that she is not to be intubated. She is refusing BiPAP for now. She understands that she is in need of hospitalization and is agreeable to some minimal intervention/care. I did speak with the patient as well as her daughter. I did talk with case management. Admission is clearly warranted. The on-call hospitalist was consulted. Of note, the patient does seem slightly improved since receiving the 1 hour nebulizer treatment. In short, the patient appears to be suffering from a flare of COPD, she likely has some sort of infectious process as the trigger. Antibiotics are indicated. Prior/Outside records/notes reviewed: Today's EMS notes describing her presentation and transport to this hospital. ECG per my interpretation: Indication was shortness of breath. The ECG shows a sinus tachycardia with a rate of 109. There is an old anterior infarct. No obvious acute ST elevation. No PVCs. QTc was 465. Continuous Cardiac Monitoring per my interpretation: An order was placed for continuous cardiac monitoring. The monitor shows a rate of 88 with normal sinus rhythm. Imaging/x-ray results per my interpretation: Chest x-ray shows congestion of both lung bases but no focal pneumonia. No pneumothorax. No CHF. Chronic Medical/Social conditions affecting care: Advanced age, history of COPD. Care/Management discussed with: Case management, the on-call hospitalist. Level of care consideration(s): After review of the information above and other included data: --I believe the patient requires escalation of care to admission Critical Care Note: I have personally spent 56 minutes of critical care time in the direct management of this patient. This includes bedside care, interpretation of diagnostic studies, and testing, discussion with consultants, patient, and family members, and other required patient management activities. This 56 minutes is in excess of all separately billable procedures. DISPOSITION: Admission Past Med/Surg History Problem List Elevated troponin (Acute) Leukocytosis (Acute) Hypoxia (Acute) Respiratory acidosis (Acute) COPD exacerbation (Acute) Respiratory distress (Acute) Acute on chronic respiratory failure with hypoxia and hypercapnia Acute on chronic respiratory failure with hypoxemia POLST (Physician Orders for Life-Sustaining Treatment) HANNA (dyspnea on exertion) Counseling regarding advanced directives and goals of care Palliative care by specialist Acute exacerbation of chronic obstructive pulmonary disease (Acute) Acute and chronic respiratory failure with hypercapnia (Acute) Acute metabolic encephalopathy Cachexia Acute and chronic respiratory failure SBO (small bowel obstruction) (Acute) Abdominal pain, acute, epigastric (Acute) Vomiting (Acute) Impacted cerumen of both ears No family history of adverse response to anesthesia Arthritis Left hip pain Discharge planning issues Depression (Chronic) Chronic prescription opiate use (Chronic) Gastroesophageal reflux disease (Chronic 10/13/10) CKD (chronic kidney disease), stage III (Chronic) Pulmonary hypertension (Chronic) 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) "s/p resection, chemo and radiation 10 yrs ago" Lumbar spinal stenosis (Chronic) Osteoporosis (Chronic) Hyponatremia (Acute) H/O splenectomy (Chronic) S/P cholecystectomy (Chronic) Hx of appendectomy (Chronic) Medical History (Updated 07/27/24 @ 20:36 by Lenny Dunn MD) Spasms of the hands or feet Hypercalcemia Hyperkalemia Hypercarbia Chronic respiratory failure with hypoxia, on home O2 therapy Encephalopathy Hyperlipidemia Stroke Bronchitis COPD (chronic obstructive pulmonary disease) Chronic pain syndrome (10/13/10) Surgical History History of tonsillectomy and adenoidectomy History of bladder surgery History of adrenal surgery History of hysterectomy History of lung surgery Family History Mother Glaucoma Father Cancer Lung cancer Other Allergies No family history of bleeding disorder Social History Smoking Status: Never smoker Tobacco Type: Cigarettes Cigarettes Per Day: 15; Second Hand Exposure: No; Do You Dip or Chew Tobacco: No; Hx Alcohol Use: Yes Alcohol type: wine Hx Substance Use: Yes Last Used Substance: Days (ago) Substance Use Type Other:: uses marijuana couples times a month with a vape Preferred Language: [place] Leonean Communication Ability: Effective Communication Ability Comment: Confused Visual Impairment: No Limitations Hearing Ability: Normal Stock Driver Required: No Beliefs That Will Affect Care: None Current Living Situation: Family Current Living Situation Comment: Lives with her daughter Corinna current occupational status: retired Feels Safe at Home: Yes Assistive Devices: Hospital Bed, Oxygen - Continuous, Wheelchair and Other Allergies Allergies Allergy/AdvReac Type Severity Reaction Status Date / Time levofloxacin [From Levaquin] Allergy Severe airway Verified 10/19/21 20:02 edema Penicillins Allergy Unknown hives Unverified 10/27/19 09:19 procaine Allergy Unknown SWELLING Verified 10/27/19 09:19 codeine AdvReac Unknown GI UPSET Unverified 10/27/19 09:19 lidocaine AdvReac Unknown Verified 10/19/21 20:03 Home Meds Home Medications Medication Instructions Recorded Confirmed Bifidobacterium infantis 4 mg 4 mg PO DAILY 06/01/24 07/27/24 capsule (Align (B.infantis)) albuterol sulfate 1.25 mg/3 mL 1.25 mg continuous nebulization 06/01/24 07/27/24 solution for nebulization Q6H PRN Shortness Of Breath Or Wheezing aspirin 81 mg tablet,delayed 81 mg PO DAILY 06/01/24 07/27/24 release atorvastatin 10 mg tablet 10 mg PO DAILY 06/01/24 07/27/24 escitalopram oxalate 20 mg tablet 20 mg PO DAILY 06/01/24 07/27/24 fluticasone fur. 100 mcg-umeclid 1 inh inhalation DAILY 06/01/24 07/27/24 62.5 mcg-vilant 25 mcg inhalat.powder (Trelegy Ellipta) dsbkuiyjltc-ppgtvyqoxjk-lto C-cori 2 tab PO DAILY 06/01/24 07/27/24 250 mg-200 mg-30 mg-2.5 mg tablet (Glucosamine-Chondroitin Complex) mirtazapine 7.5 mg tablet 7.5 mg PO HS 06/01/24 07/27/24 vitamins A,C,O-brvm-odstbg 4,296 1 cap PO BID 06/01/24 07/27/24 mcg-226 mg-90 mg capsule (PreserVision AREDS) Previous Rx's Medication Instructions Recorded amlodipine 5 mg tablet (Norvasc) 2.5 mg (1/2 x 5 mg) PO QAM #30 tabs 06/05/24 Results & Data (ED) Vital Signs Vital Signs - 24 hr 07/27/24 17:26 07/27/24 17:26 07/27/24 17:47 Temperature 36.8 C Temperature Source Oral Pulse Rate 105 H 88 Pulse Rate [Finger] Pulse Rhythm Regular Respiratory Rate 36 H 34 H Respiratory Effort / Characteristics Labored Grunting Labored Respiratory Depth Respiratory Pattern Irregular Irregular Blood Pressure 149/96 H Blood Pressure [Left Arm] Blood Pressure Mean 113 Blood Pressure Mean [Left Arm] Blood Pressure Position Lying Pulse Oximetry 93 70 L Oxygen Delivery Method Nasal Cannula Room Air Oxygen Flow Rate Fraction of Inspired Oxygen Sepsis Recent Fever Within 48 Hours No Sepsis New/Unexplained Change in Mental Status No Sepsis Action Taken by Nursing No Action Required Pulse Oximetry Post Tiitration 07/27/24 18:11 07/27/24 18:17 07/27/24 19:00 Temperature Temperature Source Pulse Rate 107 H 109 H Pulse Rate [Finger] 109 H Pulse Rhythm Respiratory Rate 37 H 38 H Respiratory Effort / Characteristics Spontaneous Labored Short of Breath Spontaneous Respiratory Depth Normal Respiratory Pattern Tachypnea Blood Pressure Blood Pressure [Left Arm] Blood Pressure Mean Blood Pressure Mean [Left Arm] Blood Pressure Position Pulse Oximetry 91 91 Oxygen Delivery Method Nasal Cannula Oxygen Flow Rate 6 Fraction of Inspired Oxygen 60 Sepsis Recent Fever Within 48 Hours Sepsis New/Unexplained Change in Mental Status Sepsis Action Taken by Nursing Pulse Oximetry Post Tiitration 07/27/24 19:29 07/27/24 20:20 Temperature Temperature Source Pulse Rate Pulse Rate [Finger] 108 H Pulse Rhythm Respiratory Rate 36 H Respiratory Effort / Characteristics Respiratory Depth Respiratory Pattern Blood Pressure Blood Pressure [Left Arm] 88/64 L Blood Pressure Mean Blood Pressure Mean [Left Arm] 72 Blood Pressure Position Pulse Oximetry 93 Oxygen Delivery Method BiPAP BiPAP Oxygen Flow Rate Fraction of Inspired Oxygen Sepsis Recent Fever Within 48 Hours Sepsis New/Unexplained Change in Mental Status Sepsis Action Taken by Nursing Pulse Oximetry Post Tiitration 93 Home Medications Current Medication List: was personally reviewed by me Laboratory Data Attestation: I reviewed the patient's lab results. 07/27/24 17:32 07/27/24 17:32 Lab Results 07/27/24 07/27/24 07/27/24 Range/Units 17:32 17:34 19:09 WBC 22.68 H (4.8-10.8) K/ul RBC 4.54 (4.20-5.40) M/uL Hgb 13.3 (12.0-16.0) g/dl Hct 41.6 (37.0-47.0) % MCV 91.6 (80.0-100.0) fL MCH 29.3 (25.0-34.0) pg MCHC 32.0 (32.0-36.0) g/dL RDW Std Deviation 48.4 H (36.4-46.3) fL RDW Coeff of Lora 14.3 (11.5-14.5) % Plt Count 421 H (130-400) K/uL MPV 10.9 (9.4-12.4) fL Immature Gran % (Auto) 0.5 % Neut % (Auto) 75.2 % Lymph % (Auto) 18.7 % [place] % (Auto) 4.9 % Eos % (Auto) 0.4 % Baso % (Auto) 0.3 % Neut # (Auto) 17.04 H (1.40-6.50) K/uL Lymph # (Auto) 4.25 H (1.20-3.40) K/uL [place] # (Auto) 1.11 H (0.11-0.59) K/uL Eos # (Auto) 0.09 (0.00-0.50) K/uL Baso # (Auto) 0.07 (0.00-0.20) K/uL Immature Gran # (Auto) 0.12 (0.01-0.20) K/uL PT Cancelled 10.4 INR Cancelled 1.0 APTT Cancelled 34 H PTT Ratio Cancelled 1.3 VBG pH 7.12 L (7.36-7.41) VBG pCO2 96 H (38-50) mmHg VBG pO2 41 mmHg VBG HCO3 31 mmol/L VBG O2 Saturation 62.5 % VBG Base Excess -1.0 mEq/L Sodium 138 (136-145) mmol/L Potassium 4.0 (3.5-5.1) mmol/L Chloride 100 (98-107) mmol/L Carbon Dioxide 30 (21-32) mmol/L Anion Gap 8 (3-11) BUN 23 (6-23) mg/dl Creatinine 1.07 (0.6-1.2) mg/dl Est Cr Clr Drug Dosing 28.1 ml/min eGFR 51.22 BUN/Creatinine Ratio 21.5 H (10-20) Glucose 265 H (70-99(Fasting)) mg/dl Lactate Cancelled Calcium 9.6 (8.6-10.3) mg/dl Magnesium 2.1 (1.7-2.4) mg/dl Total Bilirubin 0.5 (0.2-1.0) mg/dl AST 23 (13-39) U/L ALT 16 (7-52) U/L Alkaline Phosphatase 120 H (34-104) U/L Troponin I High Sens 21.3 H (0-14) pg/ml B-Natriuretic Peptide 76 (0-100) pg/ml Total Protein 7.6 (6.0-8.3) gm/dl Albumin 4.1 (3.4-5.0) gm/dl Globulin 3.5 (2.5-4.0) gm/dl Albumin/Globulin Ratio 1.2 (0.9-2) Adenovirus (PCR) Not Detected (NotDetected) B. pertussis DNA (PCR) Not Detected (NotDetected) B.parapertussis DNA PCR Not Detected (NotDetected) C. pneumoniae DNA (PCR) Not Detected (NotDetected) Coronavirus OC43 (PCR) Not Detected (NotDetected) Coronavirus HKU1 (PCR) Not Detected (NotDetected) Coronavirus 229E (PCR) Not Detected (NotDetected) SARS-CoV-2 (PCR) Not Detected (NotDetected) Coronavirus NL63 (PCR) Not Detected (NotDetected) Human Metapneumovir PCR Not Detected (NotDetected) Influenza Type A (PCR) Not Detected (NotDetected) Influenza Type B (PCR) Not Detected (NotDetected) M. pneumoniae (PCR) Not Detected (NotDetected) Parainfluenza 1 (PCR) Not Detected (NotDetected) Parainfluenza 2 (PCR) Not Detected (NotDetected) Parainfluenza 3 (PCR) Not Detected (NotDetected) Parainfluenza 4 (PCR) Not Detected (NotDetected) RSV (PCR) Not Detected (NotDetected) Entero/Rhino (PCR) Not Detected (NotDetected) 07/27/24 Range/Units 19:11 WBC (4.8-10.8) K/ul RBC (4.20-5.40) M/uL Hgb (12.0-16.0) g/dl Hct (37.0-47.0) % MCV (80.0-100.0) fL MCH (25.0-34.0) pg MCHC (32.0-36.0) g/dL RDW Std Deviation (36.4-46.3) fL RDW Coeff of Lora (11.5-14.5) % Plt Count (130-400) K/uL MPV (9.4-12.4) fL Immature Gran % (Auto) % Neut % (Auto) % Lymph % (Auto) % [place] % (Auto) % Eos % (Auto) % Baso % (Auto) % Neut # (Auto) (1.40-6.50) K/uL Lymph # (Auto) (1.20-3.40) K/uL [place] # (Auto) (0.11-0.59) K/uL Eos # (Auto) (0.00-0.50) K/uL Baso # (Auto) (0.00-0.20) K/uL Immature Gran # (Auto) (0.01-0.20) K/uL PT INR APTT PTT Ratio VBG pH (7.36-7.41) VBG pCO2 (38-50) mmHg VBG pO2 mmHg VBG HCO3 mmol/L VBG O2 Saturation % VBG Base Excess mEq/L Sodium (136-145) mmol/L Potassium (3.5-5.1) mmol/L Chloride (98-107) mmol/L Carbon Dioxide (21-32) mmol/L Anion Gap (3-11) BUN (6-23) mg/dl Creatinine (0.6-1.2) mg/dl Est Cr Clr Drug Dosing ml/min eGFR BUN/Creatinine Ratio (10-20) Glucose (70-99(Fasting)) mg/dl Lactate Calcium (8.6-10.3) mg/dl Magnesium (1.7-2.4) mg/dl Total Bilirubin (0.2-1.0) mg/dl AST (13-39) U/L ALT (7-52) U/L Alkaline Phosphatase (34-104) U/L Troponin I High Sens 65.5 H* D (0-14) pg/ml B-Natriuretic Peptide (0-100) pg/ml Total Protein (6.0-8.3) gm/dl Albumin (3.4-5.0) gm/dl Globulin (2.5-4.0) gm/dl Albumin/Globulin Ratio (0.9-2) Adenovirus (PCR) (NotDetected) B. pertussis DNA (PCR) (NotDetected) B.parapertussis DNA PCR (NotDetected) C. pneumoniae DNA (PCR) (NotDetected) Coronavirus OC43 (PCR) (NotDetected) Coronavirus HKU1 (PCR) (NotDetected) Coronavirus 229E (PCR) (NotDetected) SARS-CoV-2 (PCR) (NotDetected) Coronavirus NL63 (PCR) (NotDetected) Human Metapneumovir PCR (NotDetected) Influenza Type A (PCR) (NotDetected) Influenza Type B (PCR) (NotDetected) M. pneumoniae (PCR) (NotDetected) Parainfluenza 1 (PCR) (NotDetected) Parainfluenza 2 (PCR) (NotDetected) Parainfluenza 3 (PCR) (NotDetected) Parainfluenza 4 (PCR) (NotDetected) RSV (PCR) (NotDetected) Entero/Rhino (PCR) (NotDetected) Administered Medications Sodium Chloride (Nss) 1,000 mls @ 80 mls/hr IV .[id number] [facility] Stop: 07/28/24 19:59 Last Admin: 07/27/24 20:05 Dose: 80 mls/hr Documented By: SHB Discontinued Medications Albuterol (Albut/Ipratrop 3mg/0.5mg Neb 3 Ml Vial) 12 ml NEB ONE ONE; Protocol Stop: 07/27/24 17:54 Last Admin: 07/27/24 18:16 Dose: 12 ml Documented By: JAYLON Ceftriaxone Sodium (Rocephin) 2,000 mg in 50 mls @ 100 mls/hr IV NOW STA Stop: 07/27/24 18:23 Last Infusion: 07/27/24 19:18 Dose: Infused Documented By: Admin: 07/27/24 18:14 Dose: 100 mls/hr Documented By: BEST Lorazepam (Lorazepam 2 Mg/1 Ml Vial) 0.25 mg IV NOW STA Stop: 07/27/24 19:03 Last Admin: 07/27/24 19:17 Dose: 0.25 mg Documented By: HOWARD Methylprednisolone (Methylprednisolone 125 Mg/2 Ml Vial) 80 mg IV NOW STA Stop: 07/27/24 17:55 Last Admin: 07/27/24 18:13 Dose: 80 mg Documented By: BEST Imaging Data Radiologist's Impression: Chest X-Ray 07/27/24 17:26 EXAM: Radiograph of the Chest 1 View INDICATION: Chest pain TECHNIQUE: Frontal view of the chest. COMPARISON: 06/01/2024 FINDINGS: Lungs and pleural spaces: Stable spiculated right hilar scarring and generalized fibrotic changes. No pleural effusion or pneumothorax. Heart: Shape and configuration within normal limits allowing for technique. Mediastinum: Normal contour. Bones/joints: Degenerative changes noted in the scoliotic spine. No acute osseous abnormality noted. Soft tissues: No abnormality noted. No radiopaque foreign body noted. Upper abdomen: No abnormality noted. IMPRESSION: Stable chronic changes. No acute disease. ACT 112: N/A Electronically signed by Zabrina Aguirre 07-27-2024 6:03 PM Discharge Plan Visit Data Chief Complaint: Shortness of Breath/Dyspnea Stated Complaint: Anxiety ED Provider: Lenny Dunn Discharge Problem: Respiratory distress, COPD exacerbation, Respiratory acidosis, Hypoxia, Leukocytosis, Elevated troponin Patient Disposition: Admitted As Inpatient Condition: Serious Forms Stand Alone Forms: My [facility] Prescriptions Prescriptions: No Action atorvastatin 10 mg tablet 10 mg PO DAILY albuterol sulfate 1.25 mg/3 mL solution for nebulization 1.25 mg continuous nebulization Q6H PRN (Reason: Shortness Of Breath Or Wheezing) escitalopram oxalate 20 mg tablet 20 mg PO DAILY mirtazapine 7.5 mg tablet 7.5 mg PO HS Trelegy Ellipta 100-62.5-25 mcg blister with device 1 inh INHALATION DAILY aspirin 81 mg Tablet,Delayed Release (Dr/Ec) 81 mg PO DAILY PreserVision AREDS 4,296 mcg-226 mg-90 mg Capsule 1 cap PO BID Align (B.infantis) 4 mg Capsule 4 mg PO DAILY Glucosamine-Chondroitin Complx [id number] mg Tablet 2 tab PO DAILY amlodipine [Norvasc] 5 mg Tablet 2.5 mg PO QAM Qty: 30 0RF Referrals Referrals: Ron Ortega MD [Primary Care Provider] - Discharge Problem: Leukocytosis Qualifiers: Leukocytosis type: unspecified Qualified Code(s): D72.829 - Elevated white blood cell count, unspecified
[2024-07-27 18:06] LABS: Albumin Globulin Ratio 1.2 (0.9-2); Albumin Level 4.1 gm/dl (3.4-5.0); BUN Creatinine Ratio 21.5 (10-20); Bilirubin,Total 0.5 mg/dl (0.2-1.0); Calcium 9.6 mg/dl (8.6-10.3); Creatinine Clr Calc Pharmacy 28.1 ml/min; Globulin 3.5 gm/dl (2.5-4.0); Total Protein 7.6 gm/dl (6.0-8.3)
[2024-07-27 18:12] LABS: Troponin I High Sensitivity 21.3 pg/ml (0-14)
[2024-07-27] MEDS: methylPREDNISolone 125 MG/2 ML VIAL IV STA (18:13)
[2024-07-27] MEDS: cefTRIAXone SODIUM 2,000 MG/50 ML BAG IV STA (18:14)
[2024-07-27] MEDS: ALBUT/IPRATROP 3MG/0.5MG NEB 3 ML VIAL NEB ONE (18:16)
[2024-07-27 18:24] LABS: Magnesium 2.1 mg/dl (1.7-2.4)
[2024-07-27 18:34] LABS: Adenovirus PCR Not Detected (NotDetected); Bordetella parapertussis PCR Not Detected (NotDetected); Bordetella pertussis PCR Not Detected (NotDetected); Chlamydia pneumoniae PCR Not Detected (NotDetected); Coronavirus 229E PCR Not Detected (NotDetected); Coronavirus CoV-2 (COVID19)PCR Not Detected (NotDetected); Coronavirus HKU1 PCR Not Detected (NotDetected); Coronavirus NL63 PCR Not Detected (NotDetected); Coronavirus OC43PCR Not Detected (NotDetected); Human Metapneumovirus PCR Not Detected (NotDetected); Influenza A PCR Not Detected (NotDetected); Influenza B PCR Not Detected (NotDetected); Mycoplasma pneumoniae PCR Not Detected (NotDetected); Parainfluenza Virus 1 PCR Not Detected (NotDetected); Parainfluenza Virus 2 PCR Not Detected (NotDetected); Parainfluenza Virus 3 PCR Not Detected (NotDetected); Parainfluenza Virus 4 PCR Not Detected (NotDetected); Respiratory Syncytial VirusPCR Not Detected (NotDetected); Rhinovirus/Enterovirus PCR Not Detected (NotDetected)
--- NOTE | 2024-07-27 19:02 | History & Physical Report ---
Date of Service July 27, 2024 Assessment & Plan (1) Acute exacerbation of chronic obstructive pulmonary disease: (2) Acute on chronic respiratory failure with hypoxia and hypercapnia: Plan This is an 84-year-old female with past medical history significant for COPD, chronic respiratory failure with hypoxia on 3.5 L oxygen at home, pulmonary hypertension, diastolic dysfunction, moderate mitral regurgitation, severe protein calorie malnutrition, GERD, congenital single kidney, osteoporosis, contracture of hand, thrombocytosis, lumbar spinal stenosis, history of lung cancer, history of splenectomy, history of CVA, history of CKD, hypertension, depression who presents to the ED 2/2 SOB. #Acute on Chronic Hypoxic and hypercapnic respiratory failure #Acute exacerbation of COPD #Acute respiratory acidosis admit to PCU discussion held at bedside with daughter and pt and she confirms DNR/DNI she is willing to trial bipap if we can control anxiety as typically she can't handle due to anxiousness will give IV 0.25mg ativan now and again trial bipap given pts increased work of breathing and evidence of accessory muscle use If pt unable to tolerate bipap daughter aware as no further resources to offer at this point other than controlling sx Daughter and pt agree will trial bipap, IV solumedrol 40mg q8hr, scheduled duoneb, muccinex, ISP Doxycycline BID, will start IV for now while on bipap #Anxiety, possible Panic attack received IV lorazepam 0.25mg in ED, still feeling anxious but able to keep bipap on will give additional dose of IV 0.25mg reassess as needed #Mild Dehydration clinical pt appears dry, will give gentle fluids #H/O Chronic diastolic CHF #Moderate mitral regurgitation --ECHO: Moderate concentric LVH. EF > 70%. Trace mitral regurgitation. Mild tricuspid regurgitation. Right ventricular systolic pressure elevated at 30 to 40 mmHg --monitor for volume overload Currently no signs of volume overload #H/O Hypercalcemia #History of hyperparathyroidism Monitor calcium levels #History of lumbar spinal stenosis #Scoliosis Bilateral lower EXTR contractures #History of splenectomy Chronic thrombocytosis #Lung cancer S/p right upper lobectomy Palliative care consulted to address goals of care #History of CVA On aspirin and statin #Depression Lexapro and Remeron #DVT Px: Heparin SQ DNR/DNI PCP: Shannon Dispo: admit to PCU Pt was seen and examined in collaboration with Dr. Rose, please see addendum I spent a total of 61 minutes coordinating, documenting and providing care for this patient excluding time spent in the performance of separately billed services or time spent by another provider/QHP. History of Present Illness Chief Complaint: Acute onset of SOB. Primary Care Provider: Ron Ortega MD This is an 84-year-old female with past medical history significant for COPD, chronic respiratory failure with hypoxia on 3.5 L oxygen at home, pulmonary hypertension, diastolic dysfunction, moderate mitral regurgitation, severe protein calorie malnutrition, GERD, congenital single kidney, osteoporosis, contracture of hand, thrombocytosis, lumbar spinal stenosis, history of lung cancer, history of splenectomy, history of CVA, history of CKD, hypertension, depression who presents to the ED 2/2 SOB. Daughter is at bedside who helps elicit history. Hx also obtained from external chart review. Daughter provides most of history due to pt inability to breath appropriately. Daughter states she feels this is anxiety driven. She reports trying to get off the toilet and took out her daughters knee and they both fell. After that she became acutely SOB. Prior to today she was in her normal state of health. She had been doing well since her last discharge. She did have one episode of diarrhea today. She currently is receiving a nebulizer, but doesn't feel it is any better. She states the bipap makes her anxious. At baseline she is on 3.5Lof O2 at baseline with 92%. Daughter reports she has been having high blood pressure. She has been noticing 140s systolic with occasional 180s. She denies any recent f/c/s, dizziness, chest pain, n/v, abd pain. In ED pt was visibly in respiratory distress. CXR w/o acute abnormality. She did have a leukocytosis of 22k, initial trop of 21 and a normal resp biofire. Pt was requiring 6L via NC. Bipap was ordered, but pt refused due to feeling anxious. She was agreeable to trialing it after receiving ativan. She receiving IV solumedrol and ceftriaxone. Allergies Allergy/AdvReac Type Severity Reaction Status Date / Time levofloxacin [From Levaquin] Allergy Severe airway Verified 10/19/21 20:02 edema Penicillins Allergy Unknown hives Unverified 10/27/19 09:19 procaine Allergy Unknown SWELLING Verified 10/27/19 09:19 codeine AdvReac Unknown GI UPSET Unverified 10/27/19 09:19 lidocaine AdvReac Unknown Verified 10/19/21 20:03 Home Medications Medication Instructions Recorded Confirmed Type Bifidobacterium infantis 4 mg 4 mg PO DAILY 06/01/24 07/27/24 History capsule (Align (B.infantis)) albuterol sulfate 1.25 mg/3 mL 1.25 mg continuous nebulization 06/01/24 07/27/24 History solution for nebulization Q6H PRN Shortness Of Breath Or Wheezing aspirin 81 mg tablet,delayed 81 mg PO DAILY 06/01/24 07/27/24 History release atorvastatin 10 mg tablet 10 mg PO DAILY 06/01/24 07/27/24 History escitalopram oxalate 20 mg tablet 20 mg PO DAILY 06/01/24 07/27/24 History fluticasone fur. 100 mcg-umeclid 1 inh inhalation DAILY 06/01/24 07/27/24 History 62.5 mcg-vilant 25 mcg inhalat.powder (Trelegy Ellipta) oqcbviaxnfo-vejqvhexkut-jjq C-cori 2 tab PO DAILY 06/01/24 07/27/24 History 250 mg-200 mg-30 mg-2.5 mg tablet (Glucosamine-Chondroitin Complex) mirtazapine 7.5 mg tablet 7.5 mg PO HS 06/01/24 07/27/24 History vitamins A,C,L-cbqo-cmkyhy 4,296 1 cap PO BID 06/01/24 07/27/24 History mcg-226 mg-90 mg capsule (PreserVision AREDS) amlodipine 5 mg tablet (Norvasc) 2.5 mg (1/2 x 5 mg) PO QAM #30 tabs 06/05/24 07/27/24 Rx Past Med/Surg History Problem List Acute on chronic respiratory failure with hypoxia and hypercapnia Acute on chronic respiratory failure with hypoxemia POLST (Physician Orders for Life-Sustaining Treatment) HANNA (dyspnea on exertion) Counseling regarding advanced directives and goals of care Palliative care by specialist Acute exacerbation of chronic obstructive pulmonary disease (Acute) Acute and chronic respiratory failure with hypercapnia (Acute) Acute metabolic encephalopathy Cachexia Acute and chronic respiratory failure SBO (small bowel obstruction) (Acute) Abdominal pain, acute, epigastric (Acute) Vomiting (Acute) Impacted cerumen of both ears No family history of adverse response to anesthesia Arthritis Left hip pain Discharge planning issues Depression (Chronic) Chronic prescription opiate use (Chronic) Gastroesophageal reflux disease (Chronic 10/13/10) CKD (chronic kidney disease), stage III (Chronic) Pulmonary hypertension (Chronic) 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) "s/p resection, chemo and radiation 10 yrs ago" Lumbar spinal stenosis (Chronic) Osteoporosis (Chronic) Hyponatremia (Acute) H/O splenectomy (Chronic) S/P cholecystectomy (Chronic) Hx of appendectomy (Chronic) Medical History (Updated 07/27/24 @ 19:52 by Alejandrina Scanlon PA-C) Spasms of the hands or feet Hypercalcemia Hyperkalemia Hypercarbia Chronic respiratory failure with hypoxia, on home O2 therapy Encephalopathy Hyperlipidemia Stroke Bronchitis COPD (chronic obstructive pulmonary disease) Chronic pain syndrome (10/13/10) Surgical History History of tonsillectomy and adenoidectomy History of bladder surgery History of adrenal surgery History of hysterectomy History of lung surgery Family History Mother Glaucoma Father Cancer Lung cancer Other Allergies No family history of bleeding disorder Social History Smoking Status: Never smoker Tobacco Type: Cigarettes Cigarettes Per Day: 15; Second Hand Exposure: No; Do You Dip or Chew Tobacco: No; Hx Alcohol Use: Yes Alcohol type: wine Hx Substance Use: Yes Last Used Substance: Days (ago) Substance Use Type Other:: uses marijuana couples times a month with a vape Preferred Language: Kinyarwanda Communication Ability: Effective Communication Ability Comment: Confused Visual Impairment: No Limitations Hearing Ability: Normal Exceptional Needs Teacher Required: No Beliefs That Will Affect Care: None Current Living Situation: Family Current Living Situation Comment: Lives with her daughter Corinna current occupational status: retired Feels Safe at Home: Yes Assistive Devices: Hospital Bed, Oxygen - Continuous, Wheelchair and Other Review of Systems Review of Systems: All systems reviewed & are unremarkable except as noted in HPI & below Physical Exam Physical Exam: please refer to Dr. Rose addendum for physical exam findings. Results & Data Results & Data Vital Signs (Past 12 Hours) Vital Signs Temp Pulse Pulse Resp BP Pulse Ox O2 Del Method 07/27/24 18:17 109 H 37 H 91 Nasal Cannula 07/27/24 18:11 107 H 07/27/24 17:47 88 34 H 70 L Room Air 07/27/24 17:26 36.8 C 105 H 36 H 149/96 H 93 Nasal Cannula O2 Flow Rate 07/27/24 18:17 6 07/27/24 18:11 07/27/24 17:47 07/27/24 17:26 Laboratory Results I have independently reviewed and interpreted patient's admitting labs including CBC, CMP, bnp, resp biofire, mag and troponin. Diagnostic Findings Chest X-Ray 07/27/24 17:26 EXAM: Radiograph of the Chest 1 View INDICATION: Chest pain TECHNIQUE: Frontal view of the chest. COMPARISON: 06/01/2024 FINDINGS: Lungs and pleural spaces: Stable spiculated right hilar scarring and generalized fibrotic changes. No pleural effusion or pneumothorax. Heart: Shape and configuration within normal limits allowing for technique. Mediastinum: Normal contour. Bones/joints: Degenerative changes noted in the scoliotic spine. No acute osseous abnormality noted. Soft tissues: No abnormality noted. No radiopaque foreign body noted. Upper abdomen: No abnormality noted. IMPRESSION: Stable chronic changes. No acute disease. ACT 112: N/A Electronically signed by Zabrina Aguirre 07-27-2024 6:03 PM Medications Administered Medication List Discontinued Medications Albuterol (Albut/Ipratrop 3mg/0.5mg Neb 3 Ml Vial) 12 ml NEB ONE ONE; Protocol Stop: 07/27/24 17:54 Last Admin: 07/27/24 18:16 Dose: 12 ml Documented By: JAYLON Ceftriaxone Sodium (Rocephin) 2,000 mg in 50 mls @ 100 mls/hr IV NOW STA Stop: 07/27/24 18:23 Last Admin: 07/27/24 18:14 Dose: 100 mls/hr Documented By: SQUAXIN Methylprednisolone (Methylprednisolone 125 Mg/2 Ml Vial) 80 mg IV NOW STA Stop: 07/27/24 17:55 Last Admin: 07/27/24 18:13 Dose: 80 mg Documented By: SQUAXIN ECG Additional Comments: I have independently reviewed and interpreted patient's admitting EKG which revealed: ST, 109 bpm, no st or t wave changes COVID-19 Results Results COVID-19 Adm Lab Results: RBC 4.54 M/uL (4.20-5.40) 07/27/24 WBC 22.68 K/ul (4.8-10.8) H 07/27/24 Hgb 13.3 g/dl (12.0-16.0) 07/27/24 Hct 41.6 % (37.0-47.0) 07/27/24 Plt Count 421 K/uL (130-400) H 07/27/24 Neutrophils (%) (Auto) 75.2 % 07/27/24 Lymphocytes (%) (Auto) 18.7 % 07/27/24 Monocytes # (Auto) 1.11 K/uL (0.11-0.59) H 07/27/24 Eosinophils # (Auto) 0.09 K/uL (0.00-0.50) 07/27/24 Immature Granulocyte % (Auto) 0.5 % 07/27/24 Neutrophils # (Auto) 17.04 K/uL (1.40-6.50) H 07/27/24 Lymphocytes # (Auto) 4.25 K/uL (1.20-3.40) H 07/27/24 Monocytes # (Auto) 1.11 K/uL (0.11-0.59) H 07/27/24 Eosinophils # (Auto) 0.09 K/uL (0.00-0.50) 07/27/24 Basophils # (Auto) 0.07 K/uL (0.00-0.20) 07/27/24 Immature Granulocyte # (Auto) 0.12 K/uL (0.01-0.20) 5 Na 138 mmol/L (136-145) 07/27/24 K 4.0 mmol/L (3.5-5.1) 07/27/24 Cl 100 mmol/L (98-107) 07/27/24 CO2 30 mmol/L (21-32) 07/27/24 Anion Gap 8 (3-11) 07/27/24 BUN 23 mg/dl (6-23) 07/27/24 Creatinine 1.07 mg/dl (0.6-1.2) 07/27/24 BUN/Creatinine Ratio 21.5 (10-20) H 07/27/24 Glucose Level 265 mg/dl (70-99(Fasting)) H 07/27/24 Ca 9.6 mg/dl (8.6-10.3) 07/27/24 Total Bilirubin 0.5 mg/dl (0.2-1.0) 07/27/24 AST/SGOT 23 U/L (13-39) 07/27/24 ALT/SGPT 16 U/L (7-52) 07/27/24 Alkaline Phosphatase 120 U/L (34-104) H 07/27/24 Total Protein 7.6 gm/dl (6.0-8.3) 07/27/24 Albumin 4.1 gm/dl (3.4-5.0) 07/27/24 Globulin 3.5 gm/dl (2.5-4.0) 07/27/24 Albumin/Globulin Ratio 1.2 (0.9-2) 07/27/24 PTT 34 Seconds (21-31) H 07/27/24 INR 1.0 (0.9-1.1) 07/27/24 Adenovirus (PCR) Not Detected (NotDetected) 07/27/24 B. parapertussis DNA (PCR) Not Detected (NotDetected) 06/29 05/23 B. pertussis DNA (PCR) Not Detected (NotDetected) 07/27/24 C. pneumoniae DNA (PCR) Not Detected (NotDetected) 5 Coronavirus Type OC43 (PCR) Not Detected (NotDetected) Coronavirus Type HKU1 (PCR) Not Detected (NotDetected) Coronavirus Type 229E (PCR) Not Detected (NotDetected) COVID-19 PCR Not Detected (NotDetected) 07/27/24 Coronavirus Type NL63 (PCR) Not Detected (NotDetected) Human Metapneumovirus (PCR) Not Detected (NotDetected) Influenza Virus Type A (PCR) Not Detected (NotDetected) Influenza Virus Type B (PCR) Not Detected (NotDetected) M. pneumoniae (PCR) Not Detected (NotDetected) 07/27/24 Parainfluenza Type 1 (PCR) Not Detected (NotDetected) 06/29 05/23 Parainfluenza Type 2 (PCR) Not Detected (NotDetected) 06/29 05/23 Parainfluenza Type 3 (PCR) Not Detected (NotDetected) 06/29 05/23 Parainfluenza Type 4 (PCR) Not Detected (NotDetected) 06/29 05/23 RSV (PCR) Not Detected (NotDetected) 07/27/24 Enterovirus/Rhinovirus (PCR) Not Detected (NotDetected) Chest X-Ray 07/27/24 Code Status & VTE Plan Code Status I have independently reviewed and interpreted patient's admitting EKG which revealed: Supervising Physician Co-Signing Physician Notes I have seen and discussed the case with the collaborating advanced practitioner. I agree with the above H&P. I have reviewed and confirmed the patients medical history, the findings on physical examination, and the patients diagnosis and treatment plan with Capo ROLAND and agree with the information documented. Ms. Jcaob is an 84 year old woman with COPD and chronic hypoxic resp failure admitted for acute on chronic hypoxic resp failure iso COPD exacerbation . Patient at baseline health until today when nearly falling off toilet into daughter. Reportedly there was notable anxiety around event however, SOB and distress noted. GENERAL APPEARANCE: AxOx4, lethargic woman with resp distress HEENT: NC, AT. MMM. EOMI, clear conjunctiva, oropharynx clear. NECK: Supple without lymphadenopathy. No stiffness or restricted ROM. HEART: tachycardic LUNGS: coarse breathsounds bilaterally, no wheezing, shallow breaths with poor effort, however, paradoxical breathing noted ABDOMEN: Soft, nontender, nondistended with good bowel sounds heard. BACK: No CVAT, no obvious deformity. EXTREMITIES: Without cyanosis, clubbing or edema. NEUROLOGICAL: Grossly nonfocal. Alert and oriented, BLE contractures noted Skin: Warm and dry, scattered ecchymosis on BLE : #Acute on chronic hypoxic hypercapnic resp failure #Acute resp acidosis #COPD exacerbation no concern for superimposed pna at this time, however, will cover for atypicals patient refusing BiPAP--however, agreeable to trial with ativan continue bipap and encourage compliance continue nebs around the clock solumedrol q 8 hours #hyperglycemia A1C in am ssi for now #dehydration suspect dehydration iso RBC at 13 and baseline recently around 11 will add gentle IVF to account for insensible losses and npo I spent a total of 35 minutes coordinating, documenting, and providing care for this patient excluding time spent in the performance of separately billed services. All of the aforementioned completed outside of collaborating with the assigned advanced practitioner for a full treatment plan. I have reviewed the advanced practitioner's documentation, and I agree with, and take responsibility for the plan of care
[2024-07-27] MEDS: LORazepam 2 MG/1 ML VIAL IV STA ×2 (19:17→20:31)
[2024-07-27 19:48] LABS: HCO3 VBG 31 mmol/L; Oxygen Saturation VBG 62.5 %; PCO2 VBG 96 mmHg (38-50); PO2 VBG 41 mmHg; pH VBG 7.12 (7.36-7.41)
[2024-07-27] MEDS ORDERED: GLUCOSE 10 TAB/TUBE PO PRN (19:53)
[2024-07-27] MEDS ORDERED: GLUCOSE 40% GEL 15 GM TUBE PO PRN (19:53)
[2024-07-27] MEDS ORDERED: GLUCAGON FOR INJ 1 MG VIAL SQ PRN (19:53)
[2024-07-27] MEDS ORDERED: DEXTROSE 50% 50 ML SYRINGE IV PRN (19:53)
[2024-07-27] MEDS ORDERED: CARBOHYDRATES FOR HYPOGLYCEMIA PO PRN (19:53)
[2024-07-27 20:01] LABS: Partial Thromboplastin Ratio 1.3; Partial Thromboplastin Time 34 Seconds (21-31); Prothrombin Time 10.4 Seconds (9.0-12.0)
[2024-07-27] MEDS: SODIUM CHLORIDE 0.9% 1,000 ML IV SCH (20:05)
[2024-07-27] MEDS: SODIUM CHLORIDE 0.9% 500 ML IV ONE (20:39)
[2024-07-27] MEDS ORDERED: POLYETHYLENE (MIRALAX) 17 GM PACK PO PRN (21:18)
[2024-07-27] MEDS ORDERED: ALUMINUM/MAGNESIUM SUSP 30 ML UDC PO PRN (21:18)
[2024-07-27] MEDS ORDERED: NON-FORMULARY MEDICATION (Vitamins A,C,E-Zinc-Copper [Preservision Areds] 4,296 mcg-226 mg PO SCH (21:18)
[2024-07-27] MEDS ORDERED: ONDANSETRON INJ 2 MG/ML 2 ML VIAL IV PRN (21:18)
[2024-07-27] MEDS: INSULIN ASPART PER UNIT CHARGE SC SCH (22:26)
[2024-07-27] MEDS: guaiFENesin 600 MG TABCR PO SCH (22:27)
[2024-07-27] MEDS: MIRTAZAPINE TAB 15 MG TAB PO SCH (22:27)
[2024-07-27] MEDS: TROLAMINE SALICYLATE 10% CRM 255 APPLN/85 GM TUBE EXT SCH (22:27)
[2024-07-27] MEDS: HEPARIN SOD 5,000 UNIT/0.5 ML VIAL SQ SCH (23:04)
[2024-07-27] MEDS: DOXYCYCLINE HYCLATE 100 MG in DEXTROSE 5% MINI-B 100 ML IV SCH (23:04)
[2024-07-28] MEDS: ALBUT/IPRATROP 3MG/0.5MG NEB 3 ML VIAL NEB SCH ×3 (01:19→15:22)
[2024-07-28] MEDS: LORazepam 2 MG/1 ML VIAL IV STA (02:30)
--- OUTSIDE RECORDS SUMMARY | 2024-07-28 03:47 | External Medical Summary ---
Author Name Unknown Address Unknown Organization [id number] [address] [place] [id number] Laboratory Report Ordering Provider Test Date Status ETHAN SEGOVIA 07/07/2024 09:40:00 Final Observation Date Value Abnormality Reference (Units ) Status SYNC LEUKOCYTES IN BLOOD BY AUTOMATED COUNT 07/07/2024 09:40:00 8.26 4.00-10.80 (K/uL) Final Segs 07/07/2024 09:40:00 53.6 40.0-75.0 (%) Final Lymphs % 07/07/2024 09:40:00 28.6 18.0-42.0 (%) Final Monos 07/07/2024 09:40:00 10.0 1.0-11.0 (%) Final Eosinophils 07/07/2024 09:40:00 7.0 Above high normal 0.0-6.0 (%) Final Basos 07/07/2024 09:40:00 0.8 0.0-2.0 (%) Final Absolute Segs 07/07/2024 09:40:00 4.42 1.80-7.70 (K/uL) Final Lymphs, absolute 07/07/2024 09:40:00 2.36 1.00-4.80 (K/ul) Final Monos, Abs 07/07/2024 09:40:00 0.83 0.00-1.10 (K/uL) Final Eos, Abs 07/07/2024 09:40:00 0.58 0.00-0.70 (K/uL) Final Basos, Abs 07/07/2024 09:40:00 0.07 0.00-0.20 (K/uL) Final Performing Location [facility] [address] [place] [id number]
--- OUTSIDE RECORDS SUMMARY | 2024-07-28 03:47 | External Medical Summary ---
Author Name Unknown Address Unknown Organization [id number] [address] [place] [id number] Laboratory Report Ordering Provider Test Date Status ETHAN SEGOVIA 07/07/2024 09:40:00 Final Observation Date Value Abnormality Reference (Units ) Status WBC, Total 07/07/2024 09:40:00 8.26 4.00-10.8 0 (K/uL) Final RBC 07/07/2024 09:40:00 4.01 3.85-5.15 (M/uL) Final Hemoglobin 07/07/2024 09:40:00 11.6 Below low normal 12 .0-15.3 (g/dL) Final HCT 07/07/2024 09:40:00 37.1 36.0-45.2 (%) Final MCV 07/07/2024 09:40:00 92.5 81.5-97.5 (fL) Final MCH 07/07/2024 09:40:00 28.9 27.0-34.0 (pg) Final MCHC 07/07/2024 09:40:00 31.3 32.0-36.0 (g/dL) Final RDW 07/07/2024 09:40:00 15.4 11.5-15.5 (%) Final Platelets 07/07/2024 09:40:00 496 Above high normal 14 0-400 (K/uL) Final MPV 07/07/2024 09:40:00 10.8 6.6-11.1 ( fL) Final Performing Location [facility] [address] [place] [id number]
--- OUTSIDE RECORDS SUMMARY | 2024-07-28 03:47 | External Medical Summary | Summary of Care ---
Author Name Unknown Organization [facility] Address [address] [place] [address] Phone [phone] Care Team Providers Care Bite Block Maker Name Role Phone Ron Ortega MD Primary Care Provider + Reason for Referral * Ancillary Services (Within 30 days (routine)) - Authorized Specialty Diagnoses / Procedures Referred By Contac t Referred To Contact General Ophthalmologist Diagnoses Hyperparathyroidism (HCC) Ron Ortega MD [address] [place] [address] Phone: tel: fax: Referral ID Status Reason Start Date Expiration Date Visits Requested Visits Authorized [id number] Authorized Ancillary Services Required 07/02/2024 [id number] Question Answer Referral Priority Within [...] on the next service day for the [facility] Home Phlebotomy does not service every geographical location on a daily basis. Contact [facility] Client Services at to find out service days for a specific location. [facility] Patient Name: Concepción Jacob : 1940 Sex: female Address [address] [id number] Provider: @REF@? Ron Ortega MD? 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 Tests Requested Cmp, cbc, phos * Evaluate & Treat - Unlimited Visits (Within 30 days (routine)) - Authorized Specialty Diagnoses / Procedures Referred By Jamaal amaro Referred To Contact Physiatry / Physical Medicine And Rehab Diagnoses 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 1 Each 017 Active Additional Information Patient taking differently: 2.75 L/min(Oxygen)Nasal cannula CONTINUOUS, Reported on 07/02/2024 Coenzyme Q10 (COQ10) 100 MG CAPS Once [...] the morning. 100 Tablet 3 022 Active Zoster Vac Recomb Adjuvanted 50 [...] AT BEDTIME 30 Tablet 2 023 Active Trelegy Ellipta 100-62.5-25 MCG/ACT Aerosol Powder Breath Activated (Fluticasone-Umeclidini um-Vilanterol) INHALE ONE PUFF BY MOUTH EVERY DAY IN THE MORNING. RINSE MOUTH AFTER USE. STOP ANORO INHALER. 180 Each 1 024 Active Atorvastatin Calcium 10 MG Oral Tablet (Lipitor)Indications:Pu re hypercholesterolemia TAKE ONE TABLET BY MOUTH EVERY MORNING 90 Tablet 1 024 Active Mirtazapine 7.5 MG Oral Tablet (Remeron)Indications:De creased appetite,Weight loss TAKE ONE TABLET BY MOUTH AT BEDTIME 90 Tablet 1 024 Active Albuterol Sulfate 1.25 MG/3ML Inhalation Nebulization SolutionIndications:Chr onic respiratory failure with hypoxia (HCC),COPD, group D, by GOLD 2017 classification ([facility]) INHALE 1 VIAL (1.25MG )VIA NEBULIZER EVERY 6 HOURS NEEDED FOR WHEEZING 150 mL 5 025 Active Escitalopram Oxalate 20 MG Oral Tablet (Lexapro)Indications:An xiety TAKE ONE TABLET BY MOUTH EVERY MORNING 90 Tablet 025 Active amLODIPine Besylate 2.5 MG Oral Tablet (Norvasc) Take 1 Tablet by mouth in the morning. 90 Tablet 3 025 Active Salonpas Lidocaine Plus 4-10 % External Cream (Lidocaine HCl-Benzyl Alcohol) Apply topically to affected area. Apply to back and legs as needed for pain Active Ipratropium-Albuterol 0.5-2.5 (3) MG/3ML Inhalation Solution (Duoneb)Indications:Chr onic respiratory failure with hypoxia, on home oxygen therapy ([facility]) Inhale 3 mL by mouth every 6 hours as needed (wheezing). One vial in nebulizer every six hour as needed 120 mL 022 2024 Disconti nued(Med ication List Clean Up) Cyclobenzaprine HCl 5 MG Oral Tablet (Flexeril)Indications: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 --appointment needed with PCP for any additional refills 30 Tablet 024 2024 Disconti nued(Med ication List Clean Up) predniSONE 10 MG Oral Tablet (Deltasone) TAKE 2 TABLETS BY MOUTH ONCE DAILY FOR 2 DAYS, THEN TAKE 1 TABLET BY MOUTH DAILY FOR 2 DAYS, THEN STOP. 025 2024 Disconti nued(Med ication List Clean Up) documented as of this encounter (statuses as of 07/02/2024) Active Problems Problem Noted Date Diagnosed Date [...] as of this encounter (statuses as of 07/02/2024) Resolved Problems Problem Noted Date Diagnosed Date [...] as of this encounter (statuses as of 07/02/2024) Immunizations Name Administration Dates Next Due COVID-19 [...] Answer Date Recorded PHQ-2 Score -1 01/18/2020 Comments No Sex and Gender Information Value [...] as of this encounter Progress Notes * Ron Ortega MD - 07/02/2024 2:34 PM EST Chief Complaint Patient presents with Follow Up Patient location: HOME. I was in a hospital or clinic location. After connecting through televideo,patient was verified with two unique identifiers. Patient (or authorized legal dental detail representative) was then informed that this was a Telemedicine visit and being conducted confidentially over secure lines. Methods to assure confidentiality were taken. Patient acknowledged consent and understanding of pr ivacy and security of the Telemedicine visit. The patient agreed to participate. We did televideo for 5 min then connection failed so switched to phone only SUBJECTIVE: Concepción Jacob is a 84 year old female with PMH as below who presents for follow up COPD, hyperparathyroidism, she is with her daughter. Breathing has been good. Using oxygen pulse ox 89-97%. Sees pulmonary now, using inhalers, trelegy. Mood is "pretty good" doesn't leave house much 2/2 leg contractures, trying to stretch. Patient Active Problem List Diagnosis Esophageal reflux Pulmonary HTN (HCC) MEDICATION USE AGREEMENT Lumbar spinal stenosis Osteoporosis Diastolic dysfunction H/O: lung cancer History of splenectomy Old cerebrovascular accident (CVA) without late effect Chronic respiratory failure with hypoxia (HCC) COPD, group D, by GOLD 2017 classification ([facility]) Pure hypercholesterolemia Thrombocytosis Moderate mitral regurgitation Congenital single kidney History of chronic renal failure Hyperparathyroidism (HCC) History of hypertension Recurrent major depressive disorder, in partial remission (HCC) Tobacco abuse Severe protein-calorie malnutrition (HCC) Contracture of hand Current Outpatient Medications Medication Sig Dispense Refill oxygen GAS Use 2 L/min(Oxygen) as directed continuous. (Patient taking differently: Use 2.75 L/min(Oxygen) as directed continuous.) 1 Each 0 Coenzyme Q10 (COQ10) 100 MG CAPS Once daily, unsure of dose. acetaminophen (TYLENOL) 500 MG Tablet Take 1 Tablet by mouth every 6 hours as needed. 100 Tab 0 Probiotic Product (ALIGN) Capsule Take 1 Capsule by mouth in the morning. Glucosamine Chondroitin Complx Oral Capsule takes 2 tablets daily 60 Capsule 0 PreserVision AREDS Oral Tablet Take by mouth 1 Tablet in the morning. 30 Tablet 0 Aspirin EC 81 MG Oral Tablet Delayed Release Take by mouth 1 Tablet in the morning. 100 Tablet 3 Trelegy Ellipta 100-62.5-25 MCG/ACT Aerosol Powder Breath Activated (Rxxjxxpgnov-Udotwgrzlgou-Iezylsalxa) INHALE ONE PUFF BY MOUTH EVERY DAY IN THE MORNING. RINSE MOUTH AFTER USE. STOP ANORO INHALER.180 Each 1 Atorvastatin Calcium 10 MG Oral Tablet (Lipitor) TAKE ONE TABLET BY MOUTH EVERY MORNING 90 Tablet 1 Mirtazapine 7.5 MG Oral Tablet (Remeron) TAKE ONE TABLET BY MOUTH AT BEDTIME 90 Tablet 1 Albuterol Sulfate 1.25 MG/3ML Inhalation Nebulization Solution INHALE 1 VIAL (1.25MG )VIA NEBULIZEREVERY 6 HOURS NEEDED FOR WHEEZING 150 mL 5 Escitalopram Oxalate 20 MG Oral Tablet (Lexapro) TAKE ONE TABLET BY MOUTH EVERY MORNING 90 Tablet 0 amLODIPine Besylate 2.5 MG Oral Tablet (Norvasc) Take 1 Tablet by mouth in the morning. 90 Tablet 3 Salonpas Lidocaine Plus 4-10 % External Cream (Lidocaine HCl-Benzyl Alcohol) Apply topically to affected area. Apply to back and legs as needed for pain MEDICAL INSTRUCTIONS Use as directed . NURSING, PT/OT. DX: METABOLIC ENCEPHALOPATHY, COPD, HX OF LUNG CANCER, RESPIRATORY FAILURE WITH HYPOXEMIA 1 Each 1 Zoster Vac Recomb Adjuvanted 50 MCG/0.5ML Intramuscular Suspension Reconstituted (Shingrix) Inject 0.5 mL into a large muscle now and repeat dose in 60 to 180 days 1 Each 1 hydrOXYzine HCl 25 MG Oral Tablet TAKE ONE TABLET BY MOUTH EVERY DAY NEED FOR ANXIETY AND FOR SLEEP AT BEDTIME 30 Tablet 2 No current facility-administered medications for this visit. Review of patient's allergies indicates: Allergen Reactions Levaquin [Levofloxacin] Edema airway Codeine Rash Adhesive Tape Penicillins Rash Health Maintenance Due Topic Date Due Alpha-1 Antitrypsin Never done Zoster Vaccines (2 of 3) 04/03/2010 Adult Wellness Visit 03/21/2017 Meningitis B Vaccine (Bexsero/Trumemba) (3 of 4 - Increased Risk Trumenba 3-dose series) 07/12/2019 DXA Scan 11/01/2019 *BISPHONATE OR OTHER ACCEPTABLE MEDICATION NEEDED FOR OSTEOPOROSIS (REFER TO SMARTSET #1146) Never done Depression Monitoring 03/24/2020 MENINGOCOCCAL (MENACTRA/MENVEO) (3 - Risk 2-dose series) 10/17/2022 Influenza Vaccine (FLU shot) (1) 12/29/2023 COVID-19 Vaccine ( season) 2023 ROS: CONSTITUTIONAL: No fevers, sweats, or chills PULMONARY: No recent change in breathing CARDIOVASCULAR: No orthopnea, No paroxysmal nocturnal dyspnea, No edema, No palpitations, and No syncope ALL OTHER SYSTEMS NEGATIVE I reviewed social, PMH, PSH, and family history and updated where needed. 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 Tobacco Use Smoking status: Former Current packs/day: 1.00 Average packs/day: 1 pack/day for 50.0 years (50.0 ttl pk-yrs) Types: Cigarettes Smokeless tobacco: Never Vaping Use Vaping status: Never Used Substance and Sexual Activity Alcohol use: Never Comment: rare 1-2/month Drug use: No Sexual activity: Not Currently Comment: no history of STD's in past Other Topics Concern Not on file Social History Narrative 2 cats No mold Social Needs Financial Resource Strain: Not on file Food Insecurity: Not on file Transportation Needs: Not on file Social Connections: Not on file Housing Stability: Not on file Past Medical History: Diagnosis Date 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 COPD (chronic obstructive pulmonary disease) (HCC) DDD (degenerative disc disease), lumbar Diastolic dysfunction 06/07/2016 Dyslipidemia, goal LDL below 130 01/10/2010 Dyslipidemia, goal to be determined Esophageal reflux 01/10/2010 H/O: lung cancer 12/21/2016 Herpes zoster 01/10/2010 History of splenectomy 07/24/2017 HTN, goal below 140/90 02/22/2010 Low serum cortisol level 03/04/2016 Malignant neoplasm of upper lobe, bronchus or lung MEDICATION USE AGREEMENT 05/07/2014 Mild mitral regurgitation 03/24/2019 OTHER 06/2007 abscessed tooth removed 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) Spinal stenosis of lumbar region Past Surgical History: Procedure Laterality Date EGD, FLEXIBLE, DIAGNOSTIC 02/19/2011 food in stomach procedure aborted EGD, FLEXIBLE, W/BIOPSY 10/11/10 residual polyp tissue- repeat EGD in feb 2011 EGD, W/ENDOSCOPIC US 03/09/10 EXPLORATION OF ABDOMEN 03/31/2010 EXPLORATORY LAPAROTOMY performed by RENARD MCGUIRE at [place] [facility] INJECTION LUMBAR/SACRAL 02/08/2014 INJECTION SPINE LUMBAR OR SACRAL performed by Manuel Fuchs DO at OR [facility] LAP W/ADRENALECTOMY 03/31/2010 LAPAROSCOPIC ADRENALECTOMY performed by RENARD MCGUIRE at OR [facility] [place] LAPAROSCOPY DIAGNOSTIC 03/31/2010 LAPAROSCOPY DIAGNOSTIC performed by RENARD MCGUIRE at OR [facility] [place] REMOVAL OF APPENDIX REMOVAL OF KIDNEY right; done as child REMOVAL OF SMALL INTESTINE W/FUSION 03/31/2010 ENTERECTOMY SMALL BOWEL RESECTION performed by RENARD MCGUIRE at OR [facility] [place] REMOVAL OF SPLEEN, TOTAL 05/31 laceration REMOVE CATARACT, INSERT LENS PROSTH Bilateral Jan & Feb 2017 REMOVE GALLBLADDER SACROILIAC JOINT INJECT W/GUIDANCE 03/17/2018 INJECTION SACROILIAC JOINT performed by Manuel Fuchs DO at OR [facility] SACROILIAC JOINT INJECT W/GUIDANCE Bilateral 06/07/2023 INJECTION SACROILIAC JOINT performed by True Chester DO at OR [facility] SINGLE LOBECTOMY, LUNG 08/2003 right upper SINGLE LOBECTOMY, LUNG Right 2003 SMALL BOWEL ENDOSCOPY, REMOVE FOREIGN BODY 02/21/11 await BX, repeat in 1 year TOTAL ABD HYSTERECTOMY W/WO REMOVAL OF TUBE(S) TOTAL HYSTERECTOMY Family History Problem Relation Name Age of Onset Cancer Father lung cancer OBJECTIVE: PHYSICAL EXAM: There were no vitals taken for this visit. General: alert, healthy, and no distress, wearing oxygen Lungs: normal respiratory rate and rhythm Psych: normal affect, no flight of ideas or tangential thought, good eye contact, no pressured speech 06/11/24 pulm: 84-year-old female Severe COPD Chronic hypoxic respiratory failure on 3 LPM oxygen Pulmonary hypertension HFpEF Moderate pulmonary hypertension Ambulatory dysfunction with lower extremity distal contractures and bedridden status [id number] lung cancer right lung, status post RUL lobectomy, XRT and chemo Rx 2003 Recent hospitalization [facility] 05/2024 for COPD exacerbation c/w Trelegy C/w 3 LPM Oxygen, target oxygen saturation 92% Maintain aspiration precautions Avoid sick contacts Update vaccination status recommended Call with change in respiratory symptoms status F/u 6 months 06/01-06/05/24 [facility]: (1) Acute exacerbation of chronic obstructive pulmonary disease: 84-year-old female with past medical history significant for COPD, chronic respiratory failure withhypoxia on 4 L oxygen at home, pulmonary hypertension, diastolic dysfunction, moderate mitral regurgitation, severe protein calorie malnutrition, GERD, congenital single kidney, osteoporosis, contracture of hand, thrombocytosis, lumbar spinal stenosis, history of lung cancer, history of splenectomy, history of CVA, history of CKD, hypertension, depression, who lives at home and nonambulatory status because of contractures in the legs and lately daughter is living with her who helps with her ambulation comes because of ongoing shortness of breath and cough. Acute exacerbation of COPD Acute on chronic hypercapnic respiratory failure H/O COPD on 4 to 4.5 L of oxygen --Chest x-ray mild homogeneous haziness in right lower lung. Prominent bilateral bronchovascular markings. --Biofire: Negative --Continue DuoNebs, budesonide, formoterol nebs -Titrate down IV Solu-Medrol to prednisone --Also on Continue on ceftriaxone and azithromycin Titrate oxygen to keep saturations 88 to 92% Clinically improved Leukocytosis trended down Plan to discharge home today Acute kidney injury Cr 1.2>>0.9 Monitor renal function Avoid nephrotoxic agents as able Urinary tract infection--POA Urine culture growing E. coli Received Rocephin while hospitalized Hypertensive urgency Likely due to steroids Started on amlodipine IV labetalol as needed Blood pressure better H/O Chronic diastolic CHF Moderate mitral regurgitation --ECHO: Moderate concentric LVH. EF > 70%. Trace mitral regurgitation. Mild tricuspid regurgitation. 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 Lung cancer S/p right upper lobectomy Palliative care consulted to address goals of care History of CVA On aspirin and statin ASSESSMENT: (J44.9) COPD, group D, by GOLD 2017 classification (HCC) (primary encounter diagnosis) (J96.11) Chronic respiratory failure with hypoxia (HCC) (I27.20) Pulmonary HTN (HCC) (E21.3) Hyperparathyroidism (HCC) (I51.7) LVH (left ventricular hypertrophy) (F33.41) Recurrent major depressive disorder, in partial remission (HCC) (M62.461, M62.462) 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 PLAN: COPD, group D, by GOLD 2017 classification (HCC) (Primary) Cont trelegy Cont oxygen Cont pulm f/u Chronic respiratory failure with hypoxia (HCC) As above Pulmonary HTN (HCC) Sees pulm Discussed cardiology evaul, declines for now Hyperparathyroidism (HCC) - CBC WITH WBC DIFFERENTIAL; Future; Expected date: 07/02/2024 - COMPREHENSIVE METABOLIC PANEL; Future; Expected date: 07/02/2024 - PHOSPHORUS; Future; Expected date: 07/02/2024 - HOME PHLEBOTOMY REFERRAL OP Will schedule endocrine Poor surgical candidate LVH (left ventricular hypertrophy) Discussed cardiology, defers Recurrent major depressive disorder, in partial remission (HCC) Cont escitalopram, remeron 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 Hester, [facility] Follow-up: Return in about 6 months (around 01/02/2025), or if symptoms worsen or fail to improve. | Check-out note: Pls schedule televideo endocrine Ron Ortega MD documented in this encounter Nursing Notes * Orquidea Tamayo LPN - 07/02/2024 2:15 PM EST Patient presents for routine visit with Dr. Ortega. She has a lot of trouble getting out of thehouse due to mobility issues. She had a hospital visit since her last office visit with Dr. Ortega. documented in this encounter Plan of Treatment Upcoming Encounters Date Type Department Care Team (Late st Contact Info) Description 07/07/2024 7:05 AM EDT Laboratory Lab Mobile Phlebotomy [place] [address] [facility] [place] [address] [facility] Draw [facility] [place] [address] Scheduled Orders Name Type Priority Associated Diagnoses Orde r Schedule CBC WITH WBC DIFFERENTIAL Lab Routine Hyperparathyroidism (HCC) Expected: 07/02/2024 (Approximate), Expires: 07/02/2025 COMPREHENSIVE METABOLIC PANEL Lab Routine Hyperparathyroidism (HCC) Expected: 07/02/2024 (Approximate), Expires: 07/02/2025 PHOSPHORUS Lab Routine Hyperparathyroidism (HCC) Expected: 07/02/2024 (Approximate), Expires: 07/02/2025 Scheduled Referrals Name Type Priority Associated Diagnoses Orde r Schedule PHYSIATRY REFERRAL OP Referral Within 30 days (routine) 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 Ordered: 07/02/2024 HOME PHLEBOTOMY REFERRAL OP Referral Within 30 days (routine) Hyperparathyroidism (HCC) Ordered: 07/02/2024 Health Maintenance Due Date Last Done Comments [...] ASSESSMENT COMPLETED IN PAST YEAR FOR COPD 06/11/2025 06/11/2024 DTap/Tdap Vaccines (2 - Td or Tdap) 06/04/2026 06/04/2016 Pneumococcal Vaccine: 50+ Years Completed 03/23/2013, 08/28/2007 VITAMIN D LEVEL ONCE IN A LIFETIME-USE SMARTSET# 80157 Completed 03/10/2024, 01/17/2021, 04/05/2020, Additional history exists HPV (Gardasil) Vaccine Aged Out No lo nger eligible based on patient's age to complete this topic Hepatitis B Vaccine Aged Out No longe r eligible based on patient's age to complete this topic documented as of this encounter Medical Devices Not on filedocumented as of this encounter Visit Diagnoses Diagnosis COPD, group D, by GOLD 2017 classification (HCC)- Primary Chronic respiratory failure with hypoxia (HCC) Chronic respiratory failure Pulmonary HTN (HCC) Other chronic pulmonary heart diseases Hyperparathyroidism (HCC) Hyperparathyroidism, unspecified LVH (left ventricular hypertrophy) Cardiomegaly Recurrent major depressive disorder, in partial remission (HCC) 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
--- OUTSIDE RECORDS SUMMARY | 2024-07-28 03:47 | External Medical Summary ---
Author Name Unknown Address Unknown Organization [id number]:[facility] [place] [place] - [address] [place] [address] Laboratory Report Ordering Provider Test Date Status ETHAN SEGOVIA 07/07/2024 09:40:00 Final Observation Date Value Abnormality Reference (Units ) Status Phosphate 07/07/2024 09:40:00 3.7 2.5-4.8 (m g/dL) Final Performing Location LAB[facility]ATORY [facility] - [address] [place] [address]
--- OUTSIDE RECORDS SUMMARY | 2024-07-28 03:47 | External Medical Summary | Summary of Care ---
Author Name Unknown Organization [facility] Address [address] [place] [address] Phone [phone] Care Team Providers Care Lead Warehouse Associate Name Role Phone Ron Ortega MD Primary Care Provider + Reason for Visit * Reason Onset Date Comments Order Request 07/13/2024 Larger oxygen ta nks Encounter Details Date Type Department Care Team ([facility] Contact Info) Description 07/13/2024 Telephone Pulmonary Medicine Corky Chaparro [address] [place] [place] [phone] Antonio Srivastava MD [address] [phone] Order Request (Larger oxygen tanks) Allergies Active Allergy Reactions Criticality Noted Date Comments Adhesive Tape 02/15/2017 Codeine Rash Medium 10/16/2010 Levofloxacin Edema airway High 10/15/2017 Penicillins Rash 10/14/2000 documented as of this encounter (statuses as of 07/15/2024) Medications oxygen GASIndications:Hypoxia Use 2 L/min(Oxygen) as [...] (HCC),COPD, group D, by GOLD 2017 classification ([facility]) INHALE 1 VIAL (1.25MG )VIA NEBULIZER EVERY [...] and legs as needed for pain Active documented as of this encounter (statuses as of 07/15/2024) Active Problems Problem Noted Date Diagnosed Date [...] as of this encounter (statuses as of 07/15/2024) Resolved Problems Problem Noted Date Diagnosed Date [...] as of this encounter (statuses as of 07/15/2024) Immunizations Name Administration Dates Next Due COVID-19 [...] encounter Miscellaneous Notes * Telephone Encounter - Antonio Srivastava MD - 07/14/2024 4:17 PM EDT New oxygen order for 2 large tanks at 3 LPM was ordered. * Telephone Encounter - Mathieu Dobson OSA - 07/13/2024 4:32 PM EDT Pt needs two large oxygen tanks because when the power goes out she doesn't have access to oxygen and daughter states that her life depends on it. [facility] needs an rx update for 3 liters per minute of oxygen. Please advise and send over script documented in this encounter Plan of Treatment Upcoming Encounters Date Type Department Care Team (Late st Contact Info) Description 10/08/2024 7:10 AM EDT Laboratory Lab [facility] [place] [address] [place] [address] [place], [facility] Mobile Home Draw [address] [place] [address] Health Maintenance Due Date Last Done Comments [...] D LEVEL ONCE IN A LIFETIME-USE SMARTSET# [id number] Completed 03/10/2024, 01/17/2021, 04/05/2020, Additional history exists [...] failure with hypoxia (HCC) Chronic respiratory failure documented in this encounter Advance Directives * [...] 10:18 AM 11/18/2003 10:18 AM Care Teams Lead Warehouse Associate Relationship Specialty Start Date End Date Ron Ortega MD [address] [place] [address] PCP - General Internal Medicine 08/23/17 documented as of this encounter
--- OUTSIDE RECORDS SUMMARY | 2024-07-28 03:47 | External Medical Summary ---
Author Name Unknown Address Unknown Organization [facility] [address] [place] [address] Laboratory Report Ordering Provider Test Date Status DO LUCAROSAURA 07/07/2024 09:40:00 Final Observation Date Value Abnormality Reference (Units ) Status BUN 07/07/2024 09:40:00 19 6-20 (mg/dL) Final Creatinine 07/07/2024 09:40:00 0.7 0.5-1.0 (mg/dL) Final Glomerular filtration rate/1.73 sq M.predicted [Volume Rate/Area] in Serum, Plasma or Blood by Creatinine-based formula (CKD-EPI) 07/07/2024 09:40:00 84 >=60 (mL/min) Final eGFR is calculated based on the CKD-EPI 2020 equation. Sodium 07/07/2024 09:40:00 142 135-146 (m mol/L) Final Potassium 07/07/2024 09:40:00 4.9 3.5-5.1 (m mol/L) Final Cl 07/07/2024 09:40:00 104 98-107 (mm ol/L) Final CO2 07/07/2024 09:40:00 32 22-32 (mmo l/L) Final Anion gap 07/07/2024 09:40:00 6 Below low normal 7-1 5 (mmol/L) Final Glucose 07/07/2024 09:40:00 91 70-120 (mg /dL) Final Albumin 07/07/2024 09:40:00 3.7 Below low normal 3.8 -5.0 (g/dL) Final AST (Aspartate aminotransferase) 07/07/2024 09:40:00 22 10-35 (U/L) Fin al Alk Phos 07/07/2024 09:40:00 120 35-130 (U/ L) Final Bilirubin, Total 07/07/2024 09:40:00 0.3 <=1 .2 (mg/dL) Final Calcium 07/07/2024 09:40:00 10.2 8.4-10.2 ( mg/dL) Final Protein 07/07/2024 09:40:00 6.2 6.0-8.3 (g /dL) Final ALT (Alanine aminotransferase) 07/07/2024 09:40:00 13 10-35 (U/L) Emigdio frederick Performing Location [facility] [address] [place] [address]
--- OUTSIDE RECORDS SUMMARY | 2024-07-28 03:47 | External Medical Summary | Summary of Care ---
Author Name Unknown Organization [facility] Address [address] [place] [address] Phone [phone] Care Team Providers Care Sports Betting Manager Name Role Phone Ron Ortega MD Primary Care Provider + Reason for Visit * Reason Onset Date Comments Order Request 07/13/2024 Larger oxygen ta nks Encounter Details Date Type Department Care Team ([facility] Contact Info) Description 07/13/2024 Telephone Pulmonary Medicine Corky Chaparro [address] [phone] Antonio Srivastava MD [address] [phone] Order Request (Larger oxygen tanks) Allergies Active [...] group D, by GOLD 2017 classification ([facility]) INHALE 1 VIAL (1.25MG )VIA NEBULIZER [...] encounter Miscellaneous Notes * Telephone Encounter - Ashli Castellon LPN - 07/15/2024 12:15 PM EDT Order submitted to . * Telephone Encounter - Antonio Srivastava MD - 07/14/2024 4:17 PM EDT New oxygen order for 2 large tanks at 3 LPM was ordered. * Telephone Encounter - Mathieu Dobson OSA - 07/13/2024 4:32 PM EDT Pt needs two large oxygen tanks because when the power goes out she doesn't have access to oxygen and daughter states that her life depends on it. [facility] needs an rx update for 3 liters per minute of oxygen. Please advise and send over script documented in this encounter Plan of Treatment Upcoming Encounters Date Type Department Care Team (Late st Contact Info) Description 10/08/2024 7:10 AM EDT Laboratory Lab [facility] [place] [address] [place] [address] [place], [facility] Mobile Home Draw [address] [place] [address] Health Maintenance Due Date Last Done Comments [...] D LEVEL ONCE IN A LIFETIME-USE SMARTSET# [id number] Completed 03/10/2024, 01/17/2021, 04/05/2020, Additional history exists [...] 10:18 AM 11/18/2003 10:18 AM Care Teams Sports Betting Manager Relationship Specialty Start Date End Date Ron Ortega MD [address] [facility] [place] [address] PCP - General Internal Medicine 08/23/17 documented as of this encounter
--- OUTSIDE RECORDS SUMMARY | 2024-07-28 03:48 | External Medical Summary | Summary of Care ---
Author Name Unknown Organization [facility] Address [address] [place] [address] Phone [phone] Care Team Providers Care Tank Insulator Rubber Name Role Phone Ron Ortega MD Primary Care Provider + Reason for Visit * Reason Onset Date Comments Hospital Follow-Up 06/08/2024 [facility] d/c Encounter Details Date Type Department Care Team ([facility] Contact Info) Description 06/08/[address] [facility] [address] [place], [place] [phone] Alejandrina Gauthier, [facility] Hospital Follow-Up ([facility] d/c) Allergies Active Allergy Reactions Criticality Noted Date Comments Adhesive Tape 02/15/2017 Codeine Rash Medium 10/16/2010 Levofloxacin Edema airway High 10/15/2017 Lidocaine Other (Please comment) 02/23/2010 unknown Penicillins Rash 10/14/2000 documented as of this encounter (statuses as of 06/08/2024) Medications oxygen GASIndications:Hypoxia Use 2 L/min(Oxygen) as [...] (HCC),COPD, group D, by GOLD 2017 classification ([facility]) INHALE 1 VIAL (1.25MG )VIA NEBULIZER EVERY 6 HOURS NEEDED FOR WHEEZING 150 mL 5 025 Active amLODIPine Besylate 5 MG Oral Tablet (Norvasc) TAKE 1/2 TABLET BY MOUTH EVERY MORNING 025 Active Cefdinir 300 MG Oral Capsule (Omnicef) Take 1 Capsule by mouth in the morning and 1 Capsule before bedtime. 025 Active predniSONE 10 MG Oral Tablet (Deltasone) TAKE 2 TABLETS BY MOUTH ONCE DAILY FOR 2 DAYS, THEN TAKE 1 TABLET BY MOUTH DAILY FOR 2 DAYS, THEN STOP. 025 Active documented as of this encounter (statuses as of 06/08/2024) Active Problems Problem Noted Date Diagnosed Date [...] as of this encounter (statuses as of 06/08/2024) Resolved Problems Problem Noted Date Diagnosed Date [...] as of this encounter (statuses as of 06/08/2024) Immunizations Name Administration Dates Next Due COVID-19 [...] encounter Miscellaneous Notes * Telephone Encounter - Alejandrina Gauthier RN - 06/08/2024 12:11 PM EST Transitions of Care Note Reason for Referral:Recent Admission Phone visit for follow up: REYMUNDO Admitted to: [facility], Date: 06/01/24 Discharged to: home, Date: 06/05/24 Diagnosis driving hospitalization: COPD exacerbation Source/Contact: Other caregiver Thuy SUBJECTIVE Consent: Verbal consent for review of hospital discharge: Yes REVIEW OF SYSTEMS Patient/Other Reports: Current patient/caregiver problems or concerns: reports the patient is doing much better, not coughing as much, oxygen levels are improved CV: Denies problems Pulmonary: Cough- improving Chills/Sweats/Fever:Denies chills/sweats Denies fever Appetite:Denies problems such as nausea, vomiting, burning, decreased appetite Current diet: regular Bowel: denies problems Bladder: denies problems Wound (If applicable): N/A Pain:Denies Sleep:Denies problems FUNCTIONAL STATUS: ADL'S: Needs Assistance With:N/A as pt is independent IADL'S: Needs Assistance With:N/A as pt is independent Cognitive and Mental Health: denies problems, alert and oriented x 3, and able to communicate, understand instructions, process information. MEDICATION RECONCILIATION Medications: New medication(s) filled since hospitalization- omnicef, prednisone taper and amlodipine OBJECTIVE ASSESSMENT Medication Risk Assessment: No risks identified Did patient fail outpatient treatment? No Discharge instructions available for review? Yes PLAN Symptom Monitoring Interventions:Member/caregiver education - signs and symptoms to contact PrimaryCare (DO NOT DELETE-Three doll symptoms patient is to report to PCP) 1. Worsening cough 2. Hypoxia/SOB 3. Fever/chills Data Collection AssociateSpinning Lathe Operator of Care interventions/Action Plan: Patient has an appt in pulmonology this week, so family would like to not schedule hospital d/c appt at this time as the patient has a regular follow up scheduled with Dr Ortega in June. Educated on role of REYMUNDO completed with patient/caregiver. Educated patient/caregiver on patient right to have input on REYMUNDO plan of care. Verification of Home Health/DME if indicated: NO no HH services ordered Identified Care Gaps: Yes Care Gaps closed this call: Medication optimization, Services in place, and Transition of Care follow-up communication Re-evaluation of Plan of Care and progress towards goals achievement: Patient education this visit: Verbal, as above Plan to instructed to call Primary Care Provider with change in symptoms or as needed before next follow-up, discharge needs met, verbalizes understanding and agrees with plan. Alejandrina Gauthier RN documented in this encounter Plan of Treatment Upcoming Encounters Date Type Department Care Team (Late st Contact Info) Description 06/11/2024 3:30 PM EST Office Visit Pulmonary Medicine, [facility] [address] [facility] [place] [address] Antonio Srivastava MD [address] [place] [phone] 07/02/2024 2:20 PM EST Telemedicine General Internal Medicine [facility] [address] [facility] [place] [address] Ron Ortega MD [address] [facility] [place] [address] Health Maintenance Due Date Last Done Comments Alpha-1 Antitrypsin 01/26/1958 O2 ASSESSMENT COMPLETED IN PAST YEAR FOR COPD 01/26/1958 Zoster Vaccines (2 of 3) 04/03/2010 [...] 2023 05/05/2023, 01/17/2021, 02/06/2020, Additional history exists DTap/Tdap Vaccines (2 - Td or Tdap) 06/04/2026 06/04/2016 Pneumococcal Vaccine: 50+ Years Completed 03/23/2013, 08/28/2007 VITAMIN D LEVEL ONCE IN A LIFETIME-USE SMARTSET# [id number] Completed 03/10/2024, 01/17/2021, 04/05/2020, Additional history exists [...] 10:18 AM 11/18/2003 10:18 AM Care Teams Tank Insulator Rubber Relationship Specialty Start Date End Date Ron Ortega MD [address] [facility] [place] [address] PCP - General Internal Medicine 08/23/17 documented as of this encounter
--- OUTSIDE RECORDS SUMMARY | 2024-07-28 03:48 | External Medical Summary | Summary of Care ---
Author Name Unknown Organization [facility] Address [address] [place] [address] Phone [phone] Care Team Providers Care Inside Sales Trainer Name Role Phone Ron Ortega MD Primary Care Provider + Reason for Visit * Reason Comments Follow Up * Evaluate & Treat - Unlimited Visits (Within 30 days (routine)) - Authorized Specialty Diagnoses / Procedures Referred By Contac t Referred To Contact Pulmonary Diseases / Pulmonary Diagnoses Chronic respiratory failure with hypoxia (HCC) H/O: lung cancer History of tobacco use Jumana Mars MD [address] [place] [address] Phone: tel: fax: Referral ID Status Reason Start Date Expiration Date Visits Requested Visits Authorized [id number] Authorized Specialty Services Required 03/03/[id number] Encounter Details Date Type Department Care Team (Latest Contact Info) Description 06/11/2024 3:30 PM EST Office Visit Pulmonary Medicine, [facility] [address] [place] [address] Antonio Srivastava MD [address] [place] [id number] COPD, group D, by GOLD 2017 classification ([facility])* Allergies Active Allergy Reactions Criticality Noted Date Comments Adhesive Tape 02/15/2017 Codeine Rash Medium 10/16/2010 Levofloxacin Edema airway High 10/15/2017 Lidocaine Other (Please comment) 02/23/2010 unknown Penicillins Rash 10/14/2000 documented as of this encounter (statuses as of 06/12/2024) Medications oxygen GASIndications:Hypoxia Use 2 L/min(Oxygen) as [...] (HCC),COPD, group D, by GOLD 2017 classification ([facility]) INHALE 1 VIAL (1.25MG )VIA NEBULIZER EVERY 6 HOURS NEEDED FOR WHEEZING 150 mL 5 025 Active amLODIPine Besylate 5 MG Oral Tablet (Norvasc) TAKE 1/2 TABLET BY MOUTH EVERY MORNING 025 Active predniSONE 10 MG Oral Tablet (Deltasone) TAKE 2 TABLETS BY MOUTH ONCE DAILY FOR 2 DAYS, THEN TAKE 1 TABLET BY MOUTH DAILY FOR 2 DAYS, THEN STOP. 025 Active Escitalopram Oxalate 20 MG Oral Tablet (Lexapro)Indications:An xiety TAKE ONE TABLET BY MOUTH EVERY MORNING 90 Tablet 025 Active Cefdinir 300 MG Oral Capsule (Omnicef) Take 1 Capsule by mouth in the morning and 1 Capsule before bedtime. 025 2024 Disconti nued(Med ication List Clean Up) documented as of this encounter (statuses as of 06/12/2024) Active Problems Problem Noted Date Diagnosed Date [...] as of this encounter (statuses as of 06/12/2024) Resolved Problems Problem Noted Date Diagnosed Date [...] as of this encounter (statuses as of 06/12/2024) Immunizations Name Administration Dates Next Due COVID-19 [...] Former Cigarettes 1 50 Smokeless Tobacco: Never Tobacco Cessation:Counseling Given: Not Answered Alcohol Use Standard Drinks/Week Comments Never 0 [...] on file documented as of this encounter Last Filed Vital Signs Vital Sign Reading Time Taken Comments Blood Pressure 106/62 06/11/2024 3:40 PM EST Pulse 103 06/11/2024 3:40 PM EST Temperature 37.6 °C (99.7 °F) 06/11/2024 3 :40 PM EST Respiratory Rate 22 06/11/2024 3:40 PM EST Oxygen Saturation 94% 06/11/2024 3:4 0 PM EST O2 3LPM on demand, rest Inhaled Oxygen Concentration - - Weight 51.7 kg (114 lb) 06/11/2024 3:40 PM EST Height 162.6 cm (5' 4") 06/11/2024 3:40 PM EST Body Mass Index 19.57 06/11/2024 3:40 PM EST documented in this encounter Progress Notes * Antonio Srivastava MD - 06/11/2024 3:52 PM EST Images from the original note were not included. 06/11/2024 Pulmonary Medicine, [address] [id number] Concepción Jacob 1940 female 84 year old Attending Physician Documentation: ( [facility] 2022) 84-year-old female Severe COPD Chronic hypoxic respiratory failure on 3 LPM oxygen Pulmonary hypertension HFpEF Moderate pulmonary hypertension Ambulatory dysfunction with lower extremity distal contractures and bedridden status Ees-xlpig-jmpi lung cancer right lung, status post RUL lobectomy, XRT and chemo Rx 2003 Recent hospitalization [facility] 05/2024 for COPD exacerbation Current bronchodilator regimen: Trelegy, p.r.n. albuterol Three LPM continuous nasal cannula oxygen status Describes minimal mucoid expectoration Physical Examination: Alert, awake, no distress Class 2 throat No JVD Adeq Air entry in all lung snow, scattered Wheezing, no rales no dullness S1, S2, no murmur Soft nontender abdomen No LE Edema, lower extremity distal contractures, and upper extremity digital contractures Nonlateralizing Neuro Exam Medical data from recent [facility] hospitalization was reviewed and outlined below Assessment 84-year-old female Severe COPD Chronic hypoxic respiratory failure on 3 LPM oxygen Pulmonary hypertension HFpEF Moderate pulmonary hypertension Ambulatory dysfunction with lower extremity distal contractures and bedridden status Kmw-niusa-naja lung cancer right lung, status post RUL lobectomy, XRT and chemo Rx 2003 Recent hospitalization [facility] 05/2024 for COPD exacerbation c/w Trelegy C/w 3 LPM Oxygen, target oxygen saturation 92% Maintain aspiration precautions Avoid sick contacts Update vaccination status recommended Call with change in respiratory symptoms status F/u 6 months Follow Up: Return in about 6 months (around 12/09/2024) for Clinic Visit, Video to Home, Video to Clinic, Telephone Visit. | For: Clinic Visit, Video to Home, Video to Clinic, Telephone Visit | Check-out note: 84-year-old female Severe COPD Chronic hypoxic respiratory failure on 3 LPM oxygen Pulmonary hypertension HFpEF Moderate pulmonary hypertension Ambulatory dysfunction with lower extremity distal contractures and bedridden status [id number]-vefp lung cancer right lung, status post RUL lobectomy, XRT and chemo Rx 2003 Recent hospitalization [facility] 05/2024 for COPD exacerbation c/w Trelegy C/w 3 LPM Oxygen, target oxygen saturation 92% Maintain aspiration precautions Avoid sick contacts Follow Up: Return in about 6 months (around 12/09/2024) for Clinic Visit, Video to Home, Video to Clinic, Telephone Visit. | For: Clinic Visit, Video to Home, Video to Clinic, Telephone Visit | Check-out note: Update vaccination status recommended Call with change in respiratory symptoms status F/u 6 months I spent a total of 40-54 minutes (exact time 45 mins) on the date of service in preparation, delivery, and documentation of the care provided to Concepción Jacob excluding any time spent in the performance of separately billed services or time spent by another provider/QHP. Antonio Srivastava MD Data review: Following reports, and data as outlined below was personally reviewed and interpreted by myself. CXR [facility] 06/01/2024 CXR 06/01/2024 c/w CXR 2021, [facility] Echo 05/2024: [facility] Med Record Discharge Summary Review 05/2024 Subjective CC: Chief Complaint Patient presents with Follow Up HPI: Nursing Notes: Ashli Castellon LPN 06/11/24 1548 Addendum Pt is here for pulmonary f/u. Interm History/Respiratory Symptoms Cough: occasional, dry Hemoptysis: no Sinus Symptoms: congestion Hospitalizations: [facility] 06/01-, [facility] ED Trips: 06/01/24 Triggers: exertion, smoke, humidity Nocturnal: no problems, sleeps with head elevated CPAP/BiPAP/O2: O2 3LPM continuous DME Supplier: [facility] Flu Vaccine: 2023 Pneumovax: 2007 Prevnar: 2013 COVID 19: x 5 Mmrc Cat Question 06/11/2024 3:45 PM EST - Filed by Ashli Castellon LPN When do you become breathless? (4) I am too breathless to leave the house or I am breathless when dressing How frequently do you cough? (3) Do you have phlegm in your chest? (0) - I have no phlegm (mucus) in my chest Is your chest tight? (0) - My chest does not feel tight at all How breathless do you become when walking up a hill or steps? (5) - When I walk up a hill or one flight of stairs I am very breathless How limited are you doing activities at home? (5) - I am very limited doing activities at home How confident are you leaving home with your lung condition? (5) - I am not at all confident leaving my home because of my lung condition How soundly do you sleep? (0) - I sleep soundly How much energy do you have? (5) - I have no energy at all Total MMRC Score (range: 0 - 4) 4 Total CAT Score (range: 0 - 40) 23 Objective Filed Vitals: 06/11/24 1540 BP: 106/62 Pulse: 103 Resp: 22 Temp: 37.6 °C (99.7 °F) TempSrc: Tympanic SpO2: 94% Weight: 51.7 kg (114 lb) Height: 1.626 m (5' 4") Exam: Const: No signs of acute distress present. Head/Face: Normal on inspection. Eyes: Conjunctivae clear. Pupils equal round and reactive to light. ENMT: Oropharynx: No erythema, exudate or masses. Posterior pharynx is normal. Neck: Supple and symmetric. Resp: Respiratory examination as outlined above CV: Rate is regular. Rhythm is regular. No heart murmur appreciated. Extremities: No edema of the lower limbs bilaterally. Skin: Skin is warm and dry. Neuro: Coordination normal. No involuntary movement. Psych: Patient's attitude is cooperative. Mood is normal. Affect is normal. Tests reviewed with the patient: No imaging results in the last 6 months Available Radiologic data was reviewed by me in PACS. The images were shown to the patient and findings were discussed with the patient. HOME MEDICATIONS: Escitalopram Oxalate 20 MG Oral Tablet (Lexapro) amLODIPine Besylate 5 MG Oral Tablet (Norvasc) predniSONE 10 MG Oral Tablet (Deltasone) Albuterol Sulfate 1.25 MG/3ML Inhalation Nebulization Solution Mirtazapine 7.5 MG Oral Tablet (Remeron) Cyclobenzaprine HCl 5 MG Oral Tablet (Flexeril) Atorvastatin Calcium 10 MG Oral Tablet (Lipitor) Trelegy Ellipta 100-62.5-25 MCG/ACT Aerosol Powder Breath Activated (Secydnrudzk-Qwcqagvgzceb-Gzrfxrlwhf) hydrOXYzine HCl 25 MG Oral Tablet Ipratropium-Albuterol 0.5-2.5 (3) MG/3ML Inhalation Solution (Duoneb) Aspirin EC 81 MG Oral Tablet Delayed Release Glucosamine Chondroitin Complx Oral Capsule MEDICAL INSTRUCTIONS PreserVision AREDS Oral Tablet Probiotic Product (ALIGN) Capsule acetaminophen (TYLENOL) 500 MG Tablet Coenzyme Q10 (COQ10) 100 MG CAPS oxygen GAS Zoster Vac Recomb Adjuvanted 50 MCG/0.5ML Intramuscular Suspension Reconstituted (Shingrix) ROS: No reported history of Hemoptysis, Hematemesis, Melena No reported history of Dysuria, Hematuria, Flank Pain No reported history of chronic headache, seizures No reported history of Fall or trauma . No reported history of recent change in weight or appetite. 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 Benign neoplasm [...] [place] [facility] [place] LUMBAR/SACRAL 02/08/2014 INJECTION SPINE LUMBAR OR SACRAL performed by Manuel Fuchs DO at OR [facility] LAP W/ADRENALECTOMY 03/31/2010 LAPAROSCOPIC ADRENALECTOMY performed by RENARD MCGUIRE [place] [facility] LAPAROSCOPY DIAGNOSTIC 03/31/2010 LAPAROSCOPY DIAGNOSTIC performed [place] RENARD MCGUIRE [place] [facility] REMOVAL OF APPENDIX REMOVAL OF KIDNEY right; done as child REMOVAL OF SMALL INTESTINE W/FUSION 03/31/2010 ENTERECTOMY SMALL BOWEL RESECTION performed [place] RENARD [place]CGUIRE [place] [facility] REMOVAL OF SPLEEN, TOTAL 05/31 laceration REMOVE CATARACT, INSERT LENS PROSTH Bilateral Jan & Feb 2017 REMOVE GALLBLADDER SACROILIAC JOINT INJECT W/GUIDANCE 03/17/2018 INJECTION SACROILIAC JOINT performed by Manuel Fuchs DO at OR [facility] SACROILIAC JOINT INJECT W/GUIDANCE Bilateral 06/07/2023 INJECTION SACROILIAC JOINT performed by True Chester DO at OR [facility] SINGLE LOBECTOMY, LUNG 08/2003 right upper SINGLE LOBECTOMY, LUNG Right 2003 SMALL BOWEL ENDOSCOPY, REMOVE FOREIGN BODY 02/21/11 await BX, repeat in 1 year TOTAL ABD HYSTERECTOMY W/WO REMOVAL OF TUBE(S) TOTAL HYSTERECTOMY Social History Socioeconomic History Marital status: Occupational History 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 Tobacco Use Smoking status: Former Current packs/day: 1.00 Average packs/day: 1 pack/day for 50.0 years (50.0 ttl pk-yrs) Types: Cigarettes Smokeless tobacco: Never Vaping Use Vaping status: Never Used Substance and Sexual Activity Alcohol use: Never Comment: rare 1-2/month Drug use: No Sexual activity: Not Currently Comment: no history of STD's in past Social History Narrative 2 cats No mold Family History Problem Relation Name Age of Onset Cancer Father lung cancer Review of patient's allergies indicates: Allergen Reactions Levaquin [Levofloxacin] Edema airway Codeine Rash Adhesive Tape Lidocaine Other (Please comment) unknown Penicillins Rash documented in this encounter Nursing Notes * Ashli Castellon LPN - 06/11/2024 3:32 PM EST Pt is here for pulmonary f/u. Interm History/Respiratory Symptoms Cough: occasional, dry Hemoptysis: no Sinus Symptoms: congestion Hospitalizations: [facility] 06/01-, [facility] ED Trips: 06/01/24 Triggers: exertion, smoke, humidity Nocturnal: no problems, sleeps with head elevated CPAP/BiPAP/O2: O2 3LPM continuous DME Supplier: [facility] Flu Vaccine: 2023 Pneumovax: 2008 Prevnar: 2013 COVID 19: x 5 Mmrc Cat Question 06/11/2024 3:45 PM EST - Filed by Ashli Castellon LPN When do you become breathless? (4) I am too breathless to leave the house or I am breathless when dressing How frequently do you cough? (3) Do you have phlegm in your chest? (0) - I have no phlegm (mucus) in my chest Is your chest tight? (0) - My chest does not feel tight at all How breathless do you become when walking up a hill or steps? (5) - When I walk up a hill or one flight of stairs I am very breathless How limited are you doing activities at home? (5) - I am very limited doing activities at home How confident are you leaving home with your lung condition? (5) - I am not at all confident leaving my home because of my lung condition How soundly do you sleep? (0) - I sleep soundly How much energy do you have? (5) - I have no energy at all Total MMRC Score (range: 0 - 4) 4 Total CAT Score (range: 0 - 40) 23 documented in this encounter Plan of Treatment Upcoming Encounters Date Type Department Care Team (Late st Contact Info) Description 07/02/2024 2:20 PM EST Telemedicine General Internal Medicine [facility] [address] [facility] [place] [address] Ron Ortega MD [address] [facility] [address] Scheduled Referrals Name Type Priority Associated Diagnoses Orde r Schedule PULMONARY REFERRAL OP Referral Within 30 days (routine) Chronic respiratory failure with hypoxia (HCC) H/O: lung cancer History of tobacco use Ordered: 03/03/2024 Health Maintenance Due Date Last [...] D LEVEL ONCE IN A LIFETIME-USE SMARTSET# [id number] Completed 03/10/2024, 01/17/2021, 04/05/2020, Additional history exists [...] D, by GOLD 2017 classification (HCC)- Primary documented in this encounter Advance Directives [...] 10:18 AM 11/18/2003 10:18 AM Care Teams Inside Sales Trainer Relationship Specialty Start Date End Date Ron Ortega MD [address] [place] [address] PCP - General Internal Medicine 08/23/17 documented as of this encounter
--- OUTSIDE RECORDS SUMMARY | 2024-07-28 03:48 | External Medical Summary | Summary of Care ---
Author Name Unknown Organization [facility] Address [address] [place] [address] Phone [phone] Care Team Providers Care Blind Escort Name Role Phone Ron Long MD Primary Care Provider + Reason for Visit * Reason Comments eRx-Medication Refill Encounter Details Date Type Department Care Team ([facility] Contact Info) Description 06/09/2024 Refill General Internal Medicine [facility] [address] [place] [address] Ron Long MD [address] [place] [address] Anxiety Allergies Active Allergy Reactions Criticality Noted Date Comments Adhesive Tape 02/15/2017 Codeine Rash Medium 10/16/2010 Levofloxacin Edema airway High 10/15/2017 Lidocaine Other (Please comment) 02/23/2010 unknown Penicillins Rash 10/14/2000 documented as of this encounter (statuses as of 06/10/2024) Medications oxygen GASIndications:Hypoxia Use 2 L/min(Oxygen) as [...] AT BEDTIME 30 Tablet 2 2022 Active Trelegy Ellipta 100-62.5-25 MCG/ACT Aerosol Powder [...] FOR WHEEZING 150 mL 5 2024 Active amLODIPine Besylate 5 MG Oral Tablet (Norvasc) TAKE 1/2 TABLET BY MOUTH EVERY MORNING 2024 Active Cefdinir 300 MG Oral Capsule (Omnicef) Take 1 Capsule by mouth in the morning and 1 Capsule before bedtime. 2024 Active predniSONE 10 MG Oral Tablet (Deltasone) TAKE 2 TABLETS BY MOUTH ONCE DAILY FOR 2 DAYS, THEN TAKE 1 TABLET BY MOUTH DAILY FOR 2 DAYS, THEN STOP. 2024 Active Escitalopram Oxalate 20 MG Oral Tablet (Lexapro)Indications:A nxiety TAKE ONE TABLET BY MOUTH EVERY MORNING 90 Tablet 2024 Active Escitalopram Oxalate 20 MG Oral Tablet (Lexapro)Indications:A nxiety TAKE ONE TABLET BY MOUTH EVERY MORNING 90 Tablet 06/10 Discontinued documented as of this encounter (statuses as of 06/10/2024) Active Problems Problem Noted Date Diagnosed Date [...] as of this encounter (statuses as of 06/10/2024) Resolved Problems Problem Noted Date Diagnosed Date [...] as of this encounter (statuses as of 06/10/2024) Immunizations Name Administration Dates Next Due COVID-19 [...] encounter Miscellaneous Notes * Telephone Encounter - Karlene Olivares RPh - 06/10/2024 11:13 AM EST RX authorized. Zero refills given until upcoming appt. 07/02/2024 Karlene Cervantes PharmD Clinical Pharmacist [facility] ([facility]) [phone] 06/10/2024,11:13 AM * Telephone Encounter - Karlene Olivares RPh - 06/10/2024 11:13 AM EST Signed Prescriptions: Disp Refills Escitalopram Oxalate 20 MG Oral Tablet (Le*90 Tab*0 Sig: TAKE ONE TABLET BY MOUTH EVERY MORNING Authorizing Provider: RON LONG Ordering User: KARLENE OLIVARES documented in this encounter Plan of Treatment Upcoming Encounters Date Type Department Care Team (Late st Contact Info) Description 06/11/2024 3:30 PM EST Office Visit Pulmonary Medicine, [facility] [address] [facility] [place] [address] Antonio Srivastava MD [address] [place] [address] 07/02/2024 2:20 PM EST Telemedicine General Internal Medicine [facility] [place] [address] [facility] [place], [place] [address] Ron Long MD [address] [facility] [place], [place] [address] Health Maintenance Due Date Last Done Comments [...] D LEVEL ONCE IN A LIFETIME-USE SMARTSET# [id number] Completed 03/10/2024, 01/17/2021, 04/05/2020, Additional history exists [...] 10:18 AM 11/18/2003 10:18 AM Care Teams Blind Escort Relationship Specialty Start Date End Date Ron Long MD [address] [place] [address] PCP - General Internal Medicine 08/23/17 documented as of this encounter
[2024-07-28] MEDS: ACETAMINOPHEN 1,000 MG/100 ML VIAL IV PRN (04:15)
[2024-07-28] MEDS: methylPREDNISolone 40 MG in SYRINGE 0 ML IV SCH (06:13)
[2024-07-28 06:40] LABS: Hematocrit (blood only) 41.5 % (37.0-47.0); Hemoglobin 12.8 g/dl (12.0-16.0); Mean Corpuscular Hemoglobin 28.5 pg (25.0-34.0); Mean Corpuscular Hgb Conc 30.8 g/dL (32.0-36.0); Mean Corpuscular Volume 92.4 fL (80.0-100.0); Mean Platelet Volume 11.6 fL (9.4-12.4); Platelet Count 327 K/uL (130-400); RDW Coefficient of Variation 14.5 % (11.5-14.5); RDW Standard Deviation 49.3 fL (36.4-46.3); Red Blood Count 4.49 M/uL (4.20-5.40); White Blood Count 22.86 K/ul (4.8-10.8)
[2024-07-28 07:22] LABS: BUN Creatinine Ratio 20.7 (10-20); Calcium 9.2 mg/dl (8.6-10.3); Creatinine Clr Calc Pharmacy 18.3 ml/min; Magnesium 2.2 mg/dl (1.7-2.4); Phosphorus 6.1 mg/dl (2.5-4.9); Potassium 4.7 mmol/L (3.5-5.1)
[2024-07-28 07:29] LABS: Estimated Average Glucose 108 mg/dl; Hemoglobin A1C 5.4 % (4.5-5.6)
--- NOTE | 2024-07-28 08:01 | Electrocardiogram Report ---
Test Reason : Blood Pressure : */* mmHG Vent. 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
[2024-07-28 08:49] LABS: Base Excess ABG -2.8 mEq/L (-9-1.8); HCO3 ABG 25 mmol/L (19-24); Oxygen Saturation ABG 96.7 % (90-95); PCO2 ABG 54 mmHg (35-46); PO2 ABG 75 mmHg (80-95); pH ABG 7.27 (7.35-7.45)
[2024-07-28 08:50] LABS: Allen Test Pos (Pos)
[2024-07-28] MEDS ORDERED: NON-FORMULARY MEDICATION (Fluticasone-Umeclidin-Vilanter [Trelegy Ellipta] 100-62.5-25 mcg INH SCH (09:00)
[2024-07-28] MEDS ORDERED: methylPREDNISolone 125 MG/2 ML VIAL IV SCH (09:00)
[2024-07-28] MEDS ORDERED: ACETAMINOPHEN 1,000 MG/100 ML VIAL IV STA (09:04)
[2024-07-28] MEDS: ACETAMINOPHEN 1,000 MG/100 ML VIAL IV STA (09:12)
[2024-07-28] MEDS: FLUTICASONE FUROATE 100MCG 14 PUFFS/INHALER INH SCH (09:22)
[2024-07-28] MEDS: UMECLIDINIUM/VILANTEROL 62.5/25MCG 7 PUFFS/INHALER INH SCH (09:22)
[2024-07-28] MEDS: ATORVASTATIN 10 MG TAB PO SCH (09:43)
[2024-07-28] MEDS: ASPIRIN 81 MG ECTAB PO SCH (09:43)
[2024-07-28] MEDS: amLODIPine BESYLATE 5 MG TAB PO SCH (09:43)
[2024-07-28] MEDS: ESCITALOPRAM OXALATE 20 MG TAB PO SCH (09:43)
[2024-07-28] MEDS: BUDESONIDE 0.5 MG/2 ML VIAL (PULMICORT) NEB SCH (10:39)
[2024-07-28] MEDS: FORMOTEROL 20 MCG/2 ML VIAL NEB SCH (10:39)
[2024-07-28] MEDS: cefTRIAXone SODIUM 2,000 MG/50 ML BAG IV SCH (10:46)
[2024-07-28] MEDS: MoRPHine SULFATE 2 MG/ML CARP IV STA ×2 (11:18→15:43)
--- NOTE | 2024-07-28 12:01 | XRay Report ---
XR knee LT 1 or 2V routine HISTORY: 84 years-old Female fall, rule out fracture acute left knee pain status post fall COMPARISON: None TECHNIQUE: 2 views of the left knee FINDINGS: Limited exam secondary to positioning. The bones are demineralized. 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 Arterial calcifications. No definite acute fracture, dislocation or large joint effu dewayne. IMPRESSION: Limited exam secondary to positioning. No acute fracture identified. ACT 112: Negative or not required by law. The above report was generated using voice recognition software. It may contain grammatical, syntax o r spelling errors. Electronically signed by: Dajuan Og M.D. 07/28/2024 12:00 PM
--- NOTE | 2024-07-28 12:20 | XRay Report ---
XR knee RT 1 or 2V routine CLINICAL HISTORY: fall, rule out fracture COMPARISON: None FINDINGS: Osteopenia is noted. There is a moderate size joint effusion with lipohemarthrosis. There are moderate degenerative changes within the right knee, most pronounced within the patellofemoral co mpartment. There may be mild depression of the medial tibial plateau. There is cortical irregularity of the medial tibial plateau. IMPRESSION: Moderate size joint effusion with lipohemarthrosis suggestive of an acute intra-articular fracture. P robable medial tibial plateau fracture with minimal depression. A CT of the right knee could be obtai martin for further evaluation. ACT 112: Negative or not required by law. Electronically signed by: Yehuda Miller M.D. 07/28/2024 12:18 PM
--- NOTE | 2024-07-28 13:41 | Orthopedic Consultation ---
Date of Service July 28, 2024 Assessment & Plan (1) Right medial tibial plateau fracture: She was seen and examined by Dr. Muñoz today as well. She has a nondisplaced fracture of the tibia plateau. Recommend nonoperative management. This can take about 2-3 months to heel. Should be nonweight bearing on the right leg, but is nonambulatory and mostly nonweight bearing prior to this injury. Due to the flexion contracture we can't really put her in a knee immobilizer. We offered to get a hinged knee brace but her daughter declined at this time. If they decide to proceed with a brace a hinged knee braced locked in 30 degrees of flexion would be appropriate. History of Present Illness Reason for Consultation: . Requesting Physician: . Attending Physician: Usman Dalton MD .84 year old patient that we are asked to see for right knee pain. Her daughter is here with her and provided much of her history. She has chronic knee pain, is nonambulatory, does minimal weight bearing for transfers. Her daughter was helping her transfer yesterday when they both fell. This aggravated her right knee. She does have some swelling of her knee. Seems to be mostly c/o right knee pain. xrays were obtained and orthopedics consulted. Allergies Allergy/AdvReac Type Severity Reaction Status Date / Time levofloxacin [From Levaquin] Allergy Severe airway Verified 10/19/21 20:02 edema Penicillins Allergy Unknown hives Unverified 10/27/19 09:19 procaine Allergy Unknown SWELLING Verified 10/27/19 09:19 codeine AdvReac Unknown GI UPSET Unverified 10/27/19 09:19 lidocaine AdvReac Unknown Verified 10/19/21 20:03 Home Medications Medication Instructions Recorded Confirmed Type Bifidobacterium infantis 4 mg 4 mg PO DAILY 06/01/24 07/27/24 History capsule (Align (B.infantis)) albuterol sulfate 1.25 mg/3 mL 1.25 mg continuous nebulization 06/01/24 07/27/24 History solution for nebulization Q6H PRN Shortness Of Breath Or Wheezing aspirin 81 mg tablet,delayed 81 mg PO DAILY 06/01/24 07/27/24 History release atorvastatin 10 mg tablet 10 mg PO DAILY 06/01/24 07/27/24 History escitalopram oxalate 20 mg tablet 20 mg PO DAILY 06/01/24 07/27/24 History fluticasone fur. 100 mcg-umeclid 1 inh inhalation DAILY 06/01/24 07/27/24 History 62.5 mcg-vilant 25 mcg inhalat.powder (Trelegy Ellipta) omqpvwmimhx-sgdakxjdwlj-lxn C-cori 2 tab PO DAILY 06/01/24 07/27/24 History 250 mg-200 mg-30 mg-2.5 mg tablet (Glucosamine-Chondroitin Complex) mirtazapine 7.5 mg tablet 7.5 mg PO HS 06/01/24 07/27/24 History vitamins A,C,N-vozo-lbfzer 4,296 1 cap PO BID 06/01/24 07/27/24 History mcg-226 mg-90 mg capsule (PreserVision AREDS) amlodipine 5 mg tablet (Norvasc) 2.5 mg (1/2 x 5 mg) PO QAM #30 tabs 06/05/24 07/27/24 Rx Past Med/Surg History Problem List Air hunger Goals of care, counseling/discussion Right medial tibial plateau fracture Elevated troponin (Acute) Leukocytosis (Acute) Hypoxia (Acute) Respiratory acidosis (Acute) COPD exacerbation (Acute) Respiratory distress (Acute) Acute on chronic respiratory failure with hypoxia and hypercapnia Acute on chronic respiratory failure with hypoxemia POLST (Physician Orders for Life-Sustaining Treatment) HANNA (dyspnea on exertion) Counseling regarding advanced directives and goals of care Palliative care by specialist Acute exacerbation of chronic obstructive pulmonary disease (Acute) Acute and chronic respiratory failure with hypercapnia (Acute) Acute metabolic encephalopathy Cachexia Acute and chronic respiratory failure SBO (small bowel obstruction) (Acute) Abdominal pain, acute, epigastric (Acute) Vomiting (Acute) Impacted cerumen of both ears No family history of adverse response to anesthesia Arthritis Left hip pain Discharge planning issues Depression (Chronic) Chronic prescription opiate use (Chronic) Gastroesophageal reflux disease (Chronic 10/13/10) CKD (chronic kidney disease), stage III (Chronic) Pulmonary hypertension (Chronic) 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) "s/p resection, chemo and radiation 10 yrs ago" Lumbar spinal stenosis (Chronic) Osteoporosis (Chronic) Hyponatremia (Acute) H/O splenectomy (Chronic) S/P cholecystectomy (Chronic) Hx of appendectomy (Chronic) Medical History Spasms of the hands or feet Hypercalcemia Hyperkalemia Hypercarbia Chronic respiratory failure with hypoxia, on home O2 therapy Encephalopathy Hyperlipidemia Stroke Bronchitis COPD (chronic obstructive pulmonary disease) Chronic pain syndrome (10/13/10) Surgical History History of tonsillectomy and adenoidectomy History of bladder surgery History of adrenal surgery History of hysterectomy History of lung surgery Family History Mother Glaucoma Father Cancer Lung cancer Other Allergies No family history of bleeding disorder Social History Smoking Status: Former smoker Tobacco Type: Cigarettes Cigarettes Per Day: 15; Smoking End Date: 2022; Second Hand Exposure: No; Do You Dip or Chew Tobacco: No; Hx Alcohol Use: Yes Alcohol type: wine Hx Substance Use: Yes Last Used Substance: Days (ago) Substance Use Type Other:: uses marijuana couples times a month with a vape Preferred Language: Turkmen Communication Ability: Unable Communication Ability Comment: Confused Visual Impairment: No Limitations Hearing Ability: Normal Concrete 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 Physical Exam . alert, receiving some breathing treatment. Right leg: +contracture and knee effusion, general tenderness to palpation around the knee, and knee pain with any attempted motion. Skin intact around the knee. Results & Data Results & Data Laboratory Results . Diagnostic Findings .xrays of the right knee shows a nondisplaced tibial plateau fracture and knee effusion. PG Care Time/CCT Total # of Minutes Spent Total Time Spent with Patient: Total time spent is greater than 50% in coordination of care (as documented) at patient's floor/unit and/or counseling patient: Coding Level of Care Code 35837 IN/OBS CONSULT LVL 3,45M Diagnoses Right medial tibial plateau fracture S82.131A
--- NOTE | 2024-07-28 14:39 | Hospitalist Progress Note ---
Date of Service July 28, 2024 Assessment & Plan (1) Acute exacerbation of chronic obstructive pulmonary disease: (2) Acute on chronic respiratory failure with hypoxia and hypercapnia: Plan This is an 84-year-old female with past medical history significant for COPD, chronic respiratory failure with hypoxia on 3.5 L oxygen at home, pulmonary hypertension, diastolic dysfunction, moderate mitral regurgitation, severe protein calorie malnutrition, GERD, congenital single kidney, osteoporosis, contracture of hand, thrombocytosis, lumbar spinal stenosis, history of lung cancer, history of splenectomy, history of CVA, history of CKD, hypertension, depression who presents to the ED 2/2 SOB. #Acute on Chronic Hypoxic and hypercapnic respiratory failure #Acute exacerbation of COPD #Acute on chronic respiratory acidosis -Patient presents to the hospital after a mechanical fall. She started to feel short of breath after the fall. At baseline patient is at 3 to 4 L of oxygen VBG on admission showed pH of 7.12 with pCO2 of 96 mmHg Patient was given Ativan for anxiety and was placed on BiPAP. Patient continued to be on BiPAP overnight; desaturates off BiPAP. Will switch inhalers to budesonide and formoterol nebs twice daily Continue on ceftriaxone and doxycycline; plan to treat for 5 days Continue on IV Solu-Medrol. Repeat ABG in a.m. showed improvement in the pH to 7.27. Pulmonology consulted for co-management given severe COPD requiring bipap. Discussed trial of opioid for air hunger with the patient's daughter over the phone given patient's respiratory distress; she is concerned about patient's history of opioid dependence and did not want opiates to be given. After further discussion; 0.5 mg of morphine given for pain control. Mechanical fall; Possible right intra-articular knee fracture Patient reported right knee pain; found to have moderate-sized effusion as well X-ray of the knee shows possible acute intra articular fracture; probable medial plateau fracture. Orthopedic consulted for comanagement continue tylenol as need for pain control Acute kidney injury Likely secondary to hypoxia, hypotension Creatinine up trended to 1.64; Will place Berry catheter Continue IV hydration Elevated high sensitive troponin Likely demand ischemia High sensitive troponin of 21.3 on admission; up trended to 65.5. Cycle troponin Obtain echocardiogram Suspect demand ischemia secondary to respiratory distress. Continue on aspirin, Lipitor H/O Hypercalcemia History of hyperparathyroidism Monitor calcium levels; Calcium wnl #History of lumbar spinal stenosis #Scoliosis Bilateral lower EXTR contractures #History of splenectomy Chronic thrombocytosis #Lung cancer S/p right upper lobectomy #History of CVA On aspirin and statin,continue #Depression Lexapro and Remeron,continue #DVT Px: Heparin SQ DNR/DNI PCP: Shannon Dispo: admit to PCU Discussed with patient's daughter at bedside and over the phone. Discussed goals of care; does not want opioids for comfort or air hunger; plan to continue current interventions. CODE STATUS is DNR/DNI Time spent evaluating patient, direct bedside care, chart review, placing orders, interpretation of diagnostic studies, discussion with consultants, patient, and family members, as well as other required patient management activities is 75 minutes Please note the above document was generated using voice recognition software. It may contain grammatical, syntax or spelling errors. Any formal questions or concerns about the content, text or information contained within the body of this dictation should be directly addressed to the provider for clarification Admission and Anticipated Discharge Date Admission Date: July 27, 2024 Subjective Patient seen couple of times in the morning Patient was on BiPAP; in significant respiratory distress. She was tired but awake and oriented to self and place. Reported pain on right knee Unable to tolerate being off BiPAP Review of Systems Review of Systems: Unobtainable due to cognitive status Physical Exam Physical Exam: Constitutional: In significant respiratory distress; on BiPAP. Oriented to self and place. Respiratory: Bilateral decreased air entry. Cardiovascular: RRR, no murmur, no edema Vessels: no JVD or carotid bruit Chest: normal inspection of chest Abdomen: normal bowel sounds, soft, nontender, no hepatosplenomegaly Musculoskeletal: Right knee swelling with painful ROM. Neurologic: Grossly moving all extremities. Results & Data Results & Data Vital Signs (Past 12 Hours) Vital Signs Temp Pulse Pulse Resp BP Pulse Ox O2 Del Method 07/28/24 14:13 100 H 07/28/24 11:54 BiPAP 07/28/24 11:15 37.2 C 104 H 25 H 144/85 H 92 BiPAP 07/28/24 10:40 106 H 39 H 96 07/28/24 10:40 106 H 39 H 50 L BiPAP 07/28/24 07:51 99 H 07/28/24 07:22 36.6 C 102 H 28 H 126/81 93 BiPAP 07/28/24 07:04 101 H 38 H 93 07/28/24 07:04 101 H 38 H 93 BiPAP 07/28/24 03:55 36.4 C L 102 H 20 115/68 95 BiPAP FiO2 07/28/24 14:13 07/28/24 11:54 45 07/28/24 11:15 45 07/28/24 10:40 45 07/28/24 10:40 07/28/24 07:51 07/28/24 07:22 07/28/24 07:04 50 07/28/24 07:04 50 07/28/24 03:55
--- NOTE | 2024-07-28 15:10 | Pulmonary Consultation ---
Date of Consultation July 28, 2024 Assessment & Plan (1) COPD exacerbation: Patient with acute COPD exacerbation secondary to severe acute pain related to right knee fracture leading to air trapping. Continue with methylprednisone 40 mg every 8 hours, nebulized ICS, nebulized LABA and nebulized Rabia/Citlali. Will add morphine 1 mg every 6 hours for air hunger and add a stat dose now. Patient's daughter is agreeable with this regimen and understands that her mother is approaching end-of-life care with respect to her chronic respiratory failure consequent from COPD. Patient has an extensive smoking history since the age of 14 and has smoked roughly 1 pack/day up until 2 years ago. (2) Respiratory acidosis: Continue with BiPAP therapy until tachypnea improved and mental status improved. Consider recheck ABG later this evening. Patient's daughter does adamantly indicate that she would want her mother to be a DNR/DNI in the event of a cardiopulmonary arrest and this is underlying with the patient's wishes. Patient's daughter indicates that the patient has significant anxiety associated with BiPAP and required a dose of Ativan before BiPAP was initiated. (3) Goals of care, counseling/discussion: As above, we (patient's daughter and myself) discussed patient's chronic respiratory disease and acute on chronic respiratory failure. Patient's daughter understands that her mother's disease appears to be progressing and she may require comfort measures if she continues to worsen. For the time being, we will proceed with low-dose morphine every 4 hours to help with air hunger on an as-needed basis. (4) Air hunger: Plan Thank you for the consult. Pulm will continue to follow with you. History of Present Illness Reason for Consultation: COPD exacerbation Attending Physician: Usman Dalton MD History of Present Illness 84-year-old female followed by [facility] pulmonary medicine for COPD and chronic hypoxemic respiratory failure requiring "3.75 L/min via nasal cannula of supplemental oxygen" per the patient's daughter who presented to the hospital with severe pain in her leg and shortness of breath. Patient sustained a fall yesterday on a hard bathroom floor that was witnessed by the patient's daughter. She had a right medial tibial plateau fracture and had worsening respiratory failure over the last 48 hours. Blood gases today revealed with acute hypercapnic respiratory failure and hypoxemia. Patient currently on BiPAP and complaining of severe dyspnea. She received 1/2 mg of morphine earlier today with some modest relief of her symptoms. Patient's daughter indicates that the patient wants to be a DNR/DNI in the event of a cardiopulmonary arrest and she is considering comfort measures only if her mother continues to have a decline in her condition. Patient is currently receiving ceftriaxone, doxycycline and methylprednisolone for COPD exacerbation. She is also receiving nebulized budesonide and formoterol along with DuoNebs every 4 hours. Chest x-ray yesterday revealed spiculated right hilar scarring and fibrotic changes with hyperinflated lung snow. Allergies Allergy/AdvReac Type Severity Reaction Status Date / Time levofloxacin [From Levaquin] Allergy Severe airway Verified 10/19/21 20:02 edema Penicillins Allergy Unknown hives Unverified 10/27/19 09:19 procaine Allergy Unknown SWELLING Verified 10/27/19 09:19 codeine AdvReac Unknown GI UPSET Unverified 10/27/19 09:19 lidocaine AdvReac Unknown Verified 10/19/21 20:03 Home Medications Medication Instructions Recorded Confirmed Type Bifidobacterium infantis 4 mg 4 mg PO DAILY 06/01/24 07/27/24 History capsule (Align (B.infantis)) albuterol sulfate 1.25 mg/3 mL 1.25 mg continuous nebulization 06/01/24 07/27/24 History solution for nebulization Q6H PRN Shortness Of Breath Or Wheezing aspirin 81 mg tablet,delayed 81 mg PO DAILY 06/01/24 07/27/24 History release atorvastatin 10 mg tablet 10 mg PO DAILY 06/01/24 07/27/24 History escitalopram oxalate 20 mg tablet 20 mg PO DAILY 06/01/24 07/27/24 History fluticasone fur. 100 mcg-umeclid 1 inh inhalation DAILY 06/01/24 07/27/24 History 62.5 mcg-vilant 25 mcg inhalat.powder (Trelegy Ellipta) wqetixrziby-helxjoroihb-qnf C-cori 2 tab PO DAILY 06/01/24 07/27/24 History 250 mg-200 mg-30 mg-2.5 mg tablet (Glucosamine-Chondroitin Complex) mirtazapine 7.5 mg tablet 7.5 mg PO HS 06/01/24 07/27/24 History vitamins A,C,F-xlvn-yrqifn 4,296 1 cap PO BID 06/01/24 07/27/24 History mcg-226 mg-90 mg capsule (PreserVision AREDS) amlodipine 5 mg tablet (Norvasc) 2.5 mg (1/2 x 5 mg) PO QAM #30 tabs 06/05/24 07/27/24 Rx Patient History Medical History (Updated 07/28/24 @ 15:10 by Fili Arnold MD) Spasms of the hands or feet Hypercalcemia Hyperkalemia Hypercarbia Chronic respiratory failure with hypoxia, on home O2 therapy Encephalopathy Hyperlipidemia Stroke Bronchitis COPD (chronic obstructive pulmonary disease) Chronic pain syndrome (10/13/10) Surgical History History of tonsillectomy and adenoidectomy History of bladder surgery History of adrenal surgery History of hysterectomy History of lung surgery Family History Mother Glaucoma Father Cancer Lung cancer Other Allergies No family history of bleeding disorder Social History Smoking Status: Former smoker Tobacco Type: Cigarettes Cigarettes Per Day: 15; Smoking End Date: 2022; Second Hand Exposure: No; Do You Dip or Chew Tobacco: No; Hx Alcohol Use: Yes Alcohol type: wine Hx Substance Use: Yes Last Used Substance: Days (ago) Substance Use Type Other:: uses marijuana couples times a month with a vape Preferred Language: Barbadian Communication Ability: Unable Communication Ability Comment: Confused Visual Impairment: No Limitations Hearing Ability: Normal Chlorine Cell Tender Required: No Beliefs That Will Affect Care: None Current Living Situation: Family Current Living Situation Comment: Lives with her daughter Corinna current occupational status: retired Other Information That Helps Us Care for You: No Feels Safe at Home: Yes Safety Concerns: Feels Safe At This Time Assistive Devices: Hospital Bed, Mechanical Lift, Oxygen - Continuous and Wheelchair Review of Systems Review of Systems: Review of systems is limited given the patient's dyspnea and BiPAP use. She does endorse severe anxiety, dyspnea and pain in her right knee. Physical Exam Physical Exam: Constitutional: Elderly and frail appearing female in moderate distress. BiPAP mask in place. Eyes: Pupils are equal round and reactive to light. Conjunctivae are normal. Anicteric sclera. Ears nose, mouth and throat: Mallampati class []. Normal posterior oropharynx. Uvula is midline. Neck: Trachea is midline. Visual inspection is normal. Respiratory: Diffuse expiratory wheezing with tachypnea. Prolonged phase of exhalation. Cardiovascular: Tachycardic, regular rhythm. No murmurs. No edema. Gastrointestinal: Normal bowel sounds, soft, nontender and nondistended. No hepatosplenomegaly noted. Musculoskeletal: No cyanosis. Patient is able to move all extremities. Strength is 5 out of 5 in the upper and lower extremities. Skin: No rashes, warm dry and intact. Neurologic: No obvious focal neurological deficits seen. Psychiatric: Anxious appearing. Results & Data Results & Data Vital Signs (Past 12 Hours) Vital Signs Temp Pulse Pulse Resp BP Pulse Ox O2 Del Method 07/28/24 14:13 100 H 07/28/24 11:54 BiPAP 07/28/24 11:15 37.2 C 104 H 25 H 144/85 H 92 BiPAP 07/28/24 10:40 106 H 39 H 96 07/28/24 10:40 106 H 39 H 50 L BiPAP 07/28/24 07:51 99 H 07/28/24 07:22 36.6 C 102 H 28 H 126/81 93 BiPAP 07/28/24 07:04 101 H 38 H 93 07/28/24 07:04 101 H 38 H 93 BiPAP 07/28/24 03:55 36.4 C L 102 H 20 115/68 95 BiPAP FiO2 07/28/24 14:13 07/28/24 11:54 45 07/28/24 11:15 45 07/28/24 10:40 45 07/28/24 10:40 07/28/24 07:51 07/28/24 07:22 07/28/24 07:04 50 07/28/24 07:04 50 07/28/24 03:55 PG Care Time/CCT Total # of Minutes Spent Total Time Spent with Patient: Total time spent is greater than 50% in coordination of care (as documented) at patient's floor/unit and/or counseling patient: Coding Level of Care Code 06039 INT INP/OBS CARE 2/55MIN Diagnoses COPD exacerbation J44.1 Respiratory acidosis E87.29 Goals of care, counseling/discussion Z71.89 Air hunger R09.89
[2024-07-28] MEDS ORDERED: Nursing to Pharmacy Communication SCH (17:00)
[2024-07-28] MEDS: INSULIN ASPART PER UNIT CHARGE SC SCH (18:16)
[2024-07-28] MEDS: MoRPHine SULFATE 2 MG/ML CARP IV PRN (18:40)
[2024-07-28 18:51] LABS: iSTAT Arterial Blood Gas HCO3 27 meg/L (19-24); iSTAT Arterial Blood Gas pCO2 47 mmHg (35-46); iSTAT Arterial Blood Gas pH 7.37 (7.35-7.45); iSTAT Arterial Blood Gas pO2 51 mmHg (80-95); iSTAT Carbon Dioxide 28 mmol/L (24-31); iSTAT Hematocrit 36 % (37-47); iSTAT Hemoglobin 12.2 g/dl (12.0-16.0); iSTAT Potassium 5.4 mmol/L (3.3-5.0); iSTAT Sodium 137 mmol/L (135-144)
[2024-07-29 06:29] LABS: Basophils # (auto) 0.03 K/uL (0.00-0.20); Basophils % (auto) 0.1 %; Hematocrit (blood only) 36.3 % (37.0-47.0); Hemoglobin 11.1 g/dl (12.0-16.0); Immature Granulocytes # (auto) 0.15 K/uL (0.01-0.20); Immature Granulocytes % (auto) 0.7 %; Lymphocytes # (auto) 1.33 K/uL (1.20-3.40); Lymphocytes % (auto) 6.5 %; Mean Corpuscular Hemoglobin 28.6 pg (25.0-34.0); Mean Corpuscular Hgb Conc 30.6 g/dL (32.0-36.0); Mean Corpuscular Volume 93.6 fL (80.0-100.0); Monocytes # (auto) 1.02 K/uL (0.11-0.59); Neutrophils # (auto) 17.99 K/uL (1.40-6.50); Neutrophils % (auto) 87.7 %; Platelet Count 321 K/uL (130-400); RDW Coefficient of Variation 14.6 % (11.5-14.5); RDW Standard Deviation 50.5 fL (36.4-46.3); Red Blood Count 3.88 M/uL (4.20-5.40); White Blood Count 20.52 K/ul (4.8-10.8)
[2024-07-29 06:55] LABS: BUN Creatinine Ratio 30.4 (10-20); Calcium 9.3 mg/dl (8.6-10.3); Creatinine Clr Calc Pharmacy 18.7 ml/min
[2024-07-29 07:03] LABS: Troponin I High Sensitivity 152.2 pg/ml (0-14)
--- NOTE | 2024-07-29 13:49 | Pulmonology Progress Note ---
Date of Service July 29, 2024 Assessment & Plan (1) COPD exacerbation: Plan: Patient with acute COPD exacerbation secondary to severe acute pain related to right knee fracture leading to air trapping. Continue with methylprednisone 40 mg every 8 hours, nebulized ICS, nebulized LABA and nebulized Rabia/Citlali. Increase IV morphine sulfate to 1 mg every 3 hours and probably will need a more aggressive regimen which I will defer to the primary team and palliative care medicine. It seems that the patient and the patient's daughter are willing to pursue hospice at this time and understand the gravity of the patient's acute illness. Patient has an extensive smoking history since the age of 14 and has smoked roughly 1 pack/day up until 2 years ago. (2) Respiratory acidosis: Plan: Continue with BiPAP therapy until tachypnea improved and mental status improved. Consider recheck ABG later this evening. Patient's daughter does adamantly indicate that she would want her mother to be a DNR/DNI in the event of a cardiopulmonary arrest and this is underlying with the patient's wishes. Patient's daughter indicates that the patient has significant anxiety associated with BiPAP and required a dose of Ativan before BiPAP was initiated. (3) Goals of care, counseling/discussion: Plan: As above, we (patient's daughter and myself) discussed patient's chronic respiratory disease and acute on chronic respiratory failure. Patient's daughter understands that her mother's disease appears to be progressing and perhaps the best approach to her mother's care at this time might be a hospice type approach. Palliative care consult pending. (4) Air hunger: Plan: As above, morphine sulfate 1 mg every 3 hours. Plan Please call with questions. Nothing further to add at this time. Happy to assist should the need arise. Thank you for the consult. Admission and Anticipated Discharge Date Admission Date: July 27, 2024 Subjective Patient continues to remain air hungry today and upon my evaluation was saturating in the low 80s on 5 L of nasal cannula and required to be put back on BiPAP. Patient's daughter is at bedside. He also gave 1 mg of IV morphine due to severe air hunger. I had a lengthy discussion with the patient's daughter regarding goals of care and again she reiterates that she feels that her mother is likely ready for hospice and she is interested in speaking with the palliative care provider. Review of Systems Review of Systems: All systems reviewed & are unremarkable except as noted in HPI & below Physical Exam Physical Exam: Constitutional: Elderly and frail appearing female in moderate distress. BiPAP mask in place. Eyes: Pupils are equal round and reactive to light. Conjunctivae are normal. Anicteric sclera. Ears nose, mouth and throat: Mallampati class on assess due to BiPAP use. Normal posterior oropharynx. Uvula is midline. Neck: Trachea is midline. Visual inspection is normal. Respiratory: Diffuse expiratory wheezing with tachypnea. Prolonged phase of exhalation. Cardiovascular: Tachycardic, regular rhythm. No murmurs. No edema. Gastrointestinal: Normal bowel sounds, soft, nontender and nondistended. No hepatosplenomegaly noted. Musculoskeletal: No cyanosis. Patient is able to move all extremities. Strength is 5 out of 5 in the upper and lower extremities. Skin: No rashes, warm dry and intact. Neurologic: No obvious focal neurological deficits seen. Psychiatric: Anxious appearing. Results & Data Results & Data Vital Signs (Past 12 Hours) Vital Signs Temp Pulse Pulse Resp BP Pulse Ox O2 Del Method 07/29/24 12:49 20 90 Nasal Cannula 07/29/24 11:31 BiPAP 07/29/24 11:03 36.6 C 99 H 20 128/69 99 BiPAP 07/29/24 10:24 100 H 27 H 96 BiPAP 07/29/24 10:23 100 H 27 H 96 07/29/24 07:44 36.7 C 112 H 18 169/73 H 95 BiPAP 07/29/24 07:29 106 H 07/29/24 06:59 109 H 36 H 95 07/29/24 06:59 109 H 36 H 95 BiPAP 07/29/24 03:18 107 H 36 H 94 07/29/24 03:18 107 H 35 H 94 BiPAP 07/29/24 03:01 36.3 C L 108 H 35 H 159/84 H 94 BiPAP O2 Flow Rate FiO2 07/29/24 12:49 5 07/29/24 11:31 07/29/24 11:03 07/29/24 10:24 45 07/29/24 10:23 45 07/29/24 07:44 95 07/29/24 07:29 07/29/24 06:59 50 07/29/24 06:59 50 07/29/24 03:18 50 07/29/24 03:18 50 07/29/24 03:01 PG Care Time/CCT Total # of Minutes Spent Total Time Spent with Patient: Total time spent is greater than 50% in coordination of care (as documented) at patient's floor/unit and/or counseling patient: Coding Level of Care Code 77352 SUB INP/OBS CARE 2/35MIN Diagnoses COPD exacerbation J44.1 Respiratory acidosis E87.29 Goals of care, counseling/discussion Z71.89 Air hunger R09.89
--- NOTE | 2024-07-29 16:09 | Hospitalist Progress Note ---
Date of Service July 29, 2024 Assessment & Plan (1) Acute exacerbation of chronic obstructive pulmonary disease: (2) Acute on chronic respiratory failure with hypoxia and hypercapnia: Plan 84-year-old female w/ PMH of COPD, chronic respiratory failure with hypoxia on 3.5 L oxygen at home, pulmonary hypertension, diastolic dysfunction, moderate mitral regurgitation, severe protein calorie malnutrition, GERD, congenital single kidney, osteoporosis, contracture of hand, thrombocytosis, lumbar spinal stenosis, history of lung cancer, history of splenectomy, history of CVA, history of CKD, hypertension, depression who presents to the ED 2/2 SOB. #Acute on Chronic Hypoxic and hypercapnic respiratory failure #Acute exacerbation of COPD #Acute on chronic respiratory acidosis Patient presents to the hospital after a mechanical fall. She started to feel short of breath after the fall. At baseline patient is at 3 to 4 L of oxygen VBG on admission showed pH of 7.12 with pCO2 of 96 mmHg Patient was given Ativan for anxiety and was placed on BiPAP. Patient continued to be on BiPAP; desaturates off BiPAP. c/w budesonide and formoterol nebs twice daily Continue on ceftriaxone and doxycycline; plan to treat for 5 days Continue on IV Solu-Medrol. Pulmonology consulted for co-management given severe COPD requiring bipap. Pt dtr aware of pt's poor prognosis and would like palliative on board. Palliative consult placed. Mechanical fall; Possible right intra-articular knee fracture Patient reported right knee pain; found to have moderate-sized effusion as well X-ray of the knee shows possible acute intra articular fracture; probable medial plateau fracture. Orthopedic consulted for comanagement, Recommends nonoperative management. Nonweightbearing on the right leg. Appreciate recs 4/. continue tylenol as need for pain control Acute kidney injury Likely secondary to hypoxia, hypotension Creatinine up trended to 1.64; baseline around 1, c/w ivf, labs in AM. Berry placed this admission, draining celina urine at bedside exam today. Elevated high sensitive troponin Likely demand ischemia High sensitive troponin of 21.3 on admission; up trended to 65.5. Cycle troponin Obtain echocardiogram - no RWMA, EF of > 70% Suspect demand ischemia secondary to respiratory distress. Continue on aspirin, Lipitor H/O Hypercalcemia History of hyperparathyroidism Monitor calcium levels; Calcium wnl History of lumbar spinal stenosis Scoliosis Bilateral lower EXTR contractures History of splenectomy Chronic thrombocytosis Lung cancer: S/p right upper lobectomy History of CVA: On aspirin and statin,continue Depression: Lexapro and Remeron,continue DVT Px:: Heparin SQ DNR/DNI PCP: Shannon Dispo: admit to PCU Please note the above document was generated using voice recognition software. It may contain grammatical, syntax or spelling errors. Any formal questions or concerns about the content, text or information contained within the body of this dictation should be directly addressed to the provider for clarification Admission and Anticipated Discharge Date Admission Date: July 27, 2024 Subjective Patient was seen and examined at bedside. Patient continues to remain air hungry, per RN patient gets relief with morphine, patient is needing BiPAP and desaturates on taking off of BiPAP, patient in general gets anxious on BiPAP. Patient has been n.p.o. due to continuous need for BiPAP, getting gentle IV fluid which we will continue for now. Patient's daughter was at bedside who also states that she is POA as well, she states she understands that her mother has poor prognosis and might get decompensated abruptly leading to demise. She would like palliative care on board, was communicated with palliative care team. Patient was oriented to self and place, reports pain on the right knee. . Physical Exam Physical Exam: Constitutional: In significant respiratory distress; on BiPAP. Oriented to self and place. Respiratory: Bilateral decreased air entry. Cardiovascular: RRR, no murmur, no edema Vessels: no JVD or carotid bruit Chest: normal inspection of chest Abdomen: normal bowel sounds, soft, nontender, no hepatosplenomegaly Musculoskeletal: Right knee swelling with painful ROM. Neurologic: Grossly moving all extremities. UC w/ celina urine collection noted in the bag. Results & Data Results & Data Vital Signs (Past 12 Hours) Vital Signs Temp Pulse Pulse Resp BP Pulse Ox O2 Del Method 07/29/24 14:53 36.7 C 105 H 20 134/75 92 BiPAP 07/29/24 14:43 101 H 27 H 96 07/29/24 14:43 101 H 27 H 96 BiPAP 07/29/24 12:49 20 90 Nasal Cannula 07/29/24 11:31 BiPAP 07/29/24 11:03 36.6 C 99 H 20 128/69 99 BiPAP 07/29/24 10:24 100 H 27 H 96 BiPAP 07/29/24 10:23 100 H 27 H 96 07/29/24 07:44 36.7 C 112 H 18 169/73 H 95 BiPAP 07/29/24 07:29 106 H 07/29/24 06:59 109 H 36 H 95 07/29/24 06:59 109 H 36 H 95 BiPAP O2 Flow Rate FiO2 07/29/24 14:53 07/29/24 14:43 40 07/29/24 14:43 45 07/29/24 12:49 5 07/29/24 11:31 07/29/24 11:03 07/29/24 10:24 45 07/29/24 10:23 45 07/29/24 07:44 95 07/29/24 07:29 07/29/24 06:59 50 07/29/24 06:59 50
[2024-07-29] MEDS: MoRPHine SULFATE 2 MG/ML CARP IV PRN (16:35)
--- NOTE | 2024-07-29 16:52 | Palliative Care Consultation ---
Date of Consultation July 29, 2024 Assessment & Plan (1) Palliative care by specialist: Met with pt at bedside, she is obtunded with increased WOB/tachypnea on Bipap. She was receiving a nebulizer treatment in conjunction with bipap for acute dyspnea. Pt arouses to aggressive tactile stimuli, answers yes/no at a whisper and drifts back to sleep. no visitors present. Pt does require a proxy for medical decisions. Patient exhibits current lack of decisional capacity based on the inability to convey understanding of personal PMHx, current medical condition, treatment options nor the risks / benefits of those options, and lack of ability to make decisions based on such knowledge. Hospital does not have written documentation of patient wishes concerning her chosen proxy for medical decisions. Per PA [id number], in absence of written documentation of patient wishes, pt's proxy for medical decisions would be her daughter. Also, Pt is known to this palliative provider and during previous admission she shared that her dtr Corinna is her chosen MDM proxy. (2) Counseling regarding goals of care: During previous admissions pt expressed that neither mechanical ventilation nor Bipap are consistent with her goals of care. She had shared knowledge of the progressively debilitating nature of COPD and that she would transition to comfort directed care if her life could not be supported adequately with HFNC. Pt was obtunded and on Bipap on my assessment. Attempt made to contact pt's daughter Corinna by phone, no answer, VM left. Will continue to attempt to contact pt's dtr Corinna by phone to address GOC. (per BSRN, dtr had left hospital in afternoon for a personal doctors appt.) Plan see above. Palliative care will continue to follow for ongoing gOC discussion and family support. History of Present Illness Reason for Consultation: goalsm of care Requesting Physician: Juan Vazquez MD Attending Physician: Juan Vazquez MD History of Present Illness Ms Jacob is 84y female known to palliative medicine from previous admission in May 2024. She has PMHx including COPD / CHRF requiring "3.75 L/min baseline supplemental oxygen" On 07/28 pt presented to the hospital with severe pain in her leg and shortness of breath after GLF on a hard bathroom floor that was witnessed by the patient's daughter. She was admitted for acute pain 2/2 right medial tibial plateau fracture and acute hypercapnic respiratory failure / hypoxemia requiring Bipap. Allergies Allergy/AdvReac Type Severity Reaction Status Date / Time levofloxacin [From Levaquin] Allergy Severe airway Verified 10/19/21 20:02 edema Penicillins Allergy Unknown hives Unverified 10/27/19 09:19 procaine Allergy Unknown SWELLING Verified 10/27/19 09:19 codeine AdvReac Unknown GI UPSET Unverified 10/27/19 09:19 lidocaine AdvReac Unknown Verified 10/19/21 20:03 Home Medications Medication Instructions Recorded Confirmed Type Bifidobacterium infantis 4 mg 4 mg PO DAILY 06/01/24 07/27/24 History capsule (Align (B.infantis)) albuterol sulfate 1.25 mg/3 mL 1.25 mg continuous nebulization 06/01/24 07/27/24 History solution for nebulization Q6H PRN Shortness Of Breath Or Wheezing aspirin 81 mg tablet,delayed 81 mg PO DAILY 06/01/24 07/27/24 History release atorvastatin 10 mg tablet 10 mg PO DAILY 06/01/24 07/27/24 History escitalopram oxalate 20 mg tablet 20 mg PO DAILY 06/01/24 07/27/24 History fluticasone fur. 100 mcg-umeclid 1 inh inhalation DAILY 06/01/24 07/27/24 History 62.5 mcg-vilant 25 mcg inhalat.powder (Trelegy Ellipta) weoefxdzpjw-dvxynklhyum-mxr C-cori 2 tab PO DAILY 06/01/24 07/27/24 History 250 mg-200 mg-30 mg-2.5 mg tablet (Glucosamine-Chondroitin Complex) mirtazapine 7.5 mg tablet 7.5 mg PO HS 06/01/24 07/27/24 History vitamins A,C,D-vklu-uovgvx 4,296 1 cap PO BID 06/01/24 07/27/24 History mcg-226 mg-90 mg capsule (PreserVision AREDS) amlodipine 5 mg tablet (Norvasc) 2.5 mg (1/2 x 5 mg) PO QAM #30 tabs 06/05/24 07/27/24 Rx Patient History Medical History (Updated 07/29/24 @ 17:16 by ANGELINE Mosley) Spasms of the hands or feet Hypercalcemia Hyperkalemia Hypercarbia Chronic respiratory failure with hypoxia, on home O2 therapy Encephalopathy Hyperlipidemia Stroke Bronchitis COPD (chronic obstructive pulmonary disease) Chronic pain syndrome (10/13/10) Surgical History History of tonsillectomy and adenoidectomy History of bladder surgery History of adrenal surgery History of hysterectomy History of lung surgery Family History Mother Glaucoma Father Cancer Lung cancer Other Allergies No family history of bleeding disorder Social History Smoking Status: Former smoker Tobacco Type: Cigarettes Cigarettes Per Day: 15; Smoking End Date: 2022; Second Hand Exposure: No; Do You Dip or Chew Tobacco: No; Hx Alcohol Use: Yes Alcohol type: wine Hx Substance Use: Yes Last Used Substance: Days (ago) Substance Use Type Other:: uses marijuana couples times a month with a vape Preferred Language: Amharic Communication Ability: Unable Communication Ability Comment: Confused Visual Impairment: No Limitations Hearing Ability: Normal Brush Filler Hand Required: No Beliefs That Will Affect Care: None Current Living Situation: Family Current Living Situation Comment: Lives with her daughter Corinna current occupational status: retired Other Information That Helps Us Care for You: No Feels Safe at Home: Yes Safety Concerns: Feels Safe At This Time Assistive Devices: Hospital Bed, Mechanical Lift, Oxygen - Continuous and Wheelchair Review of Systems Review of Systems: Unobtainable due to cognitive status Pt denies dyspnea/sob, on bipap Physical Exam Constitutional: well developed, + ill appearing, + thin and + frail appearing Eyes: PERRL, conjunctivae normal, anicteric sclerae ENMT: external ear and nose normal, oropharynx normal Mouth: + dry oral mucous membranes Respiratory: + labored breathing, + uses accessory mu scles, + tachypneic and + prolonged expiratory phase; + not able to speak in complete sentence Auscultation: + wheezes; no diminished lung sounds Cardiovascular: RRR, no murmur, no edema Gastrointestinal (Abdomen): normal bowel sounds, soft, nontender, no hepatosplenomegaly Skin: + turgor decreased and + dry skin Neurologic: moves all extremities, awake and + confused pt answering Qs with single word response, actively receiving breathing treatment via Bipap for dyspnea Results & Data Vital Signs (Past 12 Hours) Vital Signs Temp Pulse Pulse Resp BP Pulse Ox O2 Del Method 07/29/24 14:53 36.7 C 105 H 20 134/75 92 BiPAP 07/29/24 14:43 101 H 27 H 96 07/29/24 14:43 101 H 27 H 96 BiPAP 07/29/24 12:49 20 90 Nasal Cannula 07/29/24 11:31 BiPAP 07/29/24 11:03 36.6 C 99 H 20 128/69 99 BiPAP 07/29/24 10:24 100 H 27 H 96 BiPAP 07/29/24 10:23 100 H 27 H 96 07/29/24 07:44 36.7 C 112 H 18 169/73 H 95 BiPAP 07/29/24 07:29 106 H 07/29/24 06:59 109 H 36 H 95 07/29/24 06:59 109 H 36 H 95 BiPAP O2 Flow Rate FiO2 07/29/24 14:53 07/29/24 14:43 40 07/29/24 14:43 45 07/29/24 12:49 5 07/29/24 11:31 07/29/24 11:03 07/29/24 10:24 45 07/29/24 10:23 45 07/29/24 07:44 95 07/29/24 07:29 07/29/24 06:59 50 07/29/24 06:59 50 Laboratory Results Abnormal lab results 07/28/24 07/28/24 07/28/24 Range/Units 18:23 19:38 23:49 WBC (4.8-10.8) K/ul RBC (4.20-5.40) M/uL Hgb (12.0-16.0) g/dl Hct (37.0-47.0) % POC Hct 36 L (37-47) % MCHC (32.0-36.0) g/dL RDW Std Deviation (36.4-46.3) fL RDW Coeff of Lora (11.5-14.5) % Neut # (Auto) (1.40-6.50) K/uL [place] # (Auto) (0.11-0.59) K/uL POC pCO2 47 H (35-46) mmHg POC pO2 51 L (80-95) mmHg POC HCO3 27 H (19-24) abdiel/L POC ABG O2 Sat 84.0 L (90-95) % POC Potassium 5.4 H (3.3-5.0) mmol/L BUN (6-23) mg/dl Creatinine (0.6-1.2) mg/dl BUN/Creatinine Ratio (10-20) Glucose (70-99(Fasting)) mg/dl POC Glucose 142 H (70-99) mg/dl Troponin I High Sens 183.5 H* (0-14) pg/ml 07/29/24 07/29/24 07/29/24 Range/Units 01:19 06:05 06:16 WBC 20.52 H (4.8-10.8) K/ul RBC 3.88 L (4.20-5.40) M/uL Hgb 11.1 L (12.0-16.0) g/dl Hct 36.3 L (37.0-47.0) % POC Hct (37-47) % MCHC 30.6 L (32.0-36.0) g/dL RDW Std Deviation 50.5 H (36.4-46.3) fL RDW Coeff of Lora 14.6 H (11.5-14.5) % Neut # (Auto) 17.99 H (1.40-6.50) K/uL [place] # (Auto) 1.02 H (0.11-0.59) K/uL POC pCO2 (35-46) mmHg POC pO2 (80-95) mmHg POC HCO3 (19-24) abdiel/L POC ABG O2 Sat (90-95) % POC Potassium (3.3-5.0) mmol/L BUN 49 H (6-23) mg/dl Creatinine 1.61 H (0.6-1.2) mg/dl BUN/Creatinine Ratio 30.4 H (10-20) Glucose 135 H (70-99(Fasting)) mg/dl POC Glucose 124 H (70-99) mg/dl Troponin I High Sens 189.4 H* 152.2 H* (0-14) pg/ml 07/29/24 Range/Units 12:13 WBC (4.8-10.8) K/ul RBC (4.20-5.40) M/uL Hgb (12.0-16.0) g/dl Hct (37.0-47.0) % POC Hct (37-47) % MCHC (32.0-36.0) g/dL RDW Std Deviation (36.4-46.3) fL RDW Coeff of Lora (11.5-14.5) % Neut # (Auto) (1.40-6.50) K/uL [place] # (Auto) (0.11-0.59) K/uL POC pCO2 (35-46) mmHg POC pO2 (80-95) mmHg POC HCO3 (19-24) abdiel/L POC ABG O2 Sat (90-95) % POC Potassium (3.3-5.0) mmol/L BUN (6-23) mg/dl Creatinine (0.6-1.2) mg/dl BUN/Creatinine Ratio (10-20) Glucose (70-99(Fasting)) mg/dl POC Glucose 139 H (70-99) mg/dl Troponin I High Sens (0-14) pg/ml Diagnostic Findings Chest X-Ray 07/27/24 17:26 EXAM: Radiograph of the Chest 1 View INDICATION: Chest pain TECHNIQUE: Frontal view of the chest. COMPARISON: 06/01/2024 FINDINGS: Lungs and pleural spaces: Stable spiculated right hilar scarring and generalized fibrotic changes. No pleural effusion or pneumothorax. Heart: Shape and configuration within normal limits allowing for technique. Mediastinum: Normal contour. Bones/joints: Degenerative changes noted in the scoliotic spine. No acute osseous abnormality noted. Soft tissues: No abnormality noted. No radiopaque foreign body noted. Upper abdomen: No abnormality noted. IMPRESSION: Stable chronic changes. No acute disease. ACT 112: N/A Electronically signed by Zabrina Aguirre 07-27-2024 6:03 PM Knee X-Ray 07/28/24 11:06 XR knee RT 1 or 2V routine CLINICAL HISTORY: fall, rule out fracture COMPARISON: None FINDINGS: Osteopenia is noted. There is a moderate size joint effusion with lipohemarthrosis. There are moderate degenerative changes within the right knee, most pronounced within the patellofemoral compartment. There may be mild depression of the medial tibial plateau. There is cortical irregularity of the medial tibial plateau. IMPRESSION: Moderate size joint effusion with lipohemarthrosis suggestive of an acute intra- articular fracture. Probable medial tibial plateau fracture with minimal depression. A CT of the right knee could be obtained for further evaluation. ACT 112: Negative or not required by law. Electronically signed by: Yehuda Miller M.D. 07/28/2024 12:18 PM Medications Administered Current Inpatient Medications Acetaminophen (Acetaminophen 325 Mg Tab) 650 mg PO Q4H PRN PRN Reason: Pain or Fever Stop: 08/26/24 21:17 Al Hydrox/Mg Hydrox/Simethicone (Aluminum/Magnesium Susp 30 Ml Udc) 15 ml PO Q4H PRN PRN Reason: Dyspepsia Stop: 08/26/24 21:17 Albuterol (Albut/Ipratrop 3mg/0.5mg Neb 3 Ml Vial) 3 ml NEB Q4R SANCHEZ; Protocol Stop: 08/27/24 14:59 Last Admin: 07/29/24 14:43 Dose: 3 ml Amlodipine Besylate (Amlodipine Besylate 5 Mg Tab) 2.5 mg PO QAM SANCHEZ Stop: 08/27/24 08:59 Last Admin: 07/29/24 08:23 Dose: Not Given Aspirin (Aspirin 81 Mg Ectab) 81 mg PO DAILY SANCHEZ Stop: 08/27/24 08:59 Last Admin: 07/29/24 08:23 Dose: Not Given Atorvastatin Calcium (Atorvastatin 10 Mg Tab) 10 mg PO DAILY SANCHEZ Stop: 08/27/24 08:59 Last Admin: 07/29/24 08:23 Dose: Not Given Budesonide (Budesonide 0.5 Mg/2 Ml Vial (Pulmicort)) 0.5 mg NEB BIDR [facility], [facility]1983 Stop: 08/27/24 09:09 Last Admin: 07/29/24 06:59 Dose: 0.5 mg Dextrose (Dextrose 50% 50 Ml Syringe) 25 - 50 ml IV UD PRN; Protocol PRN Reason: Hypoglycemia Protocol Stop: 08/26/24 19:52 Escitalopram Oxalate (Escitalopram Oxalate 20 Mg Tab) 20 mg PO DAILY [facility] Stop: 08/27/24 08:59 Last Admin: 07/29/24 08:24 Dose: Not Given Formoterol Fumarate (Formoterol 20 Mcg/2 Ml Vial) 20 mcg NEB BIDR [facility]1983 Stop: 08/27/24 09:09 Last Admin: 07/29/24 06:59 Dose: 20 mcg Glucagon (Glucagon For Inj 1 Mg Vial) 1 mg SQ UD PRN; Protocol PRN Reason: Hypoglycemia Protocol Stop: 08/26/24 19:52 Glucose (Glucose 40% Gel 15 Gm Tube) 15 - 30 gm PO UD PRN; Protocol PRN Reason: Hypoglycemia Protocol Stop: 08/26/24 19:52 Glucose (Glucose 10 Tab/Tube) 4 - 8 tab PO UD PRN; Protocol PRN Reason: Hypoglycemia Protocol Stop: 08/26/24 19:52 Guaifenesin (Guaifenesin 600 Mg Tabcr) 1,200 mg PO Q12 SANCHEZ Stop: 08/26/24 21:17 Last Admin: 07/29/24 08:24 Dose: Not Given Heparin Sodium (Porcine) (Heparin Sod 5,000 Unit/0.5 Ml Vial) 5,000 units SQ Q12 SANCHEZ Stop: 08/26/24 21:17 Last Admin: 07/29/24 09:04 Dose: 5,000 units Sodium Chloride (Nss) 1,000 mls @ 80 mls/hr IV .[id number] [facility] Stop: 07/30/24 19:59 Last Admin: 07/29/24 08:59 Dose: 80 mls/hr Doxycycline Hyclate 100 mg/ (Dextrose) 100 mls @ 50 mls/hr IV Q12H [facility] Stop: 08/01/24 21:59 Last Infusion: 07/29/24 11:18 Dose: Infused Methylprednisolone 40 mg/ (Syringe) 0.64 mls @ 1.5 mls/min IV Q8H SANCHEZ Stop: 08/27/24 05:59 Last Admin: 07/29/24 16:26 Dose: 1.5 mls/min Acetaminophen (Ofirmev) 1,000 mg in 100 mls @ 400 mls/hr IV Q8H PRN PRN Reason: Pain or Fever Stop: 07/31/24 03:43 Last Infusion: 07/29/24 09:25 Dose: Infused Ceftriaxone Sodium (Rocephin) 2,000 mg in 50 mls @ 100 mls/hr IV Q24H [facility] Stop: 08/02/24 10:59 Last Infusion: 07/29/24 14:21 Dose: Infused Insulin Aspart (Insulin Aspart Per Unit Charge) 0 units SC Q6 SANCHEZ Stop: 08/27/24 17:59 Last Admin: 07/29/24 12:40 Dose: Not Given Mirtazapine (Mirtazapine Tab 15 Mg Tab) 7.5 mg PO HS SANCHEZ Stop: 08/26/24 21:17 Last Admin: 07/28/24 20:20 Dose: Not Given Miscellaneous (Carbohydrates For Hypoglycemia ) 15 - 30 gm PO UD PRN PRN Reason: Hypoglycemia Protocol Stop: 08/26/24 19:52 Morphine Sulfate (Morphine Sulfate 2 Mg/Ml Carp) 1 mg IV Q3H PRN PRN Reason: air hunger/dyspnea Stop: 08/11/24 14:58 Last Admin: 07/29/24 16:35 Dose: 1 mg Ondansetron HCl (Ondansetron Inj 2 Mg/Ml 2 Ml Vial) 4 mg IV Q6H PRN PRN Reason: Nausea Stop: 08/26/24 21:17 Oxycodone HCl (Oxycodone Hcl Ir 5 Mg Tab (Immediate Release)) 5 mg PO Q6H PRN PRN Reason: Moderate Pain (Scale 4, 5, 6) Stop: 08/12/24 12:58 Polyethylene Glycol (Polyethylene (Miralax) 17 Gm Pack) 17 gm PO DAILY PRN PRN Reason: Constipation Stop: 08/26/24 21:17 Trolamine Salicylate (Trolamine Salicylate 10% Crm 255 Appln/85 Gm Tube) 1 appln EXT BID [facility], [facility] Stop: 08/26/24 21:17 Last Admin: 07/29/24 08:59 Dose: 1 appln PG Care Time/CCT Total # of Minutes Spent Total Time Spent with Patient: Total time spent is greater than 50% in coordination of care (as documented) at patient's floor/unit and/or counseling patient: [place] [address] INT INP/OBS CARE 1/40MIN Patient Type Established History Problem Focused Exam Problem Focused Medical Decision Making Low Complexity Diagnoses Palliative care by specialist Z51.5 Counseling regarding goals of care Z71.89
[2024-07-30 06:11] LABS: Hematocrit (blood only) 34.8 % (37.0-47.0); Hemoglobin 10.6 g/dl (12.0-16.0); Mean Corpuscular Hemoglobin 28.6 pg (25.0-34.0); Mean Corpuscular Hgb Conc 30.5 g/dL (32.0-36.0); Mean Corpuscular Volume 93.8 fL (80.0-100.0); Platelet Count 318 K/uL (130-400); RDW Coefficient of Variation 14.6 % (11.5-14.5); RDW Standard Deviation 50.4 fL (36.4-46.3); Red Blood Count 3.71 M/uL (4.20-5.40); White Blood Count 17.37 K/ul (4.8-10.8)
[2024-07-30 06:38] LABS: BUN Creatinine Ratio 42.9 (10-20); Calcium 9.6 mg/dl (8.6-10.3); Creatinine Clr Calc Pharmacy 25.9 ml/min; Magnesium 2.2 mg/dl (1.7-2.4); Phosphorus 3.8 mg/dl (2.5-4.9); Potassium 5.1 mmol/L (3.5-5.1)
--- NOTE | 2024-07-30 13:51 | Palliative Care Progress Note ---
Date of Service July 30, 2024 Assessment & Plan (1) Palliative care by specialist: Plan: Palliative care will continue to follow for ongoing GOC discussion and family support. (2) Counseling regarding goals of care: Plan: GOC meeting scheduled for 07/31/24 at 11am. Plan as above Admission and Anticipated Discharge Date Admission Date: July 27, 2024 Subjective Patient was seen and examined at bedside. She remains Bipap dependent requires frequent morphine air hunger. She was oriented to person only and BSRN reports pt speaking in her [place] language with family members who have . No visito rs at [facility], I was able to reach her daughter by phone today. GOC meeting scheduled for 07/31/24 at 11am. Review of Systems Review of Systems: Unobtainable due to cognitive status Physical Exam Constitutional: well developed, + ill appearing, + thin and + frail appearing Eyes: PERRL, conjunctivae normal, anicteric sclerae ENMT: external ear and nose normal, oropharynx normal Mouth: + dry oral mucous membranes Respiratory: + labored breathing, + uses accessory mu scles, + tachypneic and + prolonged expiratory phase; + not able to speak in complete sentence Auscultation: + wheezes; no diminished lung sounds Cardiovascular: RRR, no murmur, no edema Gastrointestinal (Abdomen): normal bowel sounds, soft, nontender, no hepatosplenomegaly Skin: + turgor decreased and + dry skin Neurologic: moves all extremities, awake and + confused pt answering Qs with single word response, actively receiving breathing treatment via Bipap for dyspnea Results & Data Vital Signs (Past 12 Hours) Vital Signs Temp Pulse Pulse Resp BP BP Pulse Ox 07/30/24 12:00 36.6 C 16 167/85 H 96 07/30/24 11:20 104 H 34 H 07/30/24 11:20 104 H 34 H 07/30/24 10:56 07/30/24 08:00 36.6 C 118 H 18 170/96 H 07/30/24 07:22 104 H 26 H 07/30/24 07:22 104 H 26 H 07/30/24 07:13 111 H 07/30/24 03:28 36.5 C 112 H 20 180/65 H 93 07/30/24 03:22 106 H 35 H 07/30/24 03:22 106 H 35 H 95 O2 Del Method FiO2 07/30/24 12:00 BiPAP 07/30/24 11:20 40 07/30/24 11:20 BiPAP 40 07/30/24 10:56 BiPAP 45 07/30/24 08:00 BiPAP 07/30/24 07:22 40 07/30/24 07:22 BiPAP 42 07/30/24 07:13 07/30/24 03:28 BiPAP 07/30/24 03:22 45 07/30/24 03:22 BiPAP 45 Laboratory Results Abnormal lab results 07/30/24 07/30/24 07/30/24 Range/Units 00:23 05:51 06:04 WBC 17.37 H (4.8-10.8) K/ul RBC 3.71 L (4.20-5.40) M/uL Hgb 10.6 L (12.0-16.0) g/dl Hct 34.8 L (37.0-47.0) % MCHC 30.5 L (32.0-36.0) g/dL RDW Std Deviation 50.4 H (36.4-46.3) fL RDW Coeff of Lora 14.6 H (11.5-14.5) % Chloride 111 H (98-107) mmol/L BUN 54 H (6-23) mg/dl Creatinine 1.26 H D (0.6-1.2) mg/dl BUN/Creatinine Ratio 42.9 H (10-20) Glucose 130 H (70-99(Fasting)) mg/dl POC Glucose 157 H 133 H (70-99) mg/dl 07/30/24 07/30/24 Range/Units 12:01 17:28 WBC (4.8-10.8) K/ul RBC (4.20-5.40) M/uL Hgb (12.0-16.0) g/dl Hct (37.0-47.0) % MCHC (32.0-36.0) g/dL RDW Std Deviation (36.4-46.3) fL RDW Coeff of Lora (11.5-14.5) % Chloride (98-107) mmol/L BUN (6-23) mg/dl Creatinine (0.6-1.2) mg/dl BUN/Creatinine Ratio (10-20) Glucose (70-99(Fasting)) mg/dl POC Glucose 163 H 153 H (70-99) mg/dl Diagnostic Findings Chest X-Ray 07/27/24 17:26 EXAM: Radiograph of the Chest 1 View INDICATION: Chest pain TECHNIQUE: Frontal view of the chest. COMPARISON: 06/01/2024 FINDINGS: Lungs and pleural spaces: Stable spiculated right hilar scarring and generalized fibrotic changes. No pleural effusion or pneumothorax. Heart: Shape and configuration within normal limits allowing for technique. Mediastinum: Normal contour. Bones/joints: Degenerative changes noted in the scoliotic spine. No acute osseous abnormality noted. Soft tissues: No abnormality noted. No radiopaque foreign body noted. Upper abdomen: No abnormality noted. IMPRESSION: Stable chronic changes. No acute disease. ACT 112: N/A Electronically signed by Zabrina Aguirre 07-27-2024 6:03 PM Knee X-Ray 07/28/24 11:06 XR knee RT 1 or 2V routine CLINICAL HISTORY: fall, rule out fracture COMPARISON: None FINDINGS: Osteopenia is noted. There is a moderate size joint effusion with lipohemarthrosis. There are moderate degenerative changes within the right knee, most pronounced within the patellofemoral compartment. There may be mild depression of the medial tibial plateau. There is cortical irregularity of the medial tibial plateau. IMPRESSION: Moderate size joint effusion with lipohemarthrosis suggestive of an acute intra- articular fracture. Probable medial tibial plateau fracture with minimal depression. A CT of the right knee could be obtained for further evaluation. ACT 112: Negative or not required by law. Electronically signed by: Yehuda Miller M.D. 07/28/2024 12:18 PM Medications Administered Current Inpatient Medications Acetaminophen (Acetaminophen 325 Mg Tab) 650 mg PO Q4H PRN PRN Reason: Pain or Fever Stop: 08/26/24 21:17 Al Hydrox/Mg Hydrox/Simethicone (Aluminum/Magnesium Susp 30 Ml Udc) 15 ml PO Q4H PRN PRN Reason: Dyspepsia Stop: 08/26/24 21:17 Albuterol (Albut/Ipratrop 3mg/0.5mg Neb 3 Ml Vial) 3 ml NEB Q4R SANCHEZ; Protocol Stop: 08/27/24 14:59 Last Admin: 07/30/24 20:11 Dose: Not Given Amlodipine Besylate (Amlodipine Besylate 5 Mg Tab) 2.5 mg PO QAM [facility] Stop: 08/27/24 08:59 Last Admin: 07/30/24 08:45 Dose: Not Given Aspirin (Aspirin 81 Mg Ectab) 81 mg PO DAILY SANCHEZ Stop: 08/27/24 08:59 Last Admin: 07/30/24 08:45 Dose: Not Given Atorvastatin Calcium (Atorvastatin 10 Mg Tab) 10 mg PO DAILY SANCHEZ Stop: 08/27/24 08:59 Last Admin: 07/30/24 08:45 Dose: Not Given Budesonide (Budesonide 0.5 Mg/2 Ml Vial (Pulmicort)) 0.5 mg NEB BIDR [facility] Stop: 08/27/24 09:09 Last Admin: 07/30/24 20:10 Dose: 0.5 mg Dextrose (Dextrose 50% 50 Ml Syringe) 25 - 50 ml IV UD PRN; Protocol PRN Reason: Hypoglycemia Protocol Stop: 08/26/24 19:52 Escitalopram Oxalate (Escitalopram Oxalate 20 Mg Tab) 20 mg PO DAILY SANCHEZ Stop: 08/27/24 08:59 Last Admin: 07/30/24 08:45 Dose: Not Given Formoterol Fumarate (Formoterol 20 Mcg/2 Ml Vial) 20 mcg NEB BIDR [facility] Stop: 08/27/24 09:09 Last Admin: 07/30/24 20:10 Dose: 20 mcg Glucagon (Glucagon For Inj 1 Mg Vial) 1 mg SQ UD PRN; Protocol PRN Reason: Hypoglycemia Protocol Stop: 08/26/24 19:52 Glucose (Glucose 40% Gel 15 Gm Tube) 15 - 30 gm PO UD PRN; Protocol PRN Reason: Hypoglycemia Protocol Stop: 08/26/24 19:52 Glucose (Glucose 10 Tab/Tube) 4 - 8 tab PO UD PRN; Protocol PRN Reason: Hypoglycemia Protocol Stop: 08/26/24 19:52 Guaifenesin (Guaifenesin 600 Mg Tabcr) 1,200 mg PO Q12 SANCHEZ Stop: 08/26/24 21:17 Last Admin: 07/30/24 20:08 Dose: Not Given Heparin Sodium (Porcine) (Heparin Sod 5,000 Unit/0.5 Ml Vial) 5,000 units SQ Q12 SANCHEZ Stop: 08/26/24 21:17 Last Admin: 07/30/24 21:10 Dose: 5,000 units Doxycycline Hyclate 100 mg/ (Dextrose) 100 mls @ 50 mls/hr IV Q12H [facility] Stop: 08/01/24 21:59 Last Admin: 07/30/24 21:11 Dose: 50 mls/hr Methylprednisolone 40 mg/ (Syringe) 0.64 mls @ 1.5 mls/min IV Q8H SANCHEZ Stop: 08/27/24 05:59 Last Admin: 07/30/24 21:11 Dose: 1.5 mls/min Acetaminophen (Ofirmev) 1,000 mg in 100 mls @ 400 mls/hr IV Q8H PRN PRN Reason: Pain or Fever Stop: 07/31/24 03:43 Last Infusion: 07/30/24 10:32 Dose: Infused Ceftriaxone Sodium (Rocephin) 2,000 mg in 50 mls @ 100 mls/hr IV Q24H [facility] Stop: 08/02/24 10:59 Last Infusion: 07/30/24 12:14 Dose: Infused Dextrose/Sodium Chloride (D5w And 1/2nss) 1,000 mls @ 80 mls/hr IV .[id number] [facility] Stop: 07/31/24 16:59 Last Admin: 07/30/24 16:56 Dose: 80 mls/hr Insulin Aspart (Insulin Aspart Per Unit Charge) 0 units SC Q6 SANCHEZ Stop: 08/27/24 17:59 Last Admin: 07/30/24 17:32 Dose: Not Given Mirtazapine (Mirtazapine Tab 15 Mg Tab) 7.5 mg PO HS [facility] Stop: 08/26/24 21:17 Last Admin: 07/30/24 20:08 Dose: Not Given Miscellaneous (Carbohydrates For Hypoglycemia ) 15 - 30 gm PO UD PRN PRN Reason: Hypoglycemia Protocol Stop: 08/26/24 19:52 Morphine Sulfate (Morphine Sulfate 2 Mg/Ml Carp) 1 mg IV Q3H PRN PRN Reason: air hunger/dyspnea Stop: 08/11/24 14:58 Last Admin: 07/30/24 21:22 Dose: 1 mg Ondansetron HCl (Ondansetron Inj 2 Mg/Ml 2 Ml Vial) 4 mg IV Q6H PRN PRN Reason: Nausea Stop: 08/26/24 21:17 Oxycodone HCl (Oxycodone Hcl Ir 5 Mg Tab (Immediate Release)) 5 mg PO Q6H PRN PRN Reason: Moderate Pain (Scale 4, 5, 6) Stop: 08/12/24 12:58 Polyethylene Glycol (Polyethylene (Miralax) 17 Gm Pack) 17 gm PO DAILY PRN PRN Reason: Constipation Stop: 08/26/24 21:17 Trolamine Salicylate (Trolamine Salicylate 10% Crm 255 Appln/85 Gm Tube) 1 appln EXT BID SANCHEZ Stop: 08/26/24 21:17 Last Admin: 07/30/24 21:12 Dose: 1 appln PG Care Time/CCT Total # of Minutes Spent Total Time Spent with Patient: Total time spent is greater than 50% in coordination of care (as documented) at patient's floor/unit and/or counseling patient: Coding [place] [address] SUB INP/OBS CARE 05/23MIN Patient Type Established History Problem Focused Exam Problem Focused Medical Decision Making Straight Forward Diagnoses Palliative care by specialist Z51.5 Counseling regarding goals of care Z71.89
--- NOTE | 2024-07-30 16:01 | Hospitalist Progress Note ---
Date of Service July 30, 2024 Assessment & Plan (1) Acute exacerbation of chronic obstructive pulmonary disease: (2) Acute on chronic respiratory failure with hypoxia and hypercapnia: Plan 84-year-old female w/ PMH of COPD, chronic respiratory failure with hypoxia on 3.5 L oxygen at home, pulmonary hypertension, diastolic dysfunction, moderate mitral regurgitation, severe protein calorie malnutrition, GERD, congenital single kidney, osteoporosis, contracture of hand, thrombocytosis, lumbar spinal stenosis, history of lung cancer, history of splenectomy, history of CVA, history of CKD, hypertension, depression who presents to the ED 2/2 SOB. #Acute on Chronic Hypoxic and hypercapnic respiratory failure #Acute exacerbation of COPD #Acute on chronic respiratory acidosis Patient presents to the hospital after a mechanical fall. She started to feel short of breath after the fall. At baseline patient is at 3 to 4 L of oxygen VBG on admission showed pH of 7.12 with pCO2 of 96 mmHg Patient was given Ativan for anxiety and was placed on BiPAP. Patient continued to be on BiPAP; desaturates off BiPAP. c/w budesonide and formoterol nebs twice daily Continue on ceftriaxone and doxycycline; plan to treat for 5 days Continue on IV Solu-Medrol. Pulmonology consulted for co-management given severe COPD requiring bipap. Pt needing morphine freq for air hunger. Pt dtr aware of pt's poor prognosis, palliative on board, will follow. Mechanical fall; Possible right intra-articular knee fracture Patient reported right knee pain; found to have moderate-sized effusion as well X-ray of the knee shows possible acute intra articular fracture; probable medial plateau fracture. Orthopedic consulted for comanagement, Recommends nonoperative management. Nonweightbearing on the right leg. Appreciate recs 4/. continue tylenol as need for pain control Acute kidney injury Likely secondary to hypoxia, hypotension Creatinine up trended to 1.64; baseline around 1, c/w ivf, labs in AM. Berry placed this admission, draining celina urine at bedside exam today. c/w ivf as pt npo due to bpap dependency and ams Elevated high sensitive troponin Likely demand ischemia High sensitive troponin of 21.3 on admission; up trended to 65.5. Cycle troponin Obtain echocardiogram - no RWMA, EF of > 70% Suspect demand ischemia secondary to respiratory distress. Continue on aspirin, Lipitor H/O Hypercalcemia History of hyperparathyroidism Monitor calcium levels; Calcium wnl History of lumbar spinal stenosis Scoliosis Bilateral lower EXTR contractures History of splenectomy Chronic thrombocytosis Lung cancer: S/p right upper lobectomy History of CVA: On aspirin and statin,continue Depression: Lexapro and Remeron,continue DVT Px:: Heparin SQ DNR/DNI PCP: Shannon Dispo: admit to PCU, poor prognosis, palliative on board. Please note the above document was generated using voice recognition software. It may contain grammatical, syntax or spelling errors. Any formal questions or concerns about the content, text or information contained within the body of this dictation should be directly addressed to the provider for clarification Admission and Anticipated Discharge Date Admission Date: July 27, 2024 Subjective Patient was seen and examined at bedside. Patient continues to remain air hungry, per RN patient gets relief with morphine, patient is needing BiPAP and desaturates on taking off of BiPAP, patient in general gets anxious on BiPAP. Has been needing frequent morphine. Has not been able to take PO due to being BPAP dependent. c/w gentle ivf today. Physical Exam Physical Exam: Constitutional: on BiPAP. appears more confused and withdrawn today. Respiratory: Bilateral decreased air entry. Cardiovascular: RRR, no murmur, no edema Vessels: no JVD or carotid bruit Chest: normal inspection of chest Abdomen: normal bowel sounds, soft, nontender, no hepatosplenomegaly Musculoskeletal: Right knee swelling with painful ROM. Neurologic: Grossly moving all extremities. UC w/ celina urine collection noted in the bag. Results & Data Results & Data Vital Signs (Past 12 Hours) Vital Signs Temp Pulse Pulse Resp BP Pulse Ox O2 Del Method 07/30/24 15:15 112 H 36 H 90 07/30/24 15:15 112 H 36 H BiPAP 07/30/24 14:05 115 H 07/30/24 12:00 36.6 C 16 167/85 H 96 BiPAP 07/30/24 11:20 104 H 34 H 95 07/30/24 11:20 104 H 34 H 95 BiPAP 07/30/24 10:56 BiPAP 07/30/24 08:00 36.6 C 118 H 18 170/96 H 95 BiPAP 07/30/24 07:22 104 H 26 H 95 07/30/24 07:22 104 H 26 H 95 BiPAP 07/30/24 07:13 111 H O2 Flow Rate FiO2 07/30/24 15:15 40 07/30/24 15:15 40 07/30/24 14:05 07/30/24 12:00 07/30/24 11:20 40 07/30/24 11:20 40 07/30/24 10:56 45 07/30/24 08:00 07/30/24 07:22 40 07/30/24 07:22 42 07/30/24 07:13
[2024-07-30] MEDS: D5W AND 1/2NSS 1,000 ML IV SCH (16:56)
[2024-07-31] MEDS ORDERED: methylPREDNISolone 40 MG in SYRINGE 0 ML IV ONE (04:03)
[2024-07-31] MEDS: OLANZapine 10 MG/2.1 ML SDV IM STA (04:03)
[2024-07-31] MEDS: HYDROmorphone INJ 0.5 MG/0.5 ML SYR IV STA (04:11)
[2024-07-31] MEDS: METOPROLOL TARTRATE 1 MG/ML VIAL IV STA (04:12)
[2024-07-31 04:36] LABS: Base Excess VBG -0.4 mEq/L; HCO3 VBG 27 mmol/L; Oxygen Saturation VBG 93.8 %; PCO2 VBG 53 mmHg (38-50); PO2 VBG 61 mmHg; pH VBG 7.31 (7.36-7.41)
[2024-07-31 04:57] LABS: Hematocrit (blood only) 33.9 % (37.0-47.0); Hemoglobin 10.4 g/dl (12.0-16.0); Mean Corpuscular Hemoglobin 28.4 pg (25.0-34.0); Mean Corpuscular Hgb Conc 30.7 g/dL (32.0-36.0); Mean Corpuscular Volume 92.6 fL (80.0-100.0); Nucleated RBC # (auto) 0.06 K/uL (0.00-0.12); Nucleated RBC % (auto) 0.5 %; Platelet Count 308 K/uL (130-400); RDW Coefficient of Variation 14.7 % (11.5-14.5); RDW Standard Deviation 50.8 fL (36.4-46.3); Red Blood Count 3.66 M/uL (4.20-5.40); White Blood Count 11.71 K/ul (4.8-10.8)
[2024-07-31 05:04] LABS: BUN Creatinine Ratio 43.1 (10-20); Calcium 9.8 mg/dl (8.6-10.3); Creatinine Clr Calc Pharmacy 29.9 ml/min; Magnesium 2.2 mg/dl (1.7-2.4); Phosphorus 2.6 mg/dl (2.5-4.9); Potassium 4.5 mmol/L (3.5-5.1)
--- NOTE | 2024-07-31 05:16 | XRay Report ---
EXAM: XR chest 1V portable CLINICAL HISTORY: sob. TECHNIQUE: An X-ray image of the chest is obtained in AP projection. COMPARISON: 07/27/2024 XR chest. FINDINGS: Lungs and pleural spaces: Prominent bilateral bronchovascular markings. These could probably represent early/mild inflammatory/infectious etiology. A mild inhomogeneous haziness is noted in the right lower zone, suggesting a possible developing infiltrate or atelectasis. No pleural effusion or pneumothorax. Heart: Shape and configuration within normal limits. Mediastinum: Normal contour. Bones/joints: Scoliosis of the thoracic spine to the left side. Arthritic changes of the left glenohumeral and acromioclavicular joints. Soft tissues: No abnormality noted. No radiopaque foreign body noted. IMPRESSION: 1. Prominent bilateral bronchovascular markings. These could probably represent early/mild inflammatory/infectious etiology. Stable. 2. A mild inhomogeneous haziness is noted in the right lower zone, suggesting a possible developing infiltrate or atelectasis. Stable. 3. Left lower lobe infiltrate or atelectasis. New finding. 4. Further evaluation with CT is recommended if clinically needed. Electronically signed by Suleiman Little 07-31-2024 05:16 AM
[2024-07-31] MEDS: LEVALBUTEROL 1.25 MG/3 ML NEB NEB SCH (07:45)
[2024-07-31] MEDS: IPRATROPIUM BROMIDE NEB SOLN 0.02% 0.5MG/2.5ML VIAL INH SCH (07:45)
[2024-07-31 08:17] LABS: Base Excess VBG -0.6 mEq/L; HCO3 VBG 28 mmol/L; Oxygen Saturation VBG 90.9 %; PCO2 VBG 64 mmHg (38-50); PO2 VBG 60 mmHg; pH VBG 7.25 (7.36-7.41)
[2024-07-31] MEDS ORDERED: methylPREDNISolone 40 MG in SYRINGE 0 ML IV SCH (14:00)
--- NOTE | 2024-07-31 16:56 | Hospitalist Progress Note ---
Date of Service July 31, 2024 Assessment & Plan (1) Acute exacerbation of chronic obstructive pulmonary disease: (2) Acute on chronic respiratory failure with hypoxia and hypercapnia: Plan 84-year-old female w/ PMH of COPD, chronic respiratory failure with hypoxia on 3.5 L oxygen at home, pulmonary hypertension, diastolic dysfunction, moderate mitral regurgitation, severe protein calorie malnutrition, GERD, congenital single kidney, osteoporosis, contracture of hand, thrombocytosis, lumbar spinal stenosis, history of lung cancer, history of splenectomy, history of CVA, history of CKD, hypertension, depression who presents to the ED 2/2 SOB. #Acute on Chronic Hypoxic and hypercapnic respiratory failure #Acute exacerbation of COPD #Acute on chronic respiratory acidosis Patient presents to the hospital after a mechanical fall. She started to feel short of breath after the fall. At baseline patient is at 3 to 4 L of oxygen VBG on admission showed pH of 7.12 with pCO2 of 96 mmHg Patient was given Ativan for anxiety and was placed on BiPAP. Patient continued to be on BiPAP; desaturates off BiPAP. c/w budesonide and formoterol nebs twice daily Continue on ceftriaxone and doxycycline; plan to treat for 5 days Continue on IV Solu-Medrol. Pulmonology consulted for co-management given severe COPD requiring bipap. Pt needing morphine freq for air hunger. Pt dtr aware of pt's poor prognosis, palliative on board. D/w Palliative, pt's dtr would like to continue current care w/ morphine use and BPAP for family members to be able to meet her over the weekend, if pt were to decompensate then inform the dtr and possibly convert the patient to comfort care. Mechanical fall; Possible right intra-articular knee fracture Patient reported right knee pain; found to have moderate-sized effusion as well X-ray of the knee shows possible acute intra articular fracture; probable medial plateau fracture. Orthopedic consulted for comanagement, Recommends nonoperative management. Nonweightbearing on the right leg. Appreciate recs 4/. continue tylenol as need for pain control Acute kidney injury Likely secondary to hypoxia, hypotension Creatinine up trended to 1.64; baseline around 1, c/w ivf, labs in AM. Berry placed this admission, draining celina urine at bedside exam today. c/w ivf as pt npo due to bpap dependency and ams. Cr resolved. Elevated high sensitive troponin Likely demand ischemia High sensitive troponin of 21.3 on admission; up trended to 65.5. Cycle troponin Obtain echocardiogram - no RWMA, EF of > 70% Suspect demand ischemia secondary to respiratory distress. Continue on aspirin, Lipitor H/O Hypercalcemia History of hyperparathyroidism Monitor calcium levels; Calcium wnl History of lumbar spinal stenosis Scoliosis Bilateral lower EXTR contractures History of splenectomy Chronic thrombocytosis Lung cancer: S/p right upper lobectomy History of CVA: On aspirin and statin,continue Depression: Lexapro and Remeron,continue DVT Px:: Heparin SQ DNR/DNI PCP: Shannon Dispo: admit to PCU, poor prognosis, palliative on board. Please note the above document was generated using voice recognition software. It may contain grammatical, syntax or spelling errors. Any formal questions or concerns about the content, text or information contained within the body of this dictation should be directly addressed to the provider for clarification Admission and Anticipated Discharge Date Admission Date: July 27, 2024 Subjective Patient was seen and examined at bedside. Patient continues to remain air hungry, relieved with morphine, patient is needing BiPAP and desaturates on taking off of BiPAP, patient in general gets anxious on BiPAP. Has been needing frequent morphine. Has not been able to take PO due to being BPAP dependent. c/w gentle ivf w/ dextrose. Physical Exam Physical Exam: Constitutional: on BiPAP. confused Respiratory: Bilateral decreased air entry. Cardiovascular: RRR, no murmur, no edema Vessels: no JVD or carotid bruit Chest: normal inspection of chest Abdomen: normal bowel sounds, soft, nontender, no hepatosplenomegaly Musculoskeletal: Right knee swelling with painful ROM. Neurologic: Grossly moving all extremities. UC w/ celina urine collection noted in the bag. Results & Data Results & Data Vital Signs (Past 12 Hours) Vital Signs Temp Pulse Pulse Resp BP BP BP 07/31/24 16:18 111 H 26 H 165/97 H 07/31/24 15:49 37.3 C 69 20 197/97 H 197/102 H 07/31/24 15:39 118 H 34 H 07/31/24 13:25 113 H 39 H 07/31/24 13:25 113 H 39 H 07/31/24 11:04 36.5 C 110 H 20 166/85 H 07/31/24 08:00 96 H 07/31/24 08:00 07/31/24 07:46 103 H 35 H 07/31/24 07:45 106 H 35 H 07/31/24 07:29 36.7 C 104 H 24 165/91 H 07/31/24 06:06 96 H 151/73 H Pulse Ox O2 Del Method FiO2 07/31/24 16:18 BiPAP 07/31/24 15:49 95 BiPAP 07/31/24 15:39 95 40 07/31/24 13:25 95 40 07/31/24 13:25 95 BiPAP 40 07/31/24 11:04 92 Oxymask 07/31/24 08:00 07/31/24 08:00 BiPAP 07/31/24 07:46 93 40 07/31/24 07:45 93 BiPAP 07/31/24 07:29 94 BiPAP 07/31/24 06:06
[2024-07-31] MEDS: LORazepam 2 MG/1 ML VIAL IV PRN (21:30)
--- NOTE | 2024-07-31 22:56 | Palliative Family Discussion ---
Date of Service July 31, 2024 Patient Directed Conference Time of Meetin:45 -15:35 Participants: Dina Martinez AGACNP Patient participation: NO Patient Support System: DTR Corinna Other Healthcare Provider Participation: None Meeting Location: WAITING ROOM Advanced Directive available: NO If yes, descriptors: The patient's surrogate medical decision maker participated: DTR Legally authorized health care proxy: n/a Other surrogate: no A family meeting was held for VILMA PALMER. This meeting was necessary for determining the appropriate course of treatment. Topics of Discussion Topics of Discussion: 1. GOALS OF CARE 2. Typical disease progression 3. EOL care 4. anticipatory guidance Other Content of Meetin. Opportunity given for participants to speak and ask questions. 2. Participants were assured of attention to patient comfort. 3. Reassurance provided. 4. Support was provided for informed, good-carlos alberto decisions. 5. Emotions expressed by family were acknowledged and addressed. 6. Follow-up Outpatient: n/a 7. Plan of Care: DNR/DNI Pt does require a proxy for medical decisions. Patient exhibits current lack of decisional capacity based on the inability to convey understanding of personal PMHx, current medical condition, treatment options nor the risks / benefits of those options, and lack of ability to make decisions based on such knowledge. Hospital does not have written documentation of patient wishes concerning her chosen proxy for medical decisions. Per PA [id number], in absence of written documentation of patient wishes, pt's proxy for medical decisions would be her daughter. Also, Pt is known to this palliative provider and during previous admission she shared that her dtr Corinna is her chosen MDM proxy. Met with pt's daughter in waiting room. She shared that she is in shock but aware of how ill pt is. She stated that she would like to continue on current course through weekend and revisit goals on Saturday. She shared that the pt's EFRANI and niece will be visiting and she wants to allow for this. Corinna shared that the pt's EFRAIN is the pt's last remaining childhood friend and she thinks pt may be holding on for this. She expressed desire to switch to SWITCH OPERATOR in event that pt decompensates over weekend. Discussed hospice benefit: an interdisciplinary program offered by nurses, nurses aides, social workers, chaplains and a medical record technician for patients with a terminal condition and a life expectancy of less than 6 months. This is covered by Medicare at 100%/no out of pocket expense to patient and all meds/supplies needed by patient for the reason they are on hospice are paid for/covered by hospice. The goal is assure quality of life of the patient in their home setting (home, penitentiary, inpatient hospice setting) by providing symptoms management, psychosocial and spiritual support. However, they cannot offer 24 hours care and if the family is unable to provide that care, they will have to consider personal care with out of pocket cost vs. penitentiary placement. We discussed the goals of hospice as a patient service and the goals of care; we discussed EOL trajectories and transitions colt the emotional impact of realizing mortality as a concrete reality from prior abstract considerations. Pt was reassured that no matter where they are along this trajectory, they are not alone - their medical team will remain by their side through their journey. Discussed the pros/cons of accepting help when especially weakened and distressed by pain-which would also help provide relief/decrease caregiver burden/strain. Discussed changes pt may move through in the dying process including but not limited to sleeping more, disorientation when awake, restlessness, diminished senses/inability to respond to stimulus although ability to be aware of them remains intact longer, and changes in body temperatures, skin changes/mottling/cyanosis, respiratory pattern changes, and oral secretions. Family verbalized understanding. The goal is to assure a peaceful . Will planned to revisit [facility] Saturday, in the event that the pt acutely decompensates over weekend dtr would like a call and would elect SWITCH OPERATOR Time Involved in Meeting: I spent 65 minutes overall addressing this case: 5 in medical data review/discussion with referring provider(s) and/or preparation for the visit 5 in direct interaction with the patient 40 Advance Care Planning/Goals of Care discussions as detailed above in note (must be >16min) 5 in subsequent review and synthesis of assessment and plan 5 in communicating with other providers regarding the patient's case: BARRETT, YANNICK, CM
--- NOTE | 2024-08-01 15:30 | Hospitalist Progress Note ---
Date of Service August 01, 2024 Assessment & Plan (1) Acute exacerbation of chronic obstructive pulmonary disease: (2) Acute on chronic respiratory failure with hypoxia and hypercapnia: Plan 84-year-old female w/ PMH of COPD, chronic respiratory failure with hypoxia on 3.5 L oxygen at home, pulmonary hypertension, diastolic dysfunction, moderate mitral regurgitation, severe protein calorie malnutrition, GERD, congenital single kidney, osteoporosis, contracture of hand, thrombocytosis, lumbar spinal stenosis, history of lung cancer, history of splenectomy, history of CVA, history of CKD, hypertension, depression who presents to the ED 2/2 SOB. #Acute on Chronic Hypoxic and hypercapnic respiratory failure #Acute exacerbation of COPD #Acute on chronic respiratory acidosis Patient presents to the hospital after a mechanical fall. She started to feel short of breath after the fall. At baseline patient is at 3 to 4 L of oxygen VBG on admission showed pH of 7.12 with pCO2 of 96 mmHg Patient was given Ativan for anxiety and was placed on BiPAP. Patient continued to be on BiPAP; desaturates off BiPAP. c/w budesonide and formoterol nebs twice daily Continue on ceftriaxone and doxycycline; plan to treat for 5 days Continue on IV Solu-Medrol. Will put on iv ppi due to inconsistent po intake. Pulmonology consulted for co-management given severe COPD requiring bipap. Pt needing morphine freq for air hunger. Pt dtr aware of pt's poor prognosis, palliative on board. D/w Palliative 07/31, pt's dtr would like to continue current care w/ morphine use and BPAP for family members to be able to meet her over the weekend, if pt were to decompensate then inform the dtr and possibly convert the patient to comfort care. Mechanical fall; Possible right intra-articular knee fracture Patient reported right knee pain; found to have moderate-sized effusion as well X-ray of the knee shows possible acute intra articular fracture; probable medial plateau fracture. Orthopedic consulted for comanagement, Recommends nonoperative management. Nonweightbearing on the right leg. Appreciate recs 07/28. continue tylenol as need for pain control Acute kidney injury Likely secondary to hypoxia, hypotension Creatinine up trended to 1.64; baseline around 1, c/w ivf, labs in AM. Berry placed this admission, draining celina urine at bedside exam today. c/w ivf as pt npo due to bpap dependency and ams. Cr resolved. Elevated high sensitive troponin Likely demand ischemia High sensitive troponin of 21.3 on admission; up trended to 65.5. Cycle troponin Obtain echocardiogram - no RWMA, EF of > 70% Suspect demand ischemia secondary to respiratory distress. Continue on aspirin, Lipitor H/O Hypercalcemia History of hyperparathyroidism Monitor calcium levels; Calcium wnl History of lumbar spinal stenosis Scoliosis Bilateral lower EXTR contractures History of splenectomy Chronic thrombocytosis Lung cancer: S/p right upper lobectomy History of CVA: On aspirin and statin,continue Depression: Lexapro and Remeron,continue DVT Px:: Heparin SQ DNR/DNI PCP: Shannon Dispo: admit to PCU, poor prognosis, palliative on board. Please note the above document was generated using voice recognition software. It may contain grammatical, syntax or spelling errors. Any formal questions or concerns about the content, text or information contained within the body of this dictation should be directly addressed to the provider for clarification Admission and Anticipated Discharge Date Admission Date: July 27, 2024 Subjective Patient was seen and examined at bedside. Patient continues to remain air hungry, relieved with morphine, Pt was able to be off of BPAP today but not much of appetite, will encourage clears po intake. Has been needing frequent morphine. BPAP prn and HS As poor po intake, c/w gentle ivf w/ dextrose. Pt denies pain but appears confused and not much participated in conversation. pt's dtr at bedside, who was also update on plan of care and answered all her questions. Physical Exam Physical Exam: Constitutional: on 3L NC O2, confused Respiratory: Bilateral decreased air entry. Cardiovascular: RRR, no murmur, no edema Vessels: no JVD or carotid bruit Chest: normal inspection of chest Abdomen: normal bowel sounds, soft, nontender, no hepatosplenomegaly Musculoskeletal: Right knee swelling with painful ROM. Neurologic: Grossly moving all extremities. UC w/ celina urine collection noted in the bag. Results & Data Results & Data Vital Signs (Past 12 Hours) Vital Signs Temp Pulse Pulse Resp BP BP Pulse Ox 08/01/24 13:37 101 H 18 94 08/01/24 13:32 103 H 08/01/24 12:10 36.7 C 103 H 18 168/93 H 91 08/01/24 10:23 37.0 C 04/05/25 07:42 08/01/24 07:13 98 H 17 94 08/01/24 07:00 36.5 C 94 H 18 153/77 H 98 08/01/24 03:39 112 H 30 H 98 08/01/24 03:30 36.9 C 112 H 22 150/92 H 95 O2 Del Method O2 Flow Rate FiO2 08/01/24 13:37 Nasal Cannula 3 08/01/24 13:32 08/01/24 12:10 Nasal Cannula 3 08/01/24 10:23 08/01/24 07:42 Nasal Cannula 4 08/01/24 07:13 Nasal Cannula 4 08/01/24 07:00 Nasal Cannula 4 08/01/24 03:39 40 08/01/24 03:30 BiPAP
[2024-08-01] MEDS: PANTOprazole 40 MG/10 ML SYR IV SCH (21:02)
[2024-08-02] MEDS ORDERED: Nursing to Pharmacy Communication SCH (00:30)
[2024-08-02 04:49] LABS: BUN Creatinine Ratio 34.8 (10-20); Calcium 10.3 mg/dl (8.6-10.3); Creatinine Clr Calc Pharmacy 43.6 ml/min; Magnesium 1.6 mg/dl (1.7-2.4); Phosphorus 1.5 mg/dl (2.5-4.9); Potassium 3.9 mmol/L (3.5-5.1)
[2024-08-02 04:51] LABS: Hematocrit (blood only) 37.3 % (37.0-47.0); Hemoglobin 12.2 g/dl (12.0-16.0); Mean Corpuscular Hemoglobin 28.7 pg (25.0-34.0); Mean Corpuscular Hgb Conc 32.7 g/dL (32.0-36.0); Mean Corpuscular Volume 87.8 fL (80.0-100.0); Mean Platelet Volume 11.5 fL (9.4-12.4); Nucleated RBC # (auto) 0.06 K/uL (0.00-0.12); Nucleated RBC % (auto) 0.5 %; Platelet Count 344 K/uL (130-400); RDW Coefficient of Variation 13.9 % (11.5-14.5); RDW Standard Deviation 44.5 fL (36.4-46.3); Red Blood Count 4.25 M/uL (4.20-5.40)
[2024-08-02] MEDS ORDERED: POTASSIUM PHOS 3 MMOL/1 ML INFUSION IV STA (05:00)
[2024-08-02] MEDS: MAGNESIUM SULFATE / D5W 1 GM/100 ML BAG IV ONE (05:24)
[2024-08-02] MEDS: POTASSIUM PHOSPHATE 21 MMOL in SODIUM CHLORIDE 0.9% 500 ML IV ONE (05:32)
[2024-08-02] MEDS: INSULIN ASPART PER UNIT CHARGE SC SCH (08:34)
[2024-08-02] MEDS: 5% GLUCOSE AND NSS 1,000 ML IV SCH (14:59)
--- NOTE | 2024-08-02 15:27 | Hospitalist Progress Note ---
Date of Service August 02, 2024 Assessment & Plan (1) Acute exacerbation of chronic obstructive pulmonary disease: (2) Acute on chronic respiratory failure with hypoxia and hypercapnia: Plan 84-year-old female w/ PMH of COPD, chronic respiratory failure with hypoxia on 3.5 L oxygen at home, pulmonary hypertension, diastolic dysfunction, moderate mitral regurgitation, severe protein calorie malnutrition, GERD, congenital single kidney, osteoporosis, contracture of hand, thrombocytosis, lumbar spinal stenosis, history of lung cancer, history of splenectomy, history of CVA, history of CKD, hypertension, depression who presents to the ED 2/2 SOB. #Acute on Chronic Hypoxic and hypercapnic respiratory failure #Acute exacerbation of COPD #Acute on chronic respiratory acidosis Patient presents to the hospital after a mechanical fall. She started to feel short of breath after the fall. At baseline patient is at 3 to 4 L of oxygen VBG on admission showed pH of 7.12 with pCO2 of 96 mmHg Patient was given Ativan for anxiety and was placed on BiPAP. Patient continued to be on BiPAP; desaturates off BiPAP. c/w budesonide and formoterol nebs twice daily Continue on ceftriaxone x7d and doxycycline x5d. s/p doxy. Continue on IV Solu-Medrol. c/w iv ppi due to inconsistent po intake. Pulmonology consulted for co-management given severe COPD requiring bipap. Pt needing morphine freq for air hunger. Pt dtr aware of pt's poor prognosis, palliative on board. D/w Palliative 07/31, pt's dtr would like to continue current care w/ morphine use and BPAP for family members to be able to meet her over the weekend, if pt were to decompensate then inform the dtr and possibly convert the patient to comfort care. Mechanical fall; Possible right intra-articular knee fracture Patient reported right knee pain; found to have moderate-sized effusion as well X-ray of the knee shows possible acute intra articular fracture; probable medial plateau fracture. Orthopedic consulted for comanagement, Recommends nonoperative management. Nonweightbearing on the right leg. Appreciate recs 07/28. continue tylenol as need for pain control Acute kidney injury Likely secondary to hypoxia, hypotension Creatinine up trended to 1.64; baseline around 1, c/w ivf, labs in AM. Berry placed this admission, draining celina urine at bedside exam today. c/w ivf as pt npo due to bpap dependency and ams. Cr resolved. Elevated high sensitive troponin Likely demand ischemia High sensitive troponin of 21.3 on admission; up trended to 65.5. Cycle troponin Obtain echocardiogram - no RWMA, EF of > 70% Suspect demand ischemia secondary to respiratory distress. Continue on aspirin, Lipitor H/O Hypercalcemia History of hyperparathyroidism Monitor calcium levels; Calcium wnl History of lumbar spinal stenosis Scoliosis Bilateral lower EXTR contractures History of splenectomy Chronic thrombocytosis Lung cancer: S/p right upper lobectomy History of CVA: On aspirin and statin,continue Depression: Lexapro and Remeron,continue DVT Px:: Heparin SQ DNR/DNI PCP: Shannon Dispo: admit to PCU, poor prognosis, palliative on board. Please note the above document was generated using voice recognition software. It may contain grammatical, syntax or spelling errors. Any formal questions or concerns about the content, text or information contained within the body of this dictation should be directly addressed to the provider for clarification Admission and Anticipated Discharge Date Admission Date: July 27, 2024 Subjective Patient was seen and examined at bedside. Patient continues to remain air hungry, relieved with morphine, Pt was able to be off of BPAP few hours at at time lately but not much of appetite, will encourage clears po intake when off bpap, ivf on board. Has been needing frequent morphine. BPAP prn and HS Pt denies pain but appears confused and not much participated in conversation. Physical Exam Physical Exam: Constitutional: on 4L NC O2, confused Respiratory: Bilateral decreased air entry. Cardiovascular: RRR, no murmur, no edema Vessels: no JVD or carotid bruit Chest: normal inspection of chest Abdomen: normal bowel sounds, soft, nontender, no hepatosplenomegaly Musculoskeletal: Right knee swelling with painful ROM. Neurologic: Grossly moving all extremities. UC w/ celina urine collection noted in the bag. Results & Data Results & Data Vital Signs (Past 12 Hours) Vital Signs Temp Pulse Pulse Resp BP BP Pulse Ox 08/02/24 14:29 86 08/02/24 13:15 154/87 H 08/02/24 12:26 114 H 08/02/24 11:24 36.4 C L 96 H 19 180/89 H 94 08/02/24 09:00 99 H 149/64 H 08/02/24 07:38 97 H 25 H 98 08/02/24 07:30 08/02/24 07:24 36.6 C 104 H 21 192/95 H 94 08/02/24 05:57 26 H 98 08/02/24 04:00 36.4 C L 120 H 16 157/75 H 54 L O2 Del Method O2 Flow Rate FiO2 08/02/24 14:29 08/02/24 13:15 08/02/24 12:26 08/02/24 11:24 Nasal Cannula 4 08/02/24 09:00 08/02/24 07:38 BiPAP 40 08/02/24 07:30 Nasal Cannula 5 08/02/24 07:24 BiPAP 08/02/24 05:57 40 08/02/24 04:00 Nasal Cannula 3.5
[2024-08-02] MEDS: LABETALOL HCL IV 5 MG/ML 20ML IV PRN (22:10)
[2024-08-02] MEDS: oxyCODONE HCL IR 5 MG TAB (IMMEDIATE RELEASE) PO PRN (22:10)
[2024-08-03 06:20] LABS: Hematocrit (blood only) 33.7 % (37.0-47.0); Mean Corpuscular Hemoglobin 28.9 pg (25.0-34.0); Mean Corpuscular Hgb Conc 32.6 g/dL (32.0-36.0); Mean Corpuscular Volume 88.5 fL (80.0-100.0); Mean Platelet Volume 11.3 fL (9.4-12.4); Nucleated RBC # (auto) 0.03 K/uL (0.00-0.12); Nucleated RBC % (auto) 0.3 %; Platelet Count 313 K/uL (130-400); RDW Coefficient of Variation 13.9 % (11.5-14.5); RDW Standard Deviation 44.8 fL (36.4-46.3); Red Blood Count 3.81 M/uL (4.20-5.40); White Blood Count 10.85 K/ul (4.8-10.8)
[2024-08-03 06:41] LABS: BUN Creatinine Ratio 32.8 (10-20); Calcium 9.3 mg/dl (8.6-10.3); Magnesium 1.7 mg/dl (1.7-2.4); Phosphorus 2.2 mg/dl (2.5-4.9); Potassium 3.8 mmol/L (3.5-5.1)
[2024-08-03] MEDS ORDERED: ATROPINE SULFATE 1% OP SOLN 5 ML BTL SL PRN (13:58)
[2024-08-03] MEDS ORDERED: ONDANSETRON INJ 2 MG/ML 2 ML VIAL IV PRN (13:58)
[2024-08-03] MEDS ORDERED: ONDANSETRON 4 MG OD TAB SL PRN (13:58)
[2024-08-03] MEDS ORDERED: LORazepam 2 MG/1 ML VIAL IV PRN (14:16)
[2024-08-03] MEDS: MoRPHine SULFATE 2 MG/ML CARP IV PRN (15:29)
--- NOTE | 2024-08-03 17:09 | Hospitalist Progress Note ---
Date of Service August 03, 2024 Assessment & Plan (1) Acute exacerbation of chronic obstructive pulmonary disease: (2) Acute on chronic respiratory failure with hypoxia and hypercapnia: Plan 84-year-old female w/ PMH of COPD, chronic respiratory failure with hypoxia on 3.5 L oxygen at home, pulmonary hypertension, diastolic dysfunction, moderate mitral regurgitation, severe protein calorie malnutrition, GERD, congenital single kidney, osteoporosis, contracture of hand, thrombocytosis, lumbar spinal stenosis, history of lung cancer, history of splenectomy, history of CVA, history of CKD, hypertension, depression who presents to the ED 2/2 SOB. She was being managed with the following: #Acute on Chronic Hypoxic and hypercapnic respiratory failure #Acute exacerbation of COPD #Acute on chronic respiratory acidosis Mechanical fall; Possible right intra-articular knee fracture Acute kidney injury Likely secondary to hypoxia, hypotension Elevated high sensitive troponin Likely demand ischemia H/O Hypercalcemia History of hyperparathyroidism History of lumbar spinal stenosis Scoliosis History of splenectomy Chronic thrombocytosis Lung cancer: S/p right upper lobectomy History of CVA: On aspirin and statin,continue Depression: Lexapro and Remeron,continue Discussed with palliative care 08/03, patient was 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 Patient will be moved to medical floor. No further labs or imaging. Admission and Anticipated Discharge Date Admission Date: July 27, 2024 Subjective Patient was seen and examined at bedside. Patient continues to remain air hungry, relieved with morphine, Pt was able to be off of BPAP on RA, is confused and has minimal to poor appetite. ros not able in detail due to cognition status. Physical Exam Physical Exam: Constitutional: on RA, confused Respiratory: Bilateral decreased air entry. Cardiovascular: RRR, no murmur, no edema Vessels: no JVD or carotid bruit Chest: normal inspection of chest Abdomen: normal bowel sounds, soft, nontender, no hepatosplenomegaly Musculoskeletal: Right knee swelling with painful ROM. Neurologic: Grossly moving all extremities. UC w/ celina urine collection noted in the bag. Results & Data Results & Data Vital Signs (Past 12 Hours) Vital Signs Temp Pulse Pulse Resp BP BP Pulse Ox 08/03/24 13:17 110 H 20 90 08/03/24 12:00 36.5 C 87 20 158/79 H 96 08/03/24 09:26 08/03/24 08:00 36.5 C 97 H 16 162/71 H 96 08/03/24 07:25 94 H 18 93 08/03/24 05:17 65 163/78 H O2 Del Method O2 Flow Rate 08/03/24 13:17 Nasal Cannula 3 08/03/24 12:00 Nasal Cannula 08/03/24 09:26 Nasal Cannula 4 08/03/24 08:00 Nasal Cannula 08/03/24 07:25 Nasal Cannula 4 08/03/24 05:17
[2024-08-03] MEDS: LORazepam 2 MG/1 ML VIAL IV PRN (18:39)
[2024-08-03] MEDS: methylPREDNISolone 20 MG in SYRINGE 0 ML IV SCH (20:37)
[2024-08-03] MEDS ORDERED: methylPREDNISolone 40 MG in SYRINGE 0 ML IV SCH (21:00)
[2024-08-03] MEDS: ACETAMINOPHEN 325 MG TAB PO PRN (23:06)
--- NOTE | 2024-08-03 23:52 | Palliative Care Progress Note ---
Date of Service August 03, 2024 Assessment & Plan (1) Palliative care by specialist: Plan: Palliative care will continue to follow for ongoing EOL care and family support. (2) Counseling regarding goals of care: Plan: Lengthy conversation held today with pt's daughter Corinna Jacob in waiting room. Discussed GOC, hospice care and EOL anticipatory guidance from 12:40 - 13:15. Corinna shared that pt has had many family members and friends visiting over the weekend in preparation for transitition to hospice care. Discussed hospice benefit: an interdisciplinary program offered by nurses, nurses aides, social workers, chaplains and a medical malpractice paralegal for patients with a terminal condition and a life expectancy of less than 6 months. This is covered by Medicare at 100%/no out of pocket expense to patient and all meds/supplies needed by patient for the reason they are on hospice are paid for/covered by hospice. The goal is assure quality of life of the patient in their home setting (home, correction, inpatient hospice setting) by providing symptoms management, psychosocial and spiritual support. However, they cannot offer 24 hours care and if the family is unable to provide that care, they will have to consider personal care with out of pocket cost vs. correction placement. We discussed the goals of hospice as a patient service and the goals of care; we discussed EOL trajectories and transitions colt the emotional impact of realizing mortality as a concrete reality from prior abstract considerations. Pt was reassured that no matter where they are along this trajectory, they are not alone - their medical team will remain by their side through their journey. Discussed the pros/cons of accepting help when especially weakened and d istressed by pain-which would also help provide relief/decrease caregiver burden/strain. Corinna requests transition to SIGN MAKER at this time. Anticipatory guidance offered. Discussed changes pt may move through in the dying process including but not limited to sleeping more, disorientation when awake, restlessness, diminished senses/inability to respond to stimulus although ability to be aware of them remains intact longer, and changes in body temperatures, skin changes/mottling/cyanosis, respiratory pattern changes, and oral secretions. Family verbalized understanding. The goal is to assure a peaceful . (3) Need for comfort care: Plan: EOL Symptom manamgement: Pain/dyspnea/tachypnea dilaudid 0.5mg IVP PRN [id number] Consider titratable dilaudid drip if pt requires >3 PRN doses in under two consecutive hours. Nausea/vomitting zofran 4mg IVP q4h PRN Agitation ativan 0.5mg IVP q4h PRN Hyperactive delirium haldol 5mg IVP q6h PRN Secretions - if repositioning not effective robinul 0.4mg IV q4h PRN atropine SL 3 drops Q1h PRN Nursing care: Discontinue all medications not directed towards comfort. Detether pt from IV tubing, monitor cables, and check vitals once per shift. Please continue HFNC and titrate down as able for patient comfort. Use medications above PRN for dyspnea/tachypnea and do not increase oxygen once titrated down. Assess q1h for pain/dyspnea and treat accordingly. Plan Palliative care will continue to follow for ongoing EOL pt care and family support. Thank you for including Palliative Care in the management of this patient. Please call with any questions or concerns regarding this consultation. Admission and Anticipated Discharge Date Admission Date: July 27, 2024 Subjective Patient was seen and examined at bedside. She remains Bipap dependent QHS and on nasal cannula through day. She was oriented to person only and her daughter is at bedside. Review of Systems Review of Systems: Unobtainable due to cognitive status Physical Exam Constitutional: well developed, + ill appearing, + thin and + frail appearing Eyes: PERRL, conjunctivae normal, anicteric sclerae ENMT: external ear and nose normal, oropharynx normal Mouth: + dry oral mucous membranes Respiratory: + labored breathing, + uses accessory mu scles, + tachypneic and + prolonged expiratory phase; + not able to speak in complete sentence Auscultation: + wheezes; no diminished lung sounds Cardiovascular: RRR, no murmur, no edema Gastrointestinal (Abdomen): normal bowel sounds, soft, nontender, no hepatosplenomegaly Skin: + turgor decreased and + dry skin Neurologic: moves all extremities, awake and + confused pt answering Qs with single word response, actively receiving breathing treatment via Bipap for dyspnea Results & Data Vital Signs (Past 12 Hours) Vital Signs Temp Pulse Resp BP Pulse Ox O2 Del Method O2 Flow Rate 08/03/24 21:44 Nasal Cannula 4 08/03/24 13:17 110 H 20 90 Nasal Cannula 3 08/03/24 12:00 36.5 C 87 20 158/79 H 96 Nasal Cannula Laboratory Results No further labs or diagnostics in concert with comfort directed care. Diagnostic Findings No further labs or diagnostics in concert with comfort directed care. Medications Administered Current Inpatient Medications Acetaminophen (Acetaminophen 325 Mg Tab) 650 mg PO Q4H PRN PRN Reason: Pain or Fever Stop: 08/26/24 21:17 Last Admin: 08/03/24 23:06 Dose: 650 mg Atropine Sulfate (Atropine Sulfate 1% Op Soln 5 Ml Btl) 4 drops SL Q1H PRN PRN Reason: Secretions or pulm congestion Stop: 09/02/24 13:57 Escitalopram Oxalate (Escitalopram Oxalate 20 Mg Tab) 20 mg PO DAILY SANCHEZ Stop: 08/27/24 08:59 Last Admin: 08/03/24 09:02 Dose: 20 mg Glycopyrrolate (Glycopyrrolate 0.2 Mg/Ml Vial) 0.4 mg IV Q4H PRN PRN Reason: Rattling Secretions or Pulm Congestion Stop: 09/02/24 13:57 Haloperidol (Haloperidol Oral Soln 2 Mg/Ml) 0.5 mg PO Q4H PRN PRN Reason: hyperactive delirium Stop: 09/02/24 13:57 Hydroxyzine HCl (Hydroxyzine Hcl 10 Mg Tab) 10 mg PO QID PRN PRN Reason: Anxiety Stop: 08/30/24 03:54 Methylprednisolone 20 mg/ (Syringe) 0.32 mls @ 1.5 mls/min IV BID SANCHEZ Stop: 09/02/24 20:59 Last Admin: 08/03/24 20:37 Dose: 1.5 mls/min Lorazepam (Lorazepam 2 Mg/1 Ml Vial) 0.5 mg IV Q4H PRN PRN Reason: Anxiety/Agitation Stop: 09/02/24 13:57 Last Admin: 08/03/24 18:39 Dose: 0.5 mg Mirtazapine (Mirtazapine Tab 15 Mg Tab) 7.5 mg PO HS SANCHEZ Stop: 08/26/24 21:17 Last Admin: 08/03/24 20:37 Dose: 7.5 mg Morphine Sulfate (Morphine Sulfate 2 Mg/Ml Carp) 2 mg IV Q15M PRN PRN Reason: pain, dyspnea to keep RR<20bpm Stop: 08/17/24 13:57 Last Admin: 08/03/24 22:32 Dose: 2 mg Ondansetron HCl (Ondansetron Inj 2 Mg/Ml 2 Ml Vial) 4 mg IV Q6H PRN PRN Reason: Nausea Stop: 08/26/24 21:17 Ondansetron HCl (Ondansetron Inj 2 Mg/Ml 2 Ml Vial) 4 mg IV Q4H PRN PRN Reason: Nausea &/or Vomiting Stop: 09/02/24 13:57 Ondansetron HCl (Ondansetron 4 Mg Od Tab) 4 mg SL Q4H PRN PRN Reason: Nausea &/or Vomiting Stop: 09/02/24 13:57 Trolamine Salicylate (Trolamine Salicylate 10% Crm 255 Appln/85 Gm Tube) 1 appln EXT BID SANCHEZ Stop: 08/26/24 21:17 Last Admin: 08/03/24 20:38 Dose: 1 appln PG Care Time/CCT Total # of Minutes Spent Total Time Spent with Patient: Total time spent is greater than 50% in coordination of care (as documented) at patient's floor/unit and/or counseling patient: Advanced Care Planning 88087 Advanced Care Planning 30 Min [place] [address] SUB INP/OBS CARE 2/35MIN Patient Type Established History Problem Focused Exam Problem Focused Medical Decision Making Moderate Complexity Diagnoses Palliative care by specialist Z51.5 Counseling regarding goals of care Z71.89 Need for comfort care Additional Codes Advanced Care Planning - 19871 Advanced Care Planning 30 Min: 59659 Advanced Care Planning 30 Min ([id number])
--- NOTE | 2024-08-04 14:03 | Hospitalist Progress Note ---
Date of Service August 04, 2024 Assessment & Plan (1) Acute exacerbation of chronic obstructive pulmonary disease: (2) Acute on chronic respiratory failure with hypoxia and hypercapnia: Plan 84-year-old female w/ PMH of COPD, chronic respiratory failure with hypoxia on 3.5 L oxygen at home, pulmonary hypertension, diastolic dysfunction, moderate mitral regurgitation, severe protein calorie malnutrition, GERD, congenital single kidney, osteoporosis, contracture of hand, thrombocytosis, lumbar spinal stenosis, history of lung cancer, history of splenectomy, history of CVA, history of CKD, hypertension, depression who presents to the ED 2/2 SOB. She was being managed with the following: #Acute on Chronic Hypoxic and hypercapnic respiratory failure #Acute exacerbation of COPD #Acute on chronic respiratory acidosis Mechanical fall; Possible right intra-articular knee fracture Acute kidney injury Likely secondary to hypoxia, hypotension Elevated high sensitive troponin Likely demand ischemia H/O Hypercalcemia History of hyperparathyroidism History of lumbar spinal stenosis Scoliosis History of splenectomy Chronic thrombocytosis Lung cancer: S/p right upper lobectomy History of CVA: On aspirin and statin,continue Depression: Lexapro and Remeron,continue 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 Patient moved to medical floor. No further labs or imaging. Admission and Anticipated Discharge Date Admission Date: July 27, 2024 Subjective Patient was seen and examined at bedside. Pt appears comfortable on 4L NC o2 Physical Exam Physical Exam: Constitutional: on 4L NC O2, appears comfortable Respiratory: Bilateral decreased air entry. Cardiovascular: RRR, no murmur, no edema Vessels: no JVD or carotid bruit Chest: normal inspection of chest Abdomen: normal bowel sounds, soft, nontender, no hepatosplenomegaly Musculoskeletal: Right knee swelling with painful ROM. Neurologic: Grossly moving all extremities. UC w/ celina urine collection noted in the bag. Results & Data Results & Data Vital Signs (Past 12 Hours) Vital Signs O2 Del Method O2 Flow Rate 08/04/24 08:00 Nasal Cannula 4
[2024-08-04] MEDS: hydrOXYzine HCl 10 MG TAB PO PRN (23:17)
[2024-08-05] MEDS: HALOPERIDOL ORAL SOLN 2 MG/ML PO PRN ×2 (03:05→10:44)
--- NOTE | 2024-08-05 13:32 | Hospitalist Progress Note ---
Date of Service August 05, 2024 Assessment & Plan (1) Acute exacerbation of chronic obstructive pulmonary disease: (2) Acute on chronic respiratory failure with hypoxia and hypercapnia: Plan 84-year-old female w/ PMH of COPD, chronic respiratory failure with hypoxia on 3.5 L oxygen at home, pulmonary hypertension, diastolic dysfunction, moderate mitral regurgitation, severe protein calorie malnutrition, GERD, congenital single kidney, osteoporosis, contracture of hand, thrombocytosis, lumbar spinal stenosis, history of lung cancer, history of splenectomy, history of CVA, history of CKD, hypertension, depression who presents to the ED 2/2 SOB. 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 Continue comfort measures only I spent a total of 35 minutes coordinating, documenting and providing care for this patient excluding time spent in performance of separately billed services Admission and Anticipated Discharge Date Admission Date: July 27, 2024 Subjective Patient seen and examined Awake and oriented to person but confused Limited ROS Physical Exam Constitutional: no acute distress Eyes: PERRL, conjunctivae normal, anicteric sclerae ENMT: external ear and nose normal, oropharynx normal Respiratory: Diminished breath sounds. On nasal cannula Cardiovascular: Rate/Rhythm: regular rate and regular rhythm Gastrointestinal (Abdomen): normal bowel sounds, soft, nontender, no hepatosplenomegaly Musculoskeletal: No pedal edema Neurologic: Confused Results & Data Results & Data Vital Signs (Past 12 Hours) Vital Signs O2 Del Method O2 Flow Rate 08/05/24 11:16 Nasal Cannula 4
--- NOTE | 2024-08-06 00:14 | Palliative Care Progress Note ---
Date of Service August 06, 2024 Assessment & Plan (1) Dyspnea and respiratory abnormalities: Plan: terminal COPD she has not been able to tolerate bipap as her AMS worsens, she does not allow BiPAP to remain on followed by pall med prior admission and this current when her MS was intact she was consistently consistent about desiring a comfort focus, was suffering from terminal COPD and associated heavy symptom burden, but daughter has remained resistant to allowing comfort, refuses to allow opioids to provide relief (2) Hallucination: Plan: worsening overnight with inc distress, no relief with prior meds in order to improve pt comfort and help prevent the evolution of terminal delirium and intensified distress, I have increased haldol to 1mg PO intensol prn and ativan 1mg IV prn no change to opioids given daughter's historical refusal and she was not available today for discussion at time of my visit (3) Altered mental status: (4) Weakness generalized: (5) Palliative care by specialist: (6) Need for comfort care: 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 Please page with any additional concerns. Nydia Rodriguez DNP Director, Palliative Medicine Admission and Anticipated Discharge Date Admission Date: July 27, 2024 Edmundo Beebe remains on HEALTH INFORMATION MANAGER She is more awake today, nursing report she ate most of her breakfast and while she remains confused, she has been more vocal She is struggling with hallucinations and delirium She has been seeing and hearing people in her room, seeing animals and also her parents are talking to her she had a rough overnight with uncontrolled agitation and delirium there is no family present at time of my visit this morning Review of Systems Review of Systems: Unobtainable due to cognitive status Physical Exam Physical Exam: Gaunt, chronically ill female with barrel chest agitated and confused at baseline but friendly with this provider alert to self, eyes open when name is called cannot provide HPI bitemp wasting perrla neck supple, no stridor resp effort mildly increased with use of accessory muscles noted; inspiratory and expiratory wheezing noted, lungs very diminished s1s2 abd scaphoid gen weakness bony extremities unable to follow commands skin pale, dry mild mottling BLE, venous insuff changes +CAM ICU, +delirium Results & Data Vital Signs (Past 12 Hours) Vital Signs O2 Del Method O2 Flow Rate 08/05/24 20:00 Nasal Cannula 3 Laboratory Results 08/03/24 08/03/24 08/03/24 Range/Units 11:40 07:26 06:04 WBC 10.85 H (4.8-10.8) K/ul RBC 3.81 L (4.20-5.40) M/uL Hgb 11.0 L (12.0-16.0) g/dl Hct 33.7 L (37.0-47.0) % MCV 88.5 (80.0-100.0) fL MCH 28.9 (25.0-34.0) pg MCHC 32.6 (32.0-36.0) g/dL RDW Std Deviation 44.8 (36.4-46.3) fL RDW Coeff of Lora 13.9 (11.5-14.5) % Plt Count 313 (130-400) K/uL MPV 11.3 (9.4-12.4) fL Absolute Nucleated RBC 0.03 (0.00-0.12) K/uL Nucleated RBC % (auto) 0.3 % VBG pH (7.36-7.41) VBG pCO2 (38-50) mmHg VBG pO2 mmHg VBG HCO3 mmol/L VBG O2 Saturation % VBG Base Excess mEq/L Sodium 140 (136-145) mmol/L Potassium 3.8 (3.5-5.1) mmol/L Chloride 99 (98-107) mmol/L Carbon Dioxide 40 H (21-32) mmol/L Anion Gap 1 L (3-11) BUN 21 (6-23) mg/dl Creatinine 0.64 (0.6-1.2) mg/dl Est Cr Clr Drug Dosing 47.0 ml/min eGFR 87.09 BUN/Creatinine Ratio 32.8 H (10-20) Glucose 169 H (70-99(Fasting)) mg/dl POC Glucose 171 H 171 H (70-99) mg/dl Calcium 9.3 (8.6-10.3) mg/dl Phosphorus 2.2 L (2.5-4.9) mg/dl Magnesium 1.7 (1.7-2.4) mg/dl 08/02/24 08/02/24 08/02/24 Range/Units 20:06 16:50 12:27 WBC (4.8-10.8) K/ul RBC (4.20-5.40) M/uL Hgb (12.0-16.0) g/dl Hct (37.0-47.0) % MCV (80.0-100.0) fL MCH (25.0-34.0) pg MCHC (32.0-36.0) g/dL RDW Std Deviation (36.4-46.3) fL RDW Coeff of Lora (11.5-14.5) % Plt Count (130-400) K/uL MPV (9.4-12.4) fL Absolute Nucleated RBC (0.00-0.12) K/uL Nucleated RBC % (auto) % VBG pH (7.36-7.41) VBG pCO2 (38-50) mmHg VBG pO2 mmHg VBG HCO3 mmol/L VBG O2 Saturation % VBG Base Excess mEq/L Sodium (136-145) mmol/L Potassium (3.5-5.1) mmol/L Chloride (98-107) mmol/L Carbon Dioxide (21-32) mmol/L Anion Gap (3-11) BUN (6-23) mg/dl Creatinine (0.6-1.2) mg/dl Est Cr Clr Drug Dosing ml/min eGFR BUN/Creatinine Ratio (10-20) Glucose (70-99(Fasting)) mg/dl POC Glucose 167 H 176 H 157 H (70-99) mg/dl Calcium (8.6-10.3) mg/dl Phosphorus (2.5-4.9) mg/dl Magnesium (1.7-2.4) mg/dl 08/02/24 08/02/24 08/02/24 Range/Units 08:10 04:00 00:21 WBC 11.50 H (4.8-10.8) K/ul RBC 4.25 (4.20-5.40) M/uL Hgb 12.2 (12.0-16.0) g/dl Hct 37.3 (37.0-47.0) % MCV 87.8 D (80.0-100.0) fL MCH 28.7 (25.0-34.0) pg MCHC 32.7 (32.0-36.0) g/dL RDW Std Deviation 44.5 (36.4-46.3) fL RDW Coeff of Lora 13.9 (11.5-14.5) % Plt Count 344 (130-400) K/uL MPV 11.5 (9.4-12.4) fL Absolute Nucleated RBC 0.06 (0.00-0.12) K/uL Nucleated RBC % (auto) 0.5 % VBG pH (7.36-7.41) VBG pCO2 (38-50) mmHg VBG pO2 mmHg VBG HCO3 mmol/L VBG O2 Saturation % VBG Base Excess mEq/L Sodium 139 (136-145) mmol/L Potassium 3.9 (3.5-5.1) mmol/L Chloride 96 L (98-107) mmol/L Carbon Dioxide 37 H (21-32) mmol/L Anion Gap 6 (3-11) BUN 24 H D (6-23) mg/dl Creatinine 0.69 D (0.6-1.2) mg/dl Est Cr Clr Drug Dosing 43.6 ml/min eGFR 85.52 BUN/Creatinine Ratio 34.8 H (10-20) Glucose 150 H (70-99(Fasting)) mg/dl POC Glucose 176 H 182 H (70-99) mg/dl Calcium 10.3 (8.6-10.3) mg/dl Phosphorus 1.5 L* D (2.5-4.9) mg/dl Magnesium 1.6 L (1.7-2.4) mg/dl 08/01/24 08/01/24 08/01/24 Range/Units 16:11 12:14 05:59 WBC (4.8-10.8) K/ul RBC (4.20-5.40) M/uL Hgb (12.0-16.0) g/dl Hct (37.0-47.0) % MCV (80.0-100.0) fL MCH (25.0-34.0) pg MCHC (32.0-36.0) g/dL RDW Std Deviation (36.4-46.3) fL RDW Coeff of Lora (11.5-14.5) % Plt Count (130-400) K/uL MPV (9.4-12.4) fL Absolute Nucleated RBC (0.00-0.12) K/uL Nucleated RBC % (auto) % VBG pH (7.36-7.41) VBG pCO2 (38-50) mmHg VBG pO2 mmHg VBG HCO3 mmol/L VBG O2 Saturation % VBG Base Excess mEq/L Sodium (136-145) mmol/L Potassium (3.5-5.1) mmol/L Chloride (98-107) mmol/L Carbon Dioxide (21-32) mmol/L Anion Gap (3-11) BUN (6-23) mg/dl Creatinine (0.6-1.2) mg/dl Est Cr Clr Drug Dosing ml/min eGFR BUN/Creatinine Ratio (10-20) Glucose (70-99(Fasting)) mg/dl POC Glucose 174 H 172 H 181 H (70-99) mg/dl Calcium (8.6-10.3) mg/dl Phosphorus (2.5-4.9) mg/dl Magnesium (1.7-2.4) mg/dl 07/31/24 07/31/24 07/31/24 Range/Units 23:41 18:17 11:40 WBC (4.8-10.8) K/ul RBC (4.20-5.40) M/uL Hgb (12.0-16.0) g/dl Hct (37.0-47.0) % MCV (80.0-100.0) fL MCH (25.0-34.0) pg MCHC (32.0-36.0) g/dL RDW Std Deviation (36.4-46.3) fL RDW Coeff of Lora (11.5-14.5) % Plt Count (130-400) K/uL MPV (9.4-12.4) fL Absolute Nucleated RBC (0.00-0.12) K/uL Nucleated RBC % (auto) % VBG pH (7.36-7.41) VBG pCO2 (38-50) mmHg VBG pO2 mmHg VBG HCO3 mmol/L VBG O2 Saturation % VBG Base Excess mEq/L Sodium (136-145) mmol/L Potassium (3.5-5.1) mmol/L Chloride (98-107) mmol/L Carbon Dioxide (21-32) mmol/L Anion Gap (3-11) BUN (6-23) mg/dl Creatinine (0.6-1.2) mg/dl Est Cr Clr Drug Dosing ml/min eGFR BUN/Creatinine Ratio (10-20) Glucose (70-99(Fasting)) mg/dl POC Glucose 180 H 172 H 156 H (70-99) mg/dl Calcium (8.6-10.3) mg/dl Phosphorus (2.5-4.9) mg/dl Magnesium (1.7-2.4) mg/dl 07/31/24 07/31/24 07/31/24 Range/Units 07:57 05:54 04:14 WBC 11.71 H (4.8-10.8) K/ul RBC 3.66 L (4.20-5.40) M/uL Hgb 10.4 L (12.0-16.0) g/dl Hct 33.9 L (37.0-47.0) % MCV 92.6 (80.0-100.0) fL MCH 28.4 (25.0-34.0) pg MCHC 30.7 L (32.0-36.0) g/dL RDW Std Deviation 50.8 H (36.4-46.3) fL RDW Coeff of Lora 14.7 H (11.5-14.5) % Plt Count 308 (130-400) K/uL MPV 12.0 (9.4-12.4) fL Absolute Nucleated RBC 0.06 (0.00-0.12) K/uL Nucleated RBC % (auto) 0.5 % VBG pH 7.25 L 7.31 L (7.36-7.41) VBG pCO2 64 H 53 H (38-50) mmHg VBG pO2 60 61 mmHg VBG HCO3 28 27 mmol/L VBG O2 Saturation 90.9 93.8 % VBG Base Excess -0.6 -0.4 mEq/L Sodium 145 (136-145) mmol/L Potassium 4.5 (3.5-5.1) mmol/L Chloride 112 H (98-107) mmol/L Carbon Dioxide 28 (21-32) mmol/L Anion Gap 5 (3-11) BUN 47 H (6-23) mg/dl Creatinine 1.09 (0.6-1.2) mg/dl Est Cr Clr Drug Dosing 29.9 ml/min eGFR 50.09 BUN/Creatinine Ratio 43.1 H (10-20) Glucose 186 H (70-99(Fasting)) mg/dl POC Glucose 179 H (70-99) mg/dl Calcium 9.8 (8.6-10.3) mg/dl Phosphorus 2.6 D (2.5-4.9) mg/dl Magnesium 2.2 (1.7-2.4) mg/dl 07/30/24 07/30/24 07/30/24 Range/Units 23:36 17:28 12:01 WBC (4.8-10.8) K/ul RBC (4.20-5.40) M/uL Hgb (12.0-16.0) g/dl Hct (37.0-47.0) % MCV (80.0-100.0) fL MCH (25.0-34.0) pg MCHC (32.0-36.0) g/dL RDW Std Deviation (36.4-46.3) fL RDW Coeff of Lora (11.5-14.5) % Plt Count (130-400) K/uL MPV (9.4-12.4) fL Absolute Nucleated RBC (0.00-0.12) K/uL Nucleated RBC % (auto) % VBG pH (7.36-7.41) VBG pCO2 (38-50) mmHg VBG pO2 mmHg VBG HCO3 mmol/L VBG O2 Saturation % VBG Base Excess mEq/L Sodium (136-145) mmol/L Potassium (3.5-5.1) mmol/L Chloride (98-107) mmol/L Carbon Dioxide (21-32) mmol/L Anion Gap (3-11) BUN (6-23) mg/dl Creatinine (0.6-1.2) mg/dl Est Cr Clr Drug Dosing ml/min eGFR BUN/Creatinine Ratio (10-20) Glucose (70-99(Fasting)) mg/dl POC Glucose 177 H 153 H 163 H (70-99) mg/dl Calcium (8.6-10.3) mg/dl Phosphorus (2.5-4.9) mg/dl Magnesium (1.7-2.4) mg/dl 07/30/24 07/30/24 07/30/24 Range/Units 06:04 05:51 00:23 WBC 17.37 H (4.8-10.8) K/ul RBC 3.71 L (4.20-5.40) M/uL Hgb 10.6 L (12.0-16.0) g/dl Hct 34.8 L (37.0-47.0) % MCV 93.8 (80.0-100.0) fL MCH 28.6 (25.0-34.0) pg MCHC 30.5 L (32.0-36.0) g/dL RDW Std Deviation 50.4 H (36.4-46.3) fL RDW Coeff of Lora 14.6 H (11.5-14.5) % Plt Count 318 (130-400) K/uL MPV 11.0 (9.4-12.4) fL Absolute Nucleated RBC (0.00-0.12) K/uL Nucleated RBC % (auto) % VBG pH (7.36-7.41) VBG pCO2 (38-50) mmHg VBG pO2 mmHg VBG HCO3 mmol/L VBG O2 Saturation % VBG Base Excess mEq/L Sodium 143 (136-145) mmol/L Potassium 5.1 (3.5-5.1) mmol/L Chloride 111 H (98-107) mmol/L Carbon Dioxide 28 (21-32) mmol/L Anion Gap 4 (3-11) BUN 54 H (6-23) mg/dl Creatinine 1.26 H D (0.6-1.2) mg/dl Est Cr Clr Drug Dosing 25.9 ml/min eGFR 42.10 BUN/Creatinine Ratio 42.9 H (10-20) Glucose 130 H (70-99(Fasting)) mg/dl POC Glucose 133 H 157 H (70-99) mg/dl Calcium 9.6 (8.6-10.3) mg/dl Phosphorus 3.8 (2.5-4.9) mg/dl Magnesium 2.2 (1.7-2.4) mg/dl Diagnostic Findings Chest X-Ray 07/27/24 17:26 EXAM: Radiograph of the Chest 1 View INDICATION: Chest pain TECHNIQUE: Frontal view of the chest. COMPARISON: 06/01/2024 FINDINGS: Lungs and pleural spaces: Stable spiculated right hilar scarring and generalized fibrotic changes. No pleural effusion or pneumothorax. Heart: Shape and configuration within normal limits allowing for technique. Mediastinum: Normal contour. Bones/joints: Degenerative changes noted in the scoliotic spine. No acute osseous abnormality noted. Soft tissues: No abnormality noted. No radiopaque foreign body noted. Upper abdomen: No abnormality noted. IMPRESSION: Stable chronic changes. No acute disease. ACT 112: N/A Electronically signed by Zabrina Aguirre 07-27-2024 6:03 PM Knee X-Ray 07/28/24 11:06 XR knee LT 1 or 2V routine HISTORY: 84 years-old Female fall, rule out fracture acute left knee pain status post fall COMPARISON: None TECHNIQUE: 2 views of the left knee FINDINGS: Limited exam secondary to positioning. The bones are demineralized. 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 Arterial calcifications. No definite acute fracture, dislocation or large joint effusion. IMPRESSION: Limited exam secondary to positioning. No acute fracture identified. ACT 112: Negative or not required by law. The above report was generated using voice recognition software. It may contain grammatical, syntax or spelling errors. Electronically signed by: Dajuan Og M.D. 07/28/2024 12:00 PM Knee X-Ray 07/28/24 11:06 XR knee RT 1 or 2V routine CLINICAL HISTORY: fall, rule out fracture COMPARISON: None FINDINGS: Osteopenia is noted. There is a moderate size joint effusion with lipohemarthrosis. There are moderate degenerative changes within the right knee, most pronounced within the patellofemoral compartment. There may be mild depression of the medial tibial plateau. There is cortical irregularity of the medial tibial plateau. IMPRESSION: Moderate size joint effusion with lipohemarthrosis suggestive of an acute intra- articular fracture. Probable medial tibial plateau fracture with minimal depression. A CT of the right knee could be obtained for further evaluation. ACT 112: Negative or not required by law. Electronically signed by: Yehuda Miller M.D. 07/28/2024 12:18 PM Chest X-Ray 07/31/24 03:59 EXAM: XR chest 1V portable CLINICAL HISTORY: sob. TECHNIQUE: An X-ray image of the chest is obtained in AP projection. COMPARISON: 07/27/2024 XR chest. FINDINGS: Lungs and pleural spaces: Prominent bilateral bronchovascular markings. These could probably represent early/mild inflammatory/infectious etiology. A mild inhomogeneous haziness is noted in the right lower zone, suggesting a possible developing infiltrate or atelectasis. No pleural effusion or pneumothorax. Heart: Shape and configuration within normal limits. Mediastinum: Normal contour. Bones/joints: Scoliosis of the thoracic spine to the left side. Arthritic changes of the left glenohumeral and acromioclavicular joints. Soft tissues: No abnormality noted. No radiopaque foreign body noted. IMPRESSION: 1. Prominent bilateral bronchovascular markings. These could probably represent early/mild inflammatory/infectious etiology. Stable. 2. A mild inhomogeneous haziness is noted in the right lower zone, suggesting a possible developing infiltrate or atelectasis. Stable. 3. Left lower lobe infiltrate or atelectasis. New finding. 4. Further evaluation with CT is recommended if clinically needed. Electronically signed by Suleiman Little 07-31-2024 05:16 AM PG Care Time/CCT Total # of Minutes Spent Total Time Spent with Patient: Total time spent is greater than 50% in coordination of care (as documented) at patient's floor/unit and/or counseling patient: I spent 75 minutes overall addressing this case: 15 min in medical data review/discussion with referring provider(s) and/or preparation for the visit 25 min in direct interaction with the patient/exam 00 min in Advance Care Planning/Goals of Care discussions as detailed above in note (must be >16min) 15 min in subsequent review and synthesis of assessment and plan 20 min communicating with other providers regarding the patient's case: nursing, primaryteam multiple communications through the day [place] [address] SUB INP/OBS CARE 3/50MIN Patient Type Established History Comprehensive Exam Comprehensive Medical Decision Making High Complexity Diagnoses Dyspnea and respiratory abnormalities R06.00; R06.89 Hallucination R44.3 Altered mental status R41.82 Weakness generalized R53.1 Palliative care by specialist Z51.5 Need for comfort care Time Spent (min) 75 Comment Additional time 25min
[2024-08-06] MEDS: LORazepam 2 MG/1 ML VIAL IV PRN (04:11)
--- NOTE | 2024-08-06 12:43 | Hospitalist Progress Note ---
Date of Service August 06, 2024 Assessment & Plan (1) Acute exacerbation of chronic obstructive pulmonary disease: (2) Acute on chronic respiratory failure with hypoxia and hypercapnia: Plan 84-year-old female w/ PMH of COPD, chronic respiratory failure with hypoxia on 3.5 L oxygen at home, pulmonary hypertension, diastolic dysfunction, moderate mitral regurgitation, severe protein calorie malnutrition, GERD, congenital single kidney, osteoporosis, contracture of hand, thrombocytosis, lumbar spinal stenosis, history of lung cancer, history of splenectomy, history of CVA, history of CKD, hypertension, depression who presents to the ED 2/2 SOB. She was being managed with the following: Acute on Chronic Hypoxic and hypercapnic respiratory failure Acute exacerbation of COPD Acute on chronic respiratory acidosis Mechanical fall; Possible right intra-articular knee fracture Acute kidney injury Likely secondary to hypoxia, hypotension Elevated high sensitive troponin Likely demand ischemia H/O Hypercalcemia History of hyperparathyroidism History of lumbar spinal stenosis Scoliosis History of splenectomy Chronic thrombocytosis Lung cancer: S/p right upper lobectomy History of CVA: Depression: Patient was converted to BELL SPINNER status 08/03. Daughter had some questions about her agitation/delirium and comfort care I and Palliative team answered her questions Zyprexa 2.5mg BID soltab added I spent a total of 50 minutes coordinating, documenting and providing care for this patient excluding time spent in performance of separately billed services Admission and Anticipated Discharge Date Admission Date: July 27, 2024 Subjective Patient seen and examined She is quite agitated and confused this AM Daughter at bedside Review of Systems Review of Systems: Unobtainable due to cognitive status Physical Exam Constitutional: Agitated and confused Eyes: PERRL, conjunctivae normal, anicteric sclerae ENMT: external ear and nose normal, oropharynx normal Respiratory: Diminished breath sounds Cardiovascular: Rate/Rhythm: regular rate and regular rhythm Gastrointestinal (Abdomen): normal bowel sounds, soft, nontender, no h epatosplenomegaly Neurologic: Agitated and confused
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
[2024-08-06] MEDS: OLANZAPINE 2.5 MG TAB PO SCH (13:54)
--- NOTE | 2024-08-07 10:32 | Hospitalist Progress Note ---
Date of Service August 07, 2024 Assessment & Plan (1) Acute exacerbation of chronic obstructive pulmonary disease: (2) Acute on chronic respiratory failure with hypoxia and hypercapnia: Plan 84-year-old female w/ PMH of COPD, chronic respiratory failure with hypoxia on 3.5 L oxygen at home, pulmonary hypertension, diastolic dysfunction, moderate mitral regurgitation, severe protein calorie malnutrition, GERD, congenital single kidney, osteoporosis, contracture of hand, thrombocytosis, lumbar spinal stenosis, history of lung cancer, history of splenectomy, history of CVA, history of CKD, hypertension, depression who presents to the ED 2/2 SOB. She was being managed with the following: Acute on Chronic Hypoxic and hypercapnic respiratory failure Acute exacerbation of COPD Acute on chronic respiratory acidosis Mechanical fall; Possible right intra-articular knee fracture Acute kidney injury Likely secondary to hypoxia, hypotension Elevated high sensitive troponin Likely demand ischemia H/O Hypercalcemia History of hyperparathyroidism History of lumbar spinal stenosis Scoliosis History of splenectomy Chronic thrombocytosis Lung cancer: S/p right upper lobectomy History of CVA: Depression: Continue SAND CUTTER CM working with daughter on hospice at a facility I spent a total of 30 minutes coordinating, documenting and providing care for this patient excluding time spent in performance of separately billed services Admission and Anticipated Discharge Date Admission Date: July 27, 2024 Subjective Patient seen and examined Currently confused. No complaints Physical Exam Constitutional: no acute distress Eyes: PERRL, conjunctivae normal, anicteric sclerae ENMT: external ear and nose normal, oropharynx normal Respiratory: On nasal cannula. Diminished breath sounds Cardiovascular: Rate/Rhythm: regular rate and regular rhythm Gastrointestinal (Abdomen): normal bowel sounds, soft, nontender, no hepatosplenomegaly Musculoskeletal: No pedal edema Neurologic: Confused
[2024-08-07] MEDS ORDERED: OLANZapine 10 MG/2.1 ML SDV IM PRN (11:53)
[2024-08-07] MEDS: OLANZapine 10 MG/2.1 ML SDV IM STA (12:10)
[2024-08-07] MEDS: OLANZapine 5 MG TABLET PO SCH (20:25)
--- NOTE | 2024-08-07 22:06 | Palliative Care Progress Note ---
Date of Service August 07, 2024 Assessment & Plan (1) Dyspnea and respiratory abnormalities: Plan: MS IV for air hunger ordered (2) Hallucination: Plan: will give zyprexa IM x 1 now then inc to Zyprexa 5mg PO BID attempted to give Ativan IV and nurse discovered her IV has been out and medications were just coming out on her linens. It is unknown how long the IV was in this out of vein position, but suspect given her increased agitation and distress, she has not received any of the meds for the past several hours/maybe the prior day. (3) Constipation: Plan: Bowel regimen ordered (4) Goals of care, counseling/discussion: (5) Altered mental status: Plan: ACP meeting bedside [id number] with daughter reviewed above findings, reccs and med changes She is in agreement lengthy discussion reinforcing talking points from yesterday about what is delirium, hallucinations at end of life and terminal agitation. Family educated that the most compassionate options now are to treat her symptoms more aggressively to provide better relief and comfort. Daughter agreed, Meds adjusted On reassessment later this afternoon, pt had a new IV securely in place, flushing well and was more comfortable and calmer/restful. (6) Weakness generalized: (7) Palliative care by specialist: (8) Need for comfort care: (9) Counseling regarding advanced directives and goals of care: Plan As above. Thank you for allowing us to participate in the ongoing care of this patient. Please page with any additional concerns. Nydia Rodriguez DNP Director, Palliative Medicine Admission and Anticipated Discharge Date Admission Date: July 27, 2024 Subjective Concepción is agitated and restless, she has intermittent but more frequent audio/visual hallucinations Ativen helps but not lasting no signif relief with low dose zyprexa at time of my visit she states she needs to get out for a walk, she needs to spe ak with the man about her sculture, she needs to go buy new perfume, she isn't happy at this hotel, it is time to head back home. appetite is fair may be constipated, dtr feels no recent BM needs a lot of redirection and distraction helps daughter at bedside has brought in Concepción's skin care regimen from home Review of Systems Review of Systems: Unobtainable due to cognitive status Physical Exam Physical Exam: Gaunt, chronically ill female with barrel chest agitated and confused at baseline but friendly with this provider alert to self, speech can be garbled at times/nonsensical; +hallucinations cannot provide HPI bitemp wasting perrla neck supple, no stridor resp effort mildly increased with use of accessory muscles noted; inspiratory and expiratory wheezing noted, lungs very diminished s1s2 abd scaphoid gen weakness bony extremities unable to follow commands skin pale, dry mild mottling BLE, venous insuff changes; ecchymosis to ankles +[facility] ICU, +delirium PG Care Time/CCT Total # of Minutes Spent Total Time Spent with Patient: Total time spent is greater than 50% in coordination of care (as documented) at patient's floor/unit and/or counseling patient: I spent 125 minutes overall addressing this case: 15 min in medical data review/discussion with referring provid er(s) and/or preparation for the visit 25 min in direct interaction with the patient/exam 45 min in Advance Care Planning/Goals of Care discussions as detailed above in note (must be >16min) 20 min in subsequent review and synthesis of assessment and plan 20 min communicating with other providers regarding the patient's case: nursing, care mgt, primary team, IV team Prolonged Care Time Prolonged Care Time: Yes Total Prolonged Care Time: 30 Advanced Care Planning 63643 Advanced Care Planning 30 Min 04917 Advanced Care Planning Additional 30 Min [place] [address] SUB INP/OBS CARE 3/50MIN (25 - SIGNIFICANT, SEPARATELY IDENTIFIABLE ) Patient Type Established Medical Decision Making High Complexity Diagnoses Dyspnea and respiratory abnormalities R06.00; R06.89 Hallucination R44.3 Constipation K59.00 Goals of care, counseling/discussion Z71.89 Altered mental status R41.82 Weakness generalized R53.1 Palliative care by specialist Z51.5 Need for comfort care Counseling regarding advanced directives and goals of care Z71.89 Additional Codes Prolonged Care Time - Prolonged Care Time: Yes ([id number]) Advanced Care Planning - 70607 Advanced Care Planning 30 Min: 90726 Advanced Ca re Planning 30 Min ([id number]) Advanced Care Planning - 40689 Advanced Care Planning Additional 30 Min: 97222 Advanced Care Planning Additional 30 Min ([id number])
[2024-08-08] MEDS: DOCUSATE SODIUM/SENNA 50/8.6MG TAB PO SCH (07:09)
--- NOTE | 2024-08-08 10:25 | Hospitalist Progress Note ---
Date of Service August 08, 2024 Assessment & Plan (1) Acute exacerbation of chronic obstructive pulmonary disease: (2) Acute on chronic respiratory failure with hypoxia and hypercapnia: Plan 84-year-old female w/ PMH of COPD, chronic respiratory failure with hypoxia on 3.5 L oxygen at home, pulmonary hypertension, diastolic dysfunction, moderate mitral regurgitation, severe protein calorie malnutrition, GERD, congenital single kidney, osteoporosis, contracture of hand, thrombocytosis, lumbar spinal stenosis, history of lung cancer, history of splenectomy, history of CVA, history of CKD, hypertension, depression who presents to the ED 2/2 SOB. 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 with daughter on hospice at a facility I spent a total of 30 minutes coordinating, documenting and providing care for this patient excluding time spent in performance of separately billed services Admission and Anticipated Discharge Date Admission Date: July 27, 2024 Subjective Patient seen and examined Alert and oriented to person and place Reports some pain in legs Denied other complaints Physical Exam Constitutional: no acute distress Eyes: PERRL, conjunctivae normal, anicteric sclerae ENMT: external ear and nose normal, oropharynx normal Respiratory: Diminished breath sounds Cardiovascular: Rate/Rhythm: regular rate and regular rhythm Gastrointestinal (Abdomen): normal bowel sounds, soft, nontender, no hepatosplenomegaly Results & Data Results & Data Vital Signs (Past 12 Hours) Vital Signs O2 Del Method O2 Flow Rate 08/08/24 07:05 Nasal Cannula 2.5
[2024-08-08] MEDS: POLYETHYLENE (MIRALAX) 17 GM PACK PO PRN (15:22)
--- NOTE | 2024-08-09 10:58 | Hospitalist Progress Note ---
Date of Service August 09, 2024 Assessment & Plan (1) Acute exacerbation of chronic obstructive pulmonary disease: (2) Acute on chronic respiratory failure with hypoxia and hypercapnia: Plan 84-year-old female w/ PMH of COPD, chronic respiratory failure with hypoxia on 3.5 L oxygen at home, pulmonary hypertension, diastolic dysfunction, moderate mitral regurgitation, severe protein calorie malnutrition, GERD, congenital single kidney, osteoporosis, contracture of hand, thrombocytosis, lumbar spinal stenosis, history of lung cancer, history of splenectomy, history of CVA, history of CKD, hypertension, depression who presents to the ED 2/2 SOB. She was being managed with the following: Acute on Chronic Hypoxic and hypercapnic respiratory failure Acute exacerbation of COPD Acute on chronic respiratory acidosis Mechanical fall; Possible right intra-articular knee fracture Acute kidney injury Likely secondary to hypoxia, hypotension Elevated high sensitive troponin Likely demand ischemia H/O Hypercalcemia History of hyperparathyroidism History of lumbar spinal stenosis Scoliosis History of splenectomy Chronic thrombocytosis Lung cancer: S/p right upper lobectomy History of CVA: Depression: Continue CONTINUOUS PILLOWCASE CUTTER CM working with daughter on hospice at a facility I spent a total of 25 minutes coordinating, documenting and providing care for this patient excluding time spent in performance of separately billed services Admission and Anticipated Discharge Date Admission Date: July 27, 2024 Subjective Patient seen and examined Patient has no complaints Physical Exam Constitutional: no acute distress Eyes: PERRL, conjunctivae normal, anicteric sclerae ENMT: external ear and nose normal, oropharynx normal Respiratory: Diminished breath sounds Cardiovascular: Rate/Rhythm: regular rate and regular rhythm Gastrointestinal (Abdomen): normal bowel sounds, soft, nontender, no hepatosplenomegaly Musculoskeletal: No pedal edema Neurologic: AOx3 Results & Data Results & Data Vital Signs (Past 12 Hours) Vital Signs O2 Del Method O2 Flow Rate 08/09/24 07:30 Nasal Cannula 2.5
--- NOTE | 2024-08-09 19:33 | XRay Report ---
EXAM: XR chest 1V portable CLINICAL HISTORY: Choking. TECHNIQUE: An X-ray image of the chest is obtained in AP projection. COMPARISON: With the prior study dated 07/31/2024. FINDINGS: Pulmonary Parenchyma: Unchanged bilateral hialr vascular congestion noted. Unchanged bilateral basal atelectatic bands were noted. Still noted left lower lung zone haziness. Unchanged right hilr radio-opaque ovoid shadow, referring to enlarged calcified lymph node. No evidence of pleural effusion or pleural thickening. Heart and Mediastinum: Heart size and shape are normal. No mediastinal widening or masses. No hilar or mediastinal lymphadenopathy. Bony Thorax: Scoliosis of the thoracic spine noted with apex to the right side. The bony thorax appears intact without fractures or deformities. Soft Tissues: Soft tissues overlying the chest wall are unremarkable. IMPRESSION: 1. Unchanged bilateral hilar vascular congestion was noted. 2. Unchanged bilateral basal atelectatic bands were noted. 3. Still noted left lower lung zone haziness. 4. Unchanged right hilr radio-opaque ovoid shadow, referring to enlarged calcified lymph node. 5. No gross interval change since the prior study. Electronically signed by Suleiman Little 08-09-2024 7:32 PM
[2024-08-10 07:45] VITALS: BP 158/83; PULSE 94; RESP 16; TEMP 97.9
--- NOTE | 2024-08-10 11:21 | Hospitalist Progress Note ---
Date of Service August 10, 2024 Assessment & Plan (1) Acute exacerbation of chronic obstructive pulmonary disease: (2) Acute on chronic respiratory failure with hypoxia and hypercapnia: Plan 84-year-old female w/ PMH of COPD, chronic respiratory failure with hypoxia on 3.5 L oxygen at home, pulmonary hypertension, diastolic dysfunction, moderate mitral regurgitation, severe protein calorie malnutrition, GERD, congenital single kidney, osteoporosis, contracture of hand, thrombocytosis, lumbar spinal stenosis, history of lung cancer, history of splenectomy, history of CVA, history of CKD, hypertension, depression who presents to the ED 2/2 SOB. 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 Diet was changed to minced and moist Currently reports some cough Physical Exam Constitutional: no acute distress Eyes: PERRL, conjunctivae normal, anicteric sclerae ENMT: external ear and nose normal, oropharynx normal Respiratory: On nasal oxygen, diminished breath sounds Cardiovascular: Rate/Rhythm: regular rate and regular rhythm Gastrointestinal (Abdomen): normal bowel sounds, soft, nontender, no hepatosplenomegaly Musculoskeletal: No pedal edema Neurologic: PERRL, EOMI, accommodation nl, no face palsy, no dysarthria Results & Data Results & Data Vital Signs (Past 12 Hours) Vital Signs Temp Pulse Resp BP Pulse Ox O2 Del Method O2 Flow Rate 08/10/24 07:45 Nasal Cannula 3 08/10/24 07:44 36.6 C 94 H 16 158/83 H 100 Nasal Cannula 3
--- NOTE | 2024-08-10 16:51 | Palliative Care Progress Note ---
Date of Service August 10, 2024 Assessment & Plan (1) Palliative care by specialist: Plan: Palliative care will continue to follow for ongoing EOL care and family support. Pt transitioned to PATIENT ACCESS MANAGER on 08/03/24 and has had minimal daily needs for PRN comfort medications, she will continue to be managed as PATIENT ACCESS MANAGER in hospital pending SNF placement. (2) Need for comfort care: Plan: EOL Symptom manamgement: Pain/dyspnea/tachypnea Morphine 2mg IVP PRN [id number] Consider titratable morphine drip if pt requires >3 PRN doses in under two consecutive hours. Nausea/vomitting zofran 4mg IVP q4h PRN Agitation ativan 0.5mg IVP q4h PRN Hyperactive delirium haldol 5mg IVP q6h PRN Secretions - if repositioning not effective robinul 0.4mg IV q4h PRN atropine SL 3 drops Q1h PRN Nursing care: Discontinue all medications not directed towards comfort. Detether pt from IV tubing, monitor cables, and check vitals once per shift. Please continue HFNC and titrate down as able for patient comfort. Use medications above PRN for dyspnea/tachypnea and do not increase oxygen once titrated down. Assess q1h for pain/dyspnea and treat accordingly. Plan Palliative care will continue to follow for ongoing EOL pt care and family support. Thank you for including Palliative Care in the management of this patient. Please call with any questions or concerns regarding this consultation. Admission and Anticipated Discharge Date Admission Date: July 27, 2024 Subjective Assessed pt at bedside, she was transitioned to PATIENT ACCESS MANAGER on 08/03/24. Pt is awake and alert and pleasantly communicative today. She only c/o mild dyspnea at rest. She appears comfortable, pale skin, extremities cool to touch Respiratory effort increased, rate 24/min with no periods of apnea. No visitors at bedside. Review of Systems Review of Systems: Unobtainable due to cognitive status Physical Exam Constitutional: no acute distress Eyes: PERRL, conjunctivae normal, anicteric sclerae ENMT: external ear and nose normal, oropharynx normal Respiratory: On nasal oxygen, diminished breath sounds Cardiovascular: Rate/Rhythm: regular rate and regular rhythm Gastrointestinal (Abdomen): normal bowel sounds, soft, nontender, no hepatosplenomegaly Musculoskeletal: No pedal edema Neurologic: PERRL, EOMI, accommodation nl, no face palsy, no dysarthria Results & Data Vital Signs (Past 12 Hours) Vital Signs Temp Pulse Resp BP Pulse Ox O2 Del Method O2 Flow Rate 08/10/24 07:45 Nasal Cannula 3 08/10/24 07:44 36.6 C 94 H 16 158/83 H 100 Nasal Cannula 3 Laboratory Results No further labs or diagnostics in concert with comfort directed care. Diagnostic Findings No further labs or diagnostics in concert with comfort directed care. Medications Administered Current Inpatient Medications Acetaminophen (Acetaminophen 325 Mg Tab) 650 mg PO Q4H PRN PRN Reason: Pain or Fever Stop: 08/26/24 21:17 Last Admin: 08/09/24 21:51 Dose: 650 mg Escitalopram Oxalate (Escitalopram Oxalate 20 Mg Tab) 20 mg PO DAILY [facility] Stop: 08/27/24 08:59 Last Admin: 08/10/24 07:59 Dose: 20 mg Glycopyrrolate (Glycopyrrolate 0.2 Mg/Ml Vial) 0.4 mg IV Q4H PRN PRN Reason: Rattling Secretions or Pulm Congestion Stop: 09/02/24 13:57 Haloperidol (Haloperidol Oral Soln 2 Mg/Ml) 1 mg PO Q4H PRN PRN Reason: agitation,delirium,restless Stop: 09/02/24 13:57 Last Admin: 08/05/24 10:44 Dose: 1 mg Hydroxyzine HCl (Hydroxyzine Hcl 10 Mg Tab) 10 mg PO QID PRN PRN Reason: Anxiety Stop: 08/30/24 03:54 Last Admin: 08/09/24 05:15 Dose: 10 mg Methylprednisolone 20 mg/ (Syringe) 0.32 mls @ 1.5 mls/min IV BID [facility] Stop: 09/02/24 20:59 Last Admin: 08/10/24 07:59 Dose: 1.5 mls/min Lorazepam (Lorazepam 2 Mg/1 Ml Vial) 1 mg IV Q4H PRN PRN Reason: anxiety,spasms Stop: 09/02/24 13:57 Last Admin: 08/10/24 11:03 Dose: 1 mg Mirtazapine (Mirtazapine Tab 15 Mg Tab) 7.5 mg PO HS [facility] Stop: 08/26/24 21:17 Last Admin: 08/09/24 21:51 Dose: 7.5 mg Morphine Sulfate (Morphine Sulfate 2 Mg/Ml Carp) 2 mg IV Q15M PRN PRN Reason: pain, dyspnea to keep RR<20bpm Stop: 08/17/24 13:57 Last Admin: 08/10/24 12:26 Dose: 2 mg Olanzapine (Olanzapine 10 Mg/2.1 Ml Sdv) 5 mg IM BID PRN PRN Reason: Agitation Stop: 09/06/24 20:59 Olanzapine (Olanzapine 5 Mg Tablet) 5 mg PO BID [facility] Stop: 09/06/24 20:59 Last Admin: 08/10/24 07:59 Dose: 5 mg Ondansetron HCl (Ondansetron Inj 2 Mg/Ml 2 Ml Vial) 4 mg IV Q4H PRN PRN Reason: Nausea &/or Vomiting Stop: 09/02/24 13:57 Polyethylene Glycol (Polyethylene (Miralax) 17 Gm Pack) 17 gm PO DAILY PRN PRN Reason: Constipation Stop: 09/06/24 22:29 Last Admin: 08/08/24 15:22 Dose: 17 gm Senna/Docusate Sodium (Docusate Sodium/Senna 50/8.6mg Tab) 2 tab PO BID [facility] Stop: 08/14/24 08:59 Last Admin: 08/10/24 08:00 Dose: Not Given Trolamine Salicylate (Trolamine Salicylate 10% Crm 255 Appln/85 Gm Tube) 1 appln EXT BID [facility] Stop: 08/26/24 21:17 Last Admin: 08/10/24 08:00 Dose: 1 appln PG Care Time/CCT Total # of Minutes Spent Total Time Spent with Patient: Total time spent is greater than 50% in coordination of care (as documented) at patient's floor/unit and/or counseling patient: C[place] [address] SUB INP/OBS CARE 2/35MIN Patient Type Established History Expanded Problem Focused Exam Expanded Problem Focused Medical Decision Making Moderate Complexity Diagnoses Palliative care by specialist Z51.5 Need for comfort care
--- NOTE | 2024-08-11 10:46 | Hospitalist Progress Note ---
Date of Service August 11, 2024 Assessment & Plan (1) Acute exacerbation of chronic obstructive pulmonary disease: (2) Acute on chronic respiratory failure with hypoxia and hypercapnia: Plan 84-year-old female w/ PMH of COPD, chronic respiratory failure with hypoxia on 3.5 L oxygen at home, pulmonary hypertension, diastolic dysfunction, moderate mitral regurgitation, severe protein calorie malnutrition, GERD, congenital single kidney, osteoporosis, contracture of hand, thrombocytosis, lumbar spinal stenosis, history of lung cancer, history of splenectomy, history of CVA, history of CKD, hypertension, depression who presents to the ED 2/2 SOB. 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 working with daughter on hospice at a facility I spent a total of 25 minutes coordinating, documenting and providing care for this patient excluding time spent in performance of separately billed services Admission and Anticipated Discharge Date Admission Date: July 27, 2024 Subjective Patient seen and examined Has no complaints this AM Physical Exam Constitutional: + ill appearing; no acute distress Eyes: PERRL, conjunctivae normal, anicteric sclerae ENMT: external ear and nose normal, oropharynx normal Respiratory: On nasal cannula, Diminished breath sounds Cardiovascular: Rate/Rhythm: regular rate and regular rhythm Gastrointestinal (Abdomen): normal bowel sounds, soft, nontender, no hepatosplenomegaly Neurologic: PERRL, EOMI, accommodation nl, no face palsy, no dysarthria Psychiatric: Alert and oriented to person and place only today. Cooperative Results & Data Results & Data Vital Signs (Past 12 Hours) Vital Signs O2 Del Method O2 Flow Rate 08/11/24 07:20 Nasal Cannula 3
--- NOTE | 2024-08-11 11:27 | Palliative Care Progress Note ---
Date of Service August 11, 2024 Assessment & Plan (1) Palliative care by specialist: Plan: Palliative care will continue to follow for ongoing EOL care and family support. Pt transitioned to LION TAMER on 08/03/24 and has had minimal daily needs for PRN comfort medications, she will continue to be managed as LION TAMER in hospital pending SNF placement. (2) Need for comfort care: Plan: EOL Symptom manamgement: Pain/dyspnea/tachypnea Morphine 2mg IVP PRN [id number] Consider titratable morphine drip if pt requires >3 PRN doses in under two consecutive hours. Nausea/vomitting zofran 4mg IVP q4h PRN Agitation ativan 0.5mg IVP q4h PRN Hyperactive delirium haldol 5mg IVP q6h PRN Secretions - if repositioning not effective robinul 0.4mg IV q4h PRN atropine SL 3 drops Q1h PRN Nursing care: Discontinue all medications not directed towards comfort. Detether pt from IV tubing, monitor cables, and check vitals once per shift. Please continue HFNC and titrate down as able for patient comfort. Use medications above PRN for dyspnea/tachypnea and do not increase oxygen once titrated down. Assess q1h for pain/dyspnea and treat accordingly. Plan Palliative care will continue to follow for ongoing EOL pt care and family support. Thank you for including Palliative Care in the management of this patient. Please call with any questions or concerns regarding this consultation. Admission and Anticipated Discharge Date Admission Date: July 27, 2024 Subjective Assessed pt at bedside, she was transitioned to LION TAMER on 08/03/24. Pt is drowsy but arousable and pleasantly communicative today. She only c/o mild dyspnea at rest. She appears comfortable, pale skin, extremities cool to touch Respiratory effort increased, rate 22/min with no periods of apnea. No visitors at bedside. Review of Systems Review of Systems: All systems reviewed & are unremarkable except as noted in Subjective Physical Exam Constitutional: no acute distress Eyes: PERRL, conjunctivae normal, anicteric sclerae ENMT: external ear and nose normal, oropharynx normal Respiratory: On nasal oxygen, diminished breath sounds Cardiovascular: Rate/Rhythm: regular rate and regular rhythm Gastrointestinal (Abdomen): normal bowel sounds, soft, nontender, no hepatosplenomegaly Musculoskeletal: No pedal edema Neurologic: PERRL, EOMI, accommodation nl, no face palsy, no dysarthria Results & Data Vital Signs (Past 12 Hours) Vital Signs O2 Del Method O2 Flow Rate 08/11/24 07:20 Nasal Cannula 3 Laboratory Results No further labs or diagnostics in concert with comfort directed care. Diagnostic Findings No further labs or diagnostics in concert with comfort directed care. Medications Administered Current Inpatient Medications Acetaminophen (Acetaminophen 325 Mg Tab) 650 mg PO Q4H PRN PRN Reason: Pain or Fever Stop: 08/26/24 21:17 Last Admin: 08/10/24 21:22 Dose: 650 mg Escitalopram Oxalate (Escitalopram Oxalate 20 Mg Tab) 20 mg PO DAILY [facility] Stop: 08/27/24 08:59 Last Admin: 08/11/24 10:53 Dose: Not Given Glycopyrrolate (Glycopyrrolate 0.2 Mg/Ml Vial) 0.4 mg IV Q4H PRN PRN Reason: Rattling Secretions or Pulm Congestion Stop: 09/02/24 13:57 Haloperidol (Haloperidol Oral Soln 2 Mg/Ml) 1 mg PO Q4H PRN PRN Reason: agitation,delirium,restless Stop: 09/02/24 13:57 Last Admin: 08/05/24 10:44 Dose: 1 mg Hydroxyzine HCl (Hydroxyzine Hcl 10 Mg Tab) 10 mg PO QID PRN PRN Reason: Anxiety Stop: 08/30/24 03:54 Last Admin: 08/09/24 05:15 Dose: 10 mg Lorazepam (Lorazepam 2 Mg/1 Ml Vial) 1 mg IV Q4H PRN PRN Reason: anxiety,spasms Stop: 09/02/24 13:57 Last Admin: 08/10/24 11:03 Dose: 1 mg Mirtazapine (Mirtazapine Tab 15 Mg Tab) 7.5 mg PO HS [facility] Stop: 08/26/24 21:17 Last Admin: 08/10/24 21:22 Dose: 7.5 mg Morphine Sulfate (Morphine Sulfate 2 Mg/Ml Carp) 2 mg IV Q15M PRN PRN Reason: pain, dyspnea to keep RR<20bpm Stop: 08/17/24 13:57 Last Admin: 08/10/24 12:26 Dose: 2 mg Olanzapine (Olanzapine 10 Mg/2.1 Ml Sdv) 5 mg IM BID PRN PRN Reason: Agitation Stop: 09/06/24 20:59 Olanzapine (Olanzapine 5 Mg Tablet) 5 mg PO BID [facility] Stop: 09/06/24 20:59 Last Admin: 08/11/24 10:53 Dose: Not Given Ondansetron HCl (Ondansetron Inj 2 Mg/Ml 2 Ml Vial) 4 mg IV Q4H PRN PRN Reason: Nausea &/or Vomiting Stop: 09/02/24 13:57 Polyethylene Glycol (Polyethylene (Miralax) 17 Gm Pack) 17 gm PO DAILY PRN PRN Reason: Constipation Stop: 09/06/24 22:29 Last Admin: 08/08/24 15:22 Dose: 17 gm Senna/Docusate Sodium (Docusate Sodium/Senna 50/8.6mg Tab) 2 tab PO BID [facility] Stop: 08/14/24 08:59 Last Admin: 08/11/24 08:11 Dose: Not Given Trolamine Salicylate (Trolamine Salicylate 10% Crm 255 Appln/85 Gm Tube) 1 appln EXT BID [facility] Stop: 08/26/24 21:17 Last Admin: 08/11/24 08:12 Dose: 1 appln PG Care Time/CCT Total # of Minutes Spent Total Time Spent with Patient: Total time spent is greater than 50% in coordination of care (as documented) at patient's floor/unit and/or counseling patient: Coding [place] [address] SUB INP/OBS CARE 2/35MIN Patient Type Established History Problem Focused Exam Problem Focused Medical Decision Making Low Complexity Diagnoses Palliative care by specialist Z51.5 Need for comfort care
[2024-08-11] MEDS: GLYCOPYRROLATE 0.2 MG/ML VIAL IV PRN (18:33)
[2024-08-12] MEDS: IPRATROPIUM BROMIDE NEB SOLN 0.02% 0.5MG/2.5ML VIAL NEB PRN (08:53)
[2024-08-12] MEDS: LEVALBUTEROL 1.25 MG/3 ML NEB NEB PRN (08:53)
[2024-08-12 08:54] VITALS: O2SAT 95
[2024-08-12] MEDS: UMECLIDINIUM/VILANTEROL 62.5/25MCG 7 PUFFS/INHALER INH SCH (09:13)
[2024-08-12] MEDS: FLUTICASONE FUROATE 100MCG 14 PUFFS/INHALER INH SCH (09:13)
--- NOTE | 2024-08-12 11:00 | Palliative Care Progress Note ---
Date of Service August 12, 2024 Assessment & Plan (1) Palliative care by specialist: Plan: Palliative care will continue to follow for ongoing EOL care and family support. Pt transitioned to ART HISTORY INSTRUCTOR on 08/03/24 and has had minimal daily needs for PRN comfort medications, she will continue to be managed as ART HISTORY INSTRUCTOR in hospital pending SNF placement for ongoing hospice care. (2) Need for comfort care: Plan: EOL Symptom manamgement: Pain/dyspnea/tachypnea Morphine 2mg IVP PRN [id number] Consider titratable morphine drip if pt requires >3 PRN doses in under two consecutive hours. Nausea/vomitting zofran 4mg IVP q4h PRN Agitation ativan 0.5mg IVP q4h PRN Hyperactive delirium haldol 5mg IVP q6h PRN Secretions - if repositioning not effective robinul 0.4mg IV q4h PRN atropine SL 3 drops Q1h PRN Nursing care: Discontinue all medications not directed towards comfort. Detether pt from IV tubing, monitor cables, and check vitals once per shift. Please continue HFNC and titrate down as able for patient comfort. Use medications above PRN for dyspnea/tachypnea and do not increase oxygen once titrated down. Assess q1h for pain/dyspnea and treat accordingly. Plan Palliative care will continue to follow for ongoing EOL pt care and family support. Thank you for including Palliative Care in the management of this patient. Please call with any questions or concerns regarding this consultation. Admission and Anticipated Discharge Date Admission Date: July 27, 2024 Subjective Assessed pt at bedside, she was transitioned to ART HISTORY INSTRUCTOR on 08/03/24. Pt is awake, alert and pleasantly communicative today. She c/o pain in her right leg and mild dyspnea at rest. Her symptoms have been well managed with occassional PRN medications (1-2 doses per day). She appears comfortable, pale skin, extremities cool to touch. Respiratory effort normal, rate 20/min. No visitors at bedside. She is ART HISTORY INSTRUCTOR pending SNF placement for ongoing hospice care. Review of Systems Review of Systems: All systems reviewed & are unremarkable except as noted in Subjective Physical Exam Constitutional: no acute distress Eyes: PERRL, conjunctivae normal, anicteric sclerae ENMT: external ear and nose normal, oropharynx normal Respiratory: On nasal oxygen, diminished breath sounds Cardiovascular: Rate/Rhythm: regular rate and regular rhythm Gastrointestinal (Abdomen): normal bowel sounds, soft, nontender, no hepatosplenomegaly Musculoskeletal: No pedal edema Neurologic: PERRL, EOMI, accommodation nl, no face palsy, no dysarthria Results & Data Vital Signs (Past 12 Hours) Vital Signs Pulse Resp Pulse Ox O2 Del Method O2 Flow Rate 08/12/24 08:54 94 H 16 95 Nasal Cannula 3 08/12/24 07:16 Nasal Cannula 3 08/12/24 01:12 Nasal Cannula 3 Laboratory Results No further labs or diagnostics in concert with comfort directed care. Diagnostic Findings No further labs or diagnostics in concert with comfort directed care. Medications Administered Current Inpatient Medications Acetaminophen (Acetaminophen 325 Mg Tab) 650 mg PO Q4H PRN PRN Reason: Pain or Fever Stop: 08/26/24 21:17 Last Admin: 08/10/24 21:22 Dose: 650 mg Escitalopram Oxalate (Escitalopram Oxalate 20 Mg Tab) 20 mg PO DAILY [facility] Stop: 08/27/24 08:59 Last Admin: 08/12/24 09:16 Dose: 20 mg Fluticasone Furoate (Fluticasone Furoate 100mcg 14 Puffs/Inhaler) 1 puffs INH DAILY [facility] Stop: 09/11/24 08:59 Last Admin: 08/12/24 09:13 Dose: 1 puffs Glycopyrrolate (Glycopyrrolate 0.2 Mg/Ml Vial) 0.4 mg IV Q4H PRN PRN Reason: Rattling Secretions or Pulm Congestion Stop: 09/02/24 13:57 Last Admin: 08/11/24 18:33 Dose: 0.4 mg Haloperidol (Haloperidol Oral Soln 2 Mg/Ml) 1 mg PO Q4H PRN PRN Reason: agitation,delirium,restless Stop: 09/02/24 13:57 Last Admin: 08/05/24 10:44 Dose: 1 mg Hydroxyzine HCl (Hydroxyzine Hcl 10 Mg Tab) 10 mg PO QID PRN PRN Reason: Anxiety Stop: 08/30/24 03:54 Last Admin: 08/09/24 05:15 Dose: 10 mg Ipratropium Truman (Ipratropium Truman Neb Soln 0.02% 0.5mg/2.5ml Vial) 0.5 mg NEB Q4H PRN PRN Reason: sob/wheezing Stop: 09/11/24 08:14 Last Admin: 08/12/24 08:53 Dose: 0.5 mg Levalbuterol HCl (Levalbuterol 1.25 Mg/3 Ml Neb) 1.25 mg NEB Q4H PRN PRN Reason: Shortness Of Breath Or Wheezing Stop: 09/11/24 08:08 Last Admin: 08/12/24 08:53 Dose: 1.25 mg Lorazepam (Lorazepam 2 Mg/1 Ml Vial) 1 mg IV Q4H PRN PRN Reason: anxiety,spasms Stop: 09/02/24 13:57 Last Admin: 08/10/24 11:03 Dose: 1 mg Mirtazapine (Mirtazapine Tab 15 Mg Tab) 7.5 mg PO HS [facility] Stop: 08/26/24 21:17 Last Admin: 08/11/24 20:00 Dose: 7.5 mg Morphine Sulfate (Morphine Sulfate 2 Mg/Ml Carp) 2 mg IV Q15M PRN PRN Reason: pain, dyspnea to keep RR<20bpm Stop: 08/17/24 13:57 Last Admin: 08/12/24 07:35 Dose: 2 mg Olanzapine (Olanzapine 10 Mg/2.1 Ml Sdv) 5 mg IM BID PRN PRN Reason: Agitation Stop: 09/06/24 20:59 Olanzapine (Olanzapine 5 Mg Tablet) 5 mg PO BID [facility] Stop: 09/06/24 20:59 Last Admin: 08/12/24 09:16 Dose: 5 mg Ondansetron HCl (Ondansetron Inj 2 Mg/Ml 2 Ml Vial) 4 mg IV Q4H PRN PRN Reason: Nausea &/or Vomiting Stop: 09/02/24 13:57 Polyethylene Glycol (Polyethylene (Miralax) 17 Gm Pack) 17 gm PO DAILY PRN PRN Reason: Constipation Stop: 09/06/24 22:29 Last Admin: 08/08/24 15:22 Dose: 17 gm Senna/Docusate Sodium (Docusate Sodium/Senna 50/8.6mg Tab) 2 tab PO BID [facility] Stop: 08/14/24 08:59 Last Admin: 08/12/24 09:15 Dose: 2 tab Trolamine Salicylate (Trolamine Salicylate 10% Crm 255 Appln/85 Gm Tube) 1 appln EXT BID [facility] Stop: 08/26/24 21:17 Last Admin: 08/12/24 09:17 Dose: 1 appln Umeclidinium/Vilanterol (Umeclidinium/Vilanterol 62.5/25mcg 7 Puffs/Inhaler) 1 puffs INH DAILY [facility] Stop: 09/11/24 08:59 Last Admin: 08/12/24 09:13 Dose: 1 puffs PG Care Time/CCT Total # of Minutes Spent Total Time Spent with Patient: Total time spent is greater than 50% in coordination of care (as documented) at patient's floor/unit and/or counseling patient: Coding [place] [address] SUB INP/OBS CARE 05/23MIN Patient Type Established History Problem Focused Exam Problem Focused Medical Decision Making Low Complexity Diagnoses Palliative care by specialist Z51.5 Need for comfort care
--- NOTE | 2024-08-12 16:56 | Hospitalist Progress Note ---
Date of Service August 12, 2024 Assessment & Plan (1) Acute exacerbation of chronic obstructive pulmonary disease: (2) Acute on chronic respiratory failure with hypoxia and hypercapnia: Plan per previous hospitalist notes with addendum: 84-year-old female w/ PMH of COPD, chronic respiratory failure with hypoxia on 3.5 L oxygen at home, pulmonary hypertension, diastolic dysfunction, moderate mitral regurgitation, severe protein calorie malnutrition, GERD, congenital single kidney, osteoporosis, contracture of hand, thrombocytosis, lumbar spinal stenosis, history of lung cancer, history of splenectomy, history of CVA, history of CKD, hypertension, depression who presents to the ED 2/2 SOB. 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 daughter on hospice at a facility 08/12 patient remained stable overall Comfortable, denies pain, shortness of breath Plan to transition to hospice facility tomorrow as per case repairer Admission and Anticipated Discharge Date Admission Date: July 27, 2024 Subjective seen resting in bed, sleeping but easily awakened 3 L of O2 via nasal cannula In good spirits States she feels fine overall Denies shortness of breath, pain Requested to decrease Ativan to 0.5 mg IV each time No other new symptoms Review of Systems Review of Systems: all noted and negative except for above Physical Exam Physical Exam: General- oriented x 3, not in distress, speaks in sentences with no effort or accessory muscle use weak Eyes- anicteric Neck- no JVD Lungs- clear breath sounds bilaterally, no rales/wheezes Heart- normal rate, regular rhythm; no murmurs Abdomen- normal bowel sounds, nondistended, soft, nontender Extremities- no pretibial edema, no calf tenderness Neuro- alert, oriented x 3; no gross focal neurologic deficits Skin- warm & dry Results & Data Results & Data Vital Signs (Past 12 Hours) Vital Signs Pulse Resp Pulse Ox O2 Del Method O2 Flow Rate 08/12/24 08:54 94 H 16 95 Nasal Cannula 3 08/12/24 07:16 Nasal Cannula 3 all noted and reviewed including below
[2024-08-13] MEDS: LORazepam 2 MG/1 ML VIAL IV PRN (01:28)
--- NOTE | 2024-08-13 09:49 | Discharge Summary ---
Discharge Summary Date of Service August 13, 2024 Principal Dx & Hospital Course #1 = Principal Diagnosis (1) Acute exacerbation of chronic obstructive pulmonary disease: (2) Acute on chronic respiratory failure with hypoxia and hypercapnia: Plan per previous hospitalist notes with addendum: 84-year-old female w/ PMH of COPD, chronic respiratory failure with hypoxia on 3.5 L oxygen at home, pulmonary hypertension, diastolic dysfunction, moderate mitral regurgitation, severe protein calorie malnutrition, GERD, congenital single kidney, osteoporosis, contracture of hand, thrombocytosis, lumbar spinal stenosis, history of lung cancer, history of splenectomy, history of CVA, history of CKD, hypertension, depression who presents to the ED 2/2 SOB. She was being managed with the following: #Acute on Chronic Hypoxic and hypercapnic respiratory failure #Acute exacerbation of COPD #Acute on chronic respiratory acidosis Patient presents to the hospital after a mechanical fall. She started to feel short of breath after the fall. At baseline patient is at 3 to 4 L of oxygen VBG on admission showed pH of 7.12 with pCO2 of 96 mmHg Patient was given Ativan for anxiety and was placed on BiPAP. budesonide and formoterol nebs twice daily ceftriaxone and doxycycline IV Solu-Medrol Pulmonology consulted for co-management given severe COPD requiring bipap. Pt needing morphine freq for air hunger. Pt dtr aware of pt's poor prognosis, palliative on board. patient transitioned to comfort measures 08/03 continue palliative care including PRN morphine, ativan Mechanical fall; Possible right intra-articular knee fracture Patient reported right knee pain; found to have moderate-sized effusion as well X-ray of the knee shows possible acute intra articular fracture; probable medial plateau fracture. Orthopedic consulted for comanagement, Recommends nonoperative management. Nonweightbearing on the right leg. Appreciate recs 07/28. - ORN pain meds Acute kidney injury Likely secondary to hypoxia, hypotension Elevated high sensitive troponin Likely demand ischemia H/O Hypercalcemia History of hyperparathyroidism History of lumbar spinal stenosis Scoliosis Bilateral lower EXTR contractures History of splenectomy Chronic thrombocytosis Lung cancer: S/p right upper lobectomy History of CVA Depression: Lexapro and Remeron,continue Notes For Next Care Provider Medication Changes From Visit per med rec Admission HPI Per Admitting Provider This is an 84-year-old female with past medical history significant for COPD, chronic respiratory failure with hypoxia on 3.5 L oxygen at home, pulmonary hyp ertension, diastolic dysfunction, moderate mitral regurgitation, severe protein calorie malnutrition, GERD, congenital single kidney, osteoporosis, contracture of hand, thrombocytosis, lumbar spinal stenosis, history of lung cancer, history of splenectomy, history of CVA, history of CKD, hypertension, depression who presents to the ED 2/2 SOB. Daughter is at bedside who helps elicit history. Hx also obtained from external chart review. Daughter provides most of history due to pt inability to breath appropriately. Daughter states she feels this is anxiety driven. She reports trying to get off the toilet and took out her daughters knee and they both fell. After that she became acutely SOB. Prior to today she was in her normal state of health. She had been doing well since her last discharge. She did have one episode of diarrhea today. She currently is receiving a nebulizer, but doesn't feel it is any better. She states the bipap makes her anxious. At baseline she is on 3.5Lof O2 at baseline with 92%. Daughter reports she has been having high blood pressure. She has been noticing 140s systolic with occasional 180s. She denies any recent f/c/s, dizziness, chest pain, n/v, abd pain. In ED pt was visibly in respiratory distress. CXR w/o acute abnormality. She did have a leukocytosis of 22k, initial trop of 21 and a normal resp biofire. Pt was requiring 6L via NC. Bipap was ordered, but pt refused due to feeling anxious. She was agreeable to trialing it after receiving ativan. She receiving IV solumedrol and ceftriaxone. Admission Exam Per Admitting Provider GENERAL APPEARANCE: AxOx4, lethargic woman with resp distress HEENT: NC, AT. MMM. EOMI, clear conjunctiva, oropharynx clear. NECK: Supple without lymphadenopathy. No stiffness or restricted ROM. HEART: tachycardic LUNGS: coarse breathsounds bilaterally, no wheezing, shallow breaths with poor effort, however, paradoxical breathing noted ABDOMEN: Soft, nontender, nondistended with good bowel sounds heard. BACK: No CVAT, no obvious deformity. EXTREMITIES: Without cyanosis, clubbing or edema. NEUROLOGICAL: Grossly nonfocal. Alert and oriented, BLE contractures noted Skin: Warm and dry, scattered ecchymosis on BLE Discharge Exam General- oriented x 3, not in distress, speaks in sentences with no effort or accessory muscle use weak Eyes- anicteric Neck- no JVD Lungs- clear breath sounds bilaterally, no rales/wheezes Heart- normal rate, regular rhythm; no murmurs Abdomen- normal bowel sounds, nondistended, soft, nontender Extremities- no pretibial edema, no calf tenderness Neuro- alert, oriented x 3; no gross focal neurologic deficits Skin- warm & dry Updated Medication List Medication Instructions Recorded Confirmed Type Bifidobacterium infantis 4 mg 4 mg PO DAILY 06/01/24 07/27/24 History capsule (Align (B.infantis)) aspirin 81 mg tablet,delayed 81 mg PO DAILY 06/01/24 07/27/24 History release atorvastatin 10 mg tablet 10 mg PO DAILY 06/01/24 07/27/24 History einnjwmpepo-bxbicieehsi-lps C-cori 2 tab PO DAILY 06/01/24 07/27/24 History 250 mg-200 mg-30 mg-2.5 mg tablet (Glucosamine-Chondroitin Complex) vitamins A,C,M-xrnm-ldbanv 4,296 1 cap PO BID 06/01/24 07/27/24 History mcg-226 mg-90 mg capsule (PreserVision AREDS) amlodipine 5 mg tablet (Norvasc) 2.5 mg (1/2 x 5 mg) PO QAM #30 tabs 06/05/24 07/27/24 Rx albuterol sulfate 1.25 mg/3 mL 1.25 mg (3 mL) continuous 08/13/24 Rx solution for nebulization nebulization Q6H PRN Shortness Of Breath Or Wheezing #75 mL escitalopram oxalate 20 mg tablet 20 mg PO DAILY 30 days #30 tabs 08/13/24 Rx fluticasone fur. 100 mcg-umeclid 1 inh inhalation DAILY #28 ea 08/13/24 Rx 62.5 mcg-vilant 25 mcg inhalat.powder (Trelegy Ellipta) lorazepam 0.5 mg tablet (Ativan) 0.5 mg PO Q6H PRN anxiety #20 tabs 08/13/24 Rx mirtazapine 7.5 mg tablet 7.5 mg PO HS 30 days #30 tabs 08/13/24 Rx morphine concentrate 100 mg/5 mL 10 mg (0.5 mL) PO Q6H PRN pain #30 08/13/24 Rx (20 mg/mL) oral solution mL polyethylene glycol 3350 17 gram 17 g PO DAILY PRN constipation #14 08/13/24 Rx oral powder packet (Miralax) ea sennosides 8.6 mg-docusate sodium 2 tab PO BID 30 days #120 tabs 08/13/24 Rx 50 mg tablet (Senokot-S) trolamine salicylate 10 % topical 1 applic EXT BID #100 grams 08/13/24 Rx cream (Myoflex) Hospital Stay Data Consultations 07/27/24 19:01 ED Decision to Admit Stat 07/28/24 12:32 Consult Orthopedic Surgery Routine Consult Pulmonology Routine 07/29/24 12:27 Consult Palliative Care Routine Diagnostic Imagining Performed Laboratory Results WBC 10.85 K/ul (4.8-10.8) H 08/03/24 06:04 RBC 3.81 M/uL (4.20-5.40) L 08/03/24 06:04 Hgb 11.0 g/dl (12.0-16.0) L 08/03/24 06:04 POC Hgb 12.2 g/dl (12.0-16.0) 07/28/24 18:23 Hct 33.7 % (37.0-47.0) L 08/03/24 06:04 POC Hct 36 % (37-47) L 07/28/24 18:23 MCV 88.5 fL (80.0-100.0) 08/03/24 06:04 MCH 28.9 pg (25.0-34.0) 08/03/24 06:04 MCHC 32.6 g/dL (32.0-36.0) 08/03/24 06:04 RDW Std Deviation 44.8 fL (36.4-46.3) 08/03/24 06:04 RDW Coeff of Lora 13.9 % (11.5-14.5) 08/03/24 06:04 Plt Count 313 K/uL (130-400) 08/03/24 06:04 MPV 11.3 fL (9.4-12.4) 08/03/24 06:04 Immature Gran % (Auto) 0.7 % 07/29/24 06:05 Neut % (Auto) 87.7 % 07/29/24 06:05 Lymph % (Auto) 6.5 % 07/29/24 06:05 Trinity % (Auto) 5.0 % 07/29/24 06:05 Eos % (Auto) 0.0 % 07/29/24 06:05 Baso % (Auto) 0.1 % 07/29/24 06:05 Neut # (Auto) 17.99 K/uL (1.40-6.50) H 07/29/24 06:05 Lymph # (Auto) 1.33 K/uL (1.20-3.40) 07/29/24 06:05 Trinity # (Auto) 1.02 K/uL (0.11-0.59) H 07/29/24 06:05 Eos # (Auto) 0.00 K/uL (0.00-0.50) 07/29/24 06:05 Baso # (Auto) 0.03 K/uL (0.00-0.20) 07/29/24 06:05 Immature Gran # (Auto) 0.15 K/uL (0.01-0.20) 07/29/24 06:05 Absolute Nucleated RBC 0.03 K/uL (0.00-0.12) 08/03/24 06:04 Nucleated RBC % (auto) 0.3 % 08/03/24 06:04 PT 10.4 Seconds (9.0-12.0) 07/27/24 19:09 INR 1.0 (0.9-1.1) 07/27/24 19:09 APTT 34 Seconds (21-31) H 07/27/24 19:09 PTT Ratio 1.3 07/27/24 19:09 POC pH 7.37 (7.35-7.45) 07/28/24 18:23 POC pCO2 47 mmHg (35-46) H 07/28/24 18:23 POC pO2 51 mmHg (80-95) L 07/28/24 18:23 POC HCO3 27 abdiel/L (19-24) H 07/28/24 18:23 POC Total CO2 28 mmol/L (24-31) 07/28/24 18:23 POC Base Excess 1.0 abdiel/L (-9-1.8) 07/28/24 18:23 ABG pH 7.27 (7.35-7.45) L 07/28/24 08:40 ABG pCO2 54 mmHg (35-46) H 07/28/24 08:40 ABG pO2 75 mmHg (80-95) L 07/28/24 08:40 ABG HCO3 25 mmol/L (19-24) H 07/28/24 08:40 POC ABG O2 Sat 84.0 % (90-95) L 07/28/24 18:23 ABG O2 Saturation 96.7 % (90-95) H 07/28/24 08:40 ABG Base Excess -2.8 mEq/L (-9-1.8) 07/28/24 08:40 Jonatan Test Pos (Pos) 07/28/24 08:40 VBG pH 7.25 (7.36-7.41) L 07/31/24 07:57 VBG pCO2 64 mmHg (38-50) H 07/31/24 07:57 VBG pO2 60 mmHg 07/31/24 07:57 VBG HCO3 28 mmol/L 07/31/24 07:57 VBG O2 Saturation 90.9 % 07/31/24 07:57 VBG Base Excess -0.6 mEq/L 07/31/24 07:57 Oxygen Given 93% 07/28/24 08:40 POC Sodium 137 mmol/L (135-144) 07/28/24 18:23 Sodium 140 mmol/L (136-145) 08/03/24 06:04 POC Potassium 5.4 mmol/L (3.3-5.0) H 07/28/24 18:23 Potassium 3.8 mmol/L (3.5-5.1) 08/03/24 06:04 Chloride 99 mmol/L (98-107) 08/03/24 06:04 Carbon Dioxide 40 mmol/L (21-32) H 08/03/24 06:04 Anion Gap 1 (3-11) L 08/03/24 06:04 BUN 21 mg/dl (6-23) 08/03/24 06:04 Creatinine 0.64 mg/dl (0.6-1.2) 08/03/24 06:04 Est Cr Clr Drug Dosing 47.0 ml/min 08/03/24 06:04 eGFR 87.09 08/03/24 06:04 BUN/Creatinine Ratio 32.8 (10-20) H 08/03/24 06:04 Glucose 169 mg/dl (70-99(Fasting)) H 08/03/24 06:04 POC Glucose 171 mg/dl (70-99) H 08/03/24 11:40 Estimat Average Glucose 108 mg/dl 07/28/24 05:33 Hemoglobin A1c 5.4 % (4.5-5.6) 07/28/24 05:33 Lactate 3.5 mmol/L (0.4-2.0) H* 07/27/24 20:49 Calcium 9.3 mg/dl (8.6-10.3) 08/03/24 06:04 Phosphorus 2.2 mg/dl (2.5-4.9) L 08/03/24 06:04 Magnesium 1.7 mg/dl (1.7-2.4) 08/03/24 06:04 Total Bilirubin 0.5 mg/dl (0.2-1.0) 07/27/24 17:32 AST 23 U/L (13-39) 07/27/24 17:32 ALT 16 U/L (7-52) 07/27/24 17:32 Alkaline Phosphatase 120 U/L (34-104) H 07/27/24 17:32 Troponin I High Sens 152.2 pg/ml (0-14) H* 07/29/24 06:05 B-Natriuretic Peptide 76 pg/ml (0-100) 07/27/24 17:32 Total Protein 7.6 gm/dl (6.0-8.3) 07/27/24 17:32 Albumin 4.1 gm/dl (3.4-5.0) 07/27/24 17:32 Globulin 3.5 gm/dl (2.5-4.0) 07/27/24 17:32 Albumin/Globulin Ratio 1.2 (0.9-2) 07/27/24 17:32 Adenovirus (PCR) Not Detected (NotDetected) 07/27/24 17:34 B. pertussis DNA (PCR) Not Detected (NotDetected) 07/27/24 17:34 B.parapertussis DNA PCR Not Detected (NotDetected) 07/27/24 17:34 C. pneumoniae DNA (PCR) Not Detected (NotDetected) 07/27/24 17:34 Coronavirus OC43 (PCR) Not Detected (NotDetected) 07/27/24 17:34 Coronavirus HKU1 (PCR) Not Detected (NotDetected) 07/27/24 17:34 Coronavirus 229E (PCR) Not Detected (NotDetected) 07/27/24 17:34 SARS-CoV-2 (PCR) Not Detected (NotDetected) 07/27/24 17:34 Coronavirus NL63 (PCR) Not Detected (NotDetected) 07/27/24 17:34 Human Metapneumovir PCR Not Detected (NotDetected) 07/27/24 17:34 Influenza Type A (PCR) Not Detected (NotDetected) 07/27/24 17:34 Influenza Type B (PCR) Not Detected (NotDetected) 07/27/24 17:34 M. pneumoniae (PCR) Not Detected (NotDetected) 07/27/24 17:34 Parainfluenza 1 (PCR) Not Detected (NotDetected) 07/27/24 17:34 Parainfluenza 2 (PCR) Not Detected (NotDetected) 07/27/24 17:34 Parainfluenza 3 (PCR) Not Detected (NotDetected) 07/27/24 17:34 Parainfluenza 4 (PCR) Not Detected (NotDetected) 07/27/24 17:34 RSV (PCR) Not Detected (NotDetected) 07/27/24 17:34 Entero/Rhino (PCR) Not Detected (NotDetected) 07/27/24 17:34 Impressions Knee X-Ray 07/28/24 11:06 XR knee RT 1 or 2V routine CLINICAL HISTORY: fall, rule out fracture COMPARISON: None FINDINGS: Osteopenia is noted. There is a moderate size joint effusion with lipohemarthrosis. There are moderate degenerative changes within the right knee, most pronounced within the patellofemoral compartment. There may be mild depression of the medial tibial plateau. There is cortical irregularity of the medial tibial plateau. IMPRESSION: Moderate size joint effusion with lipohemarthrosis suggestive of an acute intra- articular fracture. Probable medial tibial plateau fracture with minimal depression. A CT of the right knee could be obtained for further evaluation. ACT 112: Negative or not required by law. Electronically signed by: Yehuda Miller M.D. 07/28/2024 12:18 PM Chest X-Ray 08/09/24 18:04 EXAM: XR chest 1V portable CLINICAL HISTORY: Choking. TECHNIQUE: An X-ray image of the chest is obtained in AP projection. COMPARISON: With the prior study dated 07/31/2024. FINDINGS: Pulmonary Parenchyma: Unchanged bilateral hialr vascular congestion noted. Unchanged bilateral basal atelectatic bands were noted. Still noted left lower lung zone haziness. Unchanged right hilr radio-opaque ovoid shadow, referring to enlarged calcified lymph node. No evidence of pleural effusion or pleural thickening. Heart and Mediastinum: Heart size and shape are normal. No mediastinal widening or masses. No hilar or mediastinal lymphadenopathy. Bony Thorax: Scoliosis of the thoracic spine noted with apex to the right side. The bony thorax appears intact without fractures or deformities. Soft Tissues: Soft tissues overlying the chest wall are unremarkable. IMPRESSION: 1. Unchanged bilateral hilar vascular congestion was noted. 2. Unchanged bilateral basal atelectatic bands were noted. 3. Still noted left lower lung zone haziness. 4. Unchanged right hilr radio-opaque ovoid shadow, referring to enlarged calcified lymph node. 5. No gross interval change since the prior study. Electronically signed by Suleiman Little 08-09-2024 7:32 PM Pending Results Patient Have Any Pending Studies at Discharge: No Discharge Instructions Given to Patient (Per Discharging Provider) please refer to accompanying hospital discharge summary. Total Time Total Time Spent Total Time Spent (In Minutes): 35 minutes
[2024-08-13] MEDS ORDERED: ONDANSETRON 4 MG OD TAB PO PRN (09:50)
[2024-08-13] MEDS: MoRPHine SULFATE 10 MG/0.5 ML UDP PO PRN (09:50)
== END 2024-08-13 12:55 | DRG 189 ==
LOC: ED 17:21 → SUATTDRO 19:26 → 4W 19:26 → 3E 08-05 21:37